=== PATIENT | female | born 1950 | race Caucasian/White ===

== ENCOUNTER 2021-12-28 13:40 | Emergency (ER) | payer MEDICARE, OTHER ==
[2021-12-28 13:52] VITALS: BP 190/78
[2021-12-28 14:13] LABS: BASOPHILS % (AUTO) 0.5 %; EOSINOPHILS # (AUTO) 0.2 10^3/uL (0.0-0.7); EOSINOPHILS % (AUTO) 1.9 %; HCT - HEMATOCRIT 46.8 % (37.0-47.0); HGB - HEMOGLOBIN 14.5 g/dL (12.0-16.0); LYMPHOCYTES # (AUTO) 1.3 10^3/uL (1.5-3.5); LYMPHOCYTES % (AUTO) 17.1 %; MEAN CORPUSCULAR HEMOGLOBIN 26.8 pg (27.0-31.0); MEAN CORPUSCULAR VOLUME 86.3 fL (81.0-99.0); MEAN PLATELET VOLUME 10.9 fL (7.9-10.8); MONOCYTES # (AUTO) 0.7 10^3/uL (0.0-1.0); MONOCYTES % (AUTO) 8.3 %; NEUTROPHILS # (AUTO) 5.7 10^3/uL (1.5-6.6); NEUTROPHILS % (AUTO) 71.9 %; PLT - PLATELET COUNT 153 10^3/uL (130-450); RED BLOOD COUNT 5.42 10^6/uL (4.20-5.40); RED CELL DISTRIBUTION WIDTH 13.9 % (12.0-15.0); WHITE BLOOD COUNT 7.9 x10^3/uL (4.8-10.8)
[2021-12-28 14:28] LABS: ALBUMIN 3.7 g/dL (3.2-5.5); ALKALINE PHOSPHATASE 63 IU/L (42-121); ALT ALANINE AMINOTRANSFERASE < 10 IU/L (10-60); AST ASPARTATE AMINOTRANSFERASE 13 IU/L (10-42); BILIRUBIN,TOTAL 0.3 mg/dL (0.2-1.0); BUN - BLOOD UREA NITROGEN 29 mg/dL (6-20); CALCIUM 9.6 mg/dL (8.5-10.3); CARBON DIOXIDE - CO2 28 mmol/L (21-32); CHLORIDE 102 mmol/L (101-111); CREATININE 1.3 mg/dL (0.4-1.0); GFR - MDRD 40 (>89); GLUCOSE 98 mg/dL (70-100); LIPASE 112 U/L (22-51); POTASSIUM 4.4 mmol/L (3.5-5.0); SODIUM 140 mmol/L (135-145); TOTAL PROTEIN 7.3 g/dL (6.7-8.2)
--- NOTE | 2021-12-28 14:45 | XRAY Report ---
PROCEDURE: Chest 1 View X-Ray INDICATIONS: Chest Pain TECHNIQUE: One view of the chest was acquired. COMPARISON: None. FINDINGS: Surgical changes and devices: Partially visualized IVC filter is noted. Lungs and pleura: There is blunting of the right costophrenic angle. Mild coarsening is present with in the right base. Mediastinum: Mediastinal contours appear normal. Heart size is mildly enlarged. Bones and chest wall: No suspicious bony lesions. Overlying soft tissues appear unremarkable. IMPRESSION: Trace blunting of the right costophrenic angle with basilar coarsening. This could represent trace ef fusion with atelectasis versus developing pneumonia. Reviewed by: Jazzy Tee MD on 12/28/2021 2:43 PM PST Approved by: Jazzy Tee MD on 12/28/2021 2:43 PM [facility] Station ID: [id number]
--- NOTE | 2021-12-28 15:44 | Ultrasound Report ---
PROCEDURE: Duplex Ext Veins Bilateral INDICATIONS: Joni Milligan MD TECHNIQUE: Real-time imaging, as well as color and pulse Doppler interrogation, were performed of the deep veins of both legs from the inguinal ligament to the popliteal fossa. COMPARISON: None FINDINGS: Right: Intraluminal filling defect within proximal right popliteal vein is seen. Right popliteal vein is partially compressible. Flow is seen proximal and distal to the filling defect. Left: The deep veins are normally compressible, and free of intraluminal thrombus. Color and pulse Doppler demonstrate normal phasic intravascular flow. There is normal augmentation response to distal compr ession maneuver. IMPRESSION: 1. Suggestion of chronic nonocclusive venous thrombosis involving proximal right popliteus vein. 2. No evidence of deep venous thrombosis is seen in visualized left lower extremity veins. Reviewed by: Jeff Duarte MD on 12/28/2021 3:43 PM PST Approved by: Jeff Duarte MD on 12/28/2021 3:43 PM PST Station ID: [id number]
[2021-12-28] MEDS ORDERED: FUROSEMIDE 20 MG TABLET PO STA (15:49)
[2021-12-28] MEDS ORDERED: HYDROcod/ACETAM 5/325 MG TABLET PO STA (15:49)
--- NOTE | 2021-12-28 15:57 | ED Physician Documentation ---
History of Present Illness - Stated complaint Stated Complaint: BLOOD CLOT ON BOTH LEGS - Chief complaint Chief Complaint: Cardiac - History obtained from History obtained from: Patient, Friend - History of Present Illness Timing: Other (several weeks) Pain level max: 6 Pain level now: 6 - Additonal information Additional information: Patient is a 71-year-old female who presents to the emergency department with swelling in her bilateral lower extremities for the past several weeks, increasingly swollen and painful over the past few days. Has not taken anything for pain. She went to the walk-in clinic today, they were concerned about a recurrent DVT so sent her here for ultrasound. The patient has also had mild shortness of breath with exertion. Does have a history of heart failure. Has not taken any diuretics. She is on Xarelto for prior DVTs and factor V Leiden deficiency. No fevers. No chills. No cough. No congestion. No nausea or vomiting. She does not wear socks or compression stockings. Worse with standing, better with elevating the legs. Review of Systems Constitutional: denies: Fever, Chills Nose: denies: Rhinorrhea / runny nose, Congestion Respiratory: denies: Cough GI: denies: Abdominal Pain, Nausea, Vomiting, Diarrhea Skin: denies: Rash Musculoskeletal: denies: Neck pain, Back pain Neurologic: denies: Headache PD PAST MEDICAL HISTORY - Past Medical History Past Medical History: Yes Cardiovascular: Congestive heart failure, Deep vein thrombosis, Other (Factor V Leiden) - Present Medications Home Medications: Ambulatory Orders Medication Instructions Recorded Confirmed Furosemide [Lasix] 20 mg PO DAILY #7 tablet 12/28/21 HYDROcod/ACETAM 5/325 [Holland 5/325] 1 - 2 ea PO Q6H PRN #10 tablet 12/28/21 - Allergies Allergies/Adverse Reactions: Allergies Allergy/AdvReac Type Severity Reaction Status Date / Time cortisone Allergy Hives Verified 12/28/21 13:52 lisinopril Allergy Unknown Verified 12/28/21 13:52 - Living Situation Living Arrangement: reports: At home - Family History Family history: reports: Non contributory PD ED PE NORMAL - Vitals Vital signs reviewed: Yes - General General: Alert and oriented X 3, No acute distress, Well developed/nourished - HEENT HEENT: PERRL, Moist mucous membranes - Neck Neck: Supple, no meningeal sign - Cardiac Cardiac: RRR, Strong equal pulses - Respiratory Respiratory: No respiratory distress, Clear bilaterally - Abdomen Abdomen: Soft, Non tender, Non distended - Derm Derm: Warm and dry, No rash - Extremities Extremities: Other (2+ bilateral pitting edema. Up to the knees. NVI. Brisk cap refill) - Neuro Neuro: Alert and oriented X 3 - Psych Psych: Normal mood, Normal affect Results - Vitals Vitals: Vital Signs - 24 hr 12/28/21 12/28/21 13:47 15:52 Temperature 36.9 C Heart Rate 57 L 55 L Respiratory 16 17 Rate Blood Pressure 190/78 H O2 Saturation 98 98 Oxygen O2 Source Room air - Labs Labs: Laboratory Tests 12/28/21 12/28/21 12/28/21 14:09 14:09 14:09 WBC 7.9 RBC 5.42 H Hgb 14.5 Hct 46.8 MCV 86.3 MCH 26.8 L MCHC 31.0 L RDW 13.9 Plt Count 153 MPV 10.9 H Neut # (Auto) 5.7 Lymph # (Auto) 1.3 L Dillon # (Auto) 0.7 Eos # (Auto) 0.2 Baso # (Auto) 0.0 Absolute Nucleated RBC 0.00 Nucleated RBC % 0.0 Sodium 140 Potassium 4.4 Chloride 102 Carbon Dioxide 28 Anion Gap 10.0 BUN 29 H Creatinine 1.3 H Estimated GFR (MDRD) 40 L Glucose 98 Calcium 9.6 Total Bilirubin 0.3 AST 13 ALT < 10 L Alkaline Phosphatase 63 B-Natriuretic Peptide 208 H Total Protein 7.3 Albumin 3.7 Globulin 3.6 Albumin/Globulin Ratio 1.0 Lipase 112 H - Rads (name of study) Duplex ultrasound bilateral lower extremity Radiology: Final report received, EMP read contemporaneously, See rad report (Chronic right lower extremity DVT) Chest x-ray Radiology: Final report received, EMP read contemporaneously, See rad report PD MEDICAL DECISION MAKING - ED course Complexity details: reviewed results, re-evaluated patient, considered differential, d/w patient, d/w family ED course: 71-year-old female with bilateral peripheral edema and what appears to be mild pulmonary vascular congestion on chest x-ray, mildly elevated BNP. We will place her on Lasix for a few days for the edema. No evidence of acute DVT or PE. Patient is ambulating without difficulty. Pain well controlled. Patient will follow up with her doctor for an echocardiogram and further work-up. Patient counseled regarding signs and symptoms for which I believe and urgent re-evaluation would be necessary. Patient with good understanding of and agreement to plan and is comfortable going home at this time This document was made in part using voice recognition software. While efforts are made to proofread this document, sound alike and grammatical errors may occur. Departure - Departure Disposition: 01 Home, Self Care Clinical Impression: Peripheral edema Congestive heart failure Qualifiers: Heart failure type: unspecified Heart failure chronicity: acute on chronic Qualified Code(s): I50.9 - Heart failure, unspecified Condition: Good Instructions: ED CHF General, ED Edema Legs Bilateral Follow-Up: STEFF BEASLEY DO [Primary Care Provider] - Within 1 week Prescriptions: Furosemide [Lasix] 20 mg PO DAILY #7 tablet HYDROcod/ACETAM 5/325 [Holland 5/325] 1 - 2 ea PO Q6H PRN #10 tablet PRN Reason: Pain Comments: Please follow-up with your doctor for further care. You appear to have a small exacerbation of your heart failure. You should have a repeat echocardiogram with your doctor. Please use the medications as prescribed. Return if you worsen. Your prescriptions were sent to [facility] in [place]. I am prescribing a short course of narcotic pain medication for you. These are potentially dangerous and addictive medications that should be used carefully. These medications may constipate you. Take an [id number] stool softener (docusate) twice daily with plenty of water while taking these medications. If you go 24 hours without a bowel movement, take [id number] miralax, per package instructions. Do not drink or drive while taking these medications. If you received narcotic or sedating medications while in the emergency department, do not drive for 24 hours. Store this medication in a safe, secure place and out of reach of children. It is a violation of federal law to give or sell this medication to another person or to use in a manner other than prescribed. The ED will not refill narcotic prescriptions, including prescriptions lost or stolen. To dispose of unwanted medications: 1. [facility] at [address] in [place] has a medication drop box. They accept prescription medications (in pill form) Friday through Friday 9:00 a.m. to 5:00 p.m. 2. The [facility] [employer] accepts prescription medications (in pill form only) for disposal year round. Call for more information. 3. Contact the [facility] for the next [facility] sponsored prescription drug collection event. , [phone], or [phone];
== END 2021-12-28 16:05 | disposition home or self-care (01) ==
LOC: ED 13:40
DX: I50.9 Heart failure, unspecified (principal); R60.0 Localized edema
CPT/HCPCS: 36415; 71045; 80053; 83690; 83880; 85025; 93005; 93970; 99284; A9270

== ENCOUNTER 2022-01-04 10:55 | Emergency (ER) | payer MEDICARE, OTHER ==
--- OUTSIDE RECORDS SUMMARY | 2022-01-04 12:22 | EXTERNAL MEDICAL SUMMARY RPT | Continuity of Care Document ---
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 (unknown) in her home. the (units (unknown) date) patient states that unknown) her fingers go numb. (unknown) (no (unknown) (unknown) internal bleeding (units (unknown) date) unknown) (unknown) (no (unknown) (unknown) is accompanied by her (un its (unknown) date) friend who is also her unknown ) caregiver. the patient states that (unknown) (no (unknown) (unknown) lisinopril Adverse (units (unknown) date) Reaction (Severe, unknown) Verified 01/02/22 07:24) (unknown) (no (unknown) (unknown) may occur. Occasional (un its (unknown) date) wrong-word or unknown) 'sound-alike' substitutions may have (unknown) (no (unknown) (unknown) minoxidil 2.5 mg (units (unknown) date) tablet See Rx unknown) Instructions .Route .COMPLEX #60 tabs 10/29/21 (unknown) (no (unknown) (unknown) mold [MOLD] Allergy (unit s (unknown) date) (Intermediate, unknown) Verified 01/02/22 07:24) (unknown) (no (unknown) (unknown) occurred due to the (unit s (unknown) date) inherent limitations unknown) of voice recognition software. Please (unknown) (no (unknown) (unknown) read the note (units ( unknown) date) carefully and unknown) recognize, using context, where these substitutions (unknown) (no (unknown) (unknown) rivaroxaban 20 mg (units (unknown) date) tablet (Xarelto) 20 mg unknown ) PO QPM #90 tabs 11/28/21 [Rx Confirmed (unknown) (no (unknown) (unknown) she went to the (units (unknown) date) [facility] on unknown) friday and they prescribed her a water pill. (unknown) (no (unknown) (unknown) software. Although (units (unknown) date) every effort is made unknown) to edit content, machine sewer errors (unknown) (no (unknown) (unknown) that the patient is (unit s (unknown) date) starting to forget unknown) daily tasks and where things are located (unknown) (no (unknown) (unknown) the patient states (units (unknown) date) the edema has not unknown) improved. the patients caregiver states Social History date description facility [id number]+0000 Current some day smoker [facility] +0000 Current some day smoker [facility] Vital Signs date measurement value units [id number]+0000 BMI BMI 31.4 kg/m2 [id number]+0000 BP_diastolic BP_diastolic 64 mmHg [id number]+0000 BP_systolic BP_systolic 110 mmHg [id number]+0000 heart_rate heart_rate 64 /min [id number]+0000 height_metric height_metric 170.18 cm [id number]+0000 height_standard height_standard 67 in [id number]+0000 temperature_metric temperature_metric 36.56 C [id number]+0000 temperature_standard temperature_standard 9 7.8 F [id number]+0000 weight_metric weight_metric 90.83 kg [id number]+0000 weight_standard weight_standard 200.25 lb [id number]+0000 BP_diastolic BP_diastolic 80 mmHg [id number]+0000 BP_systolic BP_systolic 150 mmHg [id number]+0000 heart_rate heart_rate 57 /min [id number]+0000 o2_saturation o2_saturation 99 % +0000 temperature_metric temperature_metric 36.61 C +0000 temperature_standard temperature_standard 9 7.9 F +0000 weight_metric weight_metric 97.52 kg [id number]+0000 weight_standard weight_standard 214.99 lb
--- NOTE | 2022-01-04 13:26 | XRAY Report ---
PROCEDURE: Chest 1 View X-Ray INDICATIONS: Chest pain TECHNIQUE: One view of the chest was acquired. COMPARISON: 12/28/2021. FINDINGS: Surgical changes and devices: None. Lungs and pleura: Trace right pleural effusion. Mild interstitial pulmonary edema. Mediastinum: Mediastinal contours appear normal. Mild cardiomegaly. Bones and chest wall: No suspicious bony lesions. 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 Overlying soft tissues appear unremarkable. IMPRESSION: Mild congestive heart failure exacerbation. Reviewed by: Be Winter MD on 01/04/2022 1:25 PM PST Approved by: Be Winter MD on 01/04/2022 1:25 PM PST Station ID: [id number]
[2022-01-04 13:38] LABS: BASOPHILS % (AUTO) 0.6 %; EOSINOPHILS # (AUTO) 0.2 10^3/uL (0.0-0.7); EOSINOPHILS % (AUTO) 2.3 %; HCT - HEMATOCRIT 49.4 % (37.0-47.0); HGB - HEMOGLOBIN 15.3 g/dL (12.0-16.0); LYMPHOCYTES # (AUTO) 1.1 10^3/uL (1.5-3.5); LYMPHOCYTES % (AUTO) 16.2 %; MEAN CORPUSCULAR HEMOGLOBIN 26.6 pg (27.0-31.0); MEAN CORPUSCULAR VOLUME 85.9 fL (81.0-99.0); MEAN PLATELET VOLUME 10.5 fL (7.9-10.8); MONOCYTES # (AUTO) 0.3 10^3/uL (0.0-1.0); MONOCYTES % (AUTO) 4.6 %; PLT - PLATELET COUNT 213 10^3/uL (130-450); RED BLOOD COUNT 5.75 10^6/uL (4.20-5.40); RED CELL DISTRIBUTION WIDTH 13.7 % (12.0-15.0); WHITE BLOOD COUNT 6.6 x10^3/uL (4.8-10.8)
[2022-01-04 13:56] LABS: ALBUMIN 4.2 g/dL (3.2-5.5); BILIRUBIN,TOTAL 0.6 mg/dL (0.2-1.0); CALCIUM 9.4 mg/dL (8.5-10.3); CREATININE 1.5 mg/dL (0.4-1.0); TOTAL PROTEIN 8.5 g/dL (6.7-8.2)
--- NOTE | 2022-01-04 14:40 | ED Physician Documentation ---
PD HPI DYSPNEA - Stated complaint Stated Complaint: SWELLING BOTH LEGS - Chief complaint Chief Complaint: Cardiac - History obtained from History obtained from: Patient - Additional information Additional information: 71-year-old woman with history of CHF presents with a friend for apparent CHF exacerbation. She also has a history of DVT on DOAC. She was seen in this emergency department on the th of this month and treated with diuretics and was doing well but had more pedal edema and was seen at [facility] and prescribed lisinopril and increased dose of diuretics. Unfortunately she is allergic to lisinopril and they sent to the wrong pharmacy so she presents here for evaluation and treatment. She has no dyspnea on rest, she does have dyspnea with ambulation and complains of pain and swelling both legs. Review of Systems Ten Systems: 10 systems reviewed and negative Constitutional: reports: Reviewed and negative Ears: reports: Reviewed and negative Throat: reports: Reviewed and negative PD PAST MEDICAL HISTORY - Past Medical History Cardiovascular: Congestive heart failure, Deep vein thrombosis, Other (Factor V Leiden) - Present Medications Home Medications: Ambulatory Orders Medication Instructions Recorded Confirmed Furosemide [Lasix] 20 mg PO DAILY #7 tablet 12/28/21 HYDROcod/ACETAM 5/325 [[place] 5/325] 1 - 2 ea PO Q6H PRN #10 tablet 12/28/21 Furosemide [Lasix] 40 mg PO DAILY #20 tablet 01/04/22 Isosorbide Mononitrate [Isosorbide 60 mg PO DAILY #20 tab 01/04/22 Mononitrate ER] Potassium Chloride 10 meq PO DAILY #20 tab 01/04/22 - Allergies Allergies/Adverse Reactions: Allergies Allergy/AdvReac Type Severity Reaction Status Date / Time cortisone Allergy Hives Verified 01/04/22 12:56 lisinopril Allergy Unknown Verified 01/04/22 12:56 PD ED PE NORMAL - Vitals Vital signs reviewed: Yes - General General: Alert and oriented X 3, No acute distress - Cardiac Cardiac: RRR, No murmur - Respiratory Respiratory: Other (Diminished at the bases without rales) - Back Back: No CVA TTP, No spinal TTP - Derm Derm: Normal color, Warm and dry - Extremities Extremities: Other (2+ pitting pedal edema to the mid calf, nontender, no cellulitis) Results - Vitals Vitals: Vital Signs - 24 hr 01/04/22 12:51 Temperature 37.5 C Heart Rate 53 L Respiratory 20 Rate Blood Pressure 189/81 H O2 Saturation 96 Oxygen O2 Source Room air - EKG (time done) 1302 Rate: Rate (enter#) (62) Rhythm: NSR [place]: Normal Intervals: Normal UT QRS: Normal Ischemia: No: ST elevation c/w ischemia, ST elevation c/w repol Computer interpretation: Agree with computer - Labs Labs: Laboratory Tests 01/04/22 01/04/22 01/04/22 13:32 13:32 13:32 WBC 6.6 RBC 5.75 H Hgb 15.3 Hct 49.4 H MCV 85.9 MCH 26.6 L MCHC 31.0 L RDW 13.7 Plt Count 213 MPV 10.5 Neut # (Auto) 5.0 Lymph # (Auto) 1.1 L Rankin # (Auto) 0.3 Eos # (Auto) 0.2 Baso # (Auto) 0.0 Absolute Nucleated RBC 0.00 Nucleated RBC % 0.0 Sodium 141 Potassium Chloride 105 Carbon Dioxide 26 Anion Gap 10.0 BUN 27 H Creatinine 1.5 H Estimated GFR (MDRD) 34 L Glucose 90 Calcium 9.4 Total Bilirubin 0.6 AST 23 ALT 13 Alkaline Phosphatase 76 Troponin I High Sens 15.9 H* B-Natriuretic Peptide Total Protein 8.5 H Albumin 4.2 Globulin 4.3 H Albumin/Globulin Ratio 1.0 Lipase 46 01/04/22 13:32 WBC RBC Hgb Hct MCV MCH MCHC RDW Plt Count MPV Neut # (Auto) Lymph # (Auto) Rankin # (Auto) Eos # (Auto) Baso # (Auto) Absolute Nucleated RBC Nucleated RBC % Sodium Potassium Chloride Carbon Dioxide Anion Gap BUN Creatinine Estimated GFR (MDRD) Glucose Calcium Total Bilirubin AST ALT Alkaline Phosphatase Troponin I High Sens B-Natriuretic Peptide 308 H Total Protein Albumin Globulin Albumin/Globulin Ratio Lipase PD MEDICAL DECISION MAKING - ED course ED course: This is a david 71-year-old woman who presents with a mild exacerbation of heart failure, Single view chest x-ray interpreted contemporaneously by me demonstrates mild CHF, Lab work demonstrates mildly elevated BNP, up about 100 points from the previous value, troponin elevated at 15.9 but still minimally elevated that it probably does not merit further immediate work-up. She is started on a higher dose of Lasix. Lisinopril was held given allergy, she thinks her allergy was angioedema so I am not prescribing SILVERIO inhibitor either and we are starting some Imdur. Departure - Departure Disposition: Home, Self Care Clinical Impression: Peripheral edema Congestive heart failure Qualifiers: Heart failure type: unspecified Heart failure chronicity: unspecified Qualified Code(s): I50.9 - Heart failure, unspecified Condition: Good Record reviewed to determine appropriate education?: Yes Instructions: ED CHF General Prescriptions: Isosorbide Mononitrate [Isosorbide Mononitrate ER] 60 mg PO DAILY #20 tab Furosemide [Lasix] 40 mg PO DAILY #20 tablet Potassium Chloride 10 meq PO DAILY #20 tab Comments: I sent your prescriptions electronically to [facility] in [place]. Follow-up with your doctor on Friday as scheduled. Return for new or worsening symptoms. Elevate the legs and wrap as you have planned. Low-salt diet.
[2022-01-04 15:07] VITALS: BP 183/84
== END 2022-01-04 14:52 | disposition home or self-care (01) ==
LOC: ED 10:55
DX: I50.9 Heart failure, unspecified (principal); D68.51 Activated protein C resistance; Z86.718 Personal history of other venous thrombosis and embolism; Z79.01 Long term (current) use of anticoagulants; Z88.8 Allergy status to other drugs, medicaments and biological substances
CPT/HCPCS: 36415; 80053; 83690; 83880; 84484; 85025; 93005; 99284

== ENCOUNTER 2022-02-18 11:18 | Emergency (ER) | payer MEDICARE, OTHER ==
[2022-02-18 12:16] LABS: BASOPHILS # (AUTO) 0.1 10^3/uL (0.0-0.1); BASOPHILS % (AUTO) 0.7 %; EOSINOPHILS # (AUTO) 0.2 10^3/uL (0.0-0.7); EOSINOPHILS % (AUTO) 3.2 %; HCT - HEMATOCRIT 49.6 % (37.0-47.0); HGB - HEMOGLOBIN 15.7 g/dL (12.0-16.0); LYMPHOCYTES # (AUTO) 1.5 10^3/uL (1.5-3.5); LYMPHOCYTES % (AUTO) 21.1 %; MEAN CORPUSCULAR HEMOGLOBIN 27.5 pg (27.0-31.0); MEAN CORPUSCULAR HGB CONC 31.7 g/dL (32.0-36.0); MEAN PLATELET VOLUME 10.6 fL (7.9-10.8); MONOCYTES # (AUTO) 0.4 10^3/uL (0.0-1.0); NEUTROPHILS # (AUTO) 4.9 10^3/uL (1.5-6.6); NEUTROPHILS % (AUTO) 68.6 %; PLT - PLATELET COUNT 210 10^3/uL (130-450); RED CELL DISTRIBUTION WIDTH 13.8 % (12.0-15.0); WHITE BLOOD COUNT 7.2 x10^3/uL (4.8-10.8)
--- OUTSIDE RECORDS SUMMARY | 2022-02-18 12:25 | EXTERNAL MEDICAL SUMMARY RPT | Continuity of Care Document ---
:1950 Author Organization [facility] Address [address] [place] [address] Phone Care Team Providers Name Role Phone Carlitos Forrest Unavailable Unavailable Allergies and Intolerances date description facility type (no date) Mild [facility] (unknown) (no date) aspirin [facility] (unknown) (no date) cortisone [facility] (unknown) (no date) lisinopril [facility] (unknown) (no date) mold [facility] (unknown) Encounters No information. Functional Status No information. Immunizations No information. Medications date description facility 2021-11-28 00:00 Rivaroxaban [facility] 2022-01-02 00:00 Potassium Chloride [facility] 2022-01-25 00:00 Potassium Chloride [facility] 2022-01-25 00:00 Amlodipine [facility] 2022-01-02 00:00 Amlodipine [facility] 2022-01-02 00:00 Furosemide [facility] 2022-01-25 00:00 Furosemide [facility] 2022-01-24 00:00 Isosorbide Mononitrate [facility] Problems date description facility 2021-11-28 00:00 Sebaceous cyst [facility] 2021-12-03 15:28 Activated protein C resistance [facility] 2021-12-03 15:28 Presence of other vascular implants and grafts [facility] 2021-12-04 09:16 Activated protein C resistance [facility] 2021-12-04 09:16 Presence of other vascular implants and grafts [facility] 2021-12-04 11:34 Activated protein C resistance [facility] 2021-12-04 11:34 Presence of other vascular implants and grafts [facility] 2021-12-28 00:00 Patient left before treatment completed [facility] 2022-01-02 00:00 Benign essential hypertension [facility] 2022-01-02 10:06 Nicotine dependence, unspecified, uncom plicated [facility] 2022-01-02 10:06 Localized edema [facility] 2022-01-24 00:00 Acute congestive heart failure [facility] 2022-01-25 00:00 Tobacco dependence syndrome [facility] 2022-01-25 00:00 Chronic obstructive pulmonary disease [facility] Procedures date description facility 2022-01-24 00:00 X-ray of chest, single view [facility] Results/Labs test date author facility value unit interpret ation Result panel 1 (unknown[facility] (no [facility]) Result panel 2 (unknown) (no date) ([facility] Result panel 3 (unknown) (no date) (unknown[facility] Result panel 4 (unknown) (no date) (unknown[facility] Result panel 5 (unknown) (no date) (unknown[facility] Result panel 6 (unknown) (no date) (unknown[facility] Result panel 7 (unknown) (no date) (unknown[facility] Result panel 8 (unknown) (no date) (unknown[facility] Result panel 9 (unknown) (no date) (unknown[facility] Result panel 10 (unknown) (no date) (unknown[facility] Result panel 11 (unknown) (no date) (unknown[facility] Result panel 12 (unknown) (no date) (unknown[facility] Result panel 13 (unknown) (no date) (unknown[facility] Result panel 14 (unknown) (no date) (unknown[facility] Result panel 15 (unknown) (no date) (unknown[facility] Result panel 16 (unknown) (no date) (unknown[facility] Result panel 17 (unknown) (no date) (unknown[facility] Result panel 18 (unknown) (no date) (unknown[facility] Result panel 19 (unknown) (no date) (unknown[facility] Result panel 20 (unknown) (no date) (unknown[facility] Result panel 21 (unknown) (no date) (unknown[facility] Result panel 22 (unknown) (no date) (unknown[facility] Result panel 23 (unknown) (no date) (unknown[facility] Result panel 24 (unknown) (no date) (unknown[facility] Result panel 25 (unknown) (no date) (unknown[facility] Result panel 26 (unknown) (no date) (unknown[facility] Result panel 27 (unknown) (no date) (unknown[facility] Result panel 28 (unknown) (no date) (unknown[facility] Result panel 29 (unknown) (no date) (unknown[facility] Result panel 30 (unknown) (no date) (unknown[facility] Result panel 31 (unknown) (no date) (unknown[facility] Result panel 32 (unknown) (no date) (unknown[facility] Result panel 33 (unknown) (no date) (unknown[facility] Result panel 34 (unknown) (no date) (unknown[facility] Result panel 35 (unknown) (no date) (unknown[facility] Result panel 36 (unknown) (no date) (unknown[facility] Result panel 37 (unknown) (no date) (unknown[facility] Result panel 38 (unknown) (no date) (unknown[facility] Result panel 39 (unknown) (no date) (unknown[facility]) Result panel 40 (unknown) (no date) (unknown[facility] Result panel 41 (unknown) (no date) (unknown[facility] Result panel 42 (unknown) (no date) (unknown[facility] Result panel 43 (unknown) (no date) (unknown[facility] Result panel 44 (unknown) (no date) (unknown[facility] Result panel 45 (unknown) (no date) (unknown[facility] Result panel 46 (unknown) (no date) (unknown[facility] Result panel 47 (unknown) (no date) (unknown[facility] Result panel 48 (unknown) (no date) (unknown[facility] Result panel 49 (unknown) (no date) (unknown[facility] Result panel 50 (unknown) (no date) (unknown[facility] Result panel 51 (unknown) (no date) (unknown[facility] Result panel 52 (unknown) (no date) (unknown[facility]) Result panel 53 (unknown) (no date) (unknown[facility] Result panel 54 (unknown) (no date) (unknown[facility]) Result panel 55 (unknown) (no date) (unknown[facility] Result panel 56 (unknown) (no date) (unknown[facility]) Result panel 57 (unknown) (no date) (unknown[facility] Result panel 58 (unknown) (no date) (unknown[facility]) Result panel 59 (unknown) (no date) (unknown[facility] Result panel 60 (unknown) (no date) (unknown[facility]) Result panel 61 (unknown) (no date) (unknown[facility] Result panel 62 (unknown) (no date) (unknown[facility] Result panel 63 (unknown) (no date) (unknown[facility] Result panel 64 (unknown) (no date) (unknown[facility]) Result panel 65 (unknown) (no date) (unknown[facility] Result panel 66 (unknown) (no date) (unknown[facility]) Result panel 67 (unknown) (no date) (unknown[facility] Result panel 68 (unknown) (no date) (unknown[facility] Result panel 69 (unknown) (no date) (unknown[facility]) Result panel 70 (unknown) (no date) (unknown[facility] Result panel 71 (unknown) (no date) (unknown[facility]) Result panel 72 (unknown) (no date) (unknown[facility] Result panel 73 (unknown) (no date) (unknown[facility] Result panel 74 (unknown) (no date) (unknown[facility] Result panel 75 (unknown) (no date) (unknown[facility]) Result panel 76 (unknown) (no date) (unknown[facility] Result panel 77 (unknown) (no date) (unknown[facility]) Result panel 78 (unknown) (no date) (unknown[facility] Result panel 79 (unknown) (no date) (unknown[facility]) Result panel 80 (unknown) (no date) (unknown[facility] Result panel 81 (unknown) (no date) (unknown[facility] Result panel 82 (unknown) (no date) (unknown[facility] Result panel 83 (unknown) (no date) (unknown[facility] Result panel 84 (unknown) (no date) (unknown[facility] Result panel 85 (unknown) (no date) (unknown[facility] Result panel 86 (unknown) (no date) (unknown[facility] Result panel 87 (unknown) (no date) (unknown[facility] Result panel 88 (unknown) (no date) (unknown[facility] Result panel 89 (unknown) (no date) (unknown[facility] Result panel 90 (unknown) (no date) (unknown[facility] Result panel 91 (unknown) (no date) (unknown[facility] Result panel 92 (unknown) (no date) (unknown[facility] Result panel 93 (unknown) (no date) (unknown[facility] Result panel 94 (unknown) (no date) (unknown[facility] Result panel 95 (unknown) (no date) (unknown[facility] Result panel 96 (unknown) (no date) (unknown[facility] Result panel 97 (unknown) (no date) (unknown[facility] Result panel 98 (unknown) (no date) (unknown[facility]) Result panel 99 (unknown) (no date) (unknown[facility] Result panel 100 (unknown) (no date) (unknown[facility] Result panel 101 (unknown) (no date) (unknown[facility]) Result panel 102 (unknown) (no date) (unknown[facility] Result panel 103 (unknown) (no date) (unknown[facility] Result panel 104 (unknown) (no date) (unknown[facility]) Result panel 105 (unknown) (no date) (unknown[facility] Result panel 106 (unknown) (no date) (unknown[facility]) Result panel 107 (unknown) (no date) (unknown[facility] Result panel 108 (unknown) (no date) (unknown[facility] Result panel 109 (unknown) (no date) (unknown[facility]) Result panel 110 (unknown) (no date) (unknown[facility]) Result panel 111 (unknown) (no date) (unknown[facility] Result panel 112 (unknown) (no date) (unknown[facility]) Result panel 113 (unknown) (no date) (unknown[facility] Result panel 114 (unknown) (no date) (unknown[facility] Result panel 115 (unknown) (no date) (unknown[facility]) Result panel 116 (unknown) (no date) (unknown[facility] Result panel 117 (unknown) (no date) (unknown[facility]) Result panel 118 (unknown) (no date) (unknown[facility] Result panel 119 (unknown) (no date) (unknown[facility] Result panel 120 (unknown) (no date) (unknown[facility]) Result panel 121 (unknown) (no date) (unknown[facility] Result panel 122 (unknown) (no date) (unknown[facility]) Result panel 123 (unknown) (no date) (unknown[facility] Result panel 124 (unknown) (no date) (unknown[facility]) Result panel 125 (unknown) (no date) (unknown[facility] Result panel 126 (unknown) (no date) (unknown[facility]) Result panel 127 (unknown) (no date) (unknown[facility] Result panel 128 (unknown) (no date) (unknown[facility] Result panel 129 (unknown) (no date) (unknown[facility]) Result panel 130 (unknown) (no date) (unknown[facility]) Result panel 131 (unknown) (no date) (unknown[facility] Result panel 132 (unknown) (no date) (unknown[facility]) Result panel 133 (unknown) (no date) (unknown[facility] Result panel 134 (unknown) (no date) (unknown[facility]) Result panel 135 (unknown) (no date) (unknown[facility] Result panel 136 (unknown) (no date) (unknown[facility]) Result panel 137 (unknown) (no date) (unknown[facility]) Result panel 138 (unknown) (no date) (unknown[facility] Result panel 139 (unknown) (no date) (unknown[facility]) Result panel 140 (unknown) (no date) (unknown[facility] Result panel 141 (unknown) (no date) (unknown[facility]) Result panel 142 (unknown) (no date) (unknown[facility] Result panel 143 (unknown) (no date) (unknown[facility]) Result panel 144 (unknown) (no date) (unknown[facility] Result panel 145 (unknown) (no date) (unknown[facility]) Result panel 146 (unknown) (no date) (unknown[facility] Result panel 147 (unknown) (no date) (unknown[facility] Result panel 148 (unknown) (no date) (unknown[facility] Result panel 149 (unknown) (no date) (unknown[facility]) Result panel 150 (unknown) (no date) (unknown[facility]) Result panel 151 (unknown) (no date) (unknown) [facility] Result panel 152 (unknown) (no date) (unknown[facility]) Result panel 153 (unknown) (no date) (unknown[facility] Result panel 154 (unknown) (no date) (unknown[facility] Result panel 155 (unknown) (no date) (unknown[facility]) Result panel 156 (unknown) (no date) (unknown) [facility] Result panel 157 (unknown) (no date) (unknown) [facility]) Result panel 158 (unknown) (no date) (unknown) [facility]) Result panel 159 (unknown) (no date) (unknown) [facility] Result panel 160 (unknown) (no date) (unknown) [facility]) Result panel 161 (unknown) (no date) (unknown) [facility] Result panel 162 (unknown) (no date) (unknown) [facility]) Result panel 163 (unknown) (no date) (unknown) [facility] Result panel 164 (unknown) (no date) (unknown[facility]) Result panel 165 (unknown) (no date) (unknown[facility] Result panel 166 (unknown) (no date) (unknown[facility]) Result panel 167 (unknown) (no date) (unknown[facility] Result panel 168 (unknown) (no date) (unknown[facility] Result panel 169 (unknown) (no date) (unknown[facility] Result panel 170 (unknown) (no date) (unknown[facility] Result panel 171 (unknown) (no date) (unknown[facility] Result panel 172 (unknown) (no date) (unknown[facility] Result panel 173 (unknown) (no date) (unknown[facility] Result panel 174 (unknown) (no date) (unknown[facility] Result panel 175 (unknown) (no date) (unknown) [facility] Result panel 176 (unknown) (no date) (unknown) [facility] Result panel 177 (unknown) (no date) (unknown[facility]) Result panel 178 (unknown) (no date) (unknown) [facility] Result panel 179 (unknown) (no date) (unknown) [facility] Result panel 180 (unknown) (no date) (unknown[facility] Result panel 181 (unknown) (no date) (unknown[facility] Result panel 182 (unknown) (no date) (unknown[facility] Result panel 183 (unknown) (no date) (unknown[facility] Result panel 184 (unknown) (no date) (unknown[facility] Result panel 185 (unknown) (no date) (unknown[facility] Result panel 186 (unknown) (no date) (unknown[facility] Result panel 187 (unknown) (no date) (unknown[facility] Result panel 188 (unknown) (no date) (unknown[facility] Result panel 189 (unknown) (no date) (unknown[facility] Result panel 190 (unknown) (no date) (unknown[facility] Result panel 191 (unknown) (no date) (unknown[facility] Result panel 192 (unknown) (no date) (unknown[facility] Result panel 193 (unknown) (no date) (unknown[facility] Result panel 194 (unknown) (no date) (unknown[facility] Result panel 195 (unknown) (no date) (unknown[facility] Result panel 196 (unknown) (no date) (unknown[facility] Result panel 197 (unknown) (no date) (unknown[facility] Result panel 198 (unknown) (no date) (unknown[facility]) Result panel 199 (unknown) (no date) (unknown[facility] Result panel 200 (unknown) (no date) (unknown) [facility]) Result panel 201 (unknown) (no date) (unknown) [facility] Result panel 202 (unknown) (no date) (unknown[facility] Result panel 203 (unknown) (no date) (unknown[facility] Result panel 204 (unknown) (no date) (unknown[facility] Result panel 205 (unknown) (no date) (unknown[facility] Result panel 206 (unknown) (no date) (unknown[facility] Result panel 207 (unknown) (no date) (unknown[facility] Result panel 208 (unknown) (no date) (unknown[facility] Result panel 209 (unknown) (no date) (unknown[facility] Result panel 210 (unknown) (no date) (unknown[facility] Result panel 211 (unknown) (no date) (unknown[facility] Result panel 212 (unknown) (no date) (unknown[facility] Result panel 213 (unknown) (no date) (unknown[facility] Result panel 214 (unknown) (no date) (unknown[facility] Result panel 215 (unknown) (no date) (unknown) [facility] value) [facility] unknown) Result panel 216 (unknown) (no date) (unknown) [facility]) Result panel 217 (unknown) (no date) (unknown) [facility] Result panel 218 (unknown) (no date) (unknown) [facility]) Result panel 219 (unknown) (no date) (unknown) [facility]) Result panel 220 (unknown) (no date) (unknown) [facility]) Result panel 221 (unknown) (no date) (unknown) [facility]) Result panel 222 (unknown) (no date) (unknown) [facility]) Result panel 223 (unknown) (no date) (unknown) [facility]) Result panel 224 (unknown) (no date) (unknown) [facility]) Result panel 225 (unknown) (no date) (unknown) [facility]) Result panel 226 (unknown) (no date) (unknown) [facility]) Result panel 227 (unknown) (no date) (unknown) [facility]) Result panel 228 (unknown) (no date) (unknown) [facility]) Result panel 229 (unknown) (no date) (unknown) [facility]) Result panel 230 (unknown) (no date) (unknown) [facility]) Result panel 231 (unknown) (no date) (unknown) [facility]) Result panel 232 (unknown) (no date) (unknown) [facility]) Result panel 233 (unknown) (no date) (unknown) [facility]) Result panel 234 (unknown) (no date) (unknown) [facility]) Result panel 235 (unknown) (no date) (unknown) [facility]) Result panel 236 (unknown) (no date) (unknown) [facility]) Result panel 237 (unknown) (no date) (unknown) [facility]) Result panel 238 (unknown) (no date) (unknown) [facility]) Result panel 239 (unknown) (no date) (unknown) [facility]) Result panel 240 (unknown) (no date) (unknown) [facility]) Result panel 241 (unknown) (no date) (unknown) [facility]) Result panel 242 (unknown) (no date) (unknown) [facility]) Result panel 243 (unknown) (no date) (unknown) [facility]) Result panel 244 (unknown) (no date) (unknown) [facility]) Result panel 245 (unknown) (no date) (unknown) [facility]) Result panel 246 (unknown) (no date) (unknown) [facility]) Result panel 247 (unknown) (no date) (unknown) [facility]) Result panel 248 (unknown) (no date) (unknown) [facility]) Result panel 249 (unknown) (no date) (unknown) [facility]) Result panel 250 (unknown) (no date) (unknown) [facility]) Result panel 251 (unknown) (no date) (unknown) [facility]) Result panel 252 (unknown) (no date) (unknown) [facility]) Result panel 253 (unknown) (no date) (unknown) [facility]) Result panel 254 (unknown) (no date) (unknown) [facility]) Result panel 255 (unknown) (no date) (unknown) [facility]) Result panel 256 (unknown) (no date) (unknown) [facility]) Result panel 257 (unknown) (no date) (unknown) [facility]) Result panel 258 (unknown) (no date) (unknown) [facility]) Result panel 259 (unknown) (no date) (unknown) [facility]) Result panel 260 (unknown) (no date) (unknown) [facility]) Result panel 261 (unknown) (no date) (unknown) [facility]) Result panel 262 (unknown) (no date) (unknown) [facility]) Result panel 263 (unknown) (no date) (unknown) [facility]) Result panel 264 (unknown) (no date) (unknown) [facility]) Result panel 265 (unknown) (no date) (unknown) [facility]) Result panel 266 (unknown) (no date) (unknown) [facility]) Result panel 267 (unknown) (no date) (unknown) [facility]) Result panel 268 (unknown) (no date) (unknown) [facility] Result panel 269 (unknown) (no (unknown) (unknown) (no value) (units (unk nown) date) unknown) (unknown) (no (unknown) (unknown) [phone] (units (unkn own) date) unknown) (unknown) (no (unknown) (unknown) 10/18/21 (units (unkno wn) date) unknown) (unknown) (no (unknown) (unknown) 71-year-old woman (units (unknown) date) with history of unknown) hypertension, hyperlipidemia, CHF, (unknown) (no (unknown) (unknown) Age/Sex: 71 / F Date (uni ts (unknown) date) of Service: unknown) (unknown) (no (unknown) (unknown) Allergies (units (unkn own) date) unknown) (unknown) (no (unknown) (unknown) [place] [address] (unit s (unknown) date) unknown) (unknown) (no (unknown) (unknown) Asymptomatic (units (u nknown) date) hypertensive urgency unknown) (unknown) (no (unknown) (unknown) Attending Dr: Carlitos Jackson (uni ts (unknown) date) Lon BaughOPaco unknown) (unknown) (no (unknown) (unknown) [place] [...] (unknown) (unknown) : 1950 (units (unknown) date) Acct:[id number] unknown) (unknown) (no (unknown) (unknown) Dept at (units (unkno wn) date) . unknown) (unknown) (no (unknown) (unknown) Details: (units (unkno wn) date) unknown) (unknown) (no (unknown) (unknown) Documented By: (units (unknown) date) Carlitos Forrest DPacoOPaco unknown) 11/28/21 9930 (unknown) (no (unknown) (unknown) Draft (units (unkno [...] effort is made unknown) to edit content, paste worker errors Result panel 270 (unknown) (no (unknown) (unknown) (no value) (units (unk nown) date) unknown) (unknown) (no (unknown) (unknown) [phone] (units (unkn own) date) unknown) (unknown) (no (unknown) (unknown) 11/28/21 (units (unkno wn) date) unknown) (unknown) (no (unknown) (unknown) 71-year-old woman (units (unknown) date) with history of unknown) hypertension, hyperlipidemia, CHF, (unknown) (no (unknown) (unknown) Age/Sex: 71 / F Date (uni ts (unknown) date) of Service: unknown) (unknown) (no (unknown) (unknown) Allergies (units (unkn own) date) unknown) (unknown) (no (unknown) (unknown) [place] [address] (unit s (unknown) date) unknown) (unknown) (no [...] (unknown) (unknown) : 1950 (units (unknown) date) Acct:[id number] unknown) (unknown) (no (unknown) (unknown) Dept at [...] effort is made unknown) to edit content, paste worker errors (unknown) (no (unknown) (unknown) with family seem to (unit s (unknown) date) have settled down unknown) considerably. Result panel 271 (unknown) (no (unknown) (unknown) (no value) (units (unk nown) date) unknown) (unknown) (no (unknown) (unknown) [phone] (units (unkn own) date) unknown) (unknown) (no [...] own) date) unknown) (unknown) (no (unknown) (unknown) [place] [address] (unit s (unknown) date) unknown) (unknown) (no [...] (unknown) (unknown) : 1950 (units (unknown) date) Acct:[id number] unknown) (unknown) (no (unknown) (unknown) Dept at [...] effort is made unknown) to edit content, paste worker errors (unknown) (no (unknown) (unknown) with family seem to (unit s (unknown) date) have settled down unknown) considerably. Result panel 272 (unknown) (no (unknown) (unknown) (no value) (units (unk nown) date) unknown) (unknown) (no (unknown) (unknown) [phone] (units (unkn own) date) unknown) (unknown) (no [...] own) date) unknown) (unknown) (no (unknown) (unknown) [place] [address] (unit s (unknown) date) unknown) (unknown) (no [...] (unknown) (unknown) : 1950 (units (unknown) date) Acct:[id number] unknown) (unknown) (no (unknown) (unknown) Dept at [...] effort is made unknown) to edit content, paste worker errors Result panel 273 (unknown) (no (unknown) (unknown) (no value) (units (unk nown) date) unknown) (unknown) (no (unknown) (unknown) [phone] (units (unkn own) date) unknown) (unknown) (no [...] own) date) unknown) (unknown) (no (unknown) (unknown) [place] [address] (unit s (unknown) date) unknown) (unknown) (no [...] (unknown) (unknown) : 1950 (units (unknown) date) Acct:[id number] unknown) (unknown) (no (unknown) (unknown) Dept at [...] effort is made unknown) to edit content, paste worker errors Result panel 274 (unknown) (no (unknown) (unknown) (no value) (units (unk nown) date) unknown) (unknown) (no (unknown) (unknown) [phone] (units (unkn own) date) unknown) (unknown) (no [...] own) date) unknown) (unknown) (no (unknown) (unknown) [place] [address] (unit s (unknown) date) unknown) (unknown) (no (unknown) (unknown) Assessment + Plan (units (unknown) date) unknown) (unknown) (no (unknown) (unknown) Asymptomatic (units (u nknown) date) hypertensive urgency unknown) (unknown) (no (unknown) (unknown) Attending Dr: Carlitos Jackson (uni ts (unknown) date) Lon DLucinda unknown) (unknown) (no (unknown) (unknown) BMI 31.4 [...] (unknown) (unknown) : 1950 (units (unknown) date) Acct:[id number] unknown) (unknown) (no (unknown) (unknown) Dept at [...] effort is made unknown) to edit content, paste worker errors (unknown) (no (unknown) (unknown) they started trying (unit s (unknown) date) to charge her 400 unknown) dollars a month for it. She reports her (unknown) (no (unknown) (unknown) with pronounced (units (unknown) date) anterior carriage of unknown) head and increased cervical lordosis, Result panel 275 (unknown) (no (unknown) (unknown) (no value) (units [...] unknown) pulmonary embolus: (unknown) (no (unknown) (unknown) [phone] (units (unkn own) date) unknown) (unknown) (no [...] own) date) unknown) (unknown) (no (unknown) (unknown) [place] [address] (unit s (unknown) date) unknown) (unknown) (no [...] (unknown) date) OMT 1-2 Body Regions- unknown) [id number] (Cranial, cervical, ribcage) (unknown) (no (unknown) (unknown) [...] (unknown) (unknown) : 1950 (units (unknown) date) Acct:[id number] unknown) (unknown) (no (unknown) (unknown) Dept at (units (unkno wn) date) . unknown) (unknown) (no (unknown) (unknown) Details: (units (unkno wn) date) unknown) (unknown) (no (unknown) (unknown) Disabled Parking (units (unknown) date) Permit ##1 11/28/21 unknown) [Rx Confirmed 11/28/21] (unknown) (no (unknown) (unknown) Documented By: (units (unknown) date) Carlitos oFrrest D.O. unknown) 11/28/21 0730 (unknown) (no (unknown) [...] effort is made unknown) to edit content, paste worker errors (unknown) (no (unknown) (unknown) surfaces. (units [...] date) consciousness, sequela unknown ) Result panel 276 (unknown) (no (unknown) (unknown) (no value) (units [...] unknown) pulmonary embolus: (unknown) (no (unknown) (unknown) [phone] (units (unkn own) date) unknown) (unknown) (no [...] own) date) unknown) (unknown) (no (unknown) (unknown) [place] [address] (unit s (unknown) date) unknown) (unknown) (no [...] (unknown) date) OMT 1-2 Body Regions- unknown) 02641 (Cranial, cervical, ribcage) (unknown) (no (unknown) (unknown) [...] (unknown) (unknown) : 1950 (units (unknown) date) Acct:[id number] unknown) (unknown) (no (unknown) (unknown) Dept at (units (unkno wn) date) . unknown) (unknown) (no (unknown) (unknown) Details: (units (unkno wn) date) unknown) (unknown) (no (unknown) (unknown) Disabled Parking (units (unknown) date) Permit ##1 11/28/21 unknown) [Rx Confirmed 10/19/22] (unknown) (no (unknown) (unknown) Documented By: (units [...] her today. The (unknown) (no (unknown) (unknown) [id number]. (units (unknown) date) Because of her brain [...] effort is made unknown) to edit content, paste worker errors (unknown) (no (unknown) (unknown) surfaces. (units [...] date) consciousness, sequela unknown ) Result panel 277 (unknown) (no (unknown) (unknown) (no value) (units (unk nown) date) unknown) (unknown) (no (unknown) (unknown) [phone] (units (unkn own) date) unknown) (unknown) (no [...] own) date) unknown) (unknown) (no (unknown) (unknown) [place] [address] (unit s (unknown) date) unknown) (unknown) (no [...] (unknown) (unknown) : 1950 (units (unknown) date) Acct:[id number] unknown) (unknown) (no (unknown) (unknown) Dept at [...] (unknown) (unknown) Patient: (units (unkno wn) date) CocoJesica Zuleyka MR#: unknown ) M (unknown) (no [...] effort is made unknown) to edit content, paste worker errors Result panel 278 (unknown) (no (unknown) (unknown) (no value) (units (unk nown) date) unknown) (unknown) (no (unknown) (unknown) [phone] (units (unkn own) date) unknown) (unknown) (no [...] own) date) unknown) (unknown) (no (unknown) (unknown) [place] [address] (unit s (unknown) date) unknown) (unknown) (no (unknown) (unknown) Attending Dr: Nora (units (unknown) date) Lorenza Gardiner.OPaco unknown) (unknown) (no (unknown) (unknown) BP 150/80 [...] (unknown) (unknown) : 1950 (units (unknown) date) Acct:[id number] unknown) (unknown) (no (unknown) (unknown) Dept at [...] (Reviewed 05/25/21 @ unknown) 11:14 by Mandy Arvealo MD) (unknown) (no (unknown) (unknown) Temp 97.9 [...] she went to the (units (unknown) date) [facility] on unknown) friday and they prescribed her a water pill. (unknown) (no (unknown) (unknown) software. Although (units (unknown) date) every effort is made unknown) to edit content, paste worker errors (unknown) (no (unknown) (unknown) that the patient is (unit s (unknown) date) starting to forget unknown) daily tasks and where things are located (unknown) (no (unknown) (unknown) the patient states (units (unknown) date) the edema has not unknown) improved. the patients caregiver states Result panel 279 (unknown) (no (unknown) (unknown) (no value) (units (unk nown) date) unknown) (unknown) (no (unknown) (unknown) [phone] (units (unkn own) date) unknown) (unknown) (no [...] own) date) unknown) (unknown) (no (unknown) (unknown) [place] [address] (unit s (unknown) date) unknown) (unknown) (no (unknown) (unknown) Attending Dr: Nora (units (unknown) date) Lorenza D.O. unknown) (unknown) (no (unknown) (unknown) BP 150/80 [...] (unknown) (unknown) : 1950 (units (unknown) date) Acct:[id number] unknown) (unknown) (no (unknown) (unknown) Dept at [...] she went to the (units (unknown) date) [facility] on unknown) friday and they prescribed her a water pill. (unknown) (no (unknown) (unknown) software. Although (units (unknown) date) every effort is made unknown) to edit content, paste worker errors (unknown) (no (unknown) (unknown) that the patient is (unit s (unknown) date) starting to forget unknown) daily tasks and where things are located (unknown) (no (unknown) (unknown) the patient states (units (unknown) date) the edema has not unknown) improved. the patients caregiver states Result panel 280 (unknown) (no (unknown) (unknown) (no value) (units (unk nown) date) unknown) (unknown) (no (unknown) (unknown) (1) Chronic kidney (units (unknown) date) disease (CKD) stage unknown) G3b/A1, moderately decreased glomerular (unknown) (no (unknown) (unknown) (2) Benign essential (uni ts (unknown) date) HTN: unknown) (unknown) (no (unknown) (unknown) (3) Lower extremity (unit s (unknown) date) edema: unknown) (unknown) (no (unknown) (unknown) (4) Tobacco (units (un known) date) dependence: unknown) (unknown) (no (unknown) (unknown) -daily weights. Let (unit s (unknown) date) us know if she is unknown) gaining weight. (unknown) (no (unknown) (unknown) -echocardiogram (units (unknown) date) pending. unknown) (unknown) (no (unknown) (unknown) -elevate legs when (units (unknown) date) possible. unknown) (unknown) (no (unknown) (unknown) -follow up with her (unit s (unknown) date) PCP in 1 month, as unknown) needed any concerns (unknown) (no (unknown) (unknown) -likely has a CHF (units (unknown) date) component with a unknown) history of high blood pressure, tobacco use. (unknown) (no (unknown) (unknown) -low-sodium diet (units (unknown) date) unknown) (unknown) (no (unknown) (unknown) -must stop smoking. (unit s (unknown) date) unknown) (unknown) (no (unknown) (unknown) -she continues to (units (unknown) date) have increased unknown) swelling since her ER visit on Friday. She is (unknown) (no (unknown) (unknown) -trial of amlodipine (uni ts (unknown) date) for blood pressure. unknown) See instructions (unknown) (no (unknown) (unknown) -will get ER records. (un its (unknown) date) unknown) (unknown) (no (unknown) (unknown) [phone] (units (unkn own) date) unknown) (unknown) (no (unknown) (unknown) 03/30/21 [Rx (units (u nknown) date) Confirmed 01/02/22] unknown) (unknown) (no (unknown) (unknown) 09:47 (units (unkno wn) date) unknown) (unknown) (no (unknown) (unknown) 01/02/22 1009 (units ( unknown) date) unknown) (unknown) (no (unknown) (unknown) 01/02/22 [Rx (units (u nknown) date) Confirmed 01/02/22] unknown) (unknown) (no (unknown) (unknown) 01/02/22 (units [...] own) date) unknown) (unknown) (no (unknown) (unknown) Allergies: Reviewed (unit s (unknown) date) unknown) (unknown) (no (unknown) (unknown) [place] [address] (unit s (unknown) date) unknown) (unknown) (no (unknown) (unknown) Assessment + Plan (units (unknown) date) unknown) (unknown) (no (unknown) (unknown) Attending Dr: Nora (units (unknown) date) Lorenza BaughOPaco unknown) (unknown) (no (unknown) (unknown) BP 150/80 H (units (un known) date) unknown) (unknown) (no (unknown) (unknown) PADRON TREES Allergy (unit s (unknown) date) (Intermediate, Uncoded unknown ) 01/02/22 07:24) (unknown) (no (unknown) (unknown) Benign essential HTN (uni ts (unknown) date) unknown) (unknown) (no (unknown) (unknown) Blood Pressure (units (unknown) date) Location Lt brachial unknown) (unknown) (no (unknown) (unknown) CARDIAC: Regular rate (uni ts (unknown) date) and rhythm. 2+ edema unknown) bilaterally with some stasis changes. (unknown) (no (unknown) (unknown) CHEST: Normal (units ( unknown) date) respiratory effort unknown) (unknown) (no (unknown) (unknown) CVA (cerebral (units ( unknown) date) vascular accident) unknown) (2006) (unknown) (no (unknown) (unknown) Cardiovascular: (units (unknown) date) Negative.? unknown) (unknown) (no (unknown) (unknown) Chief Complaint: leg (uni ts (unknown) date) swelling unknown) (unknown) (no (unknown) (unknown) Chronic kidney (units (unknown) date) disease (CKD) stage unknown) G3b/A1, moderately decreased glomerular (unknown) (no (unknown) (unknown) Confirmed 01/02/22] (unit s (unknown) date) unknown) (unknown) (no (unknown) (unknown) Constitutional: (units (unknown) date) Negative.? unknown) (unknown) (no (unknown) (unknown) : 1950 (units (unknown) date) Acct:[id number] unknown) (unknown) (no (unknown) (unknown) Dept at (units (unkno wn) date) . unknown) (unknown) (no (unknown) (unknown) Disabled Parking (units (unknown) date) Permit ##1 11/28/21 unknown) [Rx Confirmed 01/02/22] (unknown) (no (unknown) (unknown) Documented By: (units (unknown) date) Nora Britt 01/02/22 unknown) 0724 (unknown) (no (unknown) (unknown) EC echo doppler (units (unknown) date) complete Today F17.200 unknown ) - Nicotine dependence, unspecified, (unknown) (no (unknown) (unknown) EYES: PERRL, EOMI and (un its (unknown) date) nonicteric unknown) (unknown) (no (unknown) (unknown) Elevated fasting (units (unknown) date) blood sugar unknown) (unknown) (no (unknown) (unknown) Endocrine: Negative.? (un its (unknown) date) unknown) (unknown) (no (unknown) (unknown) Essential (units (unkn own) date) hypertension unknown) (12/30/14) (unknown) (no (unknown) (unknown) Family Practice (units (unknown) date) Office Visit unknown) (unknown) (no (unknown) (unknown) [facility]) (unknown) (no (unknown) (unknown) GENERAL: Well (units ( unknown) date) developed, well unknown) nourished.? Cooperative with exam.? Patient is in (unknown) (no (unknown) (unknown) Gastrointestinal: (units (unknown) date) Negative.? unknown) (unknown) (no (unknown) (unknown) Genitourinary: (units (unknown) date) Negative.? unknown) (unknown) (no (unknown) (unknown) HEAD: Atraumatic, (units (unknown) date) Normocephalic unknown) (unknown) (no (unknown) (unknown) Health Management [...] date) (2006) unknown) (unknown) (no (unknown) (unknown) I reviewed the (units (unknown) date) patient's Past Medical unknown ) History, Problem List, Medications and (unknown) (no (unknown) (unknown) IVH (intraventricular (un [...] hemorrhage (-2007) unknown) (unknown) (no (unknown) (unknown) LUNGS: Clear all lung (un its (unknown) date) cooney, Bilaterally unknown) (unknown) (no (unknown) (unknown) Last Menstural Cycle (uni ts (unknown) date) + Details unknown) (unknown) (no (unknown) (unknown) Left wrist fracture (unit s (unknown) date) unknown) (unknown) (no (unknown) (unknown) Loc: [facility] (units (unkno wn) date) unknown) (unknown) (no (unknown) (unknown) MUSKULOSKELETAL: (units (unknown) date) Normal gait. unknown) (unknown) (no (unknown) (unknown) Medical History (units (unknown) date) (Updated 01/02/22 @ unknown) 10:04 by Nora Britt DO) (unknown) (no (unknown) (unknown) Medications (units (un known) date) unknown) (unknown) (no (unknown) (unknown) Medications: (units (u nknown) date) Reconciled unknown) (unknown) (no (unknown) (unknown) Medications: (units (u nknown) date) unknown) (unknown) (no (unknown) (unknown) NASAL CONGESTION (units (unknown) date) unknown) (unknown) (no (unknown) (unknown) NECK: Full range of (unit s (unknown) date) motion, unknown) lymphadenopathy absent, supple (unknown) (no (unknown) (unknown) NEURO EXAM: Alert and (un its (unknown) date) oriented x 3.? unknown) (unknown) (no (unknown) (unknown) Neurological: (units ( unknown) date) Negative.? unknown) (unknown) (no (unknown) (unknown) New (units (unkno wn) date) unknown) (unknown) (no (unknown) (unknown) Note (units (unkno wn) date) unknown) (unknown) (no (unknown) (unknown) Note: (units (unkno wn) date) unknown) (unknown) (no (unknown) (unknown) Notes (units (unkno wn) date) unknown) (unknown) (no (unknown) (unknown) OAK TREES Allergy (units (unknown) date) (Intermediate, Uncoded unknown ) 01/02/22 07:24) (unknown) (no (unknown) (unknown) Obesity (units (unkno wn) date) unknown) (unknown) (no (unknown) (unknown) Objective: (units (unk nown) date) unknown) (unknown) (no (unknown) (unknown) Obstructive sleep (units (unknown) date) apnea syndrome unknown) (12/30/14) (unknown) (no (unknown) (unknown) Orders (units (unkno wn) date) unknown) (unknown) (no (unknown) (unknown) Orders: (units (unkno wn) date) unknown) (unknown) (no (unknown) (unknown) Osteoporosis, [...] wn) date) unknown) (unknown) (no (unknown) (unknown) PSYCH: judgement (units (unknown) date) normal, orientation unknown) normal, affect/mood normal and memory (unknown) (no (unknown) (unknown) Patient states that (unit s (unknown) date) she began to have unknown) increased leg swelling last . She (unknown) (no (unknown) (unknown) Patient: (units (unkno wn) date) CocoJesica D MR#: unknown ) M (unknown) (no [...] (unknown) date) unknown) (unknown) (no (unknown) (unknown) Respiratory: (units (u nknown) date) Negative.? unknown) (unknown) (no (unknown) (unknown) Review of Systems: (units (unknown) date) unknown) (unknown) (no (unknown) (unknown) Ribs, multiple (units (unknown) date) fractures unknown) (unknown) (no (unknown) (unknown) SKIN:? No rashes on (unit s (unknown) date) face or arms. unknown) (unknown) (no (unknown) (unknown) Sebaceous cyst (units (unknown) date) unknown) (unknown) (no (unknown) (unknown) Signed By: (units (unk nown) date) <Electronically signed unknown ) by Nora Britt> (unknown) (no (unknown) (unknown) Signed (units (unkno wn) date) unknown) (unknown) (no (unknown) (unknown) Smoking Status: (units (unknown) date) Current some day unknown) smoker (unknown) (no (unknown) (unknown) Social History (units (unknown) date) (including tobacco use unknown ) status). (unknown) (no (unknown) (unknown) Social History (units [...] unknown) date) unknown) (unknown) (no (unknown) (unknown) Subjective: (units (un known) date) unknown) (unknown) (no (unknown) (unknown) Superficial (units [...] heart unknown) failure (unknown) (no (unknown) (unknown) Vital Signs: Reviewed (un its (unknown) date) unknown) (unknown) (no (unknown) (unknown) Vitals (units (unkno wn) date) unknown) (unknown) (no (unknown) (unknown) Voice recognition (units (unknown) date) software was used in unknown) the creation of this note. There may be (unknown) (no (unknown) (unknown) Weight 215 lb (units ( unknown) date) unknown) (unknown) (no (unknown) (unknown) [Rx Confirmed (units ( unknown) date) 01/02/22] unknown) (unknown) (no (unknown) (unknown) a history of high (units (unknown) date) blood pressure and was unknown ) previously on metoprolol. She states (unknown) (no (unknown) (unknown) alcohol intake: never (un its (unknown) date) unknown) (unknown) (no (unknown) (unknown) amitriptyline 25 mg (units (unknown) date) tablet See Rx unknown) Instructions .Route .COMPLEX #90 tabs 06/04/21 (unknown) (no (unknown) (unknown) amlodipine (Norvasc) (uni ts (unknown) date) 2.5 mg PO DAILY 90 unknown) tabs 3RF blood pressure (unknown) (no (unknown) (unknown) amlodipine 2.5 mg (units (unknown) date) tablet (Norvasc) 2.5 unknown) mg PO DAILY blood pressure #90 tabs (unknown) (no (unknown) (unknown) angioedema (units (unk nown) date) unknown) (unknown) (no (unknown) (unknown) aspirin Allergy (units (unknown) date) (Severe, Verified unknown) 01/02/22 07:24) (unknown) (no (unknown) (unknown) atinine ratio less (units (unknown) date) than 30 mg/g: unknown) (unknown) (no (unknown) (unknown) b.i.d.. Add potassium (un its (unknown) date) daily while on Lasix. unknown) (unknown) (no (unknown) (unknown) cortisone [CORTISONE] (un its (unknown) date) Allergy (Mild, unknown) Verified 01/02/22 07:24) (unknown) (no (unknown) (unknown) creatinine ratio less (un its (unknown) date) than 30 mg/g unknown) (unknown) (no (unknown) (unknown) extremities, chest (units (unknown) date) x-ray. They started on unknown ) 20 mg of Lasix b.i.d. and discharged (unknown) (no (unknown) (unknown) filtration rate (GFR) (uni ts (unknown) date) between 30-44 unknown) mL/min/1.73 square meter and albuminuria cre (unknown) (no (unknown) (unknown) filtration rate (GFR) (un its (unknown) date) between 30-44 unknown) mL/min/1.73 square meter and albuminuria (unknown) (no (unknown) (unknown) furosemide (Lasix) 40 (un its (unknown) date) mg PO BID 60 tabs 1RF unknown) edema (unknown) (no (unknown) (unknown) furosemide 40 mg (units (unknown) date) tablet (Lasix) 40 mg unknown) PO BID edema #60 tabs 01/02/22 [Rx (unknown) (no (unknown) (unknown) has not noticed (units (unknown) date) significant unknown) improvement in the swelling with the Lasix. She has (unknown) (no (unknown) (unknown) have occurred. If (units (unknown) date) there are any unknown) questions, please contact the Medical Records (unknown) (no (unknown) (unknown) her. She states that (uni ts (unknown) date) since being home the unknown) leg swelling has gotten worse. She (unknown) (no (unknown) (unknown) hives (units (unkno [...] Verified 01/02/22 07:24) (unknown) (no (unknown) (unknown) no apparent distress. (un its (unknown) date) unknown) (unknown) (no (unknown) (unknown) normal (units (unkno wn) date) unknown) (unknown) (no (unknown) (unknown) occurred due to the (unit s (unknown) date) inherent limitations unknown) of voice recognition software. Please (unknown) (no (unknown) (unknown) potassium chloride 20 (un its (unknown) date) mEq tablet,extended unknown) release(part/cryst) 20 meq PO DAILY (unknown) (no (unknown) (unknown) potassium chloride ER (un its (unknown) date) 20 mEq PO DAILY 30 unknown) tabs 1RF while on lasix (unknown) (no (unknown) (unknown) read the note (units ( unknown) date) carefully and unknown) recognize, using context, where these substitutions (unknown) (no (unknown) (unknown) rivaroxaban 20 mg (units (unknown) date) tablet (Xarelto) 20 mg unknown ) PO QPM #90 tabs 11/28/21 [Rx Confirmed (unknown) (no (unknown) (unknown) she went to the (units (unknown) date) [facility] on unknown) friday and they prescribed her a water pill. (unknown) (no (unknown) (unknown) software. Although (units (unknown) date) every effort is made unknown) to edit content, paste worker errors (unknown) (no (unknown) (unknown) some increased (units (unknown) date) dyspnea on exertion unknown) but no acute shortness of breath. (unknown) (no (unknown) (unknown) that she continues to (un its (unknown) date) smoke daily. She unknown) denies any chest pains. She is having (unknown) (no (unknown) (unknown) that the patient is (unit s (unknown) date) starting to forget unknown) daily tasks and where things are located (unknown) (no (unknown) (unknown) the patient states (units (unknown) date) the edema has not unknown) improved. the patients caregiver states (unknown) (no (unknown) (unknown) typographical errors (uni ts (unknown) date) as a result. unknown) (unknown) (no (unknown) (unknown) uncomplicated, I10 - (uni ts (unknown) date) Essential (primary) unknown) hypertension, R60.0 - Localized edema (unknown) (no (unknown) (unknown) up around 15 lb from (uni ts (unknown) date) her last visit to our unknown) clinic. Increase Lasix to 40 mg (unknown) (no (unknown) (unknown) went to the ER on (units (unknown) date) Friday. They did blood unknown ) work, Doppler of her lower (unknown) (no (unknown) (unknown) while on lasix #30 (units (unknown) date) tabs 01/02/22 [Rx unknown) Confirmed 01/02/22] Result panel 281 (unknown) (no date) (unknown) (unknown) (no value) (units (un known) unknown) (unknown) (no date) (unknown) (unknown) 01/24/22 (units (unkn own) unknown) (unknown) (no date) (unknown) (unknown) [address] (units (unk nown) Street unknown) (unknown) (no date) (unknown) (unknown) Accession (units (unk nown) Number: unknown) [id number] (unknown) (no date) (unknown) (unknown) Age/Sex: 71 / (units (unknown) F Date of unknown) Service: (unknown) (no date) (unknown) (unknown) HANNY Nixon (units (unknown) [address] unknown) (unknown) (no date) (unknown) (unknown) Approved by: (units ( unknown) stacey Cardoza M.D. on 01/24/2022 at 10:38 (unknown) (no date) (unknown) (unknown) Bones and (units (unk nown) chest wall: No unknown) suspicious bony lesions. Overlying soft tissues (unknown) (no date) (unknown) (unknown) [facility], [facility]R CHEST 1V, 05/06/2019, 13:12. (unknown) (no date) (unknown) (unknown) : (units (unkn own) 1950 unknown) Acct:[id number] (unknown) (no date) (unknown) (unknown) Dictated by: (units ( unknown) Cris Schneider, unknown) Erick on 01/24/2022 at 10:37 (unknown) (no date) (unknown) (unknown) FINDINGS: (units (unk nown) unknown) (unknown) (no date) (unknown) (unknown) IMPRESSION: (units (u nknown) Pulmonary unknown) vascular engorgement and cardiomegaly. No acute (unknown) (no date) (unknown) (unknown) INDICATIONS: (units ( unknown) chest pain unknown) (unknown) (no date) (unknown) (unknown) [facility] (unknown) (no date) (unknown) (unknown) Loc: ED (units (unkn own) unknown) (unknown) (no date) (unknown) (unknown) Lungs and (units (unk nown) pleura: Lungs unknown) are clear. No pleural effusions or pneumothorax. (unknown) (no date) (unknown) (unknown) [id number] (units (un known) unknown) (unknown) (no date) (unknown) (unknown) Mediastinum: (units ( unknown) The heart is unknown) enlarged and there is pulmonary vascular (unknown) (no date) (unknown) (unknown) Ordering (units (unkn own) Provider: unknown) Chapo Dhaliwal D.O. (unknown) (no date) (unknown) (unknown) PROCEDURE: XR (units (unknown) CHEST 1V unknown) (unknown) (no date) (unknown) (unknown) Patient: (units (unkn own) Jesica Speulveda unknown) D MR#: (unknown) (no date) (unknown) (unknown) Procedure: XR (units (unknown) chest 1V unknown) (unknown) (no date) (unknown) (unknown) Signed (units (unkn own) unknown) (unknown) (no date) (unknown) (unknown) Surgical (units (unkn own) changes and unknown) devices: None. (unknown) (no date) (unknown) (unknown) TECHNIQUE: One (units (unknown) view of the unknown) chest was acquired. (unknown) (no date) (unknown) (unknown) XRay Report (units (u nknown) unknown) (unknown) (no date) (unknown) (unknown) appear (units (unkn own) unknown) (unknown) (no date) (unknown) (unknown) engorgement. (units ( unknown) unknown) (unknown) (no date) (unknown) (unknown) findings. (units (unk nown) unknown) (unknown) (no date) (unknown) (unknown) pulmonary (units (unk nown) unknown) (unknown) (no date) (unknown) (unknown) unremarkable. (units (unknown) unknown) Result panel 282 (unknown) (no (unknown) (unknown) (no value) (units (unk nown) date) unknown) (unknown) (no (unknown) (unknown) (DME) Disabled (units (unknown) date) Parking Permit unknown) (unknown) (no (unknown) (unknown) .COMPLEX #30 tabs (units (unknown) date) unknown) (unknown) (no (unknown) (unknown) .COMPLEX #60 tabs (units (unknown) date) unknown) (unknown) (no (unknown) (unknown) .COMPLEX #90 tabs (units (unknown) date) unknown) (unknown) (no (unknown) (unknown) [id number] (units (unkn own) date) unknown) (unknown) (no (unknown) (unknown) 12 point review of (units (unknown) date) systems is negative unknown) except for those stated above (unknown) (no (unknown) (unknown) 01/24/22 09:59 (units (unknown) date) unknown) (unknown) (no (unknown) (unknown) 2.5 mg PO DAILY Qty: (uni ts (unknown) date) 90 3RF unknown) (unknown) (no (unknown) (unknown) 20 meq PO DAILY Qty: (uni ts (unknown) date) 30 1RF unknown) (unknown) (no (unknown) (unknown) 20 mg PO QPM Qty: 90 (uni ts (unknown) date) 3RF unknown) (unknown) (no (unknown) (unknown) 40 mg PO BID Qty: 60 (uni ts (unknown) date) 1RF unknown) (unknown) (no (unknown) (unknown) 71-year-old female (units (unknown) date) smoker with history of unknown ) hypertension, chronic kidney disease, (unknown) (no (unknown) (unknown) Age/Sex: 71 / F (units (unknown) date) unknown) (unknown) (no (unknown) (unknown) Allergies (units (unkn own) date) unknown) (unknown) (no (unknown) (unknown) Allergy/AdvReac Type (uni ts (unknown) date) Severity Reaction unknown) Status Date / Time (unknown) (no (unknown) (unknown) BACK: Nontender (units (unknown) date) without deformity or unknown) crepitance. No flank tenderness. (unknown) (no (unknown) (unknown) PADRON TREES Allergy (unit s (unknown) date) Intermediate Uncoded unknown) 01/02/22 07:24 (unknown) (no (unknown) (unknown) Benign essential HTN (uni ts (unknown) date) unknown) (unknown) (no (unknown) (unknown) CARDIOVASCULAR: (units (unknown) date) Regular rate and unknown) rhythm without murmurs, gallops, or rubs. (unknown) (no (unknown) (unknown) CARDIOVASCULAR: See (unit s (unknown) date) HPI unknown) (unknown) (no (unknown) (unknown) CONGESTION (units (unk nown) date) unknown) (unknown) (no (unknown) (unknown) CVA (cerebral (units ( unknown) date) vascular accident) unknown) (2006) (unknown) (no (unknown) (unknown) Chronic kidney (units (unknown) date) disease (CKD) stage unknown) G3b/A1, moderately decreased glomerular (unknown) (no (unknown) (unknown) Complete Blood Count (uni ts (unknown) date) AUTO DIFF Stat unknown) (unknown) (no (unknown) (unknown) Comprehensive (units ( unknown) date) Metabolic Panel Stat unknown) (unknown) (no (unknown) (unknown) Course (units (unkno wn) date) unknown) (unknown) (no (unknown) (unknown) : 1950 (units (unknown) date) Acct:[id number] unknown) (unknown) (no (unknown) (unknown) Date of Service: (units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 (units (unknown) date) unknown) (unknown) (no (unknown) (unknown) Visit Report Forms: (unit s (unknown) date) Patient Portal/API unknown) (unknown) (no (unknown) (unknown) Vital Signs (units (un known) date) unknown) (unknown) (no (unknown) (unknown) WBC (4.5-11.0) (units (unknown) date) X103/uL unknown) (unknown) (no (unknown) (unknown) WBC 7.6 (4.5-11.0) (units (unknown) date) X103/uL unknown) (unknown) (no (unknown) (unknown) XRay Report (units (un known) date) unknown) (unknown) (no (unknown) (unknown) Xarelto 20 mg tablet (uni ts (unknown) date) unknown) (unknown) (no (unknown) (unknown) [ ] New medication (units (unknown) date) prescriptions sent to unknown) your pharmacy: [ ] (unknown) (no (unknown) (unknown) [ ] New medication (units (unknown) date) written as a paper unknown) prescription (unknown) (no (unknown) (unknown) [ ] No new (units (unk nown) date) medications given unknown) (unknown) (no (unknown) (unknown) [71-year-old female (units (unknown) date) smoker with history of unknown ) hypertension, chronic kidney disease, (unknown) (no (unknown) (unknown) [Embedded Image Not (unit s (unknown) date) Available] unknown) (unknown) (no (unknown) (unknown) alcohol intake: never (un its (unknown) date) unknown) (unknown) (no (unknown) (unknown) amitriptyline 25 mg (unit s (unknown) date) tablet See Rx unknown) Instructions .Route 06/04/21 (unknown) (no (unknown) (unknown) amitriptyline 25 mg (unit s (unknown) date) tablet unknown) (unknown) (no (unknown) (unknown) amlodipine 2.5 mg (units (unknown) date) tablet (Norvasc) 2.5 unknown) mg PO DAILY blood pressure #90 01/02/22 (unknown) (no (unknown) (unknown) amlodipine [Norvasc] (uni ts (unknown) date) 2.5 mg tablet unknown) (unknown) (no (unknown) (unknown) and then resume (units (unknown) date) normal dosing, unknown) otherwise Please continue to take your regular (unknown) (no (unknown) (unknown) appear (units (unkno wn) date) unknown) (unknown) (no (unknown) (unknown) appointment. Let them (uni ts (unknown) date) know you were seen in unknown) the Emergency Department and that we (unknown) (no (unknown) (unknown) ask that you be seen (uni ts (unknown) date) in follow up. We will unknown) electronically transmit a record of (unknown) (no (unknown) (unknown) aspirin Allergy (units (unknown) date) Severe internal unknown) Verified 01/24/22 10:23 (unknown) (no (unknown) (unknown) bleeding (units (unkno wn) date) unknown) (unknown) (no (unknown) (unknown) change in her (units ( unknown) date) medications or missed unknown) doses. She denies any dietary (unknown) (no (unknown) (unknown) complaints (units (unk nown) date) unknown) (unknown) (no (unknown) (unknown) concerning symptoms, (uni ts (unknown) date) such as [fever greater unknown ) than 101 F, shaking chills, (unknown) (no (unknown) (unknown) constipation, melena. (un its (unknown) date) unknown) (unknown) (no (unknown) (unknown) cortisone [CORTISONE] (un its (unknown) date) Allergy Mild hives unknown) Verified 01/24/22 10:23 (unknown) (no (unknown) (unknown) creatinine ratio less (un its (unknown) date) than 30 mg/g unknown) (unknown) (no (unknown) (unknown) diagnosis and plan (units (unknown) date) unknown) (unknown) (no (unknown) (unknown) difficult time lying (uni ts (unknown) date) flat. She is not dizzy unknown ) or lightheaded. She denies any (unknown) (no (unknown) (unknown) disease, infection, (unit s (unknown) date) DVT versus other] unknown) (unknown) (no (unknown) (unknown) dizziness. (units (unk nown) date) unknown) (unknown) (no (unknown) (unknown) extremities. She (units (unknown) date) states that she is unknown) been getting increased pain in her feet (unknown) (no (unknown) (unknown) extremities.] (units ( unknown) date) unknown) (unknown) (no (unknown) (unknown) filtration rate (GFR) (un its (unknown) date) between 30-44 unknown) mL/min/1.73 square meter and albuminuria (unknown) (no (unknown) (unknown) findings. (units (unkn own) date) unknown) (unknown) (no (unknown) (unknown) furosemide 40 mg (units (unknown) date) tablet (Lasix) 40 mg unknown) PO BID edema #60 tabs 01/02/22 (unknown) (no (unknown) (unknown) furosemide [Lasix] 40 (un its (unknown) date) mg tablet unknown) (unknown) (no (unknown) (unknown) headache or blurred (unit s (unknown) date) vision. She has no unknown) reported weight gain and denies any (unknown) (no (unknown) (unknown) household members: (units (unknown) date) children unknown) (unknown) (no (unknown) (unknown) hydroxyzine HCl 10 mg (un its (unknown) date) tablet See Rx unknown) Instructions .Route 03/30/21 (unknown) (no (unknown) (unknown) hydroxyzine HCl 10 mg (un its (unknown) date) tablet unknown) (unknown) (no (unknown) (unknown) icterus. No injection (un its (unknown) date) or drainage. unknown) (unknown) (no (unknown) (unknown) indiscretions. She is (un its (unknown) date) had no abdominal pain, unknown ) constipation, diarrhea or urinary (unknown) (no (unknown) (unknown) isosorbide (units (unk nown) date) mononitrate 60 mg 60 unknown) mg PO DAILY 01/24/22 01/24/22 (unknown) (no (unknown) (unknown) isosorbide (units (unk nown) date) mononitrate 60 mg unknown) tablet extended release 24 hr (unknown) (no (unknown) (unknown) lisinopril AdvReac (units (unknown) date) Severe angioedema unknown) Verified 01/24/22 10:23 (unknown) (no (unknown) (unknown) medications as (units (unknown) date) directed. unknown) (unknown) (no (unknown) (unknown) mild distress. (units (unknown) date) unknown) (unknown) (no (unknown) (unknown) minoxidil 2.5 mg (units (unknown) date) tablet See Rx unknown) Instructions .Route 10/29/21 (unknown) (no (unknown) (unknown) minoxidil 2.5 mg (units (unknown) date) tablet unknown) (unknown) (no (unknown) (unknown) mold [MOLD] Allergy (unit s (unknown) date) Intermediate Verified unknown) 01/24/22 10:23 (unknown) (no (unknown) (unknown) must administer with (uni ts (unknown) date) a meal/food unknown) (unknown) (no (unknown) (unknown) over the past few (units (unknown) date) days. She denies any unknown) fever or chills. She denies any (unknown) (no (unknown) (unknown) peripheral edema (units (unknown) date) presents with multiple unknown ) months of swelling in her lower (unknown) (no (unknown) (unknown) phase, perhaps faint (uni ts (unknown) date) crackles in bilateral unknown) bases though mild at worst (unknown) (no (unknown) (unknown) potassium chloride 20 (un its (unknown) date) mEq 20 meq PO DAILY unknown) while on lasix #30 01/02/22 (unknown) (no (unknown) (unknown) potassium chloride 20 (un its (unknown) date) mEq tablet,ER unknown) particles/crystals (unknown) (no (unknown) (unknown) pulmonary (units (unkn own) date) unknown) (unknown) (no (unknown) (unknown) respiratory distress, (un its (unknown) date) ambulatory through unknown) department, no hypoxemia (unknown) (no (unknown) (unknown) rivaroxaban 20 mg (units (unknown) date) tablet (Xarelto) 20 mg unknown ) PO QPM #90 tabs 11/28/21 (unknown) (no (unknown) (unknown) seizures, (units (unkn own) date) incoordination. unknown) (unknown) (no (unknown) (unknown) significant shortness (un its (unknown) date) of breath but does unknown) state that she chronically has a (unknown) (no (unknown) (unknown) tablet,extended (units (unknown) date) release 24 hr unknown) (unknown) (no (unknown) (unknown) tablet,extended (units (unknown) date) release(part/cryst) unknown) tabs (unknown) (no (unknown) (unknown) tabs (units (unkno wn) date) unknown) (unknown) (no (unknown) (unknown) take 1 tablet by (units (unknown) date) mouth at bedtime unknown) (unknown) (no (unknown) (unknown) take 1 tablet by (units (unknown) date) mouth daily unknown) (unknown) (no (unknown) (unknown) take 1 tablet by (units (unknown) date) mouth three times a unknown) day if needed for itching (unknown) (no (unknown) (unknown) take 1 tablet by (units (unknown) date) mouth twice a day unknown) (unknown) (no (unknown) (unknown) tobacco type: (units ( unknown) date) cigarettes unknown) (unknown) (no (unknown) (unknown) today's note if your (uni ts (unknown) date) PCP is in our system unknown) (unknown) (no (unknown) (unknown) tonsillar hypertrophy (un its (unknown) date) or exudate. Airway unknown) patent. (unknown) (no (unknown) (unknown) unremarkable.? (units (unknown) date) unknown) (unknown) (no (unknown) (unknown) verbalization of (units (unknown) date) understanding unknown) (unknown) (no (unknown) (unknown) worsening pain, (units (unknown) date) persistent vomiting or unknown ) other bothersome symptoms] Result panel 288 (unknown) (no (unknown) (unknown) (no value) (units (unk nown) date) unknown) (unknown) (no (unknown) (unknown) [id number] (units (unkn own) date) unknown) (unknown) (no (unknown) (unknown) 01/25/22 (units (unkno wn) date) unknown) (unknown) (no (unknown) (unknown) 71 year old female (units (unknown) date) presents to clinic for unknown ) ER follow up. (unknown) (no (unknown) (unknown) Age/Sex: 71 / F Date (uni ts (unknown) date) of Service: unknown) (unknown) (no (unknown) (unknown) Allergies (units (unkn own) date) unknown) (unknown) (no (unknown) (unknown) [place] [address] (unit s (unknown) date) unknown) (unknown) (no (unknown) (unknown) Attending Dr: Nora (units (unknown) date) Lorenza D.OPaco unknown) (unknown) (no (unknown) (unknown) P[place] TREES Allergy (unit s (unknown) date) (Intermediate, Uncoded unknown ) 01/25/22 08:04) (unknown) (no (unknown) (unknown) Benign essential HTN (uni ts (unknown) date) unknown) (unknown) (no (unknown) (unknown) CVA (cerebral (units ( unknown) date) vascular accident) unknown) (2007) (unknown) (no (unknown) (unknown) Chronic kidney (units (unknown) date) disease (CKD) stage unknown) G3b/A1, moderately decreased glomerular (unknown) (no (unknown) (unknown) : 1950 (units (unknown) date) Acct:[id number] unknown) (unknown) (no (unknown) (unknown) Dept at (units (unkno wn) date) . unknown) (unknown) (no (unknown) (unknown) Documented By: (units (unknown) date) Nora Britt 01/25/22 unknown) 0803 (unknown) (no (unknown) (unknown) Draft (units (unkno [...] (unknown) Medical History (units (unknown) date) (Reviewed 01/24/22 @ unknown) 10:06 by Chapo Dhaliwal DO) (unknown) (no (unknown) (unknown) NASAL CONGESTION (units (unknown) date) unknown) (unknown) (no (unknown) (unknown) OAK TREES Allergy (units (unknown) date) (Intermediate, Uncoded unknown ) 01/25/22 08:04) (unknown) (no (unknown) (unknown) Obesity (units (unkno [...] (unknown) Surgical History (units (unknown) date) (Reviewed 01/24/22 @ unknown) 10:06 by Chapo Dhaliwal DO) (unknown) (no (unknown) (unknown) This note may [...] unknown) (unknown) (no (unknown) (unknown) Visit Reasons: ER f/u (un its (unknown) date) *lon unknown) (unknown) (no (unknown) (unknown) alcohol intake: never (un its (unknown) date) unknown) (unknown) (no (unknown) (unknown) angioedema (units (unk nown) date) unknown) (unknown) (no (unknown) (unknown) aspirin Allergy (units (unknown) date) (Severe, Verified unknown) 01/25/22 08:04) (unknown) (no (unknown) (unknown) cortisone [CORTISONE] (un its (unknown) date) Allergy (Mild, unknown) Verified 01/25/22 08:04) (unknown) (no (unknown) (unknown) creatinine ratio less [...] (units (unknown) date) Reaction (Severe, unknown) Verified 01/25/22 08:04) (unknown) (no (unknown) (unknown) may occur. Occasional (un its (unknown) date) wrong-word or unknown) 'sound-alike' substitutions may have (unknown) (no (unknown) (unknown) mold [MOLD] Allergy (unit s (unknown) date) (Intermediate, unknown) Verified 01/25/22 08:04) (unknown) (no (unknown) (unknown) occurred due to the (unit s (unknown) date) inherent limitations unknown) of voice recognition software. Please (unknown) (no (unknown) (unknown) read the note (units ( unknown) date) carefully and unknown) recognize, using context, where these substitutions (unknown) (no (unknown) (unknown) software. Although (units (unknown) date) every effort is made unknown) to edit content, paste worker errors Result panel 289 (unknown) (no (unknown) (unknown) (no value) (units (unk nown) date) unknown) (unknown) (no (unknown) (unknown) [id number] (units (unkn own) date) unknown) (unknown) (no (unknown) (unknown) 08:14 (units (unkno wn) date) unknown) (unknown) (no (unknown) (unknown) 01/25/22 (units (unkno wn) date) unknown) (unknown) (no (unknown) (unknown) 71 year old female (units (unknown) date) presents to clinic for unknown ) ER follow up. (unknown) (no (unknown) (unknown) Age/Sex: 71 / F Date (uni ts (unknown) date) of Service: unknown) (unknown) (no (unknown) (unknown) Allergies (units (unkn own) date) unknown) (unknown) (no (unknown) (unknown) [place] [address] (unit s (unknown) date) unknown) (unknown) (no (unknown) (unknown) Attending Dr: Nora (units (unknown) date) Lorenza D.OPaco unknown) (unknown) (no (unknown) (unknown) BP 152/98 H (units (un known) date) unknown) (unknown) (no (unknown) (unknown) PADRON TREES Allergy (unit s (unknown) date) (Intermediate, Uncoded unknown ) 01/25/22 08:04) (unknown) (no (unknown) (unknown) Benign essential HTN (uni ts (unknown) date) unknown) (unknown) (no (unknown) (unknown) Blood Pressure (units (unknown) date) Location Lt brachial unknown) (unknown) (no (unknown) (unknown) CVA (cerebral (units ( unknown) date) vascular accident) unknown) (2006) (unknown) (no (unknown) (unknown) Chronic kidney (units (unknown) date) disease (CKD) stage unknown) G3b/A1, moderately decreased glomerular (unknown) (no (unknown) (unknown) : 1950 (units (unknown) date) Acct:[id number] unknown) (unknown) (no (unknown) (unknown) Dept at (units (unkno wn) date) . unknown) (unknown) (no (unknown) (unknown) Documented By: (units (unknown) date) Nora Britt 01/25/22 unknown) 0803 (unknown) (no (unknown) (unknown) Draft (units (unkno [...] (unknown) Medical History (units (unknown) date) (Reviewed 01/24/22 @ unknown) 10:06 by Chapo Dhaliwal DO) (unknown) (no (unknown) (unknown) NASAL CONGESTION (units (unknown) date) unknown) (unknown) (no (unknown) (unknown) OAK TREES Allergy (units (unknown) date) (Intermediate, Uncoded unknown ) 01/25/22 08:04) (unknown) (no (unknown) (unknown) Obesity (units (unkno [...] date) unknown) (unknown) (no (unknown) (unknown) Pulse 66 (units (unkno wn) date) unknown) (unknown) (no (unknown) (unknown) Pulse Oximetry (%) 98 (un its (unknown) date) unknown) (unknown) (no [...] (unknown) Surgical History (units (unknown) date) (Reviewed 01/24/22 @ unknown) 10:06 by Chapo Dhaliwal DO) (unknown) (no (unknown) (unknown) Temp 97.5 F L (units ( unknown) date) unknown) (unknown) (no (unknown) (unknown) Temp [...] unknown) (unknown) (no (unknown) (unknown) Visit Reasons: ER f/u (un its (unknown) date) *lon unknown) (unknown) (no (unknown) (unknown) Vitals (units (unkno wn) date) unknown) (unknown) (no (unknown) (unknown) Weight 208 lb (units ( unknown) date) unknown) (unknown) (no (unknown) (unknown) alcohol intake: never (un its (unknown) date) unknown) (unknown) (no (unknown) (unknown) angioedema (units (unk nown) date) unknown) (unknown) (no (unknown) (unknown) aspirin Allergy (units (unknown) date) (Severe, Verified unknown) 01/25/22 08:04) (unknown) (no (unknown) (unknown) cortisone [CORTISONE] (un its (unknown) date) Allergy (Mild, unknown) Verified 01/25/22 08:04) (unknown) (no (unknown) (unknown) creatinine ratio less [...] (units (unknown) date) Reaction (Severe, unknown) Verified 01/25/22 08:04) (unknown) (no (unknown) (unknown) may occur. Occasional (un its (unknown) date) wrong-word or unknown) 'sound-alike' substitutions may have (unknown) (no (unknown) (unknown) mold [MOLD] Allergy (unit s (unknown) date) (Intermediate, unknown) Verified 01/25/22 08:04) (unknown) (no (unknown) (unknown) occurred due to the (unit s (unknown) date) inherent limitations unknown) of voice recognition software. Please (unknown) (no (unknown) (unknown) read the note (units ( unknown) date) carefully and unknown) recognize, using context, where these substitutions (unknown) (no (unknown) (unknown) software. Although (units (unknown) date) every effort is made unknown) to edit content, paste worker errors Result panel 290 (unknown) (no (unknown) (unknown) (no value) (units (unk nown) date) unknown) (unknown) (no (unknown) (unknown) [id number] (units (unkn own) date) unknown) (unknown) (no (unknown) (unknown) 03/30/21 [Rx (units (u nknown) date) Confirmed 01/25/22] unknown) (unknown) (no (unknown) (unknown) 08:14 (units (unkno wn) date) unknown) (unknown) (no (unknown) (unknown) 1. Little interest or (un its (unknown) date) pleasure in doing unknown) things: nearly every day (unknown) (no (unknown) (unknown) 01/24/22 [History (units (unknown) date) Confirmed 01/25/22] unknown) (unknown) (no (unknown) (unknown) 01/25/22 (units (unkno wn) date) unknown) (unknown) (no (unknown) (unknown) 01/25/22] (units (unkn own) date) unknown) (unknown) (no (unknown) (unknown) 2. Feeling down, (units (unknown) date) depressed, or unknown) hopeless: more than half the days (unknown) (no (unknown) (unknown) 3. Trouble falling or (un its (unknown) date) staying asleep, or unknown) sleeping too much: more than half the (unknown) (no (unknown) (unknown) 4. Feeling tired or (unit s (unknown) date) having little energy: unknown) nearly every day (unknown) (no (unknown) (unknown) 5. Poor appetite or (unit s (unknown) date) overeating: several unknown) days (unknown) (no (unknown) (unknown) 6. Feeling bad about (uni ts (unknown) date) yourself - or that you unknown ) are a failure or have let yourself (unknown) (no (unknown) (unknown) 7. Trouble (units (unk nown) date) concentrating on unknown) things, such as reading the newspaper or watching (unknown) (no (unknown) (unknown) 71 year old female (units (unknown) date) presents to clinic for unknown ) ER follow up. (unknown) (no (unknown) (unknown) 8. Moving or speaking (un its (unknown) date) so slowly that other unknown) people could have noticed? - Or the (unknown) (no (unknown) (unknown) 9. Thoughts that you (uni ts (unknown) date) would be better off unknown) or of hurting yourself in some (unknown) (no (unknown) (unknown) Age/Sex: 71 / F Date (uni ts (unknown) date) of Service: unknown) (unknown) (no (unknown) (unknown) Allergies (units (unkn own) date) unknown) (unknown) (no (unknown) (unknown) [place], [place] [address] (unit s (unknown) date) unknown) (unknown) (no (unknown) (unknown) Attending Dr: Nora (units (unknown) date) Lorenza Hoffman unknown) (unknown) (no (unknown) (unknown) BP 152/98 H (units (un known) date) unknown) (unknown) (no (unknown) (unknown) PADRON TREES Allergy (unit s (unknown) date) (Intermediate, Uncoded unknown ) 01/25/22 08:04) (unknown) (no (unknown) (unknown) Benign essential HTN (uni ts (unknown) date) unknown) (unknown) (no (unknown) (unknown) Blood Pressure (units (unknown) date) Location Lt brachial unknown) (unknown) (no (unknown) (unknown) CVA (cerebral (units ( unknown) date) vascular accident) unknown) (2006) (unknown) (no (unknown) (unknown) Chronic kidney (units (unknown) date) disease (CKD) stage unknown) G3b/A1, moderately decreased glomerular (unknown) (no (unknown) (unknown) Confirmed 01/25/22] (unit s (unknown) date) unknown) (unknown) (no (unknown) (unknown) : 1950 (units (unknown) date) Acct:[id number] unknown) (unknown) (no (unknown) (unknown) Depression/Bipolar (units (unknown) date) (159/160/161/169/177) unknown) (unknown) (no (unknown) (unknown) Dept at (units (unkno wn) date) . unknown) (unknown) (no (unknown) (unknown) Disabled Parking (units (unknown) date) Permit ##1 11/28/21 unknown) [Rx Confirmed 01/25/22] (unknown) (no (unknown) (unknown) Documented By: (units (unknown) date) Nora Britt 01/25/22 unknown) 0803 (unknown) (no (unknown) (unknown) Draft (units (unkno [...] hemorrhage) (2006) unknown) (unknown) (no (unknown) (unknown) If score is 2 or (units (unknown) date) greater, continue unknown) (unknown) (no (unknown) (unknown) If you checked off (units (unknown) date) any problems, how unknown) difficult have these problems made it for (unknown) (no (unknown) (unknown) Intake Note: (units [...] (unknown) Medical History (units (unknown) date) (Reviewed 01/24/22 @ unknown) 10:06 by Chapo Dhaliwal DO) (unknown) (no (unknown) (unknown) Medications (units (un known) date) unknown) (unknown) (no (unknown) (unknown) NASAL CONGESTION (units (unknown) date) unknown) (unknown) (no (unknown) (unknown) OAK TREES Allergy (units (unknown) date) (Intermediate, Uncoded unknown ) 01/25/22 08:04) (unknown) (no (unknown) (unknown) Obesity (units (unkno [...] date) hyperlipidemia unknown) (unknown) (no (unknown) (unknown) Over the last 2 (units (unknown) date) weeks, how often have unknown) you been bothered by any of the following (unknown) (no (unknown) (unknown) Oxygen Delivery (units (unknown) date) Method room air unknown) (unknown) (no (unknown) (unknown) PFSH (units (unkno wn) date) unknown) (unknown) (no (unknown) (unknown) PHQ-2 (units (unkno wn) date) unknown) (unknown) (no (unknown) (unknown) PHQ-2/PHQ-9 (units (un known) date) unknown) (unknown) (no (unknown) (unknown) Patient: (units (unkno wn) date) SepulvedaJesica Zuleyka MR#: unknown ) M (unknown) (no [...] date) unknown) (unknown) (no (unknown) (unknown) Pulse 66 (units (unkno wn) date) unknown) (unknown) (no (unknown) (unknown) Pulse Oximetry (%) 98 (un its (unknown) date) unknown) (unknown) (no (unknown) (unknown) Pulse Source Monitor (uni ts (unknown) date) unknown) (unknown) (no (unknown) (unknown) Quality Reporting (units (unknown) date) unknown) (unknown) (no (unknown) (unknown) Questionnaires (units (unknown) date) unknown) (unknown) (no (unknown) [...] (unknown) date) unknown) (unknown) (no (unknown) (unknown) Source: Developed by (uni ts (unknown) date) Drs. Lencho Andrade unknown) Kasandra Fuentes, Darrin Elliott (unknown) (no (unknown) (unknown) Status post (units [...] (unknown) Surgical History (units (unknown) date) (Reviewed 01/24/22 @ unknown) 10:06 by Chapo Dhaliwal DO) (unknown) (no (unknown) (unknown) Temp 97.5 F L (units ( unknown) date) unknown) (unknown) (no (unknown) (unknown) Temp Source Temporal (uni ts (unknown) date) Artery Scan unknown) (unknown) (no (unknown) (unknown) This note may have (units (unknown) date) been all or partially unknown) generated using voice recognition (unknown) (no (unknown) (unknown) Tobacco + Substance (unit s (unknown) date) Use unknown) (unknown) (no (unknown) (unknown) Tobacco Status (units (unknown) date) unknown) (unknown) (no (unknown) (unknown) Total score: 18 (units (unknown) date) unknown) (unknown) (no (unknown) (unknown) Total score: 5 (units (unknown) date) unknown) (unknown) (no (unknown) (unknown) Traumatic brain (units (unknown) date) injury (2011) unknown) (unknown) (no (unknown) (unknown) UTI (urinary tract (units (unknown) date) infection) unknown) (unknown) (no (unknown) (unknown) Visit Reasons: ER f/u (un its (unknown) date) *lon unknown) (unknown) (no (unknown) (unknown) Vitals (units (unkno wn) date) unknown) (unknown) (no (unknown) (unknown) Weight 208 lb (units ( unknown) date) unknown) (unknown) (no (unknown) (unknown) [Rx Confirmed (units ( unknown) date) 01/25/22] unknown) (unknown) (no (unknown) (unknown) alcohol intake: never (un its (unknown) date) unknown) (unknown) (no (unknown) (unknown) amitriptyline 25 mg (units (unknown) date) tablet See Rx unknown) Instructions .Route .COMPLEX #90 tabs 06/04/21 (unknown) (no (unknown) (unknown) and colleagues, with (uni ts (unknown) date) an educational nan unknown) from [employer]. (unknown) (no (unknown) (unknown) and your family down: (un its (unknown) date) nearly every day unknown) (unknown) (no (unknown) (unknown) angioedema (units (unk nown) date) unknown) (unknown) (no (unknown) (unknown) aspirin Allergy (units (unknown) date) (Severe, Verified unknown) 01/25/22 08:04) (unknown) (no (unknown) (unknown) cortisone [CORTISONE] (un its (unknown) date) Allergy (Mild, unknown) Verified 01/25/22 08:04) (unknown) (no (unknown) (unknown) days (units (unkno wn) date) unknown) (unknown) (no (unknown) (unknown) eatinine ratio less (unit s (unknown) date) than 30 mg/g unknown) (unknown) (no (unknown) (unknown) filtration rate (GFR) (un its (unknown) date) between 30-44 unknown) mL/min/1.73 square meter and albuminuria cr (unknown) (no (unknown) (unknown) furosemide 40 mg (units (unknown) date) tablet (Lasix) 40 mg unknown) PO BID edema #60 tabs 01/02/22 [Rx (unknown) (no (unknown) (unknown) have occurred. If [...] (unknown) date) unknown) (unknown) (no (unknown) (unknown) isosorbide (units (unk nown) date) mononitrate 60 mg unknown) tablet,extended release 24 hr 60 mg PO DAILY (unknown) (no (unknown) (unknown) lisinopril Adverse (units (unknown) date) Reaction (Severe, unknown) Verified 01/25/22 08:04) (unknown) (no (unknown) (unknown) may occur. Occasional (un its (unknown) date) wrong-word or unknown) 'sound-alike' substitutions may have (unknown) (no (unknown) (unknown) minoxidil 2.5 mg (units (unknown) date) tablet See Rx unknown) Instructions .Route .COMPLEX #60 tabs 10/29/21 (unknown) (no (unknown) (unknown) mold [MOLD] Allergy (unit s (unknown) date) (Intermediate, unknown) Verified 01/25/22 08:04) (unknown) (no (unknown) (unknown) more than usual: (units (unknown) date) several days unknown) (unknown) (no (unknown) (unknown) occurred due to the (unit s (unknown) date) inherent limitations unknown) of voice recognition software. Please (unknown) (no (unknown) (unknown) opposite - being so (unit s (unknown) date) fidgety or restless unknown) that you have been moving around a lot (unknown) (no (unknown) (unknown) people?: somewhat (units (unknown) date) difficult unknown) (unknown) (no (unknown) (unknown) potassium chloride 20 (un its (unknown) date) mEq tablet,extended unknown) release(part/cryst) 20 meq PO DAILY (unknown) (no (unknown) (unknown) problems? (units (unkn own) date) unknown) (unknown) (no (unknown) (unknown) read the note (units ( unknown) date) carefully and unknown) recognize, using context, where these substitutions (unknown) (no (unknown) (unknown) rivaroxaban 20 mg (units (unknown) date) tablet (Xarelto) 20 mg unknown ) PO QPM #90 tabs 11/28/21 [Rx Confirmed (unknown) (no (unknown) (unknown) software. Although (units (unknown) date) every effort is made unknown) to edit content, paste worker errors (unknown) (no (unknown) (unknown) television: more than (un its (unknown) date) half the days unknown) (unknown) (no (unknown) (unknown) way: several days (units (unknown) date) unknown) (unknown) (no (unknown) (unknown) while on lasix #30 (units (unknown) date) tabs 01/02/22 [Rx unknown) Confirmed 01/25/22] (unknown) (no (unknown) (unknown) you to do your work, (uni ts (unknown) date) take care of things at unknown ) home, or get along with other Result panel 291 (unknown) (no (unknown) (unknown) (no value) (units (unk nown) date) unknown) (unknown) (no (unknown) (unknown) [id number] (units (unkn own) date) unknown) (unknown) (no (unknown) (unknown) 03/30/21 [Rx (units (u nknown) date) Confirmed 01/25/22] unknown) (unknown) (no (unknown) (unknown) 08:14 (units (unkno wn) date) unknown) (unknown) (no (unknown) (unknown) 1. Little interest or (un its (unknown) date) pleasure in doing unknown) things: nearly every day (unknown) (no (unknown) (unknown) 01/24/22 [History (units (unknown) date) Confirmed 01/25/22] unknown) (unknown) (no (unknown) (unknown) 01/25/22 (units (unkno wn) date) unknown) (unknown) (no (unknown) (unknown) 01/25/22] (units (unkn own) date) unknown) (unknown) (no (unknown) (unknown) 2. Feeling down, (units (unknown) date) depressed, or unknown) hopeless: more than half the days (unknown) (no (unknown) (unknown) 3. Trouble falling or (un its (unknown) date) staying asleep, or unknown) sleeping too much: more than half the (unknown) (no (unknown) (unknown) 4. Feeling tired or (unit s (unknown) date) having little energy: unknown) nearly every day (unknown) (no (unknown) (unknown) 5. Poor appetite or (unit s (unknown) date) overeating: several unknown) days (unknown) (no (unknown) (unknown) 6. Feeling bad about (uni ts (unknown) date) yourself - or that you unknown ) are a failure or have let yourself (unknown) (no (unknown) (unknown) 7. Trouble (units (unk nown) date) concentrating on unknown) things, such as reading the newspaper or watching (unknown) (no (unknown) (unknown) 71 year old female (units (unknown) date) presents to clinic for unknown ) ER follow up. (unknown) (no (unknown) (unknown) 8. Moving or speaking (un its (unknown) date) so slowly that other unknown) people could have noticed? - Or the (unknown) (no (unknown) (unknown) 9. Thoughts that you (uni ts (unknown) date) would be better off unknown) or of hurting yourself in some (unknown) (no (unknown) (unknown) Age/Sex: 71 / F Date (uni ts (unknown) date) of Service: unknown) (unknown) (no (unknown) (unknown) Allergies (units (unkn own) date) unknown) (unknown) (no (unknown) (unknown) [place] [address] (unit s (unknown) date) unknown) (unknown) (no (unknown) (unknown) Attending Dr: Nora (units (unknown) date) Lorenza D.OPaco unknown) (unknown) (no (unknown) (unknown) BP 152/98 H (units (un known) date) unknown) (unknown) (no (unknown) (unknown) PADRON TREES Allergy (unit s (unknown) date) (Intermediate, Uncoded unknown ) 01/25/22 08:04) (unknown) (no (unknown) (unknown) Benign essential HTN (uni ts (unknown) date) unknown) (unknown) (no (unknown) (unknown) Blood Pressure (units (unknown) date) Location Lt brachial unknown) (unknown) (no (unknown) (unknown) CVA (cerebral (units ( unknown) date) vascular accident) unknown) (2006) (unknown) (no (unknown) (unknown) Chronic kidney (units (unknown) date) disease (CKD) stage unknown) G3b/A1, moderately decreased glomerular (unknown) (no (unknown) (unknown) Confirmed 01/25/22] (unit s (unknown) date) unknown) (unknown) (no (unknown) (unknown) : 1950 (units (unknown) date) Acct:[id number] unknown) (unknown) (no (unknown) (unknown) Depression/Bipolar (units (unknown) date) (159/160/161/169/177) unknown) (unknown) (no (unknown) (unknown) Dept at (units (unkno wn) date) . unknown) (unknown) (no (unknown) (unknown) Disabled Parking (units (unknown) date) Permit ##1 11/28/21 unknown) [Rx Confirmed 01/25/22] (unknown) (no (unknown) (unknown) Documented By: (units (unknown) date) Nora Britt 01/25/22 unknown) 0803 (unknown) (no (unknown) (unknown) Draft (units (unkno [...] hemorrhage) (2007) unknown) (unknown) (no (unknown) (unknown) If score is 2 or (units (unknown) date) greater, continue unknown) (unknown) (no (unknown) (unknown) If you checked off (units (unknown) date) any problems, how unknown) difficult have these problems made it for (unknown) (no (unknown) (unknown) Intake Note: (units [...] (unknown) Medical History (units (unknown) date) (Reviewed 01/24/22 @ unknown) 10:06 by Chapo Dhaliwal DO) (unknown) (no (unknown) (unknown) Medications (units (un known) date) unknown) (unknown) (no (unknown) (unknown) NASAL CONGESTION (units (unknown) date) unknown) (unknown) (no (unknown) (unknown) OAK TREES Allergy (units (unknown) date) (Intermediate, Uncoded unknown ) 01/25/22 08:04) (unknown) (no (unknown) (unknown) Obesity (units (unkno [...] date) hyperlipidemia unknown) (unknown) (no (unknown) (unknown) Over the last 2 (units (unknown) date) weeks, how often have unknown) you been bothered by any of the following (unknown) (no (unknown) (unknown) Oxygen Delivery (units (unknown) date) Method room air unknown) (unknown) (no (unknown) (unknown) PFSH (units (unkno wn) date) unknown) (unknown) (no (unknown) (unknown) PHQ-2 (units (unkno wn) date) unknown) (unknown) (no (unknown) (unknown) PHQ-2/PHQ-9 (units (un known) date) unknown) (unknown) (no (unknown) (unknown) Patient: [...] date) unknown) (unknown) (no (unknown) (unknown) Pulse 66 (units (unkno wn) date) unknown) (unknown) (no (unknown) (unknown) Pulse Oximetry (%) 98 (un its (unknown) date) unknown) (unknown) (no (unknown) (unknown) Pulse Source Monitor (uni ts (unknown) date) unknown) (unknown) (no (unknown) (unknown) Quality Reporting (units (unknown) date) unknown) (unknown) (no (unknown) (unknown) Questionnaires (units (unknown) date) unknown) (unknown) (no (unknown) [...] (unknown) date) unknown) (unknown) (no (unknown) (unknown) Source: Developed by (uni ts (unknown) date) Drs. Lencho Andrade unknownKasandra Can, Darrin Elliott (unknown) (no (unknown) (unknown) Status post (units [...] (unknown) Surgical History (units (unknown) date) (Reviewed 01/24/22 @ unknown) 10:06 by Chapo Dhaliwal DO) (unknown) (no (unknown) (unknown) Temp 97.5 F L (units ( unknown) date) unknown) (unknown) (no (unknown) (unknown) Temp Source Temporal (uni ts (unknown) date) Artery Scan unknown) (unknown) (no (unknown) (unknown) This note may have (units (unknown) date) been all or partially unknown) generated using voice recognition (unknown) (no (unknown) (unknown) Tobacco + Substance (unit s (unknown) date) Use unknown) (unknown) (no (unknown) (unknown) Tobacco Status (units (unknown) date) unknown) (unknown) (no (unknown) (unknown) Total score: 18 (units (unknown) date) unknown) (unknown) (no (unknown) (unknown) Total score: 5 (units (unknown) date) unknown) (unknown) (no (unknown) (unknown) Traumatic brain (units (unknown) date) injury (2011) unknown) (unknown) (no (unknown) (unknown) UTI (urinary tract (units (unknown) date) infection) unknown) (unknown) (no (unknown) (unknown) Visit Reasons: ER f/u (un its (unknown) date) *lon unknown) (unknown) (no (unknown) (unknown) Vitals (units (unkno wn) date) unknown) (unknown) (no (unknown) (unknown) Weight 208 lb (units ( unknown) date) unknown) (unknown) (no (unknown) (unknown) [Rx Confirmed (units ( unknown) date) 01/25/22] unknown) (unknown) (no (unknown) (unknown) alcohol intake: never (un its (unknown) date) unknown) (unknown) (no (unknown) (unknown) amitriptyline 25 mg (units (unknown) date) tablet See Rx unknown) Instructions .Route .COMPLEX #90 tabs 06/04/21 (unknown) (no (unknown) (unknown) and colleagues, with (uni ts (unknown) date) an educational nan unknown) from [employer]. (unknown) (no (unknown) (unknown) and your family down: (un its (unknown) date) nearly every day unknown) (unknown) (no (unknown) (unknown) angioedema (units (unk nown) date) unknown) (unknown) (no (unknown) (unknown) aspirin Allergy (units (unknown) date) (Severe, Verified unknown) 01/25/22 08:04) (unknown) (no (unknown) (unknown) cortisone [CORTISONE] (un its (unknown) date) Allergy (Mild, unknown) Verified 01/25/22 08:04) (unknown) (no (unknown) (unknown) days (units (unkno wn) date) unknown) (unknown) (no (unknown) (unknown) eatinine ratio less (unit s (unknown) date) than 30 mg/g unknown) (unknown) (no (unknown) (unknown) filtration rate (GFR) (un its (unknown) date) between 30-44 unknown) mL/min/1.73 square meter and albuminuria cr (unknown) (no (unknown) (unknown) furosemide 40 mg (units (unknown) date) tablet (Lasix) 40 mg unknown) PO BID edema #60 tabs 01/02/22 [Rx (unknown) (no (unknown) (unknown) have occurred. If [...] (unknown) date) unknown) (unknown) (no (unknown) (unknown) isosorbide (units (unk nown) date) mononitrate 60 mg unknown) tablet,extended release 24 hr 60 mg PO DAILY (unknown) (no (unknown) (unknown) lisinopril Adverse (units (unknown) date) Reaction (Severe, unknown) Verified 01/25/22 08:04) (unknown) (no (unknown) (unknown) may occur. Occasional (un its (unknown) date) wrong-word or unknown) 'sound-alike' substitutions may have (unknown) (no (unknown) (unknown) minoxidil 2.5 mg (units (unknown) date) tablet See Rx unknown) Instructions .Route .COMPLEX #60 tabs 10/29/21 (unknown) (no (unknown) (unknown) mold [MOLD] Allergy (unit s (unknown) date) (Intermediate, unknown) Verified 01/25/22 08:04) (unknown) (no (unknown) (unknown) more than usual: (units (unknown) date) several days unknown) (unknown) (no (unknown) (unknown) occurred due to the (unit s (unknown) date) inherent limitations unknown) of voice recognition software. Please (unknown) (no (unknown) (unknown) opposite - being so (unit s (unknown) date) fidgety or restless unknown) that you have been moving around a lot (unknown) (no (unknown) (unknown) people?: somewhat (units (unknown) date) difficult unknown) (unknown) (no (unknown) (unknown) potassium chloride 20 (un its (unknown) date) mEq tablet,extended unknown) release(part/cryst) 20 meq PO DAILY (unknown) (no (unknown) (unknown) problems? (units (unkn own) date) unknown) (unknown) (no (unknown) (unknown) read the note (units ( unknown) date) carefully and unknown) recognize, using context, where these substitutions (unknown) (no (unknown) (unknown) rivaroxaban 20 mg (units (unknown) date) tablet (Xarelto) 20 mg unknown ) PO QPM #90 tabs 11/28/21 [Rx Confirmed (unknown) (no (unknown) (unknown) software. Although (units (unknown) date) every effort is made unknown) to edit content, paste worker errors (unknown) (no (unknown) (unknown) television: more than (un its (unknown) date) half the days unknown) (unknown) (no (unknown) (unknown) way: several days (units (unknown) date) unknown) (unknown) (no (unknown) (unknown) while on lasix #30 (units (unknown) date) tabs 01/02/22 [Rx unknown) Confirmed 01/25/22] (unknown) (no (unknown) (unknown) you to do your work, (uni ts (unknown) date) take care of things at unknown ) home, or get along with other Result panel 292 (unknown) (no (unknown) (unknown) (no value) (units (unk nown) date) unknown) (unknown) (no (unknown) (unknown) (1) Benign essential (uni ts (unknown) date) HTN: unknown) (unknown) (no (unknown) (unknown) [id number] (units (unkn own) date) unknown) (unknown) (no (unknown) (unknown) 03/30/21 [Rx (units (u nknown) date) Confirmed 01/25/22] unknown) (unknown) (no (unknown) (unknown) 08:14 (units (unkno wn) date) unknown) (unknown) (no (unknown) (unknown) 1. Little interest or (un its (unknown) date) pleasure in doing unknown) things: nearly every day (unknown) (no (unknown) (unknown) 01/24/22 [History (units (unknown) date) Confirmed 01/25/22] unknown) (unknown) (no (unknown) (unknown) 01/25/22 (units (unkno wn) date) unknown) (unknown) (no (unknown) (unknown) 01/25/22] (units (unkn own) date) unknown) (unknown) (no (unknown) (unknown) 2. Feeling down, (units (unknown) date) depressed, or unknown) hopeless: more than half the days (unknown) (no (unknown) (unknown) 3. Trouble falling or (un its (unknown) date) staying asleep, or unknown) sleeping too much: more than half the (unknown) (no (unknown) (unknown) 4. Feeling tired or (unit s (unknown) date) having little energy: unknown) nearly every day (unknown) (no (unknown) (unknown) 5. Poor appetite or (unit s (unknown) date) overeating: several unknown) days (unknown) (no (unknown) (unknown) 6. Feeling bad about (uni ts (unknown) date) yourself - or that you unknown ) are a failure or have let yourself (unknown) (no (unknown) (unknown) 7. Trouble (units (unk nown) date) concentrating on unknown) things, such as reading the newspaper or watching (unknown) (no (unknown) (unknown) 71 year old female (units (unknown) date) presents to clinic for unknown ) ER follow up. (unknown) (no (unknown) (unknown) 8. Moving or speaking (un its (unknown) date) so slowly that other unknown) people could have noticed? - Or the (unknown) (no (unknown) (unknown) 9. Thoughts that you (uni ts (unknown) date) would be better off unknown) or of hurting yourself in some (unknown) (no (unknown) (unknown) Age/Sex: 71 / F Date (uni ts (unknown) date) of Service: unknown) (unknown) (no (unknown) (unknown) Allergies (units (unkn own) date) unknown) (unknown) (no (unknown) (unknown) HANNY Nixon [id number] (unit s (unknown) date) unknown) (unknown) (no (unknown) (unknown) Assessment + Plan (units (unknown) date) unknown) (unknown) (no (unknown) (unknown) Attending Dr: Nora (units (unknown) date) Lorenza D.O. unknown) (unknown) (no (unknown) (unknown) BP 152/98 H (units (un known) date) unknown) (unknown) (no (unknown) (unknown) PADRON TREES Allergy (unit s (unknown) date) (Intermediate, Uncoded unknown ) 01/25/22 08:04) (unknown) (no (unknown) (unknown) Benign essential HTN (uni ts (unknown) date) unknown) (unknown) (no (unknown) (unknown) Blood Pressure (units (unknown) date) Location Lt brachial unknown) (unknown) (no (unknown) (unknown) CVA (cerebral (units ( unknown) date) vascular accident) unknown) (2006) (unknown) (no (unknown) (unknown) Chronic kidney (units (unknown) date) disease (CKD) stage unknown) G3b/A1, moderately decreased glomerular (unknown) (no (unknown) (unknown) Confirmed 01/25/22] (unit s (unknown) date) unknown) (unknown) (no (unknown) (unknown) : 1950 (units (unknown) date) Acct:[id number] unknown) (unknown) (no (unknown) (unknown) Depression/Bipolar (units (unknown) date) (159/160/161/169/177) unknown) (unknown) (no (unknown) (unknown) Dept at (units (unkno wn) date) . unknown) (unknown) (no (unknown) (unknown) Disabled Parking (units (unknown) date) Permit ##1 11/28/21 unknown) [Rx Confirmed 01/25/22] (unknown) (no (unknown) (unknown) Documented By: (units (unknown) date) Nora Britt 01/25/22 unknown) [id number] (unknown) (no (unknown) (unknown) Draft (units (unkno [...] hemorrhage) (2007) unknown) (unknown) (no (unknown) (unknown) If score is 2 or (units (unknown) date) greater, continue unknown) (unknown) (no (unknown) (unknown) If you checked off (units (unknown) date) any problems, how unknown) difficult have these problems made it for (unknown) (no (unknown) (unknown) Intake Note: (units [...] (unknown) Medical History (units (unknown) date) (Reviewed 01/24/22 @ unknown) 10:06 by Chapo Dhaliwal DO) (unknown) (no (unknown) (unknown) Medications (units (un known) date) unknown) (unknown) (no (unknown) (unknown) NASAL CONGESTION (units (unknown) date) unknown) (unknown) (no (unknown) (unknown) OAK TREES Allergy (units (unknown) date) (Intermediate, Uncoded unknown ) 01/25/22 08:04) (unknown) (no (unknown) (unknown) Obesity (units (unkno [...] date) hyperlipidemia unknown) (unknown) (no (unknown) (unknown) Over the last 2 (units (unknown) date) weeks, how often have unknown) you been bothered by any of the following (unknown) (no (unknown) (unknown) Oxygen Delivery (units (unknown) date) Method room air unknown) (unknown) (no (unknown) (unknown) PFSH (units (unkno wn) date) unknown) (unknown) (no (unknown) (unknown) PHQ-2 (units (unkno wn) date) unknown) (unknown) (no (unknown) (unknown) PHQ-2/PHQ-9 (units (un known) date) unknown) (unknown) (no (unknown) (unknown) Patient: [...] date) unknown) (unknown) (no (unknown) (unknown) Pulse 66 (units (unkno wn) date) unknown) (unknown) (no (unknown) (unknown) Pulse Oximetry (%) 98 (un its (unknown) date) unknown) (unknown) (no (unknown) (unknown) Pulse Source Monitor (uni ts (unknown) date) unknown) (unknown) (no (unknown) (unknown) Quality Reporting (units (unknown) date) unknown) (unknown) (no (unknown) (unknown) Questionnaires (units (unknown) date) unknown) (unknown) (no (unknown) [...] (unknown) date) unknown) (unknown) (no (unknown) (unknown) Source: Developed by (uni ts (unknown) date) Drs. Lencho Andrade unknownChepe Fuentes, Kasandra Hoover, Darrin Elliott (unknown) (no (unknown) (unknown) Status post (units [...] unknown) date) unknown) (unknown) (no (unknown) (unknown) Superficial (units (un known) date) thrombophlebitis of unknown) right leg (unknown) (no (unknown) (unknown) Surgical History (units (unknown) date) (Reviewed 01/24/22 @ unknown) 10:06 by Chapo Dhaliwal DO) (unknown) (no (unknown) (unknown) Temp 97.5 F L (units ( unknown) date) unknown) (unknown) (no (unknown) (unknown) Temp Source Temporal (uni ts (unknown) date) Artery Scan unknown) (unknown) (no (unknown) (unknown) This note may have (units (unknown) date) been all or partially unknown) generated using voice recognition (unknown) (no (unknown) (unknown) Tobacco + Substance (unit s (unknown) date) Use unknown) (unknown) (no (unknown) (unknown) Tobacco Status (units (unknown) date) unknown) (unknown) (no (unknown) (unknown) Total score: 18 (units (unknown) date) unknown) (unknown) (no (unknown) (unknown) Total score: 5 (units (unknown) date) unknown) (unknown) (no (unknown) (unknown) Traumatic brain (units (unknown) date) injury (2010) unknown) (unknown) (no (unknown) (unknown) UTI (urinary tract (units (unknown) date) infection) unknown) (unknown) (no (unknown) (unknown) Visit Reasons: ER f/u (un its (unknown) date) *lon unknown) (unknown) (no (unknown) (unknown) Vitals (units (unkno wn) date) unknown) (unknown) (no (unknown) (unknown) Weight 208 lb (units ( unknown) date) unknown) (unknown) (no (unknown) (unknown) [Rx Confirmed (units ( unknown) date) 01/25/22] unknown) (unknown) (no (unknown) (unknown) alcohol intake: never (un its (unknown) date) unknown) (unknown) (no (unknown) (unknown) amitriptyline 25 mg (units (unknown) date) tablet See Rx unknown) Instructions .Route .COMPLEX #90 tabs 06/04/21 (unknown) (no (unknown) (unknown) and colleagues, with (uni ts (unknown) date) an educational nan unknown) from [employer]. (unknown) (no (unknown) (unknown) and your family down: (un its (unknown) date) nearly every day unknown) (unknown) (no (unknown) (unknown) angioedema (units (unk nown) date) unknown) (unknown) (no (unknown) (unknown) aspirin Allergy (units (unknown) date) (Severe, Verified unknown) 01/25/22 08:04) (unknown) (no (unknown) (unknown) cortisone [CORTISONE] (un its (unknown) date) Allergy (Mild, unknown) Verified 01/25/22 08:04) (unknown) (no (unknown) (unknown) days (units (unkno wn) date) unknown) (unknown) (no (unknown) (unknown) eatinine ratio less (unit s (unknown) date) than 30 mg/g unknown) (unknown) (no (unknown) (unknown) filtration rate (GFR) (un its (unknown) date) between 30-44 unknown) mL/min/1.73 square meter and albuminuria cr (unknown) (no (unknown) (unknown) furosemide 40 mg (units (unknown) date) tablet (Lasix) 40 mg unknown) PO BID edema #60 tabs 01/02/22 [Rx (unknown) (no (unknown) (unknown) have occurred. If [...] (unknown) date) unknown) (unknown) (no (unknown) (unknown) isosorbide (units (unk nown) date) mononitrate 60 mg unknown) tablet,extended release 24 hr 60 mg PO DAILY (unknown) (no (unknown) (unknown) lisinopril Adverse (units (unknown) date) Reaction (Severe, unknown) Verified 01/25/22 08:04) (unknown) (no (unknown) (unknown) may occur. Occasional (un its (unknown) date) wrong-word or unknown) 'sound-alike' substitutions may have (unknown) (no (unknown) (unknown) minoxidil 2.5 mg (units (unknown) date) tablet See Rx unknown) Instructions .Route .COMPLEX #60 tabs 10/29/21 (unknown) (no (unknown) (unknown) mold [MOLD] Allergy (unit s (unknown) date) (Intermediate, unknown) Verified 01/25/22 08:04) (unknown) (no (unknown) (unknown) more than usual: (units (unknown) date) several days unknown) (unknown) (no (unknown) (unknown) occurred due to the (unit s (unknown) date) inherent limitations unknown) of voice recognition software. Please (unknown) (no (unknown) (unknown) opposite - being so (unit s (unknown) date) fidgety or restless unknown) that you have been moving around a lot (unknown) (no (unknown) (unknown) people?: somewhat (units (unknown) date) difficult unknown) (unknown) (no (unknown) (unknown) potassium chloride 20 (un its (unknown) date) mEq tablet,extended unknown) release(part/cryst) 20 meq PO DAILY (unknown) (no (unknown) (unknown) problems? (units (unkn own) date) unknown) (unknown) (no (unknown) (unknown) read the note (units ( unknown) date) carefully and unknown) recognize, using context, where these substitutions (unknown) (no (unknown) (unknown) rivaroxaban 20 mg (units (unknown) date) tablet (Xarelto) 20 mg unknown ) PO QPM #90 tabs 11/28/21 [Rx Confirmed (unknown) (no (unknown) (unknown) software. Although (units (unknown) date) every effort is made unknown) to edit content, paste worker errors (unknown) (no (unknown) (unknown) television: more than (un its (unknown) date) half the days unknown) (unknown) (no (unknown) (unknown) way: several days (units (unknown) date) unknown) (unknown) (no (unknown) (unknown) while on lasix #30 (units (unknown) date) tabs 01/02/22 [Rx unknown) Confirmed 01/25/22] (unknown) (no (unknown) (unknown) you to do your work, (uni ts (unknown) date) take care of things at unknown ) home, or get along with other Result panel 293 (unknown) (no (unknown) (unknown) (no value) (units (unk nown) date) unknown) (unknown) (no (unknown) (unknown) (1) Benign essential (uni ts (unknown) date) HTN: unknown) (unknown) (no (unknown) (unknown) [id number] (units (unkn own) date) unknown) (unknown) (no (unknown) (unknown) 03/30/21 [Rx (units (u nknown) date) Confirmed 01/25/22] unknown) (unknown) (no (unknown) (unknown) 08:14 (units (unkno wn) date) unknown) (unknown) (no (unknown) (unknown) 1. Little interest or (un its (unknown) date) pleasure in doing unknown) things: nearly every day (unknown) (no (unknown) (unknown) 01/24/22 [History (units (unknown) date) Confirmed 01/25/22] unknown) (unknown) (no (unknown) (unknown) 01/25/22 (units (unkno wn) date) unknown) (unknown) (no (unknown) (unknown) 01/25/22] (units (unkn own) date) unknown) (unknown) (no (unknown) (unknown) 2. Feeling down, (units (unknown) date) depressed, or unknown) hopeless: more than half the days (unknown) (no (unknown) (unknown) 3. Trouble falling or (un its (unknown) date) staying asleep, or unknown) sleeping too much: more than half the (unknown) (no (unknown) (unknown) 4. Feeling tired or (unit s (unknown) date) having little energy: unknown) nearly every day (unknown) (no (unknown) (unknown) 5. Poor appetite or (unit s (unknown) date) overeating: several unknown) days (unknown) (no (unknown) (unknown) 6. Feeling bad about (uni ts (unknown) date) yourself - or that you unknown ) are a failure or have let yourself (unknown) (no (unknown) (unknown) 7. Trouble (units (unk nown) date) concentrating on unknown) things, such as reading the newspaper or watching (unknown) (no (unknown) (unknown) 71 year old female (units (unknown) date) presents to clinic for unknown ) ER follow up. (unknown) (no (unknown) (unknown) 8. Moving or speaking (un its (unknown) date) so slowly that other unknown) people could have noticed? - Or the (unknown) (no (unknown) (unknown) 9. Thoughts that you (uni ts (unknown) date) would be better off unknown) or of hurting yourself in some (unknown) (no (unknown) (unknown) Age/Sex: 71 / F Date (uni ts (unknown) date) of Service: unknown) (unknown) (no (unknown) (unknown) Allergies (units (unkn own) date) unknown) (unknown) (no (unknown) (unknown) HANNY Nixon [phone] (unit s (unknown) date) unknown) (unknown) (no (unknown) (unknown) Assessment + Plan (units (unknown) date) unknown) (unknown) (no (unknown) (unknown) Attending Dr: Nora (units (unknown) date) Lorenza Hoffman unknown) (unknown) (no (unknown) (unknown) BP 152/98 H (units (un known) date) unknown) (unknown) (no (unknown) (unknown) PADRON TREES Allergy (unit s (unknown) date) (Intermediate, Uncoded unknown ) 01/25/22 08:04) (unknown) (no (unknown) (unknown) Benign essential HTN (uni ts (unknown) date) unknown) (unknown) (no (unknown) (unknown) Blood Pressure (units (unknown) date) Location Lt brachial unknown) (unknown) (no (unknown) (unknown) CVA (cerebral (units ( unknown) date) vascular accident) unknown) (2006) (unknown) (no (unknown) (unknown) Chronic kidney (units (unknown) date) disease (CKD) stage unknown) G3b/A1, moderately decreased glomerular (unknown) (no (unknown) (unknown) Confirmed 01/25/22] (unit s (unknown) date) unknown) (unknown) (no (unknown) (unknown) : 1950 (units (unknown) date) Acct:[id number] unknown) (unknown) (no (unknown) (unknown) Depression/Bipolar (units (unknown) date) (159/160/161/169/177) unknown) (unknown) (no (unknown) (unknown) Dept at (units (unkno wn) date) . unknown) (unknown) (no (unknown) (unknown) Disabled Parking (units (unknown) date) Permit ##1 11/28/21 unknown) [Rx Confirmed 01/25/22] (unknown) (no (unknown) (unknown) Documented By: (units (unknown) date) Nora Britt 01/25/22 unknown) 0803 (unknown) (no (unknown) (unknown) Draft (units (unkno [...] hemorrhage) (2007) unknown) (unknown) (no (unknown) (unknown) If score is 2 or (units (unknown) date) greater, continue unknown) (unknown) (no (unknown) (unknown) If you checked off (units (unknown) date) any problems, how unknown) difficult have these problems made it for (unknown) (no (unknown) (unknown) Intake Note: (units [...] (unknown) Medical History (units (unknown) date) (Reviewed 01/24/22 @ unknown) 10:06 by Chapo Dhaliwal DO) (unknown) (no (unknown) (unknown) Medications (units (un known) date) unknown) (unknown) (no (unknown) (unknown) NASAL CONGESTION (units (unknown) date) unknown) (unknown) (no (unknown) (unknown) OAK TREES Allergy (units (unknown) date) (Intermediate, Uncoded unknown ) 01/25/22 08:04) (unknown) (no (unknown) (unknown) Obesity (units (unkno [...] date) hyperlipidemia unknown) (unknown) (no (unknown) (unknown) Over the last 2 (units (unknown) date) weeks, how often have unknown) you been bothered by any of the following (unknown) (no (unknown) (unknown) Oxygen Delivery (units (unknown) date) Method room air unknown) (unknown) (no (unknown) (unknown) PFSH (units (unkno wn) date) unknown) (unknown) (no (unknown) (unknown) PHQ-2 (units (unkno wn) date) unknown) (unknown) (no (unknown) (unknown) PHQ-2/PHQ-9 (units (un known) date) unknown) (unknown) (no (unknown) (unknown) Patient: [...] date) unknown) (unknown) (no (unknown) (unknown) Pulse 66 (units (unkno wn) date) unknown) (unknown) (no (unknown) (unknown) Pulse Oximetry (%) 98 (un its (unknown) date) unknown) (unknown) (no (unknown) (unknown) Pulse Source Monitor (uni ts (unknown) date) unknown) (unknown) (no (unknown) (unknown) Quality Reporting (units (unknown) date) unknown) (unknown) (no (unknown) (unknown) Questionnaires (units (unknown) date) unknown) (unknown) (no (unknown) [...] (unknown) date) unknown) (unknown) (no (unknown) (unknown) Source: Developed by (uni ts (unknown) date) Drs. Lencho Andrade unknownKasandra Can, Darrin Elliott (unknown) (no (unknown) (unknown) Status post (units [...] unknown) date) unknown) (unknown) (no (unknown) (unknown) Superficial (units (un known) date) thrombophlebitis of unknown) right leg (unknown) (no (unknown) (unknown) Surgical History (units (unknown) date) (Reviewed 01/24/22 @ unknown) 10:06 by Chapo Dhaliwal DO) (unknown) (no (unknown) (unknown) Temp 97.5 F L (units ( unknown) date) unknown) (unknown) (no (unknown) (unknown) Temp Source Temporal (uni ts (unknown) date) Artery Scan unknown) (unknown) (no (unknown) (unknown) This note may have (units (unknown) date) been all or partially unknown) generated using voice recognition (unknown) (no (unknown) (unknown) Tobacco + Substance (unit s (unknown) date) Use unknown) (unknown) (no (unknown) (unknown) Tobacco Status (units (unknown) date) unknown) (unknown) (no (unknown) (unknown) Total score: 18 (units (unknown) date) unknown) (unknown) (no (unknown) (unknown) Total score: 5 (units (unknown) date) unknown) (unknown) (no (unknown) (unknown) Traumatic brain (units (unknown) date) injury (2010) unknown) (unknown) (no (unknown) (unknown) UTI (urinary tract (units (unknown) date) infection) unknown) (unknown) (no (unknown) (unknown) Visit Reasons: ER f/u (un its (unknown) date) *lon unknown) (unknown) (no (unknown) (unknown) Vitals (units (unkno wn) date) unknown) (unknown) (no (unknown) (unknown) Weight 208 lb (units ( unknown) date) unknown) (unknown) (no (unknown) (unknown) [Rx Confirmed (units ( unknown) date) 01/25/22] unknown) (unknown) (no (unknown) (unknown) alcohol intake: never (un its (unknown) date) unknown) (unknown) (no (unknown) (unknown) amitriptyline 25 mg (units (unknown) date) tablet See Rx unknown) Instructions .Route .COMPLEX #90 tabs 06/04/21 (unknown) (no (unknown) (unknown) and colleagues, with (uni ts (unknown) date) an educational nan unknown) from [employer]. (unknown) (no (unknown) (unknown) and your family down: (un its (unknown) date) nearly every day unknown) (unknown) (no (unknown) (unknown) angioedema (units (unk nown) date) unknown) (unknown) (no (unknown) (unknown) aspirin Allergy (units (unknown) date) (Severe, Verified unknown) 01/25/22 08:04) (unknown) (no (unknown) (unknown) cortisone [CORTISONE] (un its (unknown) date) Allergy (Mild, unknown) Verified 01/25/22 08:04) (unknown) (no (unknown) (unknown) days (units (unkno wn) date) unknown) (unknown) (no (unknown) (unknown) eatinine ratio less (unit s (unknown) date) than 30 mg/g unknown) (unknown) (no (unknown) (unknown) filtration rate (GFR) (un its (unknown) date) between 30-44 unknown) mL/min/1.73 square meter and albuminuria cr (unknown) (no (unknown) (unknown) furosemide 40 mg (units (unknown) date) tablet (Lasix) 40 mg unknown) PO BID edema #60 tabs 01/02/22 [Rx (unknown) (no (unknown) (unknown) have occurred. If [...] (unknown) date) unknown) (unknown) (no (unknown) (unknown) isosorbide (units (unk nown) date) mononitrate 60 mg unknown) tablet,extended release 24 hr 60 mg PO DAILY (unknown) (no (unknown) (unknown) lisinopril Adverse (units (unknown) date) Reaction (Severe, unknown) Verified 01/25/22 08:04) (unknown) (no (unknown) (unknown) may occur. Occasional (un its (unknown) date) wrong-word or unknown) 'sound-alike' substitutions may have (unknown) (no (unknown) (unknown) minoxidil 2.5 mg (units (unknown) date) tablet See Rx unknown) Instructions .Route .COMPLEX #60 tabs 10/29/21 (unknown) (no (unknown) (unknown) mold [MOLD] Allergy (unit s (unknown) date) (Intermediate, unknown) Verified 01/25/22 08:04) (unknown) (no (unknown) (unknown) more than usual: (units (unknown) date) several days unknown) (unknown) (no (unknown) (unknown) occurred due to the (unit s (unknown) date) inherent limitations unknown) of voice recognition software. Please (unknown) (no (unknown) (unknown) opposite - being so (unit s (unknown) date) fidgety or restless unknown) that you have been moving around a lot (unknown) (no (unknown) (unknown) people?: somewhat (units (unknown) date) difficult unknown) (unknown) (no (unknown) (unknown) potassium chloride 20 (un its (unknown) date) mEq tablet,extended unknown) release(part/cryst) 20 meq PO DAILY (unknown) (no (unknown) (unknown) problems? (units (unkn own) date) unknown) (unknown) (no (unknown) (unknown) read the note (units ( unknown) date) carefully and unknown) recognize, using context, where these substitutions (unknown) (no (unknown) (unknown) rivaroxaban 20 mg (units (unknown) date) tablet (Xarelto) 20 mg unknown ) PO QPM #90 tabs 11/28/21 [Rx Confirmed (unknown) (no (unknown) (unknown) software. Although (units (unknown) date) every effort is made unknown) to edit content, paste worker errors (unknown) (no (unknown) (unknown) television: more than (un its (unknown) date) half the days unknown) (unknown) (no (unknown) (unknown) way: several days (units (unknown) date) unknown) (unknown) (no (unknown) (unknown) while on lasix #30 (units (unknown) date) tabs 01/02/22 [Rx unknown) Confirmed 01/25/22] (unknown) (no (unknown) (unknown) you to do your work, (uni ts (unknown) date) take care of things at unknown ) home, or get along with other Result panel 294 (unknown) (no (unknown) (unknown) (no value) (units (unk nown) date) unknown) (unknown) (no (unknown) (unknown) (1) Benign essential (uni ts (unknown) date) HTN: unknown) (unknown) (no (unknown) (unknown) [id number] (units (unkn own) date) unknown) (unknown) (no (unknown) (unknown) 03/30/21 [Rx (units (u nknown) date) Confirmed 01/25/22] unknown) (unknown) (no (unknown) (unknown) 08:14 (units (unkno wn) date) unknown) (unknown) (no (unknown) (unknown) 1. Little interest or (un its (unknown) date) pleasure in doing unknown) things: nearly every day (unknown) (no (unknown) (unknown) 01/24/22 [History (units (unknown) date) Confirmed 01/25/22] unknown) (unknown) (no (unknown) (unknown) 01/25/22 (units (unkno wn) date) unknown) (unknown) (no (unknown) (unknown) 01/25/22] (units (unkn own) date) unknown) (unknown) (no (unknown) (unknown) 2. Feeling down, (units (unknown) date) depressed, or unknown) hopeless: more than half the days (unknown) (no (unknown) (unknown) 3. Trouble falling or (un its (unknown) date) staying asleep, or unknown) sleeping too much: more than half the (unknown) (no (unknown) (unknown) 4. Feeling tired or (unit s (unknown) date) having little energy: unknown) nearly every day (unknown) (no (unknown) (unknown) 5. Poor appetite or (unit s (unknown) date) overeating: several unknown) days (unknown) (no (unknown) (unknown) 6. Feeling bad about (uni ts (unknown) date) yourself - or that you unknown ) are a failure or have let yourself (unknown) (no (unknown) (unknown) 7. Trouble (units (unk nown) date) concentrating on unknown) things, such as reading the newspaper or watching (unknown) (no (unknown) (unknown) 71 year old female (units (unknown) date) presents to clinic for unknown ) ER follow up. (unknown) (no (unknown) (unknown) 8. Moving or speaking (un its (unknown) date) so slowly that other unknown) people could have noticed? - Or the (unknown) (no (unknown) (unknown) 9. Thoughts that you (uni ts (unknown) date) would be better off unknown) or of hurting yourself in some (unknown) (no (unknown) (unknown) Age/Sex: 71 / F Date (uni ts (unknown) date) of Service: unknown) (unknown) (no (unknown) (unknown) Allergies (units (unkn own) date) unknown) (unknown) (no (unknown) (unknown) [place] [address] (unit s (unknown) date) unknown) (unknown) (no (unknown) (unknown) Assessment + Plan (units (unknown) date) unknown) (unknown) (no (unknown) (unknown) Attending Dr: Nora (units (unknown) date) Lorenza Hoffman unknown) (unknown) (no (unknown) (unknown) BP 152/98 H (units (un known) date) unknown) (unknown) (no (unknown) (unknown) PADRON TREES Allergy (unit s (unknown) date) (Intermediate, Uncoded unknown ) 01/25/22 08:04) (unknown) (no (unknown) (unknown) Benign essential HTN (uni ts (unknown) date) unknown) (unknown) (no (unknown) (unknown) Blood Pressure (units (unknown) date) Location Lt brachial unknown) (unknown) (no (unknown) (unknown) CVA (cerebral (units ( unknown) date) vascular accident) unknown) (2006) (unknown) (no (unknown) (unknown) Chronic kidney (units (unknown) date) disease (CKD) stage unknown) G3b/A1, moderately decreased glomerular (unknown) (no (unknown) (unknown) Confirmed 01/25/22] (unit s (unknown) date) unknown) (unknown) (no (unknown) (unknown) : 1950 (units (unknown) date) Acct:[id number] unknown) (unknown) (no (unknown) (unknown) Depression/Bipolar (units (unknown) date) (159/160/161/169/177) unknown) (unknown) (no (unknown) (unknown) Dept at (units (unkno wn) date) . unknown) (unknown) (no (unknown) (unknown) Disabled Parking (units (unknown) date) Permit ##1 11/28/21 unknown) [Rx Confirmed 01/25/22] (unknown) (no (unknown) (unknown) Documented By: (units (unknown) date) Lorenza Nora 01/25/22 unknown) 0803 (unknown) (no (unknown) (unknown) Draft (units (unkno [...] hemorrhage) (2007) unknown) (unknown) (no (unknown) (unknown) If score is 2 or (units (unknown) date) greater, continue unknown) (unknown) (no (unknown) (unknown) If you checked off (units (unknown) date) any problems, how unknown) difficult have these problems made it for (unknown) (no (unknown) (unknown) Intake Note: (units [...] (unknown) Medical History (units (unknown) date) (Reviewed 01/24/22 @ unknown) 10:06 by Chapo Dhaliwal DO) (unknown) (no (unknown) (unknown) Medications (units (un known) date) unknown) (unknown) (no (unknown) (unknown) Medications: (units (u nknown) date) unknown) (unknown) (no (unknown) (unknown) NASAL CONGESTION (units (unknown) date) unknown) (unknown) (no (unknown) (unknown) New (units (unkno wn) date) unknown) (unknown) (no (unknown) (unknown) OAK TREES Allergy (units (unknown) date) (Intermediate, Uncoded unknown ) 01/25/22 08:04) (unknown) (no (unknown) (unknown) Obesity (units (unkno wn) date) unknown) (unknown) (no (unknown) (unknown) Obstructive sleep (units (unknown) date) apnea syndrome unknown) (12/30/14) (unknown) (no (unknown) (unknown) Orders: (units (unkno wn) date) unknown) (unknown) (no (unknown) (unknown) Osteoporosis, (units ( unknown) date) unspecified (12/18/10) unknown ) (unknown) (no (unknown) (unknown) Other Menstrual (units (unknown) date) Period: Surgical unknown) Menopause (unknown) (no (unknown) (unknown) Other and unspecified (un its (unknown) date) hyperlipidemia unknown) (unknown) (no (unknown) (unknown) Over the last 2 (units (unknown) date) weeks, how often have unknown) you been bothered by any of the following (unknown) (no (unknown) (unknown) Oxygen Delivery (units (unknown) date) Method room air unknown) (unknown) (no (unknown) (unknown) PFSH (units (unkno wn) date) unknown) (unknown) (no (unknown) (unknown) PHQ-2 (units (unkno wn) date) unknown) (unknown) (no (unknown) (unknown) PHQ-2/PHQ-9 (units (un known) date) unknown) (unknown) (no (unknown) (unknown) Patient: [...] date) unknown) (unknown) (no (unknown) (unknown) Pulse 66 (units (unkno wn) date) unknown) (unknown) (no (unknown) (unknown) Pulse Oximetry (%) 98 (un its (unknown) date) unknown) (unknown) (no (unknown) (unknown) Pulse Source Monitor (uni ts (unknown) date) unknown) (unknown) (no (unknown) (unknown) Quality Reporting (units (unknown) date) unknown) (unknown) (no (unknown) (unknown) Questionnaires (units (unknown) date) unknown) (unknown) (no (unknown) (unknown) Reason For Visit (units (unknown) date) unknown) (unknown) (no (unknown) (unknown) Referral (units (unkno wn) date) Cardio/Pulmonary Rehab unknown ) J44.9 - Chronic obstructive pulmonary disease, (unknown) (no (unknown) (unknown) Referrals (units (unkn own) date) unknown) (unknown) (no (unknown) (unknown) Refilled (units (unkno wn) date) unknown) (unknown) (no (unknown) (unknown) Ribs, multiple (units (unknown) date) fractures unknown) (unknown) (no (unknown) (unknown) Sebaceous cyst (units (unknown) date) unknown) (unknown) (no (unknown) (unknown) Signed By: (units (unk nown) date) unknown) (unknown) (no (unknown) (unknown) Smoking Status: (units (unknown) date) Current some day unknown) smoker (unknown) (no (unknown) (unknown) Social History (units (unknown) date) unknown) (unknown) (no (unknown) (unknown) Source: Developed by (uni ts (unknown) date) Drs. Lencho Andrade unknownKasandra Can, Darrin Elliott (unknown) (no (unknown) (unknown) Status post (units [...] unknown) date) unknown) (unknown) (no (unknown) (unknown) Superficial (units (un known) date) thrombophlebitis of unknown) right leg (unknown) (no (unknown) (unknown) Surgical History (units (unknown) date) (Reviewed 01/24/22 @ unknown) 10:06 by Chapo Dhaliwal DO) (unknown) (no (unknown) (unknown) Temp 97.5 F L (units ( unknown) date) unknown) (unknown) (no (unknown) (unknown) Temp Source Temporal (uni ts (unknown) date) Artery Scan unknown) (unknown) (no (unknown) (unknown) This note may have (units (unknown) date) been all or partially unknown) generated using voice recognition (unknown) (no (unknown) (unknown) Tobacco + Substance (unit s (unknown) date) Use unknown) (unknown) (no (unknown) (unknown) Tobacco Status (units (unknown) date) unknown) (unknown) (no (unknown) (unknown) Total score: 18 (units (unknown) date) unknown) (unknown) (no (unknown) (unknown) Total score: 5 (units (unknown) date) unknown) (unknown) (no (unknown) (unknown) Traumatic brain (units (unknown) date) injury (2011) unknown) (unknown) (no (unknown) (unknown) UTI (urinary tract (units (unknown) date) infection) unknown) (unknown) (no (unknown) (unknown) Visit Reasons: ER f/u (un its (unknown) date) *lon unknown) (unknown) (no (unknown) (unknown) Vitals (units (unkno wn) date) unknown) (unknown) (no (unknown) (unknown) Weight 208 lb (units ( unknown) date) unknown) (unknown) (no (unknown) (unknown) [Rx Confirmed (units ( unknown) date) 01/25/22] unknown) (unknown) (no (unknown) (unknown) alcohol intake: never (un its (unknown) date) unknown) (unknown) (no (unknown) (unknown) amitriptyline 25 mg (units (unknown) date) tablet See Rx unknown) Instructions .Route .COMPLEX #90 tabs 06/04/21 (unknown) (no (unknown) (unknown) amlodipine (Norvasc) (uni ts (unknown) date) 5 mg PO DAILY 90 tabs unknown) 3RF I10 - Essential (primary) (unknown) (no (unknown) (unknown) amlodipine 5 mg (units (unknown) date) tablet (Norvasc) 5 mg unknown) PO DAILY #90 tabs 01/25/22 [Rx Confirmed (unknown) (no (unknown) (unknown) and colleagues, with (uni ts (unknown) date) an educational nan unknown) from [employer] (unknown) (no (unknown) (unknown) and your family down: (un its (unknown) date) nearly every day unknown) (unknown) (no (unknown) (unknown) angioedema (units (unk nown) date) unknown) (unknown) (no (unknown) (unknown) aspirin Allergy (units (unknown) date) (Severe, Verified unknown) 01/25/22 08:04) (unknown) (no (unknown) (unknown) cortisone [CORTISONE] (un its (unknown) date) Allergy (Mild, unknown) Verified 01/25/22 08:04) (unknown) (no (unknown) (unknown) creatinine ratio less (un its (unknown) date) than 30 mg/g unknown) (unknown) (no (unknown) (unknown) days (units (unkno wn) date) unknown) (unknown) (no (unknown) (unknown) filtration rate (GFR) (un its (unknown) date) between 30-44 unknown) mL/min/1.73 square meter and albuminuria (unknown) (no (unknown) (unknown) furosemide (Lasix) 40 (un its (unknown) date) mg PO BID 60 tabs 11RF unknown ) edema (unknown) (no (unknown) (unknown) furosemide 40 mg (units (unknown) date) tablet (Lasix) 40 mg unknown) PO BID edema #60 tabs 01/25/22 [Rx (unknown) (no (unknown) (unknown) have occurred. If [...] .COMPLEX #30 tabs (unknown) (no (unknown) (unknown) hypertension (units (u nknown) date) unknown) (unknown) (no (unknown) (unknown) internal bleeding (units (unknown) date) unknown) (unknown) (no (unknown) (unknown) isosorbide (units (unk nown) date) mononitrate 60 mg unknown) tablet,extended release 24 hr 60 mg PO DAILY (unknown) (no (unknown) (unknown) lisinopril Adverse (units (unknown) date) Reaction (Severe, unknown) Verified 01/25/22 08:04) (unknown) (no (unknown) (unknown) may occur. Occasional (un its (unknown) date) wrong-word or unknown) 'sound-alike' substitutions may have (unknown) (no (unknown) (unknown) minoxidil 2.5 mg (units (unknown) date) tablet See Rx unknown) Instructions .Route .COMPLEX #60 tabs 10/29/21 (unknown) (no (unknown) (unknown) mold [MOLD] Allergy (unit s (unknown) date) (Intermediate, unknown) Verified 01/25/22 08:04) (unknown) (no (unknown) (unknown) more than usual: (units (unknown) date) several days unknown) (unknown) (no (unknown) (unknown) occurred due to the (unit s (unknown) date) inherent limitations unknown) of voice recognition software. Please (unknown) (no (unknown) (unknown) opposite - being so (unit s (unknown) date) fidgety or restless unknown) that you have been moving around a lot (unknown) (no (unknown) (unknown) people?: somewhat (units (unknown) date) difficult unknown) (unknown) (no (unknown) (unknown) potassium chloride 20 (un its (unknown) date) mEq tablet,extended unknown) release(part/cryst) 20 meq PO DAILY (unknown) (no (unknown) (unknown) potassium chloride ER (un its (unknown) date) 20 mEq PO DAILY 30 unknown) tabs 11RF while on lasix (unknown) (no (unknown) (unknown) problems? (units (unkn own) date) unknown) (unknown) (no (unknown) (unknown) read the note (units ( unknown) date) carefully and unknown) recognize, using context, where these substitutions (unknown) (no (unknown) (unknown) rivaroxaban 20 mg (units (unknown) date) tablet (Xarelto) 20 mg unknown ) PO QPM #90 tabs 11/28/21 [Rx Confirmed (unknown) (no (unknown) (unknown) software. Although (units (unknown) date) every effort is made unknown) to edit content, paste worker errors (unknown) (no (unknown) (unknown) television: more than (un its (unknown) date) half the days unknown) (unknown) (no (unknown) (unknown) unspecified (units (un known) date) unknown) (unknown) (no (unknown) (unknown) way: several days (units (unknown) date) unknown) (unknown) (no (unknown) (unknown) while on lasix #30 (units (unknown) date) tabs 01/25/22 [Rx unknown) Confirmed 01/25/22] (unknown) (no (unknown) (unknown) you to do your work, (uni ts (unknown) date) take care of things at unknown ) home, or get along with other Result panel 295 (unknown) (no (unknown) (unknown) (no value) (units (unk nown) date) unknown) (unknown) (no (unknown) (unknown) (1) Benign essential (uni ts (unknown) date) HTN: unknown) (unknown) (no (unknown) (unknown) (2) COPD (chronic (units (unknown) date) obstructive pulmonary unknown) disease): (unknown) (no (unknown) (unknown) (3) Acute CHF: (units (unknown) date) unknown) (unknown) (no (unknown) (unknown) (4) 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 See unknown) instructions (unknown) (no (unknown) (unknown) -continue regular (units (unknown) date) weights, blood unknown) pressure checks. (unknown) (no (unknown) (unknown) -elevate legs, wear (unit s (unknown) date) compression socks more unknown ) regularly. (unknown) (no (unknown) (unknown) -follow-up 1 month (units (unknown) date) unknown) (unknown) (no (unknown) (unknown) -no soda (units (unkno wn) date) unknown) (unknown) (no (unknown) (unknown) -she has had previous (un its (unknown) date) carpal tunnel release unknown) on that side. If her symptoms (unknown) (no (unknown) (unknown) -start Spiriva. (units (unknown) date) unknown) (unknown) (no (unknown) (unknown) -we will get a (units (unknown) date) pulmonary function unknown) test to evaluate her lung functions. (unknown) (no (unknown) (unknown) [id number] (units (unkn own) date) unknown) (unknown) (no (unknown) (unknown) 03/30/21 [Rx (units (u nknown) date) Confirmed 01/25/22] unknown) (unknown) (no (unknown) (unknown) 08:14 (units (unkno wn) date) unknown) (unknown) (no (unknown) (unknown) 1. Little interest or (un its (unknown) date) pleasure in doing unknown) things: nearly every day (unknown) (no (unknown) (unknown) 02/11/4. Think she (units (unknown) date) likely has several unknown) things going on. She may have an acute (unknown) (no (unknown) (unknown) 01/24/22 [History (units (unknown) date) Confirmed 01/25/22] unknown) (unknown) (no (unknown) (unknown) 01/25/22 (units (unkno wn) date) unknown) (unknown) (no (unknown) (unknown) 01/25/22] (units (unkn own) date) unknown) (unknown) (no (unknown) (unknown) 2. Feeling down, (units (unknown) date) depressed, or unknown) hopeless: more than half the days (unknown) (no (unknown) (unknown) 3. Trouble falling or (un its (unknown) date) staying asleep, or unknown) sleeping too much: more than half the (unknown) (no (unknown) (unknown) 4. Feeling tired or (unit s (unknown) date) having little energy: unknown) nearly every day (unknown) (no (unknown) (unknown) 5. Poor appetite or (unit s (unknown) date) overeating: several unknown) days (unknown) (no (unknown) (unknown) 5. wear splint. (units (unknown) date) unknown) (unknown) (no (unknown) (unknown) 6. Feeling bad about (uni ts (unknown) date) yourself - or that you unknown ) are a failure or have let yourself (unknown) (no (unknown) (unknown) 7. Trouble (units (unk nown) date) concentrating on unknown) things, such as reading the newspaper or watching (unknown) (no (unknown) (unknown) 71 year old female (units (unknown) date) presents to clinic for unknown ) ER follow up. (unknown) (no (unknown) (unknown) 8. Moving or speaking (un its (unknown) date) so slowly that other unknown) people could have noticed? - Or the (unknown) (no (unknown) (unknown) 9. Thoughts that you (uni ts (unknown) date) would be better off unknown) or of hurting yourself in some (unknown) (no (unknown) (unknown) Age/Sex: 71 / F Date (uni ts (unknown) date) of Service: unknown) (unknown) (no (unknown) (unknown) Allergies (units (unkn own) date) unknown) (unknown) (no (unknown) (unknown) Allergies: Reviewed (unit s (unknown) date) unknown) (unknown) (no (unknown) (unknown) [place] [address] (unit s (unknown) date) unknown) (unknown) (no (unknown) (unknown) Assessment + Plan (units (unknown) date) unknown) (unknown) (no (unknown) (unknown) Attending Dr: Nora (units (unknown) date) Lorenza Baugh[place]aco unknown) (unknown) (no (unknown) (unknown) BP 152/98 H (units (un known) date) unknown) (unknown) (no (unknown) (unknown) PADRON TREES Allergy (unit s (unknown) date) (Intermediate, Uncoded unknown ) 01/25/22 08:04) (unknown) (no (unknown) (unknown) Benign essential HTN (uni ts (unknown) date) unknown) (unknown) (no (unknown) (unknown) Blood Pressure (units (unknown) date) Location Lt brachial unknown) (unknown) (no (unknown) (unknown) CARDIAC: Regular rate (un its (unknown) date) and rhythm. S1, S2 unknown) normal, no murmur.? Tr edema. (unknown) (no (unknown) (unknown) CHEST: Normal (units ( unknown) date) respiratory effort unknown) (unknown) (no (unknown) (unknown) COPD (chronic (units ( unknown) date) obstructive pulmonary unknown) disease) (unknown) (no (unknown) (unknown) CVA (cerebral (units ( unknown) date) vascular accident) unknown) (2006) (unknown) (no (unknown) (unknown) Chief Complaint: sob (uni ts (unknown) date) unknown) (unknown) (no (unknown) (unknown) Chronic kidney (units (unknown) date) disease (CKD) stage unknown) G3b/A1, moderately decreased glomerular (unknown) (no (unknown) (unknown) Confirmed 01/25/22] (unit s (unknown) date) unknown) (unknown) (no (unknown) (unknown) Constitutional: (units (unknown) date) Negative.? ? unknown) (unknown) (no (unknown) (unknown) : 1950 (units (unknown) date) Acct:[id number] unknown) (unknown) (no (unknown) (unknown) Depression/Bipolar (units (unknown) date) (159/160/161/169/177) unknown) (unknown) (no (unknown) (unknown) Dept at (units (unkno wn) date) . unknown) (unknown) (no (unknown) (unknown) Disabled Parking (units (unknown) date) Permit ##1 11/28/21 unknown) [Rx Confirmed 01/25/22] (unknown) (no (unknown) (unknown) Documented By: (units (unknown) date) Nora Britt 01/25/22 unknown) 0803 (unknown) (no (unknown) (unknown) Draft (units (unkno wn) date) unknown) (unknown) (no (unknown) (unknown) EYES: PERRL, EOMI and (un its (unknown) date) nonicteric unknown) (unknown) (no (unknown) (unknown) Elevated fasting (units (unknown) date) blood sugar unknown) (unknown) (no (unknown) (unknown) Endocrine: Negative.? (un its (unknown) date) unknown) (unknown) (no (unknown) (unknown) Essential (units (unkn own) date) hypertension unknown) (12/30/14) (unknown) (no (unknown) (unknown) Family Practice (units (unknown) date) Office Visit unknown) (unknown) (no (unknown) (unknown) [facility] (unknown) (no (unknown) (unknown) GENERAL: Well (units ( unknown) date) developed, well unknown) nourished.? Cooperative with exam.? Patient is in (unknown) (no (unknown) (unknown) Gastrointestinal: (units (unknown) date) Negative.? unknown) (unknown) (no (unknown) (unknown) Genitourinary: (units (unknown) date) Negative.? unknown) (unknown) (no (unknown) (unknown) HEAD: Atraumatic, (units (unknown) date) Normocephalic unknown) (unknown) (no (unknown) (unknown) Health Management [...] date) (2006) unknown) (unknown) (no (unknown) (unknown) I reviewed the (units (unknown) date) patient's Past Medical unknown ) History, Problem List, Medications and (unknown) (no (unknown) (unknown) IVH (intraventricular (un its (unknown) date) hemorrhage) (2006) unknown) (unknown) (no (unknown) (unknown) If score is 2 or (units (unknown) date) greater, continue unknown) (unknown) (no (unknown) (unknown) If you checked off (units (unknown) date) any problems, how unknown) difficult have these problems made it for (unknown) (no (unknown) (unknown) Inspection: (units (un known) date) non-tender. No atrophy unknown ) or thickening of the palmar fascia. (unknown) (no (unknown) (unknown) Intake Note: (units (u nknown) date) unknown) (unknown) (no (unknown) (unknown) Intake performed by: (uni ts (unknown) date) Milagros Zapata unknown) (unknown) (no (unknown) (unknown) Intake (units (unkno wn) date) unknown) (unknown) (no (unknown) (unknown) Intake- Clincial (units (unknown) date) Staff unknown) (unknown) (no (unknown) (unknown) Intraventricular (units (unknown) date) hemorrhage (-2006) unknown) (unknown) (no (unknown) (unknown) LUNGS: Clear all lung (un its (unknown) date) cooney, Bilaterally unknown) (unknown) (no (unknown) (unknown) Last Menstural Cycle (uni ts (unknown) date) + Details unknown) (unknown) (no (unknown) (unknown) Laterality: left (units (unknown) date) Qualified Code(s): unknown) G56.02 - Carpal tunnel syndrome, (unknown) (no (unknown) (unknown) Left wrist fracture (unit s (unknown) date) unknown) (unknown) (no (unknown) (unknown) Loc: [facility] (units (unkno wn) date) unknown) (unknown) (no (unknown) (unknown) Lt Hand: (units (unkno wn) date) unknown) (unknown) (no (unknown) (unknown) MUSKULOSKELETAL: (units (unknown) date) Normal gait. unknown) (unknown) (no (unknown) (unknown) Medical History (units (unknown) date) (Updated 01/25/22 @ unknown) 08:55 by Nora Britt DO) (unknown) (no (unknown) (unknown) Medications (units (un known) date) unknown) (unknown) (no (unknown) (unknown) Medications: (units (u nknown) date) Reconciled unknown) (unknown) (no (unknown) (unknown) Medications: (units (u nknown) date) unknown) (unknown) (no (unknown) (unknown) NASAL CONGESTION (units (unknown) date) unknown) (unknown) (no (unknown) (unknown) NECK: Full range of (unit s (unknown) date) motion, unknown) lymphadenopathy absent, supple (unknown) (no (unknown) (unknown) NEURO EXAM: Alert (units (unknown) date) unknown) (unknown) (no (unknown) (unknown) New (units (unkno wn) date) unknown) (unknown) (no (unknown) (unknown) Normal resisted wrist (un its (unknown) date) extension (radial unknown) nerve or C6 - C8 nerve roots). (unknown) (no (unknown) (unknown) Normal resisted wrist (un its (unknown) date) flexion (ulnar nerve unknown) C8 + T1 or median nerve C6 + C7). (unknown) (no (unknown) (unknown) Note (units (unkno wn) date) unknown) (unknown) (no (unknown) (unknown) Note: (units (unkno wn) date) unknown) (unknown) (no (unknown) (unknown) Notes (units (unkno wn) date) unknown) (unknown) (no (unknown) (unknown) OAK TREES Allergy (units (unknown) date) (Intermediate, Uncoded unknown ) 01/25/22 08:04) (unknown) (no (unknown) (unknown) Obesity (units (unkno wn) date) unknown) (unknown) (no (unknown) (unknown) Objective: (units (unk nown) date) unknown) (unknown) (no (unknown) (unknown) Obstructive sleep (units (unknown) date) apnea syndrome unknown) (12/30/14) (unknown) (no (unknown) (unknown) Orders: (units (unkno wn) date) unknown) (unknown) (no (unknown) (unknown) Osteoporosis, (units ( unknown) date) unspecified (12/18/10) unknown ) (unknown) (no (unknown) (unknown) Other Menstrual (units (unknown) date) Period: Surgical unknown) Menopause (unknown) (no (unknown) (unknown) Other and unspecified (un its (unknown) date) hyperlipidemia unknown) (unknown) (no (unknown) (unknown) Over the last 2 (units (unknown) date) weeks, how often have unknown) you been bothered by any of the following (unknown) (no (unknown) (unknown) Oxygen Delivery (units (unknown) date) Method room air unknown) (unknown) (no (unknown) (unknown) PFSH (units (unkno wn) date) unknown) (unknown) (no (unknown) (unknown) PHQ-2 (units (unkno wn) date) unknown) (unknown) (no (unknown) (unknown) PHQ-2/PHQ-9 (units (un known) date) unknown) (unknown) (no (unknown) (unknown) Patient went back to (uni ts (unknown) date) the ER for worsening unknown) shortness of breath, swelling. She (unknown) (no (unknown) (unknown) Patient: (units (unkno [...] date) unknown) (unknown) (no (unknown) (unknown) Pulse 66 (units (unkno wn) date) unknown) (unknown) (no (unknown) (unknown) Pulse Oximetry (%) 98 (un its (unknown) date) unknown) (unknown) (no (unknown) (unknown) Pulse Source Monitor (uni ts (unknown) date) unknown) (unknown) (no (unknown) (unknown) Qualifiers: (units (un known) date) unknown) (unknown) (no (unknown) (unknown) Quality Reporting (units (unknown) date) unknown) (unknown) (no (unknown) (unknown) Questionnaires (units (unknown) date) unknown) (unknown) (no (unknown) (unknown) Range of Motion: (units (unknown) date) Normal thumb unknown) opposition/flexion/ext ention. Normal finger (unknown) (no (unknown) (unknown) Reason For Visit (units (unknown) date) unknown) (unknown) (no (unknown) (unknown) Referral (units (unkno wn) date) Cardio/Pulmonary Rehab unknown ) J44.9 - Chronic obstructive pulmonary disease, (unknown) (no (unknown) (unknown) Referrals (units (unkn own) date) unknown) (unknown) (no (unknown) (unknown) Refilled (units (unkno wn) date) unknown) (unknown) (no (unknown) (unknown) Review of Systems: (units (unknown) date) unknown) (unknown) (no (unknown) (unknown) Ribs, multiple (units (unknown) date) fractures unknown) (unknown) (no (unknown) (unknown) SKIN:? No rashes on (unit s (unknown) date) face or arms. unknown) (unknown) (no (unknown) (unknown) Sebaceous cyst (units (unknown) date) unknown) (unknown) (no (unknown) (unknown) Sensory Testing: POS (uni ts (unknown) date) Tinel's. POS Phalen's. unknown ) (unknown) (no (unknown) (unknown) She is also getting (unit s (unknown) date) persistent numbness, unknown) tingling in all 5 fingers on the left (unknown) (no (unknown) (unknown) She may have some (units (unknown) date) underlying venous unknown) insufficiency issues as well. Discussed the (unknown) (no (unknown) (unknown) Signed By: (units (unk nown) date) unknown) (unknown) (no (unknown) (unknown) Smoking Status: (units (unknown) date) Current some day unknown) smoker (unknown) (no (unknown) (unknown) Social History (units (unknown) date) (including tobacco use unknown ) status). (unknown) (no (unknown) (unknown) Social History (units (unknown) date) unknown) (unknown) (no (unknown) (unknown) Source: Developed by (uni ts (unknown) date) Drs. Lencho Andrade unknown) Kasandra Fuentes, Darrin Elliott (unknown) (no (unknown) (unknown) Status post (units [...] unknown) date) unknown) (unknown) (no (unknown) (unknown) Subjective: (units (un known) date) unknown) (unknown) (no (unknown) (unknown) Superficial (units (un known) date) thrombophlebitis of unknown) right leg (unknown) (no (unknown) (unknown) Surgical History (units (unknown) date) (Reviewed 01/24/22 @ unknown) 10:06 by Chapo Dhaliwal DO) (unknown) (no (unknown) (unknown) Temp 97.5 F L (units ( unknown) date) unknown) (unknown) (no (unknown) (unknown) Temp Source Temporal (uni ts (unknown) date) Artery Scan unknown) (unknown) (no (unknown) (unknown) This note may have (units (unknown) date) been all or partially unknown) generated using voice recognition (unknown) (no (unknown) (unknown) Tobacco + Substance (unit s (unknown) date) Use unknown) (unknown) (no (unknown) (unknown) Tobacco Status (units (unknown) date) unknown) (unknown) (no (unknown) (unknown) Tobacco dependence (units (unknown) date) syndrome unknown) (unknown) (no (unknown) (unknown) Total score: 18 (units (unknown) date) unknown) (unknown) (no (unknown) (unknown) Total score: 5 (units (unknown) date) unknown) (unknown) (no (unknown) (unknown) Traumatic brain (units (unknown) date) injury (2010) unknown) (unknown) (no (unknown) (unknown) UTI (urinary tract (units (unknown) date) infection) unknown) (unknown) (no (unknown) (unknown) Visit Reasons: ER f/u (un its (unknown) date) *lon unknown) (unknown) (no (unknown) (unknown) Vital Signs: Reviewed (un its (unknown) date) unknown) (unknown) (no (unknown) (unknown) Vitals (units (unkno wn) date) unknown) (unknown) (no (unknown) (unknown) Voice recognition (units (unknown) date) software was used in unknown) the creation of this note. There may be (unknown) (no (unknown) (unknown) Weight 208 lb (units ( unknown) date) unknown) (unknown) (no (unknown) (unknown) [Rx Confirmed (units ( unknown) date) 01/25/22] unknown) (unknown) (no (unknown) (unknown) abduction/adduction. (uni ts (unknown) date) Normal wrist unknown) flexion/extension. Normal radio program checker strength. (unknown) (no (unknown) (unknown) alcohol intake: never (un its (unknown) date) unknown) (unknown) (no (unknown) (unknown) amitriptyline 25 mg (units (unknown) date) tablet See Rx unknown) Instructions .Route .COMPLEX #90 tabs 06/04/21 (unknown) (no (unknown) (unknown) amlodipine (Norvasc) (uni ts (unknown) date) 5 mg PO DAILY 90 tabs unknown) 3RF I10 - Essential (primary) (unknown) (no (unknown) (unknown) amlodipine 5 mg (units (unknown) date) tablet (Norvasc) 5 mg unknown) PO DAILY #90 tabs 01/25/22 [Rx Confirmed (unknown) (no (unknown) (unknown) and colleagues, with (uni ts (unknown) date) an educational nan unknown) from [employer]. (unknown) (no (unknown) (unknown) and your family down: (un its (unknown) date) nearly every day unknown) (unknown) (no (unknown) (unknown) angioedema (units (unk nown) date) unknown) (unknown) (no (unknown) (unknown) aspirin Allergy (units (unknown) date) (Severe, Verified unknown) 01/25/22 08:04) (unknown) (no (unknown) (unknown) breath more easily (units (unknown) date) with minimal activity. unknown ) No significant weight changes. (unknown) (no (unknown) (unknown) breath will continue (uni ts (unknown) date) to get worse and worse unknown ) and she may end up on oxygen. (unknown) (no (unknown) (unknown) cortisone [CORTISONE] (un its (unknown) date) Allergy (Mild, unknown) Verified 01/25/22 08:04) (unknown) (no (unknown) (unknown) creatinine ratio less (un its (unknown) date) than 30 mg/g unknown) (unknown) (no (unknown) (unknown) days (units (unkno wn) date) unknown) (unknown) (no (unknown) (unknown) filtration rate (GFR) (un its (unknown) date) between 30-44 unknown) mL/min/1.73 square meter and albuminuria (unknown) (no (unknown) (unknown) furosemide (Lasix) 40 (un its (unknown) date) mg PO BID 60 tabs 11RF unknown ) edema (unknown) (no (unknown) (unknown) furosemide 40 mg (units (unknown) date) tablet (Lasix) 40 mg unknown) PO BID edema #60 tabs 01/25/22 [Rx (unknown) (no (unknown) (unknown) hand. She is had (units (unknown) date) previous carpal unknown) tunnel. She has had previous carpal tunnel (unknown) (no (unknown) (unknown) have occurred. If [...] .COMPLEX #30 tabs (unknown) (no (unknown) (unknown) hypertension (units (u nknown) date) unknown) (unknown) (no (unknown) (unknown) importance of (units ( unknown) date) controlling all of her unknown ) underlying issues proactively to minimize (unknown) (no (unknown) (unknown) internal bleeding (units (unknown) date) unknown) (unknown) (no (unknown) (unknown) isosorbide (units (unk nown) date) mononitrate 60 mg unknown) tablet,extended release 24 hr 60 mg PO DAILY (unknown) (no (unknown) (unknown) left upper limb (units (unknown) date) unknown) (unknown) (no (unknown) (unknown) lisinopril Adverse (units (unknown) date) Reaction (Severe, unknown) Verified 01/25/22 08:04) (unknown) (no (unknown) (unknown) may occur. Occasional (un its (unknown) date) wrong-word or unknown) 'sound-alike' substitutions may have (unknown) (no (unknown) (unknown) minoxidil 2.5 mg (units (unknown) date) tablet See Rx unknown) Instructions .Route .COMPLEX #60 tabs 10/29/21 (unknown) (no (unknown) (unknown) mold [MOLD] Allergy (unit s (unknown) date) (Intermediate, unknown) Verified 01/25/22 08:04) (unknown) (no (unknown) (unknown) more than usual: (units (unknown) date) several days unknown) (unknown) (no (unknown) (unknown) no apparent distress. (un its (unknown) date) unknown) (unknown) (no (unknown) (unknown) occurred due to the (unit s (unknown) date) inherent limitations unknown) of voice recognition software. Please (unknown) (no (unknown) (unknown) on chronic heart (units (unknown) date) failure issue. I think unknown ) she also has an underlying COPD issue. (unknown) (no (unknown) (unknown) opposite - being so (unit s (unknown) date) fidgety or restless unknown) that you have been moving around a lot (unknown) (no (unknown) (unknown) people?: somewhat (units (unknown) date) difficult unknown) (unknown) (no (unknown) (unknown) persist while follow (uni ts (unknown) date) up with Orthopedics to unknown ) evaluate further (unknown) (no (unknown) (unknown) potassium chloride 20 (un its (unknown) date) mEq tablet,extended unknown) release(part/cryst) 20 meq PO DAILY (unknown) (no (unknown) (unknown) potassium chloride ER (un its (unknown) date) 20 mEq PO DAILY 30 unknown) tabs 11RF while on lasix (unknown) (no (unknown) (unknown) problems? (units (unkn own) date) unknown) (unknown) (no (unknown) (unknown) progression. Advised (uni ts (unknown) date) that she does not stop unknown ) smoking smoking her shortness of (unknown) (no (unknown) (unknown) read the note (units ( unknown) date) carefully and unknown) recognize, using context, where these substitutions (unknown) (no (unknown) (unknown) release. (units (unkno wn) date) unknown) (unknown) (no (unknown) (unknown) rivaroxaban 20 mg (units (unknown) date) tablet (Xarelto) 20 mg unknown ) PO QPM #90 tabs 11/28/21 [Rx Confirmed (unknown) (no (unknown) (unknown) she drinks at least a (un its (unknown) date) gal of soda a day. She unknown ) states that her legs are less (unknown) (no (unknown) (unknown) smoke. She denies any (un its (unknown) date) chest pains. She does unknown) feel like she is getting short of (unknown) (no (unknown) (unknown) software. Although (units (unknown) date) every effort is made unknown) to edit content, paste worker errors (unknown) (no (unknown) (unknown) swollen in the (units (unknown) date) morning and then get unknown) worse throughout the day. She continues to (unknown) (no (unknown) (unknown) television: more than (un its (unknown) date) half the days unknown) (unknown) (no (unknown) (unknown) typographical errors (uni ts (unknown) date) as a result. unknown) (unknown) (no (unknown) (unknown) unspecified (units (un known) date) unknown) (unknown) (no (unknown) (unknown) was diuresed and (units (unknown) date) eventually released. unknown) She continues to smoke. She states that (unknown) (no (unknown) (unknown) way: several days (units (unknown) date) unknown) (unknown) (no (unknown) (unknown) while on lasix #30 (units (unknown) date) tabs 01/25/22 [Rx unknown) Confirmed 01/25/22] (unknown) (no (unknown) (unknown) you to do your work, (uni ts (unknown) date) take care of things at unknown ) home, or get along with other Result panel 296 (unknown) (no (unknown) (unknown) (no value) (units (unk nown) date) unknown) (unknown) (no (unknown) (unknown) (1) Benign essential (uni ts (unknown) date) HTN: unknown) (unknown) (no (unknown) (unknown) (2) COPD (chronic (units (unknown) date) obstructive pulmonary unknown) disease): (unknown) (no (unknown) (unknown) (3) Acute CHF: (units (unknown) date) unknown) (unknown) (no (unknown) (unknown) (4) 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 See unknown) instructions (unknown) (no (unknown) (unknown) -continue regular (units (unknown) date) weights, blood unknown) pressure checks. (unknown) (no (unknown) (unknown) -elevate legs, wear (unit s (unknown) date) compression socks more unknown ) regularly. (unknown) (no (unknown) (unknown) -follow-up 1 month (units (unknown) date) unknown) (unknown) (no (unknown) (unknown) -no soda (units (unkno wn) date) unknown) (unknown) (no (unknown) (unknown) -she has had previous (un its (unknown) date) carpal tunnel release unknown) on that side. If her symptoms (unknown) (no (unknown) (unknown) -start Spiriva. (units (unknown) date) unknown) (unknown) (no (unknown) (unknown) -we will get a (units (unknown) date) pulmonary function unknown) test to evaluate her lung functions. (unknown) (no (unknown) (unknown) [id number] (units (unkn own) date) unknown) (unknown) (no (unknown) (unknown) 03/30/21 [Rx (units (u nknown) date) Confirmed 01/25/22] unknown) (unknown) (no (unknown) (unknown) 08:14 (units (unkno wn) date) unknown) (unknown) (no (unknown) (unknown) 1. Little interest or (un its (unknown) date) pleasure in doing unknown) things: nearly every day (unknown) (no (unknown) (unknown) 02/11//4. Think she (units (unknown) date) likely has several unknown) things going on. She may have an acute (unknown) (no (unknown) (unknown) 01/24/22 [History (units (unknown) date) Confirmed 01/25/22] unknown) (unknown) (no (unknown) (unknown) 01/25/22 1548 (units ( unknown) date) unknown) (unknown) (no (unknown) (unknown) 01/25/22 (units (unkno wn) date) unknown) (unknown) (no (unknown) (unknown) 01/25/22] (units (unkn own) date) unknown) (unknown) (no (unknown) (unknown) 2. Feeling down, (units (unknown) date) depressed, or unknown) hopeless: more than half the days (unknown) (no (unknown) (unknown) 3. Trouble falling or (un its (unknown) date) staying asleep, or unknown) sleeping too much: more than half the (unknown) (no (unknown) (unknown) 4. Feeling tired or (unit s (unknown) date) having little energy: unknown) nearly every day (unknown) (no (unknown) (unknown) 5. Poor appetite or (unit s (unknown) date) overeating: several unknown) days (unknown) (no (unknown) (unknown) 5. wear splint. (units (unknown) date) unknown) (unknown) (no (unknown) (unknown) 6. Feeling bad about (uni ts (unknown) date) yourself - or that you unknown ) are a failure or have let yourself (unknown) (no (unknown) (unknown) 7. Trouble (units (unk nown) date) concentrating on unknown) things, such as reading the newspaper or watching (unknown) (no (unknown) (unknown) 71 year old female (units (unknown) date) presents to clinic for unknown ) ER follow up. (unknown) (no (unknown) (unknown) 8. Moving or speaking (un its (unknown) date) so slowly that other unknown) people could have noticed? - Or the (unknown) (no (unknown) (unknown) 9. Thoughts that you (uni ts (unknown) date) would be better off unknown) or of hurting yourself in some (unknown) (no (unknown) (unknown) Age/Sex: 71 / F Date (uni ts (unknown) date) of Service: unknown) (unknown) (no (unknown) (unknown) Allergies (units (unkn own) date) unknown) (unknown) (no (unknown) (unknown) Allergies: Reviewed (unit s (unknown) date) unknown) (unknown) (no (unknown) (unknown) [place] [address] (unit s (unknown) date) unknown) (unknown) (no (unknown) (unknown) Assessment + Plan (units (unknown) date) unknown) (unknown) (no (unknown) (unknown) Attending Dr: Nora (units (unknown) date) Lorenza D.[place] unknown) (unknown) (no (unknown) (unknown) BP 152/98 H (units (un known) date) unknown) (unknown) (no (unknown) (unknown) PAD[place] TREES Allergy (unit s (unknown) date) (Intermediate, Uncoded unknown ) 01/25/22 08:04) (unknown) (no (unknown) (unknown) Benign essential HTN (uni ts (unknown) date) unknown) (unknown) (no (unknown) (unknown) Blood Pressure (units (unknown) date) Location Lt brachial unknown) (unknown) (no (unknown) (unknown) CARDIAC: Regular rate (un its (unknown) date) and rhythm. S1, S2 unknown) normal, no murmur.? Tr edema. (unknown) (no (unknown) (unknown) CHEST: Normal (units ( unknown) date) respiratory effort unknown) (unknown) (no (unknown) (unknown) COPD (chronic (units ( unknown) date) obstructive pulmonary unknown) disease) (unknown) (no (unknown) (unknown) COPD type: (units (unk nown) date) unspecified COPD unknown) Qualified Code(s): J44.9 - Chronic (unknown) (no (unknown) (unknown) CVA (cerebral (units ( unknown) date) vascular accident) unknown) (2006) (unknown) (no (unknown) (unknown) Chief Complaint: sob (uni ts (unknown) date) unknown) (unknown) (no (unknown) (unknown) Chronic kidney (units (unknown) date) disease (CKD) stage unknown) G3b/A1, moderately decreased glomerular (unknown) (no (unknown) (unknown) Confirmed 01/25/22] (unit s (unknown) date) unknown) (unknown) (no (unknown) (unknown) Constitutional: (units (unknown) date) Negative.? ? unknown) (unknown) (no (unknown) (unknown) : 1950 (units (unknown) date) Acct:[id number] unknown) (unknown) (no (unknown) (unknown) Depression/Bipolar (units (unknown) date) (159/160/161/169/177) unknown) (unknown) (no (unknown) (unknown) Dept at (units (unkno wn) date) . unknown) (unknown) (no (unknown) (unknown) Disabled Parking (units (unknown) date) Permit ##1 11/28/21 unknown) [Rx Confirmed 01/25/22] (unknown) (no (unknown) (unknown) Documented By: (units (unknown) date) Nora Britt 01/25/22 unknown) 0803 (unknown) (no (unknown) (unknown) EYES: PERRL, EOMI and (un its (unknown) date) nonicteric unknown) (unknown) (no (unknown) (unknown) Elevated fasting (units (unknown) date) blood sugar unknown) (unknown) (no (unknown) (unknown) Endocrine: Negative.? (un its (unknown) date) unknown) (unknown) (no (unknown) (unknown) Essential (units (unkn own) date) hypertension unknown) (12/30/14) (unknown) (no (unknown) (unknown) Family Practice (units (unknown) date) Office Visit unknown) (unknown) (no (unknown) (unknown) [facility]) (unknown) (no (unknown) (unknown) GENERAL: Well (units ( unknown) date) developed, well unknown) nourished.? Cooperative with exam.? Patient is in (unknown) (no (unknown) (unknown) Gastrointestinal: (units (unknown) date) Negative.? unknown) (unknown) (no (unknown) (unknown) Genitourinary: (units (unknown) date) Negative.? unknown) (unknown) (no (unknown) (unknown) HEAD: Atraumatic, (units (unknown) date) Normocephalic unknown) (unknown) (no (unknown) (unknown) Health Management (units (unknown) date) reviewed with patient: unknown ) Yes (unknown) (no (unknown) (unknown) Health Management (units (unknown) date) unknown) (unknown) (no (unknown) (unknown) Heart failure type: (unit s (unknown) date) systolic Qualified unknown) Code(s): I50.21 - Acute systolic (unknown) (no (unknown) (unknown) History of deep [...] date) (2006) unknown) (unknown) (no (unknown) (unknown) I reviewed the (units (unknown) date) patient's Past Medical unknown ) History, Problem List, Medications and (unknown) (no (unknown) (unknown) IVH (intraventricular (un its (unknown) date) hemorrhage) (2006) unknown) (unknown) (no (unknown) (unknown) If score is 2 or (units (unknown) date) greater, continue unknown) (unknown) (no (unknown) (unknown) If you checked off (units (unknown) date) any problems, how unknown) difficult have these problems made it for (unknown) (no (unknown) (unknown) Inspection: (units (un known) date) non-tender. No atrophy unknown ) or thickening of the palmar fascia. (unknown) (no (unknown) (unknown) Intake Note: (units (u nknown) date) unknown) (unknown) (no (unknown) (unknown) Intake performed by: (uni ts (unknown) date) Milagros Zapata unknown) (unknown) (no (unknown) (unknown) Intake (units (unkno wn) date) unknown) (unknown) (no (unknown) (unknown) Intake- Clincial (units (unknown) date) Staff unknown) (unknown) (no (unknown) (unknown) Intraventricular (units (unknown) date) hemorrhage (-2006) unknown) (unknown) (no (unknown) (unknown) LUNGS: Clear all lung (un its (unknown) date) cooney, Bilaterally unknown) (unknown) (no (unknown) (unknown) Last Menstural Cycle (uni ts (unknown) date) + Details unknown) (unknown) (no (unknown) (unknown) Laterality: left (units (unknown) date) Qualified Code(s): unknown) G56.02 - Carpal tunnel syndrome, (unknown) (no (unknown) (unknown) Left wrist fracture (unit s (unknown) date) unknown) (unknown) (no (unknown) (unknown) Loc: [facility] (units (unkno wn) date) unknown) (unknown) (no (unknown) (unknown) Lt Hand: (units (unkno wn) date) unknown) (unknown) (no (unknown) (unknown) MUSKULOSKELETAL: (units (unknown) date) Normal gait. unknown) (unknown) (no (unknown) (unknown) Medical History (units (unknown) date) (Updated 01/25/22 @ unknown) 15:47 by Nora Britt DO) (unknown) (no (unknown) (unknown) Medications (units (un known) date) unknown) (unknown) (no (unknown) (unknown) Medications: (units (u nknown) date) Reconciled unknown) (unknown) (no (unknown) (unknown) Medications: (units (u nknown) date) unknown) (unknown) (no (unknown) (unknown) NASAL CONGESTION (units (unknown) date) unknown) (unknown) (no (unknown) (unknown) NECK: Full range of (unit s (unknown) date) motion, unknown) lymphadenopathy absent, supple (unknown) (no (unknown) (unknown) NEURO EXAM: Alert (units (unknown) date) unknown) (unknown) (no (unknown) (unknown) New (units (unkno wn) date) unknown) (unknown) (no (unknown) (unknown) Normal resisted wrist (un its (unknown) date) extension (radial unknown) nerve or C6 - C8 nerve roots). (unknown) (no (unknown) (unknown) Normal resisted wrist (un its (unknown) date) flexion (ulnar nerve unknown) C8 + T1 or median nerve C6 + C7). (unknown) (no (unknown) (unknown) Note (units (unkno wn) date) unknown) (unknown) (no (unknown) (unknown) Note: (units (unkno wn) date) unknown) (unknown) (no (unknown) (unknown) Notes (units (unkno wn) date) unknown) (unknown) (no (unknown) (unknown) O[place] TREES Allergy (units (unknown) date) (Intermediate, Uncoded unknown ) 01/25/22 08:04) (unknown) (no (unknown) (unknown) Obesity (units (unkno wn) date) unknown) (unknown) (no (unknown) (unknown) Objective: (units (unk nown) date) unknown) (unknown) (no (unknown) (unknown) Obstructive sleep (units (unknown) date) apnea syndrome unknown) (12/30/14) (unknown) (no (unknown) (unknown) Orders: (units (unkno wn) date) unknown) (unknown) (no (unknown) (unknown) Osteoporosis, (units ( unknown) date) unspecified (12/18/10) unknown ) (unknown) (no (unknown) (unknown) Other Menstrual (units (unknown) date) Period: Surgical unknown) Menopause (unknown) (no (unknown) (unknown) Other and unspecified (un its (unknown) date) hyperlipidemia unknown) (unknown) (no (unknown) (unknown) Over the last 2 (units (unknown) date) weeks, how often have unknown) you been bothered by any of the following (unknown) (no (unknown) (unknown) Oxygen Delivery (units (unknown) date) Method room air unknown) (unknown) (no (unknown) (unknown) PFSH (units (unkno wn) date) unknown) (unknown) (no (unknown) (unknown) PHQ-2 (units (unkno wn) date) unknown) (unknown) (no (unknown) (unknown) PHQ-2/PHQ-9 (units (un known) date) unknown) (unknown) (no (unknown) (unknown) Patient went back to (uni ts (unknown) date) the ER for worsening unknown) shortness of breath, swelling. She (unknown) (no (unknown) (unknown) Patient: (units (unkno [...] date) unknown) (unknown) (no (unknown) (unknown) Pulse 66 (units (unkno wn) date) unknown) (unknown) (no (unknown) (unknown) Pulse Oximetry (%) 98 (un its (unknown) date) unknown) (unknown) (no (unknown) (unknown) Pulse Source Monitor (uni ts (unknown) date) unknown) (unknown) (no (unknown) (unknown) Qualifiers: (units (un known) date) unknown) (unknown) (no (unknown) (unknown) Quality Reporting (units (unknown) date) unknown) (unknown) (no (unknown) (unknown) Questionnaires (units (unknown) date) unknown) (unknown) (no (unknown) (unknown) Range of Motion: (units (unknown) date) Normal thumb unknown) opposition/flexion/ext ention. Normal finger (unknown) (no (unknown) (unknown) Reason For Visit (units (unknown) date) unknown) (unknown) (no (unknown) (unknown) Referral (units (unkno wn) date) Cardio/Pulmonary Rehab unknown ) J44.9 - Chronic obstructive pulmonary disease, (unknown) (no (unknown) (unknown) Referrals (units (unkn own) date) unknown) (unknown) (no (unknown) (unknown) Refilled (units (unkno wn) date) unknown) (unknown) (no (unknown) (unknown) Review of Systems: (units (unknown) date) unknown) (unknown) (no (unknown) (unknown) Ribs, multiple (units (unknown) date) fractures unknown) (unknown) (no (unknown) (unknown) SKIN:? No rashes on (unit s (unknown) date) face or arms. unknown) (unknown) (no (unknown) (unknown) Sebaceous cyst (units (unknown) date) unknown) (unknown) (no (unknown) (unknown) Sensory Testing: POS (uni ts (unknown) date) [employer]. unknown ) (unknown) (no (unknown) (unknown) She is also getting (unit s (unknown) date) persistent numbness, unknown) tingling in all 5 fingers on the left (unknown) (no (unknown) (unknown) She may have some (units (unknown) date) underlying venous unknown) insufficiency issues as well. Discussed the (unknown) (no (unknown) (unknown) Signed By: (units (unk nown) date) <Electronically signed unknown ) by Nora Britt> (unknown) (no (unknown) (unknown) Signed (units (unkno wn) date) unknown) (unknown) (no (unknown) (unknown) Smoking Status: (units (unknown) date) Current some day unknown) smoker (unknown) (no (unknown) (unknown) Social History (units (unknown) date) (including tobacco use unknown ) status). (unknown) (no (unknown) (unknown) Social History (units (unknown) date) unknown) (unknown) (no (unknown) (unknown) Source: Developed by (uni ts (unknown) date) Drs. Lencho Andrade unknown) Kasandra Fuentes, Darrin Elliott (unknown) (no (unknown) (unknown) Status post (units [...] unknown) date) unknown) (unknown) (no (unknown) (unknown) Subjective: (units (un known) date) unknown) (unknown) (no (unknown) (unknown) Superficial (units (un known) date) thrombophlebitis of unknown) right leg (unknown) (no (unknown) (unknown) Surgical History (units (unknown) date) (Reviewed 01/24/22 @ unknown) 10:06 by Chapo Dhaliwal DO) (unknown) (no (unknown) (unknown) Temp 97.5 F L (units ( unknown) date) unknown) (unknown) (no (unknown) (unknown) Temp Source Temporal (uni ts (unknown) date) Artery Scan unknown) (unknown) (no (unknown) (unknown) This note may have (units (unknown) date) been all or partially unknown) generated using voice recognition (unknown) (no (unknown) (unknown) Tobacco + Substance (unit s (unknown) date) Use unknown) (unknown) (no (unknown) (unknown) Tobacco Status (units (unknown) date) unknown) (unknown) (no (unknown) (unknown) Tobacco dependence (units (unknown) date) syndrome unknown) (unknown) (no (unknown) (unknown) Total score: 18 (units (unknown) date) unknown) (unknown) (no (unknown) (unknown) Total score: 5 (units (unknown) date) unknown) (unknown) (no (unknown) (unknown) Traumatic brain (units (unknown) date) injury (2010) unknown) (unknown) (no (unknown) (unknown) UTI (urinary tract (units (unknown) date) infection) unknown) (unknown) (no (unknown) (unknown) Visit Reasons: ER f/u (un its (unknown) date) *lon unknown) (unknown) (no (unknown) (unknown) Vital Signs: Reviewed (un its (unknown) date) unknown) (unknown) (no (unknown) (unknown) Vitals (units (unkno wn) date) unknown) (unknown) (no (unknown) (unknown) Voice recognition (units (unknown) date) software was used in unknown) the creation of this note. There may be (unknown) (no (unknown) (unknown) Weight 208 lb (units ( unknown) date) unknown) (unknown) (no (unknown) (unknown) [Rx Confirmed (units ( unknown) date) 01/25/22] unknown) (unknown) (no (unknown) (unknown) abduction/adduction. (uni ts (unknown) date) Normal wrist unknown) flexion/extension. Normal radio program checker strength. (unknown) (no (unknown) (unknown) alcohol intake: never (un its (unknown) date) unknown) (unknown) (no (unknown) (unknown) amitriptyline 25 mg (units (unknown) date) tablet See Rx unknown) Instructions .Route .COMPLEX #90 tabs 06/04/21 (unknown) (no (unknown) (unknown) amlodipine (Norvasc) (uni ts (unknown) date) 5 mg PO DAILY 90 tabs unknown) 3RF I10 - Essential (primary) (unknown) (no (unknown) (unknown) amlodipine 5 mg (units (unknown) date) tablet (Norvasc) 5 mg unknown) PO DAILY #90 tabs 01/25/22 [Rx Confirmed (unknown) (no (unknown) (unknown) and colleagues, with (uni ts (unknown) date) an educational nan unknown) from [employer]. (unknown) (no (unknown) (unknown) and your family down: (un its (unknown) date) nearly every day unknown) (unknown) (no (unknown) (unknown) angioedema (units (unk nown) date) unknown) (unknown) (no (unknown) (unknown) aspirin Allergy (units (unknown) date) (Severe, Verified unknown) 01/25/22 08:04) (unknown) (no (unknown) (unknown) breath more easily (units (unknown) date) with minimal activity. unknown ) No significant weight changes. (unknown) (no (unknown) (unknown) breath will continue (uni ts (unknown) date) to get worse and worse unknown ) and she may end up on oxygen. (unknown) (no (unknown) (unknown) cortisone [CORTISONE] (un its (unknown) date) Allergy (Mild, unknown) Verified 01/25/22 08:04) (unknown) (no (unknown) (unknown) creatinine ratio less (un its (unknown) date) than 30 mg/g unknown) (unknown) (no (unknown) (unknown) days (units (unkno wn) date) unknown) (unknown) (no (unknown) (unknown) filtration rate (GFR) (un its (unknown) date) between 30-44 unknown) mL/min/1.73 square meter and albuminuria (unknown) (no (unknown) (unknown) furosemide (Lasix) 40 (un its (unknown) date) mg PO BID 60 tabs 11RF unknown ) edema (unknown) (no (unknown) (unknown) furosemide 40 mg (units (unknown) date) tablet (Lasix) 40 mg unknown) PO BID edema #60 tabs 01/25/22 [Rx (unknown) (no (unknown) (unknown) hand. She is had (units (unknown) date) previous carpal unknown) tunnel. She has had previous carpal tunnel (unknown) (no (unknown) (unknown) have occurred. If [...] .COMPLEX #30 tabs (unknown) (no (unknown) (unknown) hypertension (units (u nknown) date) unknown) (unknown) (no (unknown) (unknown) importance of (units ( unknown) date) controlling all of her unknown ) underlying issues proactively to minimize (unknown) (no (unknown) (unknown) internal bleeding (units (unknown) date) unknown) (unknown) (no (unknown) (unknown) isosorbide (units (unk nown) date) mononitrate 60 mg unknown) tablet,extended release 24 hr 60 mg PO DAILY (unknown) (no (unknown) (unknown) left upper limb (units (unknown) date) unknown) (unknown) (no (unknown) (unknown) lisinopril Adverse (units (unknown) date) Reaction (Severe, unknown) Verified 01/25/22 08:04) (unknown) (no (unknown) (unknown) may occur. Occasional (un its (unknown) date) wrong-word or unknown) 'sound-alike' substitutions may have (unknown) (no (unknown) (unknown) minoxidil 2.5 mg (units (unknown) date) tablet See Rx unknown) Instructions .Route .COMPLEX #60 tabs 10/29/21 (unknown) (no (unknown) (unknown) mold [MOLD] Allergy (unit s (unknown) date) (Intermediate, unknown) Verified 01/25/22 08:04) (unknown) (no (unknown) (unknown) more than usual: (units (unknown) date) several days unknown) (unknown) (no (unknown) (unknown) no apparent distress. (un its (unknown) date) unknown) (unknown) (no (unknown) (unknown) obstructive pulmonary (un its (unknown) date) disease, unspecified unknown) (unknown) (no (unknown) (unknown) occurred due to the (unit s (unknown) date) inherent limitations unknown) of voice recognition software. Please (unknown) (no (unknown) (unknown) on chronic heart (units (unknown) date) failure issue. I think unknown ) she also has an underlying COPD issue. (unknown) (no (unknown) (unknown) opposite - being so (unit s (unknown) date) fidgety or restless unknown) that you have been moving around a lot (unknown) (no (unknown) (unknown) people?: somewhat (units (unknown) date) difficult unknown) (unknown) (no (unknown) (unknown) persist while follow (uni ts (unknown) date) up with Orthopedics to unknown ) evaluate further (unknown) (no (unknown) (unknown) potassium chloride 20 (un its (unknown) date) mEq tablet,extended unknown) release(part/cryst) 20 meq PO DAILY (unknown) (no (unknown) (unknown) potassium chloride ER (un its (unknown) date) 20 mEq PO DAILY 30 unknown) tabs 11RF while on lasix (unknown) (no (unknown) (unknown) problems? (units (unkn own) date) unknown) (unknown) (no (unknown) (unknown) progression. Advised (uni ts (unknown) date) that she does not stop unknown ) smoking smoking her shortness of (unknown) (no (unknown) (unknown) read the note (units ( unknown) date) carefully and unknown) recognize, using context, where these substitutions (unknown) (no (unknown) (unknown) release. (units (unkno wn) date) unknown) (unknown) (no (unknown) (unknown) rivaroxaban 20 mg (units (unknown) date) tablet (Xarelto) 20 mg unknown ) PO QPM #90 tabs 11/28/21 [Rx Confirmed (unknown) (no (unknown) (unknown) she drinks at least a (un its (unknown) date) gal of soda a day. She unknown ) states that her legs are less (unknown) (no (unknown) (unknown) smoke. She denies any (un its (unknown) date) chest pains. She does unknown) feel like she is getting short of (unknown) (no (unknown) (unknown) software. Although (units (unknown) date) every effort is made unknown) to edit content, paste worker errors (unknown) (no (unknown) (unknown) swollen in the (units (unknown) date) morning and then get unknown) worse throughout the day. She continues to (unknown) (no (unknown) (unknown) television: more than (un its (unknown) date) half the days unknown) (unknown) (no (unknown) (unknown) typographical errors (uni ts (unknown) date) as a result. unknown) (unknown) (no (unknown) (unknown) unspecified (units (un known) date) unknown) (unknown) (no (unknown) (unknown) was diuresed and (units (unknown) date) eventually released. unknown) She continues to smoke. She states that (unknown) (no (unknown) (unknown) way: several days (units (unknown) date) unknown) (unknown) (no (unknown) (unknown) while on lasix #30 (units (unknown) date) tabs 01/25/22 [Rx unknown) Confirmed 01/25/22] (unknown) (no (unknown) (unknown) you to do your work, (uni ts (unknown) date) take care of things at unknown ) home, or get along with other Social History date description facility 2021-11-28 00:00 Current some day smoker [facility] 2022-01-[facility]:00 [facility] sm[facility] 2022-01-24 00:00 [facility] Vital Signs date measurement value units 2021-11-28 00:00 BMI 31.4 kg/m2 2021-11-28 00:00 BP_diastolic 64 mmHg 2021-11-28 00:00 BP_systolic 110 mmHg 2021-11-28 00:00 heart_rate 64 /min 2021-11-28 00:00 height_metric 170.18 cm 2021-11-28 00:00 height_standard 67 in 2021-11-28 00:00 temperature_metric 36.56 C 2021-11-28 00:00 temperature_standard 97.8 F 2021-11-28 00:00 weight_metric 90.83 kg 2021-11-28 00:00 weight_standard 200.25 lb 2022-01-02 00:00 BP_diastolic 80 mmHg 2022-01-02 00:00 BP_systolic 150 mmHg 2022-01-02 00:00 heart_rate 57 /min 2022-01-02 00:00 o2_saturation 99 % 2022-01-02 00:00 temperature_metric 36.61 C 2022-01-02 00:00 temperature_standard 97.9 F 2022-01-02 00:00 weight_metric 97.52 kg 2022-01-02 00:00 weight_standard 214.99 lb 2022-01-24 00:00 BMI 33.6 kg/m2 2022-01-24 00:00 BP_diastolic 81 mmHg 2022-01-24 00:00 BP_systolic 220 mmHg 2022-01-24 00:00 heart_rate 55 /min 2022-01-24 00:00 height_metric 170.18 cm 2022-01-24 00:00 height_standard 67 in 2022-01-24 00:00 o2_saturation 98 % 2022-01-24 00:00 respiration_rate 18 /min 2022-01-24 00:00 temperature_metric 37.06 C 2022-01-24 00:00 temperature_standard 98.7 F 2022-01-24 00:00 weight_metric 97.52 kg 2022-01-24 00:00 weight_standard 214.99 lb 2022-01-25 00:00 BP_diastolic 98 mmHg 2022-01-25 00:00 BP_systolic 152 mmHg 2022-01-25 00:00 heart_rate 66 /min 2022-01-25 00:00 o2_saturation 98 % 2022-01-25 00:00 temperature_metric 36.39 C 2022-01-25 00:00 temperature_standard 97.5 F 2022-01-25 00:00 weight_metric 94.34 kg 2022-01-25 00:00 weight_standard 207.98 lb
[2022-02-18 12:27] LABS: INR 1.1 (0.8-1.2); PT - PROTHROMBIN TIME 12.6 secs (9.9-12.6)
[2022-02-18 12:32] LABS: ALBUMIN 4.1 g/dL (3.2-5.5); ALBUMIN/GLOBULIN RATIO 0.9 (1.0-2.2); BILIRUBIN,TOTAL 0.8 mg/dL (0.2-1.0); CALCIUM 9.7 mg/dL (8.5-10.3); CREATININE 1.6 mg/dL (0.4-1.0); MAGNESIUM 2.3 mg/dL (1.7-2.8); POTASSIUM 3.9 mmol/L (3.5-5.0); TOTAL PROTEIN 8.5 g/dL (6.7-8.2)
--- NOTE | 2022-02-18 12:34 | XRAY Report ---
PROCEDURE: Chest 1 View X-Ray INDICATIONS: dyspnea/falls TECHNIQUE: One view of the chest was acquired. COMPARISON: 01/04/2022 and 12/28/2021. FINDINGS: Surgical changes and devices: None. Lungs and pleura: No pleural effusions or pneumothorax. Lungs are clear. Mediastinum: Tortuous thoracic aorta with aortic arch calcification is seen. Heart size is enlarged. Bones and chest wall: No suspicious bony lesions. Overlying soft tissues appear unremarkable. IMPRESSION: No acute cardiopulmonary pathology. Reviewed by: Jeff Duarte MD on 02/18/2022 12:32 PM PST Approved by: Jeff Duarte MD on 02/18/2022 12:32 PM PST Station ID: [id number]
--- NOTE | 2022-02-18 13:27 | CT Report ---
PROCEDURE: HEAD WO INDICATIONS: falls with confusion TECHNIQUE: Noncontrast 4.5 mm thick angled axial sections acquired from the foramen magnum to the vertex. For r adiation dose reduction, the following was used: automated exposure control, adjustment of mA and/or kV according to patient size. COMPARISON: None. FINDINGS: Image quality: Excellent. The ventricular system and cortical sulci demonstrate atrophy, consistent for patient's stated age. There are areas of hypodensity in the periventricular and subcortical white matter. There is no acut e intra or extra-axial fluid collection. No acute hemorrhage, mass lesion or midline shift. Brainst em is unremarkable. Globes are symmetrical. Sinuses are aerated. Osseous structures are intact. IMPRESSION: 1. No acute intracranial process. 2. Moderate to severe atrophy and chronic microvascular ischemic changes. Reviewed by: Jazzy Tee MD on 02/18/2022 1:25 PM PST Approved by: Jazzy Tee MD on 02/18/2022 1:25 PM [facility] Station ID: [id number]
--- NOTE | 2022-02-18 14:09 | ED Physician Documentation ---
PD HPI SYNCOPE - Stated complaint Stated Complaint: LIGHT HEAD,DIZZY,CONFUSION - Chief complaint Chief Complaint: Neuro - History obtained from History obtained from: Patient, Caregiver - History of Present Illness Witnessed: Witnessed (her caregiver/friend described the patient seeming off balance walking today and yesterday in particular. Walks with a cane typically.), Unwitnessed Timing - onset: How many weeks ago (1) Duration: Other (the patient has had some vertigo, lightheadedness, and some sense of balance issues the past week. gradual onset with undulating degree of symptoms. No URI symptoms. No headache. No focal weakness nor loss of vision. She describes some blurring around visual field with clear in center.) Preceding symptoms: Vision changes (silhouette pattern blurring, clear central.), Light headed, Other (some vertigo as well.). No: Headache, Chest pain, Abdominal pain, Nausea / vomiting, Generalized weakness Associated symptoms: No: Headache, Chest pain, Palpitations Contributing factors: Recent med change (she was started on amlodipine 2 weeks ago for BP.). No: Decreased PO intake, Noxious stimulae Review of Systems Constitutional: denies: Fever Nose: denies: Rhinorrhea / runny nose, Congestion Throat: denies: Sore throat Respiratory: denies: Cough GI: denies: Vomiting, Diarrhea Neurologic: denies: Focal weakness, Numbness, Difficulty speaking, Headache, Head injury PD PAST MEDICAL HISTORY - Past Medical History Cardiovascular: Congestive heart failure, Deep vein thrombosis, Other (Factor V Leiden) - Present Medications Home Medications: Ambulatory Orders Medication Instructions Recorded Confirmed Furosemide [Lasix] 20 mg PO DAILY #7 tablet 12/28/21 HYDROcod/ACETAM 5/325 [[place] 5/325] 1 - 2 ea PO Q6H PRN #10 tablet 12/28/21 Furosemide [Lasix] 40 mg PO DAILY #20 tablet 01/04/22 Isosorbide Mononitrate [Isosorbide 60 mg PO DAILY #20 tab 01/04/22 Mononitrate ER] Potassium Chloride 10 meq PO DAILY #20 tab 01/04/22 - Allergies Allergies/Adverse Reactions: Allergies Allergy/AdvReac Type Severity Reaction Status Date / Time aspirin Allergy Unknown Verified 02/18/22 11:38 cortisone Allergy Hives Verified 01/04/22 12:56 lisinopril Allergy Unknown Verified 01/04/22 12:56 PD ED PE NORMAL - Vitals Vital signs reviewed: Yes - General General: Alert and oriented X 3, No acute distress, Well developed/nourished - HEENT HEENT: PERRL, EOMI (no nystagmus seen) - Neck Neck: Supple, no meningeal sign, No adenopathy, No bruit - Cardiac Cardiac: RRR, No murmur - Respiratory Respiratory: Clear bilaterally - Derm Derm: Normal color, Warm and dry - Neuro Neuro: Alert and oriented X 3, monitoring engineer 2-12 intact, No motor deficit, No sensory deficit, Normal speech, Other (watching her walk with her usual cane to the bathroom without ataxia nor balance problem noted by me. ) Eye Opening: Spontaneous Motor: Obeys Commands Verbal: Oriented GCS Score: 15 Results - Vitals Vitals: Vital Signs - 24 hr 02/18/22 02/18/22 02/18/22 11:30 11:38 13:38 Temperature 36.8 C 36.8 C Heart Rate 99 99 72 Heart Rate [ Sitting] Heart Rate [ Standing] Heart Rate [ Supine] Respiratory 14 14 16 Rate Blood Pressure 176/84 H 176/84 H 138/71 H Blood Pressure [Sitting] Blood Pressure [Standing] Blood Pressure [Supine] O2 Saturation 100 100 98 02/18/22 02/18/22 15:00 15:50 Temperature Heart Rate 74 Heart Rate [ 80 Sitting] Heart Rate [ 87 Standing] Heart Rate [ 76 Supine] Respiratory 14 Rate Blood Pressure 145/71 H Blood Pressure 137/101 H [Sitting] Blood Pressure 105/85 H [Standing] Blood Pressure 124/79 [Supine] O2 Saturation 94 Oxygen O2 Source Room air - EKG (time done) 11:43 Rate: Rate (enter#) (70) Rhythm: NSR [place]: Normal Intervals: Normal VA QRS: Normal Ischemia: Normal ST segments. No: ST elevation c/w ischemia, ST depression - Labs Labs: Laboratory Tests 02/18/22 02/18/22 02/18/22 12:11 12:11 12:11 WBC 7.2 RBC 5.70 H Hgb 15.7 Hct 49.6 H MCV 87.0 MCH 27.5 MCHC 31.7 L RDW 13.8 Plt Count 210 MPV 10.6 Neut # (Auto) 4.9 Lymph # (Auto) 1.5 [place] # (Auto) 0.4 Eos # (Auto) 0.2 Baso # (Auto) 0.1 Absolute Nucleated RBC 0.00 Nucleated RBC % 0.0 PT 12.6 INR 1.1 Sodium 138 Potassium 3.9 Chloride 101 Carbon Dioxide 28 Anion Gap 9.0 BUN 30 H Creatinine 1.6 H Estimated GFR (MDRD) 32 L Glucose 92 Calcium 9.7 Magnesium 2.3 Total Bilirubin 0.8 AST 18 ALT 15 Alkaline Phosphatase 74 B-Natriuretic Peptide Total Protein 8.5 H Albumin 4.1 Globulin 4.4 H Albumin/Globulin Ratio 0.9 L Lipase 81 H 02/18/22 12:11 WBC RBC Hgb Hct MCV MCH MCHC RDW Plt Count MPV Neut # (Auto) Lymph # (Auto) [place] # (Auto) Eos # (Auto) Baso # (Auto) Absolute Nucleated RBC Nucleated RBC % PT INR Sodium Potassium Chloride Carbon Dioxide Anion Gap BUN Creatinine Estimated GFR (MDRD) Glucose Calcium Magnesium Total Bilirubin AST ALT Alkaline Phosphatase B-Natriuretic Peptide 41 Total Protein Albumin Globulin Albumin/Globulin Ratio Lipase - Rads (name of study) head cT Radiology: Prelim report reviewed (no acute process), See rad report chest xray Radiology: Prelim report reviewed, EMP read indepedently (no acute process), See rad report PD Medical Decision Making - ED course Complexity details: reviewed results (ECG showing normal rhythm and no ischemia by my interpretation. Head CT appears normal and Radiology report says no acute. Labs ordered and reviewed with normal blood count and chemistry panel, so no cause of symptoms there such as anemia, hyponatremia, renal failure, etc. ), considered differential (caregiver/friend reports patient with some balance problems and complaints of dizziness and lightheadedness the past week. Gradual onset and undulating degree of it. ), d/w patient Reviewed Lab Results: Though head CT is not definitive for small infarct, I did not feel MRI was needed as I wanted to more exclude subdural hematoma, bleed, mass effect as causees of her symptoms. The timing of onset of the symptpoms is shortly after new medication of amlodipine, which per referencing [facility] program, does have the patient symptoms as common side effects. I feel it appropriate to stop the med an dsee if symptoms improve over the next few days/week. Social Determinants of Health: patient lives alone, but her friend/caregiver lives next house and sets up patients meds to be taken and check her often. The patient is given a walker to assist with balance and encouraged to use this rather than cane the next week in particular until feeling better. ED course: patient feeling okay here and her dizzy feeling did improve with Meclizine. Departure - Departure Disposition: 01 Home, Self Care Clinical Impression: Dizziness Medication side effects present Qualifiers: Encounter type: initial encounter Qualified Code(s): T50.905A - Adverse effect of unspecified drugs, medicaments and biological substances, initial encounter Condition: Stable Record reviewed to determine appropriate education?: Yes Instructions: ED Dizziness [facility] Follow-Up: STEFF BEASLEY DO [Primary Care Provider] - Comments: We did fairly extensive testing with blood test, EKG, chest x-ray and CT of the head. No obvious acute abnormalities are found with these. Given the timing of her new medication of amlodipine and then the onset of the dizzy and off-balance symptoms, I would believe the symptoms are a side effect of that medicine. I would have you stop the amlodipine and see if you improve over the next few days. Meanwhile would be worried about your balance and not wanting to fall. I would urge you to use a walker for the next week rather than a cane. Follow-up with your primary care regarding any substitutions needed for blood pressure and instead of the amlodipine. However I would not start any new medicines until your symptoms have improved so more likely next week. Recheck if not improving well over the next several days return sooner if worsening or new symptoms develop. Discharge Date/Time: 02/18/22 16:00
[2022-02-18] MEDS ORDERED: MECLIZINE 12.5 MG TABLET PO STA (14:31)
[2022-02-18 16:02] VITALS: BP 124/79
== END 2022-02-18 16:00 | disposition home or self-care (01) ==
LOC: ED 11:18
DX: R42 Dizziness and giddiness (principal); T46.1X5A Adverse effect of calcium-channel blockers, initial encounter; I10 Essential (primary) hypertension
CPT/HCPCS: 36415; 70450; 71045; 80053; 83690; 83735; 83880; 85025; 85610; 93005; 99284; A9270

== ENCOUNTER 2022-03-14 10:24 | Outpatient (CLI) | payer MEDICARE, OTHER | END 2022-03-14 10:25 | disposition critical access hospital (66) | LOC: EMS 10:24 | DX: R46.4 Slowness and poor responsiveness (principal) | CPT/HCPCS: A0425; A0427 ==

== ENCOUNTER 2022-03-14 10:45 | Inpatient (IN) | payer MEDICARE, OTHER ==
--- OUTSIDE RECORDS SUMMARY | 2022-03-14 11:07 | EXTERNAL MEDICAL SUMMARY RPT | Continuity of Care Document ---
:1950 Author Organization [facility] Address [address] [place] [address] Phone Care Team Providers Name Role Phone Carlitos Forrest Unavailable Unavailable Allergies and Intolerances date description facility type (no date) Mild [facility] (unknown) (no date) aspirin [facility] (unknown) (no date) cortisone [facility] (unknown) (no date) lisinopril [facility] (unknown) (no date) mold [facility] (unknown) Encounters No information. Functional Status No information. Immunizations No information. Medications date description facility 2022-02-26 00:00 Tiotropium Adrian [facility] 2022-01-02 00:00 Potassium Chloride [facility] 2022-01-25 00:00 Potassium Chloride [facility] 2022-01-25 00:00 Amlodipine [facility] 2022-02-22 00:00 Albuterol Sulfate [facility] 2022-01-02 00:00 Amlodipine [facility] 2022-02-12 00:00 Furosemide [facility] 2022-02-20 00:00 Furosemide [facility] 2022-02-22 00:00 Furosemide [facility] 2022-01-02 00:00 Furosemide [facility] 2022-01-25 00:00 Furosemide [facility] 2022-01-24 00:00 Isosorbide Mononitrate [facility] 2022-02-08 00:00 Isosorbide Mononitrate [facility] 2022-03-07 00:00 Isosorbide Mononitrate [facility] 2022-02-22 00:00 Tiotropium Adrian [facility] 2022-02-22 00:00 Meclizine [facility] 2022-03-11 00:00 Donepel [facility] Problems date description facility 2021-12-28 00:00 Patient left before treatment completed [facility] 2022-01-02 00:00 Benign essential hypertension [facility] 2022-01-02 10:06 Nicotine dependence, unspecified, uncom plicated [facility] 2022-01-02 10:06 Localized edema [facility] 2022-01-24 00:00 Acute congestive heart failure [facility] 2022-01-25 00:00 Tobacco dependence syndrome [facility] 2022-01-25 00:00 Chronic obstructive pulmonary disease [facility] Procedures date description facility 2022-01-24 00:00 X-ray of chest, single view [facility] Results/Labs test date author [...] Hospital unknown) Result panel 269 (unknown) (no date) (unknown[facility]) Result panel 270 (unknown) (no date) (unknown[facility]) Result panel 271 (unknown) (no date) (unknown[facility]) Result panel 272 (unknown) (no date) (unknown[facility]) Result panel 273 (unknown) (no date) (unknown[facility]) Result panel 274 (unknown) (no date) (unknown) [facility]) Result panel 275 (unknown) (no date) (unknown) [facility]) Result panel 276 (unknown) (no date) (unknown) [facility]) Result panel 277 (unknown) (no date) (unknown) [facility]) Result panel 278 (unknown) (no date) (unknown) [facility]) Result panel 279 (unknown) (no date) (unknown) [facility]) Result panel 280 (unknown) (no date) (unknown) [facility]) Result panel 281 (unknown) (no date) (unknown) [facility]) Result panel 282 (unknown) (no date) (unknown) [facility]) Result panel 283 (unknown) (no date) (unknown) [facility]) Result panel 284 (unknown) (no date) (unknown) [facility]) Result panel 285 (unknown) (no date) (unknown) [facility]) Result panel 286 (unknown) (no date) (unknown) [facility]) Result panel 287 (unknown) (no date) (unknown) [facility]) Result panel 288 (unknown) (no date) (unknown) [facility]) Result panel 289 (unknown) (no date) (unknown) [facility]) Result panel 290 (unknown) (no date) (unknown[facility]) Result panel 291 (unknown) (no date) (unknown) [facility]) Result panel 292 (unknown) (no date) (unknown) [facility]) Result panel 293 (unknown) (no date) (unknown) [facility]) Result panel 294 (unknown) (no date) (unknown) [facility]) Result panel 295 (unknown) (no date) (unknown) [facility]) Result panel 296 (unknown) (no date) (unknown) [facility]) Result panel 297 (unknown) (no date) (unknown) [facility]) Result panel 298 (unknown) (no date) (unknown) [facility]) Result panel 299 (unknown) (no date) (unknown[facility]) Result panel 300 (unknown) (no date) (unknown) [facility]) Result panel 301 (unknown) (no date) (unknown) [facility]) Result panel 302 (unknown) (no date) (unknown) [facility]) Result panel 303 (unknown) (no date) (unknown) [facility]) Result panel 304 (unknown) (no date) (unknown) [facility]) Result panel 305 (unknown) (no date) (unknown) [facility]) Result panel 306 (unknown) (no date) (unknown) [facility]) Result panel 307 (unknown) (no date) (unknown) [facility]) Result panel 308 (unknown) (no date) (unknown) [facility]) Result panel 309 (unknown) (no date) (unknown) [facility]) Result panel 310 (unknown) (no date) (unknown) [facility]) Result panel 311 (unknown) (no date) (unknown) [facility]) Result panel 312 (unknown) (no date) (unknown) [facility]) Result panel 313 (unknown) (no date) (unknown) [facility]) Result panel 314 (unknown) (no date) (unknown) [facility]) Result panel 315 (unknown) (no date) (unknown) [facility]) Result panel 316 (unknown) (no date) (unknown) [facility]) Result panel 317 (unknown) (no date) (unknown) [facility]) Result panel 318 (unknown) (no date) (unknown) [facility]) Result panel 319 (unknown) (no date) (unknown) [facility]) Result panel 320 (unknown) (no date) (unknown) [facility]) Result panel 321 (unknown) (no date) (unknown) [facility]) Result panel 322 (unknown) (no date) (unknown) [facility]) Result panel 323 (unknown) (no date) (unknown) [facility]) Result panel 324 (unknown) (no date) (unknown) [facility]) Result panel 325 (unknown) (no date) (unknown) [facility]) Result panel 326 (unknown) (no date) (unknown) [facility]) Result panel 327 (unknown) (no date) (unknown) [facility]) Result panel 328 (unknown) (no date) (unknown) [facility]) Result panel 329 (unknown) (no date) (unknown) [facility]) Result panel 330 (unknown) (no date) (unknown) [facility]) Result panel 331 (unknown) (no date) (unknown) [facility]) Result panel 332 (unknown) (no date) (unknown) [facility]) Result panel 333 (unknown) (no date) (unknown) [facility]) Result panel 334 (unknown) (no date) (unknown) [facility]) Result panel 335 (unknown) (no date) (unknown) [facility]) Result panel 336 (unknown) (no date) (unknown) [facility]) Result panel 337 (unknown) (no date) (unknown) [facility]) Result panel 338 (unknown) (no date) (unknown) [facility]) Result panel 339 (unknown) (no date) (unknown) [facility]) Result panel 340 (unknown) (no date) (unknown) [facility] Result panel 341 (unknown) (no (unknown) (unknown) (no value) (units (unk nown) date) unknown) (unknown) (no (unknown) (unknown) [id number] (units (unkn own) date) unknown) (unknown) (no [...] unknown) (unknown) (no (unknown) (unknown) [place] [address] (unit s (unknown) date) unknown) (unknown) (no [...] (unknown) (unknown) : 1950 (units (unknown) date) Acct:[id number] unknown) (unknown) (no (unknown) (unknown) Dept at [...] effort is made unknown) to edit content, customer success specialist errors Result panel 342 (unknown) (no (unknown) (unknown) (no value) (units (unk nown) date) unknown) (unknown) (no (unknown) (unknown) [id number] (units (unkn own) date) unknown) (unknown) (no [...] unknown) (unknown) (no (unknown) (unknown) [place] [address] (unit s (unknown) date) unknown) (unknown) (no (unknown) (unknown) Attending Dr: Nora (units (unknown) date) Lorenza D.OPaco unknown) (unknown) (no (unknown) (unknown) BP 150/80 [...] (unknown) (unknown) : 1950 (units (unknown) date) Acct:[id number] unknown) (unknown) (no (unknown) (unknown) Dept at [...] she went to the (units (unknown) date) [facility] on unknown) friday and they prescribed her a water pill. (unknown) (no (unknown) (unknown) software. Although (units (unknown) date) every effort is made unknown) to edit content, customer success specialist errors (unknown) (no (unknown) (unknown) that the patient is (unit s (unknown) date) starting to forget unknown) daily tasks and where things are located (unknown) (no (unknown) (unknown) the patient states (units (unknown) date) the edema has not unknown) improved. the patients caregiver states Result panel 343 (unknown) (no (unknown) (unknown) (no value) (units (unk nown) date) unknown) (unknown) (no (unknown) (unknown) [id number] (units (unkn own) date) unknown) (unknown) (no [...] own) date) unknown) (unknown) (no (unknown) (unknown) [place], [place] [address] (unit s (unknown) date) unknown) (unknown) (no (unknown) (unknown) Attending Dr: Nora (units (unknown) date) Lorenza Hoffman unknown) (unknown) (no (unknown) (unknown) BP 150/80 [...] (unknown) (unknown) : 1950 (units (unknown) date) Acct:[id number] unknown) (unknown) (no (unknown) (unknown) Dept at [...] she went to the (units (unknown) date) [facility] on unknown) friday and they prescribed her a water pill. (unknown) (no (unknown) (unknown) software. Although (units (unknown) date) every effort is made unknown) to edit content, customer success specialist errors (unknown) (no (unknown) (unknown) that the patient is (unit s (unknown) date) starting to forget unknown) daily tasks and where things are located (unknown) (no (unknown) (unknown) the patient states (units (unknown) date) the edema has not unknown) improved. the patients caregiver states Result panel 344 (unknown) (no (unknown) (unknown) (no value) (units [...] (unknown) date) unknown) (unknown) (no (unknown) (unknown) [id number] (units (unkn own) date) unknown) (unknown) (no [...] (unknown) date) unknown) (unknown) (no (unknown) (unknown) [place], [place] [address] (unit s (unknown) date) unknown) (unknown) (no (unknown) (unknown) Assessment + Plan (units (unknown) date) unknown) (unknown) (no (unknown) (unknown) Attending Dr: Nora (units (unknown) date) Lorenza D.OPaoc unknown) (unknown) (no (unknown) (unknown) BP 150/80 [...] accident) unknown) (2007) (unknown) (no (unknown) (unknown) Cardiovascular: (units (unknown) [...] (unknown) (unknown) : 1950 (units (unknown) date) Acct:[id number] unknown) (unknown) (no (unknown) (unknown) Dept at [...] she went to the (units (unknown) date) [facility] on unknown) friday and they prescribed her a water pill. (unknown) (no (unknown) (unknown) software. Although (units (unknown) date) every effort is made unknown) to edit content, customer success specialist errors (unknown) (no (unknown) (unknown) some increased [...] 01/02/22 [Rx unknown) Confirmed 01/02/22] Result panel 345 (unknown) (no date) (unknown) (unknown) (no value) (units (un known) unknown) (unknown) (no date) (unknown) (unknown) 01/24/22 (units (unkn own) unknown) (unknown) (no date) (unknown) (unknown) [id number] (units (unk nown) [address] unknown) (unknown) (no date) (unknown) (unknown) Accession (units (unk nown) Number: unknown) [id number] (unknown) (no date) (unknown) (unknown) Age/Sex: 71 / (units (unknown) F Date of unknown) Service: (unknown) (no date) (unknown) (unknown) [place] (units (unknown) [address] unknown) (unknown) (no date) (unknown) (unknown) Approved by: (units ( unknown) celeste Cardoza) Erick on 01/24/2022 at 10:38 (unknown) (no date) (unknown) (unknown) Bones and (units (unk nown) chest wall: No unknown) suspicious bony lesions. Overlying soft tissues (unknown) (no date) (unknown) (unknown) COMPARISON: [facility], CR, XR CHEST 1V, 05/06/2019, 13:12. (unknown) (no date) (unknown) (unknown) : (units (unkn own) 1950 unknown) Acct:[id number] (unknown) (no date) (unknown) (unknown) Dictated by: (units ( unknown) celeste Cardoza) Erick on 01/24/2022 at 10:37 (unknown) (no [...] or pneumothorax. (unknown) (no date) (unknown) (unknown) [id number] (units (un known) unknown) (unknown) (no date) (unknown) (unknown) Mediastinum: (units ( unknown) The heart is unknown) enlarged and there is pulmonary vascular (unknown) (no date) (unknown) (unknown) Ordering (units (unkn own) Provider: unknown) Chapo Dhaliwal D.O. (unknown) (no date) (unknown) (unknown) PROCEDURE: XR (units (unknown) CHEST 1V unknown) (unknown) (no date) (unknown) (unknown) Patient: (units (unkn own) Jesica Sepulveda unknown) D MR#: (unknown) (no date) (unknown) [...] (unknown) unremarkable. (units (unknown) unknown) Result panel 346 (unknown) (no (unknown) (unknown) (no value) (units (unk nown) date) unknown) (unknown) (no (unknown) (unknown) (DME) Disabled (units (unknown) date) Parking Permit unknown) (unknown) (no (unknown) (unknown) .COMPLEX #30 tabs (units (unknown) date) unknown) (unknown) (no (unknown) (unknown) .COMPLEX #60 tabs (units (unknown) date) unknown) (unknown) (no (unknown) (unknown) .COMPLEX #90 tabs (units (unknown) date) unknown) (unknown) (no (unknown) (unknown) [id number] (units (unkn own) date) unknown) (unknown) (no [...] (unknown) (unknown) : 1950 (units (unknown) date) Acct:[id number] unknown) (unknown) (no (unknown) (unknown) Date of [...] hemorrhage (-2006) unknown) (unknown) (no (unknown) (unknown) [facility] [address] (uni ts (unknown) date) [address] [place] [address], unknown ) [place] [address] (unknown) (no (unknown) (unknown) Left wrist fracture [...] filter (2007) unknown) (unknown) (no (unknown) (unknown) Previous Rx's [...] or exudate. Airway unknown) patent. Result panel 347 (unknown) (no date) (unknown) (unknown) 0.9 % [...] (unknown) 82.5 fl (unkn own) Result panel 348 (unknown) (no date) (unknown) (unknown) 1.0 (units unknown) (unknown) (unknown) (no date) (unknown) (unknown) 11.3 seconds (unkn own) (unknown) (no date) (unknown) (unknown) 24 seconds (unkn own) (unknown) (no date) (unknown) (unknown) 24 seconds (unkn own) Result panel 349 (unknown) (no date) (unknown) (unknown) 0.6 mg/dl [...] not ng/ml (unkn own) performed Result panel 350 (unknown) (no date) (unknown) (unknown) 0.031 ng/ml [...] not ng/ml (unkn own) performed Result panel 351 (unknown) (no (unknown) (unknown) (no value) (units [...] (unknown) date) unknown) (unknown) (no (unknown) (unknown) [id number] (units (unkn own) date) unknown) (unknown) (no [...] date) unknown) (unknown) (no (unknown) (unknown) [address] [place] [address] (units (unknown) date) unknown) (unknown) (no (unknown) [...] (unknown) (unknown) Accession Number: (units (unknown) date) [id number] ?? unknown) (unknown) (no (unknown) (unknown) Acct:[id number] (units (unknown) date) unknown) (unknown) (no (unknown) [...] Time (unknown) (no (unknown) (unknown) [place] [address] (unit s (unknown) date) unknown) (unknown) (no (unknown) (unknown) Approved by: Cris (units (unknown) date) Erick Schneider on unknown) 01/24/2022 at 10:38 ? (unknown) [...] accident) unknown) (2007) (unknown) (no (unknown) (unknown) Calcium (8.4-10.2) (units [...] (unknown) (unknown) : 1950 (units (unknown) date) Acct:[id number] unknown) (unknown) (no (unknown) (unknown) : 1950 [...] hemorrhage (-2006) unknown) (unknown) (no (unknown) (unknown) [facility] [address] (uni ts (unknown) date) [address] [place] [address] [place], unknown ) [place] [address] (unknown) (no (unknown) (unknown) [facility] (units (unknown) date) unknown) (unknown) [...] (unknown) Lymph # (Auto) (units (unknown) date) (7768-8800) /uL unknown) (unknown) (no (unknown) (unknown) Lymph # (Auto) 1400 (unit s (unknown) date) (4908-9296) /uL unknown) (unknown) (no (unknown) (unknown) Lymph [...] date) unknown) (unknown) (no (unknown) (unknown) MR#: [id number] (units (unknown) date) unknown) (unknown) (no (unknown) [...] Instructions Recorded unknown) (unknown) (no (unknown) (unknown) [place] # (Auto) (0-900) (un its (unknown) date) /uL unknown) (unknown) (no (unknown) (unknown) [place] # (Auto) 500 (units (unknown) date) (0-900) /uL unknown) (unknown) (no (unknown) (unknown) [place] % (Auto) (3-14) (uni ts (unknown) date) % unknown) (unknown) (no (unknown) (unknown) [place] % (Auto) 6.9 (units (unknown) date) (3-14) [...] Neut # (Auto) (units ( unknown) date) (3494-5160) /uL unknown) (unknown) (no (unknown) (unknown) Neut # (Auto) 5500 (units (unknown) date) (4621-6488) /uL unknown) (unknown) (no (unknown) (unknown) Neut [...] unknown ) other bothersome symptoms] Result panel 352 (unknown) (no (unknown) (unknown) (no value) (units (unk nown) date) unknown) (unknown) (no (unknown) (unknown) [id number] (units (unkn own) date) unknown) (unknown) (no [...] unknown) (unknown) (no (unknown) (unknown) [place] [address] (unit s (unknown) date) unknown) (unknown) (no (unknown) (unknown) Attending Dr: Nora (units (unknown) date) Lorenza BaughOPaco unknown) (unknown) (no (unknown) (unknown) PADRON [...] (unknown) (unknown) : 1950 (units (unknown) date) Acct:[id number] unknown) (unknown) (no (unknown) (unknown) Dept at [...] effort is made unknown) to edit content, customer success specialist errors Result panel 353 (unknown) (no (unknown) (unknown) (no value) (units (unk nown) date) unknown) (unknown) (no (unknown) (unknown) [id number] (units (unkn own) date) unknown) (unknown) (no [...] own) date) unknown) (unknown) (no (unknown) (unknown) [place] [address] (unit s (unknown) date) unknown) (unknown) (no [...] (unknown) (unknown) : 1950 (units (unknown) date) Acct:[id number] unknown) (unknown) (no (unknown) (unknown) Dept at [...] (unknown) Patient: (units (unkno wn) date) SepulvedaJesica D MR#: unknown ) M (unknown) (no [...] effort is made unknown) to edit content, customer success specialist errors Result panel 354 (unknown) (no (unknown) (unknown) (no value) (units (unk nown) date) unknown) (unknown) (no (unknown) (unknown) [id number] (units (unkn own) date) unknown) (unknown) (no [...] own) date) unknown) (unknown) (no (unknown) (unknown) [place] [address] (unit s (unknown) date) unknown) (unknown) (no [...] (unknown) (unknown) : 1950 (units (unknown) date) Acct:[id number] unknown) (unknown) (no (unknown) (unknown) Depression/Bipolar (units [...] (unknown) date) an educational nan unknown) from [employer]. (unknown) (no (unknown) (unknown) and your family [...] effort is made unknown) to edit content, customer success specialist errors (unknown) (no (unknown) (unknown) television: more [...] or get along with other Result panel 355 (unknown) (no (unknown) (unknown) (no value) (units (unk nown) date) unknown) (unknown) (no (unknown) (unknown) [id number] (units (unkn own) date) unknown) (unknown) (no [...] unknown) (unknown) (no (unknown) (unknown) [place] [address] (unit s (unknown) date) unknown) (unknown) (no [...] (unknown) (unknown) : 1950 (units (unknown) date) Acct:[id number] unknown) (unknown) (no (unknown) (unknown) Depression/Bipolar (units [...] ts (unknown) date) Drs. Lencho Andrade unknownKasandra Can Kurt [employer]enke (unknown) (no (unknown) (unknown) Status post (units [...] (unknown) date) an educational nan unknown) from [employer]. (unknown) (no (unknown) (unknown) and your family [...] effort is made unknown) to edit content, customer success specialist errors (unknown) (no (unknown) (unknown) television: more [...] or get along with other Result panel 356 (unknown) (no (unknown) (unknown) (no value) (units (unk nown) date) unknown) (unknown) (no (unknown) (unknown) (1) Benign essential (uni ts (unknown) date) HTN: unknown) (unknown) (no (unknown) (unknown) [id number] (units (unkn own) date) unknown) (unknown) (no [...] own) date) unknown) (unknown) (no (unknown) (unknown) [place] [address] (unit s (unknown) date) unknown) (unknown) (no [...] (unknown) (unknown) : 1950 (units (unknown) date) Acct:[id number] unknown) (unknown) (no (unknown) (unknown) Depression/Bipolar (units [...] (unknown) date) an educational nan unknown) from [employer] (unknown) (no (unknown) (unknown) and your [...] effort is made unknown) to edit content, customer success specialist errors (unknown) (no (unknown) (unknown) television: more [...] or get along with other Result panel 357 (unknown) (no (unknown) (unknown) (no value) (units (unk nown) date) unknown) (unknown) (no (unknown) (unknown) (1) Benign essential (uni ts (unknown) date) HTN: unknown) (unknown) (no (unknown) (unknown) [phone] (units (unkn own) date) unknown) (unknown) (no [...] own) date) unknown) (unknown) (no (unknown) (unknown) [place] [address] (unit s (unknown) date) unknown) (unknown) (no [...] (unknown) (unknown) : 1950 (units (unknown) date) Acct:[id number] unknown) (unknown) (no (unknown) (unknown) Depression/Bipolar (units [...] (unknown) date) an educational nan unknown) from [employer]. (unknown) (no (unknown) (unknown) and your family [...] effort is made unknown) to edit content, customer success specialist errors (unknown) (no (unknown) (unknown) television: more [...] or get along with other Result panel 358 (unknown) (no (unknown) (unknown) (no value) (units (unk nown) date) unknown) (unknown) (no (unknown) (unknown) (1) Benign essential (uni ts (unknown) date) HTN: unknown) (unknown) (no (unknown) (unknown) [id number] (units (unkn own) date) unknown) (unknown) (no [...] unknown) (unknown) (no (unknown) (unknown) HANNY Nixon [id number] (unit s (unknown) date) unknown) (unknown) (no (unknown) (unknown) Assessment + Plan (units (unknown) date) unknown) (unknown) (no (unknown) (unknown) Attending Dr: Nora (units (unknown) date) Lorenza DPacoOPaco unknown) (unknown) (no (unknown) (unknown) BP 152/98 [...] (unknown) (unknown) : 1950 (units (unknown) date) Acct:[id number] unknown) (unknown) (no (unknown) (unknown) Depression/Bipolar (units [...] (unknown) date) an educational nan unknown) from [facility]. (unknown) (no (unknown) (unknown) and your family [...] effort is made unknown) to edit content, customer success specialist errors (unknown) (no (unknown) (unknown) television: more [...] or get along with other Result panel 359 (unknown) (no (unknown) (unknown) (no value) (units [...] her lung functions. (unknown) (no (unknown) (unknown) [id number] (units (unkn own) date) unknown) (unknown) (no (unknown) (unknown) 03/30/21 [Rx (units (u nknown) date) Confirmed 01/25/22] unknown) (unknown) (no (unknown) (unknown) 08:14 (units (unkno wn) date) unknown) (unknown) (no (unknown) (unknown) 1. Little interest or (un its (unknown) date) pleasure in doing unknown) things: nearly every day (unknown) (no (unknown) (unknown) 02/11/3/4. Think she (units (unknown) date) likely has [...] (unknown) date) unknown) (unknown) (no (unknown) (unknown) [place] [address] (unit s (unknown) date) unknown) (unknown) (no [...] (unknown) (unknown) : 1950 (units (unknown) date) Acct:[id number] unknown) (unknown) (no (unknown) (unknown) Depression/Bipolar (units [...] (unknown) date) Normal wrist unknown) flexion/extension. Normal rn ed strength. (unknown) (no (unknown) (unknown) alcohol intake: [...] (unknown) date) an educational nan unknown) from [facility]. (unknown) (no (unknown) (unknown) and your family [...] effort is made unknown) to edit content, customer success specialist errors (unknown) (no (unknown) (unknown) swollen in [...] or get along with other Result panel 360 (unknown) (no (unknown) (unknown) (no value) (units [...] her lung functions. (unknown) (no (unknown) (unknown) [id number] (units (unkn own) date) unknown) (unknown) (no (unknown) (unknown) 03/30/21 [Rx (units (u nknown) date) Confirmed 01/25/22] unknown) (unknown) (no (unknown) (unknown) 08:14 (units (unkno wn) date) unknown) (unknown) (no (unknown) (unknown) 1. Little interest or (un its (unknown) date) pleasure in doing unknown) things: nearly every day (unknown) (no (unknown) (unknown) 02/11/3/4. Think she (units (unknown) date) likely has [...] (unknown) date) unknown) (unknown) (no (unknown) (unknown) [place] [address] (unit s (unknown) date) unknown) (unknown) (no (unknown) (unknown) Assessment + Plan (units (unknown) date) unknown) (unknown) (no (unknown) (unknown) Attending Dr: Nora (units (unknown) date) Lorenza Gardiner.OPaco unknown) (unknown) (no (unknown) (unknown) BP 152/98 [...] (unknown) (unknown) : 1950 (units (unknown) date) Acct:[id number] unknown) (unknown) (no (unknown) (unknown) Depression/Bipolar (units [...] (unknown) date) Normal wrist unknown) flexion/extension. Normal rn ed strength. (unknown) (no (unknown) (unknown) alcohol intake: [...] (unknown) date) an educational nan unknown) from [facility]. (unknown) (no (unknown) (unknown) and your family [...] effort is made unknown) to edit content, customer success specialist errors (unknown) (no (unknown) (unknown) swollen in [...] or get along with other Result panel 361 (unknown) (no (unknown) (unknown) (no value) (units (unk nown) date) unknown) (unknown) (no (unknown) (unknown) [id number] (units (unkn own) date) unknown) (unknown) (no (unknown) (unknown) 02/22/22 (units (unkno wn) date) unknown) (unknown) (no (unknown) (unknown) 71 year old female (units (unknown) date) presents to clinic to unknown) recheck BP and COPD. (unknown) (no (unknown) (unknown) Age/Sex: 71 / F Date (uni ts (unknown) date) of Service: unknown) (unknown) (no (unknown) (unknown) Allergies (units (unkn own) date) unknown) (unknown) (no (unknown) (unknown) HANNY Nixon [id number] (unit s (unknown) date) unknown) (unknown) (no (unknown) (unknown) Attending Dr: Nora (units (unknown) date) Lorenza D.OPaco unknown) (unknown) (no (unknown) (unknown) [place] Allergy (unit s (unknown) date) (Intermediate, Uncoded unknown ) 01/25/22 08:04) (unknown) (no (unknown) (unknown) Benign essential HTN (uni ts (unknown) date) unknown) (unknown) (no (unknown) (unknown) COPD (chronic (units ( unknown) date) obstructive pulmonary unknown) disease) (unknown) (no (unknown) (unknown) CVA (cerebral (units ( unknown) date) vascular accident) unknown) (2006) (unknown) (no (unknown) (unknown) Chronic kidney (units (unknown) date) disease (CKD) stage unknown) G3b/A1, moderately decreased glomerular (unknown) (no (unknown) (unknown) : 1950 (units (unknown) date) Acct:[id number] unknown) (unknown) (no (unknown) (unknown) Dept at (units (unkno wn) date) . 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 unknown) (unknown) (no (unknown) (unknown) Traumatic brain (units (unknown) date) injury (2010) unknown) (unknown) (no (unknown) (unknown) UTI (urinary tract (units (unknown) date) infection) unknown) (unknown) (no (unknown) (unknown) Visit Reasons: 1 (units (unknown) date) month recheck COPD AND unknown ) BP (unknown) (no (unknown) (unknown) alcohol intake: never [...] effort is made unknown) to edit content, customer success specialist errors Result panel 362 (unknown) (no (unknown) (unknown) (no value) (units (unk nown) date) unknown) (unknown) (no (unknown) (unknown) [id number] (units (unkn own) date) unknown) (unknown) (no (unknown) (unknown) 02/22/22 (units (unkno wn) date) unknown) (unknown) (no (unknown) (unknown) 09:06 (units (unkno wn) date) unknown) (unknown) (no (unknown) (unknown) 71 year old female (units (unknown) date) presents to clinic to unknown) recheck BP and COPD. the patient states (unknown) (no (unknown) (unknown) Age/Sex: 71 / F Date (uni ts (unknown) date) of Service: unknown) (unknown) (no (unknown) (unknown) Allergies (units (unkn own) date) unknown) (unknown) (no (unknown) (unknown) HANNY Nixon [id number] (unit s (unknown) date) unknown) (unknown) (no (unknown) (unknown) Attending Dr: Nora (units (unknown) date) Lorenza D.OPaco unknown) (unknown) (no (unknown) (unknown) BMI 33.8 (units (unkno wn) date) unknown) (unknown) (no (unknown) (unknown) BP 132/80 (units (unkn own) date) unknown) (unknown) (no (unknown) (unknown) [place] Allergy (unit s (unknown) date) (Intermediate, Uncoded unknown ) 01/25/22 08:04) (unknown) (no (unknown) (unknown) Benign essential HTN (uni ts (unknown) date) unknown) (unknown) (no (unknown) (unknown) Blood Pressure (units (unknown) date) Location Rt radial unknown) (unknown) (no (unknown) (unknown) COPD (chronic (units ( unknown) date) obstructive pulmonary unknown) disease) (unknown) (no (unknown) (unknown) CVA (cerebral (units ( unknown) date) vascular accident) unknown) (2006) (unknown) (no (unknown) (unknown) Chronic kidney (units (unknown) date) disease (CKD) stage unknown) G3b/A1, moderately decreased glomerular (unknown) (no (unknown) (unknown) : 1950 (units (unknown) date) Acct:[id number] unknown) (unknown) (no (unknown) (unknown) Dept at (units (unkno wn) date) . unknown) (unknown) (no (unknown) (unknown) Documented By: (units (unknown) date) Nora Britt 02/22/22 unknown) 0852 (unknown) (no (unknown) (unknown) Draft (units (unkno [...] (unknown) date) unknown) (unknown) (no (unknown) (unknown) Height 5 [...] (unknown) Medical History (units (unknown) date) (Updated 02/08/22 @ unknown) 00:00 by ) (unknown) (no (unknown) (unknown) NASAL CONGESTION (units [...] date) unknown) (unknown) (no (unknown) (unknown) Pulse 84 (units (unkno wn) date) unknown) (unknown) (no [...] Dhaliwal DO) (unknown) (no (unknown) (unknown) Temp 97.9 F [...] date) syndrome unknown) (unknown) (no (unknown) (unknown) Traumatic brain (units (unknown) date) injury (2010) unknown) (unknown) (no (unknown) (unknown) UTI (urinary tract (units (unknown) date) infection) unknown) (unknown) (no (unknown) (unknown) Visit Reasons: 1 (units (unknown) date) month recheck COPD AND unknown ) BP (unknown) (no (unknown) (unknown) Vitals (units (unkno wn) date) unknown) (unknown) (no (unknown) (unknown) Weight 216 lb (units ( unknown) date) unknown) (unknown) [...] meter and albuminuria (unknown) (no (unknown) (unknown) getting dizzy. (units (unknown) date) unknown) (unknown) (no (unknown) (unknown) have occurred. If [...] effort is made unknown) to edit content, customer success specialist errors (unknown) (no (unknown) (unknown) spiriva but the (units (unknown) date) pharmacy did not get unknown) the order. she states that she is still (unknown) (no (unknown) (unknown) that the ER gave her (uni ts (unknown) date) a walker for unknown) stability. they were supposd to prescribe her Result panel 363 (unknown) (no (unknown) (unknown) (no value) (units (unk nown) date) unknown) (unknown) (no (unknown) (unknown) - Essential (primary) (un its (unknown) date) hypertension unknown) (unknown) (no (unknown) (unknown) .Route .COMPLEX #30 (unit s (unknown) date) tabs 02/08/22 [Rx unknown) Confirmed 02/22/22] (unknown) (no (unknown) (unknown) [id number] (units (unkn own) date) unknown) (unknown) (no (unknown) (unknown) 02/22/22 (units (unkno wn) date) unknown) (unknown) (no (unknown) (unknown) 02/22/22] (units (unkn own) date) unknown) (unknown) (no (unknown) (unknown) 03/30/21 [Rx (units (u nknown) date) Confirmed 02/22/22] unknown) (unknown) (no (unknown) (unknown) 09:06 (units (unkno wn) date) unknown) (unknown) (no (unknown) (unknown) 71 year old female (units (unknown) date) presents to clinic to unknown) recheck BP and COPD. the patient states (unknown) (no (unknown) (unknown) Age/Sex: 71 / F Date (uni ts (unknown) date) of Service: unknown) (unknown) (no (unknown) (unknown) Allergies (units (unkn own) date) unknown) (unknown) (no (unknown) (unknown) [place] [address] (unit s (unknown) date) unknown) (unknown) (no (unknown) (unknown) Assessment + Plan (units (unknown) date) unknown) (unknown) (no (unknown) (unknown) Attending Dr: Nora (units (unknown) date) Lorenza DPacoOPaco unknown) (unknown) (no (unknown) (unknown) BMI 33.8 (units (unkno wn) date) unknown) (unknown) (no (unknown) (unknown) BP 132/80 (units (unkn own) date) unknown) (unknown) (no (unknown) (unknown) [place] Allergy (unit s (unknown) date) (Intermediate, Uncoded unknown ) 02/22/22 09:08) (unknown) (no (unknown) (unknown) Benign essential HTN (uni ts (unknown) date) unknown) (unknown) (no (unknown) (unknown) Blood Pressure (units (unknown) date) Location Rt radial unknown) (unknown) (no (unknown) (unknown) COPD (chronic (units ( unknown) date) obstructive pulmonary unknown) disease) (unknown) (no (unknown) (unknown) CVA (cerebral (units ( unknown) date) vascular accident) unknown) (2007) (unknown) (no (unknown) (unknown) Chronic kidney (units (unknown) date) disease (CKD) stage unknown) G3b/A1, moderately decreased glomerular (unknown) (no (unknown) (unknown) Confirmed 02/22/22] (unit s (unknown) date) unknown) (unknown) (no (unknown) (unknown) : 1950 (units (unknown) date) Acct:[id number] unknown) (unknown) (no (unknown) (unknown) Dept at (units (unkno wn) date) . unknown) (unknown) (no (unknown) (unknown) Disabled Parking (units (unknown) date) Permit ##1 11/28/21 unknown) [Rx Confirmed 02/22/22] (unknown) (no (unknown) (unknown) Discontinued Reason: (uni ts (unknown) date) Patient no longer unknown) taking 5 mg PO DAILY 90 tabs 3RF I10 (unknown) (no (unknown) (unknown) Discontinued (units (u nknown) date) unknown) (unknown) (no (unknown) (unknown) Documented By: (units (unknown) date) Nora Britt 02/22/22 unknown) 0852 (unknown) (no (unknown) (unknown) Draft (units (unkno [...] (unknown) date) unknown) (unknown) (no (unknown) (unknown) Height 5 [...] (unknown) Medical History (units (unknown) date) (Updated 02/08/22 @ unknown) 00:00 by ) (unknown) (no (unknown) (unknown) Medications (units (un known) date) unknown) (unknown) (no (unknown) (unknown) Medications: (units (u nknown) date) unknown) (unknown) (no (unknown) (unknown) NASAL CONGESTION (units (unknown) date) unknown) (unknown) (no (unknown) (unknown) [place] Allergy (units (unknown) date) (Intermediate, Uncoded unknown ) 02/22/22 09:08) (unknown) (no (unknown) (unknown) Obesity (units (unkno [...] (unknown) Patient: (units (unkno wn) date) Jesica Sepulevda MR#: unknown ) M (unknown) (no (unknown) [...] date) unknown) (unknown) (no (unknown) (unknown) Pulse 84 (units (unkno wn) date) unknown) (unknown) (no [...] Dhaliwal DO) (unknown) (no (unknown) (unknown) Temp 97.9 F [...] date) syndrome unknown) (unknown) (no (unknown) (unknown) Traumatic brain (units (unknown) date) injury (2010) unknown) (unknown) (no (unknown) (unknown) UTI (urinary tract (units (unknown) date) infection) unknown) (unknown) (no (unknown) (unknown) Visit Reasons: 1 (units (unknown) date) month recheck COPD AND unknown ) BP (unknown) (no (unknown) (unknown) Vitals (units (unkno wn) date) unknown) (unknown) (no (unknown) (unknown) Weight 216 lb (units ( unknown) date) unknown) (unknown) (no (unknown) (unknown) [Rx Confirmed (units ( unknown) date) 02/22/22] unknown) (unknown) (no (unknown) (unknown) alcohol intake: never (un its (unknown) date) unknown) (unknown) (no (unknown) (unknown) amitriptyline 25 mg (units (unknown) date) tablet See Rx unknown) Instructions .Route .COMPLEX #90 tabs 06/04/21 (unknown) (no (unknown) (unknown) amlodipine (Norvasc) (uni ts (unknown) date) unknown) (unknown) (no (unknown) (unknown) angioedema (units (unk nown) date) unknown) (unknown) (no (unknown) (unknown) aspirin Allergy (units (unknown) date) (Severe, Verified unknown) 02/22/22 09:08) (unknown) (no (unknown) (unknown) cortisone [CORTISONE] (un its (unknown) date) Allergy (Mild, unknown) Verified 02/22/22 09:08) (unknown) (no (unknown) (unknown) creatinine ratio less (un its (unknown) date) than 30 mg/g unknown) (unknown) (no (unknown) (unknown) filtration rate (GFR) (un its (unknown) date) between 30-44 unknown) mL/min/1.73 square meter and albuminuria (unknown) (no (unknown) (unknown) furosemide 20 mg (units (unknown) date) tablet See Rx unknown) Instructions .Route .COMPLEX #7 tabs 02/20/22 [Rx (unknown) (no (unknown) (unknown) getting dizzy. (units (unknown) date) unknown) (unknown) (no (unknown) (unknown) have occurred. If [...] 60 mg unknown) tablet,extended release 24 hr See Rx Instructions (unknown) (no (unknown) (unknown) lisinopril Adverse (units (unknown) date) Reaction (Severe, unknown) Verified 02/22/22 09:08) (unknown) (no (unknown) (unknown) may occur. Occasional (un its (unknown) date) wrong-word or unknown) 'sound-alike' substitutions may have (unknown) (no (unknown) (unknown) minoxidil 2.5 mg (units (unknown) date) tablet See Rx unknown) Instructions .Route .COMPLEX #60 tabs 10/29/21 (unknown) (no (unknown) (unknown) mold [MOLD] Allergy (unit s (unknown) date) (Intermediate, unknown) Verified 02/22/22 09:08) (unknown) (no (unknown) (unknown) occurred due to the (unit s (unknown) date) inherent limitations unknown) of voice recognition software. Please (unknown) (no (unknown) (unknown) potassium chloride 20 (un its (unknown) date) mEq tablet,extended unknown) release(part/cryst) 20 meq PO DAILY (unknown) (no (unknown) (unknown) read the note (units ( unknown) date) carefully and unknown) recognize, using context, where these substitutions (unknown) (no (unknown) (unknown) rivaroxaban 20 mg (units (unknown) date) tablet (Xarelto) 20 mg unknown ) PO QPM #90 tabs 11/28/21 [Rx Confirmed (unknown) (no (unknown) (unknown) software. Although (units (unknown) date) every effort is made unknown) to edit content, customer success specialist errors (unknown) (no (unknown) (unknown) spiriva but the (units (unknown) date) pharmacy did not get unknown) the order. she states that she is still (unknown) (no (unknown) (unknown) that the ER gave her (uni ts (unknown) date) a walker for unknown) stability. they were supposd to prescribe her (unknown) (no (unknown) (unknown) while on lasix #30 (units (unknown) date) tabs 01/25/22 [Rx unknown) Confirmed 02/22/22] Result panel 364 (unknown) (no (unknown) (unknown) (no value) (units (unk nown) date) unknown) (unknown) (no (unknown) (unknown) (1) Risk for falls: (unit s (unknown) date) unknown) (unknown) (no (unknown) (unknown) (2) COPD (chronic (units (unknown) date) obstructive pulmonary unknown) disease): (unknown) (no (unknown) (unknown) (3) Benign essential (uni ts (unknown) date) HTN: unknown) (unknown) (no (unknown) (unknown) (4) Vertigo: (units (u nknown) date) unknown) (unknown) (no (unknown) (unknown) (5) Dizziness: (units (unknown) date) unknown) (unknown) (no (unknown) (unknown) -Spiriva to control (unit s (unknown) date) COPD unknown) (unknown) (no (unknown) (unknown) -albuterol for (units (unknown) date) rescue. Discussed the unknown) goal is to find control medications where (unknown) (no (unknown) (unknown) -follow-up 1 month, (unit s (unknown) date) as needed any Concerns unknown ) (unknown) (no (unknown) (unknown) -increase fluid (units (unknown) date) intake unknown) (unknown) (no (unknown) (unknown) -she can use (units (u nknown) date) meclizine as needed unknown) for the vertigo only. Discussed side effect (unknown) (no (unknown) (unknown) -start physical (units (unknown) date) therapy for vestibular unknown ) rehab. Strength and balance training. (unknown) (no (unknown) (unknown) -use walker at all (units (unknown) date) times unknown) (unknown) (no (unknown) (unknown) .Route .COMPLEX #30 (unit s (unknown) date) tabs 02/08/22 [Rx unknown) Confirmed 02/22/22] (unknown) (no (unknown) (unknown) [id number] (units (unkn own) date) unknown) (unknown) (no (unknown) (unknown) 02/22/22 (units (unkno wn) date) unknown) (unknown) (no (unknown) (unknown) 02/22/22] (units (unkn own) date) unknown) (unknown) (no (unknown) (unknown) 03/30/21 [Rx (units (u nknown) date) Confirmed 02/22/22] unknown) (unknown) (no (unknown) (unknown) 09:06 (units (unkno wn) date) unknown) (unknown) (no (unknown) (unknown) . I think she (units (unknown) date) has a vertigo and unknown) dizziness component. (unknown) (no (unknown) (unknown) 2. Try to get her PFT (un its (unknown) date) again. unknown) (unknown) (no (unknown) (unknown) 3. Has been (units (un known) date) well-controlled at unknown) home. Her amlodipine was stopped. We will (unknown) (no (unknown) (unknown) 71 year old female (units (unknown) date) presents to clinic to unknown) recheck BP and COPD. the patient states (unknown) (no (unknown) (unknown) 90 inhalations 3RF (units (unknown) date) unknown) (unknown) (no (unknown) (unknown) Age/Sex: 71 / F Date (uni ts (unknown) date) of Service: unknown) (unknown) (no (unknown) (unknown) Allergies (units (unkn own) date) unknown) (unknown) (no (unknown) (unknown) Allergies: Reviewed (unit s (unknown) date) unknown) (unknown) (no (unknown) (unknown) [place] [address] (unit s (unknown) date) unknown) (unknown) (no (unknown) (unknown) Assessment + Plan (units (unknown) date) unknown) (unknown) (no (unknown) (unknown) Attending Dr: Nora (units (unknown) date) Lorenza Hoffman unknown) (unknown) (no (unknown) (unknown) BMI 33.8 (units (unkno wn) date) unknown) (unknown) (no (unknown) (unknown) BP 132/80 (units (unkn own) date) unknown) (unknown) (no (unknown) (unknown) [place] Allergy (unit s (unknown) date) (Intermediate, Uncoded unknown ) 02/22/22 09:08) (unknown) (no (unknown) (unknown) Benign essential HTN (uni ts (unknown) date) unknown) (unknown) (no (unknown) (unknown) Blood Pressure (units (unknown) date) Location Rt radial unknown) (unknown) (no (unknown) (unknown) CHEST: Normal (units [...] (unknown) (unknown) Chief Complaint: (units (unknown) date) Dizziness unknown) (unknown) (no (unknown) (unknown) Chronic kidney (units (unknown) date) disease (CKD) stage unknown) G3b/A1, moderately decreased glomerular (unknown) (no (unknown) (unknown) Confirmed 02/22/22] (unit s (unknown) date) unknown) (unknown) (no (unknown) (unknown) Constitutional: (units (unknown) date) Negative.? unknown) (unknown) (no (unknown) (unknown) : 1950 (units (unknown) date) Acct:[id number] unknown) (unknown) (no (unknown) (unknown) Dept at (units (unkno wn) date) . unknown) (unknown) (no (unknown) (unknown) Disabled Parking (units (unknown) date) Permit ##1 11/28/21 unknown) [Rx Confirmed 02/22/22] (unknown) (no (unknown) (unknown) Documented By: (units (unknown) date) Nora Britt 02/22/22 unknown) 0852 (unknown) (no (unknown) (unknown) Draft (units (unkno [...] date) Normocephalic unknown) (unknown) (no (unknown) (unknown) HandiHaler) 1 cap (units (unknown) date) inhalation DAILY #90 unknown) inhalations 02/22/22 [Rx Confirmed (unknown) (no (unknown) (unknown) Health Management (units (unknown) date) reviewed with patient: unknown ) Yes (unknown) (no (unknown) (unknown) Health Management (units (unknown) date) unknown) (unknown) (no (unknown) (unknown) Height 5 [...] date) (2007) unknown) (unknown) (no (unknown) (unknown) I reviewed [...] (unknown) Medical History (units (unknown) date) (Updated 02/08/22 @ unknown) 00:00 by ) (unknown) (no (unknown) (unknown) Medications (units (un [...] x 3.? unknown) (unknown) (no (unknown) (unknown) New (units (unkno wn) date) unknown) (unknown) (no (unknown) (unknown) Note (units (unkno wn) date) unknown) (unknown) (no (unknown) (unknown) Note: (units (unkno wn) date) unknown) (unknown) (no (unknown) (unknown) Notes (units (unkno wn) date) unknown) (unknown) (no (unknown) (unknown) [place] Allergy (units (unknown) date) (Intermediate, Uncoded unknown ) 02/22/22 09:08) (unknown) (no (unknown) (unknown) Obesity (units (unkno [...] wn) date) unknown) (unknown) (no (unknown) (unknown) PRN shortness of (units (unknown) date) breath or wheezing unknown) #8.5 grams 02/22/22 [Rx Confirmed 02/22/22] (unknown) (no (unknown) (unknown) PSYCH: judgement (units (unknown) date) normal, orientation unknown) normal, affect/mood normal and memory (unknown) (no (unknown) (unknown) Patient states that (unit s (unknown) date) she is had some unknown) episodes where she feels unsteady when she (unknown) (no (unknown) (unknown) Patient: (units (unkno [...] date) unknown) (unknown) (no (unknown) (unknown) Pulse 84 (units (unkno wn) date) unknown) (unknown) (no (unknown) (unknown) Pulse Oximetry (%) 98 (un its (unknown) date) unknown) (unknown) (no (unknown) (unknown) Pulse Source Monitor (uni ts (unknown) date) unknown) (unknown) (no (unknown) (unknown) Qualifiers: (units (un known) date) unknown) (unknown) (no (unknown) (unknown) Reason For Visit (units (unknown) date) unknown) (unknown) (no (unknown) (unknown) Referral Physical (units (unknown) date) Therapy R42 - unknown) Dizziness and giddiness, Z91.81 - History of (unknown) (no (unknown) (unknown) Referrals (units (unkn own) date) unknown) (unknown) (no (unknown) (unknown) Review [...] (unknown) date) unknown) (unknown) (no (unknown) (unknown) Spiriva or the (units (unknown) date) pulmonary function unknown) test we discussed last visit. (unknown) (no (unknown) (unknown) Status post (units [...] Dhaliwal DO) (unknown) (no (unknown) (unknown) Temp 97.9 F [...] date) syndrome unknown) (unknown) (no (unknown) (unknown) Traumatic brain (units (unknown) date) injury (2010) unknown) (unknown) (no (unknown) (unknown) UTI (urinary tract (units (unknown) date) infection) unknown) (unknown) (no (unknown) (unknown) Visit Reasons: 1 (units (unknown) date) month recheck COPD AND unknown ) BP (unknown) (no (unknown) (unknown) Vital Signs: Reviewed (un its (unknown) date) unknown) (unknown) (no (unknown) (unknown) Vitals (units (unkno wn) date) unknown) (unknown) (no (unknown) (unknown) Voice recognition (units (unknown) date) software was used in unknown) the creation of this note. There may be (unknown) (no (unknown) (unknown) Weight 216 lb (units ( unknown) date) unknown) (unknown) (no (unknown) (unknown) [Rx Confirmed (units ( unknown) date) 02/22/22] unknown) (unknown) (no (unknown) (unknown) albuterol sulfate 90 (uni ts (unknown) date) mcg/actuation 1 - 2 unknown) inhalations inhalation Q4-6H PRN 8.5 (unknown) (no (unknown) (unknown) albuterol sulfate 90 (uni ts (unknown) date) mcg/actuation aerosol unknown) inhaler 1 - 2 inh inhalation Q4-6H (unknown) (no (unknown) (unknown) alcohol intake: never (un its (unknown) date) unknown) (unknown) (no (unknown) (unknown) amitriptyline 25 mg (units (unknown) date) tablet See Rx unknown) Instructions .Route .COMPLEX #90 tabs 06/04/21 (unknown) (no (unknown) (unknown) angioedema (units (unk nown) date) unknown) (unknown) (no (unknown) (unknown) aspirin Allergy (units (unknown) date) (Severe, Verified unknown) 02/22/22 09:08) (unknown) (no (unknown) (unknown) consistently now. She (un its (unknown) date) continues to smoke. unknown) Her diet has not been ideal. She (unknown) (no (unknown) (unknown) continue to monitor. (uni ts (unknown) date) unknown) (unknown) (no (unknown) (unknown) cortisone [CORTISONE] (un its (unknown) date) Allergy (Mild, unknown) Verified 02/22/22 09:08) (unknown) (no (unknown) (unknown) creatinine ratio less (un its (unknown) date) than 30 mg/g unknown) (unknown) (no (unknown) (unknown) falling (units (unkno wn) date) unknown) (unknown) (no (unknown) (unknown) filtration rate (GFR) (un its (unknown) date) between 30-44 unknown) mL/min/1.73 square meter and albuminuria (unknown) (no (unknown) (unknown) furosemide 20 mg (units (unknown) date) tablet See Rx unknown) Instructions .Route .COMPLEX #7 tabs 02/20/22 [Rx (unknown) (no (unknown) (unknown) getting dizzy. (units (unknown) date) unknown) (unknown) (no (unknown) (unknown) grams 11RF shortness (uni ts (unknown) date) of breath or wheezing unknown) (unknown) (no (unknown) (unknown) has gained some (units (unknown) date) weight since our last unknown) visit. No significant leg swelling, chest (unknown) (no (unknown) (unknown) have occurred. If (units (unknown) date) there are any unknown) questions, please contact the Medical Records (unknown) (no (unknown) (unknown) have these episodes. (uni ts (unknown) date) She is afraid of unknown) falling and is using a walker more (unknown) (no (unknown) (unknown) hives (units (unkno [...] 60 mg unknown) tablet,extended release 24 hr See Rx Instructions (unknown) (no (unknown) (unknown) lisinopril Adverse (units (unknown) date) Reaction (Severe, unknown) Verified 02/22/22 09:08) (unknown) (no (unknown) (unknown) may occur. Occasional (un its (unknown) date) wrong-word or unknown) 'sound-alike' substitutions may have (unknown) (no (unknown) (unknown) meclizine 25 mg PO (units (unknown) date) DAILY PRN 30 tabs 1RF unknown) vertigo (unknown) (no (unknown) (unknown) meclizine 25 mg (units (unknown) date) tablet 25 mg PO DAILY unknown) PRN vertigo #30 tabs 02/22/22 [Rx (unknown) (no (unknown) (unknown) minoxidil 2.5 mg (units (unknown) date) tablet See Rx unknown) Instructions .Route .COMPLEX #60 tabs 10/29/21 (unknown) (no (unknown) (unknown) mold [MOLD] Allergy (unit s (unknown) date) (Intermediate, unknown) Verified 02/22/22 09:08) (unknown) (no (unknown) (unknown) no apparent distress. (un its (unknown) date) unknown) (unknown) (no (unknown) (unknown) normal (units (unkno wn) date) unknown) (unknown) (no (unknown) (unknown) obstructive pulmonary (un its (unknown) date) disease, unspecified unknown) (unknown) (no (unknown) (unknown) occurred due to the (unit s (unknown) date) inherent limitations unknown) of voice recognition software. Please (unknown) (no (unknown) (unknown) pains. She continues (uni ts (unknown) date) to be short of breath unknown) and wheezing. She did not get the (unknown) (no (unknown) (unknown) positions. She was (units (unknown) date) seen in the emergency unknown) department and her amlodipine was (unknown) (no (unknown) (unknown) potassium chloride 20 (un its (unknown) date) mEq tablet,extended unknown) release(part/cryst) 20 meq PO DAILY (unknown) (no (unknown) (unknown) profile. (units (unkno wn) date) unknown) (unknown) (no (unknown) (unknown) puncture 1 cap using (uni ts (unknown) date) device; one dose = 2 unknown) inhalations 1 cap inhalation DAILY (unknown) (no (unknown) (unknown) read the note (units ( unknown) date) carefully and unknown) recognize, using context, where these substitutions (unknown) (no (unknown) (unknown) rivaroxaban 20 mg (units (unknown) date) tablet (Xarelto) 20 mg unknown ) PO QPM #90 tabs 11/28/21 [Rx Confirmed (unknown) (no (unknown) (unknown) she has to use her (units (unknown) date) albuterol very unknown) infrequently. (unknown) (no (unknown) (unknown) software. Although (units (unknown) date) every effort is made unknown) to edit content, customer success specialist errors (unknown) (no (unknown) (unknown) spiriva but the (units (unknown) date) pharmacy did not get unknown) the order. she states that she is still (unknown) (no (unknown) (unknown) stands up quickly she (un its (unknown) date) also has episodes unknown) where the room spins when she changes (unknown) (no (unknown) (unknown) stopped. Her blood (units (unknown) date) pressure has been unknown) well-controlled at home. She continues to (unknown) (no (unknown) (unknown) that the ER gave her (uni ts (unknown) date) a walker for unknown) stability. they were supposd to prescribe her (unknown) (no (unknown) (unknown) tiotropium bromide (units (unknown) date) (Spiriva with unknown) HandiHaler) (unknown) (no (unknown) (unknown) tiotropium bromide 18 (un its (unknown) date) mcg capsule with unknown) inhalation device (Spiriva with (unknown) (no (unknown) (unknown) typographical errors (uni ts (unknown) date) as a result. unknown) (unknown) (no (unknown) (unknown) while on lasix #30 (units (unknown) date) tabs 01/25/22 [Rx unknown) Confirmed 02/22/22] Result panel 365 (unknown) (no (unknown) (unknown) (no value) (units (unk nown) date) unknown) (unknown) (no (unknown) (unknown) (1) Risk for falls: (unit s (unknown) date) unknown) (unknown) (no (unknown) (unknown) (2) COPD (chronic (units (unknown) date) obstructive pulmonary unknown) disease): (unknown) (no (unknown) (unknown) (3) Benign essential (uni ts (unknown) date) HTN: unknown) (unknown) (no (unknown) (unknown) (4) Vertigo: (units (u nknown) date) unknown) (unknown) (no (unknown) (unknown) (5) Dizziness: (units (unknown) date) unknown) (unknown) (no (unknown) (unknown) -Spiriva to control (unit s (unknown) date) COPD unknown) (unknown) (no (unknown) (unknown) -albuterol for (units (unknown) date) rescue. Discussed the unknown) goal is to find control medications where (unknown) (no (unknown) (unknown) -follow-up 1 month, (unit s (unknown) date) as needed any Concerns unknown ) (unknown) (no (unknown) (unknown) -increase fluid (units (unknown) date) intake unknown) (unknown) (no (unknown) (unknown) -she can use (units (u nknown) date) meclizine as needed unknown) for the vertigo only. Discussed side effect (unknown) (no (unknown) (unknown) -start physical (units (unknown) date) therapy for vestibular unknown ) rehab. Strength and balance training. (unknown) (no (unknown) (unknown) -use walker at all (units (unknown) date) times unknown) (unknown) (no (unknown) (unknown) .Route .COMPLEX #30 (unit s (unknown) date) tabs 02/08/22 [Rx unknown) Confirmed 02/22/22] (unknown) (no (unknown) (unknown) [id number] (units (unkn own) date) unknown) (unknown) (no (unknown) (unknown) 02/22/22 1558 (units ( unknown) date) unknown) (unknown) (no (unknown) (unknown) 02/22/22 [Rx] (units ( unknown) date) unknown) (unknown) (no (unknown) (unknown) 02/22/22 (units (unkno wn) date) unknown) (unknown) (no (unknown) (unknown) 02/22/22] (units (unkn own) date) unknown) (unknown) (no (unknown) (unknown) 03/30/21 [Rx (units (u nknown) date) Confirmed 02/22/22] unknown) (unknown) (no (unknown) (unknown) 09:06 (units (unkno wn) date) unknown) (unknown) (no (unknown) (unknown) . I think she (units (unknown) date) has a vertigo and unknown) dizziness component. (unknown) (no (unknown) (unknown) 2. Try to get her PFT (un its (unknown) date) again. unknown) (unknown) (no (unknown) (unknown) 3. Has been (units (un known) date) well-controlled at unknown) home. Her amlodipine was stopped. We will (unknown) (no (unknown) (unknown) 71 year old female (units (unknown) date) presents to clinic to unknown) recheck BP and COPD. the patient states (unknown) (no (unknown) (unknown) 90 inhalations 3RF (units (unknown) date) unknown) (unknown) (no (unknown) (unknown) Age/Sex: 71 / F Date (uni ts (unknown) date) of Service: unknown) (unknown) (no (unknown) (unknown) Allergies (units (unkn own) date) unknown) (unknown) (no (unknown) (unknown) Allergies: Reviewed (unit s (unknown) date) unknown) (unknown) (no (unknown) (unknown) [place] [id number] (unit s (unknown) date) unknown) (unknown) (no (unknown) (unknown) Assessment + Plan (units (unknown) date) unknown) (unknown) (no (unknown) (unknown) Attending Dr: Nora (units (unknown) date) Lorenza D.OPaco unknown) (unknown) (no (unknown) (unknown) BMI 33.8 (units (unkno wn) date) unknown) (unknown) (no (unknown) (unknown) BP 132/80 (units (unkn own) date) unknown) (unknown) (no (unknown) (unknown) PADRON TREES Allergy (unit s (unknown) date) (Intermediate, Uncoded unknown ) 02/22/22 09:08) (unknown) (no (unknown) (unknown) Benign essential HTN (uni ts (unknown) date) unknown) (unknown) (no (unknown) (unknown) Blood Pressure (units (unknown) date) Location Rt radial unknown) (unknown) (no (unknown) (unknown) CHEST: Normal (units [...] (unknown) (unknown) Chief Complaint: (units (unknown) date) Dizziness unknown) (unknown) (no (unknown) (unknown) Chronic kidney (units (unknown) date) disease (CKD) stage unknown) G3b/A1, moderately decreased glomerular (unknown) (no (unknown) (unknown) Confirmed 02/22/22] (unit s (unknown) date) unknown) (unknown) (no (unknown) (unknown) Constitutional: (units (unknown) date) Negative.? unknown) (unknown) (no (unknown) (unknown) : 1950 (units (unknown) date) Acct:[id number] unknown) (unknown) (no (unknown) (unknown) Dept at (units (unkno wn) date) . unknown) (unknown) (no (unknown) (unknown) Disabled Parking (units (unknown) date) Permit ##1 11/28/21 unknown) [Rx Confirmed 02/22/22] (unknown) (no (unknown) (unknown) Documented By: (units (unknown) date) Nora Britt 02/22/22 unknown) [id number] (unknown) (no (unknown) (unknown) EYES: PERRL, EOMI [...] date) Normocephalic unknown) (unknown) (no (unknown) (unknown) HandiHaler) 1 cap (units (unknown) date) inhalation DAILY #90 unknown) inhalations 02/22/22 [Rx Confirmed (unknown) (no (unknown) (unknown) Health Management (units (unknown) date) reviewed with patient: unknown ) Yes (unknown) (no (unknown) (unknown) Health Management (units (unknown) date) unknown) (unknown) (no (unknown) (unknown) Height 5 [...] (unknown) Medical History (units (unknown) date) (Updated 02/08/22 @ unknown) 00:00 by ) (unknown) (no (unknown) (unknown) Medications (units (un [...] x 3.? unknown) (unknown) (no (unknown) (unknown) New (units (unkno wn) date) unknown) (unknown) (no (unknown) (unknown) Note (units (unkno wn) date) unknown) (unknown) (no (unknown) (unknown) Note: (units (unkno wn) date) unknown) (unknown) (no (unknown) (unknown) Notes (units (unkno wn) date) unknown) (unknown) (no (unknown) (unknown) OAK TREES Allergy (units (unknown) date) (Intermediate, Uncoded unknown ) 02/22/22 09:08) (unknown) (no (unknown) (unknown) Obesity (units (unkno [...] wn) date) unknown) (unknown) (no (unknown) (unknown) PRN shortness of (units (unknown) date) breath or wheezing unknown) #8.5 grams 02/22/22 [Rx Confirmed 02/22/22] (unknown) (no (unknown) (unknown) PSYCH: judgement (units (unknown) date) normal, orientation unknown) normal, affect/mood normal and memory (unknown) (no (unknown) (unknown) Patient states that (unit s (unknown) date) she is had some unknown) episodes where she feels unsteady when she (unknown) (no (unknown) (unknown) Patient: (units (unkno [...] date) unknown) (unknown) (no (unknown) (unknown) Pulse 84 (units (unkno wn) date) unknown) (unknown) (no (unknown) (unknown) Pulse Oximetry (%) 98 (un its (unknown) date) unknown) (unknown) (no (unknown) (unknown) Pulse Source Monitor (uni ts (unknown) date) unknown) (unknown) (no (unknown) (unknown) Qualifiers: (units (un known) date) unknown) (unknown) (no (unknown) (unknown) Reason For Visit (units (unknown) date) unknown) (unknown) (no (unknown) (unknown) Referral Physical (units (unknown) date) Therapy R42 - unknown) Dizziness and giddiness, Z91.81 - History of (unknown) (no (unknown) (unknown) Referrals (units (unkn own) date) unknown) (unknown) (no (unknown) (unknown) Review [...] (unknown) date) unknown) (unknown) (no (unknown) (unknown) Spiriva or the (units (unknown) date) pulmonary function unknown) test we discussed last visit. (unknown) (no (unknown) (unknown) Status post (units [...] Dhaliwal DO) (unknown) (no (unknown) (unknown) Temp 97.9 F [...] date) syndrome unknown) (unknown) (no (unknown) (unknown) Traumatic brain (units (unknown) date) injury (2010) unknown) (unknown) (no (unknown) (unknown) UTI (urinary tract (units (unknown) date) infection) unknown) (unknown) (no (unknown) (unknown) Visit Reasons: 1 (units (unknown) date) month recheck COPD AND unknown ) BP (unknown) (no (unknown) (unknown) Vital Signs: Reviewed (un its (unknown) date) unknown) (unknown) (no (unknown) (unknown) Vitals (units (unkno wn) date) unknown) (unknown) (no (unknown) (unknown) Voice recognition (units (unknown) date) software was used in unknown) the creation of this note. There may be (unknown) (no (unknown) (unknown) Weight 216 lb (units ( unknown) date) unknown) (unknown) (no (unknown) (unknown) [Rx Confirmed (units ( unknown) date) 02/22/22] unknown) (unknown) (no (unknown) (unknown) albuterol sulfate 90 (uni ts (unknown) date) mcg/actuation 1 - 2 unknown) inhalations inhalation Q4-6H PRN 8.5 (unknown) (no (unknown) (unknown) albuterol sulfate 90 (uni ts (unknown) date) mcg/actuation aerosol unknown) inhaler 1 - 2 inh inhalation Q4-6H (unknown) (no (unknown) (unknown) alcohol intake: never (un its (unknown) date) unknown) (unknown) (no (unknown) (unknown) amitriptyline 25 mg (units (unknown) date) tablet See Rx unknown) Instructions .Route .COMPLEX #90 tabs 06/04/21 (unknown) (no (unknown) (unknown) angioedema (units (unk nown) date) unknown) (unknown) (no (unknown) (unknown) aspirin Allergy (units (unknown) date) (Severe, Verified unknown) 02/22/22 09:08) (unknown) (no (unknown) (unknown) atinine ratio less (units (unknown) date) than 30 mg/g unknown) (unknown) (no (unknown) (unknown) consistently now. She (un its (unknown) date) continues to smoke. unknown) Her diet has not been ideal. She (unknown) (no (unknown) (unknown) continue to monitor. (uni ts (unknown) date) unknown) (unknown) (no (unknown) (unknown) cortisone [CORTISONE] (un its (unknown) date) Allergy (Mild, unknown) Verified 02/22/22 09:08) (unknown) (no (unknown) (unknown) falling (units (unkno wn) date) unknown) (unknown) (no (unknown) (unknown) filtration rate (GFR) (uni ts (unknown) date) between 30-44 unknown) mL/min/1.73 square meter and albuminuria cre (unknown) (no (unknown) (unknown) furosemide 20 mg (units (unknown) date) tablet See Rx unknown) Instructions .Route .COMPLEX PRN edema #30 tabs (unknown) (no (unknown) (unknown) getting dizzy. (units (unknown) date) unknown) (unknown) (no (unknown) (unknown) grams 11RF shortness (uni ts (unknown) date) of breath or wheezing unknown) (unknown) (no (unknown) (unknown) has gained some (units (unknown) date) weight since our last unknown) visit. No significant leg swelling, chest (unknown) (no (unknown) (unknown) have occurred. If (units (unknown) date) there are any unknown) questions, please contact the Medical Records (unknown) (no (unknown) (unknown) have these episodes. (uni ts (unknown) date) She is afraid of unknown) falling and is using a walker more (unknown) (no (unknown) (unknown) hives (units (unkno [...] 60 mg unknown) tablet,extended release 24 hr See Rx Instructions (unknown) (no (unknown) (unknown) lisinopril Adverse (units (unknown) date) Reaction (Severe, unknown) Verified 02/22/22 09:08) (unknown) (no (unknown) (unknown) may occur. Occasional (un its (unknown) date) wrong-word or unknown) 'sound-alike' substitutions may have (unknown) (no (unknown) (unknown) meclizine 25 mg PO (units (unknown) date) DAILY PRN 30 tabs 1RF unknown) vertigo (unknown) (no (unknown) (unknown) meclizine 25 mg (units (unknown) date) tablet 25 mg PO DAILY unknown) PRN vertigo #30 tabs 02/22/22 [Rx (unknown) (no (unknown) (unknown) minoxidil 2.5 mg (units (unknown) date) tablet See Rx unknown) Instructions .Route .COMPLEX #60 tabs 10/29/21 (unknown) (no (unknown) (unknown) mold [MOLD] Allergy (unit s (unknown) date) (Intermediate, unknown) Verified 02/22/22 09:08) (unknown) (no (unknown) (unknown) no apparent distress. (un its (unknown) date) unknown) (unknown) (no (unknown) (unknown) normal (units (unkno wn) date) unknown) (unknown) (no (unknown) (unknown) obstructive pulmonary (un its (unknown) date) disease, unspecified unknown) (unknown) (no (unknown) (unknown) occurred due to the (unit s (unknown) date) inherent limitations unknown) of voice recognition software. Please (unknown) (no (unknown) (unknown) pains. She continues (uni ts (unknown) date) to be short of breath unknown) and wheezing. She did not get the (unknown) (no (unknown) (unknown) positions. She was (units (unknown) date) seen in the emergency unknown) department and her amlodipine was (unknown) (no (unknown) (unknown) potassium chloride 20 (un its (unknown) date) mEq tablet,extended unknown) release(part/cryst) 20 meq PO DAILY (unknown) (no (unknown) (unknown) profile. (units (unkno wn) date) unknown) (unknown) (no (unknown) (unknown) puncture 1 cap using (uni ts (unknown) date) device; one dose = 2 unknown) inhalations 1 cap inhalation DAILY (unknown) (no (unknown) (unknown) read the note (units ( unknown) date) carefully and unknown) recognize, using context, where these substitutions (unknown) (no (unknown) (unknown) rivaroxaban 20 mg (units (unknown) date) tablet (Xarelto) 20 mg unknown ) PO QPM #90 tabs 11/28/21 [Rx Confirmed (unknown) (no (unknown) (unknown) she has to use her (units (unknown) date) albuterol very unknown) infrequently. (unknown) (no (unknown) (unknown) software. Although (units (unknown) date) every effort is made unknown) to edit content, customer success specialist errors (unknown) (no (unknown) (unknown) spiriva but the (units (unknown) date) pharmacy did not get unknown) the order. she states that she is still (unknown) (no (unknown) (unknown) stands up quickly she (un its (unknown) date) also has episodes unknown) where the room spins when she changes (unknown) (no (unknown) (unknown) stopped. Her blood (units (unknown) date) pressure has been unknown) well-controlled at home. She continues to (unknown) (no (unknown) (unknown) that the ER gave her (uni ts (unknown) date) a walker for unknown) stability. they were supposd to prescribe her (unknown) (no (unknown) (unknown) tiotropium bromide (units (unknown) date) (Spiriva with unknown) HandiHaler) (unknown) (no (unknown) (unknown) tiotropium bromide 18 (un its (unknown) date) mcg capsule with unknown) inhalation device (Spiriva with (unknown) (no (unknown) (unknown) typographical errors (uni ts (unknown) date) as a result. unknown) (unknown) (no (unknown) (unknown) while on lasix #30 (units (unknown) date) tabs 01/25/22 [Rx unknown) Confirmed 02/22/22] Result panel 366 (unknown) (no (unknown) (unknown) (no value) (units (unk nown) date) unknown) (unknown) (no (unknown) (unknown) [id number] (units (unkn own) date) unknown) (unknown) (no (unknown) (unknown) 03/05/22 (units (unkno wn) date) unknown) (unknown) (no (unknown) (unknown) 71-year-old woman (units (unknown) date) with history of unknown) hypertension, hyperlipidemia, CHF, (unknown) (no (unknown) (unknown) Age/Sex: 71 / F Date (uni ts (unknown) date) of Service: unknown) (unknown) (no (unknown) (unknown) Allergies (units (unkn own) date) unknown) (unknown) (no (unknown) (unknown) HANNY Nixon [id number] (unit s (unknown) date) unknown) (unknown) (no (unknown) (unknown) Attending Dr: Carlitos Jackson (uni ts (unknown) date) Lon Hoffman unknown) (unknown) (no (unknown) (unknown) PADRON TREES Allergy (unit s (unknown) date) (Intermediate, Uncoded unknown ) 02/22/22 09:08) (unknown) (no (unknown) (unknown) Benign essential HTN (uni ts (unknown) date) unknown) (unknown) (no (unknown) (unknown) COPD (chronic (units ( unknown) date) obstructive pulmonary unknown) disease) (unknown) (no (unknown) (unknown) CVA (cerebral (units ( unknown) date) vascular accident) unknown) (2006) (unknown) (no (unknown) (unknown) Chief Complaint (units (unknown) date) unknown) (unknown) (no (unknown) (unknown) Chief Complaint: (units (unknown) date) Multiple concerns unknown) (unknown) (no (unknown) (unknown) Chronic kidney (units (unknown) date) disease (CKD) stage unknown) G3b/A1, moderately decreased glomerular (unknown) (no (unknown) (unknown) : 1950 (units (unknown) date) Acct:[id number] unknown) (unknown) (no (unknown) (unknown) Dept at (units (unkno wn) date) . unknown) (unknown) (no (unknown) (unknown) Details: (units (unkno wn) date) unknown) (unknown) (no (unknown) (unknown) Documented By: (units (unknown) date) Carlitos Forrest D.O. unknown) 03/11/22 0949 (unknown) (no (unknown) (unknown) Draft (units (unkno wn) date) unknown) (unknown) (no (unknown) (unknown) Elevated fasting (units (unknown) date) blood sugar unknown) (unknown) (no (unknown) (unknown) Essential (units (unkn own) date) hypertension unknown) (12/30/14) (unknown) (no (unknown) (unknown) [facility] (units (unknown) date) Office Visit unknown) (unknown) (no (unknown) (unknown) [facility]) (unknown) (no (unknown) (unknown) HPI (units (unkno wn) date) unknown) (unknown) (no (unknown) (unknown) History [...] (unknown) Medical History (units (unknown) date) (Updated 02/08/22 @ unknown) 00:00 by ) (unknown) (no (unknown) (unknown) NASAL CONGESTION (units (unknown) date) unknown) (unknown) (no (unknown) (unknown) OAK TREES Allergy (units (unknown) date) (Intermediate, Uncoded unknown ) 02/22/22 09:08) (unknown) (no (unknown) (unknown) Obesity (units (unkno [...] date) syndrome unknown) (unknown) (no (unknown) (unknown) Traumatic brain (units (unknown) date) injury (2010) unknown) (unknown) (no (unknown) (unknown) UTI (urinary tract (units (unknown) date) infection) unknown) (unknown) (no (unknown) (unknown) Visit Reasons: VIDEO (uni ts (unknown) date) Discuss changes in unknown) behavior/wandering off (unknown) (no (unknown) (unknown) alcohol intake: never (un its (unknown) date) unknown) (unknown) (no (unknown) (unknown) angioedema (units (unk nown) date) unknown) (unknown) (no (unknown) (unknown) aspirin Allergy (units (unknown) date) (Severe, Verified unknown) 02/22/22 09:08) (unknown) (no (unknown) (unknown) cortisone [CORTISONE] (un its (unknown) date) Allergy (Mild, unknown) Verified 02/22/22 09:08) (unknown) (no (unknown) (unknown) creatinine ratio less [...] (units (unknown) date) Reaction (Severe, unknown) Verified 02/22/22 09:08) (unknown) (no (unknown) (unknown) may occur. Occasional (un its (unknown) date) wrong-word or unknown) 'sound-alike' substitutions may have (unknown) (no (unknown) (unknown) mold [MOLD] Allergy (unit s (unknown) date) (Intermediate, unknown) Verified 02/22/22 09:08) (unknown) (no (unknown) (unknown) occurred due to the (unit s (unknown) date) inherent limitations unknown) of voice recognition software. Please (unknown) (no (unknown) (unknown) presents with who has (un its (unknown) date) concerns about her unknown) (unknown) (no (unknown) (unknown) read the note (units ( unknown) date) carefully and unknown) recognize, using context, where these substitutions (unknown) (no (unknown) (unknown) software. Although (units (unknown) date) every effort is made unknown) to edit content, customer success specialist errors Result panel 367 (unknown) (no (unknown) (unknown) (no value) (units (unk nown) date) unknown) (unknown) (no (unknown) (unknown) [id number] (units (unkn own) date) unknown) (unknown) (no (unknown) (unknown) 03/11/22 (units (unkno wn) date) unknown) (unknown) (no (unknown) (unknown) 71-year-old woman (units (unknown) date) with history of unknown) hypertension, hyperlipidemia, CHF, (unknown) (no (unknown) (unknown) Age/Sex: 71 / F Date (uni ts (unknown) date) of Service: unknown) (unknown) (no (unknown) (unknown) Allergies (units (unkn own) date) unknown) (unknown) (no (unknown) (unknown) [place] [address] (unit s (unknown) date) unknown) (unknown) (no (unknown) (unknown) Attending Dr: Carlitos Jackson (uni ts (unknown) date) Lon Hoffman unknown) (unknown) (no (unknown) (unknown) [place] Allergy (unit s (unknown) date) (Intermediate, Uncoded unknown ) 02/22/22 09:08) (unknown) (no (unknown) (unknown) Benign essential HTN (uni ts (unknown) date) unknown) (unknown) (no (unknown) (unknown) COPD (chronic (units ( unknown) date) obstructive pulmonary unknown) disease) (unknown) (no (unknown) (unknown) CVA (cerebral (units ( unknown) date) vascular accident) unknown) (2007) (unknown) (no (unknown) (unknown) Chief Complaint (units (unknown) date) unknown) (unknown) (no (unknown) (unknown) Chief Complaint: (units (unknown) date) Multiple concerns unknown) (unknown) (no (unknown) (unknown) Chronic kidney (units (unknown) date) disease (CKD) stage unknown) G3b/A1, moderately decreased glomerular (unknown) (no (unknown) (unknown) : 1950 (units (unknown) date) Acct:[id number] unknown) (unknown) (no (unknown) (unknown) Dept at (units (unkno wn) date) . unknown) (unknown) (no (unknown) (unknown) Details: (units (unkno wn) date) unknown) (unknown) (no (unknown) (unknown) Documented By: (units (unknown) date) Carlitos Forrest D.O. unknown) 03/11/22 0949 (unknown) (no (unknown) (unknown) Draft (units (unkno wn) date) unknown) (unknown) (no (unknown) (unknown) Elevated fasting (units (unknown) date) blood sugar unknown) (unknown) (no (unknown) (unknown) Essential (units (unkn own) date) hypertension unknown) (12/30/14) (unknown) (no (unknown) (unknown) [facility] (units (unknown) date) Office Visit unknown) (unknown) (no (unknown) (unknown) [facility]) (unknown) (no (unknown) (unknown) HPI (units (unkno wn) date) unknown) (unknown) (no (unknown) (unknown) History [...] (2006) unknown) (unknown) (no (unknown) (unknown) Intake (units [...] (unknown) Medical History (units (unknown) date) (Updated 02/08/22 @ unknown) 00:00 by ) (unknown) (no (unknown) (unknown) NASAL CONGESTION (units (unknown) date) unknown) (unknown) (no (unknown) (unknown) [place] Allergy (units (unknown) date) (Intermediate, Uncoded unknown ) 02/22/22 09:08) (unknown) (no (unknown) (unknown) Obesity (units (unkno [...] date) syndrome unknown) (unknown) (no (unknown) (unknown) Traumatic brain (units (unknown) date) injury (2010) unknown) (unknown) (no (unknown) (unknown) UTI (urinary tract (units (unknown) date) infection) unknown) (unknown) (no (unknown) (unknown) Visit Reasons: VIDEO (uni ts (unknown) date) Discuss changes in unknown) behavior/wandering off (unknown) (no (unknown) (unknown) about her taking a (units (unknown) date) walk and going missing unknown ) for ten hours walking about 12 miles (unknown) (no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
[2022-03-14 11:48] LABS: BASOPHILS # (AUTO) 0.1 10^3/uL (0.0-0.1); BASOPHILS % (AUTO) 0.4 %; EOSINOPHILS % (AUTO) 0.1 %; HCT - HEMATOCRIT 52.2 % (37.0-47.0); HGB - HEMOGLOBIN 15.2 g/dL (12.0-16.0); LYMPHOCYTES # (AUTO) 0.5 10^3/uL (1.5-3.5); LYMPHOCYTES % (AUTO) 3.5 %; MEAN CORPUSCULAR HEMOGLOBIN 26.7 pg (27.0-31.0); MEAN CORPUSCULAR HGB CONC 29.1 g/dL (32.0-36.0); MEAN CORPUSCULAR VOLUME 91.6 fL (81.0-99.0); MEAN PLATELET VOLUME 10.6 fL (7.9-10.8); MONOCYTES # (AUTO) 0.5 10^3/uL (0.0-1.0); MONOCYTES % (AUTO) 3.5 %; NEUTROPHILS % (AUTO) 91.9 %; PLT - PLATELET COUNT 182 10^3/uL (130-450); RED CELL DISTRIBUTION WIDTH 13.8 % (12.0-15.0); WHITE BLOOD COUNT 14.1 x10^3/uL (4.8-10.8)
--- NOTE | 2022-03-14 12:04 | CT Report ---
PROCEDURE: HEAD WO INDICATIONS: L sided deficits on xarelto/last normal > 12 hrs TECHNIQUE: Noncontrast 4.5 mm thick angled axial sections acquired from the foramen magnum to the vertex. For r adiation dose reduction, the following was used: automated exposure control, adjustment of mA and/or kV according to patient size. COMPARISON: 02/18/2022 FINDINGS: Image quality: Excellent. CSF spaces: Basal cisterns are patent. No extra-axial fluid collections. The ventricles are symmet buffy in size and shape. Brain: No intracranial bleeds or masses. There is cerebral volume loss for age, with resultant vent ricular and sulcal prominence. There are periventricular and deep white matter chronic small vessel ischemic changes. There is intracranial internal carotid artery atherosclerosis. Skull and face: Calvarium and visualized facial bones appear intact, without suspicious lesions. Sinuses: Visualized sinuses and mastoids are clear. IMPRESSION: 1. No CT evidence of acute intracranial abnormalities. 2. No significant changes from 02/18/2022 study. Reviewed by: Jeff Duarte MD on 03/14/2022 12:03 PM PST Approved by: Jeff Duarte MD on 03/14/2022 12:03 PM PST Station ID: [id number]
--- NOTE | 2022-03-14 12:05 | XRAY Report ---
PROCEDURE: Chest 1 View X-Ray INDICATIONS: weak TECHNIQUE: One view of the chest was acquired. COMPARISON: 02/18/2022. FINDINGS: Surgical changes and devices: None. Lungs and pleura: No pleural effusions or pneumothorax. Lungs are clear. Mediastinum: Mildly tortuous thoracic aorta is seen. Heart size is enlarged. Bones and chest wall: No suspicious bony lesions. Overlying soft tissues appear unremarkable. IMPRESSION: No acute cardiopulmonary pathology. No significant changes from previous study. Reviewed by: Jeff Duarte MD on 03/14/2022 12:04 PM PST Approved by: Jeff Duarte MD on 03/14/2022 12:04 PM PST Station ID: [id number]
[2022-03-14] MEDS ORDERED: SODIUM CHLORIDE 0.9% 1,000 ML IV STA ×2 (12:13→19:07)
[2022-03-14 13:12] LABS: BILIRUBIN,URINE NEGATIVE (NEGATIVE); GLUCOSE, URINE (UA) NEGATIVE (NEGATIVE); KETONES,URINE (UA) NEGATIVE (NEGATIVE); LEUKOCYTE ESTERASE, URINE TRACE (NEGATIVE); NITRITE,URINE NEGATIVE (NEGATIVE); OCCULT BLOOD,URINE TRACE-INTA (NEGATIVE); PROTEIN,URINE TRACE mg/dL (NEGATIVE); UROBILINOGEN,URINE 0.2 (NORMAL) E.U./dL (NORMAL)
[2022-03-14 13:15] LABS: CLARITY,URINE CLEAR (CLEAR)
--- NOTE | 2022-03-14 13:16 | ED Physician Documentation ---
PD HPI FOCAL NEURO - Stated complaint Stated Complaint: GLF - Chief complaint Chief Complaint: Neuro - History obtained from History obtained from: Patient, Family (Patient's friend who is also her caregiver) - Additional information Additional information: Patient is a 71-year-old female who is on Eliquis presenting for evaluation of weakness, fall at home and left-sided deficits. She was last seen at her baseline around 5:00 last night. This morning she was found by her caregiver's daughter laying on the ground. Patient states that she felt weak this morning and had fallen. The caregiver daughter had noted that she was not able to move her left side or uses to help try and get her up. EMS was then called. They noted her initial blood glucose was 50. On recheck it was 20 and they gave her a dose of glucagon.Per caregiver she has had recent episodes where she complains of feeling dizzy. Review of Systems Constitutional: denies: Fever Cardiac: denies: Chest pain / pressure Respiratory: denies: Dyspnea GI: denies: Abdominal Pain Neurologic: reports: Focal weakness. denies: Headache PD PAST MEDICAL HISTORY - Past Medical History Cardiovascular: Congestive heart failure, Deep vein thrombosis, Other (Factor V Leiden) - Present Medications Home Medications: Ambulatory Orders Medication Instructions Recorded Confirmed Albuterol Sulf [Ventolin Hfa 1 - 2 puffs INH Q4HR PRN 03/14/22 03/14/22 Inhaler] Amitriptyline [Elavil] 25 mg PO QPM 03/14/22 03/14/22 Donepezil HCl [Aricept] 10 mg PO DAILY 03/14/22 03/14/22 Furosemide [Lasix] 20 mg PO BID 03/14/22 03/14/22 Isosorbide Mononitrate [Isosorbide 60 mg PO DAILY 03/14/22 03/14/22 Mononitrate ER] Potassium Chloride 20 meq PO DAILY 03/14/22 03/14/22 Rivaroxaban [Xarelto] 20 mg PO DAILY 03/14/22 03/14/22 Tiotropium [place] [Spiriva See Rx Instructions .ROUTE .COMPLEX 03/14/22 03/14/22 Respimat] minoxidiL [Minoxidil] 2.5 mg PO BID 03/14/22 03/14/22 - Allergies Allergies/Adverse Reactions: Allergies Allergy/AdvReac Type Severity Reaction Status Date / Time aspirin Allergy Unknown Verified 02/18/22 11:38 cortisone Allergy Hives Verified 01/04/22 12:56 lisinopril Allergy Unknown Verified 01/04/22 12:56 PD ED PE NORMAL - General General: Alert and oriented X 3, No acute distress, Well developed/nourished - HEENT HEENT: Atraumatic - Neck Neck: Supple, no meningeal sign - Cardiac Cardiac: RRR - Respiratory Respiratory: No respiratory distress, Clear bilaterally - Abdomen Abdomen: Soft, Non tender - Derm Derm: Warm and dry - Neuro Neuro: Alert and oriented X 3, manager gallery 2-12 intact, Normal speech. No: No motor deficit (Left-sided arm and leg weakness) NIHSS - Level of Consciousness Level of consciousness: (0) Alert, Keenly responsive LOC Questions: (0) Answers both Q's correct LOC Commands: (0) Performs both correctly - Gaze Best Gaze: (0) Normal - Visual Visual: (0) No loss - Facial Palsy Facial Palsy: (0) Normal, symmetrical movement - Motor Arms (both separate) Motor Arm (right): (0) No drift Motor Arm (left): (3) No effort against gravity - Motor Legs (both separate) Motor Leg (right): (0) No drift Motor Leg (left): (3) No effort against gravity - Limb Ataxia Limb Ataxia: (1) Present in 1 limb - Sensory Sensory: (1) [id number]-[id number] loss - Best Language Best Language: (0) No aphasia - Dysarthria Dysarthria: (0) Normal - Extinction and Inattention (formally neg Extinction and inattention: (0) No abnormality - Total Score/Results Total Score/Result: 8 Results - Vitals Vitals: Vital Signs - 24 hr 03/14/22 03/14/22 03/14/22 10:55 14:05 16:04 Temperature 36.7 C Heart Rate 88 102 H 96 Respiratory 22 23 17 Rate Blood Pressure 176/82 H 162/66 H 172/90 H O2 Saturation 100 99 99 03/14/22 16:43 Temperature Heart Rate 94 Respiratory 14 Rate Blood Pressure 178/85 H O2 Saturation 99 Oxygen O2 Source Room air - EKG (time done) 1215 Rate: Rate (enter#) (57) Rhythm: NSR Intervals: No: Prolonged QT Ischemia: No: ST elevation c/w ischemia - Labs Labs: Laboratory Tests 03/14/22 03/14/22 03/14/22 11:44 13:05 13:10 WBC 14.1 H RBC 5.70 H Hgb 15.2 Hct 52.2 H MCV 91.6 MCH 26.7 L MCHC 29.1 L RDW 13.8 Plt Count 182 MPV 10.6 Neut # (Auto) 13.0 H Lymph # (Auto) 0.5 L [place] # (Auto) 0.5 Eos # (Auto) 0.0 Baso # (Auto) 0.1 Absolute Nucleated RBC 0.00 Nucleated RBC % 0.0 PT 14.1 H INR 1.3 H Sodium Potassium Chloride Carbon Dioxide Anion Gap BUN Creatinine Estimated GFR (MDRD) Glucose Calcium Total Bilirubin AST ALT Alkaline Phosphatase Troponin I High Sens Total Protein Albumin Globulin Albumin/Globulin Ratio Urine Color YELLOW Urine Clarity CLEAR Urine pH 6.0 Ur Specific [place] 1.015 Urine Protein TRACE Urine Glucose (UA) NEGATIVE Urine Ketones NEGATIVE Urine Occult Blood TRACE-INTA Urine Nitrite NEGATIVE Urine Bilirubin NEGATIVE Urine Urobilinogen 0.2 (NORMAL) Ur Leukocyte Esterase TRACE H Urine RBC 0-5 Urine WBC 0-3 Ur Squamous Epith Cells MOD Squamous H Urine Bacteria Few Ur Microscopic Review INDICATED Urine Culture Comments NOT INDICATED Nasal Adenovirus (PCR) Nasal B. parapertussis DNA (PCR) Nasal Coronavir 229E PCR Nasal Coronavir HKU1 PCR Nasal Coronavir NL63 PCR Nasal Coronavir OC43 PCR Nasal Enterovir/Rhinovir PCR Nasal Influenza B PCR Nasal Influenza A PCR Nasal Parainfluen 1 PCR Nasal Parainfluen 2 PCR Nasal Parainfluen 3 PCR Nasal Parainfluen 4 PCR Nasal RSV (PCR) Nasal B.pertussis DNA PCR Nasal C.pneumoniae (PCR) Fish Human Metapneumo PCR Nasal M.pneumoniae (PCR) Nasal SARS-CoV-2 (PCR) 03/14/22 03/14/22 03/14/22 13:10 13:10 13:38 WBC RBC Hgb Hct MCV MCH MCHC RDW Plt Count MPV Neut # (Auto) Lymph # (Auto) [place] # (Auto) Eos # (Auto) Baso # (Auto) Absolute Nucleated RBC Nucleated RBC % PT INR Sodium 138 Potassium 3.9 Chloride 101 Carbon Dioxide 23 Anion Gap 14.0 H BUN 40 H Creatinine 1.9 H Estimated GFR (MDRD) 26 L Glucose 153 H Calcium 8.6 Total Bilirubin 0.7 AST 23 ALT 15 Alkaline Phosphatase 57 Troponin I High Sens 12.4 Total Protein 7.8 Albumin 4.0 Globulin 3.8 Albumin/Globulin Ratio 1.1 Urine Color Urine Clarity Urine pH Ur Specific [place] Urine Protein Urine Glucose (UA) Urine Ketones Urine Occult Blood Urine Nitrite Urine Bilirubin Urine Urobilinogen Ur Leukocyte Esterase Urine RBC Urine WBC Ur Squamous Epith Cells Urine Bacteria Ur Microscopic Review Urine Culture Comments Nasal Adenovirus (PCR) NOT DETECTED Nasal B. parapertussis DNA (PCR) NOT DETECTED Nasal Coronavir 229E PCR NOT DETECTED Nasal Coronavir HKU1 PCR NOT DETECTED Nasal Coronavir NL63 PCR NOT DETECTED Nasal Coronavir OC43 PCR NOT DETECTED Nasal Enterovir/Rhinovir PCR NOT DETECTED Nasal Influenza B PCR NOT DETECTED Nasal Influenza A PCR NOT DETECTED Nasal Parainfluen 1 PCR NOT DETECTED Nasal Parainfluen 2 PCR NOT DETECTED Nasal Parainfluen 3 PCR NOT DETECTED Nasal Parainfluen 4 PCR NOT DETECTED Nasal RSV (PCR) NOT DETECTED Nasal B.pertussis DNA PCR NOT DETECTED Nasal C.pneumoniae (PCR) NOT DETECTED Fish Human Metapneumo PCR NOT DETECTED Nasal M.pneumoniae (PCR) NOT DETECTED Nasal SARS-CoV-2 (PCR) NOT DETECTED Procedures - Central Line - Major Central Line Preparation: Consent Obtained, Ultrasound used, Sterile prep and drape Central line location: Right IJ Central line type: Triple lumen Central line aftercare: Chlorhexidine disc placed, Secured, Placement confirmed, No pneumothorax, No complications, Pt tolerated well, Other (Right femoral was attempted but Catheter was getting kinked over the wire and would not easily advance so attempt was aborted. A pressure was applied to the site and dressing was placed. On reinspection, no hematoma.) PD Medical Decision Making - ED course Complexity details: reviewed results, re-evaluated patient, d/w patient, d/w family ED course: Patient is a 71-year-old female presenting for evaluation of weakness and left- sided deficits. Her last known normal was greater than 12 hours ago at 5 PM last night so she is outside of window for tPA. She is additionally on Xarelto also making her not a candidate for tPA. CT scan of her brain does not show a hemorrhage and I did also review these images. Her labs reviewed and she has mild worsening of her baseline renal function with a creatinine of 1.9 and GFR of 26. She was given IV fluids. She was very difficult for IV access and there was a delay in obtaining access. Ultimately a central line was placed. Patient is not able to get CT angios because of her impaired renal function. She did have some slight improvement in strength of her left upper extremity and was able to raise it against gravity. However she did not have much change with left leg weakness. There are no hospital beds available so patient will remain boarding in the emergency department. She has aspirin listed as an allergy and was started on Plavix. Her Xarelto will be held for at least 48 hours given the risk of hemorrhagic conversion from possible CVA. MRI and MRA has been ordered and operating theatre technician is planning on coming in tomorrow To complete them although he is just data collection technician. We will plan to recheck labs and hopefully her renal fun ction will have improved with hydration so she can also receive the contrast for the MRI. Patient will be boarding overnight in the emergency department and will be signed out at shift change to oncoming provider. Departure - Departure Disposition: [facility] DC/Vinicius Clinical Impression: Cerebrovascular accident (CVA) Condition: Serious
[2022-03-14 13:30] LABS: INR 1.3 (0.8-1.2); PT - PROTHROMBIN TIME 14.1 secs (9.9-12.6)
[2022-03-14] MEDS ORDERED: LIDOCAINE-MPF 2% 5 ML VIAL ONE (13:33)
--- NOTE | 2022-03-14 13:35 | CONSULTATION NOTE ---
Consultation Report: Called for difficult IV start. Ultrasound guided IV start 20G in right basilic on third attempt. Labs drawn, flushes easily. Lidocain 2% skin wheal for each attempt, patient tolerated well.
[2022-03-14 13:37] LABS: RBC,URINE 0-5 /HPF (0-5); SQUAMOUS EPITHELIAL CELL,UR MOD Squamous (<= Few); WBC,URINE 0-3 /HPF (0-5)
[2022-03-14 13:38] LABS: BACTERIA,URINE Few /HPF (None Seen)
[2022-03-14 13:38] LABS: ALBUMIN/GLOBULIN RATIO 1.1 (1.0-2.2); BILIRUBIN,TOTAL 0.7 mg/dL (0.2-1.0); CALCIUM 8.6 mg/dL (8.5-10.3); CREATININE 1.9 mg/dL (0.4-1.0); POTASSIUM 3.9 mmol/L (3.5-5.0); TOTAL PROTEIN 7.8 g/dL (6.7-8.2)
[2022-03-14 14:35] LABS: B. PARAPERTUSSIS- RESP PCR PAN NOT DETECTED; B. PERTUSSIS- RESP PCR PANEL NOT DETECTED; C. PNEUMONIAE- RESP PCR PANEL NOT DETECTED; CORONAVIRUS 229E-RESP PCR NOT DETECTED; CORONAVIRUS HKU1-RESP PCR NOT DETECTED; CORONAVIRUS NL63-RESP PCR NOT DETECTED; CORONAVIRUS OC43-RESP PCR NOT DETECTED; HUMAN METAPNEUMOVIRUS NOT DETECTED; INFLUENZA A- RESP PCR PANEL NOT DETECTED; INFLUENZA B - RESP PCR PANEL NOT DETECTED; M. PNEUMONIAE- RESP PCR PANEL NOT DETECTED; PARAINFLUENZA VIRUS 1 NOT DETECTED; PARAINFLUENZA VIRUS 2 NOT DETECTED; PARAINFLUENZA VIRUS 3 NOT DETECTED; PARAINFLUENZA VIRUS 4 NOT DETECTED; RHINOVIRUS/ENTEROVIRUS NOT DETECTED; RSV- RESP PCR PANEL NOT DETECTED; SARS-CoV-2 -RESP PCR PANEL NOT DETECTED
--- NOTE | 2022-03-14 15:28 | XRAY Report ---
PROCEDURE: Chest for Line Placement INDICATIONS: central line TECHNIQUE: One view of the chest was acquired. COMPARISON: Plain films dated 02/18/2022 FINDINGS: Surgical changes and devices: Right internal jugular vein central venous catheter is present, tip of which is in the right atrium. Lungs and pleura: No pleural effusions or pneumothorax. Mild diffuse reticulonodular pulmonary opaci ty. Mediastinum: Mediastinal contours appear normal. Heart size is normal. Bones and chest wall: No suspicious bony lesions. Overlying soft tissues appear unremarkable. IMPRESSION: Mild atypical pneumonia. Reviewed by: Demian De La Garza MD on 03/14/2022 3:27 PM PST Approved by: Demian De La Garza MD on 03/14/2022 3:27 PM PST Station ID: [id number]
[2022-03-14] MEDS ORDERED: CLOPIDOGREL 75 MG TABLET PO STA (15:33)
[2022-03-14] MEDS ORDERED: ONDANSETRON 4 MG/2 ML VIAL IVP PRN (17:33)
[2022-03-14] MEDS ORDERED: ACETAMINOPHEN 500 MG TABLET PO PRN (17:33)
[2022-03-14] MEDS ORDERED: QUEtiapine 25 MG TABLET PO STA (18:44)
--- NOTE | 2022-03-14 20:06 | ED Physician Documentation ---
ED Addendum - Addendum Addendum: 03/14/22 20:03 d/w Dr. Castro who stated that a bed will become available overnight and we can admit to telehealth. Plan for MRI / MRA tomorrow. Disposition: admit [facility] Impression: 1. Left sided weakness Condition serious
[2022-03-14] MEDS ORDERED: ACETAMINOPHEN 325 MG TABLET PO PRN (20:24)
[2022-03-14] MEDS ORDERED: SODIUM CHLORIDE FLUSH 0.9% 10 ML SYRINGE IVP PRN (20:24)
--- NOTE | 2022-03-14 20:44 | HISTORY & PHYSICAL EXAMINATION ---
Chief Complaint - Chief Complaint Chief Complaint: Worsening left sided weakness History of Present Illness - Admitted From Admitted From:: ED - History Obtained From Records Reviewed: Yes History obtained from: Patient and transitional care nurse Exam Limitations: Telemedicine - History of Present Illness HPI Comment/Other: 71YOF c tobacco abuse, hx of stroke due to hypercoagulable state c prior stroke and craniotomy c subsequent mild left sided deficit s/p IVC filter and on Xarelto who presented earlier today around 9AM after transitional care nurse found patient on the ground and slump to the left side and confused and notable left sided de ficit worsening than baseline. Patient last seen normal was the night before. Patient normally able to do ADLs without need for support. Patient for the past week has been having increase weakness and imbalance with falls. She denies loss of consciousness. She reports headaches. No vision change. No URIs. No fever. No chest pain. Palpitation. No SOB. No n/v/d. No dysuria. She has had swelling in her lower extremities and take furosemide. Patient gets her medication via a timed dispensary machine and transitional care nurse reports no missed doses. Patient arrived earlier today this morning. She was seen by ED staff. ED staff report patient to day time hospitalist. 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 No neurology consulted per ED staff. CT head negative. Pending CTA and MRI. Patient received Plavix and atorvastatin. She has allergy to ASA. Request was made to admit patient for stroke workup. History - Past Medical History Cardiovascular: reports: Congestive heart failure, Deep vein thrombosis, Other (Factor V Leiden) Meds/Allgy - Home Medications Home Medications: Ambulatory Orders Medication Instructions Recorded Confirmed Albuterol Sulf [Ventolin Hfa 1 - 2 puffs INH Q4HR PRN 03/14/22 03/14/22 Inhaler] Amitriptyline [Elavil] 25 mg PO QPM 03/14/22 03/14/22 Donepezil HCl [Aricept] 10 mg PO DAILY 03/14/22 03/14/22 Furosemide [Lasix] 20 mg PO BID 03/14/22 03/14/22 Isosorbide Mononitrate [Isosorbide 60 mg PO DAILY 03/14/22 03/14/22 Mononitrate ER] Potassium Chloride 20 meq PO DAILY 03/14/22 03/14/22 Rivaroxaban [Xarelto] 20 mg PO DAILY 03/14/22 03/14/22 Tiotropium [place] [Spiriva See Rx Instructions .ROUTE .COMPLEX 03/14/22 03/14/22 Respimat] minoxidiL [Minoxidil] 2.5 mg PO BID 03/14/22 03/14/22 - Allergies Allergies/Adverse Reactions: Allergies Allergy/AdvReac Type Severity Reaction Status Date / Time aspirin Allergy Unknown Verified 02/18/22 11:38 cortisone Allergy Hives Verified 01/04/22 12:56 lisinopril Allergy Unknown Verified 01/04/22 12:56 Review of Systems - Constitutional Constitutional: reports: Other (positive SMART). denies: Fever (10 points review of system negative unless mentioned differently in the HPI) - Eyes Eyes: denies: Vision loss - Cardiovascular Cariovascular: denies: Chest pain - Respiratory Respiratory: denies: SOB at rest, SOB with exertion - Gastrointestinal Gastrointestinal: denies: Abdominal pain, Diarrhea, Nausea, Vomiting - Genitourinary Genitourinary: denies: Dysuria - Integumentary Integumentary: denies: Rash - Neurological Neurological: reports: Headache, Other (left sided weakness) Exam - Vital Signs Reviewed Vital Signs: Yes Vital Signs: Vital Signs x48h Pulse Resp BP Pulse Ox 03/14/22 20:00 97 21 194/95 H 03/14/22 19:30 96 22 189/100 H 03/14/22 19:03 104 H 18 191/105 H 100 03/14/22 16:43 94 14 178/85 H 99 03/14/22 16:04 96 17 172/90 H 99 03/14/22 14:05 102 H 23 162/66 H 99 - Physical Exam General Appearance: positive: No acute distress Eyes Bilateral: positive: Normal inspection Neck: positive: Nml inspection Respiratory: positive: Other (clear to ausculatation) Cardiovascular: positive: Regular rate & rhythm Abdomen: positive: No distention. negative: Tenderness, Guarding, Rebound Skin: positive: Color nml Neurologic/Psychiatric: positive: Other (LUE 4/5. LLE 3/5) Conclusion/Plan - Problem List (1) Cerebrovascular accident (CVA) Conclusion/Plan: worsening left side weakness and hx concerning for recurrent stroke despite on Xarelto and having an IVC filter. time of admission 19:53 despite presenting to the ED in am. consider d/w neurology especially if positive for stroke despite on Xarelto. stroke protocol. neuro checks. fall precaution. PT/OT. permissive hypertension. continue Xarelto and Plavix. allergy to ASA. proceed with MRI brain, carotid stds, and echo. followup Lipid panel and Hgab1c for risk assessment. stop smoking counseling given. Qualifiers: CVA mechanism: thrombosis Laterality of affected vessel: right (2) Dementia Conclusion/Plan: stable. patient just got started on Donepezil and has not start. hold for now and start on discharge Qualifiers: Dementia severity: mild (3) Congestive heart failure Conclusion/Plan: stable. no acute decompensation. continue on Furosemide. monitor electrolytes. followup echo. monitor I&O an daily weigh. Qualifiers: Heart failure type: unspecified Heart failure chronicity: unspecified Qualified Code(s): I50.9 - Heart failure, unspecified (4) Hypertension Conclusion/Plan: controlled on presentation. permissive hypertension in setting of acute CVA. stroke protocol. intervene BP >220/120 monitor BP with vital checks. - Lab Results Lab results reviewed: Yes Fish Bones: 03/14/22 11:44 03/14/22 13:10 - Diagnostic Imaging Results Diagnostic Imaging Results: positive: Final report reviewed
[2022-03-14] MEDS ORDERED: NON FORMULARY MED (Tiotropium Bromide [Spiriva Respimat] 4 GM Mist.Inhal) INH SCH (21:00)
[2022-03-14] MEDS: FUROSEMIDE 20 MG TABLET PO SCH (21:41)
[2022-03-14] MEDS: ATORVASTATIN 40 MG TABLET PO SCH (21:41)
[2022-03-14] MEDS: AMITRIPTYLINE 25 MG TABLET PO SCH (21:41)
[2022-03-15] MEDS: SODIUM CHLORIDE FLUSH 0.9% 10 ML SYRINGE IVP SCH ×3 (00:41→17:26)
[2022-03-15 05:22] LABS: BASOPHILS % (AUTO) 0.6 %; EOSINOPHILS # (AUTO) 0.2 10^3/uL (0.0-0.7); EOSINOPHILS % (AUTO) 2.4 %; HCT - HEMATOCRIT 41.6 % (37.0-47.0); HGB - HEMOGLOBIN 13.1 g/dL (12.0-16.0); LYMPHOCYTES # (AUTO) 1.4 10^3/uL (1.5-3.5); LYMPHOCYTES % (AUTO) 19.3 %; MEAN CORPUSCULAR HEMOGLOBIN 26.8 pg (27.0-31.0); MEAN CORPUSCULAR HGB CONC 31.5 g/dL (32.0-36.0); MEAN CORPUSCULAR VOLUME 85.2 fL (81.0-99.0); MEAN PLATELET VOLUME 10.4 fL (7.9-10.8); MONOCYTES # (AUTO) 0.4 10^3/uL (0.0-1.0); MONOCYTES % (AUTO) 6.1 %; NEUTROPHILS # (AUTO) 5.1 10^3/uL (1.5-6.6); NEUTROPHILS % (AUTO) 71.3 %; PLT - PLATELET COUNT 205 10^3/uL (130-450); RED BLOOD COUNT 4.88 10^6/uL (4.20-5.40); RED CELL DISTRIBUTION WIDTH 13.7 % (12.0-15.0); WHITE BLOOD COUNT 7.2 x10^3/uL (4.8-10.8)
[2022-03-15 05:28] LABS: CALCIUM 8.6 mg/dL (8.5-10.3); CREATININE 1.6 mg/dL (0.4-1.0); POTASSIUM 3.8 mmol/L (3.5-5.0)
[2022-03-15 05:36] LABS: CHOL/HDL RATIO 3.5 (<4.4); CHOLESTEROL 182 mg/dL; HDL CHOLESTEROL 52 mg/dL; LDL CHOLESTEROL,CALCULATED 116 mg/dL; LDL/HDL RATIO 2.2 (<4.4); TRIGLYCERIDES 68 mg/dL; VLDL CHOLESTEROL 14 mg/dL
[2022-03-15] MEDS: PANTOPRAZOLE 40 MG TABLET PO SCH (06:50)
[2022-03-15] MEDS ORDERED: NON FORMULARY MED (Rivaroxaban [Xarelto] 20 MG Tablet) PO SCH (09:00)
[2022-03-15] MEDS: APIXABAN 5 MG TABLET PO SCH ×2 (09:14→21:13)
[2022-03-15] MEDS: FUROSEMIDE 20 MG TABLET PO SCH ×2 (09:14→21:14)
[2022-03-15] MEDS: CLOPIDOGREL 75 MG TABLET PO SCH (09:14)
[2022-03-15] MEDS ORDERED: GADOBUTROL 15 MMOL/15 ML VIAL ONE (09:25)
[2022-03-15] MEDS ORDERED: iohexoL-300 100 ML VIAL ONE (09:39)
--- NOTE | 2022-03-15 11:09 | PHARMACY PROGRESS NOTE ---
- Best Possible Medication History Admit Date and Time: 03/14/222022 Processed by: Nursing Medication History completed: Yes As the person ultimately responsible for medication therapy, providers are able to order a medication from an existing home medication list in [facility] via the "Reconcile Routine" prior to Confirmation of that medication by print support specialist. Such practice is discouraged except when the physician, in their clinical judgment, deems that a medical need exists for a medication without regard to previous use.
--- NOTE | 2022-03-15 11:11 | MRI Report ---
PROCEDURE: BRAIN WO INDICATIONS: stroke TECHNIQUE: Noncontrast axial T1 spin echo, axial T2 fast spin echo, sagittal and axial FLAIR, coronal T2 fast sp in echo, axial gradient echo, axial diffusion and ADC through the brain. COMPARISON: Correlation is made with recent prior head CT, 03/14/2022. FINDINGS: Image quality: Motion artifact is noted. CSF Spaces: Basal cisterns are patent. No extra-axial fluid collections. Ventricles are normal in size and shape. Brain: No intracranial masses or hemorrhage. Green/white matter interface is normal. Brainstem appe ars normal. Diffusion-weighted images demonstrate no acute ischemic insult. Remote infarcts can be s een involving the inferior occipital lobes on both sides, as seen on series 8 image 8. Normal intrava scular flow voids are present. Age-appropriate brain parenchymal volume loss and chronic small vesse l ischemic change can be seen. Skull and face: Calvarium has normal marrow signal. Orbits appear normal. Sinuses: Sinuses and mastoids are clear. IMPRESSION: No findings of acute or subacute infarction are seen. Remote inferior bilateral occipital lobe infarctions can be seen. Age-appropriate brain parenchymal volume loss and chronic small vessel ischemic change can be seen. Reviewed by: Frederick Manuel MD on 03/15/2022 10:10 AM [facility] Approved by: Frederick Manuel MD on 03/15/2022 10:10 AM [facility] Station ID: [id number]
[2022-03-15] MEDS ORDERED: iohexoL-300 100 ML VIAL IVP ONE (11:31)
--- NOTE | 2022-03-15 11:58 | CT Report ---
PROCEDURE: ANGIO HEAD W/WO INDICATIONS: stroke CONTRAST: 80ml omni 300 TECHNIQUE: Precontrast 4.5 mm thick angled axial sections acquired from the foramen magnum to the vertex. Afte r the administration of intravenous contrast, 1 mm thick sections acquired through the [place] is. Postcontrast 4.5 mm thick sections then re-acquired from the foramen magnum to the vertex. 3-di mensional sjqgevt-ztquceaup-vsogpxojjm (MIP) and/or volume rendering reformats were acquired of the c entral intracranial vasculature. For radiation dose reduction, the following was used: automated ex posure control, adjustment of mA and/or kV according to patient size. COMPARISON: Correlation is made with the accompanying CT neck angiogram as well as the accompanying brain MRI, 03/15/2022. Correlation is also made with head CT examinations, 03/14/2022 and 02/18/2022. FINDINGS: Image quality: There is streak artifact seen through the skull base. Anterior circulation: Intracranial internal carotid arteries are normal in size and flow. Within th e right A2 segment there is focal proximal a 80% stenosis, as on series 6 image 98. The flow within t he paired anterior cerebral arteries is otherwise normal and symmetric. The flow within the middle c erebral arteries is normal and symmetric. The anterior communicating artery is seen. No aneurysms a re seen. Posterior circulation: Visualized portions of the vertebral arteries demonstrate normal caliber, and join to form a normal appearing basilar artery. Flow within the posterior cerebral arteries is norm al and symmetric. No aneurysms are seen. CSF spaces: Ventricles are normal in size and shape. Basal cisterns are patent. No extra-axial flu id collections. Brain: Numerous infarctions are again seen involving the inferior occipital lobes. No midline shift. No intracranial bleeds or masses. Green-white matter interface appears intact. Skull and face: Calvarium and facial bones appear intact, without suspicious lesions. Sinuses: There is moderate right maxillary sinus mucosal thickening, with mild to moderate left maxil miguel sinus mucosal thickening. Postoperative change is seen, with bilateral antrectomy. No significan t abnormal fluid can be seen within the mastoid air cells. IMPRESSION: Focal area of approximately 80% stenosis involving the right A2 segment. No additional significant intracranial stenosis is identified. Remote bilateral occipital lobe infarctions inferiorly. Additional findings: Focal right-sided paranasal sinus disease Prior bilateral antrectomy Reviewed by: Frederick Manuel MD on 03/15/2022 10:56 AM BABAK Approved by: Frederick Manuel MD on 03/15/2022 10:56 AM BABAK Station ID: [id number]
--- NOTE | 2022-03-15 12:03 | CT Report ---
PROCEDURE: ANGIO NECK W INDICATIONS: stroke CONTRAST: 80ml omni 300 TECHNIQUE: After the administration of intravenous contrast, 1.5 mm axial sections acquired from the aortic arch to the [place]. Coronal 3-D maximum intensity projection (MIP) and/or volume rendering ref ormats were then performed. For radiation dose reduction, the following was used: automated exposur e control, adjustment of mA and/or kV according to patient size. COMPARISON: Correlation is made with the accompanying head CT angiogram and brain MRI examinations, 03/15/2022 FINDINGS: Image quality: Excellent. Carotid system: The great vessels demonstrate a conventional anatomy as they arise from the aortic a rch. The origins of the common carotid arteries appear patent. The common carotid arteries demonstr ate normal calibers and courses. The bifurcation regions demonstrate atherosclerotic irregularity an d calcification. No hemodynamically significant stenosis can be seen. Posterior circulation: The origins of the vertebral arteries appear patent. The more superior porti ons of the vertebral arteries demonstrate normal course and caliber. They join to form a normal appe aring basilar artery. Soft tissues: Visualized neck soft tissues demonstrate no suspicious abnormalities. The thyroid is normal in size and there are no incidental findings. A right-sided central line is partially seen. Bones: No suspicious bony lesions. Visualized cervical spine appears normally aligned. Paranasal s inus disease is noted. Prior bilateral antrectomy change is seen. There is moderate to severe disc sp stephen narrowing seen at C5-C6, with endplate irregularity and sclerosis and posteriorly directed endpla te osteophytes. Moderate disc space narrowing is seen at C4-C5. IMPRESSION: No hemodynamically significant stenosis can be seen within the neck. Additional findings: Paranasal sinus disease Prior bilateral antrectomy Focal C5-C6 degenerative change Right-sided central line The estimate of stenosis included in the report of the imaging study was calculated using the NASCET method Reviewed by: Frederick Manuel MD on 03/15/2022 11:01 AM AKST Approved by: Frederick Manuel MD on 03/15/2022 11:01 AM AK Station ID: [id number]
[2022-03-15 12:05] LABS: ESTIMATED AVERAGE GLUCOSE 117 mg/dL (70-100); HEMOGLOBIN A1c% 5.7 % (4.27-6.07)
--- NOTE | 2022-03-15 16:55 | PROVIDER PROGRESS NOTE ---
Subjective - Prog Note Date Prog Note Date: 03/15/22 Prog Note Time: 16:53 - Subjective Pt reports feeling: Improved Subjective: Overnight she has had complete resolution of her left-sided deficits. She does have residual from previous strokes. She has a protein C protein S and factor V Leiden deficiency. So she is on Xarelto. Xarelto was held in the ER thinking that she was having a stroke and they did not want to converted to hemorrhagic stroke. Today she is a delightful person. She says she cannot believe all of this happened because she feels like she is fine. Brain MRI was done and she has old bibasilar strokes. Numerous infarctions. No midline shift. But there are no findings of acute or subacute infarction seen. She has age-appropriate parenchymal loss. CT angiograms of the head and neck showed her to have a right A2 segment 80% stenosis. Otherwise the flow within the paired anterior cerebral arteries was symmetric and normal. Flow in the middle cerebral arteries was normal and symmetric. The anterior communicating artery was seen and there were no aneurysms. The posterior circulation was also normal. The neck arteries did not have stenosis either. Physical therapy did evaluate her today. He found her with some cognitive deficits and she could not remember why she was here. She is bon vivant and she loves to converse. Long rambling conversations about her marriage, her previous job working in a [employer]. She usually uses a four-wheel walker at home. Right now she is ambulating 90 feet with contact-guard assist and transfers with a contact-guard assist to min assist. They are recommending intermediate facility placement. But she and her power of health care attorney are not ready to make that decision yet. Apparently there will be an assessment next Friday, and the patient may be a candidate for in-home caregiving that they would like to avail themselves of. Current Medications - Current Medications Current Medications: Active Medications Acetaminophen (Acetaminophen 325 Mg Tablet) 650 mg PO Q4HR PRN PRN Reason: Pain 1 to 4, or Fever Amitriptyline HCl (Amitriptyline 25 Mg Tablet) 25 mg PO QPM [facility] Last Admin: 03/14/22 21:41 Dose: 25 mg Apixaban (Apixaban 5 Mg Tablet) 5 mg PO BID [facility] Last Admin: 03/15/22 09:14 Dose: 5 mg Atorvastatin Calcium (Atorvastatin 40 Mg Tablet) 80 mg PO QPM [facility] Last Admin: 03/14/22 21:41 Dose: 80 mg Clopidogrel Bisulfate (Clopidogrel 75 Mg Tablet) 75 mg PO DAILY [facility] Last Admin: 03/15/22 09:14 Dose: 75 mg Furosemide (Furosemide 20 Mg Tablet) 20 mg PO BID [facility] Last Admin: 03/15/22 09:14 Dose: 20 mg Ipratropium [place] (Ipratropium 0.2 Mg/Ml Neb) 0.5 mg INH RTQ6H [facility] Ondansetron HCl (Ondansetron 4 Mg/2 Ml Vial) 4 mg IVP Q6HR PRN PRN Reason: Nausea / Vomiting Pantoprazole Sodium (Pantoprazole 40 Mg Tablet) 40 mg PO QDAC [facility] Last Admin: 03/15/22 06:50 Dose: 40 mg Sodium Chloride (Sodium Chloride Flush 0.9% 10 Ml Syringe) 10 ml IVP PRN PRN PRN Reason: NEEDED PER PROVIDER ORDERS Sodium Chloride (Sodium Chloride Flush 0.9% 10 Ml Syringe) 10 ml IVP 0100,0900,1700 [facility] Last Admin: 03/15/22 09:14 Dose: 10 ml Albuterol Sulf [Ventolin Hfa Inhaler] 1 - 2 puffs INH Q4HR PRN 03/14/22 Amitriptyline [Elavil] 25 mg PO QPM 03/14/22 Donepezil HCl [Aricept] 10 mg PO DAILY 03/14/22 Furosemide [Lasix] 20 mg PO BID 03/14/22 Isosorbide Mononitrate [Isosorbide Mononitrate ER] 60 mg PO DAILY 03/14/22 Potassium Chloride 20 meq PO DAILY 03/14/22 Rivaroxaban [Xarelto] 20 mg PO DAILY 03/14/22 Tiotropium [place] [Spiriva Respimat] See Rx Instructions .ROUTE .COMPLEX 03/14/22 minoxidiL [Minoxidil] 2.5 mg PO BID 03/14/22 Objective - Vital Signs/Intake & Output Reviewed Vital Signs: Yes Vital Signs: Vital Signs x48h Temp Pulse Resp BP Pulse Ox 03/15/22 15:42 36.8 C 72 18 146/65 H 97 03/15/22 13:17 36.9 C 65 20 149/61 H 100 Intake & Output: Intake & Output 0103/13/22 03/14/22 03/15/22 23:59 23:59 23:59 23:59 Intake Total 1200.00 1240 Output Total 225 650 Balance 975.00 590 - Objective General Appearance: positive: Alert, Other (Moderately obese elderly female with long flowing [place] hair, sitting upright in bed, trying to figure out how to use the remote.) Eyes Bilateral: positive: PERRL, EOMI ENT: positive: No signs of dehydration Neck: positive: No JVD. negative: Stiff neck Respiratory: positive: No respiratory distress. negative: Wheezes, Rales, Rhonchi Cardiovascular: positive: Regular rate & rhythm Abdomen: positive: Non-tender, No organomegaly, Nml bowel sounds, No distention Skin: positive: Warm, Dry Extremities: positive: Full ROM, Pedal edema Neurologic/Psychiatric: positive: CN's nml (2-12), Disoriented to time. negative: Motor nml (While she does not have the dense left sided findings that she had yesterday, she has a generalized weakness. She cannot sit up on her own and needs someone to help her sit up from bed, and a lap belt to then transition over to the toilet or to her chair. Balance is impaired. She is ataxic.), Facial droop, Slurred/abnml speech, Depressed mood/affect - Lab Results Fish Bones: 03/15/22 05:10 03/15/22 05:10 Other Labs: Lab Results x24hrs 03/15/22 03/15/22 03/15/22 Range/Units 05:10 05:10 05:10 WBC (4.8-10.8) x10^3/uL RBC (4.20-5.40) 10^6/uL Hgb (12.0-16.0) g/dL Hct (37.0-47.0) % MCV (81.0-99.0) fL MCH (27.0-31.0) pg MCHC (32.0-36.0) g/dL RDW (12.0-15.0) % Plt Count (130-450) 10^3/uL MPV (7.9-10.8) fL Neut # (Auto) (1.5-6.6) 10^3/uL Lymph # (Auto) (1.5-3.5) 10^3/uL [place] # (Auto) (0.0-1.0) 10^3/uL Eos # (Auto) (0.0-0.7) 10^3/uL Baso # (Auto) (0.0-0.1) 10^3/uL Absolute Nucleated RBC x10^3/uL Nucleated RBC % /100WBC Sodium 143 (135-145) mmol/L Potassium 3.8 (3.5-5.0) mmol/L Chloride 109 (101-111) mmol/L Carbon Dioxide 23 (21-32) mmol/L Anion Gap 11.0 (6-13) BUN 32 H (6-20) mg/dL Creatinine 1.6 H (0.4-1.0) mg/dL Estimated GFR (MDRD) 32 L (>89) Glucose 91 (70-100) mg/dL Estimat Average Glucose 117 H (70-100) mg/dL Hemoglobin A1c % 5.7 (4.27-6.07) % Calcium 8.6 (8.5-10.3) mg/dL Triglycerides 68 ( - 149) mg/dL Cholesterol 182 ( - 199) mg/dL LDL Cholesterol, Calc 116 ( - 129) mg/dL VLDL Cholesterol 14 mg/dL HDL Cholesterol 52 L (60 - ) mg/dL LDL/HDL Ratio 2.2 (<4.4) Cholesterol/HDL Ratio 3.5 (<4.4) 03/15/22 Range/Units 05:10 WBC 7.2 (4.8-10.8) x10^3/uL RBC 4.88 (4.20-5.40) 10^6/uL Hgb 13.1 (12.0-16.0) g/dL Hct 41.6 (37.0-47.0) % MCV 85.2 (81.0-99.0) fL MCH 26.8 L (27.0-31.0) pg MCHC 31.5 L (32.0-36.0) g/dL RDW 13.7 (12.0-15.0) % Plt Count 205 (130-450) 10^3/uL MPV 10.4 (7.9-10.8) fL Neut # (Auto) 5.1 (1.5-6.6) 10^3/uL Lymph # (Auto) 1.4 L (1.5-3.5) 10^3/uL [place] # (Auto) 0.4 (0.0-1.0) 10^3/uL Eos # (Auto) 0.2 (0.0-0.7) 10^3/uL Baso # (Auto) 0.0 (0.0-0.1) 10^3/uL Absolute Nucleated RBC 0.00 x10^3/uL Nucleated RBC % 0.0 /100WBC Sodium (135-145) mmol/L Potassium (3.5-5.0) mmol/L Chloride (101-111) mmol/L Carbon Dioxide (21-32) mmol/L Anion Gap (6-13) BUN (6-20) mg/dL Creatinine (0.4-1.0) mg/dL Estimated GFR (MDRD) (>89) Glucose (70-100) mg/dL Estimat Average Glucose (70-100) mg/dL Hemoglobin A1c % (4.27-6.07) % Calcium (8.5-10.3) mg/dL Triglycerides ( - 149) mg/dL Cholesterol ( - 199) mg/dL LDL Cholesterol, Calc ( - 129) mg/dL VLDL Cholesterol mg/dL HDL Cholesterol (60 - ) mg/dL LDL/HDL Ratio (<4.4) Cholesterol/HDL Ratio (<4.4) Assessment/Plan - Problem List (1) TIA (transient ischemic attack) Impression: She is remarkably recovered this morning. There is no hemiplegia. There is no dysarthria. No facial droop. MRI confirms right A2 segment 80% stenosis that may have been the cause of her transient hemiplegia. Her caregiver wants to know what is the most they can do. This patient is already on Xarelto for factor V Leiden. I would recommend lowering her blood pressure to at least 120/70. LDL is 116 and I would recommend getting that to 70. Her home medication list is minoxidil 2.5 twice daily, isosorbide mononitrate, and the Xarelto. She had the Lasix resumed but she has not had her Xarelto or minoxidil resumed today. She does not smoke. She is not a diabetic. A1c is 5.7%.A statin was started last night. Plan: Physical therapy is already work with her today. We do not have PT on the weekends so she will not get PT on Friday and Friday. She and her caregiver will not be taking to a intermediate facility and they plan on getting her home. I will Resume her minoxidil And continue the statin. (2) Hypertension Impression: As above. Increase Minoxidil Qualifiers: Hypertension type: primary hypertension Qualified Code(s): I10 - Essential (primary) hypertension (3) Chronic congestive heart failure Impression: No new shortness of breath. Lung exam negative. No JVD. Appears to be euvolemic. I will resume the Lasix. 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 Has lots of great stories. Her power of health care attorney is her caregiver. They moved her out of a 3500 square foot home that was falling apart and moved her to a small home right next to theirs. They see her every day. They are worried about taking her home tonight. They think they can make due between Friday and Friday before they can get caregivers arranged. As such I will keep her 1 more night. I will also resumed her Aricept. Qualifiers: Dementia type: associated with other underlying disease Dementia severity: mild Dementia behavioral or psychological symptom: without behavioral, psychotic, or mood disturbance or anxiety Qualified Code(s): F02.A0 - Dementia in other diseases classified elsewhere, mild, without behavioral disturbance, psychotic disturbance, mood disturbance, and anxiety
[2022-03-15] MEDS: AMITRIPTYLINE 25 MG TABLET PO SCH (21:13)
[2022-03-15] MEDS: ATORVASTATIN 40 MG TABLET PO SCH (21:14)
[2022-03-15] MEDS: Minoxidil 2.5 MG Tablet PO SCH (21:14)
[2022-03-16] MEDS: SODIUM CHLORIDE FLUSH 0.9% 10 ML SYRINGE IVP SCH ×2 (00:39→09:26)
[2022-03-16 05:05] LABS: BASOPHILS # (AUTO) 0.1 10^3/uL (0.0-0.1); BASOPHILS % (AUTO) 0.9 %; EOSINOPHILS # (AUTO) 0.2 10^3/uL (0.0-0.7); HCT - HEMATOCRIT 39.8 % (37.0-47.0); HGB - HEMOGLOBIN 12.7 g/dL (12.0-16.0); LYMPHOCYTES # (AUTO) 1.8 10^3/uL (1.5-3.5); LYMPHOCYTES % (AUTO) 26.7 %; MEAN CORPUSCULAR HEMOGLOBIN 27.3 pg (27.0-31.0); MEAN CORPUSCULAR HGB CONC 31.9 g/dL (32.0-36.0); MEAN CORPUSCULAR VOLUME 85.6 fL (81.0-99.0); MONOCYTES # (AUTO) 0.5 10^3/uL (0.0-1.0); MONOCYTES % (AUTO) 7.7 %; NEUTROPHILS # (AUTO) 4.2 10^3/uL (1.5-6.6); NEUTROPHILS % (AUTO) 61.6 %; PLT - PLATELET COUNT 186 10^3/uL (130-450); RED BLOOD COUNT 4.65 10^6/uL (4.20-5.40); RED CELL DISTRIBUTION WIDTH 13.8 % (12.0-15.0); WHITE BLOOD COUNT 6.9 x10^3/uL (4.8-10.8)
[2022-03-16] MEDS: PANTOPRAZOLE 40 MG TABLET PO SCH (05:08)
[2022-03-16 05:15] LABS: CALCIUM 8.5 mg/dL (8.5-10.3); CREATININE 1.5 mg/dL (0.4-1.0); POTASSIUM 3.5 mmol/L (3.5-5.0)
[2022-03-16] MEDS: IPRATROPIUM 0.2 MG/ML NEB INH SCH ×2 (05:33→05:34)
[2022-03-16] MEDS ORDERED: ISOSORBIDE MONONITRATE ER 30 MG TABLET PO SCH (09:00)
--- NOTE | 2022-03-16 09:11 | Discharge Plan ---
Discharge Plan Problem Reviewed?: Yes Disposition: Home Health Service Condition: Serious Prescriptions: Aspirin EC [Ecotrin] 81 mg PO DAILY #180 tablet Atorvastatin [Lipitor] 80 mg PO QPM #30 tab Diet: Cardiac Activity Restrictions: Activity as Tolerated Shower Restrictions: No Driving Restrictions: Yes (no driving) Assistance Devices: Wheelchair, Walker Health Concerns: You are an overweight lady who has a history of high blood pressure, and previous strokes due to blood clotting disorder that came in with a very severe left-sided weakness, facial droop, and inability to speak. The episode did not last very long and you resolved on your own without any intervention on our part. The CAT scan of your head and the MRI of your brain did not show a new stroke. You have old strokes in the back of your brain. However when we did a study of the arteries of your brain with an angiogram, the angiogram shows that you have an 80% blockage of 1 small artery on the right side of your brain called the right A2 segment. We think this is the reason you had temporary loss of brain function on the left side. After physical therapy evaluated you, they do feel that you are deconditioned, weak. Not so much from this current episode of transient stroke but more from just being out of shape and being your age. And you are very overweight. Overall they recommend long-term placement in a [facility]. Plan of Treatment: 1. Your power of mergers and acquisitions attorney, neighbor, and good friend has been helping take care of you. She is already started the process of getting you evaluated for in- home support care and you have an appointment with that agency on March 19. Please make sure you keep that appointment because if you plan on remaining in your home, you will need a lot of help. 2. I have ordered home health physical therapy, Occupational Therapy, and RN, a social services director and a bath aide to come help you stay at home until your in-home support through the [facility] comes through. 3. In order to reduce your risk of stroke you need to take an aspirin. It says you are allergic to aspirin. Nevertheless I have asked you to take it. If you truly are allergic you will need to take something called Plavix which is much much stronger. I worry about you taking Plavix and Xarelto because you can have an increased risk of bleeding from those 2 medicines. 4. Other other way to reduce your risk of stroke is to make sure that your blood pressure and your cholesterol is perfect. We have started you on a cholesterol drug. The goal is to have your bad cholesterol, called LDL cholesterol, be less than 70. Work with your doctor to see if this cholesterol drug is the right drug for you. I have called in a prescription to the pharmacy. Make sure your blood pressure stays at 120/70. While you were here your blood pressure was high as 146, 168 on the top (systolic) number. You already take minoxidil, isosorbide, and Lasix. These all help lower your blood pressure. I am increasing your minoxidil from 2.5 mg twice a day to 5 mg twice a day. 5. Please make sure you see your primary care provider, Dr. Carlitos Beasley in the next 1 to 2 weeks. Care Goals: At this time the stated care goal is for you to remain in your home for as long as possible with the help of your friend and neighbor and in-home support care. However, the time may come where you really cannot stay at home anymore and you need 24/7 care. If you could possibly start getting your finances together to see if you could go live in assisted living facility or halfway down the road. Assessment: Patient is alert, oriented to place, not time. During conversation she is a delightful storyteller but there are gaps in memory and easily distracted with inability to problem solve Follow-Up Care: Home Health - RN, Home Health - PT, Home Health - OT, Home Health - ST No Smoking: If you smoke, Please STOP! Call for help. Follow-up with: CARLITOS BEASLEY, [Primary Care Provider] -
[2022-03-16] MEDS: CLOPIDOGREL 75 MG TABLET PO SCH (09:25)
[2022-03-16] MEDS: APIXABAN 5 MG TABLET PO SCH (09:25)
[2022-03-16] MEDS: FUROSEMIDE 20 MG TABLET PO SCH (09:25)
[2022-03-16] MEDS: Minoxidil 2.5 MG Tablet PO SCH (09:27)
--- NOTE | 2022-03-16 09:28 | DISCHARGE SUMMARY ---
"Discharge Summary Admit Date: 03/14/22 Discharge Date: 03/16/22 Discharging Provider: Marta Castro MD Primary Care Provider: Carlitos Forrest MD [facility] Code Status: Do Not Attempt Resuscitation Condition at Discharge: Fair Discharge Disposition: Home Health Service - DIAGNOSES Discharge Diagnoses with Status of Each Condition: 1. TIA, left-sided 2. Right A2 segment 80% stenosis, intracranial artery 3. Factor V Leiden deficiency 4. History of strokes associated with blood clotting tendency 5. gait ataxia 6. hypertension 7. chronic systolic heart failure 8. residual Cognitive deficit as late effect of stroke - HPI History of Present Illness: 71YOF c tobacco abuse, hx of stroke due to hypercoagulable state c prior stroke and craniotomy c subsequent mild left sided deficit s/p IVC filter and on Xarelto who presented earlier today around 9AM after foster care case manager found patient on the ground and slump to the left side and confused and notable left sided deficit worsening than baseline. Patient last seen normal was the night before. Patient normally able to do ADLs without need for support. Patient for the past week has been having increase weakness and imbalance with falls. She denies loss of consciousness. She reports headaches. No vision change. No URIs. No fever. No chest pain. Palpitation. No SOB. No n/v/d. No dysuria. She has had swelling in her lower extremities and take furosemide. Patient gets her medication via a timed dispensary machine and foster care case manager reports no missed doses. Patient arrived earlier today this morning. She was seen by ED staff. ED staff report patient to day time hospitalist. Request for admission was sent to the night [facility] medicine log raft worker 19:53. No neurology consulted per ED staff. CT head negative. Pending CTA and MRI. Patient received Plavix and atorvastatin. She has allergy to ASA. Request was made to admit patient for stroke workup. History - Past Medical History Cardiovascular: reports: Congestive heart failure, Deep vein thrombosis, Other (Factor V Leiden) - CONSULTS | PROCEDURES Procedures: 1. Head CT head no CT evidence of acute intracranial abnormality. No changes from February 18, 2022 where there is periventricular and deep white matter chronic vessel ischemic changes. 2. 2 chest x-rays. Suggestive of mild atypical pneumonia. 3. Brain MRI had no findings of acute or subacute infarction. She has remote inferior bilateral occipital lobe infarctions that were seen. Head and neck CT angiogram. She had a right A2 segment with focal proximal 80% stenosis. Otherwise the rest of her intracerebral and extracerebral circulation appeared without significant stenosis. - HOSPITAL COURSE Hospital Course: She was admitted by the telemed service with a left-sided deficit that was acute worse and superimposed on her chronic left-sided deficit. I had briefly seen her in the emergency room as I was walking through the night before and noted the ambulance bringing her in. As the ambulance crew presented her to the ER provider, I saw that a dense hemiplegia and dysarthria were present. I then we saw the patient the morning after admission, and all of her acute deficit had resolved and she was left with a minimal left residual that has been present before according to caregiver/neighbor. She was an alert, oriented, prolific conversationalist. Loved to tell stories. She gesticulates, laughs spontaneously, and has no deficit other than the slight left facial deficit from previous stroke. Her CT angiogram showed her to have a focal 80% stenosis in the right a 1 segment which may have caused her temporary left-sided deficit. MRI of the brain, CT of the brain confirmed the previous bibasilar strokes. Physical therapy evaluated her and found her to have cognitive deficits, ataxia, weakness. High risk for falls. Because she lives alone they felt that she was probably a candidate for long-term placement. She lives in her own home and is advocated for by her power of transactional attorney and friend who lives next-door. She is in the process of getting evaluated for in-home support services and that meeting is next Friday (today is Friday). As such she is going to be discharged to home. She will be getting in-home support care. I will be ordering home health with PT/OT/social media marketer/bath aide/RN. New medication is atorvastatin to bring her LDL down below 70. She is already on Xarelto and is supposedly allergic to aspirin. Theoretically she could be on Plavix but I am worried about combining Plavix and Xarelto and lady who is at high risk for falls. Her current caregiver/POA is experiencing caregiver burnout. Social work spoke to her and explained that she could probably stay at home with all of the support she is currently getting. But that as her needs increased, and caregiving needed to increase, start the process for placing her in a longterm, assisted living facility or [place] [facility]. At discharge temperature was 36.8. Heart rate 100. But she was 56 5 hours previously. Blood pressure 165/85. Respirations 18. 99% on room air. Of very talkative elderly female, and who did not have any respiratory distress with speaking so much. Spontaneous gesticulations. Spontaneous laughing. She did have a very slight left facial droop. But tongue was midline. No dysphagia or dysarthria. Lungs were clear. Regular rate and rhythm. Abdomen soft and nontender. Physical therapy evaluated her since she sat 2 steps to enter into her home without handrails. The patient uses a cane and a rollator. She was able to ambulate 90 feet with contact-guard assist, and transfers with contact- guard assist, min assist. Greater than 30 minutes was spent coordinating discharge. Home health was ordered. - ALLERGIES Allergies/Adverse Reactions: Allergies Allergy/AdvReac Type Severity Reaction Status Date / Time aspirin Allergy Unknown Verified 02/18/22 11:38 cortisone Allergy Hives Verified 01/04/22 12:56 lisinopril Allergy Unknown Verified 01/04/22 12:56 - MEDICATIONS Home Medications: Ambulatory Orders Medication Instructions Recorded Confirmed Albuterol Sulf [Ventolin Hfa 1 - 2 puffs INH Q4HR PRN 03/14/22 03/14/22 Inhaler] Amitriptyline [Elavil] 25 mg PO QPM 03/14/22 03/14/22 Donepezil HCl [Aricept] 10 mg PO DAILY 03/14/22 03/14/22 Furosemide [Lasix] 20 mg PO BID 03/14/22 03/14/22 Isosorbide Mononitrate [Isosorbide 60 mg PO DAILY 03/14/22 03/14/22 Mononitrate ER] Potassium Chloride 20 meq PO DAILY 03/14/22 03/14/22 Rivaroxaban [Xarelto] 20 mg PO DAILY 03/14/22 03/14/22 Tiotropium [place] [Spiriva See Rx Instructions .ROUTE .COMPLEX 03/14/22 03/14/22 Respimat] minoxidiL [Minoxidil] 2.5 mg PO BID 03/14/22 03/14/22 Aspirin EC [Ecotrin] 81 mg PO DAILY #180 tablet 03/16/22 Atorvastatin [Lipitor] 80 mg PO QPM #30 tab 03/16/22 - LABS Result Diagrams: 03/16/22 04:56 03/16/22 04:56"
[2022-03-16 14:27] VITALS: BP 165/85
== END 2022-03-16 13:30 | disposition home health service (06) | DRG 68 ==
LOC: EDUNIT# → ED 10:45 → MS2 20:23
PROVIDERS: ADMIT Internal Medicine; ATTEND Specialist
DX: I63.9 Cerebral infarction, unspecified (principal); G81.94 Hemiplegia, unspecified affecting left nondominant side; I66.8 Occlusion and stenosis of other cerebral arteries; I50.9 Heart failure, unspecified; R29.708 NIHSS score 8; I50.22 Chronic systolic (congestive) heart failure; I69.354 Hemiplegia and hemiparesis following cerebral infarction affecting left non-dominant side; D68.51 Activated protein C resistance; Z20.822 Contact with and (suspected) exposure to COVID-19; I11.0 Hypertensive heart disease with heart failure; R53.1 Weakness; E66.9 Obesity, unspecified; F02.A0 Dementia in other diseases classified elsewhere, mild, without behavioral disturbance, psychotic disturbance, mood disturbance, and anxiety; Z68.31 Body mass index [BMI] 31.0-31.9, adult; Z79.01 Long term (current) use of anticoagulants; I69.319 Unspecified symptoms and signs involving cognitive functions following cerebral infarction; I69.393 Ataxia following cerebral infarction; Z86.718 Personal history of other venous thrombosis and embolism; Z91.81 History of falling; Z88.8 Allergy status to other drugs, medicaments and biological substances; Z78.1 Physical restraint status
CPT/HCPCS: 36415; 36556; 70450; 70496; 70498; 70551; 71045; 80048; 80053; 80061; 81001; 83036; 84484; 85025; 85610; 87633; 93005; 97162; 97166; 99284; 99285; A9270; A9585; Q9967; 81003; 83721; 87086

== ENCOUNTER 2022-05-21 10:16 | Outpatient (CLI) | payer MEDICARE, OTHER | END 2022-05-21 10:17 | disposition critical access hospital (66) | LOC: EMS 10:16 | DX: R07.81 Pleurodynia (principal); W18.39XA Other fall on same level, initial encounter; W22.8XXA Striking against or struck by other objects, initial encounter; Y92.002 Bathroom of unspecified non-institutional (private) residence as the place of occurrence of the external cause; R53.1 Weakness; R26.81 Unsteadiness on feet; Z79.01 Long term (current) use of anticoagulants | CPT/HCPCS: A0425; A0429 ==

== ENCOUNTER 2022-05-21 10:47 | Inpatient (IN) | payer MEDICARE, OTHER ==
--- NOTE | 2022-05-21 10:57 | ED Physician Documentation ---
PD HPI Fall - Stated complaint Stated Complaint: GLF - Chief complaint Chief Complaint: General - History obtained from History obtained from: Patient, EMS (Medics report altered mentation on their arrival. Blood sugar was found to be 30. She is given IV dextrose with improvement in mentation. Sugar had increased to 52.) - History of Present Illness Mechanism of injury: Unknown (The patient states she remembers falling during the night and the last few days. She denies loss of consciousness. She describes general weakness over the last 4 to 5 days and less appetite. Denies fever cough throwing up or diarrhea. She had altered mentation this morning and EMS was called.) Fall distance: Standing position (She fell in the bathroom and struck her left chest wall on the sink or tub. She denies striking her head. No headache. She does have pain in the left anterolateral lower chest upper abdomen.) Where injury occurred: Home Timing - onset: Last night Injury(ies) location: Neck (Some soreness with range of motion.), Chest. No: Head Associated symptoms: No: LOC, AMS Worsens with: Movement, Palpation Contributing factors: Anticoagulated. No: Intoxicated Similar symptoms before: No diagnosis (She states she has had 3-4 episodes of general weakness and falling in the last several days without obvious cause. She states she has had less appetite and less oral intake because of it.) Recently seen: Admitted (She was admitted in March for weakness and hemiparesis with diagnosis of TIA.) Review of Systems Constitutional: denies: Fever, Myalgias Nose: denies: Rhinorrhea / runny nose, Congestion Throat: denies: Sore throat Respiratory: denies: Cough PD PAST MEDICAL HISTORY - Past Medical History Cardiovascular: Congestive heart failure, Deep vein thrombosis, Other Neuro: Dementia, CVA - Present Medications Home Medications: Ambulatory Orders Medication Instructions Recorded Confirmed Albuterol Sulf [Ventolin Hfa 1 - 2 puffs INH Q4HR PRN 03/14/22 03/14/22 Inhaler] Amitriptyline [Elavil] 25 mg PO QPM 03/14/22 03/14/22 Donepezil HCl [Aricept] 10 mg PO DAILY 03/14/22 03/14/22 Furosemide [Lasix] 20 mg PO BID 03/14/22 03/14/22 Isosorbide Mononitrate [Isosorbide 60 mg PO DAILY 03/14/22 03/14/22 Mononitrate ER] Potassium Chloride 20 meq PO DAILY 03/14/22 03/14/22 Rivaroxaban [Xarelto] 20 mg PO DAILY 03/14/22 03/14/22 Tiotropium [place] [Spiriva See Rx Instructions .ROUTE .COMPLEX 03/14/22 03/14/22 Respimat] minoxidiL [Minoxidil] 2.5 mg PO BID 03/14/22 03/14/22 Aspirin EC [Ecotrin] 81 mg PO DAILY #180 tablet 03/16/22 Atorvastatin [Lipitor] 80 mg PO QPM #30 tab 03/16/22 - Allergies Allergies/Adverse Reactions: Allergies Allergy/AdvReac Type Severity Reaction Status Date / Time aspirin Allergy Unknown Verified 05/21/22 10:52 cortisone Allergy Hives Verified 05/21/22 10:52 lisinopril Allergy Unknown Verified 05/21/22 10:52 - Social History Smoking Status: Never smoker PD ED PE NORMAL - Vitals Vital signs reviewed: Yes - General General: No acute distress, Well developed/nourished. No: Alert and oriented X 3 (not sure of date) - HEENT HEENT: Atraumatic, Pharynx benign - Neck Neck: Supple, no meningeal sign, No adenopathy, Other (tender left lower cervical muscles. No deformity. ) - Cardiac Cardiac: RRR, No murmur - Respiratory Respiratory: No respiratory distress, Clear bilaterally, Other (The left anterolateral lower chest wall at the lower ribs has some tenderness. The tenderness extends to the left upper quadrant abdomen. There is some guarding with palpation of the ribs. No guarding or percussion tenderness in the abdomen.) - Abdomen Abdomen: Normal bowel sounds, Non distended - Derm Derm: Normal color, Warm and dry - Neuro Neuro: Normal speech. No: Alert and oriented X 3 (not sure of date) Results - Vitals Vitals: Vital Signs - 24 hr 05/21/22 05/21/22 05/21/22 10:53 11:00 12:37 Temperature 36.9 C Heart Rate 94 81 103 H Respiratory 18 15 18 Rate Blood Pressure 187/92 H O2 Saturation 100 97 05/21/22 05/21/22 05/21/22 13:11 13:30 15:10 Temperature 36.5 C Heart Rate 94 103 H Respiratory 16 17 16 Rate Blood Pressure 172/82 H O2 Saturation 100 Oxygen O2 Source Room air - Labs Labs: Laboratory Tests 05/21/22 05/21/22 05/21/22 11:17 11:17 11:17 WBC 10.1 RBC 5.71 H Hgb 15.4 Hct 47.4 H MCV 83.0 MCH 27.0 MCHC 32.5 RDW 13.5 Plt Count 259 MPV 10.0 Neut # (Auto) 8.3 H Lymph # (Auto) 1.0 L [place] # (Auto) 0.5 Eos # (Auto) 0.2 Baso # (Auto) 0.1 Absolute Nucleated RBC 0.00 Nucleated RBC % 0.0 PT 11.6 INR 1.0 APTT 23.7 L Sodium 138 Potassium 3.8 Chloride 102 Carbon Dioxide 23 Anion Gap 13.0 BUN 30 H Creatinine 1.7 H Estimated GFR (MDRD) 30 L Glucose 112 H Calcium 9.1 Magnesium 2.3 Total Bilirubin 1.2 H AST 132 H ALT 61 H Alkaline Phosphatase 65 Total Creatine Kinase 3034 H* Total Protein 8.1 Albumin 4.3 Globulin 3.8 Albumin/Globulin Ratio 1.1 Lipase 54 H Nasal Adenovirus (PCR) Nasal B. parapertussis DNA (PCR) Nasal Coronavir 229E PCR Nasal Coronavir HKU1 PCR Nasal Coronavir NL63 PCR Nasal Coronavir OC43 PCR Nasal Enterovir/Rhinovir PCR Nasal Influenza B PCR Nasal Influenza A PCR Nasal Parainfluen 1 PCR Nasal Parainfluen 2 PCR Nasal Parainfluen 3 PCR Nasal Parainfluen 4 PCR Nasal RSV (PCR) Nasal B.pertussis DNA PCR Nasal C.pneumoniae (PCR) Fish Human Metapneumo PCR Nasal M.pneumoniae (PCR) Nasal SARS-CoV-2 (PCR) 05/21/22 14:00 WBC RBC Hgb Hct MCV MCH MCHC RDW Plt Count MPV Neut # (Auto) Lymph # (Auto) [place] # (Auto) Eos # (Auto) Baso # (Auto) Absolute Nucleated RBC Nucleated RBC % PT INR APTT Sodium Potassium Chloride Carbon Dioxide Anion Gap BUN Creatinine Estimated GFR (MDRD) Glucose Calcium Magnesium Total Bilirubin AST ALT Alkaline Phosphatase Total Creatine Kinase Total Protein Albumin Globulin Albumin/Globulin Ratio Lipase Nasal Adenovirus (PCR) NOT DETECTED Nasal B. parapertussis DNA (PCR) NOT DETECTED Nasal Coronavir 229E PCR NOT DETECTED Nasal Coronavir HKU1 PCR NOT DETECTED Nasal Coronavir NL63 PCR NOT DETECTED Nasal Coronavir OC43 PCR NOT DETECTED Nasal Enterovir/Rhinovir PCR NOT DETECTED Nasal Influenza B PCR NOT DETECTED Nasal Influenza A PCR NOT DETECTED Nasal Parainfluen 1 PCR NOT DETECTED Nasal Parainfluen 2 PCR NOT DETECTED Nasal Parainfluen 3 PCR NOT DETECTED Nasal Parainfluen 4 PCR NOT DETECTED Nasal RSV (PCR) NOT DETECTED Nasal B.pertussis DNA PCR NOT DETECTED Nasal C.pneumoniae (PCR) NOT DETECTED Fish Human Metapneumo PCR NOT DETECTED Nasal M.pneumoniae (PCR) NOT DETECTED Nasal SARS-CoV-2 (PCR) NOT DETECTED - Rads (name of study) head CT Relevant Findings:: Prelim report reviewed (no ICH nor acute findings.), See rad report cervical CT Relevant Findings:: Prelim report reviewed (no acute fractures), See rad report chest/abd CT Relevant Findings:: Prelim report reviewed (No acute traumatic abnormality identified. Colonic diverticular disease with wall thickening throughout the sigmoid colon), See rad report PD Medical Decision Making - ED course Complexity details: considered differential, d/w patient Reviewed Lab Results: CK is elevated, presume related to recent falls. Renal function is about at baseline. She is not diabetic and does not take diabetes meds. Her daughter has med dispenser at home ("Mark") which keeps close track of meds. Unclear the cause of low sugar other than less oral intake recently. However eating here did not maintain it well. Interesting. ED course: The patient is awake and alert on arrival here. She does have apparent some memory deficit. She can recall the fall last evening and states she did not faint. Pain in the chest area but no other areas. She was given some snacks to eat on arrival here given the low blood sugar prehospital. Interestingly the patient is not diabetic and does not take any diabetes medicines. The patient's blood sugar was good at 112 here. She kept having some snacks and then underwent the lab tests and CT scanning to evaluate for injury. On return from CT, a recheck of her blood sugar was down in the 50s again. She was given another snack and repeat was improved. She was not having altered mentation. Departure - Departure Disposition: ED Place in Observation Clinical Impression: Generalized weakness, History of recent fall, Rhabdomyolysis, Chest wall contusion, Hypoglycemia, Anticoagulant long-term use, Colitis Condition: Stable Record reviewed to determine appropriate education?: Yes Instructions: ED Contusion Chest Wall
[2022-05-21] MEDS ORDERED: MORPHINE 2 MG/ML CARPUJECT IVP STA (11:00)
[2022-05-21 11:25] LABS: BASOPHILS # (AUTO) 0.1 10^3/uL (0.0-0.1); BASOPHILS % (AUTO) 0.9 %; EOSINOPHILS # (AUTO) 0.2 10^3/uL (0.0-0.7); EOSINOPHILS % (AUTO) 1.6 %; HCT - HEMATOCRIT 47.4 % (37.0-47.0); HGB - HEMOGLOBIN 15.4 g/dL (12.0-16.0); LYMPHOCYTES % (AUTO) 9.8 %; MEAN CORPUSCULAR HGB CONC 32.5 g/dL (32.0-36.0); MONOCYTES # (AUTO) 0.5 10^3/uL (0.0-1.0); MONOCYTES % (AUTO) 5.3 %; NEUTROPHILS # (AUTO) 8.3 10^3/uL (1.5-6.6); NEUTROPHILS % (AUTO) 82.2 %; PLT - PLATELET COUNT 259 10^3/uL (130-450); RED BLOOD COUNT 5.71 10^6/uL (4.20-5.40); RED CELL DISTRIBUTION WIDTH 13.5 % (12.0-15.0); WHITE BLOOD COUNT 10.1 x10^3/uL (4.8-10.8)
[2022-05-21 11:35] LABS: PT - PROTHROMBIN TIME 11.6 secs (9.9-12.6)
[2022-05-21 11:42] LABS: PARTIAL THROMBOPLASTIN TIME 23.7 secs (24.9-33.3)
--- OUTSIDE RECORDS SUMMARY | 2022-05-21 11:43 | EXTERNAL MEDICAL SUMMARY RPT | Continuity of Care Document ---
:1950 Author Organization [facility] Address [address] [place] [address] Phone Care Team Providers Name Role Phone Carlitos Forrest Unavailable Unavailable Allergies and Intolerances date description facility type (no date) [facility] (unknown) Encounters No information. Functional Status No information. Immunizations No information. Medications date description facility 2022-02-26 00:00 Tiotropium [place] [facility] 2022-02-22 00:00 Albuterol Sulfate [facility] 2022-02-20 00:00 Furosemide [facility] 2022-02-22 00:00 Furosemide [facility] 2022-03-07 00:00 Isosorbide Mononitrate [facility] 2022-02-22 00:00 Tiotropium [place] [facility] 2022-02-22 00:00 Meclizine [facility] 2022-03-11 00:00 Donepel [facility] Problems No information. Procedures No information. Results/Labs test date author facility value unit interpret ation Result panel 1 (unknown) (no (unknown) (unknown) (no value) (units (unk nown) date) unknown) (unknown) (no (unknown) (unknown) [id number] (units (unkn own) date) unknown) (unknown) (no [...] own) date) unknown) (unknown) (no (unknown) (unknown) [place] [address] (unit s (unknown) date) unknown) (unknown) (no (unknown) (unknown) Attending Dr: Nora (units (unknown) date) Lorenza Gardiner.OPaco unknown) (unknown) (no (unknown) (unknown) [place] [facility] [...] (unknown) (unknown) : 1950 (units (unknown) date) Acct:[id number] unknown) (unknown) (no (unknown) (unknown) Dept at [...] (unknown) (unknown) Patient: (units (unkno wn) date) Alejandro Sepulveda MR#: unknown ) M (unknown) (no [...] effort is made unknown) to edit content, supervisor fusing room errors Result panel 2 (unknown) (no (unknown) (unknown) (no value) (units (unk nown) date) unknown) (unknown) (no (unknown) (unknown) [id number] (units (unkn own) date) unknown) (unknown) (no [...] unknown) (unknown) (no (unknown) (unknown) [place], [place] [address] (unit s (unknown) date) unknown) (unknown) (no (unknown) (unknown) Attending DrJohanne Melendez (units (unknown) date) Lorenza BaughOPaco unknown) (unknown) (no (unknown) (unknown) BMI 33.8 [...] (unknown) (unknown) : 1950 (units (unknown) date) Acct:[id number] unknown) (unknown) (no (unknown) (unknown) Dept at [...] (unknown) (unknown) Patient: (units (unkno wn) date) Alejandro Sepulveda MR#: unknown ) M (unknown) (no [...] effort is made unknown) to edit content, supervisor fusing room errors (unknown) (no (unknown) (unknown) spiriva but the (units (unknown) date) pharmacy did not get unknown) the order. she states that she is still (unknown) (no (unknown) (unknown) that the ER gave her (uni ts (unknown) date) a walker for unknown) stability. they were supposd to prescribe her Result panel 3 (unknown) (no (unknown) (unknown) (no value) (units (unk nown) date) unknown) (unknown) (no (unknown) (unknown) - Essential (primary) (un its (unknown) date) hypertension unknown) (unknown) (no (unknown) (unknown) .Route .COMPLEX #30 (unit s (unknown) date) tabs 02/08/22 [Rx unknown) Confirmed 02/22/22] (unknown) (no (unknown) (unknown) [id number] (units (unkn own) date) unknown) (unknown) (no [...] unknown) (unknown) (no (unknown) (unknown) [place] [phone] (unit s (unknown) date) unknown) (unknown) (no [...] (unknown) (unknown) : 1950 (units (unknown) date) Acct:[id number] unknown) (unknown) (no (unknown) (unknown) Dept at [...] Documented By: (units (unknown) date) Lorenza Nora 02/22/22 unknown) 0852 (unknown) (no (unknown) (unknown) [...] (unknown) (unknown) Patient: (units (unkno wn) date) Alejandro Sepulveda MR#: unknown ) M (unknown) (no [...] effort is made unknown) to edit content, supervisor fusing room errors (unknown) (no (unknown) (unknown) spiriva but [...] 01/25/22 [Rx unknown) Confirmed 02/22/22] Result panel 4 (unknown) (no (unknown) (unknown) [...] unknown) Confirmed 02/22/22] (unknown) (no (unknown) (unknown) [id number] (units (unkn own) date) unknown) (unknown) (no [...] (unknown) date) unknown) (unknown) (no (unknown) (unknown) [place] [address] (unit s (unknown) date) unknown) (unknown) (no [...] (unknown) (unknown) : 1950 (units (unknown) date) Acct:[id number] unknown) (unknown) (no (unknown) (unknown) Dept at (units (unkno wn) date) . unknown) (unknown) (no (unknown) (unknown) Disabled Parking (units (unknown) date) Permit ##1 11/28/21 unknown) [Rx Confirmed 02/22/22] (unknown) (no (unknown) (unknown) Documented By: (units (unknown) date) Noar Britt 02/22/22 unknown) 0852 (unknown) (no (unknown) [...] (unknown) (unknown) Patient: (units (unkno wn) date) Alejandro Sepulveda MR#: unknown ) M (unknown) (no [...] PO DAILY unknown) PRN vertigo #30 tabs 01/13/23 [Rx (unknown) (no (unknown) (unknown) minoxidil 2.5 [...] effort is made unknown) to edit content, supervisor fusing room errors (unknown) (no (unknown) (unknown) spiriva but [...] 01/25/22 [Rx unknown) Confirmed 02/22/22] Result panel 5 (unknown) (no (unknown) (unknown) [...] unknown) Confirmed 02/22/22] (unknown) (no (unknown) (unknown) [id number] (units (unkn own) date) unknown) (unknown) (no [...] (unknown) date) unknown) (unknown) (no (unknown) (unknown) [place] [address] (unit s (unknown) date) unknown) (unknown) (no [...] (unknown) (unknown) : 1950 (units (unknown) date) Acct:[id number] unknown) (unknown) (no (unknown) (unknown) Dept at [...] (unknown) (unknown) Patient: (units (unkno wn) date) Alejandro Sepulveda MR#: unknown ) M (unknown) (no [...] effort is made unknown) to edit content, supervisor fusing room errors (unknown) (no (unknown) (unknown) spiriva but [...] 01/25/22 [Rx unknown) Confirmed 02/22/22] Result panel 6 (unknown) (no (unknown) (unknown) (no value) (units (unk nown) date) unknown) (unknown) (no (unknown) (unknown) [id number] (units (unkn own) date) unknown) (unknown) (no (unknown) (unknown) 03/05/22 (units (unkno wn) date) unknown) (unknown) (no (unknown) (unknown) 71-year-old woman (units (unknown) date) with history of unknown) hypertension, hyperlipidemia, CHF, (unknown) (no (unknown) (unknown) Age/Sex: 71 / F Date (uni ts (unknown) date) of Service: unknown) (unknown) (no (unknown) (unknown) Allergies (units (unkn own) date) unknown) (unknown) (no (unknown) (unknown) [place] [phone] (unit s (unknown) date) unknown) (unknown) (no [...] (unknown) (unknown) : 1950 (units (unknown) date) Acct:[id number] unknown) (unknown) (no (unknown) (unknown) Dept at [...] (unknown) (unknown) Patient: (units (unkno wn) date) Alejandro Sepulveda MR#: unknown ) M (unknown) (no [...] effort is made unknown) to edit content, supervisor fusing room errors Result panel 7 (unknown) (no (unknown) (unknown) (no value) (units (unk nown) date) unknown) (unknown) (no (unknown) (unknown) [id number] (units (unkn own) date) unknown) (unknown) (no (unknown) (unknown) 03/11/22 (units (unkno wn) date) unknown) (unknown) (no (unknown) (unknown) 71-year-old woman (units (unknown) date) with history of unknown) hypertension, hyperlipidemia, CHF, (unknown) (no (unknown) (unknown) Age/Sex: 71 / F Date (uni ts (unknown) date) of Service: unknown) (unknown) (no (unknown) (unknown) Allergies (units (unkn own) date) unknown) (unknown) (no (unknown) (unknown) [place] [phone] (unit s (unknown) date) unknown) (unknown) (no [...] (unknown) (unknown) : 1950 (units (unknown) date) Acct:[id number] unknown) (unknown) (no (unknown) (unknown) Dept at (units (unkno wn) date) . unknown) (unknown) (no (unknown) (unknown) Details: (units (unkno wn) date) unknown) (unknown) (no (unknown) (unknown) Documented By: (units (unknown) date) Carlitos ForrestOPaco unknown) 03/11/22 0949 (unknown) (no (unknown) (unknown) [...] (unknown) (unknown) Patient: (units (unkno wn) date) Alejandro Sepulveda MR#: unknown ) M (unknown) (no [...] effort is made unknown) to edit content, supervisor fusing room errors (unknown) (no (unknown) (unknown) watch' that (units (un known) date) automatically tell unknown) Brigid where Alejandro is and sets off an alarm if (unknown) (no (unknown) (unknown) without ID, money, or (un its (unknown) date) a phone. 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: (unknown) (no (unknown) (unknown) [id number] (units (unkn own) date) unknown) (unknown) (no (unknown) (unknown) 03/11/22 (units (unkno wn) date) unknown) (unknown) (no (unknown) (unknown) 71-year-old woman (units (unknown) date) with history of unknown) hypertension, hyperlipidemia, CHF, (unknown) (no (unknown) (unknown) Age/Sex: 71 / F Date (uni ts (unknown) date) of Service: unknown) (unknown) (no (unknown) (unknown) Allergies (units (unkn own) date) unknown) (unknown) (no (unknown) (unknown) [place] [address] (unit s (unknown) date) unknown) (unknown) (no [...] (unknown) (unknown) : 1950 (units (unknown) date) Acct:[id number] unknown) (unknown) (no (unknown) (unknown) Dept at [...] (unknown) (unknown) Patient: (units (unkno wn) date) Alejandro Sepulveda MR#: unknown ) M (unknown) (no [...] date) Stephen, who has unknown) become her range conservationist. This neighbor moved the (unknown) (no (unknown) (unknown) occurred due to the (unit s (unknown) date) inherent limitations unknown) of voice recognition software. Please (unknown) (no (unknown) (unknown) patient into a small (uni ts (unknown) date) house near her own unknown) house to look after her. Brigid has set (unknown) (no (unknown) (unknown) presents with her (units (unknown) date) neighbor Brigid Maanson unknown ) who is her caregiver who has concerns (unknown) (no (unknown) (unknown) read the note (units ( unknown) date) carefully and unknown) recognize, using context, where these substitutions (unknown) (no (unknown) (unknown) she goes more than (units (unknown) date) 700 feet from her unknown) house. (unknown) (no (unknown) (unknown) software. Although (units (unknown) date) every effort is made unknown) to edit content, supervisor fusing room errors (unknown) (no (unknown) (unknown) speech normal [...] known) date) automatically tell unknown) Brigid where Alejandro is and sets off an alarm if (unknown) (no (unknown) (unknown) without ID, money, or (un its (unknown) date) a phone. 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 unknown) (unknown) (no (unknown) (unknown) Details: (units (unkno wn) date) unknown) (unknown) (no (unknown) (unknown) Documented By: (units (unknown) date) Carlitos ForrestOPaco unknown) 03/11/22 0949 (unknown) (no (unknown) (unknown) [...] (unknown) (unknown) Patient: (units (unkno wn) date) Alejandro Sepulveda MR#: unknown ) M (unknown) (no [...] date) Stephen, who has unknown) become her range conservationist. This neighbor moved the (unknown) (no (unknown) [...] effort is made unknown) to edit content, supervisor fusing room errors (unknown) (no (unknown) (unknown) speech normal [...] known) date) automatically tell unknown) Brigid where Alejandro is and sets off an alarm if (unknown) (no (unknown) (unknown) without ID, money, or (un its (unknown) date) a phone. Brigid has set unknown ) up a system with a 'smart care Result panel 10 (unknown) (no (unknown) (unknown) (no value) (units (unk nown) date) unknown) (unknown) (no (unknown) (unknown) [phone] (units (unkn own) date) unknown) (unknown) (no (unknown) (unknown) 03/12/22 (units (unkno wn) date) unknown) (unknown) (no (unknown) (unknown) 71-year-old woman (units (unknown) date) with history of unknown) hypertension, hyperlipidemia, CHF, (unknown) (no (unknown) (unknown) Age/Sex: 71 / F Date (uni ts (unknown) date) of Service: unknown) (unknown) (no (unknown) (unknown) Allergies (units (unkn own) date) unknown) (unknown) (no (unknown) (unknown) [place] [address] (unit s (unknown) date) unknown) (unknown) (no [...] (unknown) (unknown) : 1950 (units (unknown) date) Acct:[id number] unknown) (unknown) (no (unknown) (unknown) Dept at (units (unkno wn) date) . unknown) (unknown) (no (unknown) (unknown) Details: (units (unkno wn) date) unknown) (unknown) (no (unknown) (unknown) Documented By: (units (unknown) date) Carlitos oFrrest D.O. unknown) 03/25/22 0948 (unknown) (no (unknown) (unknown) Draft (units (unkno [...] (unknown) (unknown) Patient: (units (unkno wn) date) Alejandro Sepulveda MR#: unknown ) M (unknown) (no [...] unknown) (unknown) (no (unknown) (unknown) Visit Reasons: VID (units (unknown) date) Medication review unknown) (unknown) (no (unknown) (unknown) about her taking [...] effort is made unknown) to edit content, supervisor fusing room errors (unknown) (no (unknown) (unknown) watch' that (units (un known) date) automatically tell unknown) Brigid where Alejandro is and sets off an alarm if (unknown) (no (unknown) (unknown) without ID, money, or (un its (unknown) date) a phone. Brigid has set unknown ) up a system with a 'smart care Result panel 11 (unknown) (no (unknown) (unknown) (no value) (units (unk nown) date) unknown) (unknown) (no (unknown) (unknown) [id number] (units (unkn own) date) unknown) (unknown) (no (unknown) (unknown) 03/12/22 (units (unkno wn) date) unknown) (unknown) (no (unknown) (unknown) 71-year-old woman (units (unknown) date) with history of unknown) hypertension, hyperlipidemia, CHF, (unknown) (no (unknown) (unknown) Add'l Complaint: (units (unknown) date) unknown) (unknown) (no (unknown) (unknown) Age/Sex: 71 / F Date (uni ts (unknown) date) of Service: unknown) (unknown) (no (unknown) (unknown) Allergies (units (unkn own) date) unknown) (unknown) (no (unknown) (unknown) [place] [address] (unit s (unknown) date) unknown) (unknown) (no [...] (unknown) (unknown) Chief Complaint: (units (unknown) date) Medication review unknown) (unknown) (no (unknown) (unknown) Chronic kidney (units (unknown) date) disease (CKD) stage unknown) G3b/A1, moderately decreased glomerular (unknown) (no (unknown) (unknown) : 1950 (units (unknown) date) Acct:[id number] unknown) (unknown) (no (unknown) (unknown) Dept at (units (unkno wn) date) . unknown) (unknown) (no (unknown) (unknown) Details: (units (unkno wn) date) unknown) (unknown) (no (unknown) (unknown) Documented By: (units (unknown) date) Carlitos Forrest D.O. unknown) 03/25/22 0948 (unknown) (no (unknown) (unknown) Draft (units (unkno [...] mutation unknown) (12/30/14) (unknown) (no (unknown) (unknown) Hospital follow-up (units (unknown) date) unknown) (unknown) (no (unknown) (unknown) Hyperhomocysteinemia (uni ts [...] (unknown) (unknown) Patient: (units (unkno wn) date) Alejandro Sepulveda MR#: unknown ) M (unknown) (no [...] unknown) (unknown) (no (unknown) (unknown) Visit Reasons: VID (units (unknown) date) Medication review unknown) (unknown) (no (unknown) (unknown) alcohol [...] 30 mg/g unknown) (unknown) (no (unknown) (unknown) deficit resolved but (unit s (unknown) date) she is very unknown) deconditioned and the hospital ordered physical (unknown) (no (unknown) (unknown) due to cognitive [...] software. Please (unknown) (no (unknown) (unknown) [facility] A left-sided (unknown) (no (unknown) (unknown) presents with her (units (unknown) date) neighbor Brigid Shaw unknown ) for a telehealth visit may do follow-up (unknown) (no (unknown) (unknown) read the note (units ( unknown) date) carefully and unknown) recognize, using context, where these substitutions (unknown) (no (unknown) (unknown) software. Although (units (unknown) date) every effort is made unknown) to edit content, supervisor fusing room errors (unknown) (no (unknown) (unknown) therapy, occupational (un its (unknown) date) therapy, and other unknown) help at home. Result panel 12 (unknown) (no (unknown) (unknown) (no value) (units (unk nown) date) unknown) (unknown) (no (unknown) (unknown) [phone] (units (unkn own) date) unknown) (unknown) (no (unknown) (unknown) 03/12/22 (units (unkno wn) date) unknown) (unknown) (no (unknown) (unknown) 71-year-old woman (units (unknown) date) with history of unknown) hypertension, hyperlipidemia, CHF, (unknown) (no (unknown) (unknown) Add'l Complaint: (units (unknown) date) unknown) (unknown) (no (unknown) (unknown) Age/Sex: 71 / F Date (uni ts (unknown) date) of Service: unknown) (unknown) (no (unknown) (unknown) Allergies (units (unkn own) date) unknown) (unknown) (no (unknown) (unknown) [place] [id number] (unit s (unknown) date) unknown) (unknown) (no [...] accident) unknown) (2006) (unknown) (no (unknown) (unknown) Cancelled (units (unkn own) date) unknown) (unknown) (no (unknown) (unknown) Chief Complaint (units (unknown) date) unknown) (unknown) (no (unknown) (unknown) Chief Complaint: (units (unknown) date) Medication review unknown) (unknown) (no (unknown) (unknown) Chronic kidney (units (unknown) date) disease (CKD) stage unknown) G3b/A1, moderately decreased glomerular (unknown) (no (unknown) (unknown) : 1950 (units (unknown) date) Acct:[id number] unknown) (unknown) (no (unknown) (unknown) Dept at (units (unkno wn) date) . unknown) (unknown) (no (unknown) (unknown) Details: (units (unkno wn) date) unknown) (unknown) (no (unknown) (unknown) Documented By: (units (unknown) date) Carlitos ForrestOPaco unknown) 03/25/22 0948 (unknown) (no (unknown) (unknown) Elevated fasting (units [...] mutation unknown) (12/30/14) (unknown) (no (unknown) (unknown) Hospital follow-up (units (unknown) date) unknown) (unknown) (no (unknown) (unknown) Hyperhomocysteinemia (uni ts [...] (unknown) (unknown) Patient: (units (unkno wn) date) Alejandro Sepulveda MR#: unknown ) M (unknown) (no [...] unknown) (unknown) (no (unknown) (unknown) Visit Reasons: VID (units (unknown) date) Medication review unknown) (unknown) (no (unknown) (unknown) alcohol [...] 30 mg/g unknown) (unknown) (no (unknown) (unknown) deficit resolved but (unit s (unknown) date) she is very unknown) deconditioned and the hospital ordered physical (unknown) (no (unknown) (unknown) due to cognitive [...] software. Please (unknown) (no (unknown) (unknown) on a [facility] ([facility]) [facility] A left-sided (unknown) (no (unknown) (unknown) presents with her (units (unknown) date) neighbor Brigid Shaw unknown ) for a telehealth visit may do follow-up (unknown) (no (unknown) (unknown) read the note (units ( unknown) date) carefully and unknown) recognize, using context, where these substitutions (unknown) (no (unknown) (unknown) software. Although (units (unknown) date) every effort is made unknown) to edit content, supervisor fusing room errors (unknown) (no (unknown) (unknown) therapy, occupational (un its (unknown) date) therapy, and other unknown) help at home. Social History date description facility 2022-02-22 00:00 Current some day smoker [facility] 2022-03-11 00:00 Current some day smoker [facility] Vital Signs date measurement value units 2022-02-22 00:00 BMI 33.8 kg/m2 2022-02-22 00:00 BP_diastolic 80 mmHg 2022-02-22 00:00 BP_systolic 132 mmHg 2022-02-22 00:00 heart_rate 84 /min 2022-02-22 00:00 height_metric 170.18 cm 2022-02-22 00:00 height_standard 67 in 2022-02-22 00:00 o2_saturation 98 % 2022-02-22 00:00 temperature_metric 36.61 C 2022-02-22 00:00 temperature_standard 97.9 F 2022-02-22 00:00 weight_metric 97.97 kg 2022-02-22 00:00 weight_standard 215.99 lb
[2022-05-21 11:47] LABS: ALBUMIN 4.3 g/dL (3.2-5.5); ALBUMIN/GLOBULIN RATIO 1.1 (1.0-2.2); BILIRUBIN,TOTAL 1.2 mg/dL (0.2-1.0); CALCIUM 9.1 mg/dL (8.5-10.3); CREATININE 1.7 mg/dL (0.4-1.0); MAGNESIUM 2.3 mg/dL (1.7-2.8); POTASSIUM 3.8 mmol/L (3.5-5.0); TOTAL PROTEIN 8.1 g/dL (6.7-8.2)
[2022-05-21] MEDS ORDERED: SODIUM CHLORIDE 0.9% 1,000 ML IV STA (12:09)
--- NOTE | 2022-05-21 13:02 | CT Report ---
PROCEDURE: HEAD WO INDICATIONS: fall, on DOAC TECHNIQUE: Noncontrast 4.5 mm thick angled axial sections acquired from the foramen magnum to the vertex. For r adiation dose reduction, the following was used: automated exposure control, adjustment of mA and/or kV according to patient size. COMPARISON: 03/15/2022 FINDINGS: Image quality: Good CSF spaces: Basal cisterns are patent. Lateral ventricles are symmetric. Volume: Vascular calcifications. Periventricular white matter disease is commonly seen with chronic m icroangiopathy. Volume loss is present. These findings are moderate. Brain: No acute hemorrhage. Slightly asymmetric areas of hypoattenuation, along the frontal horns and occipital lobes, overall similar to prior, likely prior infarct or other injury. Craniofacial structures: No displaced fracture. Sinuses are clear. Orbits are intact. IMPRESSION: No acute changes compared to prior imaging. No acute intracranial bleed. Reviewed by: Ron Cruz MD on 05/21/2022 1:00 PM PDT Approved by: Ron Cruz MD on 05/21/2022 1:00 PM PDT Station ID: [id number]
--- NOTE | 2022-05-21 13:03 | CT Report ---
PROCEDURE: CERVICAL SPINE WO INDICATIONS: fall, head/neck pain TECHNIQUE: Noncontrast 3 mm thick sections acquired from the skull base to the T4 level. Sagittal and coronal r eformats were then constructed. For radiation dose reduction, the following was used: automated exp osure control, adjustment of mA and/or kV according to patient size. COMPARISON: None. FINDINGS: Image quality: Good Bones: Moderate degenerative changes with more focal disc space height loss at C5-C6. Soft tissues: No apical pneumothorax. No pathologic prevertebral soft tissue swelling. IMPRESSION: Moderate degenerative changes. No acute fracture/subluxation of the cervical spine. If there is high concern for further derangement, consider MRI evaluation. Reviewed by: Ron Cruz MD on 05/21/2022 1:02 PM PDT Approved by: Ron Cruz MD on 05/21/2022 1:02 PM PDT Station ID: [id number]
[2022-05-21] MEDS ORDERED: iohexoL-300 100 ML VIAL ONE (13:05)
--- NOTE | 2022-05-21 13:19 | CT Report ---
PROCEDURE: CHEST W INDICATIONS: fall with anterior chest/abd pain CONTRAST: 100ml Omnipaque 300 TECHNIQUE: After the administration of intravenous contrast, 1 mm axial images were acquired from the pulmonary apices through the posterior costophrenic angles. Axial 5 mm soft tissue kernel reconstructions were performed as well as 8 mm axial MIP and coronal and sagittal 5 mm reformations. For radiation dose reduction, the following was used: automated exposure control, adjustment of mA and/or kV according to patient size. COMPARISON: None. FINDINGS: Image quality: Good Lungs and pleura:Basal scarring/atelectasis. Calcified pleural plaques and thickening, particularly a t the right lung base. No hemothorax or pneumothorax. No definite pulmonary laceration. Micronodules are present, for example (8/108) on the right. Mediastinum, heart, and esophagus: Mild to moderate hiatal hernia. Coronary calcifications. Heart siz e is at the upper limit of normal. No thoracic aortic aneurysm. No mediastinal hematoma. No pathologi c adenopathy by size criteria. Chest wall and thyroid: No chest wall hematoma. 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 No acute displaced fracture. Sternal deformity w ithout definite acute fracture line. IMPRESSION: Sternal deformity is present without definite acute fracture line, correlate with point tenderness. N o definite acute, displaced injury identified. No pneumothorax, hemothorax, or mediastinal hematoma. The above described lung findings could be followed with chest CT in one year or sooner to ensure sta bility. Reviewed by: Ron Cruz MD on 05/21/2022 1:18 PM PDT Approved by: Ron Cruz MD on 05/21/2022 1:18 PM PDT Station ID: [id number]
--- NOTE | 2022-05-21 13:25 | CT Report ---
PROCEDURE: ABDOMEN/PELVIS W INDICATIONS: fall, DOAC, pain left chest/abd CONTRAST: 100ml Omnipaque 300 TECHNIQUE: After the administration of IV contrast, 5 mm thick sections acquired from the diaphragms to the symp hysis. 5 mm thick coronal and sagittal reformats were acquired. For radiation dose reduction, the f ollowing was used: automated exposure control, adjustment of mA and/or kV according to patient size. COMPARISON: None FINDINGS: Image quality: Good Lower chest: Separately dictated Solid organs: Focal fat adjacent to falciform ligament. No liver laceration. Cholelithiasis. No patho logic dilation of the biliary tree or pancreatic duct. No splenomegaly. No splenic laceration. A 2.2 cm left adrenal nodule is present. No hydronephrosis. Bilateral cortical thinning of the kidneys. Delmy pected vascular calcifications around the left renal hilum. No hydronephrosis. Right lower pole nonob structing punctate renal calculus. Vessels and lymph nodes: Atherosclerotic calcifications without abdominal aortic aneurysm. An IVC coty ter is in place. No pathologic adenopathy by size criteria. Bowel and peritoneum: No hemoperitoneum. No pneumoperitoneum. Moderate hiatal hernia. No small bowel obstruction. No pathologic ascites. Colonic diverticular disease, with wall thickening throughout the sigmoid colon. A metallic clip is seen in the left paracolic gutter. Body wall: Unremarkable Pelvis: Bladder is unremarkable. Uterus is absent. Bones: No acute pelvic ring disruption. There are degenerative changes. Leftward spinal curvature. IMPRESSION: No acute traumatic abnormality identified. Of note, please consider correlation with age-appropriate colonoscopy results regarding the sigmoid c olon wall thickening and suspected chronic diverticular disease. Left adrenal nodule is most commonly an adenoma, incidentally noted, consider confirmation with adren al protocol CT or MRI. Other findings as above. Reviewed by: Ron Cruz MD on 05/21/2022 1:24 PM PDT Approved by: Ron Cruz MD on 05/21/2022 1:24 PM PDT Station ID: [id number]
[2022-05-21] MEDS ORDERED: iohexoL-300 100 ML VIAL IVP ONE (13:52)
[2022-05-21] MEDS ORDERED: ONDANSETRON 4 MG/2 ML VIAL IVP PRN (14:56)
[2022-05-21] MEDS ORDERED: MORPHINE 2 MG/ML CARPUJECT IVP PRN (14:56)
[2022-05-21] MEDS ORDERED: ONDANSETRON ODT 4 MG TABLET TL PRN (14:56)
[2022-05-21] MEDS ORDERED: SODIUM CHLORIDE FLUSH 0.9% 10 ML SYRINGE IVP PRN (14:56)
[2022-05-21] MEDS: DEXTROSE 5%-0.9% NACL 1,000 ML IV SCH (15:02)
[2022-05-21 15:09] LABS: B. PARAPERTUSSIS- RESP PCR PAN NOT DETECTED; B. PERTUSSIS- RESP PCR PANEL NOT DETECTED; C. PNEUMONIAE- RESP PCR PANEL NOT DETECTED; CORONAVIRUS 229E-RESP PCR NOT DETECTED; CORONAVIRUS HKU1-RESP PCR NOT DETECTED; CORONAVIRUS NL63-RESP PCR NOT DETECTED; CORONAVIRUS OC43-RESP PCR NOT DETECTED; HUMAN METAPNEUMOVIRUS NOT DETECTED; INFLUENZA A- RESP PCR PANEL NOT DETECTED; INFLUENZA B - RESP PCR PANEL NOT DETECTED; M. PNEUMONIAE- RESP PCR PANEL NOT DETECTED; PARAINFLUENZA VIRUS 1 NOT DETECTED; PARAINFLUENZA VIRUS 2 NOT DETECTED; PARAINFLUENZA VIRUS 3 NOT DETECTED; PARAINFLUENZA VIRUS 4 NOT DETECTED; RHINOVIRUS/ENTEROVIRUS NOT DETECTED; RSV- RESP PCR PANEL NOT DETECTED; SARS-CoV-2 -RESP PCR PANEL NOT DETECTED
[2022-05-21] MEDS: DEXTROSE 5%-0.9% NACL 1,000 ML IV STA (15:42)
[2022-05-21] MEDS: SODIUM CHLORIDE FLUSH 0.9% 10 ML SYRINGE IVP SCH (17:26)
--- NOTE | 2022-05-21 18:14 | HISTORY & PHYSICAL EXAMINATION ---
Chief Complaint - Chief Complaint Chief Complaint: falls w hypoglycemia History of Present Illness - Admitted From Admitted From:: home via EMS - History Obtained From Records Reviewed: [facility] History obtained from: Dr. Kuhn Exam Limitations: her vagueness and hx - History of Present Illness HPI Comment/Other: This is a 71-year-old female who has a history of stroke due to hypercoagulable state, a craniotomy, and IVC filter and a subsequent mild left-sided deficit that presents for a second admission. Her first admission was in March where she had worsening left-sided weakness. She has a caregiver, and she does take her medications on a regular basis. She has a timed dispenser machine and there are no missed doses of diuretic or Xarelto. In the emergency room she had a dense hemiplegia and dysarthria present. By the next day all of this deficit had resolved. She was gesticulating, laughing spontaneously. Her CT angiogram showed her to have a focal 80% stenosis in the right M1 segment which may have caused her to have temporary left-sided deficit. MRI of the brain and CT of the brain confirmed previous bibasilar strokes. Physical therapy and Occupational Therapy evaluated her and found her to have cognitive deficits, ataxia, weakness and at high risk for falls. Because she lives alone I felt she was probably a candidate for long-term placement. She lives in her own home and her power of insurance attorney and friend live next-door. Her current caregiver/POA is experiencing caregiver burnout. They are thinking of starting the process for placing her in a longterm, assisted living facility or half-way. She now returns with increasing falls over the last 4 to 5 days. Less appetite. EMS was called because she was found down. They report her blood sugar is 30 and she was given IV dextrose with improvement in mentation. Sugar went to 52. The patient does not take any glucose lowering drugs. In the emergency room lab draw showed a glucose of 112. Unfortunately she had an elevated CK from all of her falls at 3034. Creatinine was minimally elevated at 1.7 whereas at discha rge she was 1.5 in March. CBC was stable. Urinalysis had squamous cells in it. She was COVID-negative. Head CT had no acute changes and compared to prior imaging. Cervical spine CT had moderate degenerative changes. No acute fracture or subluxation. Chest CT was done because the patient reported, as she fell, hitting her chest on the sink in the bathroom. She has calcified pleural plaques and thickening at the right lung base. But no hemothorax or pneumothorax. Moderate hiatal hernia. Chest wall is without hematoma. She has a sternal deformity present without definitive acute fracture line. No definitive acute, displaced fracture identified. Abdomen pelvis CT has no acute traumatic abnormality. When the patient returned from the CT scanner, recheck at [id number] glucose was in the 50s again. She was given a snack, and repeat glucose improved. As such I am being asked to evaluate the patient for hypoglycemia. History - Past Medical History Cardiovascular: reports: Congestive heart failure, Deep vein thrombosis, Pulmonary embolism, Other Respiratory: reports: None Neuro: reports: Dementia, CVA Endocrine/Autoimmune: reports: Type 2 diabetes GI: reports: None SURVEILLANCE MANAGER: reports: None : reports: None HEENT: reports: None Psych: reports: None Musculoskeletal: reports: None Derm: reports: None - Past Surgical History General: reports: Other Ortho: reports: Arthroscopic surgery /SURVEILLANCE MANAGER: reports: Hysterectomy Neuro: reports: Craniotomy - POLST Patient has POLST: No Meds/Allgy - Home Medications Home Medications: Ambulatory Orders Medication Instructions Recorded Confirmed Albuterol Sulf [Ventolin Hfa 1 - 2 puffs INH Q4HR PRN 03/14/22 03/14/22 Inhaler] Amitriptyline [Elavil] 25 mg PO QPM 03/14/22 03/14/22 Donepezil HCl [Aricept] 10 mg PO DAILY 03/14/22 03/14/22 Furosemide [Lasix] 20 mg PO BID 03/14/22 03/14/22 Isosorbide Mononitrate [Isosorbide 60 mg PO DAILY 03/14/22 03/14/22 Mononitrate ER] Potassium Chloride 20 meq PO DAILY 03/14/22 03/14/22 Rivaroxaban [Xarelto] 20 mg PO DAILY 03/14/22 03/14/22 Tiotropium [place] [Spiriva See Rx Instructions .ROUTE .COMPLEX 03/14/22 03/14/22 Respimat] minoxidiL [Minoxidil] 2.5 mg PO BID 03/14/22 03/14/22 Aspirin EC [Ecotrin] 81 mg PO DAILY #180 tablet 03/16/22 Atorvastatin [Lipitor] 80 mg PO QPM #30 tab 03/16/22 - Allergies Allergies/Adverse Reactions: Allergies Allergy/AdvReac Type Severity Reaction Status Date / Time aspirin Allergy Unknown Verified 05/21/22 10:52 cortisone Allergy Hives Verified 05/21/22 10:52 lisinopril Allergy Unknown Verified 05/21/22 10:52 Review of Systems - Constitutional Constitutional: reports: Weakness, Poor appetite. denies: Fatigue, Fever, Chills, Malaise - Eyes Eyes: denies: Pain, Irritation, Amaurosis - Ears, Nose & Throat Ears, Nose & Throat: reports: Hearing loss, Vertigo. denies: Ear pain, Hearing aids, Sore throat - Cardiovascular Cariovascular: denies: Irregular heart rate, Palpitations, Chest pain, Edema, Exertional dyspnea, Decr. exercise tolerance - Respiratory Respiratory: denies: Cough, Sputum production, Wheezing, Snoring - Gastrointestinal Gastrointestinal: denies: Abdominal pain, Abdominal distention, Diarrhea, Black stools, Bloody stools - Genitourinary Genitourinary: denies: Dysuria, Frequency, Urgency - Musculoskeletal Musculoskeletal: reports: Muscle aches, Stiffness. denies: Muscle pain - Integumentary Integumentary: denies: Rash, Pruritis - Neurological Neurological: reports: Focal weakness, Memory problems, Pre-existing deficit. denies: General weakness - Psychiatric Psychiatric: denies: Depression, Anxiety, Suicidal - Endocrine Endocrine: denies: Polyuria, Polydypsia - Hematologic/Lymphatic Hematologic/Lymphatic: denies: Anemia, Bruising, Petechiae Prior Level of Functionality: While she is independent with regards to feeding herself and dressing herself, she needs quite a bit of help. Her friend, power of insurance attorney, and caregiver lives next door. Medicines are dispensed by a [facility]. Transporting the patient to and from doctor's appointments, making sure she is eating are all done by her caregiver. She is supposed to be using a walker at home. Exam - Vital Signs Reviewed Vital Signs: Yes Vital Signs: Vital Signs x48h Temp Pulse Pulse Resp BP BP Pulse Ox 05/21/22 16:38 36.7 C 114 H 22 145/100 H 100 05/21/22 15:10 36.5 C 103 H 16 100 05/21/22 13:30 17 05/21/22 13:11 94 16 172/82 H 05/21/22 12:37 103 H 18 97 05/21/22 11:00 81 15 100 05/21/22 10:53 36.9 C 94 18 187/92 H - Physical Exam General Appearance: positive: No acute distress, Alert, Other (Magi elderly female, sitting up in bed, and is gesticulating, alert, vivacious in speech pattern. Telling stories and joking) Eyes Bilateral: positive: PERRL, EOMI ENT: positive: No signs of dehydration, Other (Edentulous) Neck: positive: No JVD. negative: Stiff neck Respiratory: positive: No respiratory distress. negative: Wheezes, Rales, Rhonchi Cardiovascular: positive: Regular rate & rhythm, Systolic murmur Peripheral Pulses: positive: 1+ Abdomen: positive: Non-tender, No organomegaly, Nml bowel sounds, No distention Skin: positive: Warm, Dry, Pallor, Other (Skin is well taken care of. There is no venous stasis changes, no hemosiderin deposits) Extremities: positive: Other (Large legs and arms from a large boned woman) Neurologic/Psychiatric: positive: Oriented x3. negative: CN's nml (2-12) (Very slight left facial droop), Motor nml (She slumps over to the left for poor truncal stability, can lift up her left arm, but she cannot lift up her left leg. She can move her left leg she just cannot lift) Conclusion/Plan - Problem List (1) Hypoglycemia Conclusion/Plan: There is no reason for this patient to have such a low glucose. She is not malnourished, not starving. She does not take any medications that would do this to her. I will do work-up for possible insulinoma but this is highly unlikely. Here, with food, her glucose will bump up to normal. I will speak to her caregiver if her food intake is being witnessed. check glucose q4h for 24 hours. (2) Chest wall contusion Qualifiers: Encounter type: initial encounter (3) History of recent fall Conclusion/Plan: Patient has history of multiple falls. She has done this in the past and continues to do so in spite of being on anticoagulation. She does have elevation of her CK because of this but I do not feel she has rhabdomyolysis. Plan: Low rate of IV fluids for hydration, recheck CK daily (4) History of stroke with residual deficit Conclusion/Plan: Slight left body weakness, cognitive deficits. Also appears to have poor insight into health, with frequent falls due to her ataxia. Plan: Work with PT and OT again See if social work can ferret out where the plans are with regards to permanent placement for this patient (5) Hypercoagulable state Conclusion/Plan: She carries a previous diagnosis of a possible protein C abnormality? She has an IVC and a filter. But legs and the rest of her body did not indicate a physical exam of someone who has chronic DVTs. With her falls, she is at risk of really injuring herself while on Xarelto. I will see if I can find the primary care records that go all the way back to the beginning of this diagnosis. - Lab Results Lab results reviewed: Yes Fish Bones: 05/21/22 11:17 05/21/22 11:17 - Diagnostic Imaging Results Diagnostic Imaging Results: positive: Final report reviewed Core Measures - Anticipated LOS I expect patient to be DC'd or transferred within 96 hours.: Yes - DVT/VTE - Prophylaxis VTE/DVT Prophylaxis med ordered at admit?: Yes
[2022-05-21] MEDS: ISOSORBIDE MONONITRATE ER 30 MG TABLET PO SCH (18:42)
[2022-05-21] MEDS: METOPROLOL TARTRATE 25 MG TABLET PO SCH (20:13)
[2022-05-22] MEDS: DEXTROSE 5%-0.9% NACL 1,000 ML IV STA (00:37)
[2022-05-22] MEDS: DEXTROSE 5%-0.9% NACL 1,000 ML IV SCH ×3 (01:10→20:30)
[2022-05-22] MEDS: SODIUM CHLORIDE FLUSH 0.9% 10 ML SYRINGE IVP SCH ×3 (02:55→16:53)
[2022-05-22] MEDS: ZINC OXIDE 20% OINT 30 GM TUBE TOP PRN (04:25)
[2022-05-22] MEDS: ACETAMINOPHEN 325 MG TABLET PO PRN ×2 (04:30→20:44)
[2022-05-22 08:16] LABS: BASOPHILS # (AUTO) 0.1 10^3/uL (0.0-0.1); BASOPHILS % (AUTO) 0.8 %; EOSINOPHILS # (AUTO) 0.3 10^3/uL (0.0-0.7); EOSINOPHILS % (AUTO) 4.4 %; HCT - HEMATOCRIT 40.2 % (37.0-47.0); HGB - HEMOGLOBIN 12.9 g/dL (12.0-16.0); LYMPHOCYTES # (AUTO) 1.2 10^3/uL (1.5-3.5); LYMPHOCYTES % (AUTO) 17.8 %; MEAN CORPUSCULAR HGB CONC 32.1 g/dL (32.0-36.0); MEAN CORPUSCULAR VOLUME 84.3 fL (81.0-99.0); MEAN PLATELET VOLUME 10.2 fL (7.9-10.8); MONOCYTES # (AUTO) 0.4 10^3/uL (0.0-1.0); MONOCYTES % (AUTO) 5.3 %; NEUTROPHILS # (AUTO) 4.7 10^3/uL (1.5-6.6); NEUTROPHILS % (AUTO) 71.4 %; PLT - PLATELET COUNT 225 10^3/uL (130-450); RED BLOOD COUNT 4.77 10^6/uL (4.20-5.40); RED CELL DISTRIBUTION WIDTH 13.8 % (12.0-15.0); WHITE BLOOD COUNT 6.6 x10^3/uL (4.8-10.8)
[2022-05-22 08:26] LABS: CALCIUM 8.1 mg/dL (8.5-10.3); CREATININE 1.5 mg/dL (0.4-1.0); POTASSIUM 3.4 mmol/L (3.5-5.0)
[2022-05-22] MEDS: METOPROLOL TARTRATE 25 MG TABLET PO SCH ×2 (08:50→21:00)
[2022-05-22] MEDS: ISOSORBIDE MONONITRATE ER 30 MG TABLET PO SCH (08:50)
[2022-05-22] MEDS: ENOXAPARIN 40 MG/0.4 ML SYRINGE SUBQ SCH (08:51)
--- NOTE | 2022-05-22 11:12 | PHARMACY PROGRESS NOTE ---
- Best Possible Medication History Admit Date and Time: 05/21/22 1456 Processed by: Pharmacy Medication History completed: Yes Patient Interview: Completed Secondary Source(s): Caregiver, Pharmacy records As the person ultimately responsible for medication therapy, providers are able to order a medication from an existing home medication list in [facility] via the "Reconcile Routine" prior to Confirmation of that medication by residential support worker. Such practice is discouraged except when the physician, in their clinical judgment, deems that a medical need exists for a medication without regard to previous use.
[2022-05-22] MEDS: POTASSIUM CHLORIDE 20 MEQ/15 ML UDC PO SCH (14:48)
[2022-05-22] MEDS: polyethylene glycoL 3350 17 GM PACKET PO SCH (16:54)
--- NOTE | 2022-05-22 20:19 | PROVIDER PROGRESS NOTE ---
Subjective - Prog Note Date Prog Note Date: 05/22/22 Prog Note Time: 20:17 - Subjective Subjective: Sleepy today. Not nearly the chatterbox she was yesterday. But she is appropriate. Complains of sternal pain. You can feel the edge where her sternum changes from what I think is the sternal contusion. But CT confirms that there is no sternal fracture Current Medications - Current Medications Current Medications: Active Medications Acetaminophen (Acetaminophen 325 Mg Tablet) 650 mg PO Q4HR PRN PRN Reason: Pain 1 to 4, or Fever Last Admin: 05/22/22 04:30 Dose: 650 mg Enoxaparin Sodium (Enoxaparin 40 Mg/0.4 Ml Syringe) 40 mg SUBQ DAILY [facility] Last Admin: 05/22/22 08:51 Dose: 40 mg Dextrose/Sodium Chloride (D5ns) 1,000 mls @ 100 mls/hr IV .Q10H [facility] Last Admin: 05/22/22 10:24 Dose: 100 mls/hr Isosorbide Mononitrate (Isosorbide Mononitrate Er 30 Mg Tablet) 30 mg PO DAILY [facility] Last Admin: 05/22/22 08:50 Dose: 30 mg Metoprolol Tartrate (Metoprolol Tartrate 25 Mg Tablet) 25 mg PO BID [facility] Last Admin: 05/22/22 08:50 Dose: 25 mg Morphine Sulfate (Morphine 2 Mg/Ml Carpuject) 2 mg IVP Q2HR PRN PRN Reason: Pain 8 to 10 Multi-Ingredient Ointment (Zinc Oxide 20% Oint 30 Gm Tube) 1 applic TOP PRN PRN PRN Reason: Skin Care Last Admin: 05/22/22 04:25 Dose: 1 applic Ondansetron HCl (Ondansetron Odt 4 Mg Tablet) 4 mg TL Q6HR PRN PRN Reason: Nausea / Vomiting Ondansetron HCl (Ondansetron 4 Mg/2 Ml Vial) 4 mg IVP Q6HR PRN PRN Reason: Nausea / Vomiting Polyethylene Glycol (Polyethylene Glycol 3350 17 Gm Packet) 17 gm PO DAILY [facility] Last Admin: 05/22/22 16:54 Dose: 17 gm Potassium Chloride (Potassium Chloride 20 Meq/15 Ml Udc) 20 meq PO DAILYWM [facility] Last Admin: 05/22/22 14:48 Dose: 20 meq Sodium Chloride (Sodium Chloride Flush 0.9% 10 Ml Syringe) 10 ml IVP PRN PRN PRN Reason: NEEDED PER PROVIDER ORDERS Sodium Chloride (Sodium Chloride Flush 0.9% 10 Ml Syringe) 10 ml IVP 0100,0900,1700 [facility] Last Admin: 05/22/22 16:53 Dose: 10 ml Albuterol Sulf [Ventolin Hfa Inhaler] 1 - 2 puffs INH Q4HR PRN 03/14/22 Amitriptyline [Elavil] 25 mg PO QPM 03/14/22 Donepezil HCl [Aricept] 10 mg PO DAILY 03/14/22 Isosorbide Mononitrate [Isosorbide Mononitrate ER] 60 mg PO DAILY 03/14/22 Potassium Chloride 20 meq PO DAILY 03/14/22 Rivaroxaban [Xarelto] 20 mg PO DAILY 03/14/22 Tiotropium [place] [Spiriva Respimat] See Rx Instructions .ROUTE .COMPLEX 03/14/22 minoxidiL [Minoxidil] 2.5 mg PO BID 03/14/22 Atorvastatin [Lipitor] 40 mg PO QPM 05/22/22 Furosemide [Lasix] 1 tab PO BID 05/22/22 Meclizine HCl [Dramamine] 1 tab PO DAILY 05/22/22 Objective - Vital Signs/Intake & Output Reviewed Vital Signs: Yes Vital Signs: Vital Signs x48h Temp Pulse Pulse Resp BP BP Pulse Ox 05/22/22 15:34 36.5 C 76 16 157/74 H 100 05/22/22 13:50 78 143/61 H Intake & Output: Intake & Output 05/19/22 05/20/22 05/21/22 05/22/22 23:59 23:59 23:59 23:59 Intake Total 1979 2443.333 Output Total 240 400 Balance 1740 2043.333 - Objective General Appearance: positive: Alert, Mild distress (It hurts her sternum to sit up and move. She did work with PT today.), Other (Elderly woman who looks older than stated age.) Eyes Bilateral: positive: PERRL, EOMI ENT: positive: No signs of dehydration Neck: positive: No JVD. negative: Stiff neck Respiratory: positive: No respiratory distress, Other (Sternal pain). negative: Wheezes, Rales, Rhonchi Cardiovascular: positive: Regular rate & rhythm, Systolic murmur Abdomen: positive: Non-tender, No organomegaly, Nml bowel sounds, No distention Skin: positive: Warm, Dry Extremities: positive: Full ROM, Pedal edema Neurologic/Psychiatric: positive: CN's nml (2-12), Disoriented to time. negative: Motor nml (Pt is a pleasant 71 yr old F presenting w/ weakness, deficits in balance, transfers, bed mobility and gait. Pt exhibiting dense L sided weakness along her UE and LE; unable to actively move extremities to assist w/ transfers. Pt requiring maxA w/ to/from sup-sit transfers; able to assist w/ sup-sit) - Lab Results Fish Bones: 05/22/22 08:10 05/22/22 08:10 Other Labs: Lab Results x24hrs 05/22/22 05/22/22 Range/Units 08:10 08:10 WBC 6.6 (4.8-10.8) x10^3/uL RBC 4.77 (4.20-5.40) 10^6/uL Hgb 12.9 (12.0-16.0) g/dL Hct 40.2 (37.0-47.0) % MCV 84.3 (81.0-99.0) fL MCH 27.0 (27.0-31.0) pg MCHC 32.1 (32.0-36.0) g/dL RDW 13.8 (12.0-15.0) % Plt Count 225 (130-450) 10^3/uL MPV 10.2 (7.9-10.8) fL Neut # (Auto) 4.7 (1.5-6.6) 10^3/uL Lymph # (Auto) 1.2 L (1.5-3.5) 10^3/uL [place] # (Auto) 0.4 (0.0-1.0) 10^3/uL Eos # (Auto) 0.3 (0.0-0.7) 10^3/uL Baso # (Auto) 0.1 (0.0-0.1) 10^3/uL Absolute Nucleated RBC 0.00 x10^3/uL Nucleated RBC % 0.0 /100WBC Sodium 136 (135-145) mmol/L Potassium 3.4 L (3.5-5.0) mmol/L Chloride 108 (101-111) mmol/L Carbon Dioxide 24 (21-32) mmol/L Anion Gap 4.0 L (6-13) BUN 22 H (6-20) mg/dL Creatinine 1.5 H (0.4-1.0) mg/dL Estimated GFR (MDRD) 34 L (>89) Glucose 136 H (70-100) mg/dL Calcium 8.1 L (8.5-10.3) mg/dL Total Creatine Kinase 659 H (22-269) IU/L Assessment/Plan - Problem List (1) Hypoglycemia Impression: There is no reason for this patient to have such a low glucose. She is not malnourished, not starving. She does not take any medications that would do this to her. I will do work-up for possible insulinoma but this is highly unlikely.I have ordered proinsulin levels and C-peptide levels. But those are pending. Those are send out labs that may take a few days to get here. Here, with food, her glucose Has bumped up to normal. Every 4 hours checks have been stable since yesterday afternoon. Plan: Stop every 4 checks, continue to feed her, follow-up on labs when they come back (2) Chest wall contusion Qualifiers: Encounter type: initial encounter This is due to one of her many falls at home. No true fracture but her chest wall does hurt. Not enough for me to increase her pain medicines. (3) History of recent fall Conclusion/Plan: Patient has history of multiple falls. She has done this in the past and continues to do so in spite of being on anticoagulation. She does have elevation of her CK because of this but I do not feel she has rhabdomyolysis. In looking at the PT notes, it appears that her fall problem at this time may be due to #4.CPK on admission was 3034. Today it is 659. I do not really think she had true rhabdomyolysis but just muscle damage from her falls. Plan: Continue to run a low rate of IV fluids for hydration until CPK normal. Encourage p.o. intake. (4) History of stroke with residual deficit Conclusion/Plan: Slight left body weakness, cognitive deficits. Also appears to have poor insight into health, with frequent falls due to her ataxia. PT describes an exam where her left body weakness is much more significant than I thought. Again, this body weakness, with the patient who gets up impulsively and tries to walk may be the reason she is falling so much at home. NOtes from PT today: Pt is a pleasant 71 yr old F presenting w/ weakness, deficits in balance, transfers, bed mobility and gait. Pt exhibiting dense L sided weakness along her UE and LE; unable to actively move extremities to assist w/ transfers. Pt requiring maxA w/ to/from sup-sit transfers; able to assist w/ sup-sit transfer; using R LE and cane to guide L LE toward EOB; pt requiring heavy lifting assist along trunk to come to EOB. Pt sitting EOB w/ poor sitting balance; requiring maxA along trunk to maintain upright. Pt sitting along EOB for ~1-2 minutes before transferring back to supine d/t poor sitting balance and level of assist needed. Pt transferring back to supine w/ maxA; readjusted up in bed w/ maxAx2. Recommend d/c to SNF -vs- LTC when medically cleared to d/c as pt is not safe to return home alone at this time. Plan: At care conference, recommendation will be made for SNF placement with physical and occupational therapy. (5) Hypercoagulable state Conclusion/Plan: She carries a previous diagnosis of a possible protein C abnormality? She has an IVC and a filter. But legs and the rest of her body did not indicate a physical exam of someone who has chronic DVTs. With her falls, she is at risk of really injuring herself while on Xarelto. I will see if I can find the primary care records that go all the way back to the beginning of this diagnosis. Her primary care provider that is listed as a Dr. Carlitos Forrest in [employer]. Message left for him to call.
[2022-05-23] MEDS: SODIUM CHLORIDE FLUSH 0.9% 10 ML SYRINGE IVP SCH ×4 (00:02→17:19)
[2022-05-23] MEDS: ACETAMINOPHEN 325 MG TABLET PO PRN (01:23)
[2022-05-23 05:10] LABS: BASOPHILS # (AUTO) 0.1 10^3/uL (0.0-0.1); BASOPHILS % (AUTO) 0.9 %; EOSINOPHILS # (AUTO) 0.3 10^3/uL (0.0-0.7); EOSINOPHILS % (AUTO) 5.7 %; HCT - HEMATOCRIT 41.1 % (37.0-47.0); HGB - HEMOGLOBIN 12.9 g/dL (12.0-16.0); LYMPHOCYTES # (AUTO) 1.4 10^3/uL (1.5-3.5); MEAN CORPUSCULAR HEMOGLOBIN 26.8 pg (27.0-31.0); MEAN CORPUSCULAR HGB CONC 31.4 g/dL (32.0-36.0); MEAN CORPUSCULAR VOLUME 85.3 fL (81.0-99.0); MEAN PLATELET VOLUME 9.8 fL (7.9-10.8); MONOCYTES # (AUTO) 0.4 10^3/uL (0.0-1.0); NEUTROPHILS # (AUTO) 3.6 10^3/uL (1.5-6.6); NEUTROPHILS % (AUTO) 62.2 %; PLT - PLATELET COUNT 204 10^3/uL (130-450); RED BLOOD COUNT 4.82 10^6/uL (4.20-5.40); RED CELL DISTRIBUTION WIDTH 13.8 % (12.0-15.0); WHITE BLOOD COUNT 5.7 x10^3/uL (4.8-10.8)
[2022-05-23 05:31] LABS: CALCIUM 8.2 mg/dL (8.5-10.3); CREATININE 1.3 mg/dL (0.4-1.0); POTASSIUM 3.4 mmol/L (3.5-5.0)
[2022-05-23] MEDS: DEXTROSE 5%-0.9% NACL 1,000 ML IV SCH ×2 (06:21→15:42)
[2022-05-23] MEDS: METOPROLOL TARTRATE 25 MG TABLET PO SCH ×2 (08:06→21:46)
[2022-05-23] MEDS: ISOSORBIDE MONONITRATE ER 30 MG TABLET PO SCH (08:07)
[2022-05-23] MEDS: ENOXAPARIN 40 MG/0.4 ML SYRINGE SUBQ SCH (08:07)
[2022-05-23] MEDS: polyethylene glycoL 3350 17 GM PACKET PO SCH (08:07)
[2022-05-23] MEDS: POTASSIUM CHLORIDE 20 MEQ/15 ML UDC PO SCH (08:07)
[2022-05-23] MEDS: ZINC OXIDE 20% OINT 30 GM TUBE TOP PRN (09:40)
--- NOTE | 2022-05-23 17:13 | PROVIDER PROGRESS NOTE ---
Assessment/Plan - Problem List (1) HAILEE (acute kidney injury) Assessment/Plan: Mild HAILEE Improving Cont to encourage PO hydration, repeat labs in am, avoid nephrotoxic agents (2) Chest wall contusion Assessment/Plan: Improved (3) Hypoglycemia Assessment/Plan: Cause unclear C peptide and proinsulin levels pending Still feels weak, but BS is stabilizing F/u labs, blood sugar (4) Rhabdomyolysis Assessment/Plan: Improved, see HAILEE above (5) History of stroke with residual deficit Assessment/Plan: Pt w/ L sided weakness, unable to fully manage ADL's PT reccs SNF with PT and OT Work towards placement - Current Meds Current Meds: Current Medications Generic Name Dose Route Start Last Admin Trade Name Freq PRN Reason Stop Dose Admin Acetaminophen 650 mg 05/21/22 14:56 05/23/22 01:23 Acetaminophen 325 Mg Tablet PO 650 mg Q4HR PRN Administration Pain 1 to 4, or Fever Enoxaparin Sodium 40 mg 05/22/22 09:00 05/23/22 08:07 Enoxaparin 40 Mg/0.4 Ml Syringe SUBQ 40 mg DAILY VENTURA Administration Dextrose/Sodium Chloride 1,000 mls @ 100 mls/hr 05/21/22 15:00 05/23/22 15:42 D5ns IV 100 mls/hr .Q10H VENTURA Administration Isosorbide Mononitrate 30 mg 05/21/22 18:33 05/23/22 08:07 Isosorbide Mononitrate Er 30 Mg Tablet PO 30 mg DAILY VENTURA Administration Metoprolol Tartrate 25 mg 05/21/22 21:00 05/23/22 08:06 Metoprolol Tartrate 25 Mg Tablet PO 25 mg BID VENTURA Administration Multi-Ingredient Ointment 1 applic 05/22/22 00:41 05/23/22 09:40 Zinc Oxide 20% Oint 30 Gm Tube TOP 1 applic PRN PRN Administration Skin Care Polyethylene Glycol 17 gm 05/22/22 17:00 05/23/22 08:07 Polyethylene Glycol 3350 17 Gm Packet PO 17 gm DAILY VENTURA Administration Potassium Chloride 20 meq 05/22/22 15:00 05/23/22 08:07 Potassium Chloride 20 Meq/15 Ml Udc PO 20 meq DAILYWM VENTURA Administration Sodium Chloride 10 ml 05/21/22 17:00 05/23/22 08:07 Sodium Chloride Flush 0.9% 10 Ml Syringe IVP Not Given 0100,0900,1700 VENTURA - Lab Result Fish Bone Diagrams: 05/23/22 04:50 05/23/22 04:50 Subjective - Subjective Patient Reports: Feeling Better, Other (still feels weak, L arm completely flaccid) Objective Vital Signs: Vital Signs - 24 hr 05/22/22 05/23/22 05/23/22 23:49 08:00 08:06 Temperature 36.8 C 36.3 C L Heart Rate [ 79 75 Brachial] Respiratory 18 18 Rate Blood Pressure 180/90 H Blood Pressure 201/94 H [Left Brachial artery] Blood Pressure 155/69 H [Right Brachial artery] Blood Pressure [Sitting] O2 Saturation 93 94 05/23/22 05/23/22 05/23/22 09:15 13:00 13:07 Temperature Heart Rate [ Brachial] Respiratory Rate Blood Pressure Blood Pressure [Left Brachial artery] Blood Pressure 170/80 H 172/80 H [Right Brachial artery] Blood Pressure 176/89 H [Sitting] O2 Saturation 05/23/22 05/23/22 14:00 15:55 Temperature 36.5 C 37.0 C Heart Rate [ 61 78 Brachial] Respiratory 20 16 Rate Blood Pressure Blood Pressure [Left Brachial artery] Blood Pressure 183/91 H 182/101 H [Right Brachial artery] Blood Pressure [Sitting] O2 Saturation 94 94 Oxygen O2 Source Room air I&O (Last 24 Hrs): Intake and Output Totals x24h 05/21/22 05/22/22 05/23/22 23:59 23:59 23:59 Intake Total 1980 3503.333 2580 Output Total 635 788 4145 Balance 1740 2703.333 280 General: Alert, Oriented x3 HEENT: Atraumatic Neck: Supple Neuro: Alert, Focal Deficits (L arm 1/5 strength, sensation to light touch intact throughout) Cardiovascular: Regular rate, Normal S1, Normal S2 Respiratory: Chest non-tender, No respiratory distress Abdomen: Normal bowel sounds Extremities: No clubbing, No cyanosis, No edema - Results Results: Laboratory Results WBC 5.7 x10^3/uL (4.8-10.8) 05/23/22 04:50 RBC 4.82 10^6/uL (4.20-5.40) 05/23/22 04:50 Hgb 12.9 g/dL (12.0-16.0) 05/23/22 04:50 Hct 41.1 % (37.0-47.0) 05/23/22 04:50 MCV 85.3 fL (81.0-99.0) 05/23/22 04:50 MCH 26.8 pg (27.0-31.0) L 05/23/22 04:50 MCHC 31.4 g/dL (32.0-36.0) L 05/23/22 04:50 RDW 13.8 % (12.0-15.0) 05/23/22 04:50 Plt Count 204 10^3/uL (130-450) 05/23/22 04:50 MPV 9.8 fL (7.9-10.8) 05/23/22 04:50 Neut # (Auto) 3.6 10^3/uL (1.5-6.6) 05/23/22 04:50 Lymph # (Auto) 1.4 10^3/uL (1.5-3.5) L 05/23/22 04:50 Richardson # (Auto) 0.4 10^3/uL (0.0-1.0) 05/23/22 04:50 Eos # (Auto) 0.3 10^3/uL (0.0-0.7) 05/23/22 04:50 Baso # (Auto) 0.1 10^3/uL (0.0-0.1) 05/23/22 04:50 Absolute Nucleated RBC 0.00 x10^3/uL 05/23/22 04:50 Nucleated RBC % 0.0 /100WBC 05/23/22 04:50 PT 11.6 secs (9.9-12.6) 05/21/22 11:17 INR 1.0 (0.8-1.2) 05/21/22 11:17 APTT 23.7 secs (24.9-33.3) L 05/21/22 11:17 Sodium 142 mmol/L (135-145) 05/23/22 04:50 Potassium 3.4 mmol/L (3.5-5.0) L 05/23/22 04:50 Chloride 114 mmol/L (101-111) H 05/23/22 04:50 Carbon Dioxide 26 mmol/L (21-32) 05/23/22 04:50 Anion Gap 2.0 (6-13) L 05/23/22 04:50 BUN 16 mg/dL (6-20) 05/23/22 04:50 Creatinine 1.3 mg/dL (0.4-1.0) H 05/23/22 04:50 Estimated GFR (MDRD) 40 (>89) L 05/23/22 04:50 Glucose 115 mg/dL (70-100) H 05/23/22 04:50 Calcium 8.2 mg/dL (8.5-10.3) L 05/23/22 04:50 Magnesium 2.3 mg/dL (1.7-2.8) 05/21/22 11:17 Total Bilirubin 1.2 mg/dL (0.2-1.0) H 05/21/22 11:17 AST 132 IU/L (10-42) H 05/21/22 11:17 ALT 61 IU/L (10-60) H 05/21/22 11:17 Alkaline Phosphatase 65 IU/L (42-121) 05/21/22 11:17 Total Creatine Kinase 452 IU/L (22-269) H 05/23/22 04:50 Total Protein 8.1 g/dL (6.7-8.2) 05/21/22 11:17 Albumin 4.3 g/dL (3.2-5.5) 05/21/22 11:17 Globulin 3.8 g/dL (2.1-4.2) 05/21/22 11:17 Albumin/Globulin Ratio 1.1 (1.0-2.2) 05/21/22 11:17 Lipase 54 U/L (22-51) H 05/21/22 11:17 Nasal Adenovirus (PCR) NOT DETECTED 05/21/22 14:00 Nasal B. parapertussis DNA (PCR) NOT DETECTED 05/21/22 14:00 Nasal Coronavir 229E PCR NOT DETECTED 05/21/22 14:00 Nasal Coronavir HKU1 PCR NOT DETECTED 05/21/22 14:00 Nasal Coronavir NL63 PCR NOT DETECTED 05/21/22 14:00 Nasal Coronavir OC43 PCR NOT DETECTED 05/21/22 14:00 Nasal Enterovir/Rhinovir PCR NOT DETECTED 05/21/22 14:00 Nasal Influenza B PCR NOT DETECTED 05/21/22 14:00 Nasal Influenza A PCR NOT DETECTED 05/21/22 14:00 Nasal Parainfluen 1 PCR NOT DETECTED 05/21/22 14:00 Nasal Parainfluen 2 PCR NOT DETECTED 05/21/22 14:00 Nasal Parainfluen 3 PCR NOT DETECTED 05/21/22 14:00 Nasal Parainfluen 4 PCR NOT DETECTED 05/21/22 14:00 Nasal RSV (PCR) NOT DETECTED 05/21/22 14:00 Nasal B.pertussis DNA PCR NOT DETECTED 05/21/22 14:00 Nasal C.pneumoniae (PCR) NOT DETECTED 05/21/22 14:00 Fish Human Metapneumo PCR NOT DETECTED 05/21/22 14:00 Nasal M.pneumoniae (PCR) NOT DETECTED 05/21/22 14:00 Nasal SARS-CoV-2 (PCR) NOT DETECTED 05/21/22 14:00 ABX Reporting Has patient been on IV antibiotics over the past 48 hours?: No Current Medications - Current Medications Current Medications: Active Medications Generic Name Dose Route Start Last Admin Trade Name Freq PRN Reason Stop Dose Admin Acetaminophen 650 mg 05/21/22 14:56 05/23/22 01:23 Acetaminophen 325 Mg Tablet PO 650 mg Q4HR PRN Administration Pain 1 to 4, or Fever Enoxaparin Sodium 40 mg 05/22/22 09:00 05/23/22 08:07 Enoxaparin 40 Mg/0.4 Ml Syringe SUBQ 40 mg DAILY VENTURA Administration Dextrose/Sodium Chloride 1,000 mls @ 100 mls/hr 05/21/22 15:00 05/23/22 15:42 D5ns IV 100 mls/hr .Q10H VENTURA Administration Sodium Chloride 1,000 mls @ 83.333 mls/hr 05/23/22 18:00 Normal Saline 0.9% IV .Q12H VENTURA Isosorbide Mononitrate 30 mg 05/21/22 18:33 05/23/22 08:07 Isosorbide Mononitrate Er 30 Mg Tablet PO 30 mg DAILY VENTURA Administration Metoprolol Tartrate 25 mg 05/21/22 21:00 05/23/22 08:06 Metoprolol Tartrate 25 Mg Tablet PO 25 mg BID VENTURA Administration Morphine Sulfate 2 mg 05/21/22 14:56 Morphine 2 Mg/Ml Carpuject IVP Q2HR PRN Pain 8 to 10 Multi-Ingredient Ointment 1 applic 05/22/22 00:41 05/23/22 09:40 Zinc Oxide 20% Oint 30 Gm Tube TOP 1 applic PRN PRN Administration Skin Care Ondansetron HCl 4 mg 05/21/22 14:56 Ondansetron Odt 4 Mg Tablet TL Q6HR PRN Nausea / Vomiting Ondansetron HCl 4 mg 05/21/22 14:56 Ondansetron 4 Mg/2 Ml Vial IVP Q6HR PRN Nausea / Vomiting Polyethylene Glycol 17 gm 05/22/22 17:00 05/23/22 08:07 Polyethylene Glycol 3350 17 Gm Packet PO 17 gm DAILY VENTURA Administration Potassium Chloride 20 meq 05/22/22 15:00 05/23/22 08:07 Potassium Chloride 20 Meq/15 Ml Udc PO 20 meq DAILYWM VENTURA Administration Sodium Chloride 10 ml 05/21/22 14:56 Sodium Chloride Flush 0.9% 10 Ml Syringe IVP PRN PRN NEEDED PER PROVIDER ORDERS Sodium Chloride 10 ml 05/21/22 17:00 05/23/22 08:07 Sodium Chloride Flush 0.9% 10 Ml Syringe IVP Not Given 0100,0900,1700 VENTURA Albuterol Sulf [Ventolin Hfa Inhaler] 1 - 2 puffs INH Q4HR PRN 03/14/22 Amitriptyline [Elavil] 25 mg PO QPM 03/14/22 Donepezil HCl [Aricept] 10 mg PO QPM 03/14/22 Isosorbide Mononitrate [Isosorbide Mononitrate ER] 60 mg PO DAILY 03/14/22 Potassium Chloride 20 meq PO DAILY 03/14/22 Rivaroxaban [Xarelto] 20 mg PO QDDINNER 03/14/22 Tiotropium Warden [Spiriva Respimat] See Rx Instructions .ROUTE .COMPLEX 03/14/22 minoxidiL [Minoxidil] 2.5 mg PO BID 03/14/22 Atorvastatin [Lipitor] 40 mg PO QPM 05/22/22 Furosemide [Lasix] 1 tab PO BID 05/22/22 Meclizine HCl [Dramamine] 1 tab PO DAILY 05/22/22
[2022-05-23] MEDS: SODIUM CHLORIDE 0.9% 1,000 ML IV SCH (17:23)
[2022-05-24] MEDS: SODIUM CHLORIDE 0.9% 1,000 ML IV SCH ×2 (05:39→20:53)
[2022-05-24 06:07] LABS: CREATININE 1.1 mg/dL (0.4-1.0); POTASSIUM 3.7 mmol/L (3.5-5.0)
[2022-05-24 07:10] LABS: C-PEPTIDE SERUM 11.3 ng/mL (1.1-4.4)
[2022-05-24] MEDS: ISOSORBIDE MONONITRATE ER 30 MG TABLET PO SCH (07:56)
[2022-05-24] MEDS: METOPROLOL TARTRATE 25 MG TABLET PO SCH ×2 (07:56→20:53)
[2022-05-24] MEDS: ENOXAPARIN 40 MG/0.4 ML SYRINGE SUBQ SCH (07:57)
[2022-05-24] MEDS: SODIUM CHLORIDE FLUSH 0.9% 10 ML SYRINGE IVP SCH ×2 (07:57→15:33)
[2022-05-24] MEDS: POTASSIUM CHLORIDE 20 MEQ/15 ML UDC PO SCH (07:57)
[2022-05-24] MEDS: polyethylene glycoL 3350 17 GM PACKET PO SCH (07:57)
--- NOTE | 2022-05-24 14:23 | Discharge Plan ---
Discharge Plan for SNF / [facility] - Discharge Plan And Transition Orders Problem Reviewed?: Yes Condition: Stable Allergies and Adverse Reactions: Allergies Allergy/AdvReac Type Severity Reaction Status Date / Time aspirin Allergy Unknown Verified 05/21/22 10:52 cortisone Allergy Hives Verified 05/21/22 10:52 lisinopril Allergy Unknown Verified 05/21/22 10:52 Health Concerns: Patient was brought in after being found down. She was found to have a low blood sugar in the 30s. She was given dextrose and responded. She has since returned to what is likely her baseline mental status. She continues to have left-sided weakness secondary to a previous stroke. She has recovered from acute kidney injury and rhabdomyolysis. - SNF / CARE HOME Transition Orders Admit to (Facility): [facility] Discharge Diagnosis: Hypoglycemia - Resolved Acute kidney injuryresolved Rhabdomyolysisresolved Dementiaresolved CVA with residual left-sided deficitstable Medicare Certification Statement: I certify that Post Hospital correction care is medically necessary on a continuing basis for any of the conditions for which she/he is receiving care during hospitalization. Notify PCP of admission and forward orders to primary provider for signature. Weight on admission and: Weekly Other Notification Orders: Call PCP immediately if patient develops dyspnea, chest pain/tightness or edema. House Bowel Program: Yes Additional Bowel Program Orders: If no BM after 2 days, nurse may give M.O.M. 30ml PO PRN and/or ducolax Supp 1 NH and/or ANAHI 250mg P.O., and/or senna 1-2 tabs PO. On day 3 nurse may give repeat above order until residents constipation is resolved. Annual Influenza Vaccine (between Oct 11 and May 10): Yes Two-step PPD per [facility] [phone] or approved exception documents: Yes Medication Orders: PLEASE REFER TO THE DISCHARGE MEDICATION LIST. Insulin Orders?: No
--- NOTE | 2022-05-24 15:57 | PROVIDER PROGRESS NOTE ---
Assessment/Plan - Problem List (1) HAILEE (acute kidney injury) Assessment/Plan: Nearly resolved. Cont IVF, recheck BMP in am (2) Chest wall contusion Assessment/Plan: Improved. (3) Hypoglycemia Assessment/Plan: Cause unclear C peptide and proinsulin elevated, but without full work, can not r/u insulinoma or identify etiology. Would benefit from endocrine referral at d/c. F/u labs, blood sugar (4) Rhabdomyolysis Assessment/Plan: Improved. Cont IVF (5) History of stroke with residual deficit Assessment/Plan: Pt w/ L sided weakness, unable to fully manage ADL's PT reccs SNF with PT and OT Work towards placement Probably d/c on Friday (05/26) - Current Meds Current Meds: Current Medications Generic Name Dose Route Start Last Admin Trade Name Freq PRN Reason Stop Dose Admin Acetaminophen 650 mg 05/21/22 14:56 05/23/22 01:23 Acetaminophen 325 Mg Tablet PO 650 mg Q4HR PRN Administration Pain 1 to 4, or Fever Enoxaparin Sodium 40 mg 05/22/22 09:00 05/24/22 07:57 Enoxaparin 40 Mg/0.4 Ml Syringe SUBQ 40 mg DAILY VENTURA Administration Sodium Chloride 1,000 mls @ 83.333 mls/hr 05/23/22 18:00 05/24/22 05:39 Normal Saline 0.9% IV 83.333 mls/hr .Q12H VENTURA Administration Metoprolol Tartrate 25 mg 05/21/22 21:00 05/24/22 07:56 Metoprolol Tartrate 25 Mg Tablet PO 25 mg BID VENTURA Administration Multi-Ingredient Ointment 1 applic 05/22/22 00:41 05/23/22 09:40 Zinc Oxide 20% Oint 30 Gm Tube TOP 1 applic PRN PRN Administration Skin Care Polyethylene Glycol 17 gm 05/22/22 17:00 05/24/22 07:57 Polyethylene Glycol 3350 17 Gm Packet PO Not Given DAILY VENTURA Potassium Chloride 20 meq 05/22/22 15:00 05/24/22 07:57 Potassium Chloride 20 Meq/15 Ml Udc PO 20 meq DAILYWM VENTURA Administration Sodium Chloride 10 ml 05/21/22 17:00 05/24/22 15:33 Sodium Chloride Flush 0.9% 10 Ml Syringe IVP Not Given 0100,0900,1700 VENTURA - Lab Result Fish Bone Diagrams: 05/23/22 04:50 05/24/22 05:53 - Additional Planning My Orders: My Active Orders 05/23/22 18:00 Sodium Chloride 0.9% [Normal Saline 0.9%] 1,000 ml IV 83.333 mls/hr 05/24/22 17:00 Rivaroxaban [Xarelto] 20 mg PO QDDINNER 05/24/22 21:00 Atorvastatin [Lipitor] 40 mg PO QPM Donepezil [Aricept] 10 mg PO QPM Furosemide [Lasix] 40 mg PO BID minoxidiL [Minoxidil] 2.5 mg PO BID 05/25/22 05:00 BMP - BASIC METABOLIC PANEL [CHEM] DAILYLAB 05/25/22 09:00 Isosorbide Mononitrate ER [Imdur] 60 mg PO DAILY 05/26/22 05:00 BMP - BASIC METABOLIC PANEL [CHEM] DAILYLAB Subjective - Subjective Patient Reports: Feeling Better Objective Vital Signs: Vital Signs - 24 hr 05/23/22 05/23/22 05/24/22 15:55 21:46 00:12 Temperature 37.0 C 36.3 C L Heart Rate [ 78 66 Brachial] Respiratory 16 20 Rate Blood Pressure 199/87 H Blood Pressure 182/101 H 176/84 H [Right Brachial artery] O2 Saturation 94 96 05/24/22 05/24/22 05/24/22 07:40 07:56 15:09 Temperature 36.5 C 36.6 C Heart Rate [ 66 71 Brachial] Respiratory 18 18 Rate Blood Pressure 191/104 H Blood Pressure 158/78 H [Right Brachial artery] O2 Saturation 96 95 Oxygen O2 Source Room air I&O (Last 24 Hrs): Intake and Output Totals x24h 05/22/22 05/23/22 05/24/22 23:59 23:59 23:59 Intake Total 3503.333 2980 3840 Output Total 800 2950 1400 Balance 2703.445 35 0126 General: Alert HEENT: Atraumatic Neuro: Alert, Focal Deficits (Left sided UE weakness), Other (AAO x 2, oriented to person and place (hospital)) Cardiovascular: Regular rate, Normal S1, Normal S2 Abdomen: Normal bowel sounds - Results Results: Laboratory Results WBC 5.7 x10^3/uL (4.8-10.8) 05/23/22 04:50 RBC 4.82 10^6/uL (4.20-5.40) 05/23/22 04:50 Hgb 12.9 g/dL (12.0-16.0) 05/23/22 04:50 Hct 41.1 % (37.0-47.0) 05/23/22 04:50 MCV 85.3 fL (81.0-99.0) 05/23/22 04:50 MCH 26.8 pg (27.0-31.0) L 05/23/22 04:50 MCHC 31.4 g/dL (32.0-36.0) L 05/23/22 04:50 RDW 13.8 % (12.0-15.0) 05/23/22 04:50 Plt Count 204 10^3/uL (130-450) 05/23/22 04:50 MPV 9.8 fL (7.9-10.8) 05/23/22 04:50 Neut # (Auto) 3.6 10^3/uL (1.5-6.6) 05/23/22 04:50 Lymph # (Auto) 1.4 10^3/uL (1.5-3.5) L 05/23/22 04:50 [place]cock # (Auto) 0.4 10^3/uL (0.0-1.0) 05/23/22 04:50 Eos # (Auto) 0.3 10^3/uL (0.0-0.7) 05/23/22 04:50 Baso # (Auto) 0.1 10^3/uL (0.0-0.1) 05/23/22 04:50 Absolute Nucleated RBC 0.00 x10^3/uL 05/23/22 04:50 Nucleated RBC % 0.0 /100WBC 05/23/22 04:50 PT 11.6 secs (9.9-12.6) 05/21/22 11:17 INR 1.0 (0.8-1.2) 05/21/22 11:17 APTT 23.7 secs (24.9-33.3) L 05/21/22 11:17 Sodium 141 mmol/L (135-145) 05/24/22 05:53 Potassium 3.7 mmol/L (3.5-5.0) 05/24/22 05:53 Chloride 107 mmol/L (101-111) 05/24/22 05:53 Carbon Dioxide 24 mmol/L (21-32) 05/24/22 05:53 Anion Gap 10.0 (6-13) 05/24/22 05:53 BUN 13 mg/dL (6-20) 05/24/22 05:53 Creatinine 1.1 mg/dL (0.4-1.0) H 05/24/22 05:53 Estimated GFR (MDRD) 49 (>89) L 05/24/22 05:53 Glucose 106 mg/dL (70-100) H 05/24/22 05:53 Insulin Level 73.0 uIU/mL (2.6-24.9) H 05/23/22 09:04 C-Peptide 11.3 ng/mL (1.1-4.4) H 05/23/22 09:04 Calcium 9.0 mg/dL (8.5-10.3) 05/24/22 05:53 Magnesium 2.3 mg/dL (1.7-2.8) 05/21/22 11:17 Total Bilirubin 1.2 mg/dL (0.2-1.0) H 05/21/22 11:17 AST 132 IU/L (10-42) H 05/21/22 11:17 ALT 61 IU/L (10-60) H 05/21/22 11:17 Alkaline Phosphatase 65 IU/L (42-121) 05/21/22 11:17 Total Creatine Kinase 452 IU/L (22-269) H 05/23/22 04:50 Total Protein 8.1 g/dL (6.7-8.2) 05/21/22 11:17 Albumin 4.3 g/dL (3.2-5.5) 05/21/22 11:17 Globulin 3.8 g/dL (2.1-4.2) 05/21/22 11:17 Albumin/Globulin Ratio 1.1 (1.0-2.2) 05/21/22 11:17 Lipase 54 U/L (22-51) H 05/21/22 11:17 Nasal Adenovirus (PCR) NOT DETECTED 05/21/22 14:00 Nasal B. parapertussis DNA (PCR) NOT DETECTED 05/21/22 14:00 Nasal Coronavir 229E PCR NOT DETECTED 05/21/22 14:00 Nasal Coronavir HKU1 PCR NOT DETECTED 05/21/22 14:00 Nasal Coronavir NL63 PCR NOT DETECTED 05/21/22 14:00 Nasal Coronavir OC43 PCR NOT DETECTED 05/21/22 14:00 Nasal Enterovir/Rhinovir PCR NOT DETECTED 05/21/22 14:00 Nasal Influenza B PCR NOT DETECTED 05/21/22 14:00 Nasal Influenza A PCR NOT DETECTED 05/21/22 14:00 Nasal Parainfluen 1 PCR NOT DETECTED 05/21/22 14:00 Nasal Parainfluen 2 PCR NOT DETECTED 05/21/22 14:00 Nasal Parainfluen 3 PCR NOT DETECTED 05/21/22 14:00 Nasal Parainfluen 4 PCR NOT DETECTED 05/21/22 14:00 Nasal RSV (PCR) NOT DETECTED 05/21/22 14:00 Nasal B.pertussis DNA PCR NOT DETECTED 05/21/22 14:00 Nasal C.pneumoniae (PCR) NOT DETECTED 05/21/22 14:00 Fish Human Metapneumo PCR NOT DETECTED 05/21/22 14:00 Nasal M.pneumoniae (PCR) NOT DETECTED 05/21/22 14:00 Nasal SARS-CoV-2 (PCR) NOT DETECTED 05/21/22 14:00 ABX Reporting Has patient been on IV antibiotics over the past 48 hours?: No
[2022-05-24] MEDS: ATORVASTATIN 40 MG TABLET PO SCH (20:53)
[2022-05-24] MEDS: APIXABAN 5 MG TABLET PO SCH (20:53)
[2022-05-24] MEDS: FUROSEMIDE 40 MG TABLET PO SCH (20:54)
[2022-05-24] MEDS: DONEPEZIL 5 MG TABLET PO SCH (20:54)
[2022-05-24] MEDS: MINOXIDIL 2.5 MG PO SCH (20:55)
[2022-05-25] MEDS: SODIUM CHLORIDE FLUSH 0.9% 10 ML SYRINGE IVP SCH ×4 (00:47→23:46)
[2022-05-25 06:38] LABS: CREATININE 1.3 mg/dL (0.4-1.0); POTASSIUM 3.8 mmol/L (3.5-5.0)
[2022-05-25] MEDS: ISOSORBIDE MONONITRATE ER 30 MG TABLET PO SCH (08:38)
[2022-05-25] MEDS: APIXABAN 5 MG TABLET PO SCH ×2 (08:38→20:27)
[2022-05-25] MEDS: POTASSIUM CHLORIDE 20 MEQ/15 ML UDC PO SCH (08:38)
[2022-05-25] MEDS: METOPROLOL TARTRATE 25 MG TABLET PO SCH ×2 (08:39→20:27)
[2022-05-25] MEDS: FUROSEMIDE 40 MG TABLET PO SCH ×2 (08:39→20:27)
[2022-05-25] MEDS: polyethylene glycoL 3350 17 GM PACKET PO SCH ×2 (08:40→09:57)
[2022-05-25] MEDS: ENOXAPARIN 40 MG/0.4 ML SYRINGE SUBQ SCH (08:40)
[2022-05-25] MEDS: SODIUM CHLORIDE 0.9% 1,000 ML IV SCH ×2 (08:43→20:33)
[2022-05-25] MEDS ORDERED: POTASSIUM CHLORIDE 10 MEQ PO SCH (09:00)
[2022-05-25] MEDS: MINOXIDIL 2.5 MG PO SCH ×2 (09:59→19:58)
--- NOTE | 2022-05-25 13:20 | PROVIDER PROGRESS NOTE ---
Assessment/Plan - Problem List (1) HAILEE (acute kidney injury) Assessment/Plan: Nearly resolved. Cont IVF, recheck BMP in am (2) Chest wall contusion Assessment/Plan: Improved (3) Hypoglycemia Assessment/Plan: Cause unclear C peptide and proinsulin elevated, but without full work, can not r/u insulinoma or identify etiology. Would benefit from endocrine referral at d/c. F/u labs, blood sugar (4) Rhabdomyolysis Assessment/Plan: Resolved (5) History of stroke with residual deficit Assessment/Plan: Pt w/ L sided weakness, unable to fully manage ADL's PT reccs SNF with PT and OT Work towards placement Probably d/c on Friday (05/26) - Current Meds Current Meds: Current Medications Generic Name Dose Route Start Last Admin Trade Name Freq PRN Reason Stop Dose Admin Acetaminophen 650 mg 05/21/22 14:56 05/23/22 01:23 Acetaminophen 325 Mg Tablet PO 650 mg Q4HR PRN Administration Pain 1 to 4, or Fever Apixaban 5 mg 05/24/22 21:00 05/25/22 08:38 Apixaban 5 Mg Tablet PO 5 mg BID VENTURA Administration Atorvastatin Calcium 40 mg 05/24/22 21:00 05/24/22 20:53 Atorvastatin 40 Mg Tablet PO 40 mg QPM VENTURA Administration Donepezil HCl 10 mg 05/24/22 21:00 05/24/22 20:54 Donepezil 5 Mg Tablet PO 10 mg QPM VENTURA Administration Enoxaparin Sodium 40 mg 05/22/22 09:00 05/25/22 08:40 Enoxaparin 40 Mg/0.4 Ml Syringe SUBQ 40 mg DAILY VENTURA Administration Furosemide 40 mg 05/24/22 21:00 05/25/22 08:39 Furosemide 40 Mg Tablet PO 40 mg BID VENTURA Administration Sodium Chloride 1,000 mls @ 83.333 mls/hr 05/23/22 18:00 05/25/22 08:43 Normal Saline 0.9% IV 83.333 mls/hr .Q12H VENTURA Administration Isosorbide Mononitrate 60 mg 05/25/22 09:00 05/25/22 08:38 Isosorbide Mononitrate Er 30 Mg Tablet PO 60 mg DAILY VENTURA Administration Metoprolol Tartrate 25 mg 05/21/22 21:00 05/25/22 08:39 Metoprolol Tartrate 25 Mg Tablet PO 25 mg BID VENTURA Administration Multi-Ingredient Ointment 1 applic 05/22/22 00:41 05/23/22 09:40 Zinc Oxide 20% Oint 30 Gm Tube TOP 1 applic PRN PRN Administration Skin Care Non-Formulary Medication 2.5 mg 05/24/22 21:00 05/25/22 09:59 Minoxidil [Minoxidil] PO Not Given BID VENTURA Polyethylene Glycol 17 gm 05/22/22 17:00 05/25/22 09:57 Polyethylene Glycol 3350 17 Gm Packet PO Not Given DAILY VENTURA Potassium Chloride 20 meq 05/22/22 15:00 05/25/22 08:38 Potassium Chloride 20 Meq/15 Ml Udc PO 20 meq DAILYWM VENTURA Administration Sodium Chloride 10 ml 05/21/22 17:00 05/25/22 08:41 Sodium Chloride Flush 0.9% 10 Ml Syringe IVP 10 ml 0100,0900,1700 VENTURA Administration - Lab Result Lab results reviewed: Yes Fish Bone Diagrams: 05/23/22 04:50 05/25/22 06:23 - Additional Planning Condition/Complexity: Stable My Orders: My Active Orders 05/24/22 21:00 Apixaban [Eliquis] 5 mg PO BID Atorvastatin [Lipitor] 40 mg PO QPM Donepezil [Aricept] 10 mg PO QPM Furosemide [Lasix] 40 mg PO BID minoxidiL [Minoxidil] 2.5 mg PO BID 05/25/22 09:00 Isosorbide Mononitrate ER [Imdur] 60 mg PO DAILY 05/26/22 05:00 BMP - BASIC METABOLIC PANEL [CHEM] DAILYLAB Subjective - Subjective Patient Reports: Feeling Better Nursing Reports: No Complaints Objective Vital Signs: Vital Signs - 24 hr 05/24/22 05/24/22 05/25/22 15:09 20:53 00:12 Temperature 36.6 C 36.5 C Heart Rate [ 71 64 Brachial] Respiratory 18 16 Rate Blood Pressure 176/92 H Blood Pressure 158/78 H 172/88 H [Right Brachial artery] O2 Saturation 95 93 05/25/22 05/25/22 07:33 08:39 Temperature 36.4 C L Heart Rate [ 70 Brachial] Respiratory 18 Rate Blood Pressure 187/88 H Blood Pressure 187/88 H [Right Brachial artery] O2 Saturation 92 Oxygen O2 Source Room air I&O (Last 24 Hrs): Intake and Output Totals x24h 05/23/22 05/24/22 05/25/22 23:59 23:59 23:59 Intake Total 2980 5200 1956.107 Output Total 2950 1800 Balance 30 3400 1956.107 General: Alert HEENT: Atraumatic, EOMI Neuro: Alert, Disoriented, Focal Deficits (L arm weakness) Cardiovascular: Regular rate, Normal S1, Normal S2 Respiratory: Chest non-tender, No respiratory distress Abdomen: Normal bowel sounds, No tenderness, No hepatospenomegaly Extremities: No clubbing, No cyanosis, No edema Skin: No rashes - Results Results: Laboratory Results WBC 5.7 x10^3/uL (4.8-10.8) 05/23/22 04:50 RBC 4.82 10^6/uL (4.20-5.40) 05/23/22 04:50 Hgb 12.9 g/dL (12.0-16.0) 05/23/22 04:50 Hct 41.1 % (37.0-47.0) 05/23/22 04:50 MCV 85.3 fL (81.0-99.0) 05/23/22 04:50 MCH 26.8 pg (27.0-31.0) L 05/23/22 04:50 MCHC 31.4 g/dL (32.0-36.0) L 05/23/22 04:50 RDW 13.8 % (12.0-15.0) 05/23/22 04:50 Plt Count 204 10^3/uL (130-450) 05/23/22 04:50 MPV 9.8 fL (7.9-10.8) 05/23/22 04:50 Neut # (Auto) 3.6 10^3/uL (1.5-6.6) 05/23/22 04:50 Lymph # (Auto) 1.4 10^3/uL (1.5-3.5) L 05/23/22 04:50 [place] # (Auto) 0.4 10^3/uL (0.0-1.0) 05/23/22 04:50 Eos # (Auto) 0.3 10^3/uL (0.0-0.7) 05/23/22 04:50 Baso # (Auto) 0.1 10^3/uL (0.0-0.1) 05/23/22 04:50 Absolute Nucleated RBC 0.00 x10^3/uL 05/23/22 04:50 Nucleated RBC % 0.0 /100WBC 05/23/22 04:50 PT 11.6 secs (9.9-12.6) 05/21/22 11:17 INR 1.0 (0.8-1.2) 05/21/22 11:17 APTT 23.7 secs (24.9-33.3) L 05/21/22 11:17 Sodium 137 mmol/L (135-145) 05/25/22 06:23 Potassium 3.8 mmol/L (3.5-5.0) 05/25/22 06:23 Chloride 105 mmol/L (101-111) 05/25/22 06:23 Carbon Dioxide 24 mmol/L (21-32) 05/25/22 06:23 Anion Gap 8.0 (6-13) 05/25/22 06:23 BUN 21 mg/dL (6-20) H 05/25/22 06:23 Creatinine 1.3 mg/dL (0.4-1.0) H 05/25/22 06:23 Estimated GFR (MDRD) 40 (>89) L 05/25/22 06:23 Glucose 111 mg/dL (70-100) H 05/25/22 06:23 Insulin Level 73.0 uIU/mL (2.6-24.9) H 05/23/22 09:04 C-Peptide 11.3 ng/mL (1.1-4.4) H 05/23/22 09:04 Calcium 9.0 mg/dL (8.5-10.3) 05/25/22 06:23 Magnesium 2.3 mg/dL (1.7-2.8) 05/21/22 11:17 Total Bilirubin 1.2 mg/dL (0.2-1.0) H 05/21/22 11:17 AST 132 IU/L (10-42) H 05/21/22 11:17 ALT 61 IU/L (10-60) H 05/21/22 11:17 Alkaline Phosphatase 65 IU/L (42-121) 05/21/22 11:17 Total Creatine Kinase 452 IU/L (22-269) H 05/23/22 04:50 Total Protein 8.1 g/dL (6.7-8.2) 05/21/22 11:17 Albumin 4.3 g/dL (3.2-5.5) 05/21/22 11:17 Globulin 3.8 g/dL (2.1-4.2) 05/21/22 11:17 Albumin/Globulin Ratio 1.1 (1.0-2.2) 05/21/22 11:17 Lipase 54 U/L (22-51) H 05/21/22 11:17 Nasal Adenovirus (PCR) NOT DETECTED 05/21/22 14:00 Nasal B. parapertussis DNA (PCR) NOT DETECTED 05/21/22 14:00 Nasal Coronavir 229E PCR NOT DETECTED 05/21/22 14:00 Nasal Coronavir HKU1 PCR NOT DETECTED 05/21/22 14:00 Nasal Coronavir NL63 PCR NOT DETECTED 05/21/22 14:00 Nasal Coronavir OC43 PCR NOT DETECTED 05/21/22 14:00 Nasal Enterovir/Rhinovir PCR NOT DETECTED 05/21/22 14:00 Nasal Influenza B PCR NOT DETECTED 05/21/22 14:00 Nasal Influenza A PCR NOT DETECTED 05/21/22 14:00 Nasal Parainfluen 1 PCR NOT DETECTED 05/21/22 14:00 Nasal Parainfluen 2 PCR NOT DETECTED 05/21/22 14:00 Nasal Parainfluen 3 PCR NOT DETECTED 05/21/22 14:00 Nasal Parainfluen 4 PCR NOT DETECTED 05/21/22 14:00 Nasal RSV (PCR) NOT DETECTED 05/21/22 14:00 Nasal B.pertussis DNA PCR NOT DETECTED 05/21/22 14:00 Nasal C.pneumoniae (PCR) NOT DETECTED 05/21/22 14:00 Fish Human Metapneumo PCR NOT DETECTED 05/21/22 14:00 Nasal M.pneumoniae (PCR) NOT DETECTED 05/21/22 14:00 Nasal SARS-CoV-2 (PCR) NOT DETECTED 05/21/22 14:00 ABX Reporting Has patient been on IV antibiotics over the past 48 hours?: No Current Medications - Current Medications Current Medications: Active Medications Generic Name Dose Route Start Last Admin Trade Name Freq PRN Reason Stop Dose Admin Acetaminophen 650 mg 05/21/22 14:56 05/23/22 01:23 Acetaminophen 325 Mg Tablet PO 650 mg Q4HR PRN Administration Pain 1 to 4, or Fever Apixaban 5 mg 05/24/22 21:00 05/25/22 08:38 Apixaban 5 Mg Tablet PO 5 mg BID VENTURA Administration Atorvastatin Calcium 40 mg 05/24/22 21:00 05/24/22 20:53 Atorvastatin 40 Mg Tablet PO 40 mg QPM VENTURA Administration Donepezil HCl 10 mg 05/24/22 21:00 05/24/22 20:54 Donepezil 5 Mg Tablet PO 10 mg QPM VENTURA Administration Enoxaparin Sodium 40 mg 05/22/22 09:00 05/25/22 08:40 Enoxaparin 40 Mg/0.4 Ml Syringe SUBQ 40 mg DAILY VENTURA Administration Furosemide 40 mg 05/24/22 21:00 05/25/22 08:39 Furosemide 40 Mg Tablet PO 40 mg BID VENTURA Administration Sodium Chloride 1,000 mls @ 83.333 mls/hr 05/23/22 18:00 05/25/22 08:43 Normal Saline 0.9% IV 83.333 mls/hr .Q12H VENTURA Administration Isosorbide Mononitrate 60 mg 05/25/22 09:00 05/25/22 08:38 Isosorbide Mononitrate Er 30 Mg Tablet PO 60 mg DAILY [facility] Administration Metoprolol Tartrate 25 mg 05/21/22 21:00 05/25/22 08:39 Metoprolol Tartrate 25 Mg Tablet PO 25 mg BID [facility] Administration Morphine Sulfate 2 mg 05/21/22 14:56 Morphine 2 Mg/Ml Carpuject IVP Q2HR PRN Pain 8 to 10 Multi-Ingredient Ointment 1 applic 05/22/22 00:41 05/23/22 09:40 Zinc Oxide 20% Oint 30 Gm Tube TOP 1 applic PRN PRN Administration Skin Care Non-Formulary Medication 2.5 mg 05/24/22 21:00 05/25/22 09:59 Minoxidil [Minoxidil] PO Not Given BID [facility] Ondansetron HCl 4 mg 05/21/22 14:56 Ondansetron Odt 4 Mg Tablet TL Q6HR PRN Nausea / Vomiting Ondansetron HCl 4 mg 05/21/22 14:56 Ondansetron 4 Mg/2 Ml Vial IVP Q6HR PRN Nausea / Vomiting Polyethylene Glycol 17 gm 05/22/22 17:00 05/25/22 09:57 Polyethylene Glycol 3350 17 Gm Packet PO Not Given DAILY VENTURA Potassium Chloride 20 meq 05/22/22 15:00 05/25/22 08:38 Potassium Chloride 20 Meq/15 Ml Udc PO 20 meq DAILYWM VENTURA Administration Sodium Chloride 10 ml 05/21/22 14:56 Sodium Chloride Flush 0.9% 10 Ml Syringe IVP PRN PRN NEEDED PER PROVIDER ORDERS Sodium Chloride 10 ml 05/21/22 17:00 05/25/22 08:41 Sodium Chloride Flush 0.9% 10 Ml Syringe IVP 10 ml 0100,0900,1700 VENTURA Administration Albuterol Sulf [Ventolin Hfa Inhaler] 1 - 2 puffs INH Q4HR PRN 03/14/22 Donepezil HCl [Aricept] 10 mg PO QPM 03/14/22 Isosorbide Mononitrate [Isosorbide Mononitrate ER] 60 mg PO DAILY 03/14/22 Potassium Chloride 20 meq PO DAILY 03/14/22 Rivaroxaban [Xarelto] 20 mg PO QDDINNER 03/14/22 Tiotropium [place] [Spiriva Respimat] See Rx Instructions .ROUTE .COMPLEX 03/14/22 minoxidiL [Minoxidil] 2.5 mg PO BID 03/14/22 Atorvastatin [Lipitor] 40 mg PO QPM 05/22/22 Furosemide [Lasix] 1 tab PO BID 05/22/22
[2022-05-25] MEDS: ACETAMINOPHEN 325 MG TABLET PO PRN ×2 (15:39→20:24)
[2022-05-25] MEDS: DONEPEZIL 5 MG TABLET PO SCH (20:27)
[2022-05-25] MEDS: ATORVASTATIN 40 MG TABLET PO SCH (20:27)
[2022-05-26 05:52] LABS: CALCIUM 8.9 mg/dL (8.5-10.3); CREATININE 1.2 mg/dL (0.4-1.0); POTASSIUM 3.6 mmol/L (3.5-5.0)
[2022-05-26] MEDS: SODIUM CHLORIDE 0.9% 1,000 ML IV SCH (08:25)
[2022-05-26] MEDS: POTASSIUM CHLORIDE 20 MEQ/15 ML UDC PO SCH (08:27)
[2022-05-26] MEDS: APIXABAN 5 MG TABLET PO SCH (08:27)
[2022-05-26] MEDS: METOPROLOL TARTRATE 25 MG TABLET PO SCH (08:27)
[2022-05-26] MEDS: ISOSORBIDE MONONITRATE ER 30 MG TABLET PO SCH (08:28)
[2022-05-26] MEDS: SODIUM CHLORIDE FLUSH 0.9% 10 ML SYRINGE IVP SCH (08:28)
[2022-05-26] MEDS: polyethylene glycoL 3350 17 GM PACKET PO SCH (08:28)
[2022-05-26] MEDS: FUROSEMIDE 40 MG TABLET PO SCH (08:28)
[2022-05-26] MEDS: ENOXAPARIN 40 MG/0.4 ML SYRINGE SUBQ SCH (08:28)
[2022-05-26] MEDS: ACETAMINOPHEN 325 MG TABLET PO PRN (08:29)
[2022-05-26] MEDS: MINOXIDIL 2.5 MG PO SCH (08:32)
[2022-05-26 14:51] VITALS: BP 174/95
--- NOTE | 2022-05-26 15:16 | DISCHARGE SUMMARY ---
Discharge Summary Admit Date: 05/21/22 Discharge Date: 05/26/22 Discharging Provider: Dr fJ Amanda Code Status: Do Not Attempt Resuscitation Condition at Discharge: Stable Discharge Disposition: 03 SNF DC/Xfer - DIAGNOSES Admission Diagnoses: Hypoglycemiaresolved Chest wall contusionimproved History of recent fall History of stroke with residual left-sided deficit Hypercoagulable state - HPI History of Present Illness: This is a 71-year-old female who has a history of stroke due to hypercoagulable state, a craniotomy, and IVC filter and a subsequent mild left-sided deficit that presents for a second admission. Her first admission was in March where she had worsening left-sided weakness. She has a caregiver, and she does take her medications on a regular basis. She has a timed dispenser machine and there are no missed doses of diuretic or Xarelto. In the emergency room she had a dense hemiplegia and dysarthria present. By the next day all of this deficit had resolved. She was gesticulating, laughing spontaneously. Her CT angiogram showed her to have a focal 80% stenosis in the right M1 segment which may have caused her to have temporary left-sided deficit. MRI of the brain and CT of the brain confirmed previous bibasilar strokes. Physical therapy and Occupational Therapy evaluated her and found her to have cognitive deficits, ataxia, weakness and at high risk for falls. Because she lives alone I felt she was probably a candidate for long-term placement. She lives in her own home and her power of corporate attorney and friend live next-door. Her current caregiver/POA is experiencing caregiver burnout. They are thinking of starting the process for placing her in a care home, assisted living facility or fdc. She now returns with increasing falls over the last 4 to 5 days. Less appetite. EMS was called because she was found down. They report her blood sugar is 30 and she was given IV dextrose with improvement in mentation. Sugar went to 52. The patient does not take any glucose lowering drugs. In the emergency room lab draw showed a glucose of 112. Unfortunately she had an elevated CK from all of her falls at 3034. Creatinine was minimally elevated at 1.7 whereas at discharge she was 1.5 in March. CBC was stable. Urinalysis had squamous cells in it. She was COVID-negative. Head CT had no acute changes and compared to prior imaging. Cervical spine CT had moderate degenerative changes. No acute fracture or subluxation. Chest CT was done because the patient reported, as she fell, hitting her chest on the sink in the bathroom. She has calcified pleural plaques and thickening at the right lung base. But no hemothorax or pneumothorax. Moderate hiatal hernia. Chest wall is without hematoma. She has a sternal deformity present without definitive acute fracture line. No definitive acute, displaced fracture identified. Abdomen pelvis CT has no acute traumatic abnormality. When the patient returned from the CT scanner, recheck at [id number] glucose was in the 50s again. She was given a snack, and repeat glucose improved. As such I am being asked to evaluate the patient for hypoglycemia. - HOSPITAL COURSE Hospital Course: Patient had a relatively uneventful hospital course. Her lab work improved after admission. Her chest wall pain improved. She continues to have left- sided weakness which was consistent with her previous stroke. With regards to the hypoglycemia, a proinsulin and C-peptide level were ordered and both elevated. However her blood sugar was checked daily throughout the hospital stay and was normal without any intervention. Unfortunately, there is no endocrinology consult available at this facility. An attempt was made to obtain a remote consult via [facility] but this was also not available. Patient would benefit from an outpatient endocrinology referral however it does not appear that the patient likely has an insulinoma especially given that her imaging did not show any evidence of tumor. Thus it was felt safe enough for the patient to discharge back to her facility and pursue an outpatient work-up. - ALLERGIES Allergies/Adverse Reactions: Allergies Allergy/AdvReac Type Severity Reaction Status Date / Time aspirin Allergy Unknown Verified 05/21/22 10:52 cortisone Allergy Hives Verified 05/21/22 10:52 lisinopril Allergy Unknown Verified 05/21/22 10:52 - MEDICATIONS Home Medications: Ambulatory Orders Medication Instructions Recorded Confirmed Albuterol Sulf [Ventolin Hfa 1 - 2 puffs INH Q4HR PRN 03/14/22 05/22/22 Inhaler] Donepezil HCl [Aricept] 10 mg PO QPM 03/14/22 05/23/22 Isosorbide Mononitrate [Isosorbide 60 mg PO DAILY 03/14/22 05/22/22 Mononitrate ER] Potassium Chloride 20 meq PO DAILY 03/14/22 05/22/22 Rivaroxaban [Xarelto] 20 mg PO QDDINNER 03/14/22 05/23/22 Tiotropium [place] [Spiriva See Rx Instructions .ROUTE .COMPLEX 03/14/22 05/22/22 Respimat] minoxidiL [Minoxidil] 2.5 mg PO BID 03/14/22 05/22/22 Aspirin EC [Ecotrin] 81 mg PO DAILY #180 tablet 03/16/22 05/22/22 Atorvastatin [Lipitor] 40 mg PO QPM 05/22/22 05/22/22 Furosemide [Lasix] 1 tab PO BID 05/22/22 05/22/22 Acetaminophen [Tylenol] 650 mg PO Q4HR PRN tab 05/24/22 - PHYSICAL EXAM AT DISCHARGE General Appearance: positive: No acute distress Eyes Bilateral: positive: Normal inspection Neck: positive: Nml inspection, Thyroid nml Respiratory: positive: Chest non-tender, No respiratory distress, Breath sounds nml Cardiovascular: positive: Regular rate & rhythm, No murmur, No gallop Abdomen: positive: Non-tender, No organomegaly, Nml bowel sounds, No distention Skin: positive: Color nml Neurologic/Psychiatric: positive: Disoriented to time, Other (Left-sided upper extremity weakness). negative: Disoriented to person, Disoriented to place - LABS Result Diagrams: 05/23/22 04:50 05/26/22 05:05 - DIAGNOSTIC IMAGING Diagnostic Imaging Results: Final report reviewed - TIME SPENT Time Spent in Discharge (Minutes): 33
== END 2022-05-26 13:34 | DRG 641 ==
LOC: EDUNIT# → ED 10:47 → MS2 14:56 → OBSVTOIN 05-22 14:30
PROVIDERS: ADMIT Specialist; ATTEND Family Medicine Sports Medicine
DX: E16.2 Hypoglycemia, unspecified (principal); N17.9 Acute kidney failure, unspecified; I69.354 Hemiplegia and hemiparesis following cerebral infarction affecting left non-dominant side; Z20.822 Contact with and (suspected) exposure to COVID-19; M62.82 Rhabdomyolysis; D68.59 Other primary thrombophilia; S20.219A Contusion of unspecified front wall of thorax, initial encounter; W18.12XA Fall from or off toilet with subsequent striking against object, initial encounter; J92.9 Pleural plaque without asbestos; R63.0 Anorexia; I50.9 Heart failure, unspecified; R27.0 Ataxia, unspecified; Z91.81 History of falling; Z68.31 Body mass index [BMI] 31.0-31.9, adult; K52.9 Noninfective gastroenteritis and colitis, unspecified; Z79.01 Long term (current) use of anticoagulants; Z86.711 Personal history of pulmonary embolism; Z86.718 Personal history of other venous thrombosis and embolism; Y92.002 Bathroom of unspecified non-institutional (private) residence as the place of occurrence of the external cause; I69.319 Unspecified symptoms and signs involving cognitive functions following cerebral infarction; I69.392 Facial weakness following cerebral infarction
CPT/HCPCS: 36415; 70450; 71260; 72125; 74177; 80048; 80053; 82550; 83525; 83690; 83735; 84681; 85025; 85610; 85730; 87633; 93005; 96361; 96372; 96374; 97112; 97163; 97166; 97530; 97535; 99284; 99285; A9270; G0378; J1650; Q9967

== ENCOUNTER 2022-05-26 13:37 | Outpatient (CLI) | payer MEDICARE, OTHER | END 2022-05-26 13:38 | LOC: EMS 13:37 | PROVIDERS: ATTEND Family Medicine Sports Medicine | DX: I69.354 Hemiplegia and hemiparesis following cerebral infarction affecting left non-dominant side (principal); Z74.01 Bed confinement status | CPT/HCPCS: A0425; A0428 ==

== ENCOUNTER 2022-05-30 13:26 | Outpatient (CLI) | payer MEDICARE, OTHER ==
--- NOTE | 2022-05-30 14:23 | XRAY Report ---
PROCEDURE: Chest 2 View X-Ray INDICATIONS: R/O TB TECHNIQUE: 2 views of the chest were acquired. COMPARISON: CT chest 1123, x-ray chest 03/14/2022 FINDINGS: Surgical changes and devices: None. Lungs and pleura: There is an overall appearance of chronic interstitial changes. There is new blunt ing of the costophrenic angles bilaterally. Mediastinum: Mediastinal contours appear normal. Heart size is mildly prominent. Bones and chest wall: No suspicious bony lesions. Overlying soft tissues appear unremarkable. The re is inferior subluxation of the right humeral head from shoulder joint. IMPRESSION: Costophrenic angle blunting suggestive trace effusions. Reviewed by: Jazzy Tee MD on 05/30/2022 2:21 PM PDT Approved by: Jazzy Tee MD on 05/30/2022 2:21 PM PDT Station ID: [id number]
== END 2022-05-30 13:27 | disposition home or self-care (01) ==
LOC: DI 13:26
PROVIDERS: ATTEND Registered Nurse
DX: Z11.1 Encounter for screening for respiratory tuberculosis (principal)

== ENCOUNTER 2022-05-30 17:39 | Emergency (ER) | payer MEDICARE, OTHER ==
--- NOTE | 2022-05-30 17:51 | ED Physician Documentation ---
History of Present Illness - Stated complaint Stated Complaint: BROKEN SHOULDER - History obtained from History obtained from: Patient - Additonal information Additional information: 71-year-old woman on rivaroxaban fell a few days ago. She injured her shoulder. She points to the left shoulder as the site of the injury, she comes from a half-way. They are under the feeling that it is the right shoulder this injured. She persistently points at the left as the site of the injury. They note that she had an x-ray earlier today, this was reviewed. The indication was to rule out TB. The reading is read as inferior subluxation of the right humeral head. Patient is persistent that she did not hit her head and has no headache from the injury. PD PAST MEDICAL HISTORY - Past Medical History Cardiovascular: Congestive heart failure, Deep vein thrombosis, Other Respiratory: None Neuro: Dementia Endocrine/Autoimmune: Type 2 diabetes GI: None RECEIVER: None : None HEENT: None Psych: None Musculoskeletal: Hemiplegia Derm: None - Past Surgical History Past Surgical History: Yes General: Other Ortho: Arthroscopic surgery /RECEIVER: Hysterectomy Neuro: Craniotomy - Present Medications Home Medications: Ambulatory Orders Medication Instructions Recorded Confirmed Albuterol Sulf [Ventolin Hfa 1 - 2 puffs INH Q4HR PRN 03/14/22 05/22/22 Inhaler] Donepezil HCl [Aricept] 10 mg PO QPM 03/14/22 05/23/22 Isosorbide Mononitrate [Isosorbide 60 mg PO DAILY 03/14/22 05/22/22 Mononitrate ER] Potassium Chloride 20 meq PO DAILY 03/14/22 05/22/22 Rivaroxaban [Xarelto] 20 mg PO QDDINNER 03/14/22 05/23/22 Tiotropium [place] [Spiriva See Rx Instructions .ROUTE .COMPLEX 03/14/22 05/22/22 Respimat] minoxidiL [Minoxidil] 2.5 mg PO BID 03/14/22 05/22/22 Aspirin EC [Ecotrin] 81 mg PO DAILY #180 tablet 03/16/22 05/22/22 Atorvastatin [Lipitor] 40 mg PO QPM 05/22/22 05/22/22 Furosemide [Lasix] 1 tab PO BID 05/22/22 05/22/22 Acetaminophen [Tylenol] 650 mg PO Q4HR PRN tab 05/24/22 - Allergies Allergies/Adverse Reactions: Allergies Allergy/AdvReac Type Severity Reaction Status Date / Time aspirin Allergy Unknown Verified 05/21/22 10:52 cortisone Allergy Hives Verified 05/21/22 10:52 lisinopril Allergy Unknown Verified 05/21/22 10:52 - Social History Does the pt smoke?: No Smoking Status: Never smoker Does the pt drink ETOH?: No Does the pt have substance abuse?: No - Immunizations Immunizations are current?: No - POLST Patient has POLST: No PD ED PE NORMAL - Vitals Vital signs reviewed: Yes - General General: Alert and oriented X 3, No acute distress - Extremities Extremities: Other (She has difficulty with range of motion of the left shoulder but she says that is chronic from a prior brain injury. Neither shoulder is tender. Passive range of motion of both shoulders is painless.) - Neuro Neuro: Alert and oriented X 3, Normal speech Results - Vitals Vitals: Vital Signs - 24 hr 05/30/22 17:56 Temperature 37 C Heart Rate 79 Respiratory 18 Rate Blood Pressure 143/79 H O2 Saturation 95 Oxygen O2 Source Room air - Rads (name of study) Bilateral shoulder radiography Relevant Findings:: Final report received (Osteoarthritis, Enchondroma, no fractures.), EMP independent interpretation of test PD Medical Decision Making - ED course ED course: 71-year-old woman presents from a half-way for evaluation of her shoulders for potential injury after a fall noting of the chest x-ray done earlier today shows subluxation of the right humeral head. Out of an abundance of caution both shoulders were x-rayed without acute findings. Departure - Departure Disposition: 01 Home, Self Care Clinical Impression: Shoulder pain, bilateral Condition: Good Record reviewed to determine appropriate education?: Yes Comments: There is no fracture of the shoulder. The chest x-ray done earlier today showed inferior subluxation of the right humeral head which is a chronic phenomenon, not a fracture. Out of an abundance of caution we did x-ray both shoulders. No fracture.
--- OUTSIDE RECORDS SUMMARY | 2022-05-30 18:06 | EXTERNAL MEDICAL SUMMARY RPT | Continuity of Care Document ---
:1950 Author Organization [facility] Address [address] [place] [address] Phone Care Team Providers Name Role Phone Carlitos Forrest Unavailable Unavailable Allergies No information. Encounters No information. Functional Status No information. Immunizations No information. Medications date description facility 2022-03-07 00:00 Isosorbide Mononitrate [facility] 2022-03-11 00:00 [facility] Problems No information. Procedures No information. Results/Labs test date author facility value unit interpret ation Result panel 1 (unknown) (no (unknown) (unknown) (no value) (units (unk nown) date) unknown) (unknown) (no (unknown) (unknown) [id number] (units (unkn own) date) unknown) (unknown) (no (unknown) (unknown) 03/05/22 (units (unkno wn) date) unknown) (unknown) (no (unknown) (unknown) 71-year-old woman (units (unknown) date) with history of unknown) hypertension, hyperlipidemia, CHF, (unknown) (no (unknown) (unknown) Age/Sex: 71 / F Date (uni ts (unknown) date) of Service: unknown) (unknown) (no (unknown) (unknown) Allergies (units (unkn own) date) unknown) (unknown) (no (unknown) (unknown) [place] [address] (unit s (unknown) date) unknown) (unknown) (no [...] (unknown) (unknown) : 1950 (units (unknown) date) Acct:[id number] unknown) (unknown) (no (unknown) (unknown) Dept at [...] effort is made unknown) to edit content, retail helper errors Result panel 2 (unknown) (no (unknown) (unknown) (no value) (units (unk nown) date) unknown) (unknown) (no (unknown) (unknown) [id number] (units (unkn own) date) unknown) (unknown) (no (unknown) (unknown) 03/11/22 (units (unkno wn) date) unknown) (unknown) (no (unknown) (unknown) 71-year-old woman (units (unknown) date) with history of unknown) hypertension, hyperlipidemia, CHF, (unknown) (no (unknown) (unknown) Age/Sex: 71 / F Date (uni ts (unknown) date) of Service: unknown) (unknown) (no (unknown) (unknown) Allergies (units (unkn own) date) unknown) (unknown) (no (unknown) (unknown) [place], [place] [address] (unit s (unknown) date) unknown) (unknown) (no (unknown) (unknown) Attending Dr: Carlitos Jackson (uni ts (unknown) date) Lon D.O. unknown) (unknown) (no (unknown) (unknown) PADRON TREES [...] (unknown) (unknown) : 1950 (units (unknown) date) Acct:[id number] unknown) (unknown) (no (unknown) (unknown) Dept at [...] effort is made unknown) to edit content, retail helper errors (unknown) (no (unknown) (unknown) watch' that (units (un known) date) automatically tell unknown) Brigid where Alejandro is and sets off an alarm if (unknown) (no (unknown) (unknown) without ID, money, or (un its (unknown) date) a phone. 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: (unknown) (no (unknown) (unknown) [id number] (units (unkn own) date) unknown) (unknown) (no (unknown) (unknown) 03/11/22 (units (unkno wn) date) unknown) (unknown) (no (unknown) (unknown) 71-year-old woman (units (unknown) date) with history of unknown) hypertension, hyperlipidemia, CHF, (unknown) (no (unknown) (unknown) Age/Sex: 71 / F Date (uni ts (unknown) date) of Service: unknown) (unknown) (no (unknown) (unknown) Allergies (units (unkn own) date) unknown) (unknown) (no (unknown) (unknown) [place] [address] (unit s (unknown) date) unknown) (unknown) (no [...] (unknown) (unknown) : 1950 (units (unknown) date) Acct:[id number] unknown) (unknown) (no (unknown) (unknown) Dept at [...] date) Stephen, who has unknown) become her disability insurance claim examiner. 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 This neighbor moved the (unknown) (no (unknown) [...] effort is made unknown) to edit content, retail helper errors (unknown) (no (unknown) (unknown) speech normal [...] system with a 'smart care Result panel 5 (unknown) (no (unknown) (unknown) (no value) (units (unk nown) date) unknown) (unknown) (no (unknown) (unknown) [id number] (units (unkn own) date) unknown) (unknown) (no (unknown) (unknown) 03/12/22 (units (unkno wn) date) unknown) (unknown) (no (unknown) (unknown) 71-year-old woman (units (unknown) date) with history of unknown) hypertension, hyperlipidemia, CHF, (unknown) (no (unknown) (unknown) Age/Sex: 71 / F Date (uni ts (unknown) date) of Service: unknown) (unknown) (no (unknown) (unknown) Allergies (units (unkn own) date) unknown) (unknown) (no (unknown) (unknown) [place] [address] (unit s (unknown) date) unknown) (unknown) (no [...] (unknown) (unknown) : 1950 (units (unknown) date) Acct:[id number] unknown) (unknown) (no (unknown) (unknown) Dept at [...] effort is made unknown) to edit content, retail helper errors (unknown) (no (unknown) (unknown) watch' that (units (un known) date) automatically tell unknown) Brigid where Alejandro is and sets off an alarm if (unknown) (no (unknown) (unknown) without ID, money, or (un its (unknown) date) a phone. Brigid has set unknown ) up a system with a 'smart care Result panel 6 (unknown) (no (unknown) (unknown) (no value) (units (unk nown) date) unknown) (unknown) (no (unknown) (unknown) [id number] (units (unkn own) date) unknown) (unknown) (no [...] own) date) unknown) (unknown) (no (unknown) (unknown) [place] [address] (unit s (unknown) date) unknown) (unknown) (no [...] (unknown) (unknown) : 1950 (units (unknown) date) Acct:[id number] unknown) (unknown) (no (unknown) (unknown) Dept at [...] (uni ts (unknown) date) [facility]. A left-sided (unknown) (no (unknown) (unknown) presents with her (units (unknown) date) neighbor Brigid Shaw unknown ) for a telehealth visit may do follow-up (unknown) (no (unknown) (unknown) read the note (units ( unknown) date) carefully and unknown) recognize, using context, where these substitutions (unknown) (no (unknown) (unknown) software. Although (units (unknown) date) every effort is made unknown) to edit content, retail helper errors (unknown) (no (unknown) (unknown) therapy, occupational (un its (unknown) date) therapy, and other unknown) help at home. Result panel 7 (unknown) (no (unknown) (unknown) (no value) (units (unk nown) date) unknown) (unknown) (no (unknown) (unknown) [id number] (units (unkn own) date) unknown) (unknown) (no [...] unknown) (unknown) (no (unknown) (unknown) [place] [address] (unit s (unknown) date) unknown) (unknown) (no [...] (unknown) (unknown) : 1950 (units (unknown) date) Acct:[id number] unknown) (unknown) (no (unknown) (unknown) Dept at [...] the Medical Records (unknown) (no (unknown) (unknown) odilones (units (unkno wn) date) unknown) (unknown) (no [...] (uni ts (unknown) date) [facility]. A left-sided (unknown) (no (unknown) (unknown) presents with her (units (unknown) date) neighbor Brigid Shaw unknown ) for a telehealth visit may do follow-up (unknown) (no (unknown) (unknown) read the note (units ( unknown) date) carefully and unknown) recognize, using context, where these substitutions (unknown) (no (unknown) (unknown) software. Although (units (unknown) date) every effort is made unknown) to edit content, retail helper errors (unknown) (no (unknown) (unknown) therapy, occupational (un its (unknown) date) therapy, and other unknown) help at home. Social History date description facility 2022-03-11 00:00 Current some day [facility] Vital Signs No information.
--- NOTE | 2022-05-30 18:45 | XRAY Report ---
PROCEDURE: Shoulder 3 View BILAT INDICATIONS: shoulder inj TECHNIQUE: 6 views of the shoulder were acquired. COMPARISON: None. FINDINGS: Bones: No fractures or dislocations. Mild to moderate bilateral acromioclavicular joint and glenohum eral joint osteophytic changes are seen. Mixed lytic and sclerotic area within measuring space of rig ht proximal humeral shaft is seen most consistent with benign process such as enchondroma. Visualize d ribs appear intact. Soft tissues: No suspicious soft tissue calcifications. 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 No fracture or dislocation. Benign appearin g mixed lytic and sclerotic process in right proximal humeral shaft most likely represent enchondroma . Reviewed by: Jeff Duarte MD on 05/30/2022 6:44 PM PDT Approved by: Jeff Duarte MD on 05/30/2022 6:44 PM PDT Station ID: [id number]
[2022-05-30 19:27] VITALS: BP 153/75
== END 2022-05-30 19:59 | disposition home or self-care (01) ==
LOC: ED 17:39
DX: M25.512 Pain in left shoulder (principal); M25.511 Pain in right shoulder; F03.90 Unspecified dementia, unspecified severity, without behavioral disturbance, psychotic disturbance, mood disturbance, and anxiety; Z11.1 Encounter for screening for respiratory tuberculosis
CPT/HCPCS: 99283

== ENCOUNTER 2022-06-15 08:00 | Outpatient (CLI) | payer MEDICARE, OTHER ==
[2022-06-15 21:04] LABS: ESTIMATED AVERAGE GLUCOSE 117 mg/dL (70-100); HEMOGLOBIN A1c% 5.7 % (4.27-6.07)
== END 2022-06-15 23:59 | disposition home or self-care (01) ==
LOC: LAB.R 08:00
DX: E11.9 Type 2 diabetes mellitus without complications (principal)
CPT/HCPCS: 83036

== ENCOUNTER 2022-06-29 11:20 | Outpatient (CLI) | payer MEDICARE, OTHER | END 2022-06-29 11:21 | disposition critical access hospital (66) | LOC: EMS 11:20 | DX: H57.11 Ocular pain, right eye (principal); H53.8 Other visual disturbances; R60.0 Localized edema | CPT/HCPCS: A0425; A0429 ==

== ENCOUNTER 2022-06-29 11:29 | Emergency (ER) | payer MEDICARE, OTHER ==
[2022-06-29] MEDS ORDERED: PROPARACAINE 0.5% OPHTH DROPS 15 ML EACHEYE STA (11:50)
--- NOTE | 2022-06-29 12:00 | ED Physician Documentation ---
PD HPI OPHTHO - Stated complaint Stated Complaint: R EYE SWELLING - Chief complaint Chief Complaint: Heent - History obtained from History obtained from: Patient, EMS - History of Present Illness Timing - onset: How many days ago (2) Timing - duration: Days (2) Timing - details: Gradual onset Pain level max: 3 Pain level now: 3 Location: Right Quality / character: Burning Contributing factors: No: FB, Chemical exposure, acid, Chemical exposure, base, Blunt trauma, Penetrating trauma, Wears contacts - Additional information Additional information: Patient is a 71-year-old female who presents to the emergency department with a right eye swelling, redness and tearing for the past 2 days. She states feels similar to prior episodes of conjunctivitis. Does not wear contacts. Has not been placing anything in her eye. No fevers. No chills. No URI symptoms. Nothing makes it better or worse. No vision changes other than there is pain when she opens her eyes Review of Systems Constitutional: denies: Fever, Chills Nose: denies: Rhinorrhea / runny nose, Congestion Throat: denies: Sore throat Respiratory: denies: Cough Skin: denies: Rash Musculoskeletal: denies: Neck pain, Back pain Neurologic: denies: Headache PD PAST MEDICAL HISTORY - Past Medical History Cardiovascular: Congestive heart failure, Deep vein thrombosis, Other Respiratory: None Neuro: Dementia Endocrine/Autoimmune: Type 2 diabetes GI: None LAY OUT FORMER: None : None HEENT: None Psych: None Musculoskeletal: Hemiplegia Derm: None - Past Surgical History Past Surgical History: Yes General: Other Ortho: Arthroscopic surgery /LAY OUT FORMER: Hysterectomy Neuro: Craniotomy - Present Medications Home Medications: Ambulatory Orders Medication Instructions Recorded Confirmed Albuterol Sulf [Ventolin Hfa 1 - 2 puffs INH Q4HR PRN 03/14/22 05/22/22 Inhaler] Donepezil HCl [Aricept] 10 mg PO QPM 03/14/22 05/23/22 Isosorbide Mononitrate [Isosorbide 60 mg PO DAILY 03/14/22 05/22/22 Mononitrate ER] Potassium Chloride 20 meq PO DAILY 03/14/22 05/22/22 Rivaroxaban [Xarelto] 20 mg PO QDDINNER 03/14/22 05/23/22 Tiotropium [place] [Spiriva See Rx Instructions .ROUTE .COMPLEX 03/14/22 05/22/22 Respimat] minoxidiL [Minoxidil] 2.5 mg PO BID 03/14/22 05/22/22 Aspirin EC [Ecotrin] 81 mg PO DAILY #180 tablet 03/16/22 05/22/22 Atorvastatin [Lipitor] 40 mg PO QPM 05/22/22 05/22/22 Furosemide [Lasix] 1 tab PO BID 05/22/22 05/22/22 Acetaminophen [Tylenol] 650 mg PO Q4HR PRN tab 05/24/22 Polymyxin B/Trimeth Ophth Drop 1 drops RIGHTEYE Q3H 7 Days #1 each 06/29/22 [Polytrim Ophth Drops] - Allergies Allergies/Adverse Reactions: Allergies Allergy/AdvReac Type Severity Reaction Status Date / Time aspirin Allergy Unknown Verified 06/29/22 11:40 cortisone Allergy Hives Verified 06/29/22 11:40 lisinopril Allergy Unknown Verified 06/29/22 11:40 - Social History Does the pt smoke?: No Smoking Status: Never smoker Does the pt drink ETOH?: No Does the pt have substance abuse?: No - Immunizations Immunizations are current?: No - POLST Patient has POLST: No PD ED PE NORMAL - Vitals Vital signs reviewed: Yes - General General: Alert and oriented X 3, No acute distress, Well developed/nourished - HEENT HEENT: PERRL, EOMI, Moist mucous membranes, Pharynx benign, Other (Left eye is normal. Right eye shows injected conjunctiva with mild yellow drainage. No fluorescein uptake. Eyelids everted, no foreign bodies. No corneal ulcer.) - Neck Neck: Supple, no meningeal sign - Cardiac Cardiac: RRR - Respiratory Respiratory: No respiratory distress, Clear bilaterally - Derm Derm: Warm and dry - Neuro Neuro: Alert and oriented X 3 Results - Vitals Vitals: Vital Signs - 24 hr 06/29/22 11:34 Temperature 37.4 C Heart Rate 74 Respiratory 20 Rate Blood Pressure 132/81 H O2 Saturation 100 Oxygen O2 Source Room air PD Medical Decision Making - ED course Complexity details: considered differential, d/w patient ED course: 71-year-old female with right eye conjunctivitis. No evidence of corneal abrasion, corneal ulcer, foreign body. No evidence of trauma. Will place on Polytrim ophthalmic. Does not wear contacts. No significant pain with extraocular movements. No evidence of orbital or periorbital cellulitis. Patient counseled regarding signs and symptoms for which I believe and urgent re-evaluation would be necessary. Patient with good understanding of and agreement to plan and is comfortable going home at this time This document was made in part using voice recognition software. While efforts are made to proofread this document, sound alike and grammatical errors may occur. Departure - Departure Disposition: 01 Home, Self Care Clinical Impression: Bacterial conjunctivitis of right eye Condition: Good Instructions: ED Conjunctivitis Bacterial Follow-Up: your,doctor in 3 days for recheck [Other] Prescriptions: Polymyxin B/Trimeth Ophth Drop [Polytrim Ophth Drops] 1 drops RIGHTEYE Q3H 7 Days #1 each Comments: Your prescription was sent to [facility]. Please use the drops as prescribed. Please follow-up with your doctor in approximately 3 days for a recheck. Please return if you worsen.
[2022-06-29 14:30] VITALS: BP 112/73
== END 2022-06-29 14:28 | disposition home or self-care (01) ==
LOC: EDUNIT# → ED 11:29
DX: H10.89 Other conjunctivitis (principal)
CPT/HCPCS: 99283; J3490

== ENCOUNTER 2022-06-29 14:29 | Outpatient (CLI) | payer MEDICARE, OTHER | END 2022-06-29 14:30 | disposition home or self-care (01) | LOC: EMS 14:29 | PROVIDERS: ATTEND Emergency Medicine | DX: H10.9 Unspecified conjunctivitis (principal); R41.0 Disorientation, unspecified; F03.90 Unspecified dementia, unspecified severity, without behavioral disturbance, psychotic disturbance, mood disturbance, and anxiety | CPT/HCPCS: A0425; A0428 ==

== ENCOUNTER 2022-07-19 08:00 | Outpatient (CLI) | payer MEDICARE, OTHER ==
[2022-07-19 19:04] LABS: BILIRUBIN,URINE NEGATIVE (NEGATIVE); GLUCOSE, URINE (UA) NEGATIVE (NEGATIVE); KETONES,URINE (UA) NEGATIVE (NEGATIVE); LEUKOCYTE ESTERASE, URINE SMALL (NEGATIVE); NITRITE,URINE NEGATIVE (NEGATIVE); OCCULT BLOOD,URINE NEGATIVE (NEGATIVE); PH,URINE 5.5 PH (5.0-7.5); PROTEIN,URINE NEGATIVE (NEGATIVE); UROBILINOGEN,URINE 0.2 (NORMAL) E.U./dL (NORMAL)
[2022-07-19 19:28] LABS: AMORPHOUS SEDIMENT,UR Few /LPF; BACTERIA,URINE Few /HPF (None Seen); CLARITY,URINE HAZY (CLEAR); RBC,URINE 0-5 /HPF (0-5); SQUAMOUS EPITHELIAL CELL,UR MOD Squamous (<= Few)
== END 2022-07-19 23:59 | disposition home or self-care (01) ==
LOC: LAB.R 08:00
DX: N39.0 Urinary tract infection, site not specified (principal)
CPT/HCPCS: 81001; 87086

== ENCOUNTER 2022-08-24 08:00 | Outpatient (CLI) | payer OTHER ==
[2022-08-24 20:30] LABS: CREATININE 1.3 mg/dL (0.4-1.0); POTASSIUM 4.1 mmol/L (3.5-5.0)
== END 2022-08-24 23:59 | disposition home or self-care (01) ==
LOC: LAB.R 08:00
PROVIDERS: ATTEND Registered Nurse
DX: I50.9 Heart failure, unspecified (principal)
CPT/HCPCS: 80048

== ENCOUNTER 2022-09-26 06:46 | Outpatient (CLI) | payer MEDICARE, OTHER | END 2022-09-26 23:59 | disposition critical access hospital (66) | LOC: EMS 06:46 | DX: M79.18 Myalgia, other site (principal); M79.605 Pain in left leg; R20.0 Anesthesia of skin; W19.XXXA Unspecified fall, initial encounter; Y92.129 Unspecified place in nursing home as the place of occurrence of the external cause | CPT/HCPCS: A0425; A0429 ==

== ENCOUNTER 2022-09-26 06:55 | Emergency (ER) | payer MEDICARE, OTHER ==
[2022-09-26] MEDS ORDERED: LIDOCAINE PATCH 5% TOP STA (07:26)
--- NOTE | 2022-09-26 07:36 | ED Physician Documentation ---
History of Present Illness - Stated complaint Stated Complaint: GLF - Chief complaint Chief Complaint: Trauma Ch/Bk - History obtained from History obtained from: Patient - Additonal information Additional information: Patient is a 71-year-old female presenting for evaluation of left buttock pain radiating into her left leg since a fall yesterday afternoon. Patient lives at [facility] and states that she was sitting up on the edge of her bed when she fell down. She states that she cannot recall hitting her head but she does report having a slight headache right now. She is on Xarelto. She has a history of strokes. She states that she usually gets around with a walker or wheelchair. She reports that the fall happened sometime between lunch and dinner and that staff at [facility] wheeled her down to dinner in a wheelchair. Patient has not taken anything for pain. Patient denies saddle anesthesia, bowel or bladder incontinence. Review of Systems Constitutional: denies: Fever Cardiac: denies: Chest pain / pressure Respiratory: denies: Dyspnea GI: denies: Abdominal Pain Musculoskeletal: reports: Back pain Neurologic: reports: Headache PD PAST MEDICAL HISTORY - Past Medical History Past Medical History: Yes Cardiovascular: Congestive heart failure, Deep vein thrombosis, Other Respiratory: None Neuro: Dementia, CVA Endocrine/Autoimmune: Type 2 diabetes GI: None STATION EXAMINER: None : None HEENT: None Psych: None Musculoskeletal: Hemiplegia Derm: None - Past Surgical History Past Surgical History: Yes General: Other Ortho: Arthroscopic surgery /STATION EXAMINER: Hysterectomy Neuro: Craniotomy - Present Medications Home Medications: Ambulatory Orders Medication Instructions Recorded Confirmed Albuterol Sulf [Ventolin Hfa 1 - 2 puffs INH Q4HR PRN 03/14/22 09/26/22 Inhaler] Donepezil HCl [Aricept] 10 mg PO QPM 03/14/22 09/26/22 Isosorbide Mononitrate [Isosorbide 60 mg PO DAILY 03/14/22 09/26/22 Mononitrate ER] Potassium Chloride 20 meq PO DAILY 03/14/22 09/26/22 Rivaroxaban [Xarelto] 20 mg PO QDDINNER 03/14/22 09/26/22 Tiotropium [place] [Spiriva See Rx Instructions .ROUTE .COMPLEX 03/14/22 09/26/22 Respimat] minoxidiL [Minoxidil] 2.5 mg PO BID 03/14/22 09/26/22 Aspirin EC [Ecotrin] 81 mg PO DAILY #180 tablet 03/16/22 09/26/22 Atorvastatin [Lipitor] 40 mg PO QPM 05/22/22 09/26/22 Furosemide [Lasix] 1 tab PO BID 05/22/22 09/26/22 Acetaminophen [Tylenol] 650 mg PO Q4HR PRN tab 05/24/22 09/26/22 Losartan Potassium 25 mg PO DAILY 06/29/22 09/26/22 Senna [Senokot] 17.2 mg PO DAILY PRN 06/29/22 09/26/22 Lidocaine Patch 5% [Lidoderm Patch] 1 patch TOP DAILY PRN #10 patch 09/26/22 - Allergies Allergies/Adverse Reactions: Allergies Allergy/AdvReac Type Severity Reaction Status Date / Time aspirin Allergy Unknown Verified 09/26/22 07:04 cortisone Allergy Hives Verified 09/26/22 07:04 lisinopril Allergy Unknown Verified 09/26/22 07:04 - Social History Does the pt smoke?: No Smoking Status: Never smoker Does the pt drink ETOH?: No Does the pt have substance abuse?: No - Immunizations Immunizations are current?: No - POLST Patient has POLST: No PD ED PE NORMAL - General General: Alert and oriented X 3, No acute distress, Well developed/nourished - HEENT HEENT: Atraumatic, Moist mucous membranes, Pharynx benign - Neck Neck: Supple, no meningeal sign, Other (Mild low cervical tenderness to palpation, left paracervical tenderness to palpation). No: C-Spine cleared by NEXUS criteria - Cardiac Cardiac: RRR, No murmur - Respiratory Respiratory: No respiratory distress, Clear bilaterally - Abdomen Abdomen: Soft, Non tender, Non distended - Back Back: No spinal TTP, Other (Low lumbar tenderness to palpation with no step- offs, no deformities,) - Derm Derm: Warm and dry - Extremities Extremities: No deformity, Other ( reports mild discomfort on range of motion of left hip but allows for full range of motion;No leg shortening. Normal strength in bilateral hip flexion, knee extension and flexion, ankle dorsiflexion and plantarflexion. Symmetric patellar and ankle jerk reflexes) - Neuro Neuro: Alert and oriented X 3, No motor deficit, No sensory deficit, Normal speech Eye Opening: Spontaneous Motor: Obeys Commands Verbal: Oriented GCS Score: 15 Results - Vitals Vitals: Vital Signs - 24 hr 09/26/22 09/26/22 09/26/22 06:54 07:15 09:14 Temperature 36.8 C Heart Rate 87 73 72 Respiratory 16 20 15 Rate Blood Pressure 169/89 H 158/78 H 205/105 H O2 Saturation 100 99 96 09/26/22 10:18 Temperature Heart Rate 73 Respiratory 13 Rate Blood Pressure 156/89 H O2 Saturation 96 Oxygen O2 Source Room air - Labs Labs: Laboratory Tests 09/26/22 09/26/22 09/26/22 08:32 08:32 08:32 WBC 7.3 RBC 4.61 Hgb 12.9 Hct 40.4 MCV 87.6 MCH 28.0 MCHC 31.9 L RDW 13.1 Plt Count 236 MPV 9.8 Neut # (Auto) 5.1 Lymph # (Auto) 1.3 L [place] # (Auto) 0.5 Eos # (Auto) 0.3 Baso # (Auto) 0.0 Absolute Nucleated RBC 0.00 Nucleated RBC % 0.0 PT 12.4 INR 1.1 Sodium 141 Potassium 4.1 Chloride 107 Carbon Dioxide 26 Anion Gap 8.0 BUN 28 H Creatinine 1.1 H Estimated GFR (MDRD) 49 L Glucose 96 Calcium 9.0 PD Medical Decision Making - ED course Complexity details: reviewed results, re-evaluated patient, d/w patient ED course: Patient is a 71-year-old female with a history of dementia and prior strokes on Xarelto presenting for evaluation of low back pain radiating to the left buttock since yesterday after a fall. Patient reports she fell getting out of her bed. She does not recall head injury but does report a slight headache today. No focal deficits or signs of head injury noted on exam. She is ambulatory here multiple times to the bathroom. Labs obtained including CBC, chemistries and INR without significant findings. Patient's creatinine is 1.1 when she is similar to prior labs.X-ray pelvis and left hip, CT head, cervical spine and lumbar spine were obtained and reviewed and without signs of fracture. No signs of intracranial hemorrhage. Again her story does not suggest a CVA. She appears to be at her baseline here and does not appear septic. No signs of cauda equina . Patient counseled on continued supportive care as well as need for follow-up with PCP. Departure - Departure Disposition: 01 Home, Self Care Clinical Impression: Low back sprain, Fall from bed, initial encounter Condition: Stable Instructions: ED Sprain Strain Lumbar Prescriptions: Lidocaine Patch 5% [Lidoderm Patch] 1 patch TOP DAILY PRN #10 patch PRN Reason: pain Comments: Your CT scans do not show any broken bones from your fall. You do have diverticulosis in your colon and the radiologist recommends getting a colonoscopy when you are due for one. Continue with lidocaine patches and anti- inflammatories such as acetaminophen. I would recommend close follow-up with your primary care provider. If you develop any worsening symptoms such as weakness in your legs, increased pain or have any new concerns please return to the emergency department. Forms: PCP List Discharge Date/Time: 09/26/22 10:26
--- NOTE | 2022-09-26 08:26 | XRAY Report ---
PROCEDURE: Hip w/Pelvis 2-3V LT INDICATIONS: fall/pain TECHNIQUE: AP pelvis with lateral view(s) of the left hip(s). COMPARISON: None. FINDINGS: Bones: No fractures or dislocations. No suspicious bony lesions. Degenerative changes of the hips w ith severe joint space narrowing medially. Superior joint space appears preserved. Overlapping soft t issues limits evaluation of the osseous structures on the crosstable lateral. Soft tissues: No suspicious soft tissue calcifications or masses. Surgical clips project over the left upper abdomen. Atherosclerotic vascular calcifications. IMPRESSION: No acute fracture or dislocation. Reviewed by: Mj Vickers MD on 09/26/2022 8:24 AM PDT Approved by: Mj Vickers MD on 09/26/2022 8:24 AM PDT Station ID: [id number]
[2022-09-26 08:38] LABS: BASOPHILS % (AUTO) 0.6 %; EOSINOPHILS # (AUTO) 0.3 10^3/uL (0.0-0.7); EOSINOPHILS % (AUTO) 3.4 %; HCT - HEMATOCRIT 40.4 % (37.0-47.0); HGB - HEMOGLOBIN 12.9 g/dL (12.0-16.0); LYMPHOCYTES # (AUTO) 1.3 10^3/uL (1.5-3.5); LYMPHOCYTES % (AUTO) 18.4 %; MEAN CORPUSCULAR HGB CONC 31.9 g/dL (32.0-36.0); MEAN CORPUSCULAR VOLUME 87.6 fL (81.0-99.0); MEAN PLATELET VOLUME 9.8 fL (7.9-10.8); MONOCYTES # (AUTO) 0.5 10^3/uL (0.0-1.0); MONOCYTES % (AUTO) 7.3 %; NEUTROPHILS # (AUTO) 5.1 10^3/uL (1.5-6.6); NEUTROPHILS % (AUTO) 70.2 %; PLT - PLATELET COUNT 236 10^3/uL (130-450); RED BLOOD COUNT 4.61 10^6/uL (4.20-5.40); RED CELL DISTRIBUTION WIDTH 13.1 % (12.0-15.0); WHITE BLOOD COUNT 7.3 x10^3/uL (4.8-10.8)
[2022-09-26 08:44] LABS: INR 1.1 (0.8-1.2); PT - PROTHROMBIN TIME 12.4 secs (9.9-12.6)
[2022-09-26 08:49] LABS: CREATININE 1.1 mg/dL (0.4-1.0); POTASSIUM 4.1 mmol/L (3.5-5.0)
[2022-09-26 09:26] VITALS: O2SAT 96
[2022-09-26] MEDS ORDERED: ACETAMINOPHEN 500 MG TABLET PO STA (09:47)
--- NOTE | 2022-09-26 09:48 | CT Report ---
PROCEDURE: LUMBAR SPINE WO INDICATIONS: fall on xarelto; pain into L leg TECHNIQUE: Noncontrast 3 mm thick sections acquired from the T12 level to the sacrum. Sagittal and coronal refo rmats were constructed. For radiation dose reduction, the following was used: automated exposure co ntrol, adjustment of mA and/or kV according to patient size. COMPARISON: CT abdomen pelvis 05/21/2022 FINDINGS: Image quality: Excellent. Bones: Decreased osseous mineralization. Levocurvature of the lumbar spine. Minimal anterolisthesis of L3 on L4 and L4 on L5. Multilevel degenerative changes with facet arthropathy, anterior osteophyto sis and disc height loss. Likely moderate central canal stenosis at L3-L4 secondary to disc bulge and thickening of ligamentum flavum. No acute vertebral body compression fracture. No suspicious lytic o r blastic bony lesions. No pars defects. Soft tissues: No retroperitoneal masses or hematomas. Visualized aorta is normal in caliber. Right basilar atelectasis versus consolidation. Trace pericardial effusion. Atherosclerotic vascular calci fications. IVC filter in place. Gallstones are present. Diverticulosis. Wall thickening and surroundi ng inflammatory changes adjacent to sigmoid colon IMPRESSION: 1.No acute fractures or traumatic listhesis of the lumbar spine. 2.Multilevel degenerative changes as described above. 3.Sigmoid colon extensive diverticulosis with wall thickening and surrounding inflammatory changes, m ay represent chronic diverticular disease as this is similar compared to 05/21/2022. Recommend correla tion with symptoms for acute diverticulitis. Consider correlation with age-appropriate colonoscopy. 4.Right basilar atelectasis versus consolidation. Reviewed by: Mj Vickers MD on 09/26/2022 9:47 AM PDT Approved by: Mj Vickers MD on 09/26/2022 9:47 AM PDT Station ID: [id number]
--- NOTE | 2022-09-26 09:51 | CT Report ---
PROCEDURE: CERVICAL SPINE WO INDICATIONS: fall/pain TECHNIQUE: Noncontrast 3 mm thick sections acquired from the skull base to the T4 level. Sagittal and coronal r eformats were then constructed. For radiation dose reduction, the following was used: automated exp osure control, adjustment of mA and/or kV according to patient size. COMPARISON: CT cervical spine 05/21/2022 FINDINGS: Image quality: Excellent. Bones: No fractures or dislocations. Visualized superior ribs are intact. Degenerative changes of the cervical spine, most pronounced at C5-C6, similar to prior. Soft tissues: Prevertebral soft tissues are normal in thickness. No paravertebral hematomas. No ap ical pneumothoraces. Atherosclerotic vascular calcifications. IMPRESSION: No acute fracture or traumatic listhesis of the cervical spine. Reviewed by: Mj Vickers MD on 09/26/2022 9:49 AM PDT Approved by: Mj Vickers MD on 09/26/2022 9:49 AM PDT Station ID: [id number]
--- NOTE | 2022-09-26 09:56 | CT Report ---
PROCEDURE: HEAD WO INDICATIONS: fall on xarelto TECHNIQUE: Noncontrast 4.5 mm thick angled axial sections acquired from the foramen magnum to the vertex. For r adiation dose reduction, the following was used: automated exposure control, adjustment of mA and/or kV according to patient size. COMPARISON: CT head 05/21/2022 FINDINGS: Image quality: Excellent. CSF spaces: Basal cisterns are patent. No extra-axial fluid collections. Mild ex vacuo dilatation o f the right lateral ventricle.. Brain: No midline shift. No intracranial masses or hemorrhage. New hypoattenuation within the midli ne right frontal lobe. Hypoattenuation asymmetrically along the frontal lobes and adjacent to the occ ipital horns is similar compared to prior likely secondary to prior infarct or other insult. Skull and face: Calvarium and visualized facial bones are intact, without suspicious lesions. Sinuses: Ethmoid air cell and left frontal sinus mucosal disease. The mastoids are clear. IMPRESSION: 1.There is new hypoattenuation within the midline right frontal lobe when compared to 05/21/2022, wood speedy there is mild ex vacuo dilatation of the adjacent right lateral ventricle, suggesting against an acute etiology. Acute infarct is not definitively excluded and MRI can be obtained for further evalua tion if clinically indicated. 2.No acute intracranial hemorrhage. Reviewed by: Mj Vickers MD on 09/26/2022 9:55 AM PDT Approved by: Mj Vickers MD on 09/26/2022 9:55 AM PDT Station ID: [id number]
[2022-09-26 10:20] VITALS: BP 156/89
== END 2022-09-26 10:26 | disposition home or self-care (01) ==
LOC: ED 06:55
DX: S33.5XXA Sprain of ligaments of lumbar spine, initial encounter (principal); W06.XXXA Fall from bed, initial encounter; Y93.89 Activity, other specified; Y92.193 Bedroom in other specified residential institution as the place of occurrence of the external cause; K57.30 Diverticulosis of large intestine without perforation or abscess without bleeding
CPT/HCPCS: 36415; 70450; 72125; 72131; 73502; 80048; 85025; 85610; 99284; A9270

== ENCOUNTER 2022-10-01 08:00 | Outpatient (CLI) | payer MEDICARE, OTHER ==
[2022-10-01 21:49] LABS: ESTIMATED AVERAGE GLUCOSE 105 mg/dL (70-100); HEMOGLOBIN A1c% 5.3 % (4.27-6.07)
== END 2022-10-01 23:59 | disposition home or self-care (01) ==
LOC: LAB.R 08:00
PROVIDERS: ATTEND Registered Nurse
DX: E11.9 Type 2 diabetes mellitus without complications (principal)
CPT/HCPCS: 83036

== ENCOUNTER 2022-11-12 09:23 | Emergency (ER) | payer MEDICARE, OTHER ==
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
[2022-11-12 10:25] LABS: BASOPHILS % (AUTO) 0.6 %; EOSINOPHILS # (AUTO) 0.2 10^3/uL (0.0-0.7); EOSINOPHILS % (AUTO) 2.8 %; HCT - HEMATOCRIT 47.2 % (37.0-47.0); HGB - HEMOGLOBIN 14.4 g/dL (12.0-16.0); LYMPHOCYTES # (AUTO) 1.5 10^3/uL (1.5-3.5); LYMPHOCYTES % (AUTO) 20.2 %; MEAN CORPUSCULAR HEMOGLOBIN 27.4 pg (27.0-31.0); MEAN CORPUSCULAR HGB CONC 30.5 g/dL (32.0-36.0); MEAN CORPUSCULAR VOLUME 89.9 fL (81.0-99.0); MEAN PLATELET VOLUME 10.9 fL (7.9-10.8); MONOCYTES # (AUTO) 0.5 10^3/uL (0.0-1.0); MONOCYTES % (AUTO) 6.6 %; NEUTROPHILS % (AUTO) 69.5 %; PLT - PLATELET COUNT 163 10^3/uL (130-450); RED BLOOD COUNT 5.25 10^6/uL (4.20-5.40); RED CELL DISTRIBUTION WIDTH 13.5 % (12.0-15.0); WHITE BLOOD COUNT 7.2 x10^3/uL (4.8-10.8)
[2022-11-12] MEDS: PROPARACAINE 0.5% OPHTH DROPS 15 ML EACHEYE STA (10:40)
[2022-11-12 11:53] LABS: ALBUMIN/GLOBULIN RATIO 1.2 (1.0-2.2); BILIRUBIN,TOTAL 0.5 mg/dL (0.2-1.0); CALCIUM 9.9 mg/dL (8.5-10.3); CREATININE 1.2 mg/dL (0.6-1.3); POTASSIUM 4.3 mmol/L (3.5-4.5); TOTAL PROTEIN 7.4 g/dL (6.4-8.9)
[2022-11-12] MEDS: NEOMYCIN/POLYMYX/DEXAMETH OPHTH DROPS 5 ML RIGHTEYE STA (14:28)
--- NOTE | 2022-11-12 14:50 | CT Report ---
PROCEDURE: ORBITS W INDICATIONS: right eye pain and drainage CONTRAST: 80 mL of Omnipaque 300 TECHNIQUE: After the administration of intravenous contrast, 2.0 mm axial images acquired through the orbits, wi th coronal reformatting. For radiation dose reduction, the following was used: automated exposure c ontrol, adjustment of mA and/or kV according to patient size. COMPARISON: CT head dated 09/26/2022 FINDINGS: Image quality: Excellent. Orbits: Globes are symmetrical. The optic nerves are normal in size and enhancement. No retrobulba r masses or fat abnormalities. The extra-ocular muscles are normal and symmetrical in appearance. L acrimal glands are normal. Optic chiasm is normal. Periorbital soft tissues are normal. Intracranial: The pituitary gland is unremarkable, without sellar or suprasellar masses. Visualized cerebral hemispheres, brainstem, and spinal cord appear normal. Bones and sinuses: Visualized calvarium and facial bones appear intact. Moderate scattered ethmoid s inus mucosal thickening. Scattered mucosal thickening of the bilateral frontal sinuses more prominent on the left. Small focal mucosal thickening versus polyp of the left maxillary sinus. Bilateral mast oid air cells are clear. IMPRESSION: Frontal, ethmoid, and left maxillary sinus disease. Otherwise, unremarkable CT evaluation of the orbi ts. Normal appearance of the orbits and globes. No evidence suggest post septal cellulitis. Reviewed by: Martell Multani MD on 11/12/2022 2:49 PM PDT Approved by: Martell Multani MD on 11/12/2022 2:49 PM PDT Station ID: [id number]
[2022-11-12] MEDS: AMOXICILLIN 250 MG CAPSULE PO STA (15:37)
[2022-11-12 16:29] VITALS: BP 159/79; O2SAT 96
[2022-11-12] MEDS: iohexoL-300 100 ML VIAL IVP ONE (18:27)
== END 2022-11-12 16:25 | disposition home or self-care (01) ==
LOC: ED 09:23
DX: H10.9 Unspecified conjunctivitis (principal); H20.00 Unspecified acute and subacute iridocyclitis; J32.9 Chronic sinusitis, unspecified; I50.9 Heart failure, unspecified; F03.90 Unspecified dementia, unspecified severity, without behavioral disturbance, psychotic disturbance, mood disturbance, and anxiety; E11.9 Type 2 diabetes mellitus without complications; I69.359 Hemiplegia and hemiparesis following cerebral infarction affecting unspecified side; Z79.899 Other long term (current) drug therapy; Z79.82 Long term (current) use of aspirin; Z79.01 Long term (current) use of anticoagulants
CPT/HCPCS: 36415; 80053; 83690; 85025; 87070; 99284

== ENCOUNTER 2022-11-12 16:27 | Outpatient (CLI) | payer MEDICARE, OTHER | END 2022-11-12 16:28 | disposition home or self-care (01) | LOC: EMS 16:27 | PROVIDERS: ATTEND Emergency Medicine | DX: R41.0 Disorientation, unspecified (principal); H57.10 Ocular pain, unspecified eye | CPT/HCPCS: A0425; A0428 ==

== ENCOUNTER 2022-12-14 10:21 | Outpatient (CLI) | payer MEDICARE, OTHER | END 2022-12-14 10:22 | disposition critical access hospital (66) | LOC: EMS 10:21 | DX: R53.1 Weakness (principal) | CPT/HCPCS: A0425; A0429 ==

== ENCOUNTER 2022-12-14 10:26 | Emergency (ER) | payer MEDICARE, OTHER ==
[2022-12-14] MEDS ORDERED: LORazepam 2 MG/ML VIAL IVP STA (10:53)
[2022-12-14] MEDS ORDERED: SODIUM CHLORIDE 0.9% 1,000 ML IV STA (10:53)
--- NOTE | 2022-12-14 10:54 | ED Physician Documentation ---
PD HPI ALTERED MENTAL STATUS - Stated complaint Stated Complaint: L SIDE WEAKNESS - Chief complaint Chief Complaint: General - History obtained from History obtained from: Patient, EMS, Caregiver - History of Present Illness Timing - onset: How many days ago (1 to 2 days of increased restlessness and agitation. She has been wanting to walk the hallways more. She perceives some slight increased weakness of the left arm and leg compared to baseline. She states that she started a new medicine 3 days ago. Her MAR is November medication, not Nov.) Timing - duration: Days Timing - details: Gradual onset, Still present Quality / character: Confused, Agitated (walking hallways more and not wanting to sleep.) Contributing factors: Recent med change (the pt states started new med for leg pains 3 days ago. Review of recent scripts shows Gabapentin 300 mg, starting once daily and to increase to 2 daily I presume (Rx was for 35 tabs for 21 days). Pt change in mentation onset with starting the med.) Basline status: Ambulatory, Disoriented, residential facility Recently seen: Clinic (seen by PCP and had Gabapentin started for leg pain at 300 mg nightly initially. 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: None : None HEENT: None Psych: None Musculoskeletal: Hemiplegia Derm: None - Past Surgical History Past Surgical History: Yes General: Other Ortho: Arthroscopic surgery /INDUSTRIAL SAFETY ENGINEER: Hysterectomy Neuro: Craniotomy - Present Medications Home Medications: Ambulatory Orders Medication Instructions Recorded Confirmed Albuterol Sulf [Ventolin Hfa 1 - 2 puffs INH Q4HR PRN 03/14/22 11/12/22 Inhaler] Donepezil HCl [Aricept] 10 mg PO QPM 03/14/22 11/12/22 Isosorbide Mononitrate [Isosorbide 60 mg PO DAILY 03/14/22 11/12/22 Mononitrate ER] Potassium Chloride 20 meq PO DAILY 03/14/22 11/12/22 Rivaroxaban [Xarelto] 20 mg PO QDDINNER 03/14/22 11/12/22 Tiotropium [place] [Spiriva See Rx Instructions .ROUTE .COMPLEX 03/14/22 09/26/22 Respimat] minoxidiL [Minoxidil] 2.5 mg PO BID 03/14/22 11/12/22 Aspirin EC [Ecotrin] 81 mg PO DAILY #180 tablet 03/16/22 11/12/22 Atorvastatin [Lipitor] 40 mg PO QPM 05/22/22 11/12/22 Furosemide [Lasix] 20 mg PO BID 05/22/22 11/12/22 Acetaminophen [Tylenol] 650 mg PO Q4HR PRN tab 05/24/22 11/12/22 Losartan Potassium 25 mg PO DAILY 06/29/22 11/12/22 Senna [Senokot] 17.2 mg PO DAILY PRN 06/29/22 11/12/22 Lidocaine Patch 5% [Lidoderm Patch] 1 patch TOP DAILY PRN #10 patch 09/26/22 11/12/22 Amoxicillin 500 mg PO TID #15 cap 11/12/22 Bisacodyl Supp [Dulcolax Supp] 10 mg [place] DAILY PRN 11/12/22 11/12/22 Melatonin 3 mg PO HS 11/12/22 11/12/22 Mineral Oil [Mineral Oil Enema] 1 ea RC PRN PRN 11/12/22 11/12/22 Neomycin/Poly/Dex Ophth Drops 3 drops EACHEYE QID 7 Days #5 ml 11/12/22 [Maxitrol Ophth Drops] Polymyxin B/Trimeth Ophth Drop 2 drops EACHEYE QID 11/12/22 11/12/22 [Polytrim Ophth Drops] Sertraline [Zoloft] 25 mg PO DAILY 11/12/22 11/12/22 polyethylene glycoL 3350 [Miralax] 17 gm PO DAILY PRN 11/12/22 11/12/22 - Allergies Allergies/Adverse Reactions: Allergies Allergy/AdvReac Type Severity Reaction Status Date / Time aspirin Allergy Unknown Verified 12/14/22 10:40 cortisone Allergy Hives Verified 12/14/22 10:40 lisinopril Allergy Unknown Verified 12/14/22 10:40 - Social History Does the pt smoke?: No Smoking Status: Never smoker Does the pt drink ETOH?: No Does the pt have substance abuse?: No - Immunizations Immunizations are current?: No - POLST Patient has POLST: No PD ED PE NORMAL - Vitals Vital signs reviewed: Yes - General General: Alert and oriented X 3, No acute distress, Well developed/nourished - HEENT HEENT: Atraumatic - Neck Neck: Supple, no meningeal sign, No adenopathy - Cardiac Cardiac: RRR, No murmur - Respiratory Respiratory: Clear bilaterally - Abdomen Abdomen: Soft, Non tender - Derm Derm: Normal color, Warm and dry - Extremities Extremities: No edema, No calf tenderness / cord - Neuro Neuro: Alert and oriented X 3, No motor deficit, Normal speech Results - Vitals Vitals: Vital Signs - 24 hr 12/14/22 12/14/22 12/14/22 10:37 12:39 13:45 Temperature 36.1 C L 36.6 C Heart Rate 62 55 L 60 Respiratory 15 15 15 Rate Blood Pressure 134/71 H 122/79 122/79 O2 Saturation 99 97 98 Oxygen O2 Source Room air - Labs Labs: Laboratory Tests 12/14/22 12/14/22 11:05 11:05 WBC 6.1 RBC 4.36 Hgb 12.1 Hct 37.7 MCV 86.5 MCH 27.8 MCHC 32.1 RDW 13.9 Plt Count 170 MPV 10.9 H Neut # (Auto) 4.4 Lymph # (Auto) 1.0 L [place] # (Auto) 0.5 Eos # (Auto) 0.2 Baso # (Auto) 0.0 Absolute Nucleated RBC 0.00 Nucleated RBC % 0.0 Sodium 140 Potassium 4.4 Chloride 107 Carbon Dioxide 28 Anion Gap 5.0 L BUN 26 H Creatinine 1.3 Estimated GFR (MDRD) 40 L Glucose 86 Calcium 9.1 Magnesium 1.9 Total Bilirubin 0.5 AST 19 ALT 11 Alkaline Phosphatase 54 Total Protein 6.9 Albumin 3.8 Globulin 3.1 Albumin/Globulin Ratio 1.2 Lipase 67 TSH 2.73 - Rads (name of study) chest xray Relevant Findings:: Prelim report reviewed (no acute changes. ), EMP independent interpretation of test head CT Relevant Findings:: Prelim report reviewed (old changes noted. no acute process. ), EMP independent interpretation of test PD Medical Decision Making - ED course Complexity details: reviewed old records (Pt's MAR from [facility] for Nov was sent with her and not the current Nov meds. We called to them to send current meds and they said it was not available (had to be signed by PCP). I found pt Rx in pharmacy review section.), reviewed results (head CT without acute changes. CXR without infiltrates. Labs showing normal lytes particularly Na. No notable abnormalities. ), considered differential (having some increased confusion and restless behavior per caregivers. Pt states she feels okay. Can check labs and med list. No focal changes and no headache, head injury. has had prior brain surgery. Can get CT. Look for infections too - CXR, labs. ), d/w patient ED course: Labs and imiagin are okay. Timing of mentation changes coincides with new gabapentin med, so presume is that. Suggest holding it 2 days and then likely her PCP might resume at lower dose, such as 100 mg, since the patient does state her leg pains are improved since started med. Departure - Departure Disposition: 01 Home, Self Care Clinical Impression: Confusion, Medication side effect Condition: Stable Record reviewed to determine appropriate education?: Yes Comments: We checked blood tests as well as a CT scan of the head to look for signs of other acute abnormalities. No acute changes in your head CT. Your blood test did not show any notable abnormalities. Your symptoms seem new with the medication started 3 days ago that could cause these types of side effects. At this point I would attribute your symptoms of some increased confusion etc. to the new gabapentin. Hold the gabapentin over the next couple of days. Discussed with your primary care on Friday either fully discontinuing it or more likely starting at a lower dose such as 100 mg at night initially. Stay well-hydrated. Continue your other usual medicines. Return as needed. Forms: PCP List Discharge Date/Time: 12/14/22 14:05
[2022-12-14 11:11] LABS: BASOPHILS % (AUTO) 0.7 %; EOSINOPHILS # (AUTO) 0.2 10^3/uL (0.0-0.7); EOSINOPHILS % (AUTO) 3.1 %; HCT - HEMATOCRIT 37.7 % (37.0-47.0); HGB - HEMOGLOBIN 12.1 g/dL (12.0-16.0); LYMPHOCYTES % (AUTO) 16.4 %; MEAN CORPUSCULAR HEMOGLOBIN 27.8 pg (27.0-31.0); MEAN CORPUSCULAR HGB CONC 32.1 g/dL (32.0-36.0); MEAN CORPUSCULAR VOLUME 86.5 fL (81.0-99.0); MEAN PLATELET VOLUME 10.9 fL (7.9-10.8); MONOCYTES # (AUTO) 0.5 10^3/uL (0.0-1.0); MONOCYTES % (AUTO) 7.5 %; NEUTROPHILS # (AUTO) 4.4 10^3/uL (1.5-6.6); PLT - PLATELET COUNT 170 10^3/uL (130-450); RED BLOOD COUNT 4.36 10^6/uL (4.20-5.40); RED CELL DISTRIBUTION WIDTH 13.9 % (12.0-15.0); WHITE BLOOD COUNT 6.1 x10^3/uL (4.8-10.8)
[2022-12-14 11:25] LABS: ALBUMIN 3.8 g/dL (3.2-5.5); MAGNESIUM 1.9 mg/dL (1.7-2.3)
[2022-12-14 11:26] LABS: POTASSIUM 4.4 mmol/L (3.5-4.5)
--- NOTE | 2022-12-14 11:30 | XRAY Report ---
PROCEDURE: Chest 1 View X-Ray INDICATIONS: cough TECHNIQUE: One view of the chest was acquired. COMPARISON: None. FINDINGS: Surgical changes and devices: None. Lungs and pleura: No pleural effusions or pneumothorax. Lungs are clear. Mediastinum: Mediastinal contours appear normal. Heart size is normal. Bones and chest wall: No suspicious bony lesions. Overlying soft tissues appear unremarkable. IMPRESSION: No acute process. Reviewed by: Demian Morales MD on 12/14/2022 11:29 AM PDT Approved by: Demian Morales MD on 12/14/2022 11:29 AM PDT Station ID: [id number]
[2022-12-14 11:33] LABS: ALBUMIN/GLOBULIN RATIO 1.2 (1.0-2.2); BILIRUBIN,TOTAL 0.5 mg/dL (0.2-1.0); CALCIUM 9.1 mg/dL (8.5-10.3); CREATININE 1.3 mg/dL (0.6-1.3); TOTAL PROTEIN 6.9 g/dL (6.4-8.9)
[2022-12-14 11:39] LABS: THYROID STIMULATING HORMONE 2.73 uIU/mL (0.34-5.60)
--- NOTE | 2022-12-14 13:00 | CT Report ---
PROCEDURE: HEAD WO INDICATIONS: increased weakness TECHNIQUE: Noncontrast 4.5 mm thick angled axial sections acquired from the foramen magnum to the vertex. For r adiation dose reduction, the following was used: automated exposure control, adjustment of mA and/or kV according to patient size. COMPARISON: None. FINDINGS: Image quality: Excellent. CSF spaces: Basal cisterns are patent. No extra-axial fluid collections. Ventricles are normal in size and shape. Brain: No midline shift. No intracranial masses or hemorrhage. Mild diffuse cerebral volume loss. Moderate degree of patchy low density within the periventricular and subcortical white matter. No maeve nge in chronic bilateral cerebral infarcts. Green-white matter interface is normal. Skull and face: Calvarium and visualized facial bones are intact, without suspicious lesions. Sinuses: Moderate because of thickening in the bilateral ethmoid air cells as well as the left fronta l sinus. Mastoids are clear.. IMPRESSION: 1. Volume loss and small vessel ischemic disease. 2. Chronic bilateral cerebral infarcts. 3. No acute intracranial abnormality. Reviewed by: Demian Morales MD on 12/14/2022 12:59 PM PDT Approved by: Demian Morales MD on 12/14/2022 12:59 PM PDT Station ID: [id number]
[2022-12-14 13:38] VITALS: BP 122/79
[2022-12-14 14:39] VITALS: O2SAT 98
== END 2022-12-14 14:05 | disposition home or self-care (01) ==
LOC: EDUNIT# → ED 10:26
DX: R41.0 Disorientation, unspecified (principal); T42.6X5A Adverse effect of other antiepileptic and sedative-hypnotic drugs, initial encounter; I50.9 Heart failure, unspecified; F03.90 Unspecified dementia, unspecified severity, without behavioral disturbance, psychotic disturbance, mood disturbance, and anxiety; E11.9 Type 2 diabetes mellitus without complications; I69.359 Hemiplegia and hemiparesis following cerebral infarction affecting unspecified side; Z79.899 Other long term (current) drug therapy; Z79.01 Long term (current) use of anticoagulants; Z79.82 Long term (current) use of aspirin; Z79.51 Long term (current) use of inhaled steroids
CPT/HCPCS: 36415; 70450; 71045; 80053; 83690; 83735; 84443; 85025; 96374; 99284; J2060

== ENCOUNTER 2022-12-14 14:02 | Outpatient (CLI) | payer MEDICARE, OTHER | END 2022-12-14 14:03 | disposition home or self-care (01) | LOC: EMS 14:02 | PROVIDERS: ATTEND Emergency Medicine | DX: R41.0 Disorientation, unspecified (principal); R20.0 Anesthesia of skin; F03.90 Unspecified dementia, unspecified severity, without behavioral disturbance, psychotic disturbance, mood disturbance, and anxiety | CPT/HCPCS: A0425; A0428 ==

== ENCOUNTER 2022-12-15 19:01 | Outpatient (CLI) | payer MEDICARE, OTHER | END 2022-12-15 19:02 | disposition critical access hospital (66) | LOC: EMS 19:01 | DX: R19.7 Diarrhea, unspecified (principal); R10.84 Generalized abdominal pain | CPT/HCPCS: A0425; A0429 ==

== ENCOUNTER 2022-12-15 19:08 | Emergency (ER) | payer MEDICARE, OTHER ==
--- NOTE | 2022-12-15 19:17 | ED Physician Documentation ---
History of Present Illness - Stated complaint Stated Complaint: GI/DIARRHEA - History obtained from History obtained from: Patient - Additonal information Additional information: The patient is brought to the emergency department by EMS for chief complaint of an episode of diarrhea and blood on the toilet paper when she wipes. The patient states that she started having a crampy abdominal pain this evening about 2 hours ago and then felt as though she was going to have an explosive bowel movement. She went to the bathroom and had quite a bit of diarrhea and when she wiped, she noticed a bright red streak on the toilet paper. She did not look in the toilet bowl, but the medics looked and stated they saw a lot of diarrhea but no bright red blood. The patient denies any blood with her stools or wiping over the past few days. No nausea or vomiting. No fevers or chills. No dysuria. No recent antibiotics. Patient denies any other complaints at this time. She has a history of diverticulitis and factor V Leiden and states that whenever she bleeds, she is worried because she has had blood clots before. 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 : None HEENT: None Psych: None Musculoskeletal: Hemiplegia Derm: None - Past Surgical History Past Surgical History: Yes General: Other Ortho: Arthroscopic surgery /SET UP MECHANIC COIL WINDING MACHINES: Hysterectomy Neuro: Craniotomy - Present Medications Home Medications: Ambulatory Orders Medication Instructions Recorded Confirmed Albuterol Sulf [Ventolin Hfa 1 - 2 puffs INH Q4HR PRN 03/14/22 11/12/22 Inhaler] Donepezil HCl [Aricept] 10 mg PO QPM 03/14/22 11/12/22 Isosorbide Mononitrate [Isosorbide 60 mg PO DAILY 03/14/22 11/12/22 Mononitrate ER] Potassium Chloride 20 meq PO DAILY 03/14/22 11/12/22 Rivaroxaban [Xarelto] 20 mg PO QDDINNER 03/14/22 11/12/22 Tiotropium [place] [Spiriva See Rx Instructions .ROUTE .COMPLEX 03/14/22 09/26/22 Respimat] minoxidiL [Minoxidil] 2.5 mg PO BID 03/14/22 11/12/22 Aspirin EC [Ecotrin] 81 mg PO DAILY #180 tablet 03/16/22 11/12/22 Atorvastatin [Lipitor] 40 mg PO QPM 05/22/22 11/12/22 Furosemide [Lasix] 20 mg PO BID 05/22/22 11/12/22 Acetaminophen [Tylenol] 650 mg PO Q4HR PRN tab 05/24/22 11/12/22 Losartan Potassium 25 mg PO DAILY 06/29/22 11/12/22 Senna [Senokot] 17.2 mg PO DAILY PRN 06/29/22 11/12/22 Lidocaine Patch 5% [Lidoderm Patch] 1 patch TOP DAILY PRN #10 patch 09/26/22 11/12/22 Amoxicillin 500 mg PO TID #15 cap 11/12/22 Bisacodyl Supp [Dulcolax Supp] 10 mg MS DAILY PRN 11/12/22 11/12/22 Melatonin 3 mg PO HS 11/12/22 11/12/22 Mineral Oil [Mineral Oil Enema] 1 ea RC PRN PRN 11/12/22 11/12/22 Neomycin/Poly/Dex Ophth Drops 3 drops EACHEYE QID 7 Days #5 ml 11/12/22 [Maxitrol Ophth Drops] Polymyxin B/Trimeth Ophth Drop 2 drops EACHEYE QID 11/12/22 11/12/22 [Polytrim Ophth Drops] Sertraline [Zoloft] 25 mg PO DAILY 11/12/22 11/12/22 polyethylene glycoL 3350 [Miralax] 17 gm PO DAILY PRN 11/12/22 11/12/22 - Allergies Allergies/Adverse Reactions: Allergies Allergy/AdvReac Type Severity Reaction Status Date / Time aspirin Allergy Unknown Verified 12/15/22 19:17 cortisone Allergy Hives Verified 12/15/22 19:17 lisinopril Allergy Unknown Verified 12/15/22 19:17 - Social History Does the pt smoke?: No Smoking Status: Never smoker Does the pt drink ETOH?: No Does the pt have substance abuse?: No - Immunizations Immunizations are current?: No - POLST Patient has POLST: No PD ED PE NORMAL - Vitals Vital signs reviewed: Yes - General General: No acute distress, Well developed/nourished, Other (Alert and appropriate.) - HEENT HEENT: Atraumatic, PERRL, EOMI, Moist mucous membranes - Neck Neck: Supple, no meningeal sign - Cardiac Cardiac: RRR, No murmur - Respiratory Respiratory: No respiratory distress, Clear bilaterally - Abdomen Abdomen: Soft, Non distended, Other (Mild diffuse tenderness, no focality, no rebound or guarding.) - Derm Derm: Normal color, Warm and dry, No rash - Extremities Extremities: No deformity, No edema - Neuro Neuro: Other (Alert, answers questions appropriately. No gross deficits.) - Psych Psych: Normal mood, Normal affect Results - Vitals Vitals: Oxygen O2 Source Room air - Labs Labs: Laboratory Tests 12/15/22 12/15/22 19:31 19:31 WBC 7.1 RBC 4.66 Hgb 12.9 Hct 41.4 MCV 88.8 MCH 27.7 MCHC 31.2 L RDW 13.9 Plt Count 189 MPV 10.8 Neut # (Auto) 4.9 Lymph # (Auto) 1.4 L Jackson # (Auto) 0.5 Eos # (Auto) 0.3 Baso # (Auto) 0.1 Absolute Nucleated RBC 0.00 Nucleated RBC % 0.0 Sodium 139 Potassium 3.5 Chloride 106 Carbon Dioxide 25 Anion Gap 8.0 BUN 17 Creatinine 1.0 Estimated GFR (MDRD) 54 L Glucose 80 Calcium 9.3 Total Bilirubin 0.4 AST 18 ALT 12 Alkaline Phosphatase 61 Total Protein 7.6 Albumin 4.2 Globulin 3.4 Albumin/Globulin Ratio 1.2 Lipase 79 PD Medical Decision Making - ED course Complexity details: reviewed results, re-evaluated patient, considered differential, d/w patient ED course: The patient was very well-appearing with a benign abdominal exam and according to reports, had only had a single episode of diarrhea and a single episode of blood on the toilet paper, with no blood in the actual stool or toilet bowl itself. Her rectal exam did not demonstrate ongoing bleeding. I felt it was highly unlikely that the patient was having significant lower GI bleed, and her abdominal exam was not consistent with diverticulitis. The pt's labs were reassuring, and I felt the pt was stable for d/c home. We have discussed the need for follow-up to set up another colonoscopy, and we have discussed the usual indications for return. Departure - Departure Disposition: 01 Home, Self Care Clinical Impression: Lower GI bleed Diarrhea Qualifiers: Diarrhea type: unspecified type Qualified Code(s): R19.7 - Diarrhea, unspecified Condition: Stable Instructions: ED Diarrhea Viral, ED Hematochezia Stable Comments: Your laboratory studies look great. There is no evidence of any significant amount of blood having been lost. Furthermore, it sounds like you had a very mild amount of bleeding that was only noticed on the toilet paper, but the medics did not see any blood in the toilet bowl or amongst your stool. Your rectal exam does not show any ongoing bleeding at all. Furthermore, your abdominal exam is benign. At this point in time, its not clear what caused her diarrhea. You could have one of the many viruses that are going around and causing diarrhea, or it could just be that something you ate did not agree with you. What ever the case, you may have occasional bleeding from your anal area, especially with bowel movements, while you have diarrhea. This is not unusual in his lungs it is only on the toilet paper and you are not having large amounts in the toilet bowl, it is generally nothing to be concerned about and will pass on its own. Please follow-up your primary doctor as needed for further concerns or issues. Forms: PCP List Discharge Date/Time: 12/15/22 20:17
[2022-12-15 19:37] LABS: BASOPHILS # (AUTO) 0.1 10^3/uL (0.0-0.1); BASOPHILS % (AUTO) 0.7 %; EOSINOPHILS # (AUTO) 0.3 10^3/uL (0.0-0.7); EOSINOPHILS % (AUTO) 4.6 %; HCT - HEMATOCRIT 41.4 % (37.0-47.0); HGB - HEMOGLOBIN 12.9 g/dL (12.0-16.0); LYMPHOCYTES # (AUTO) 1.4 10^3/uL (1.5-3.5); MEAN CORPUSCULAR HEMOGLOBIN 27.7 pg (27.0-31.0); MEAN CORPUSCULAR HGB CONC 31.2 g/dL (32.0-36.0); MEAN CORPUSCULAR VOLUME 88.8 fL (81.0-99.0); MEAN PLATELET VOLUME 10.8 fL (7.9-10.8); MONOCYTES # (AUTO) 0.5 10^3/uL (0.0-1.0); MONOCYTES % (AUTO) 7.2 %; NEUTROPHILS # (AUTO) 4.9 10^3/uL (1.5-6.6); NEUTROPHILS % (AUTO) 68.4 %; PLT - PLATELET COUNT 189 10^3/uL (130-450); RED BLOOD COUNT 4.66 10^6/uL (4.20-5.40); RED CELL DISTRIBUTION WIDTH 13.9 % (12.0-15.0); WHITE BLOOD COUNT 7.1 x10^3/uL (4.8-10.8)
[2022-12-15 19:55] LABS: ALBUMIN 4.2 g/dL (3.2-5.5); ALBUMIN/GLOBULIN RATIO 1.2 (1.0-2.2); BILIRUBIN,TOTAL 0.4 mg/dL (0.2-1.0); CALCIUM 9.3 mg/dL (8.5-10.3); POTASSIUM 3.5 mmol/L (3.5-4.5); TOTAL PROTEIN 7.6 g/dL (6.4-8.9)
[2022-12-15 20:18] VITALS: BP 114/60; O2SAT 98
== END 2022-12-15 20:17 | disposition home or self-care (01) ==
LOC: EDUNIT# → ED 19:08
DX: K92.2 Gastrointestinal hemorrhage, unspecified (principal); R19.7 Diarrhea, unspecified; I50.9 Heart failure, unspecified; E11.9 Type 2 diabetes mellitus without complications; F03.90 Unspecified dementia, unspecified severity, without behavioral disturbance, psychotic disturbance, mood disturbance, and anxiety; I69.359 Hemiplegia and hemiparesis following cerebral infarction affecting unspecified side; D68.51 Activated protein C resistance; Z79.899 Other long term (current) drug therapy; Z79.82 Long term (current) use of aspirin
CPT/HCPCS: 36415; 80053; 83690; 85025; 99283

== ENCOUNTER 2022-12-15 20:15 | Outpatient (CLI) | payer MEDICARE, OTHER | END 2022-12-15 23:59 | disposition home or self-care (01) | LOC: EMS 20:15 | PROVIDERS: ATTEND Emergency Medicine | DX: R19.7 Diarrhea, unspecified (principal); F03.90 Unspecified dementia, unspecified severity, without behavioral disturbance, psychotic disturbance, mood disturbance, and anxiety; R41.0 Disorientation, unspecified | CPT/HCPCS: A0425; A0428 ==

== ENCOUNTER 2023-01-03 11:05 | Outpatient (CLI) | payer MEDICARE, OTHER | END 2023-01-03 11:06 | disposition critical access hospital (66) | LOC: EMS 11:05 | DX: H57.11 Ocular pain, right eye (principal); H57.89 Other specified disorders of eye and adnexa | CPT/HCPCS: A0425; A0429 ==

== ENCOUNTER 2023-01-03 11:13 | Emergency (ER) | payer MEDICARE, OTHER ==
[2023-01-03 11:20] VITALS: BP 149/80; O2SAT 96
[2023-01-03] MEDS ORDERED: PROPARACAINE 0.5% OPHTH DROPS 15 ML EACHEYE STA (11:53)
--- NOTE | 2023-01-03 11:53 | ED Physician Documentation ---
PD HPI OPHTHO - Stated complaint Stated Complaint: R EYE PX - Chief complaint Chief Complaint: Heent - History obtained from History obtained from: Patient - History of Present Illness Timing - onset: How many weeks ago (she states her right eye has been hurting for 1-2 weeks though she is not sure of times often due to dementia/memory issues. No noted injury.) Timing - details: Gradual onset, Waxing and waning Location: Right Quality / character: Itching, Burning Associated symptoms: Redness, Tearing. No: Discharge, Matting, FB sensation Contributing factors: No: Exposed to conjunctivitis, Recent URI, FB, Wears contacts Similar symptoms before: No diagnosis (has order for lubricating eye drops 4 times daily [facility] on her APR.) Review of Systems Constitutional: denies: Fever Eyes: reports: Decreased vision (has cataract in that eye with significant dulling of vision for awhile.), Irritation. 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 HEENT: None Psych: None Musculoskeletal: Hemiplegia Derm: None - Past Surgical History Past Surgical History: Yes General: Other Ortho: Arthroscopic surgery /HANDLE MAKER: Hysterectomy Neuro: Craniotomy - Present Medications Home Medications: Ambulatory Orders Medication Instructions Recorded Confirmed Albuterol Sulf [Ventolin Hfa 1 - 2 puffs INH Q4HR PRN 03/14/22 11/12/22 Inhaler] Donepezil HCl [Aricept] 10 mg PO QPM 03/14/22 11/12/22 Isosorbide Mononitrate [Isosorbide 60 mg PO DAILY 03/14/22 11/12/22 Mononitrate ER] Potassium Chloride 20 meq PO DAILY 03/14/22 11/12/22 Rivaroxaban [Xarelto] 20 mg PO QDDINNER 03/14/22 11/12/22 Tiotropium [place] [Spiriva See Rx Instructions .ROUTE .COMPLEX 03/14/22 09/26/22 Respimat] minoxidiL [Minoxidil] 2.5 mg PO BID 03/14/22 11/12/22 Aspirin EC [Ecotrin] 81 mg PO DAILY #180 tablet 03/16/22 11/12/22 Atorvastatin [Lipitor] 40 mg PO QPM 05/22/22 11/12/22 Furosemide [Lasix] 20 mg PO BID 05/22/22 11/12/22 Acetaminophen [Tylenol] 650 mg PO Q4HR PRN tab 05/24/22 11/12/22 Losartan Potassium 25 mg PO DAILY 06/29/22 11/12/22 Senna [Senokot] 17.2 mg PO DAILY PRN 06/29/22 11/12/22 Lidocaine Patch 5% [Lidoderm Patch] 1 patch TOP DAILY PRN #10 patch 09/26/22 11/12/22 Amoxicillin 500 mg PO TID #15 cap 11/12/22 Bisacodyl Supp [Dulcolax Supp] 10 mg [place] DAILY PRN 11/12/22 11/12/22 Melatonin 3 mg PO HS 11/12/22 11/12/22 Mineral Oil [Mineral Oil Enema] 1 ea RC PRN PRN 11/12/22 11/12/22 Neomycin/Poly/Dex Ophth Drops 3 drops EACHEYE QID 7 Days #5 ml 11/12/22 [Maxitrol Ophth Drops] Polymyxin B/Trimeth Ophth Drop 2 drops EACHEYE QID 11/12/22 11/12/22 [Polytrim Ophth Drops] Sertraline [Zoloft] 25 mg PO DAILY 11/12/22 11/12/22 polyethylene glycoL 3350 [Miralax] 17 gm PO DAILY PRN 11/12/22 11/12/22 Ketorolac Tromethamine 2 drops RIGHTEYE BID 20 Days #10 ml 01/03/23 Ketotifen Fumarate [Eye Itch 2 drops RIGHTEYE BID #5 ml 01/03/23 Relief] - Allergies Allergies/Adverse Reactions: Allergies Allergy/AdvReac Type Severity Reaction Status Date / Time aspirin Allergy Unknown Verified 12/15/22 19:17 cortisone Allergy Hives Verified 12/15/22 19:17 lisinopril Allergy Unknown Verified 12/15/22 19:17 - Social History Does the pt smoke?: No Smoking Status: Never smoker Does the pt drink ETOH?: No Does the pt have substance abuse?: No - Immunizations Immunizations are current?: No - POLST Patient has POLST: No PD ED PE NORMAL - Vitals Vital signs reviewed: Yes - General General: Well developed/nourished. No: Alert and oriented X 3 (person and place. ) - HEENT HEENT: EOMI, Other (left eye with reactive pupil. Right has dilated pupil with minimal reactivity and coudiness of lens c/w cataract. No flares in anterior chaber. Posteriorly showing poorly seen fundus. ) PD ED PE EXPANDED - Eyes Eyes: Injected conj/sclera, Anterior chambers clear, Other (IOP 14). No: Exudate, Corneal FB, Corneal ulcer, Fluorescein uptake Results - Vitals Vitals: Vital Signs - 24 hr 01/03/23 11:17 Temperature 36.1 C L Heart Rate 61 Respiratory 20 Rate Blood Pressure 149/80 H O2 Saturation 96 Oxygen O2 Source Room air PD Medical Decision Making - ED course Complexity details: considered differential (irritation with redness and mild swelling of conjunctiva on right. No exudate. Presume allergic or irritated conjunctivitis. Can add antihistamine and NSAID drops. ), d/w patient Departure - Departure Disposition: 01 Home, Self Care Clinical Impression: Irritation of right eye, Allergic conjunctivitis Condition: Stable Record reviewed to determine appropriate education?: Yes Instructions: ED Conjunctivitis Nonspecific Follow-Up: [facility] [Provider Group] Prescriptions: Ketotifen Fumarate [Eye Itch Relief] 2 drops RIGHTEYE BID #5 ml Ketorolac Tromethamine 2 drops RIGHTEYE BID 20 Days #10 ml Comments: Your right eye does appear to have redness and inflammation of the conjunctive. It does not look like a bacterial infection. At this point I would try combination of antihistamine and anti-inflammatory eyedrops twice daily. Continue with the moisturizing eyedrops. Follow-up with your seeing eye dog trainer if not really improved over the next 3 to 5 days. I sent your prescription to your preferred pharmacy. Medication directions: 1. Continue usual current medication administration list. 2. Ketotifen 2 drops in the right eye twice daily 3. Ketorolac anti-inflammatory drops 2 drops twice daily in the right eye. Forms: PCP List Discharge Date/Time: 01/03/23 13:35
== END 2023-01-03 13:35 | disposition home or self-care (01) ==
LOC: EDUNIT# → ED 11:13
DX: H10.11 Acute atopic conjunctivitis, right eye (principal)
CPT/HCPCS: 99283; J3490

== ENCOUNTER 2023-01-03 13:35 | Outpatient (CLI) | payer MEDICARE, OTHER | END 2023-01-03 23:59 | disposition home or self-care (01) | LOC: EMS 13:35 | PROVIDERS: ATTEND Emergency Medicine | DX: F03.90 Unspecified dementia, unspecified severity, without behavioral disturbance, psychotic disturbance, mood disturbance, and anxiety (principal); R41.0 Disorientation, unspecified | CPT/HCPCS: A0425; A0428 ==

== ENCOUNTER 2023-01-26 20:03 | Outpatient (CLI) | payer MEDICARE, OTHER | END 2023-01-26 20:04 | disposition critical access hospital (66) | LOC: EMS 20:03 | DX: H57.11 Ocular pain, right eye (principal); H54.61 Unqualified visual loss, right eye, normal vision left eye | CPT/HCPCS: A0425; A0429 ==

== ENCOUNTER 2023-01-26 20:08 | Emergency (ER) | payer MEDICARE, OTHER ==
--- NOTE | 2023-01-26 20:12 | ED Physician Documentation ---
PD HPI OPHTHO - Stated complaint Stated Complaint: R EYE PX - History obtained from History obtained from: Patient, EMS - Additional information Additional information: BIBA. Patient complains of right eye pain x several months. She says it has steadily been worsening although unclear over what time frame. She has been evaluated for similar c/o in this ED before (06/29/22, 11/12/22, 01/03/23). Previous tx included topical and oral antibiotics, topical (ophtho) NSAID, topical (ophtho) anithistamine. work up on previous ED visits includes OMFS CT (unremarkable/nondiagnostic result). Patient denies recent injury, denies acute visual change. No exacerbating nor ameliorating factors. 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 : None HEENT: None Psych: None Musculoskeletal: Hemiplegia Derm: None - Past Surgical History Past Surgical History: Yes General: Other Ortho: Arthroscopic surgery /TOLL REPAIRER CENTRAL OFFICE: Hysterectomy Neuro: Craniotomy - Present Medications Home Medications: Ambulatory Orders Medication Instructions Recorded Confirmed Albuterol Sulf [Ventolin Hfa 1 - 2 puffs INH Q4HR PRN 03/14/22 01/26/23 Inhaler] Donepezil HCl [Aricept] 10 mg PO QPM 03/14/22 01/26/23 Isosorbide Mononitrate [Isosorbide 60 mg PO DAILY 03/14/22 01/26/23 Mononitrate ER] Potassium Chloride 20 meq PO DAILY 03/14/22 01/26/23 Rivaroxaban [Xarelto] 20 mg PO QDDINNER 03/14/22 01/26/23 Tiotropium [place] [Spiriva See Rx Instructions .ROUTE .COMPLEX 03/14/22 01/26/23 Respimat] minoxidiL [Minoxidil] 2.5 mg PO BID 03/14/22 01/26/23 Aspirin EC [Ecotrin] 81 mg PO DAILY #180 tablet 03/16/22 01/26/23 Atorvastatin [Lipitor] 40 mg PO QPM 05/22/22 01/26/23 Furosemide [Lasix] 20 mg PO BID 05/22/22 01/26/23 Acetaminophen [Tylenol] 650 mg PO Q4HR PRN tab 05/24/22 01/26/23 Losartan Potassium 25 mg PO DAILY 06/29/22 01/26/23 Senna [Senokot] 17.2 mg PO DAILY PRN 06/29/22 01/26/23 Lidocaine Patch 5% [Lidoderm Patch] 1 patch TOP DAILY PRN #10 patch 09/26/22 01/26/23 Amoxicillin 500 mg PO TID #15 cap 11/12/22 01/26/23 Bisacodyl Supp [Dulcolax Supp] 10 mg IN DAILY PRN 11/12/22 01/26/23 Melatonin 3 mg PO HS 11/12/22 01/26/23 Mineral Oil [Mineral Oil Enema] 1 ea RC PRN PRN 11/12/22 01/26/23 Neomycin/Poly/Dex Ophth Drops 3 drops EACHEYE QID 7 Days #5 ml 11/12/22 01/26/23 [Maxitrol Ophth Drops] Polymyxin B/Trimeth Ophth Drop 2 drops EACHEYE QID 11/12/22 01/26/23 [Polytrim Ophth Drops] Sertraline [Zoloft] 25 mg PO DAILY 11/12/22 01/26/23 polyethylene glycoL 3350 [Miralax] 17 gm PO DAILY PRN 11/12/22 01/26/23 Ketorolac Tromethamine 2 drops RIGHTEYE BID 20 Days #10 ml 01/03/23 01/26/23 Ketotifen Fumarate [Eye Itch 2 drops RIGHTEYE BID #5 ml 01/03/23 01/26/23 Relief] Ketorolac 0.45% Ophth Drops 1 drops RIGHTEYE BID PRN #0.4 ml 01/26/23 [Acuvail] - Allergies Allergies/Adverse Reactions: Allergies Allergy/AdvReac Type Severity Reaction Status Date / Time aspirin Allergy Unknown Verified 01/26/23 20:17 cortisone Allergy Hives Verified 01/26/23 20:17 lisinopril Allergy Unknown Verified 01/26/23 20:17 - Social History Does the pt smoke?: No Smoking Status: Never smoker Does the pt drink ETOH?: No Does the pt have substance abuse?: No - Immunizations Immunizations are current?: No - POLST Patient has POLST: No PD ED PE NORMAL - Vitals Vital signs reviewed: Yes - General General: No acute distress, Well developed/nourished - HEENT HEENT: Atraumatic, PERRL, EOMI, Other PD ED PE EXPANDED - Eyes Eyes: Normal eyelids, Injected conj/sclera (mild right eye conjunctival injection), Anterior chambers clear, Temp arteries nontender. No: Exudate, Fluorescein uptake Results - Vitals Vitals: Oxygen O2 Source Room air PD Medical Decision Making - ED course Complexity details: considered differential, d/w patient Departure - Departure Disposition: Home, Self Care Clinical Impression: Pain, eye, right Condition: Good Instructions: ED Conjunctivitis Nonspecific Prescriptions: Ketorolac 0.45% Ophth Drops [Acuvail] 1 drops RIGHTEYE BID PRN #0.4 ml PRN Reason: As Needed Per Provider Orders Comments: There was no evidence of corneal abrasion on tonight's exam. You are being provided with antibiotic drops to cover the possibility of a infectious cause such as conjunctivitis. The antibiotic drops are to be used as follows: 1 drop in right eye 3 times per day for 1 week. I am also providing you with a prescription for an anti-inflammatory eyedrop to be used as needed up to twice per day for eye pain. Contact your impregnator [employer] products in the morning to arrange for next available appointment for reevaluation/follow-up. Forms: PCP List Discharge Date/Time: 01/26/23 20:50
[2023-01-26 20:21] VITALS: BP 151/67; O2SAT 99
[2023-01-26] MEDS ORDERED: PROPARACAINE 0.5% OPHTH DROPS 15 ML RIGHTEYE STA (20:21)
[2023-01-26] MEDS ORDERED: POLYMYXIN B/TRIMETH OPHTH DROPS RIGHTEYE STA (20:33)
[2023-01-26] MEDS ORDERED: KETOROLAC 0.45% OPHTH DROPS RIGHTEYE STA (20:34)
== END 2023-01-26 20:50 | disposition home or self-care (01) ==
LOC: EDUNIT# → ED 20:08
DX: H57.11 Ocular pain, right eye (principal); I50.9 Heart failure, unspecified; E11.9 Type 2 diabetes mellitus without complications; F03.90 Unspecified dementia, unspecified severity, without behavioral disturbance, psychotic disturbance, mood disturbance, and anxiety; I69.359 Hemiplegia and hemiparesis following cerebral infarction affecting unspecified side; Z79.899 Other long term (current) drug therapy; Z79.01 Long term (current) use of anticoagulants
CPT/HCPCS: 99283; A9270; J3490

== ENCOUNTER 2023-01-26 20:53 | Outpatient (CLI) | payer MEDICARE, OTHER | END 2023-01-26 20:54 | LOC: EMS 20:53 | PROVIDERS: ATTEND Emergency Medicine | DX: R41.0 Disorientation, unspecified (principal); H57.11 Ocular pain, right eye; F03.90 Unspecified dementia, unspecified severity, without behavioral disturbance, psychotic disturbance, mood disturbance, and anxiety | CPT/HCPCS: A0425; A0428 ==

== ENCOUNTER 2023-02-15 08:00 | Outpatient (CLI) | payer MEDICARE, OTHER, MEDICAID ==
[2023-02-15 15:34] LABS: ALBUMIN 3.9 g/dL (3.2-5.5); ALBUMIN/GLOBULIN RATIO 1.2 (1.0-2.2); BILIRUBIN,TOTAL 0.5 mg/dL (0.2-1.0); CALCIUM 9.2 mg/dL (8.5-10.3); CREATININE 1.4 mg/dL (0.6-1.3); POTASSIUM 3.8 mmol/L (3.5-4.5); TOTAL PROTEIN 7.2 g/dL (6.4-8.9)
== END 2023-02-15 23:59 | disposition home or self-care (01) ==
LOC: LAB.R 08:00
PROVIDERS: ATTEND Registered Nurse
DX: E11.9 Type 2 diabetes mellitus without complications (principal)
CPT/HCPCS: 80053

== ENCOUNTER 2023-02-16 08:00 | Outpatient (CLI) | payer MEDICARE, OTHER, MEDICAID ==
[2023-02-16 14:19] LABS: ALBUMIN 3.8 g/dL (3.2-5.5); ALBUMIN/GLOBULIN RATIO 1.2 (1.0-2.2); BILIRUBIN,TOTAL 0.5 mg/dL (0.2-1.0); CALCIUM 9.3 mg/dL (8.5-10.3); CREATININE 1.3 mg/dL (0.6-1.3); POTASSIUM 4.1 mmol/L (3.5-4.5)
== END 2023-02-16 23:59 | disposition home or self-care (01) ==
LOC: LAB.R 08:00
PROVIDERS: ATTEND Registered Nurse
DX: I10 Essential (primary) hypertension (principal)
CPT/HCPCS: 80053

== ENCOUNTER 2023-03-19 08:00 | Outpatient (CLI) | payer MEDICARE, OTHER, MEDICAID ==
[2023-03-19 17:22] LABS: ALBUMIN 3.8 g/dL (3.2-5.5); ALBUMIN/GLOBULIN RATIO 1.1 (1.0-2.2); BILIRUBIN,TOTAL 0.5 mg/dL (0.2-1.0); CALCIUM 9.4 mg/dL (8.5-10.3); CREATININE 1.5 mg/dL (0.6-1.3); POTASSIUM 4.2 mmol/L (3.5-4.5); TOTAL PROTEIN 7.3 g/dL (6.4-8.9)
== END 2023-03-19 23:29 | disposition home or self-care (01) ==
LOC: LAB.R 08:00
DX: I10 Essential (primary) hypertension (principal)
CPT/HCPCS: 80053

== ENCOUNTER 2023-03-21 10:18 | Outpatient (CLI) | payer MEDICARE, OTHER, MEDICAID | END 2023-03-21 23:59 | disposition critical access hospital (66) | LOC: EMS 10:18 | DX: R41.0 Disorientation, unspecified (principal); L50.9 Urticaria, unspecified | CPT/HCPCS: A0425; A0427 ==

== ENCOUNTER 2023-03-21 10:24 | Emergency (ER) | payer MEDICARE, OTHER, MEDICAID ==
[2023-03-21 10:41] VITALS: O2SAT 99
--- NOTE | 2023-03-21 11:36 | ED Physician Documentation ---
PD HPI SKIN - Stated complaint Stated Complaint: HIVES - Chief complaint Chief Complaint: Allergic Rx - History obtained from History obtained from: Patient - Additional information Additional information: Patient is a 72-year-old female who resides at [facility] presenting for evaluation of a skin rash that started yesterday and is itchy in nature. Patient was recently started on Neurontin for some nerve pain. She has been given a dose of Benadryl this morning as well as IM Benadryl from EMS. She denies chest pain, shortness of air, fevers. 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 Ataxia. Heart failure. Trhombophilia. DVT - Past Surgical History Past Surgical History: Yes General: Other Ortho: Arthroscopic surgery /THERMOSTATIC CONTROLS SUPERVISOR: Hysterectomy Neuro: Craniotomy - Present Medications Home Medications: Ambulatory Orders Medication Instructions Recorded Confirmed Albuterol Sulf [Ventolin Hfa 1 - 2 puffs INH Q4HR PRN 03/14/22 01/26/23 Inhaler] Donepezil HCl [Aricept] 10 mg PO QPM 03/14/22 01/26/23 Isosorbide Mononitrate [Isosorbide 60 mg PO DAILY 03/14/22 01/26/23 Mononitrate ER] Potassium Chloride 20 meq PO DAILY 03/14/22 01/26/23 Rivaroxaban [Xarelto] 20 mg PO QDDINNER 03/14/22 01/26/23 Tiotropium [place] [Spiriva See Rx Instructions .ROUTE .COMPLEX 03/14/22 01/26/23 Respimat] minoxidiL [Minoxidil] 2.5 mg PO BID 03/14/22 01/26/23 Aspirin EC [Ecotrin] 81 mg PO DAILY #180 tablet 03/16/22 01/26/23 Atorvastatin [Lipitor] 40 mg PO QPM 05/22/22 01/26/23 Furosemide [Lasix] 20 mg PO BID 05/22/22 01/26/23 Acetaminophen [Tylenol] 650 mg PO Q4HR PRN tab 05/24/22 01/26/23 Losartan Potassium 25 mg PO DAILY 06/29/22 01/26/23 Senna [Senokot] 17.2 mg PO DAILY PRN 06/29/22 01/26/23 Lidocaine Patch 5% [Lidoderm Patch] 1 patch TOP DAILY PRN #10 patch 09/26/22 01/26/23 Amoxicillin 500 mg PO TID #15 cap 11/12/22 01/26/23 Bisacodyl Supp [Dulcolax Supp] 10 mg [place] DAILY PRN 11/12/22 01/26/23 Melatonin 3 mg PO HS 11/12/22 01/26/23 Mineral Oil [Mineral Oil Enema] 1 ea RC PRN PRN 11/12/22 01/26/23 Neomycin/Poly/Dex Ophth Drops 3 drops EACHEYE QID 7 Days #5 ml 11/12/22 01/26/23 [Maxitrol Ophth Drops] Polymyxin B/Trimeth Ophth Drop 2 drops EACHEYE QID 11/12/22 01/26/23 [Polytrim Ophth Drops] Sertraline [Zoloft] 25 mg PO DAILY 11/12/22 01/26/23 polyethylene glycoL 3350 [Miralax] 17 gm PO DAILY PRN 11/12/22 01/26/23 Ketorolac Tromethamine 2 drops RIGHTEYE BID 20 Days #10 ml 01/03/23 01/26/23 Ketotifen Fumarate [Eye Itch 2 drops RIGHTEYE BID #5 ml 01/03/23 01/26/23 Relief] Ketorolac 0.45% Ophth Drops 1 drops RIGHTEYE BID PRN #0.4 ml 01/26/23 [Acuvail] diphenhydrAMINE [Benadryl] 25 - 50 mg PO Q6H PRN #30 cap 03/21/23 predniSONE [Deltasone] 20 mg PO [id number] #21 tab 03/21/23 - Allergies Allergies/Adverse Reactions: Allergies Allergy/AdvReac Type Severity Reaction Status Date / Time aspirin Allergy Unknown Verified 03/21/23 10:54 cortisone Allergy Hives Verified 03/21/23 10:54 lisinopril Allergy Unknown Verified 03/21/23 10:54 - Social History Does the pt smoke?: No Smoking Status: Never smoker Does the pt drink ETOH?: No Does the pt have substance abuse?: No - Immunizations Immunizations are current?: Yes - POLST Patient has POLST: No PD ED PE NORMAL - General General: No acute distress, Well developed/nourished, Other (Alert to person and place) - HEENT HEENT: Atraumatic, Moist mucous membranes, Pharynx benign - Neck Neck: Supple, no meningeal sign - Cardiac Cardiac: RRR, Strong equal pulses - Respiratory Respiratory: No respiratory distress, Clear bilaterally - Abdomen Abdomen: Soft, Non tender, Non distended - Derm Derm: Other (Blanching maculopapular rash to chest, abdomen and back, no oral lesions, negative Nikolsky) - Neuro Neuro: Normal speech Results - Vitals Vitals: Vital Signs - 24 hr 03/21/23 03/21/23 10:33 12:11 Temperature 36.8 C Heart Rate 105 H 67 Respiratory 16 16 Rate Blood Pressure 102/56 L 133/69 H O2 Saturation 99 99 Oxygen O2 Source Room air PD Medical Decision Making - ED course ED course: Patient presenting for a rash to her trunk. Vital signs are stable. Has been receiving Benadryl to help with the itching. Was recently started on Neurontin. Suspect that the rash is allergic in nature. No signs of infection. Patient is nontoxic. I will start on a course of prednisone given known widespread distribution and have patient stop Neurontin.Patient counseled on need for follow-up with primary care as well as concerning symptoms to return for. Departure - Departure Disposition: 01 Home, Self Care Clinical Impression: Rash and nonspecific skin eruption Condition: Stable Instructions: ED Allergic Reaction General Other, ED Dermatitis Non Specific Rash Prescriptions: diphenhydrAMINE [Benadryl] 25 - 50 mg PO Q6H PRN #30 cap PRN Reason: Itching predniSONE [Deltasone] 20 mg PO [id number] #21 tab Comments: I am concerned that your symptoms are related to an allergic reaction causing your rash. Stop taking the neurontin. I have started you on a course of prednisone and have sent this prescription to your pharmacy - [facility]. In addition you should use Benadryl as needed to avoid itching as you do not want a superimposed bacterial infection. I would recommend close follow-up with your primary care provider. If your rash is not improving then you may need follow- up with a specialist. Return to the ER with any worsening such as shortness of breath, Concerns for infection. Forms: PCP List Discharge Date/Time: 03/21/23 12:11
[2023-03-21] MEDS: predniSONE 20 MG TABLET PO STA (11:44)
[2023-03-21 12:19] VITALS: BP 133/69
== END 2023-03-21 12:11 | disposition home or self-care (01) ==
LOC: EDUNIT# → EDBD → ED 10:24
DX: R21 Rash and other nonspecific skin eruption (principal); E11.9 Type 2 diabetes mellitus without complications
CPT/HCPCS: 99283; J7512

== ENCOUNTER 2023-03-22 22:21 | Outpatient (CLI) | payer MEDICARE, OTHER, MEDICAID | END 2023-03-22 22:22 | disposition critical access hospital (66) | LOC: EMS 22:21 | DX: R21 Rash and other nonspecific skin eruption (principal); L50.9 Urticaria, unspecified | CPT/HCPCS: A0425; A0429 ==

== ENCOUNTER 2023-03-22 22:29 | Emergency (ER) | payer MEDICARE, OTHER, MEDICAID ==
--- NOTE | 2023-03-22 22:32 | ED Physician Documentation ---
History of Present Illness - Stated complaint Stated Complaint: ALLERGIC REACTION - History obtained from History obtained from: Patient - Additonal information Additional information: T+R from this ED yesterday for same c/o. Patient c/o generalized pruritic rash x 2 days. Recently started on neurontin and thus some speculation the rash might be due to this medication; discharge instructions provided yesterday from this ED include instruction to stop taking neurontin. Patient is mildly confused and thus not reliable in regards to ROS and medications. Her chief and only c/o is the intense pruritis associated with this rash. She denies dyspnea, cough, wheezing. Review of Systems Cardiac: denies: Chest pain / pressure Respiratory: denies: Dyspnea, Cough, Wheezing Skin: reports: Rash PD PAST MEDICAL HISTORY - Past Medical History Cardiovascular: Congestive heart failure, Deep vein thrombosis, Other Respiratory: None Neuro: Alzhiemer's Endocrine/Autoimmune: Type 2 diabetes GI: None COMMUNICATION ENGINEER: None : None HEENT: None Psych: None Musculoskeletal: Hemiplegia Derm: None - Past Surgical History Past Surgical History: Yes General: Other Ortho: Arthroscopic surgery /COMMUNICATION ENGINEER: Hysterectomy Neuro: Craniotomy - Present Medications Home Medications: Ambulatory Orders Medication Instructions Recorded Confirmed Albuterol Sulf [Ventolin Hfa 1 - 2 puffs INH Q4HR PRN 03/14/22 03/24/23 Inhaler] Donepezil HCl [Aricept] 10 mg PO QPM 03/14/22 03/24/23 Isosorbide Mononitrate [Isosorbide 60 mg PO DAILY 03/14/22 03/24/23 Mononitrate ER] Potassium Chloride 20 meq PO DAILY 03/14/22 03/24/23 Rivaroxaban [Xarelto] 20 mg PO QDDINNER 03/14/22 03/24/23 minoxidiL [Minoxidil] 2.5 mg PO BID 03/14/22 03/24/23 Aspirin EC [Ecotrin] 81 mg PO DAILY #180 tablet 03/16/22 03/24/23 Atorvastatin [Lipitor] 40 mg PO QPM 05/22/22 03/24/23 Furosemide [Lasix] 20 mg PO BID 05/22/22 03/24/23 Acetaminophen [Tylenol] 650 mg PO Q4HR PRN tab 05/24/22 03/24/23 Losartan Potassium 25 mg PO DAILY 06/29/22 03/24/23 Senna [Senokot] 17.2 mg PO DAILY PRN 06/29/22 03/24/23 Lidocaine Patch 5% [Lidoderm Patch] 1 patch TOP DAILY PRN #10 patch 09/26/22 03/24/23 Bisacodyl Supp [Dulcolax Supp] 10 mg [place] DAILY PRN 11/12/22 03/24/23 Melatonin 3 mg PO HS 11/12/22 03/24/23 Mineral Oil [Mineral Oil Enema] 1 ea RC PRN PRN 11/12/22 03/24/23 Sertraline [Zoloft] 25 mg PO DAILY 11/12/22 03/24/23 polyethylene glycoL 3350 [Miralax] 17 gm PO DAILY PRN 11/12/22 03/24/23 predniSONE [Deltasone] 20 mg PO [id number] #21 tab 03/21/23 03/24/23 Carboxymethylcellulose 1% Opht 2 drops RIGHTEYE TID 03/22/23 03/24/23 [Refresh 1% Ophth Drops] Ketotifen Fumarate [Eye Itch 2 drops RIGHTEYE TID 03/22/23 03/24/23 Relief] LORazepam [Ativan] 0.5 mg PO DAILY PRN 03/22/23 03/24/23 diphenhydrAMINE [Benadryl] 25 mg PO Q6H PRN 03/22/23 03/24/23 hydrOXYzine PAMOATE [Vistaril] 25 mg PO HS PRN #10 03/22/23 03/24/23 traMADol [Ultram] 25 mg PO DAILY PRN 03/22/23 03/24/23 Sulfamethox/Trimeth 800/160 1 each PO BID #14 tablet 03/24/23 [Bactrim Ds 800/160] - Allergies Allergies/Adverse Reactions: Allergies Allergy/AdvReac Type Severity Reaction Status Date / Time aspirin Allergy Unknown Verified 03/24/23 00:17 cortisone Allergy Hives Verified 03/24/23 00:17 gabapentin [From Neurontin] Allergy Rash Verified 03/24/23 00:17 lisinopril Allergy Unknown Verified 03/24/23 00:17 - Social History Does the pt smoke?: No Smoking Status: Never smoker Does the pt drink ETOH?: No Does the pt have substance abuse?: No - Immunizations Immunizations are current?: Yes - POLST Patient has POLST: No PD ED PE NORMAL - Vitals Vital signs reviewed: Yes - General General: No acute distress, Well developed/nourished, Other (AAO x 2) - HEENT HEENT: PERRL, EOMI - Neck Neck: Supple, no meningeal sign - Cardiac Cardiac: RRR - Respiratory Respiratory: No respiratory distress, Clear bilaterally - Abdomen Abdomen: Soft, Non tender PD ED PE EXPANDED - Derm Derm: Rash (flat macular erythematous exanthem on trunk and all four extremities; there is sparing of palms, face/neck. The rash is most pronounced on neck where there is marked confluence. no abnormal warmth to touch, no fluctuance) Results - Vitals Vitals: Oxygen O2 Source Room air PD Medical Decision Making - ED course Complexity details: considered differential, d/w patient ED course: The appearance of the exanthem is c/w allergic reaction. ED RN contacted [facility] and they confirm that patient received the prescribed dose of prednisone earlier today but has not received benadryl since this morning. She is given 10 mg PO decadron and 25mg PO hydroxyzine and d/c back to [facility]. She is to continue the prednisone taper as prescribed; I asked ED RN to emphasize to [facility] staff that the benadryl can be taken 25-50mg Q6 hours PRN (as per the prescription provided yesterday). I am providing rx for hydroxyzine to be taken 25mg PO QHS PRN for pruritis not adequately controlled by the benadryl. Departure - Departure Disposition: 01 Home, Self Care Clinical Impression: Rash and nonspecific skin eruption Condition: Good Instructions: ED Urticaria Prescriptions: hydrOXYzine PAMOATE [Vistaril] 25 mg PO HS PRN #10 PRN Reason: Itching Comments: Continue the steroid as prescribed yesterday (previous ER visit). Tonight, you are given an extra dose of steroid orally (dexamethasone). You were also given a dose of hydroxyzine; this is an antihistamine that tends to be more effective than Benadryl although it can also cause more drowsiness than the Benadryl. Continue with Benadryl as needed for rash/itching as was prescribed yesterday. I am providing a prescription for the hydroxyzine which can be used at nighttime if you are unable to sleep due to itching caused by the rash. Forms: PCP List Discharge Date/Time: 03/22/23 23:45
[2023-03-22] MEDS: hydrOXYzine PAMOATE 25 MG CAPSULE PO STA (23:09)
[2023-03-22] MEDS: CHERRY SYRUP 10 ML UDC PO ONE (23:26)
[2023-03-22] MEDS: DEXAMETHASONE 10 MG/ML VIAL PO STA (23:26)
[2023-03-22] MEDS: ONDANSETRON ODT 4 MG TABLET TL STA (23:38)
[2023-03-23] VITALS: BP 151/73; O2SAT 99
== END 2023-03-22 23:45 | disposition home or self-care (01) ==
LOC: EDUNIT# → EDBD → ED 22:29
DX: R21 Rash and other nonspecific skin eruption (principal); F03.90 Unspecified dementia, unspecified severity, without behavioral disturbance, psychotic disturbance, mood disturbance, and anxiety
CPT/HCPCS: 99283; A9270

== ENCOUNTER 2023-03-22 23:52 | Outpatient (CLI) | payer MEDICARE, OTHER, MEDICAID | END 2023-03-22 23:53 | disposition home or self-care (01) | LOC: EMS 23:52 | PROVIDERS: ATTEND Emergency Medicine | DX: F03.90 Unspecified dementia, unspecified severity, without behavioral disturbance, psychotic disturbance, mood disturbance, and anxiety (principal); R41.0 Disorientation, unspecified | CPT/HCPCS: A0425; A0428 ==

== ENCOUNTER 2023-03-23 23:53 | Outpatient (CLI) | payer MEDICARE, OTHER, MEDICAID | END 2023-03-23 23:54 | disposition critical access hospital (66) | LOC: EMS 23:53 | DX: R21 Rash and other nonspecific skin eruption (principal) | CPT/HCPCS: A0425; A0429 ==

== ENCOUNTER 2023-03-24 00:02 | Emergency (ER) | payer MEDICARE, OTHER, MEDICAID ==
[2023-03-24 02:01] LABS: BILIRUBIN,URINE NEGATIVE (NEGATIVE); GLUCOSE, URINE (UA) NEGATIVE (NEGATIVE); KETONES,URINE (UA) NEGATIVE (NEGATIVE); LEUKOCYTE ESTERASE, URINE SMALL (NEGATIVE); NITRITE,URINE POSITIVE (NEGATIVE); OCCULT BLOOD,URINE TRACE-INTA (NEGATIVE); PROTEIN,URINE NEGATIVE (NEGATIVE); UROBILINOGEN,URINE 0.2 (NORMAL) E.U./dL (NORMAL)
[2023-03-24 02:06] LABS: CLARITY,URINE CLEAR (CLEAR)
[2023-03-24 02:20] LABS: BACTERIA,URINE Moderate /HPF (None Seen); SQUAMOUS EPITHELIAL CELL,UR NONE SEEN (<= Few)
--- NOTE | 2023-03-24 02:31 | ED Physician Documentation ---
History of Present Illness - Stated complaint Stated Complaint: RASH/ - Chief complaint Chief Complaint: Allergic Rx - History obtained from History obtained from: Patient, EMS - Additonal information Additional information: The pt is sent from her SNF for CC of "my rash is spreading to my privates". The pt has been seen in our ED recently for an urticarial rash, thought to be secondary to medication reaction, which pt has now stopped taking. The pt has been treated with Benadryl and steroids. Her truncal rash is improved, but she states it stings "down there" when she urinates, so she assumed her rash had spread. No fever. No abd pain. 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: None : None HEENT: None Psych: None Musculoskeletal: Hemiplegia Derm: None - Past Surgical History Past Surgical History: Yes General: Other Ortho: Arthroscopic surgery /DECK MECHANIC: Hysterectomy Neuro: Craniotomy - Present Medications Home Medications: Ambulatory Orders Medication Instructions Recorded Confirmed Albuterol Sulf [Ventolin Hfa 1 - 2 puffs INH Q4HR PRN 03/14/22 03/29/23 Inhaler] Donepezil HCl [Aricept] 10 mg PO QPM 03/14/22 03/29/23 Isosorbide Mononitrate [Isosorbide 60 mg PO DAILY 03/14/22 03/29/23 Mononitrate ER] Potassium Chloride 20 meq PO DAILY 03/14/22 03/29/23 Rivaroxaban [Xarelto] 15 mg PO QDDINNER 03/14/22 03/29/23 minoxidiL [Minoxidil] 2.5 mg PO BID 03/14/22 03/29/23 Aspirin EC [Ecotrin] 81 mg PO DAILY #180 tablet 03/16/22 03/29/23 Atorvastatin [Lipitor] 40 mg PO QPM 05/22/22 03/29/23 Furosemide [Lasix] 20 mg PO BID 05/22/22 03/29/23 Acetaminophen [Tylenol] 650 mg PO Q4HR PRN tab 05/24/22 03/29/23 Losartan Potassium 25 mg PO DAILY 06/29/22 03/29/23 Senna [Senokot] 17.2 mg PO DAILY PRN 06/29/22 03/29/23 Lidocaine Patch 5% [Lidoderm Patch] 1 patch TOP DAILY PRN #10 patch 09/26/22 03/29/23 Bisacodyl Supp [Dulcolax Supp] 10 mg [place] DAILY PRN 11/12/22 03/29/23 Melatonin 3 mg PO HS 11/12/22 03/29/23 Mineral Oil [Mineral Oil Enema] 1 ea RC PRN PRN 11/12/22 03/29/23 Sertraline [Zoloft] 25 mg PO DAILY 11/12/22 03/29/23 polyethylene glycoL 3350 [Miralax] 17 gm PO DAILY PRN 11/12/22 03/29/23 predniSONE [Deltasone] 20 mg PO [id number] #21 tab 03/21/23 03/29/23 Carboxymethylcellulose 1% Opht 2 drops RIGHTEYE TID 03/22/23 03/29/23 [Refresh 1% Ophth Drops] Ketotifen Fumarate [Eye Itch 2 drops RIGHTEYE TID 03/22/23 03/29/23 Relief] LORazepam [Ativan] 0.5 mg PO DAILY PRN 03/22/23 03/29/23 diphenhydrAMINE [Benadryl] 25 mg PO Q6H PRN 03/22/23 03/29/23 hydrOXYzine PAMOATE [Vistaril] 25 mg PO HS PRN #10 03/22/23 03/29/23 traMADol [Ultram] 25 mg PO DAILY PRN 03/22/23 03/29/23 Sulfamethox/Trimeth 800/160 1 each PO BID #14 tablet 03/24/23 03/29/23 [Bactrim Ds 800/160] - Allergies Allergies/Adverse Reactions: Allergies Allergy/AdvReac Type Severity Reaction Status Date / Time aspirin Allergy Unknown Verified 03/29/23 10:36 cortisone Allergy Hives Verified 03/29/23 10:36 gabapentin [From Neurontin] Allergy Rash Verified 03/29/23 10:36 lisinopril Allergy Unknown Verified 03/29/23 10:36 - Social History Does the pt smoke?: No Smoking Status: Never smoker Does the pt drink ETOH?: No Does the pt have substance abuse?: No - Immunizations Immunizations are current?: Yes - POLST Patient has POLST: No PD ED PE NORMAL - Vitals Vital signs reviewed: Yes - General General: No acute distress, Well developed/nourished, Other (Alert, answers questions appropriately.) - HEENT HEENT: Atraumatic, PERRL, Moist mucous membranes - Neck Neck: Supple, no meningeal sign - Cardiac Cardiac: RRR, No murmur - Respiratory Respiratory: No respiratory distress, Clear bilaterally - Abdomen Abdomen: Soft, Non tender, Non distended - Female Female : On Air Host present, Other (No rash. No lesions. No trauma.) - Derm Derm: Normal color, Warm and dry, Other (REsolving truncal urticarial rash, starting at mid abdomen and ascending superiorly from there.) - Extremities Extremities: No deformity, No edema - Neuro Neuro: Alert and oriented X 3 - Psych Psych: Normal mood, Normal affect Results - Vitals Vitals: Oxygen O2 Source Room air - Labs Labs: Microbiology 03/24/23 01:15 Urine Culture - Final Urine,Catheterized Escherichia Coli Laboratory Tests 03/24/23 01:15 Urine Color YELLOW Urine Clarity CLEAR Urine pH 6.0 Ur Specific [place] 1.010 Urine Protein NEGATIVE Urine Glucose (UA) NEGATIVE Urine Ketones NEGATIVE Urine Occult Blood TRACE-INTA Urine Nitrite POSITIVE H Urine Bilirubin NEGATIVE Urine Urobilinogen 0.2 (NORMAL) Ur Leukocyte Esterase SMALL H Urine RBC 6-10 H Urine WBC 11-25 H Ur Squamous Epith Cells NONE SEEN Urine Bacteria Moderate H Ur Microscopic Review INDICATED Urine Culture Comments INDICATED PD Medical Decision Making - ED course Complexity details: reviewed old records, reviewed results, re-evaluated patient, considered differential, d/w patient ED course: The pt was not found to have any external abnormalities on exam, and rash overall had improved. I was concerned the pt may have a UTI. UA was obtained, and found to be positive. Pt was started on abx for this. We have discussed the findings and the usual indications for return. Departure - Departure Disposition: 01 Home, Self Care Clinical Impression: Allergic urticaria UTI (urinary tract infection) Qualifiers: Urinary tract infection type: acute cystitis Hematuria presence: without hematuria Qualified Code(s): N30.00 - Acute cystitis without hematuria Condition: Stable Instructions: ED Urticaria, ED UTI Cystitis Female Prescriptions: Sulfamethox/Trimeth 800/160 [Bactrim Ds 800/160] 1 each PO BID #14 tablet Comments: The reason you are having burning with urination is because you have a urinary tract infection. Your rash looks better today and it has not spread into your pelvic area. Your skin looks normal down there. Please continue the medication for your allergic reaction and continue to work with your primary doctor on a medication to take instead of the gabapentin which caused your own. As far as your urinary tract infection, you have been started on an antibiotic tonight. The prescription for the rest of your antibiotics has been electronically transmitted to the [facility] pharmacy in [place]. Please continue taking your antibiotics tomorrow, and complete the course as directed. Forms: PCP List Discharge Date/Time: 03/24/23 02:55
[2023-03-24] MEDS: SULFAMETH/TRIMETH DS 800/160 MG TABLET PO STA (02:49)
[2023-03-24 02:56] VITALS: BP 139/80; O2SAT 97
== END 2023-03-24 02:55 | disposition home or self-care (01) ==
LOC: EDUNIT# → ED 00:02
DX: L50.0 Allergic urticaria (principal); N30.00 Acute cystitis without hematuria; E11.9 Type 2 diabetes mellitus without complications
CPT/HCPCS: 81001; 87086; 87181; 99283; A9270; 81003

== ENCOUNTER 2023-03-24 02:57 | Outpatient (CLI) | payer MEDICARE, OTHER, MEDICAID | END 2023-03-24 02:58 | disposition home or self-care (01) | LOC: EMS 02:57 | PROVIDERS: ATTEND Emergency Medicine | DX: G30.9 Alzheimer's disease, unspecified (principal); F02.80 Dementia in other diseases classified elsewhere, unspecified severity, without behavioral disturbance, psychotic disturbance, mood disturbance, and anxiety; R41.0 Disorientation, unspecified; N39.0 Urinary tract infection, site not specified | CPT/HCPCS: A0425; A0428 ==

== ENCOUNTER 2023-03-27 16:34 | Outpatient (CLI) | payer MEDICARE, OTHER, MEDICAID | END 2023-03-27 16:35 | disposition critical access hospital (66) | LOC: EMS 16:34 | DX: M79.602 Pain in left arm (principal); R20.2 Paresthesia of skin | CPT/HCPCS: A0425; A0429 ==

== ENCOUNTER 2023-03-27 16:43 | Emergency (ER) | payer MEDICARE, OTHER, MEDICAID ==
[2023-03-27 16:50] VITALS: BP 128/80
--- NOTE | 2023-03-27 16:57 | ED Physician Documentation ---
History of Present Illness - Stated complaint Stated Complaint: LT SIDE TINGLING - Chief complaint Chief Complaint: General - History obtained from History obtained from: Patient, EMS - Additonal information Additional information: 72-year-old woman with history of stroke due to hypercoagulable state, craniotomy and IVC filter presents with tingling of the left hand and leg starting around 10 AM this morning. She is worried she might have a blood clot or stroke. She denies headache. She is on a DOAC, Xarelto per the chart. 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 : None HEENT: None Psych: None Musculoskeletal: Hemiplegia Derm: None - Past Surgical History Past Surgical History: Yes General: Other Ortho: Arthroscopic surgery /CONTACT LENS TECHNICIAN: Hysterectomy Neuro: Craniotomy - Present Medications Home Medications: Ambulatory Orders Medication Instructions Recorded Confirmed Albuterol Sulf [Ventolin Hfa 1 - 2 puffs INH Q4HR PRN 03/14/22 03/24/23 Inhaler] Donepezil HCl [Aricept] 10 mg PO QPM 03/14/22 03/24/23 Isosorbide Mononitrate [Isosorbide 60 mg PO DAILY 03/14/22 03/24/23 Mononitrate ER] Potassium Chloride 20 meq PO DAILY 03/14/22 03/24/23 Rivaroxaban [Xarelto] 20 mg PO QDDINNER 03/14/22 03/24/23 minoxidiL [Minoxidil] 2.5 mg PO BID 03/14/22 03/24/23 Aspirin EC [Ecotrin] 81 mg PO DAILY #180 tablet 03/16/22 03/24/23 Atorvastatin [Lipitor] 40 mg PO QPM 05/22/22 03/24/23 Furosemide [Lasix] 20 mg PO BID 05/22/22 03/24/23 Acetaminophen [Tylenol] 650 mg PO Q4HR PRN tab 05/24/22 03/24/23 Losartan Potassium 25 mg PO DAILY 06/29/22 03/24/23 Senna [Senokot] 17.2 mg PO DAILY PRN 06/29/22 03/24/23 Lidocaine Patch 5% [Lidoderm Patch] 1 patch TOP DAILY PRN #10 patch 09/26/22 03/24/23 Bisacodyl Supp [Dulcolax Supp] 10 mg [place] DAILY PRN 11/12/22 03/24/23 Melatonin 3 mg PO HS 11/12/22 03/24/23 Mineral Oil [Mineral Oil Enema] 1 ea RC PRN PRN 11/12/22 03/24/23 Sertraline [Zoloft] 25 mg PO DAILY 11/12/22 03/24/23 polyethylene glycoL 3350 [Miralax] 17 gm PO DAILY PRN 11/12/22 03/24/23 predniSONE [Deltasone] 20 mg PO [id number] #21 tab 03/21/23 03/24/23 Carboxymethylcellulose 1% Opht 2 drops RIGHTEYE TID 03/22/23 03/24/23 [Refresh 1% Ophth Drops] Ketotifen Fumarate [Eye Itch 2 drops RIGHTEYE TID 03/22/23 03/24/23 Relief] LORazepam [Ativan] 0.5 mg PO DAILY PRN 03/22/23 03/24/23 diphenhydrAMINE [Benadryl] 25 mg PO Q6H PRN 03/22/23 03/24/23 hydrOXYzine PAMOATE [Vistaril] 25 mg PO HS PRN #10 03/22/23 03/24/23 traMADol [Ultram] 25 mg PO DAILY PRN 03/22/23 03/24/23 Sulfamethox/Trimeth 800/160 1 each PO BID #14 tablet 03/24/23 [Bactrim Ds 800/160] - Allergies Allergies/Adverse Reactions: Allergies Allergy/AdvReac Type Severity Reaction Status Date / Time aspirin Allergy Unknown Verified 03/27/23 16:47 cortisone Allergy Hives Verified 03/27/23 16:47 gabapentin [From Neurontin] Allergy Rash Verified 03/27/23 16:47 lisinopril Allergy Unknown Verified 03/27/23 16:47 - Social History Does the pt smoke?: No Smoking Status: Never smoker Does the pt drink ETOH?: No Does the pt have substance abuse?: No - Immunizations Immunizations are current?: Yes - POLST Patient has POLST: No PD ED PE NORMAL - Vitals Vital signs reviewed: Yes - General General: Alert and oriented X 3, No acute distress - HEENT HEENT: EOMI, Other (Right pupil is fixed and dilated from prior cataract, chronic per patient.) - Neck Neck: Supple, no meningeal sign, No bony TTP - Cardiac Cardiac: RRR, No murmur - Respiratory Respiratory: No respiratory distress, Clear bilaterally - Abdomen Abdomen: Non tender - Back Back: No CVA TTP, No spinal TTP - Derm Derm: Normal color, Warm and dry - Extremities Extremities: No edema, No calf tenderness / cord - Neuro Neuro: Alert and oriented X 3, employment consultant 2-12 intact, No motor deficit, No sensory deficit, Normal speech, Other (NIH stroke scale done at 4:50 PM was 1 for decreased sensation in RUE (note that her sx are on the left).) Eye Opening: Spontaneous Motor: Obeys Commands Verbal: Oriented GCS Score: 15 - Psych Psych: Normal mood, Normal affect Results - Vitals Vitals: Vital Signs - 24 hr 03/27/23 16:47 Temperature 36.8 C Heart Rate 88 Respiratory 16 Rate Blood Pressure 128/80 O2 Saturation 98 Oxygen O2 Source Room air - Labs Labs: Laboratory Tests 03/27/23 03/27/23 03/27/23 17:14 17:14 17:14 WBC 8.8 RBC 4.67 Hgb 12.8 Hct 41.1 MCV 88.0 MCH 27.4 MCHC 31.1 L RDW 14.2 Plt Count 252 MPV 10.7 Neut # (Auto) 8.2 H Lymph # (Auto) 0.4 L [place] # (Auto) 0.2 Eos # (Auto) 0.0 Baso # (Auto) 0.0 Absolute Nucleated RBC 0.00 Nucleated RBC % 0.0 PT 12.9 H INR 1.2 Sodium 136 Potassium 4.4 Chloride 106 Carbon Dioxide 24 Anion Gap 6.0 BUN 32 H Creatinine 1.7 H Estimated GFR (MDRD) 29 L Glucose 148 H Calcium 9.1 Total Bilirubin 0.4 AST 22 ALT 15 Alkaline Phosphatase 58 Total Protein 6.8 Albumin 3.7 Globulin 3.1 Albumin/Globulin Ratio 1.2 - Rads (name of study) CT Head Relevant Findings:: Final report received, EMP independent interpretation of te PD Medical Decision Making - ED course ED course: She has a history of stroke and is medically medically managed for this, she is on Xarelto. She presents with some tingling on the left side but no neurologic findings to corresponding to this. She says actually she is a little more numb on the right which is probably from her prior stroke. She has a history of stroke with need for craniotomy in the past. Initially ordered CT and CT angiography. Subsequently we noted that she had a normal CBC, INR, and depressed renal function with a creatinine of 1.7. She does have a history of chronic kidney disease and this is not far from her prior values. I considered whether or not to continue with the angio, given the very minor symptoms and no physical examination findings to correspond with her symptoms, I think large vessel occlusion is exceedingly unlikely and the angiography was canceled. CT was negative, and she is stable for discharge home. Departure - Departure Disposition: 01 Home, Self Care Clinical Impression: History of stroke with residual deficit Condition: Good Record reviewed to determine appropriate education?: Yes Instructions: ED Paraesthesias Comments: There is no evidence of new stroke or bleeding on head CT. Call your doctor to arrange a follow-up appointment, make the next available appointment. In the interim, return anytime if worse or if new symptoms develop. Forms: PCP List
[2023-03-27] MEDS ORDERED: iohexoL-300 100 ML VIAL ONE (17:02)
[2023-03-27 17:17] LABS: BASOPHILS % (AUTO) 0.1 %; HCT - HEMATOCRIT 41.1 % (37.0-47.0); HGB - HEMOGLOBIN 12.8 g/dL (12.0-16.0); LYMPHOCYTES # (AUTO) 0.4 10^3/uL (1.5-3.5); LYMPHOCYTES % (AUTO) 4.6 %; MEAN CORPUSCULAR HEMOGLOBIN 27.4 pg (27.0-31.0); MEAN CORPUSCULAR HGB CONC 31.1 g/dL (32.0-36.0); MEAN PLATELET VOLUME 10.7 fL (7.9-10.8); MONOCYTES # (AUTO) 0.2 10^3/uL (0.0-1.0); NEUTROPHILS # (AUTO) 8.2 10^3/uL (1.5-6.6); PLT - PLATELET COUNT 252 10^3/uL (130-450); RED BLOOD COUNT 4.67 10^6/uL (4.20-5.40); RED CELL DISTRIBUTION WIDTH 14.2 % (12.0-15.0); WHITE BLOOD COUNT 8.8 x10^3/uL (4.8-10.8)
[2023-03-27 17:31] LABS: ALBUMIN 3.7 g/dL (3.2-5.5); ALBUMIN/GLOBULIN RATIO 1.2 (1.0-2.2); BILIRUBIN,TOTAL 0.4 mg/dL (0.2-1.0); CALCIUM 9.1 mg/dL (8.5-10.3); CREATININE 1.7 mg/dL (0.6-1.3); POTASSIUM 4.4 mmol/L (3.5-4.5); TOTAL PROTEIN 6.8 g/dL (6.4-8.9)
[2023-03-27 17:33] LABS: INR 1.2 (0.8-1.2); PT - PROTHROMBIN TIME 12.9 secs (9.9-12.6)
--- NOTE | 2023-03-27 18:23 | CT Report ---
PROCEDURE: Head WO INDICATIONS: left side tingling TECHNIQUE: Noncontrast 4.5 mm thick angled axial sections acquired from the foramen magnum to the vertex. For r adiation dose reduction, the following was used: automated exposure control, adjustment of mA and/or kV according to patient size. COMPARISON: 12/14/2022. Correlation is also made with prior brain MRI, 03/15/2022 FINDINGS: Image quality: There is streak artifact seen through the skull base. CSF spaces: Basal cisterns are patent. No extra-axial fluid collections. Ventricles are normal in size and shape. Brain: Bilateral remote occipital lobe infarctions can be seen. There is a remote infarction seen in volving the right frontal lobe. These findings are similar to the prior. No midline shift. No intrac ranial masses or hemorrhage. Green-white matter interface is normal. Skull and face: Calvarium and visualized facial bones are intact, without suspicious lesions. Sinuses: Visualized sinuses and mastoids are clear. IMPRESSION: No imaging explanation is found for the patient's presenting symptoms. If it would be helpful for clinical management decision making, please consider a dedicated brain MRI for further evaluation (assuming that there is no contraindication). Remote, stable bilateral infarctions are seen. Reviewed by: Frederick Manuel MD on 03/27/2023 5:21 PM [facility] Approved by: Frederick Manuel MD on 03/27/2023 5:21 PM [facility] Station ID: [id number]
[2023-03-27 18:47] VITALS: O2SAT 96
== END 2023-03-27 19:29 | disposition home or self-care (01) ==
LOC: EDUNIT# → ED 16:43
DX: I69.354 Hemiplegia and hemiparesis following cerebral infarction affecting left non-dominant side (principal); Z86.718 Personal history of other venous thrombosis and embolism; I48.91 Unspecified atrial fibrillation; Z79.01 Long term (current) use of anticoagulants; E11.9 Type 2 diabetes mellitus without complications
CPT/HCPCS: 36415; 80053; 85025; 85610; 99284

== ENCOUNTER 2023-03-27 19:30 | Outpatient (CLI) | payer MEDICARE, OTHER, MEDICAID | END 2023-03-27 19:31 | LOC: EMS 19:30 | PROVIDERS: ATTEND Emergency Medicine | DX: R41.0 Disorientation, unspecified (principal); F03.90 Unspecified dementia, unspecified severity, without behavioral disturbance, psychotic disturbance, mood disturbance, and anxiety; R20.0 Anesthesia of skin | CPT/HCPCS: A0425; A0428 ==

== ENCOUNTER 2023-03-29 10:10 | Outpatient (CLI) | payer MEDICARE, OTHER | END 2023-03-29 10:11 | disposition critical access hospital (66) | LOC: EMS 10:10 | DX: R41.82 Altered mental status, unspecified (principal); R20.2 Paresthesia of skin; R20.0 Anesthesia of skin; H57.11 Ocular pain, right eye | CPT/HCPCS: A0425; A0429 ==

== ENCOUNTER 2023-03-29 10:14 | Emergency (ER) | payer MEDICARE, OTHER ==
[2023-03-29 10:35] VITALS: BP 113/52; O2SAT 98
[2023-03-29 11:47] LABS: BASOPHILS % (AUTO) 0.2 %; EOSINOPHILS % (AUTO) 0.1 %; HCT - HEMATOCRIT 43.7 % (37.0-47.0); HGB - HEMOGLOBIN 13.3 g/dL (12.0-16.0); LYMPHOCYTES # (AUTO) 0.6 10^3/uL (1.5-3.5); LYMPHOCYTES % (AUTO) 5.2 %; MEAN CORPUSCULAR HEMOGLOBIN 26.9 pg (27.0-31.0); MEAN CORPUSCULAR HGB CONC 30.4 g/dL (32.0-36.0); MEAN CORPUSCULAR VOLUME 88.3 fL (81.0-99.0); MEAN PLATELET VOLUME 10.8 fL (7.9-10.8); MONOCYTES # (AUTO) 0.3 10^3/uL (0.0-1.0); MONOCYTES % (AUTO) 2.7 %; NEUTROPHILS # (AUTO) 11.1 10^3/uL (1.5-6.6); NEUTROPHILS % (AUTO) 91.4 %; PLT - PLATELET COUNT 232 10^3/uL (130-450); RED BLOOD COUNT 4.95 10^6/uL (4.20-5.40); RED CELL DISTRIBUTION WIDTH 14.6 % (12.0-15.0); WHITE BLOOD COUNT 12.1 x10^3/uL (4.8-10.8)
[2023-03-29 11:57] LABS: BILIRUBIN,URINE NEGATIVE (NEGATIVE); GLUCOSE, URINE (UA) NEGATIVE (NEGATIVE); KETONES,URINE (UA) NEGATIVE (NEGATIVE); LEUKOCYTE ESTERASE, URINE NEGATIVE (NEGATIVE); NITRITE,URINE NEGATIVE (NEGATIVE); OCCULT BLOOD,URINE NEGATIVE (NEGATIVE); PH,URINE 5.5 PH (5.0-7.5); PROTEIN,URINE NEGATIVE (NEGATIVE); UROBILINOGEN,URINE 0.2 (NORMAL) E.U./dL (NORMAL)
[2023-03-29 12:00] LABS: CLARITY,URINE CLEAR (CLEAR)
[2023-03-29 12:09] LABS: ALBUMIN 3.9 g/dL (3.2-5.5); ALBUMIN/GLOBULIN RATIO 1.3 (1.0-2.2); BILIRUBIN,TOTAL 0.3 mg/dL (0.2-1.0); CALCIUM 9.1 mg/dL (8.5-10.3); CREATININE 1.6 mg/dL (0.6-1.3); POTASSIUM 4.2 mmol/L (3.5-4.5)
[2023-03-29] MEDS: SODIUM CHLORIDE 0.9% 1,000 ML IV STA (13:45)
--- NOTE | 2023-03-29 14:02 | ED Physician Documentation ---
History of Present Illness - Stated complaint Stated Complaint: L SIDE NUMBNESS - Chief complaint Chief Complaint: General - History obtained from History obtained from: Patient, EMS - History of Present Illness Timing: Today - Additonal information Additional information: Jesica Sepulveda is a 72-year-old female who has had prior CVA requiring craniotomy leaving her with some right-sided deficit. Today she is complaining some left arm and leg numbness that is transient. She has had prior complaints of similar. She is on Xarelto.She presents today indicating that she is unhappy with where she is living and would like to have more control over her own comings and luis.She has indicated to our nurses here that she called 911 today because she does not want to stay at [facility] because she has a loss of self-control. She states her symptoms of numbness in the left side are resolved. Review of Systems Constitutional: denies: Fever Eyes: denies: Decreased vision Ears: denies: Ear pain Nose: denies: Congestion Throat: denies: Sore throat Cardiac: denies: Chest pain / pressure, Palpitations Respiratory: denies: Dyspnea, Cough GI: denies: Abdominal Pain, Nausea, Vomiting, Constipation, Diarrhea : denies: Dysuria, Frequency Skin: denies: Rash Musculoskeletal: denies: Neck pain, Back pain, Extremity pain Neurologic: reports: Numbness. denies: Generalized weakness, Focal weakness, Difficulty speaking, Altered mental status, Headache, Head injury, LOC PD PAST MEDICAL HISTORY - Past Medical History Cardiovascular: Congestive heart failure, Deep vein thrombosis, Other Respiratory: None Neuro: Alzhiemer's Endocrine/Autoimmune: Type 2 diabetes GI: None FIELD RADIO OPERATOR: None : None HEENT: None Psych: None Musculoskeletal: Hemiplegia Derm: None - Past Surgical History Past Surgical History: Yes General: Other Ortho: Arthroscopic surgery /FIELD RADIO OPERATOR: Hysterectomy Neuro: Craniotomy - Present Medications Home Medications: Ambulatory Orders Medication Instructions Recorded Confirmed Albuterol Sulf [Ventolin Hfa 1 - 2 puffs INH Q4HR PRN 03/14/22 03/29/23 Inhaler] Donepezil HCl [Aricept] 10 mg PO QPM 03/14/22 03/29/23 Isosorbide Mononitrate [Isosorbide 60 mg PO DAILY 03/14/22 03/29/23 Mononitrate ER] Potassium Chloride 20 meq PO DAILY 03/14/22 03/29/23 Rivaroxaban [Xarelto] 15 mg PO QDDINNER 03/14/22 03/29/23 minoxidiL [Minoxidil] 2.5 mg PO BID 03/14/22 03/29/23 Aspirin EC [Ecotrin] 81 mg PO DAILY #180 tablet 03/16/22 03/29/23 Atorvastatin [Lipitor] 40 mg PO QPM 05/22/22 03/29/23 Furosemide [Lasix] 20 mg PO BID 05/22/22 03/29/23 Acetaminophen [Tylenol] 650 mg PO Q4HR PRN tab 05/24/22 03/29/23 Losartan Potassium 25 mg PO DAILY 06/29/22 03/29/23 Senna [Senokot] 17.2 mg PO DAILY PRN 06/29/22 03/29/23 Lidocaine Patch 5% [Lidoderm Patch] 1 patch TOP DAILY PRN #10 patch 09/26/22 03/29/23 Bisacodyl Supp [Dulcolax Supp] 10 mg NE DAILY PRN 11/12/22 03/29/23 Melatonin 3 mg PO HS 11/12/22 03/29/23 Mineral Oil [Mineral Oil Enema] 1 ea RC PRN PRN 11/12/22 03/29/23 Sertraline [Zoloft] 25 mg PO DAILY 11/12/22 03/29/23 polyethylene glycoL 3350 [Miralax] 17 gm PO DAILY PRN 11/12/22 03/29/23 predniSONE [Deltasone] 20 mg PO [id number] #21 tab 03/21/23 03/29/23 Carboxymethylcellulose 1% Opht 2 drops RIGHTEYE TID 03/22/23 03/29/23 [Refresh 1% Ophth Drops] Ketotifen Fumarate [Eye Itch 2 drops RIGHTEYE TID 03/22/23 03/29/23 Relief] LORazepam [Ativan] 0.5 mg PO DAILY PRN 03/22/23 03/29/23 diphenhydrAMINE [Benadryl] 25 mg PO Q6H PRN 03/22/23 03/29/23 hydrOXYzine PAMOATE [Vistaril] 25 mg PO HS PRN #10 03/22/23 03/29/23 traMADol [Ultram] 25 mg PO DAILY PRN 03/22/23 03/29/23 Sulfamethox/Trimeth 800/160 1 each PO BID #14 tablet 03/24/23 03/29/23 [Bactrim Ds 800/160] - Allergies Allergies/Adverse Reactions: Allergies Allergy/AdvReac Type Severity Reaction Status Date / Time aspirin Allergy Unknown Verified 03/29/23 10:36 cortisone Allergy Hives Verified 03/29/23 10:36 gabapentin [From Neurontin] Allergy Rash Verified 03/29/23 10:36 lisinopril Allergy Unknown Verified 03/29/23 10:36 - Social History Does the pt smoke?: No Smoking Status: Never smoker Does the pt drink ETOH?: No Does the pt have substance abuse?: No - Immunizations Immunizations are current?: Yes - POLST Patient has POLST: No PD ED PE NORMAL - Vitals Vital signs reviewed: Yes (Wide pulse pressure) - General General: No acute distress, Well developed/nourished - HEENT HEENT: PERRL, EOMI, Other (dry mucous membranes well healed valerie hole to the left frontal ) - Neck Neck: Supple, no meningeal sign - Cardiac Cardiac: RRR, No murmur - Respiratory Respiratory: No respiratory distress, Clear bilaterally - Abdomen Abdomen: Soft, Non tender - Derm Derm: Normal color, Warm and dry, No rash - Extremities Extremities: No deformity, No edema - Neuro Neuro: Alert and oriented X 3, sole rougher 2-12 intact, No motor deficit, No sensory deficit, Normal speech Eye Opening: Spontaneous Motor: Obeys Commands Verbal: Oriented GCS Score: 15 - Psych Psych: Normal mood, Normal affect Results - Vitals Vitals: Vital Signs - 24 hr 03/29/23 10:26 Temperature 36.3 C L Heart Rate 68 Respiratory 16 Rate Blood Pressure 113/52 L O2 Saturation 98 Oxygen O2 Source Room air - Labs Labs: Laboratory Tests 03/29/23 03/29/23 03/29/23 11:35 11:41 11:41 WBC 12.1 H RBC 4.95 Hgb 13.3 Hct 43.7 MCV 88.3 MCH 26.9 L MCHC 30.4 L RDW 14.6 Plt Count 232 MPV 10.8 Neut # (Auto) 11.1 H Lymph # (Auto) 0.6 L [place] # (Auto) 0.3 Eos # (Auto) 0.0 Baso # (Auto) 0.0 Absolute Nucleated RBC 0.00 Nucleated RBC % 0.0 Sodium 137 Potassium 4.2 Chloride 106 Carbon Dioxide 24 Anion Gap 7.0 BUN 25 H Creatinine 1.6 H Estimated GFR (MDRD) 32 L Glucose 113 H Calcium 9.1 Total Bilirubin 0.3 AST 19 ALT 16 Alkaline Phosphatase 59 Total Protein 7.0 Albumin 3.9 Globulin 3.1 Albumin/Globulin Ratio 1.3 Lipase 154 H Urine Color YELLOW Urine Clarity CLEAR Urine pH 5.5 Ur Specific Mcrae 1.025 Urine Protein NEGATIVE Urine Glucose (UA) NEGATIVE Urine Ketones NEGATIVE Urine Occult Blood NEGATIVE Urine Nitrite NEGATIVE Urine Bilirubin NEGATIVE Urine Urobilinogen 0.2 (NORMAL) Ur Leukocyte Esterase NEGATIVE Ur Microscopic Review NOT INDICATED Urine Culture Comments NOT INDICATED Procedures - IVC sono (time) 1323 Bedside IVC sono: IVC measures (cm) (0.92), IVC collapsed c insp (cm) (complete), Dehydration (est 2 liter deficit) PD Medical Decision Making - ED course Complexity details: reviewed old records, reviewed results, re-evaluated patient, considered differential, d/w patient Reviewed Lab Results: We reviewed a complete blood count showing an elevated white blood count of 12.1 normal hemoglobin hematocrit and platelets chemistries showing a BUN of 25 and a creatinine of 1.6 similar to values the patient has had previously and indicating renal insufficiency electrolytes and liver function are normal urinalysis shows a specific gravity of 1.025 and is otherwise negative. I interpreted these laboratory test to indicate a degree of dehydration associated and consistent with findings on physical examination. ED course: Jesica Sepulveda is a 72-year-old female presents to the emergency department today with complaints of left-sided numbness. She had a negative FAST exam, she was found to be dehydrated on interrogation of the IVC with POCUS and this was confirmed with blood work, wide pulse pressure and specific gravity of the urinalysis. Patient was administered intravenous fluid and had resolution of her symptoms. She indicated to our nursing staff when she arrived that the reason she came to the emergency department was that she does not like where she is living at [facility]. She we did consult social work who has worked out plan for the patient to change her. Domicile and help that she is receiving. Departure - Departure Disposition: 01 Home, Self Care Clinical Impression: Dehydration, TIA (transient ischemic attack) Instructions: ED Dehydration, ED Transient Ischemic Attack Follow-Up: FREDDY RUBIO MD [Physician No Access] - Comments: Jesica, today it looks like the transient numbness you had to the left side of your body is related to dehydration. We were able to provide hydration here in the emergency department. You will need to increase your fluid intake and intake at least 2 quarts per day. You are taking Lasix will which will also dehydrate you and my recommendation is to talk to your primary care doctor about your use of Lasix and potential intermittent use versus chronic use. You do have chronic renal insufficiency and you may have require the Lasix. If this is the case she will need to increase your fluids more substantially. Follow up as suggested by the social media sr strategy manager to work on your retirement living situation. Forms: PCP List Discharge Date/Time: 03/29/23 15:47
== END 2023-03-29 15:47 | disposition home or self-care (01) ==
LOC: EDUNIT# → ED 10:14
DX: G45.9 Transient cerebral ischemic attack, unspecified (principal); E86.0 Dehydration; E11.9 Type 2 diabetes mellitus without complications; Z86.718 Personal history of other venous thrombosis and embolism; Z79.01 Long term (current) use of anticoagulants
CPT/HCPCS: 36415; 80053; 81001; 81003; 83690; 85025; 87086; 96360; 99284

== ENCOUNTER 2023-03-29 15:54 | Outpatient (CLI) | payer MEDICARE, OTHER | END 2023-03-29 15:55 | LOC: EMS 15:54 | PROVIDERS: ATTEND Emergency Medicine | DX: E86.0 Dehydration (principal); G45.9 Transient cerebral ischemic attack, unspecified; R41.0 Disorientation, unspecified | CPT/HCPCS: A0425; A0428 ==

== ENCOUNTER 2023-04-02 08:15 | Outpatient (CLI) | payer MEDICARE, OTHER | END 2023-04-02 08:16 | disposition critical access hospital (66) | LOC: EMS 08:15 | DX: K62.5 Hemorrhage of anus and rectum (principal); R11.10 Vomiting, unspecified | CPT/HCPCS: A0425; A0429 ==

== ENCOUNTER 2023-04-02 08:24 | Inpatient (IN) | payer MEDICARE, OTHER ==
--- NOTE | 2023-04-02 08:35 | ED Physician Documentation ---
PD HPI GI BLEED - Stated complaint Stated Complaint: GI BLEED - Chief complaint Chief Complaint: Abd Pain - History obtained from History obtained from: Patient, EMS, Caregiver (reported info from Care facility through EMS.) - History of Present Illness Timing - onset: Today Timing - details: Abrupt onset (onset just today) Associated symptoms: Vomiting (The patient had an episode of vomiting this morning which was noted to have gale colored to coffee-ground material. Concurrent also had a large bowel movement of dark brick colored stool. [place] w eak and lightheaded but no syncope. Denies abdominal pain.), Hematemesis, Maroon stool. No: Diarrhea, Constipation Contributing factors: Anticoagulated. No: Sick contact, Bad food, Recent antibiotics Similar symptoms before: Has not had sx before PD PAST MEDICAL HISTORY - Past Medical History Past Medical History: Yes Cardiovascular: Congestive heart failure, Deep vein thrombosis, Other Respiratory: None Neuro: Alzhiemer's Endocrine/Autoimmune: Type 2 diabetes GI: None YARD COUPLER: None : None HEENT: None Psych: None Musculoskeletal: Hemiplegia Derm: None - Past Surgical History Past Surgical History: Yes General: Other Ortho: Arthroscopic surgery /YARD COUPLER: Hysterectomy Neuro: Craniotomy - Present Medications Home Medications: Ambulatory Orders Medication Instructions Recorded Confirmed Albuterol Sulf [Ventolin Hfa 1 - 2 puffs INH Q4HR PRN 03/14/22 04/02/23 Inhaler] Donepezil HCl [Aricept] 10 mg PO QPM 03/14/22 04/02/23 Isosorbide Mononitrate [Isosorbide 60 mg PO DAILY 03/14/22 04/02/23 Mononitrate ER] Potassium Chloride 20 meq PO DAILY 03/14/22 04/02/23 Rivaroxaban [Xarelto] 15 mg PO QDDINNER 03/14/22 04/02/23 minoxidiL [Minoxidil] 2.5 mg PO BID 03/14/22 04/02/23 Aspirin EC [Ecotrin] 81 mg PO DAILY #180 tablet 03/16/22 04/02/23 Atorvastatin [Lipitor] 40 mg PO QPM 05/22/22 04/02/23 Furosemide [Lasix] 20 mg PO BID 05/22/22 04/02/23 Acetaminophen [Tylenol] 650 mg PO Q4HR PRN tab 05/24/22 04/02/23 Losartan Potassium 25 mg PO DAILY 06/29/22 04/02/23 Senna [Senokot] 17.2 mg PO DAILY PRN 06/29/22 04/02/23 Lidocaine Patch 5% [Lidoderm Patch] 1 patch TOP DAILY PRN #10 patch 09/26/22 04/02/23 Bisacodyl Supp [Dulcolax Supp] 10 mg DC DAILY PRN 11/12/22 04/02/23 Melatonin 3 mg PO HS PRN 11/12/22 04/02/23 Mineral Oil [Mineral Oil Enema] 1 ea RC PRN PRN 11/12/22 04/02/23 Sertraline [Zoloft] 25 mg PO DAILY 11/12/22 04/02/23 polyethylene glycoL 3350 [Miralax] 17 gm PO DAILY PRN 11/12/22 04/02/23 predniSONE [Deltasone] 20 mg PO [id number] #21 tab 03/21/23 04/02/23 Carboxymethylcellulose 1% Opht 2 drops RIGHTEYE TID 03/22/23 04/02/23 [Refresh 1% Ophth Drops] Ketotifen Fumarate [Eye Itch 2 drops RIGHTEYE TID 03/22/23 04/02/23 Relief] LORazepam [Ativan] 0.5 mg PO DAILY PRN 03/22/23 04/02/23 diphenhydrAMINE [Benadryl] 25 mg PO Q6H PRN 03/22/23 04/02/23 hydrOXYzine PAMOATE [Vistaril] 25 mg PO HS PRN #10 03/22/23 04/02/23 traMADol [Ultram] 25 mg PO DAILY PRN 03/22/23 04/02/23 guaiFENesin [Giltuss Ex] 200 mg PO Q4H PRN 04/02/23 04/02/23 - Allergies Allergies/Adverse Reactions: Allergies Allergy/AdvReac Type Severity Reaction Status Date / Time aspirin Allergy Unknown Verified 04/02/23 08:32 cortisone Allergy Hives Verified 04/02/23 08:32 gabapentin [From Neurontin] Allergy Rash Verified 04/02/23 08:32 lisinopril Allergy Unknown Verified 04/02/23 08:32 - Social History Does the pt smoke?: No Smoking Status: Never smoker Does the pt drink ETOH?: No Does the pt have substance abuse?: No - Immunizations Immunizations are current?: Yes - POLST Patient has POLST: No PD ED PE NORMAL - Vitals Vital signs reviewed: Yes - General General: Alert and oriented X 3, No acute distress, Well developed/nourished - Abdomen Abdomen: Normal bowel sounds, Soft, Non tender, Non distended Results - Vitals Vitals: Vital Signs - 24 hr 04/02/23 04/02/23 04/02/23 08:28 09:01 09:30 Temperature 36.7 C Heart Rate 70 65 93 Respiratory 16 18 18 Rate Blood Pressure 110/44 L 113/51 L 127/57 L O2 Saturation 92 95 99 04/02/23 04/02/23 04/02/23 10:00 10:30 11:00 Temperature 36.2 C L Heart Rate 76 80 64 Respiratory 20 19 14 Rate Blood Pressure 121/73 111/84 H 132/60 H O2 Saturation 97 96 97 04/02/23 11:30 Temperature Heart Rate 72 Respiratory 16 Rate Blood Pressure 125/64 O2 Saturation 99 Oxygen O2 Source Room air - Labs Labs: Microbiology 04/02/23 10:57 Occult Blood - Final Stool Laboratory Tests 04/02/23 04/02/23 04/02/23 08:32 08:32 08:32 WBC 12.5 H RBC 4.35 Hgb 11.9 L Hct 38.6 MCV 88.7 MCH 27.4 MCHC 30.8 L RDW 14.9 Plt Count 221 MPV 11.0 H Neut # (Auto) 9.8 H Lymph # (Auto) 1.7 [place] # (Auto) 0.7 Eos # (Auto) 0.1 Baso # (Auto) 0.0 Absolute Nucleated RBC 0.00 Nucleated RBC % 0.0 PT 13.8 H INR 1.3 H APTT 23.1 L Sodium Potassium Chloride Carbon Dioxide Anion Gap BUN Creatinine Estimated GFR (MDRD) Glucose Calcium Magnesium Total Bilirubin AST ALT Alkaline Phosphatase Total Protein Albumin Globulin Albumin/Globulin Ratio Lipase Blood Type A POSITIVE Blood Type Recheck Antibody Screen NEGATIVE Crossmatch IS Only See Detail 04/02/23 04/02/23 04/02/23 08:32 09:08 10:59 WBC RBC Hgb 11.9 L Hct 40.3 MCV MCH MCHC RDW Plt Count MPV Neut # (Auto) Lymph # (Auto) [place] # (Auto) Eos # (Auto) Baso # (Auto) Absolute Nucleated RBC Nucleated RBC % PT INR APTT Sodium 141 Potassium 4.9 H Chloride 109 Carbon Dioxide 25 Anion Gap 7.0 BUN 50 H Creatinine 1.5 H Estimated GFR (MDRD) 34 L Glucose 107 H Calcium 8.8 Magnesium 1.9 Total Bilirubin 0.6 AST 12 ALT 13 Alkaline Phosphatase 50 Total Protein 6.2 L Albumin 3.5 Globulin 2.7 Albumin/Globulin Ratio 1.3 Lipase 125 H Blood Type Blood Type Recheck A POSITIVE Antibody Screen Crossmatch IS Only - Rads (name of study) abd/pelvic angio Relevant Findings:: Prelim report reviewed (No extravasation of contrast. DIverticulitis noted in sigmoid area. ) PD Medical Decision Making - ED course Complexity details: reviewed results (Abdominal and pelvic angio did not show any extravasating blood. There is diverticulitis noted.), re-evaluated patient (vitals remain stable here. No further vomiting in ED. ), considered differential, d/w patient, d/w quantitative consultant (Surgery Dr. Caba and Hospitalist Dr. Negrete) Reviewed Lab Results: Initial blood count is good at hemoglobin of 11. We will repeated at 2 to 3 hours. Her blood pressure remains normotensive at 1 10-1 20s systolic. Heart rate is under 100. She appears well and is conversant. She was given IV fluids. We initially did type and screen and blood bank because of the apparent degree of bleeding. She had vomited blood but also has bloody stool. Presumed upper GI bleed but in the setting of the CT scan showing diverticulitis, could be coming both places separately. I did talk with the hospitalist as well as general surgery Dr. Caba. The patient will be mated to the hospital. CT showing diverticulitis, so may explain the maroon stools per rectum. However the pt has hematemsis with coffee ground to maroon emesis, having some on lips on arrival to ER. Clearly upper GI bleeding as well, Need to eval for blood count trend. I ordered 2 units RBCs on hold in lab due to concern of abrupt bleeding. Departure - Departure Disposition: 66 [facility] DC/Xfer Clinical Impression: Upper GI bleeding, Anticoagulant long-term use, Acute diverticulitis, Hematemesis, Chronic renal insufficiency Condition: Stable Record reviewed to determine appropriate education?: Yes Discharge Date/Time: 04/02/23 13:38
[2023-04-02 08:47] LABS: BASOPHILS % (AUTO) 0.2 %; EOSINOPHILS # (AUTO) 0.1 10^3/uL (0.0-0.7); HCT - HEMATOCRIT 38.6 % (37.0-47.0); HGB - HEMOGLOBIN 11.9 g/dL (12.0-16.0); LYMPHOCYTES # (AUTO) 1.7 10^3/uL (1.5-3.5); LYMPHOCYTES % (AUTO) 13.7 %; MEAN CORPUSCULAR HEMOGLOBIN 27.4 pg (27.0-31.0); MEAN CORPUSCULAR HGB CONC 30.8 g/dL (32.0-36.0); MEAN CORPUSCULAR VOLUME 88.7 fL (81.0-99.0); MONOCYTES # (AUTO) 0.7 10^3/uL (0.0-1.0); MONOCYTES % (AUTO) 5.9 %; NEUTROPHILS # (AUTO) 9.8 10^3/uL (1.5-6.6); NEUTROPHILS % (AUTO) 78.7 %; PLT - PLATELET COUNT 221 10^3/uL (130-450); RED BLOOD COUNT 4.35 10^6/uL (4.20-5.40); RED CELL DISTRIBUTION WIDTH 14.9 % (12.0-15.0); WHITE BLOOD COUNT 12.5 x10^3/uL (4.8-10.8)
[2023-04-02] MEDS ORDERED: iohexoL-300 100 ML VIAL ONE (08:48)
[2023-04-02] MEDS: SODIUM CHLORIDE 0.9% 1,000 ML IV STA ×2 (08:53→10:17)
[2023-04-02] MEDS: PANTOPRAZOLE 40 MG VIAL IVP STA (08:53)
[2023-04-02] MEDS: ONDANSETRON 4 MG/2 ML VIAL IVP STA (08:54)
[2023-04-02] MEDS: FAMOTIDINE 20 MG/2 ML VIAL IVP STA (08:54)
[2023-04-02 08:57] LABS: PARTIAL THROMBOPLASTIN TIME 23.1 secs (24.9-33.3)
[2023-04-02 09:02] LABS: ALBUMIN 3.5 g/dL (3.2-5.5); ALBUMIN/GLOBULIN RATIO 1.3 (1.0-2.2); BILIRUBIN,TOTAL 0.6 mg/dL (0.2-1.0); CALCIUM 8.8 mg/dL (8.5-10.3); CREATININE 1.5 mg/dL (0.6-1.3); MAGNESIUM 1.9 mg/dL (1.7-2.3); POTASSIUM 4.9 mmol/L (3.5-4.5); TOTAL PROTEIN 6.2 g/dL (6.4-8.9)
[2023-04-02 09:06] LABS: INR 1.3 (0.8-1.2); PT - PROTHROMBIN TIME 13.8 secs (9.9-12.6)
[2023-04-02] MEDS: iohexoL-300 100 ML VIAL IVP ONE (10:45)
[2023-04-02 11:02] LABS: HCT - HEMATOCRIT 40.3 % (37.0-47.0); HGB - HEMOGLOBIN 11.9 g/dL (12.0-16.0)
--- NOTE | 2023-04-02 11:12 | CT Report ---
PROCEDURE: Angio Abdomen/Pelvis INDICATIONS: gi bleed, acute CONTRAST: Omni 300 100ml TECHNIQUE: After the administration of intravenous contrast, 2.5 mm thick sections acquired from the diaphragm t o the symphysis. 10 mm maximum-intensity projection (MIP) reformats were then acquired. For radiati on dose reduction, the following was used: automated exposure control, adjustment of mA and/or kV ac cording to patient size. COMPARISON: CT abdomen pelvis 05/21/2022 FINDINGS: Image quality: Excellent. Aorta: No areas of hemodynamically significant stenosis, vascular occlusion, aneurysmal dilation or dissection. Atherosclerotic wall calcifications are present. Mesenteric arteries: Celiac trunk, superior and inferior mesenteric arteries appear patent. Right pelvic arteries: Patent Left pelvic arteries: Patent Extravascular soft tissues: Minimal thickening is present within the left base. Areas of calcificatio n are present within the pleura which can be related to prior asbestosis exposure.. Heart size is no rmal. Liver and spleen are normal in size and enhancement. Gallbladder demonstrates luminal stones without wall thickening.. Biliary system is non dilated. Pancreas enhances normally. No adrenal no dules. Kidneys are normal in size and enhancement, without hydronephrosis. There is significant thic kening and inflammatory change within the sigmoid and descending colon. Innumerable diverticula are p resent. No visualized perforation or abscess. No free fluid or air. No retroperitoneal or mesenteric adenopathy. No ventral hernias. No suspicious bony lesions. No vertebral body compression fractur es. IMPRESSION: Left colonic colitis most consistent secondary to diverticulitis. Recommend interval follow-up to doc ument resolution and exclude presence of underlying mass lesion. Cholelithiasis. Reviewed by: Jazzy Tee MD on 04/02/2023 11:11 AM PST Approved by: Jazzy Tee MD on 04/02/2023 11:11 AM PST Station ID: [id number]
[2023-04-02] MEDS ORDERED: SODIUM CHLORIDE FLUSH 0.9% 10 ML SYRINGE IVP PRN (11:42)
[2023-04-02] MEDS ORDERED: LORazepam 0.5 MG TABLET PO PRN (11:45)
[2023-04-02] MEDS ORDERED: traMADol 50 MG TABLET PO PRN (11:45)
--- NOTE | 2023-04-02 11:49 | HISTORY & PHYSICAL EXAMINATION ---
Chief Complaint - Chief Complaint Chief Complaint: Vomited blood History of Present Illness - Admitted From Admitted From:: ED - History Obtained From History obtained from: ED provider and the patient - History of Present Illness HPI Comment/Other: This is a 72-year-old female with history of 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 MRI of the brain and CT of the brain confirmed previous bibasilar strokes. She had cognitive deficits, ataxia, weakness and went to live in an assisted living facility. She continues to take Xarelto. She was brought in today from the skilled nursing because she vomited blood and coffee-grounds, and also had a maroon bowel movement. In the ER her workup showed hemoglobin of 11.9, stable vital signs without tachycardia, stool guaiac test was positive. A repeat hemoglobin was done several hours later and remained stable at 11.9. Her abdomen CTA showed no areas of contrast extravasation and was read as having diverticulitis. The ED provider spoke to the General Surgeon who said she would do consultation and EGD. The ED provider then spoke to me on the Hospitalist service to have this patient brought in for evaluating and treating a GI bleed. I spoke to the patient about her CODE BLUE wishes and she wants to be a DNR. History - Past Medical History Cardiovascular: reports: Congestive heart failure, Deep vein thrombosis, Other Respiratory: reports: None Neuro: reports: Alzhiemer's, CVA, TIA Endocrine/Autoimmune: reports: Type 2 diabetes GI: reports: None SIGNALS COLLECTION TECHNICIAN: reports: None : reports: None HEENT: reports: None Psych: reports: None Musculoskeletal: reports: Hemiplegia Derm: reports: None MRSA Hx?: Yes - Past Surgical History General: reports: Other Ortho: reports: Arthroscopic surgery /SIGNALS COLLECTION TECHNICIAN: reports: Hysterectomy Neuro: reports: Craniotomy - Family & Social History Living arrangement: Assisted living Social History Notes: She quit smoking cigarettes 10 years ago. She has 1 bud ktail or glass of wine every Friday at the facility during their weekly Happy Hour. - POLST Patient has POLST: No Meds/Allgy - Home Medications Home Medications: Ambulatory Orders Medication Instructions Recorded Confirmed Albuterol Sulf [Ventolin Hfa 1 - 2 puffs INH Q4HR PRN 03/14/22 04/02/23 Inhaler] Donepezil HCl [Aricept] 10 mg PO QPM 03/14/22 04/02/23 Isosorbide Mononitrate [Isosorbide 60 mg PO DAILY 03/14/22 04/02/23 Mononitrate ER] Potassium Chloride 20 meq PO DAILY 03/14/22 04/02/23 Rivaroxaban [Xarelto] 15 mg PO QDDINNER 03/14/22 04/02/23 minoxidiL [Minoxidil] 2.5 mg PO BID 03/14/22 04/02/23 Aspirin EC [Ecotrin] 81 mg PO DAILY #180 tablet 03/16/22 04/02/23 Atorvastatin [Lipitor] 40 mg PO QPM 05/22/22 04/02/23 Furosemide [Lasix] 20 mg PO BID 05/22/22 04/02/23 Acetaminophen [Tylenol] 650 mg PO Q4HR PRN tab 05/24/22 04/02/23 Losartan Potassium 25 mg PO DAILY 06/29/22 04/02/23 Senna [Senokot] 17.2 mg PO DAILY PRN 06/29/22 04/02/23 Lidocaine Patch 5% [Lidoderm Patch] 1 patch TOP DAILY PRN #10 patch 09/26/22 04/02/23 Bisacodyl Supp [Dulcolax Supp] 10 mg [place] DAILY PRN 11/12/22 04/02/23 Melatonin 3 mg PO HS PRN 11/12/22 04/02/23 Mineral Oil [Mineral Oil Enema] 1 ea RC PRN PRN 11/12/22 04/02/23 Sertraline [Zoloft] 25 mg PO DAILY 11/12/22 04/02/23 polyethylene glycoL 3350 [Miralax] 17 gm PO DAILY PRN 11/12/22 04/02/23 predniSONE [Deltasone] 20 mg PO [id number] #21 tab 03/21/23 04/02/23 Carboxymethylcellulose 1% Opht 2 drops RIGHTEYE TID 03/22/23 04/02/23 [Refresh 1% Ophth Drops] Ketotifen Fumarate [Eye Itch 2 drops RIGHTEYE TID 03/22/23 04/02/23 Relief] LORazepam [Ativan] 0.5 mg PO DAILY PRN 03/22/23 04/02/23 diphenhydrAMINE [Benadryl] 25 mg PO Q6H PRN 03/22/23 04/02/23 hydrOXYzine PAMOATE [Vistaril] 25 mg PO HS PRN #10 03/22/23 04/02/23 traMADol [Ultram] 25 mg PO DAILY PRN 03/22/23 04/02/23 guaiFENesin [Giltuss Ex] 200 mg PO Q4H PRN 04/02/23 04/02/23 - Allergies Allergies/Adverse Reactions: Allergies Allergy/AdvReac Type Severity Reaction Status Date / Time aspirin Allergy Unknown Verified 04/02/23 08:32 cortisone Allergy Hives Verified 04/02/23 08:32 gabapentin [From Neurontin] Allergy Rash Verified 04/02/23 08:32 lisinopril Allergy Unknown Verified 04/02/23 08:32 Review of Systems - Constitutional Constitutional: reports: Weakness - Gastrointestinal Gastrointestinal: reports: Diarrhea (She has had about 4 liquidy black BMs since presenting to the ER), Black stools - All Other Systems All Other Systems: reports: Reviewed and negative Exam - Vital Signs Vital Signs: Vital Signs x48h Temp Pulse Resp BP Pulse Ox 04/02/23 10:30 80 19 111/84 H 96 04/02/23 10:00 76 20 121/73 97 04/02/23 09:30 93 18 127/57 L 99 04/02/23 09:01 65 18 113/51 L 95 04/02/23 08:28 36.7 C 70 16 110/44 L 92 - Physical Exam General Appearance: positive: No acute distress, Alert, Other (Long hair. Disheveled.) Eyes Bilateral: positive: EOMI, No lid inflammation ENT: positive: ENT inspection nml, No signs of dehydration Neck: positive: Nml inspection, No JVD Respiratory: positive: No respiratory distress, Breath sounds nml Cardiovascular: positive: Regular rate & rhythm, No murmur Abdomen: positive: Non-tender, Nml bowel sounds, No distention Skin: positive: Warm, Dry, Pallor Extremities: positive: Non-tender, No pedal edema Neurologic/Psychiatric: positive: Oriented x3, CN's nml (2-12), Motor nml Conclusion/Plan - Problem List (1) Upper GI bleeding Conclusion/Plan: Unfortunately she takes Xarelto which probably promoted GI bleeding. BUN is higher than her usual consistent with a GI bleed Plan: Given her stable hemoglobin and VS, I will place this patient in Observation status, monitoring for a drop in hemoglobin, hypotension or worsening GI bleeding, and if this occurs then will admit to Inpt status Start empiric Protonix IV twice daily General surgery consult for EGD Diet will be n.p.o. except sips and chips and meds Begin low-dose IV fluid to hydrate Follow her hemoglobin every 12-24 hours. Transfuse if hemoglobin drops below 7. She has been typed and screened. (2) Anticoagulant long-term use Conclusion/Plan: Patient is on anticoagulation for her history of hypercoagulability and prior DVT and strokes Plan: Unfortunately Xarelto will be discontinued, she will be without stroke prophylaxis Depending on findings on EGD, we will determine when anticoagulation can be resumed (3) Chronic renal insufficiency Conclusion/Plan: Her creatinine runs 1.4-1.6 and it is in that range now The BUN is more elevated than usual which is consistent with an acute GI bleed Plan: Avoid nephrotoxins Give IV fluid hydration while she is n.p.o. (4) Dementia Conclusion/Plan: As per Hx. She is very interactive, alert and oriented x 3 and is a good historian when I met her. Plan: I will resume her meds for dementia, once her medication list is reconciled by pharmacy Qualifiers: (5) Diverticulitis Conclusion/Plan: Patient also had lower GI bleeding which was reported both as being bloody and also has been black. Her CT abdomen showed she has diverticulitis I spoke to Dr. Bucio of general surgery about this finding. The surgeon wants her to be treated with IV antibiotics and bowel rest Plan: Start IV Zosyn Advancing of diet will be as we advance for the UGI bleed. - Lab Results Fish Bones: 04/03/23 11:03 04/03/23 06:00 - Diagnostic Imaging Results Diagnostic Imaging Results: positive: Final report reviewed
[2023-04-02] MEDS: PIPERACILLIN/TAZOBACTAM 3.375 GM in SODIUM CHLORIDE 0.9% MINIBAG 100 ML IV STA (12:02)
[2023-04-02] MEDS ORDERED: LIDOCAINE PATCH 4% TOP PRN (12:05)
[2023-04-02] MEDS: SODIUM CHLORIDE FLUSH 0.9% 10 ML SYRINGE IVP SCH (16:24)
[2023-04-02] MEDS: SODIUM CHLORIDE 0.9% 1,000 ML IV SCH (16:24)
--- NOTE | 2023-04-02 17:37 | CONSULTATION NOTE ---
Referring Provider Name of Referring Provider:: ED (Bam) Consult Date: 04/02/23 Chief Complaint - Chief Complaint Chief Complaint: "I vomited blood and had a blow out." History of Present Illness - Admitted From Admitted From:: ED - History Obtained From Records Reviewed: yes History obtained from: patient, chart Exam Limitations: patient is poor historian and does not know what medications she takes - History of Present Illness HPI Comment/Other: This is a feisty 72-year-old female with a history of stroke due to hypercoagulability, dementia, diabetes, CHF, and DVT, who presents from her assisted living facility with a 1 day history of hematemesis and melanotic stool. The patient denies any abdominal pain and states she rarely has heartburn. She does not think she takes any medication for heartburn, denies any history of peptic ulcer disease, aspirin use, or NSAID use. She does take Xarelto daily due to her history of protein C&S deficiency, prior after 5 Leiden mutation, and stroke. Since her presentation, her hemoglobin has been stable at 11.9. She is also had a CTA of her abdomen and pelvis which showed no contrast extravasation. She is admitted to the medicine service. At the time of my exam, the patient denies any abdominal pain or nausea. She would very much like to have something to drink. History - Past Medical History Cardiovascular: reports: Congestive heart failure, Deep vein thrombosis, Other Respiratory: reports: None Neuro: reports: Alzhiemer's, CVA, TIA Endocrine/Autoimmune: reports: Type 2 diabetes GI: reports: None STUDENT TEACHER: reports: None : reports: None HEENT: reports: None Psych: reports: None Musculoskeletal: reports: Hemiplegia Derm: reports: None MRSA Hx?: Yes - Past Surgical History General: reports: Other Ortho: reports: Arthroscopic surgery /STUDENT TEACHER: reports: section, Hysterectomy Neuro: reports: Craniotomy - Family & Social History Living arrangement: Assisted living - POLST Patient has POLST: No Meds/Allgy - Home Medications Home Medications: Ambulatory Orders Medication Instructions Recorded Confirmed Albuterol Sulf [Ventolin Hfa 1 - 2 puffs INH Q4HR PRN 03/14/22 04/02/23 Inhaler] Donepezil HCl [Aricept] 10 mg PO QPM 03/14/22 04/02/23 Isosorbide Mononitrate [Isosorbide 60 mg PO DAILY 03/14/22 04/02/23 Mononitrate ER] Potassium Chloride 20 meq PO DAILY 03/14/22 04/02/23 Rivaroxaban [Xarelto] 15 mg PO QDDINNER 03/14/22 04/02/23 minoxidiL [Minoxidil] 2.5 mg PO BID 03/14/22 04/02/23 Aspirin EC [Ecotrin] 81 mg PO DAILY #180 tablet 03/16/22 04/02/23 Atorvastatin [Lipitor] 40 mg PO QPM 05/22/22 04/02/23 Furosemide [Lasix] 20 mg PO BID 05/22/22 04/02/23 Acetaminophen [Tylenol] 650 mg PO Q4HR PRN tab 05/24/22 04/02/23 Losartan Potassium 25 mg PO DAILY 06/29/22 04/02/23 Senna [Senokot] 17.2 mg PO DAILY PRN 06/29/22 04/02/23 Lidocaine Patch 5% [Lidoderm Patch] 1 patch TOP DAILY PRN #10 patch 09/26/22 04/02/23 Bisacodyl Supp [Dulcolax Supp] 10 mg [place] DAILY PRN 11/12/22 04/02/23 Melatonin 3 mg PO HS PRN 11/12/22 04/02/23 Mineral Oil [Mineral Oil Enema] 1 ea RC PRN PRN 11/12/22 04/02/23 Sertraline [Zoloft] 25 mg PO DAILY 11/12/22 04/02/23 polyethylene glycoL 3350 [Miralax] 17 gm PO DAILY PRN 11/12/22 04/02/23 predniSONE [Deltasone] 20 mg PO [id number] #21 tab 03/21/23 04/02/23 Carboxymethylcellulose 1% Opht 2 drops RIGHTEYE TID 03/22/23 04/02/23 [Refresh 1% Ophth Drops] Ketotifen Fumarate [Eye Itch 2 drops RIGHTEYE TID 03/22/23 04/02/23 Relief] LORazepam [Ativan] 0.5 mg PO DAILY PRN 03/22/23 04/02/23 diphenhydrAMINE [Benadryl] 25 mg PO Q6H PRN 03/22/23 04/02/23 hydrOXYzine PAMOATE [Vistaril] 25 mg PO HS PRN #10 03/22/23 04/02/23 traMADol [Ultram] 25 mg PO DAILY PRN 03/22/23 04/02/23 guaiFENesin [Giltuss Ex] 200 mg PO Q4H PRN 04/02/23 04/02/23 - Allergies Allergies/Adverse Reactions: Allergies Allergy/AdvReac Type Severity Reaction Status Date / Time aspirin Allergy Unknown Verified 04/02/23 08:32 cortisone Allergy Hives Verified 04/02/23 08:32 gabapentin [From Neurontin] Allergy Rash Verified 04/02/23 08:32 lisinopril Allergy Unknown Verified 04/02/23 08:32 Review of Systems - Constitutional Constitutional: reports: Other (A complete 10 point review of symptoms is otherwise negative except for that noted in HPI and PMH.) Exam - Vital Signs Vital Signs: Vital Signs x48h Temp Pulse Pulse Resp BP BP Pulse Ox 04/02/23 15:55 36.5 C 50 L 16 119/52 L 94 04/02/23 13:00 36.8 C 77 18 121/53 L 96 04/02/23 12:00 58 L 16 117/58 L 96 04/02/23 11:30 72 16 125/64 99 04/02/23 11:00 36.2 C L 64 14 132/60 H 97 04/02/23 10:30 80 19 111/84 H 96 04/02/23 10:00 76 20 121/73 97 - Physical Exam Comments/Other: GEN: No acute distress, appears stated age, alert and oriented HEENT: NCAT, MMM, EOMI NEURO: CN II-XII grossly intact, no obvious focal deficits CV: RRR PULM: Nonlabored, on room air ABD: soft, non tender to superficial palpation especially in the epigastrium with mild diffuse discomfort with deep palpation, no rebound or guarding CIRCULATORY: no clubbing, cyanosis, or edema SKIN: Multiple bruises on bilateral upper extremities LYMPH: no obvious lymphadenopathy MSK: Decreased strength left upper and lower extremities PSYCH: Affect is appropriate Conclusion and Plan - Lab Results Microbiology Results 04/02/23 10:57 Stool Occult Blood - Final Laboratory Results 04/02/23 17:03: Hgb 9.4 L 04/02/23 10:59: Hgb 11.9 L, Hct 40.3 04/02/23 09:08: Blood Type Recheck A POSITIVE 04/02/23 08:32: Sodium 141, Potassium 4.9 H, Chloride 109, Carbon Dioxide 25, Anion Gap 7.0, BUN 50 H, Creatinine 1.5 H, Estimated GFR (MDRD) 34 L, Glucose 107 H, Calcium 8.8, Magnesium 1.9, Total Bilirubin 0.6, AST 12, ALT 13, Alkaline Phosphatase 50, Total Protein 6.2 L, Albumin 3.5, Globulin 2.7, Albumin/Globulin Ratio 1.3, Lipase 125 H 04/02/23 08:32: PT 13.8 H, INR 1.3 H, APTT 23.1 L 04/02/23 08:32: WBC 12.5 H, RBC 4.35, Hgb 11.9 L, Hct 38.6, MCV 88.7, MCH 27.4, MCHC 30.8 L, RDW 14.9, Plt Count 221, MPV 11.0 H, Neut # (Auto) 9.8 H, Lymph # (Auto) 1.7, [place] # (Auto) 0.7, Eos # (Auto) 0.1, Baso # (Auto) 0.0, Absolute Nucleated RBC 0.00, Nucleated RBC % 0.0 04/02/23 08:32: Blood Type A POSITIVE, Antibody Screen NEGATIVE, Crossmatch IS Only See Detail - Diagnostic Imaging Results Diagnostic Imaging Results: positive: Final report reviewed, Read independently Diagnostic Imaging Results Comments: CTA demonstrates no active extravasation of contrast to indicate the source of GI bleeding. The patient does have thickening of the left colon consistent with diverticulitis. I personally reviewed the images and report from the study. - Consultation Note Consultation Note: This is a 72-year-old lady with: 1. Gastrointestinal bleeding Increased BUN, hematemesis indicate likely upper GI source. The patient's hemoglobin has been stable since presentation and she has no further nausea and has had no episodes of vomiting since presentation. I suspect her bleeding may have stopped. To determine the cause of the patient's bleeding, I do think an upper endoscopy is warranted at this time. Possible etiologies include esophagitis, gastritis, peptic ulcer disease, duodenitis, and and cancer. There are no signs of thickening to indicate a malignant process on her CT scan. We discussed the risks, benefits, and alternatives of the procedure including bleeding and perforation. The patient voiced understanding, her questions were answered, and she wished to proceed. A consent was signed by the patient. - Plan for EGD this evening. The patient will remain n.p.o. until after her procedure. Additional diet and medication recommendations pending the results of her endoscopy. I agree with avoiding NSAID medications and blood thinning medications at this time. The patient has a very significant risk for stroke in the future, after working to mitigate any risk factor she has for repeat bleeding, it is likely in this patient's best interest to restart her home Xarelto. I would like her hemoglobin to be stable for at least 24 hours prior to restarting this medication. 2. Abnormal CT scan The patient has signs of diverticulitis on her CT. She also has some vague abdominal plain in the lower abdomen, and an elevated leukocyte count on admission. -I recommend starting an antibiotic for presumed diverticulitis.Initially, Zosyn may be the best choice. Once the patient is tolerating a diet, Augmentin would be adequate. I recommend a 10-day course. 3. History of stroke, hypercoagulable state, CHF, history of DVT, dementia, hypertension As per the primary team Thank you for consulting me in the care of this patient. Surgery team will continue to follow her closely.
--- NOTE | 2023-04-02 17:56 | ANESTHESIA ---
Pre-Anesthesia VS, & Labs - Diagnosis GI bleed - Procedure EGD Vital Signs: Temp Pulse Resp BP Pulse Ox O2 Flow Rate 36.5 C 50 L 16 119/52 L 94 04/02/23 15:55 04/02/23 15:55 04/02/23 15:55 04/02/23 15:55 04/02/23 15:55 Height: 5 ft 7 in Weight (kg): 85 kg Body Mass Index: 29.3 BMI Classification: Overweight - NPO Other (6 hours npo) - Is Patient ?: No - Lab Results Current Lab Results: Laboratory Tests 04/02/23 17:03: Hgb 9.4 L 04/02/23 10:59: Hgb 11.9 L, Hct 40.3 04/02/23 09:08: Blood Type Recheck A POSITIVE 04/02/23 08:32: Sodium 141, Potassium 4.9 H, Chloride 109, Carbon Dioxide 25, Anion Gap 7.0, BUN 50 H, Creatinine 1.5 H, Estimated GFR (MDRD) 34 L, Glucose 107 H, Calcium 8.8, Magnesium 1.9, Total Bilirubin 0.6, AST 12, ALT 13, Alkaline Phosphatase 50, Total Protein 6.2 L, Albumin 3.5, Globulin 2.7, Albumin/Globulin Ratio 1.3, Lipase 125 H 04/02/23 08:32: PT 13.8 H, INR 1.3 H, APTT 23.1 L 04/02/23 08:32: WBC 12.5 H, RBC 4.35, Hgb 11.9 L, Hct 38.6, MCV 88.7, MCH 27.4, MCHC 30.8 L, RDW 14.9, Plt Count 221, MPV 11.0 H, Neut # (Auto) 9.8 H, Lymph # (Auto) 1.7, [place] # (Auto) 0.7, Eos # (Auto) 0.1, Baso # (Auto) 0.0, Absolute Nucleated RBC 0.00, Nucleated RBC % 0.0 04/02/23 08:32: Blood Type A POSITIVE, Antibody Screen NEGATIVE, Crossmatch IS Only See Detail Fish Bones: 04/02/23 17:03 04/02/23 08:32 Home Medications and Allergies Home Medications: Ambulatory Orders guaiFENesin [Giltuss Ex] 200 mg PO Q4H PRN 04/02/23 Active Medications Acetaminophen (Acetaminophen 325 Mg Tablet) 650 mg PO Q4HR PRN PRN Reason: Pain 1 to 4, or Fever Donepezil HCl (Donepezil 5 Mg Tablet) 10 mg PO QPM [facility] Hydroxyzine Pamoate (Hydroxyzine Pamoate 25 Mg Capsule) 25 mg PO HS PRN PRN Reason: ITCHING Sodium Chloride (Normal Saline 0.9%) 1,000 mls @ 60 mls/hr IV .[id number] [facility] Last Admin: 04/02/23 16:24 Dose: 60 mls/hr Isosorbide Mononitrate (Isosorbide Mononitrate Er 30 Mg Tablet) 60 mg PO DAILY [facility] Lidocaine (Lidocaine Patch 4%) 1 patch TOP DAILY PRN PRN Reason: PAIN 5-7 Lorazepam (Lorazepam 0.5 Mg Tablet) 0.5 mg PO DAILY PRN PRN Reason: Anxiety Pantoprazole Sodium (Pantoprazole 40 Mg Vial) 40 mg IVP BID [facility] Sodium Chloride (Sodium Chloride Flush 0.9% 10 Ml Syringe) 10 ml IVP PRN PRN PRN Reason: NEEDED PER PROVIDER ORDERS Sodium Chloride (Sodium Chloride Flush 0.9% 10 Ml Syringe) 10 ml IVP 0100,[id number],1700 [facility] Last Admin: 04/02/23 16:24 Dose: 10 ml Tramadol HCl (Tramadol 50 Mg Tablet) 25 mg PO DAILY PRN PRN Reason: PAIN >8 Albuterol Sulf [Ventolin Hfa Inhaler] 1 - 2 puffs INH Q4HR PRN 03/14/22 Donepezil HCl [Aricept] 10 mg PO QPM 03/14/22 Isosorbide Mononitrate [Isosorbide Mononitrate ER] 60 mg PO DAILY 03/14/22 Potassium Chloride 20 meq PO DAILY 03/14/22 Rivaroxaban [Xarelto] 15 mg PO QDDINNER 03/14/22 minoxidiL [Minoxidil] 2.5 mg PO BID 03/14/22 Atorvastatin [Lipitor] 40 mg PO QPM 05/22/22 Furosemide [Lasix] 20 mg PO BID 05/22/22 Losartan Potassium 25 mg PO DAILY 06/29/22 Senna [Senokot] 17.2 mg PO DAILY PRN 06/29/22 Bisacodyl Supp [Dulcolax Supp] 10 mg [place] DAILY PRN 11/12/22 Melatonin 3 mg PO HS PRN 11/12/22 Mineral Oil [Mineral Oil Enema] 1 ea RC PRN PRN 11/12/22 Sertraline [Zoloft] 25 mg PO DAILY 11/12/22 polyethylene glycoL 3350 [Miralax] 17 gm PO DAILY PRN 11/12/22 Carboxymethylcellulose 1% Opht [Refresh 1% Ophth Drops] 2 drops RIGHTEYE TID 03/22/23 Ketotifen Fumarate [Eye Itch Relief] 2 drops RIGHTEYE TID 03/22/23 LORazepam [Ativan] 0.5 mg PO DAILY PRN 03/22/23 diphenhydrAMINE [Benadryl] 25 mg PO Q6H PRN 03/22/23 traMADol [Ultram] 25 mg PO DAILY PRN 03/22/23 guaiFENesin [Giltuss Ex] 200 mg PO Q4H PRN 04/02/23 Allergies/Adverse Reactions: Allergies Allergy/AdvReac Type Severity Reaction Status Date / Time aspirin Allergy Unknown Verified 04/02/23 08:32 cortisone Allergy Hives Verified 04/02/23 08:32 gabapentin [From Neurontin] Allergy Rash Verified 04/02/23 08:32 lisinopril Allergy Unknown Verified 04/02/23 08:32 Anes History & Medical History - Anesthetic History Anesthesia Complications: reports: No previous complications - Medical History Cardiovascular: reports: Congestive heart failure, Deep vein thrombosis, Other Pulmonary: reports: None Gastrointestinal: reports: None Urinary: reports: None Neuro: reports: Alzhiemer's, CVA, TIA Musculoskeletal: reports: Hemiplegia Endocrine/Autoimmune: reports: Type 2 diabetes Blood Disorders: reports: None Skin: reports: None Smoking Status: Former smoker - Surgical History General: reports: Other Gynecologic: reports: section, Hysterectomy Neurologic: reports: Craniotomy Orthopedic: reports: Arthroscopic surgery Exam General: Alert, Oriented x3, Cooperative Dental: WNL, Other (edentulous) Mouth Opening: Greater than 4 Fingerbreadths Neck Mobility: Normal Mallampati classification: II Thyromental Distance: greater than 6 cm Respiratory: Lungs clear Cardiovascular: Regular rate Plan Anesthesia Type: Total IV Consent for Procedure(s) Verified and Reviewed: Yes Code Status: Attempt Resuscitation ASA classification: 3-Severe systemic disease Is this case an emergency?: Yes
[2023-04-02] MEDS ORDERED: PROPOFOL 200 MG/20 ML VIAL IVP ONE ×2 (18:09→18:43)
[2023-04-02] MEDS ORDERED: ePHEDrine 50 MG/ML VIAL IVP ONE (18:53)
[2023-04-02] MEDS: LACTATED RINGERS 1,000 ML IV ONE (19:00)
[2023-04-02] MEDS ORDERED: ONDANSETRON 4 MG/2 ML VIAL IVP PRN (19:11)
[2023-04-02] MEDS ORDERED: MORPHINE 2 MG/ML CARPUJECT IVP PRN (19:11)
[2023-04-02] MEDS ORDERED: METOCLOPRAMIDE 10 MG/2 ML VIAL IVP PRN (19:11)
[2023-04-02] MEDS ORDERED: fentaNYL 100 MCG/2 ML VIAL IVP PRN (19:11)
[2023-04-02] MEDS ORDERED: ATROPINE ABBOJECT 1 MG/10 ML SYRINGE IVP PRN (19:11)
[2023-04-02] MEDS ORDERED: NALOXONE 0.4 MG/ML VIAL IVP PRN (19:11)
[2023-04-02] MEDS ORDERED: HYDROmorphone 0.5 MG/0.5 ML SYRINGE IVP PRN (19:11)
[2023-04-02] MEDS ORDERED: ePHEDrine 50 MG/ML VIAL IVP PRN (19:11)
--- NOTE | 2023-04-02 19:11 | ANESTHESIA POST OP EVALUATION ---
Anesthesia Post Eval - Post Anesthesia Eval Vitals: Last Vital Signs Temp 36.1 C L 04/02/23 19:05 Pulse 119 H 04/02/23 19:05 Resp 24 04/02/23 19:05 BP 97/44 L 04/02/23 19:05 Pulse Ox 94 04/02/23 19:05 O2 Flow Rate CV Function Including HR & BP: Stable Pain Control: Satisfactory Nausea & Vomiting: Negative Mental Status: Baseline Respiratory Status: Airway Patent Hydration Status: Satisfactory Anesthesia Complications: None
[2023-04-02] MEDS: PIPERACILLIN/TAZOBACTAM 3.375 GM in SODIUM CHLORIDE 0.9% MINIBAG 100 ML IV SCH (19:33)
[2023-04-02] MEDS ORDERED: LACTATED RINGERS 1,000 ML IV SCH (20:00)
[2023-04-02] MEDS: PANTOPRAZOLE 40 MG VIAL IVP SCH (20:44)
[2023-04-02] MEDS: DONEPEZIL 5 MG TABLET PO SCH (20:44)
[2023-04-03] MEDS: ACETAMINOPHEN 325 MG TABLET PO PRN (01:55)
[2023-04-03 06:16] LABS: HCT - HEMATOCRIT 25.6 % (37.0-47.0); HGB - HEMOGLOBIN 8.1 g/dL (12.0-16.0); MEAN CORPUSCULAR HEMOGLOBIN 28.1 pg (27.0-31.0); MEAN CORPUSCULAR HGB CONC 31.6 g/dL (32.0-36.0); MEAN CORPUSCULAR VOLUME 88.9 fL (81.0-99.0); MEAN PLATELET VOLUME 10.8 fL (7.9-10.8); RED BLOOD COUNT 2.88 10^6/uL (4.20-5.40); WHITE BLOOD COUNT 17.2 x10^3/uL (4.8-10.8)
[2023-04-03 06:31] LABS: CALCIUM 8.3 mg/dL (8.5-10.3); CREATININE 1.4 mg/dL (0.6-1.3); POTASSIUM 3.7 mmol/L (3.5-4.5)
[2023-04-03] MEDS: ISOSORBIDE MONONITRATE ER 30 MG TABLET PO SCH (09:48)
--- NOTE | 2023-04-03 10:01 | PHARMACY PROGRESS NOTE ---
- Best Possible Medication History Admit Date and Time: 04/03/23904 Processed by: Pharmacy Medications reviewed in ED?: Yes Medication History completed: Yes Secondary Source(s): Pharmacy records, Insurance records, Previous admit records As the person ultimately responsible for medication therapy, providers are able to order a medication from an existing home medication list in [facility] via the "Reconcile Routine" prior to Confirmation of that medication by operations support professionals. Such practice is discouraged except when the physician, in their clinical judgment, deems that a medical need exists for a medication without regard to previous use.
--- NOTE | 2023-04-03 12:03 | PROVIDER PROGRESS NOTE ---
Subjective - General Admit Date: 04/03/23 Procedure Date: 04/02/23 Post Op Days: 1 Procedure Performed: EGD with biopsy - Review of Systems All Other Systems: positive: Reviewed and negative - Other Other Information/Narrative: Patient has had two bowel movements since her procedure, the last was much darker. No nausea or vomiting. She denies any abdominal pain. She would very much like to have a grilled cheese sandwich. Objective - Patient Data Reviewed Vital Signs: Yes Vital Signs: Vital Signs x48h Temp Pulse Resp BP BP Pulse Ox 04/03/23 09:00 36.6 C 65 18 163/87 H 92 04/03/23 05:15 36.6 C 96 18 104/56 L 96 Weight: Weight 04/01/23 04/02/23 04/03/23 23:59 23:59 23:59 Weight (kg) 85 kg Intake & Output: Intake and Output Totals x24h 04/01/23 04/02/23 04/03/23 23:59 23:59 23:59 Intake Total 2391 580 Balance 2391 580 - Lab Results Lab Results: 04/03/23 11:03 04/03/23 06:00 Other Lab Results: Lab Results x24hrs 04/03/23 04/03/23 04/03/23 Range/Units 11:03 06:00 06:00 WBC (4.8-10.8) x10^3/uL RBC (4.20-5.40) 10^6/uL Hgb 8.4 L (12.0-16.0) g/dL Hct (37.0-47.0) % MCV (81.0-99.0) fL MCH (27.0-31.0) pg MCHC (32.0-36.0) g/dL RDW (12.0-15.0) % Plt Count (130-450) 10^3/uL MPV (7.9-10.8) fL Sodium 146 H (135-145) mmol/L Potassium 3.7 (3.5-4.5) mmol/L Chloride 117 H (101-111) mmol/L Carbon Dioxide 23 (21-32) mmol/L Anion Gap 6.0 (6-13) BUN 48 H (6-20) mg/dL Creatinine 1.4 H (0.6-1.3) mg/dL Estimated GFR (MDRD) 37 L (>89) Glucose 101 (74-104) mg/dL Calcium 8.3 L (8.5-10.3) mg/dL Blood Type A POSITIVE Antibody Screen NEGATIVE Crossmatch IS Only See Detail 04/03/23 04/02/23 04/02/23 Range/Units 06:00 17:03 08:32 WBC 17.2 H (4.8-10.8) x10^3/uL RBC 2.88 L (4.20-5.40) 10^6/uL Hgb 8.1 L 9.4 L (12.0-16.0) g/dL Hct 25.6 L (37.0-47.0) % MCV 88.9 (81.0-99.0) fL MCH 28.1 (27.0-31.0) pg MCHC 31.6 L (32.0-36.0) g/dL RDW 15.0 (12.0-15.0) % Plt Count 166 (130-450) 10^3/uL MPV 10.8 (7.9-10.8) fL Sodium (135-145) mmol/L Potassium (3.5-4.5) mmol/L Chloride (101-111) mmol/L Carbon Dioxide (21-32) mmol/L Anion Gap (6-13) BUN (6-20) mg/dL Creatinine (0.6-1.3) mg/dL Estimated GFR (MDRD) (>89) Glucose (74-104) mg/dL Calcium (8.5-10.3) mg/dL Blood Type Cancelled Antibody Screen Cancelled Crossmatch IS Only See Detail - Current Medications Current Medications: Current Medications Generic Name Dose Route Start Last Admin Trade Name Freq PRN Reason Stop Dose Admin Acetaminophen 650 mg 04/02/23 11:42 04/03/23 01:55 Acetaminophen 325 Mg Tablet PO 650 mg Q4HR PRN Administration Pain 1 to 4, or Fever Donepezil HCl 10 mg 04/02/23 21:00 04/02/23 20:44 Donepezil 5 Mg Tablet PO 10 mg QPM VENTURA Administration Sodium Chloride 1,000 mls @ 60 mls/hr 04/02/23 12:00 04/03/23 01:53 Normal Saline 0.9% IV 60 mls/hr .[id number] VENTURA Administration Piperacillin Sod/Tazobactam 100 mls @ 25 mls/hr 04/02/23 19:00 04/03/23 11:00 Sod 3.375 gm/ Sodium Chloride IV 25 mls/hr Q8H VENTURA Administration Isosorbide Mononitrate 60 mg 04/03/23 09:00 04/03/23 09:48 Isosorbide Mononitrate Er 30 Mg Tablet PO 60 mg DAILY VENTURA Administration Pantoprazole Sodium 40 mg 04/02/23 21:00 04/03/23 09:47 Pantoprazole 40 Mg Vial IVP 40 mg BID VENTURA Administration Sodium Chloride 10 ml 04/02/23 17:00 04/03/23 09:48 Sodium Chloride Flush 0.9% 10 Ml Syringe IVP 10 ml 0100,0900,1700 VENTURA Administration - Physical Exam General Appearance: positive: No acute distress Eyes Bilateral: positive: Normal inspection, EOMI ENT: positive: No signs of dehydration Neck: positive: Trachea midline Respiratory: positive: No respiratory distress Cardiovascular: positive: Regular rate & rhythm Abdomen: positive: No distention. negative: Tenderness, Guarding, Rebound Skin: positive: No rash Extremities: positive: Non-tender Neurologic/Psychiatric: positive: Oriented x3 Impression/Plan - Problem List Problem List: This is a 72-year-old lady with: 1. Gastrointestinal bleeding s/p EGD with biopsy on 04/02, demonstrated duodenal ulcer, duodenitis, mild gastritis, mild esophagitis. Biopsy results pending. Recommend continuing sips/chips until hgb stable for 12 hours, then adat to clears and sliv when tolerating PO well. When hgb stable for 24 hours, ok to adat to soft diet I agree with avoiding NSAID medications and blood thinning medications at this time. The patient has a very significant risk for stroke in the future, after working to mitigate any risk factor she has for repeat bleeding, it is likely in this patient's best interest to restart her home Xarelto. I would like her hemoglobin to be stable for at least 24-48 hours prior to restarting this medication. 2. Abnormal CT scan The patient has signs of diverticulitis on her CT. She also has some vague abdominal plain in the lower abdomen, and an elevated leukocyte count on admission. -I recommend starting an antibiotic for presumed diverticulitis. Now on zosyn. Once the patient is tolerating a diet, Augmentin would be adequate. I recommend a 10-day course. 3. History of stroke, hypercoagulable state, CHF, history of DVT, dementia, hypertension As per the primary team Thank you for consulting me in the care of this patient. Surgery team will continue to follow her closely.
--- NOTE | 2023-04-03 16:22 | PROVIDER PROGRESS NOTE ---
Assessment/Plan - Problem List (1) Duodenal ulcer Assessment/Plan: Unfortunately she takes Xarelto which probably promoted GI bleeding. BUN is higher than her usual consistent with a GI bleed. Her Xarelto has been on hold since admission. She was taken for an EGD yesterday and Dr. Caba found a duodenal ulcer, it was not bleed at the time She continues to have frequent urges for BMs and has watery black diarrhea. Plan: Given her continued lower GI blood loss (melena), I will admit her from Observation status to Inpt, continue monitoring for a drop in hemoglobin, hypotension or worsening GI bleeding Cont Protonix IV twice daily Diet will be n.p.o. except sips and chips and meds until she has 12 hrs of a stable Hgb, as per my discussion/recommendations from Gen Surgeon Dr Caba today Follow her hemoglobin every 8 hours. Transfuse if hemoglobin drops below 7. She has been typed and crossmatched. Will order PT and OT to start working with her. She will need orthostatic vital signs checked. (2) Anticoagulant long-term use Conclusion/Plan: Patient is on anticoagulation for her history of hypercoagulability and prior DVT and strokes Plan: Unfortunately Xarelto will be discontinued, she will be without stroke prophylaxis for a time. She is aware of no stroke prophylaxis w/out anticoagulants currently Going forward, as we restart anticoagulants, I will put her on Eliquis which has been proven to have a lower rate of GI bleeds then Xarelto. I told the patient this plan and she is in agreement. (3) Diverticulitis Conclusion/Plan: Patient also had lower GI bleeding, since her BMs were reported to be both bl oody and black. Her CT abdomen showed she has diverticulitis I spoke to Dr. Caba of general surgery about this finding. The surgeon wants her to be treated with IV antibiotics and bowel rest Plan: Start IV Zosyn Advancing of diet will be as we advance for the UGI bleed. (4) Chronic renal insufficiency Conclusion/Plan: Her creatinine runs 1.4-1.6 and it is in that range now The BUN is more elevated than usual which is consistent with an acute GI bleed Plan: Avoid nephrotoxins Give IV fluid hydration while she is n.p.o. (5) Dementia Conclusion/Plan: As per Hx. She is very interactive, alert and oriented x 3 and is a good historian when I met her. Plan: I will resume her meds for dementia, once her medication list is reconciled by pharmacy - Current Meds Current Meds: Current Medications Generic Name Dose Route Start Last Admin Trade Name Fregeraldine PRN Reason Stop Dose Admin Acetaminophen 650 mg 04/02/23 11:42 04/03/23 01:55 Acetaminophen 325 Mg Tablet PO 650 mg Q4HR PRN Administration Pain 1 to 4, or Fever Donepezil HCl 10 mg 04/02/23 21:00 04/02/23 20:44 Donepezil 5 Mg Tablet PO 10 mg QPM VENTURA Administration Sodium Chloride 1,000 mls @ 60 mls/hr 04/02/23 12:00 04/03/23 01:53 Normal Saline 0.9% IV 60 mls/hr .[id number] VENTURA Administration Piperacillin Sod/Tazobactam 100 mls @ 25 mls/hr 04/02/23 19:00 04/03/23 15:00 Sod 3.375 gm/ Sodium Chloride IV Infused Q8H VENTURA Infusion Isosorbide Mononitrate 60 mg 04/03/23 09:00 04/03/23 09:48 Isosorbide Mononitrate Er 30 Mg Tablet PO 60 mg DAILY VENTURA Administration Pantoprazole Sodium 40 mg 04/02/23 21:00 04/03/23 09:47 Pantoprazole 40 Mg Vial IVP 40 mg BID VENTURA Administration Sodium Chloride 10 ml 04/02/23 17:00 04/03/23 09:48 Sodium Chloride Flush 0.9% 10 Ml Syringe IVP 10 ml 0100,0900,1700 VENTURA Administration - Lab Result Fish Bone Diagrams: 04/04/23 16:08 04/04/23 05:20 - Additional Planning My Orders: My Active Orders 04/02/23 17:00 Sodium Chloride Flush 0.9% [Normal Saline Flush 0.9%] 10 ml IVP 0100,0900,1700 04/02/23 19:00 Piperacillin/Tazobactam [Zosyn] 3.375 gm Sodium Chloride 0.9% Minibag [Normal Saline 0.9% Minibag] 100 ml IV Q8H 04/02/23 21:00 Donepezil [Aricept] 10 mg PO QPM Pantoprazole [Protonix] 40 mg IVP BID 04/03/23 09:00 Isosorbide Mononitrate ER [Imdur] 60 mg PO DAILY 04/03/23 15:12 Orthostatic [Vital Signs - Orthostatic] [RC] QSHIFT 04/04/23 05:00 BMP - BASIC METABOLIC PANEL [CHEM] DAILYLAB CBC W/O DIFF (HEMOGRAM) [HEME] DAILYLAB Subjective - Subjective Patient Reports: Resting Comfortably, No Complaints (Is hungry, ready to eat and drink) Objective Vital Signs: Vital Signs - 24 hr 04/02/23 04/02/23 04/02/23 19:00 19:05 19:10 Temperature 36.0 C L 36.1 C L 36.2 C L Heart Rate 115 H 119 H 103 H Heart Rate [ Brachial] Respiratory 17 24 19 Rate Blood Pressure 97/55 L 97/44 L 100/51 L Blood Pressure [Left Brachial artery] Blood Pressure [Right Brachial artery] O2 Saturation 95 94 96 04/02/23 04/02/23 04/02/23 19:20 19:31 20:02 Temperature 36.7 C 36.5 C Heart Rate 97 Heart Rate [ 65 77 Brachial] Respiratory 19 18 14 Rate Blood Pressure 108/53 L Blood Pressure [Left Brachial artery] Blood Pressure 109/54 L 111/49 L [Right Brachial artery] O2 Saturation 95 95 93 04/03/23 04/03/23 04/03/23 00:52 05:15 09:00 Temperature 36.9 C 36.6 C 36.6 C Heart Rate Heart Rate [ 98 96 65 Brachial] Respiratory 20 18 18 Rate Blood Pressure Blood Pressure 163/87 H [Left Brachial artery] Blood Pressure 104/51 L 104/56 L [Right Brachial artery] O2 Saturation 100 96 92 04/03/23 13:00 Temperature 36.6 C Heart Rate Heart Rate [ 75 Brachial] Respiratory 20 Rate Blood Pressure Blood Pressure 160/74 H [Left Brachial artery] Blood Pressure [Right Brachial artery] O2 Saturation 94 Oxygen O2 Source Room air I&O (Last 24 Hrs): Intake and Output Totals x24h 04/01/23 04/02/23 04/03/23 23:59 23:59 23:59 Intake Total 2391 680 Balance 2391 680 General: Alert, Oriented x3, Other (Pale) HEENT: Mucous membr. moist/pink, Other (Pale) Neck: Supple Neuro: Alert, Non Focal, Other (Poor memory) Cardiovascular: Regular rate Respiratory: No respiratory distress Abdomen: Normal bowel sounds, Soft, No tenderness Extremities: No edema, No tenderness/swelling - Results Results: Laboratory Results WBC 17.2 x10^3/uL (4.8-10.8) H 04/03/23 06:00 RBC 2.88 10^6/uL (4.20-5.40) L 04/03/23 06:00 Hgb 8.4 g/dL (12.0-16.0) L 04/03/23 11:03 Hct 25.6 % (37.0-47.0) L 04/03/23 06:00 MCV 88.9 fL (81.0-99.0) 04/03/23 06:00 MCH 28.1 pg (27.0-31.0) 04/03/23 06:00 MCHC 31.6 g/dL (32.0-36.0) L 04/03/23 06:00 RDW 15.0 % (12.0-15.0) 04/03/23 06:00 Plt Count 166 10^3/uL (130-450) 04/03/23 06:00 MPV 10.8 fL (7.9-10.8) 04/03/23 06:00 Neut # (Auto) 9.8 10^3/uL (1.5-6.6) H 04/02/23 08:32 Lymph # (Auto) 1.7 10^3/uL (1.5-3.5) 04/02/23 08:32 [place] # (Auto) 0.7 10^3/uL (0.0-1.0) 04/02/23 08:32 Eos # (Auto) 0.1 10^3/uL (0.0-0.7) 04/02/23 08:32 Baso # (Auto) 0.0 10^3/uL (0.0-0.1) 04/02/23 08:32 Absolute Nucleated RBC 0.00 x10^3/uL 04/02/23 08:32 Nucleated RBC % 0.0 /100WBC 04/02/23 08:32 PT 13.8 secs (9.9-12.6) H 04/02/23 08:32 INR 1.3 (0.8-1.2) H 04/02/23 08:32 APTT 23.1 secs (24.9-33.3) L 04/02/23 08:32 Sodium 146 mmol/L (135-145) H 04/03/23 06:00 Potassium 3.7 mmol/L (3.5-4.5) 04/03/23 06:00 Chloride 117 mmol/L (101-111) H 04/03/23 06:00 Carbon Dioxide 23 mmol/L (21-32) 04/03/23 06:00 Anion Gap 6.0 (6-13) 04/03/23 06:00 BUN 48 mg/dL (6-20) H 04/03/23 06:00 Creatinine 1.4 mg/dL (0.6-1.3) H 04/03/23 06:00 Estimated GFR (MDRD) 37 (>89) L 04/03/23 06:00 Glucose 101 mg/dL (74-104) 04/03/23 06:00 Calcium 8.3 mg/dL (8.5-10.3) L 04/03/23 06:00 Magnesium 1.9 mg/dL (1.7-2.3) 04/02/23 08:32 Total Bilirubin 0.6 mg/dL (0.2-1.0) 04/02/23 08:32 AST 12 IU/L (10-42) 04/02/23 08:32 ALT 13 IU/L (10-60) 04/02/23 08:32 Alkaline Phosphatase 50 IU/L (42-121) 04/02/23 08:32 Total Protein 6.2 g/dL (6.4-8.9) L 04/02/23 08:32 Albumin 3.5 g/dL (3.2-5.5) 04/02/23 08:32 Globulin 2.7 g/dL (2.1-4.2) 04/02/23 08:32 Albumin/Globulin Ratio 1.3 (1.0-2.2) 04/02/23 08:32 Lipase 125 U/L (11-82) H 04/02/23 08:32 Blood Type A POSITIVE 04/03/23 06:00 Blood Type Recheck A POSITIVE 04/02/23 09:08 Antibody Screen NEGATIVE 04/03/23 06:00 Crossmatch IS Only See Detail 04/03/23 06:00
[2023-04-04] MEDS: ZINC OXIDE 20% OINT 30 GM TUBE TOP PRN (00:14)
[2023-04-04 05:39] LABS: MEAN CORPUSCULAR HEMOGLOBIN 27.5 pg (27.0-31.0); MEAN CORPUSCULAR HGB CONC 29.5 g/dL (32.0-36.0); MEAN CORPUSCULAR VOLUME 93.2 fL (81.0-99.0); RED BLOOD COUNT 2.36 10^6/uL (4.20-5.40); RED CELL DISTRIBUTION WIDTH 15.5 % (12.0-15.0); WHITE BLOOD COUNT 9.2 x10^3/uL (4.8-10.8)
[2023-04-04 05:43] LABS: MEAN PLATELET VOLUME 11.2 fL (7.9-10.8)
[2023-04-04 05:44] LABS: HGB - HEMOGLOBIN 6.5 g/dL (12.0-16.0)
[2023-04-04 05:55] LABS: CALCIUM 8.1 mg/dL (8.5-10.3); CREATININE 1.3 mg/dL (0.6-1.3); POTASSIUM 3.5 mmol/L (3.5-4.5)
--- NOTE | 2023-04-04 14:40 | PROVIDER PROGRESS NOTE ---
Subjective - General Admit Date: 04/03/23 Procedure Date: 04/02/23 Post Op Days: 2 Procedure Performed: EGD with biopsy - Review of Systems Wound/Incisions: positive: Other (None.) General: positive: Weakness (No worse than previously.) Gastrointestinal: positive: No symptoms Skin: positive: Pallor All Other Systems: positive: Reviewed and negative Objective - Patient Data Reviewed Vital Signs: Yes Vital Signs: Vital Signs x48h Temp Pulse Resp BP BP Pulse Ox 04/04/23 13:00 36.8 C 75 16 115/52 L 98 04/04/23 11:16 36.7 C 68 14 137/62 H 93 04/04/23 08:39 36.7 C 81 14 145/80 H 93 04/04/23 08:22 36.5 C 94 18 144/75 H 98 04/04/23 08:19 36.5 C 94 14 144/75 H 98 Weight: Weight 04/02/23 04/03/23 04/04/23 23:59 23:59 23:59 Weight (kg) 85 kg Intake & Output: Intake and Output Totals x24h 04/02/23 04/03/23 04/04/23 23:59 23:59 23:59 Intake Total 2391 3330 2720 Balance 2391 3330 2720 - Lab Results Lab Results: 04/04/23 13:33 04/04/23 05:20 Other Lab Results: Lab Results x24hrs 04/04/23 04/04/23 04/04/23 Range/Units 13:33 05:20 05:20 WBC 9.2 (4.8-10.8) x10^3/uL RBC 2.36 L (4.20-5.40) 10^6/uL Hgb 7.2 L 6.5 L* (12.0-16.0) g/dL Hct 22.0 L (37.0-47.0) % MCV 93.2 (81.0-99.0) fL MCH 27.5 (27.0-31.0) pg MCHC 29.5 L (32.0-36.0) g/dL RDW 15.5 H (12.0-15.0) % Plt Count 122 L (130-450) 10^3/uL MPV 11.2 H (7.9-10.8) fL Sodium 142 (135-145) mmol/L Potassium 3.5 (3.5-4.5) mmol/L Chloride 115 H (101-111) mmol/L Carbon Dioxide 23 (21-32) mmol/L Anion Gap 4.0 L (6-13) BUN 27 H (6-20) mg/dL Creatinine 1.3 (0.6-1.3) mg/dL Estimated GFR (MDRD) 40 L (>89) Glucose 90 (74-104) mg/dL Calcium 8.1 L (8.5-10.3) mg/dL Blood Type Antibody Screen Crossmatch IS Only 04/03/23 04/03/23 04/03/23 Range/Units 22:33 16:12 06:00 WBC (4.8-10.8) x10^3/uL RBC (4.20-5.40) 10^6/uL Hgb 7.4 L 8.0 L (12.0-16.0) g/dL Hct (37.0-47.0) % MCV (81.0-99.0) fL MCH (27.0-31.0) pg MCHC (32.0-36.0) g/dL RDW (12.0-15.0) % Plt Count (130-450) 10^3/uL MPV (7.9-10.8) fL Sodium (135-145) mmol/L Potassium (3.5-4.5) mmol/L Chloride (101-111) mmol/L Carbon Dioxide (21-32) mmol/L Anion Gap (6-13) BUN (6-20) mg/dL Creatinine (0.6-1.3) mg/dL Estimated GFR (MDRD) (>89) Glucose (74-104) mg/dL Calcium (8.5-10.3) mg/dL Blood Type A POSITIVE Antibody Screen NEGATIVE Crossmatch IS Only See Detail - Current Medications Current Medications: Current Medications Generic Name Dose Route Start Last Admin Trade Name Freq PRN Reason Stop Dose Admin Acetaminophen 650 mg 04/02/23 11:42 04/04/23 00:36 Acetaminophen 325 Mg Tablet PO 650 mg Q4HR PRN Administration Pain 1 to 4, or Fever Donepezil HCl 10 mg 04/02/23 21:00 04/03/23 20:04 Donepezil 5 Mg Tablet PO 10 mg QPM V[facility]URA Administration Sodium Chloride 1,000 mls @ 60 mls/hr 04/02/23 12:00 04/04/23 13:13 Normal Saline 0.9% IV Infused .[id number] V[facility]URA Infusion Piperacillin Sod/Tazobactam 100 mls @ 25 mls/hr 04/02/23 19:00 04/04/23 10:53 Sod 3.375 gm/ Sodium Chloride IV 25 mls/hr Q8H VENTURA Administration Isosorbide Mononitrate 60 mg 04/03/23 09:00 04/04/23 08:12 Isosorbide Mononitrate Er 30 Mg Tablet PO 60 mg DAILY VENTURA Administration Multi-Ingredient Ointment 1 applic 04/03/23 22:36 04/04/23 00:14 Zinc Oxide 20% Oint 30 Gm Tube TOP 1 applic PRN PRN Administration Skin Care Pantoprazole Sodium 40 mg 04/02/23 21:00 04/04/23 08:12 Pantoprazole 40 Mg Vial IVP 40 mg BID VENTURA Administration Sodium Chloride 10 ml 04/02/23 17:00 04/04/23 08:13 Sodium Chloride Flush 0.9% 10 Ml Syringe IVP 10 ml 0100,0900,1700 VENTURA Administration - Physical Exam Wound/Incisions: positive: Other (None.) General Appearance: positive: No acute distress Eyes Bilateral: positive: No lid inflammation, Conjunctivae nml, No scleral icterus Neck: positive: Trachea midline Respiratory: positive: Chest non-tender, No respiratory distress, Breath sounds nml Cardiovascular: positive: Regular rate & rhythm Abdomen: positive: Non-tender Neurologic/Psychiatric: positive: Oriented x3, Motor nml, Sensation nml, Mood/affect nml ABX Reporting Has patient been on IV antibiotics over the past 48 hours?: Yes Impression/Plan - Problem List Problem List: This is a 72-year-old lady with: A upper GI bleed due to a duodenal ulcer documented by Dr. Caba during the EGD performed 04/02/2023. There was also evidence of irritation to the remaining areas of the GI tract visualized. This patient is at high risk of re-bleed due to the history of PUD, history (past) of smoking, use of a Factor Xa inhibitor, use of aspirin in conjunction with a Factor Xa inhibitor, and history of CHF but she is at HIGHER risk of stroke/cardiovascular event due to her coagulopathy. Studies have shown that Eliquis has a near 30% lower risk of GI bleed than the other Factor Xa inhibitors and should be prescribed for this patient to minimize her risk of re-bleed. If the aspirin could be stopped this should be considered but this is the "classic rock and a hard place discussion" - prevent a thromboembolic event OR prevent repeat GI bleed. She should be on lifelong PPI and I would add Carafate now as an additional layer to help with healing (consider discontinuation of the Carafate when the ulcer is healed). There is no complication of PPI use that would surpass the risk of thromboembolic event or repeat GI bleed. She has received a unit of blood and should receive another. Her bowel movements and labs indicate that the bleeding may have stopped. She is a very poor surgical candidate. I have read Dr. Shah's note and am in agreement. We will defer to our hospitalist colleagues to treatment of her remaining co-morbidities. We are appreciative of the opportunity to participate in this patient's care and will continue to follow as long as we can help.
[2023-04-04] MEDS: SUCRALFATE 1 GM/10 ML UDC PO SCH (16:54)
--- NOTE | 2023-04-04 17:16 | PROVIDER PROGRESS NOTE ---
Assessment/Plan - Problem List (1) Duodenal ulcer Assessment/Plan: Unfortunately she took Xarelto which probably promoted GI bleeding. BUN at adm was higher than her usual, consistent with a GI bleed. Her Xarelto has been on hold since admission. She was taken for an EGD and Dr. Caba found a duodenal ulcer, it was not bleed at the time She had continues frequent urges for BMs and had watery black diarrhea after the EGD so I admitted her from Obs to INpt status. Plan: Continue monitoring for a drop in hemoglobin, hypotension or recurrent GI bleeding Cont Protonix IV twice daily Diet was advanced from ice chips to clear liquids last night. She is tolerating that. There have been very few black BMs today. I will advance diet to minced and moist by dinnertime today (2) Anemia due to GI blood loss Her hemoglobin dropped to 6.5 today (all labs were reviewed) Plan: Will order 1 unit of blood for transfusion this morning Continue IV Protonix twice daily for treating the ulcer Continue empiric IV Zosyn for diverticulitis Follow her hemoglobin every 8 hours. Transfuse if hemoglobin drops below 7. She has been typed and crossmatched. Will order PT and OT to start working with her. She will need orthostatic vital signs checked. (3) Diverticulitis Conclusion/Plan: Patient also had lower GI bleeding, since her BMs were reported to be both bloody and black. Her CT abdomen showed she has diverticulitis Cont IV antibiotics and easily digestible diet Plan: Cont IV Zosyn Advancing of diet will be as we advanced as for the UGI bleed. (4) Anticoagulant long-term use Conclusion/Plan: Patient is on anticoagulation for her history of hypercoagulability and prior DVT and strokes Plan: Unfortunately Xarelto will be discontinued, she will be without stroke prophylaxis for a time. She is aware of no stroke prophylaxis w/out anticoagulants currently. As per the general surgeon's note, about 2 to 4 days to remain off anticoagulants. Today is Day 3. Going forward, as we restart anticoagulants, I will put her on Eliquis which has been proven to have a lower rate of GI bleeds then Xarelto. I Discussed this with Dr. Louis of General Surgery today and he is in agreement. (5) Chronic renal insufficiency Conclusion/Plan: Her creatinine runs 1.4-1.6 and it is in that range now The BUN is more elevated than usual which is consistent with an acute GI bleed Plan: Avoid nephrotoxins I will start to taper down her IV fluid date, since she is drinking clear liquids well (6) Dementia Conclusion/Plan: As per Hx. She is very interactive, alert and oriented x 3 and is a good historian when I met her. Plan: Continue her usual Aricept - Current Meds Current Meds: Current Medications Generic Name Dose Route Start Last Admin Trade Name Freq PRN Reason Stop Dose Admin Acetaminophen 650 mg 04/02/23 11:42 04/04/23 00:36 Acetaminophen 325 Mg Tablet PO 650 mg Q4HR PRN Administration Pain 1 to 4, or Fever Donepezil HCl 10 mg 04/02/23 21:00 04/03/23 20:04 Donepezil 5 Mg Tablet PO 10 mg QPM VENTURA Administration Sodium Chloride 1,000 mls @ 60 mls/hr 04/02/23 12:00 04/04/23 15:01 Normal Saline 0.9% IV 60 mls/hr .[id number] VENTURA Administration Piperacillin Sod/Tazobactam 100 mls @ 25 mls/hr 04/02/23 19:00 04/04/23 14:58 Sod 3.375 gm/ Sodium Chloride IV Infused Q8H VENTURA Infusion Isosorbide Mononitrate 60 mg 04/03/23 09:00 04/04/23 08:12 Isosorbide Mononitrate Er 30 Mg Tablet PO 60 mg DAILY VENTURA Administration Multi-Ingredient Ointment 1 applic 04/03/23 22:36 04/04/23 00:14 Zinc Oxide 20% Oint 30 Gm Tube TOP 1 applic PRN PRN Administration Skin Care Pantoprazole Sodium 40 mg 04/02/23 21:00 04/04/23 08:12 Pantoprazole 40 Mg Vial IVP 40 mg BID VENTURA Administration Sodium Chloride 10 ml 04/02/23 17:00 04/04/23 16:54 Sodium Chloride Flush 0.9% 10 Ml Syringe IVP Not Given 0100,0900,1700 VENTURA Sucralfate 1 gm 04/04/23 16:00 04/04/23 16:54 Sucralfate 1 Gm/10 Ml Udc PO 1 gm 0700,1100,1600,2200 VENTURA Administration - Lab Result Fish Bone Diagrams: 04/04/23 16:08 04/04/23 05:20 - Additional Planning My Orders: My Active Orders 04/03/23 22:35 Cod Liver Oil/Zinc Oxide [Desitin] 113 gm TOP PRN PRN 04/03/23 22:36 Zinc Oxide 20% Oint [Zinc Oxide] 1 applic TOP PRN PRN 04/04/23 13:34 Miscellaenous Nursing Order [RC] QSHIFT 04/04/23 Dinner DIET [Dysphagia - Minced and Moist] [DIET] 04/04/23 16:47 Transfuse RBCs Leukoreduced [RC] .ONCE Subjective - Subjective Patient Reports: Resting Comfortably, No Complaints Objective Vital Signs: Vital Signs - 24 hr 04/03/23 04/04/23 04/04/23 19:32 00:11 04:57 Temperature 36.8 C 36.7 C Heart Rate [ 62 73 Brachial] Respiratory 16 16 Rate Blood Pressure 132/79 H 122/69 [Left Brachial artery] Blood Pressure 114/42 L [Right Brachial artery] O2 Saturation 100 97 If not protocol : Oxygen Flow, liters/minute 04/04/23 04/04/23 04/04/23 08:19 08:22 08:39 Temperature 36.5 C 36.5 C 36.7 C Heart Rate [ 94 94 81 Brachial] Respiratory 14 18 14 Rate Blood Pressure 144/75 H 144/75 H 145/80 H [Left Brachial artery] Blood Pressure [Right Brachial artery] O2 Saturation 98 98 93 If not protocol : Oxygen Flow, liters/minute 04/04/23 04/04/23 04/04/23 11:16 13:00 16:59 Temperature 36.7 C 36.8 C 36.7 C Heart Rate [ 68 75 55 L Brachial] Respiratory 14 16 16 Rate Blood Pressure 137/62 H [Left Brachial artery] Blood Pressure 115/52 L 134/84 H [Right Brachial artery] O2 Saturation 93 98 18 L If not protocol 96 : Oxygen Flow, liters/minute Oxygen O2 Source Room air I&O (Last 24 Hrs): Intake and Output Totals x24h 04/02/23 04/03/23 04/04/23 23:59 23:59 23:59 Intake Total 2391 3330 3060 Balance 2391 3330 3060 General: Alert, Oriented x3 HEENT: Mucous membr. moist/pink, Other (Pale) Neck: Supple, No JVD Neuro: Alert, Non Focal, Other (Poor memory) Cardiovascular: Regular rate Respiratory: No respiratory distress Abdomen: Normal bowel sounds, Soft, No tenderness Extremities: No edema, No tenderness/swelling - Results Results: Laboratory Results WBC 9.2 x10^3/uL (4.8-10.8) 04/04/23 05:20 RBC 2.36 10^6/uL (4.20-5.40) L 04/04/23 05:20 Hgb 7.7 g/dL (12.0-16.0) L 04/04/23 16:08 Hct 22.0 % (37.0-47.0) L 04/04/23 05:20 MCV 93.2 fL (81.0-99.0) 04/04/23 05:20 MCH 27.5 pg (27.0-31.0) 04/04/23 05:20 MCHC 29.5 g/dL (32.0-36.0) L 04/04/23 05:20 RDW 15.5 % (12.0-15.0) H 04/04/23 05:20 Plt Count 122 10^3/uL (130-450) L 04/04/23 05:20 MPV 11.2 fL (7.9-10.8) H 04/04/23 05:20 Neut # (Auto) 9.8 10^3/uL (1.5-6.6) H 04/02/23 08:32 Lymph # (Auto) 1.7 10^3/uL (1.5-3.5) 04/02/23 08:32 [place] # (Auto) 0.7 10^3/uL (0.0-1.0) 04/02/23 08:32 Eos # (Auto) 0.1 10^3/uL (0.0-0.7) 04/02/23 08:32 Baso # (Auto) 0.0 10^3/uL (0.0-0.1) 04/02/23 08:32 Absolute Nucleated RBC 0.00 x10^3/uL 04/02/23 08:32 Nucleated RBC % 0.0 /100WBC 04/02/23 08:32 PT 13.8 secs (9.9-12.6) H 04/02/23 08:32 INR 1.3 (0.8-1.2) H 04/02/23 08:32 APTT 23.1 secs (24.9-33.3) L 04/02/23 08:32 Sodium 142 mmol/L (135-145) 04/04/23 05:20 Potassium 3.5 mmol/L (3.5-4.5) 04/04/23 05:20 Chloride 115 mmol/L (101-111) H 04/04/23 05:20 Carbon Dioxide 23 mmol/L (21-32) 04/04/23 05:20 Anion Gap 4.0 (6-13) L 04/04/23 05:20 BUN 27 mg/dL (6-20) H 04/04/23 05:20 Creatinine 1.3 mg/dL (0.6-1.3) 04/04/23 05:20 Estimated GFR (MDRD) 40 (>89) L 04/04/23 05:20 Glucose 90 mg/dL (74-104) 04/04/23 05:20 Calcium 8.1 mg/dL (8.5-10.3) L 04/04/23 05:20 Magnesium 1.9 mg/dL (1.7-2.3) 04/02/23 08:32 Total Bilirubin 0.6 mg/dL (0.2-1.0) 04/02/23 08:32 AST 12 IU/L (10-42) 04/02/23 08:32 ALT 13 IU/L (10-60) 04/02/23 08:32 Alkaline Phosphatase 50 IU/L (42-121) 04/02/23 08:32 Total Protein 6.2 g/dL (6.4-8.9) L 04/02/23 08:32 Albumin 3.5 g/dL (3.2-5.5) 04/02/23 08:32 Globulin 2.7 g/dL (2.1-4.2) 04/02/23 08:32 Albumin/Globulin Ratio 1.3 (1.0-2.2) 04/02/23 08:32 Lipase 125 U/L (11-82) H 04/02/23 08:32 Blood Type A POSITIVE 04/03/23 06:00 Blood Type Recheck A POSITIVE 04/02/23 09:08 Antibody Screen NEGATIVE 04/03/23 06:00 Crossmatch IS Only See Detail 04/03/23 06:00
[2023-04-05 05:11] LABS: BASOPHILS % (AUTO) 0.4 %; EOSINOPHILS # (AUTO) 0.2 10^3/uL (0.0-0.7); EOSINOPHILS % (AUTO) 3.2 %; HCT - HEMATOCRIT 24.3 % (37.0-47.0); HGB - HEMOGLOBIN 7.7 g/dL (12.0-16.0); LYMPHOCYTES # (AUTO) 1.4 10^3/uL (1.5-3.5); LYMPHOCYTES % (AUTO) 19.7 %; MEAN CORPUSCULAR HEMOGLOBIN 27.8 pg (27.0-31.0); MEAN CORPUSCULAR HGB CONC 31.7 g/dL (32.0-36.0); MEAN CORPUSCULAR VOLUME 87.7 fL (81.0-99.0); MONOCYTES # (AUTO) 0.4 10^3/uL (0.0-1.0); MONOCYTES % (AUTO) 5.1 %; NEUTROPHILS # (AUTO) 5.2 10^3/uL (1.5-6.6); NEUTROPHILS % (AUTO) 71.2 %; PLT - PLATELET COUNT 112 10^3/uL (130-450); RED BLOOD COUNT 2.77 10^6/uL (4.20-5.40); RED CELL DISTRIBUTION WIDTH 16.7 % (12.0-15.0); WHITE BLOOD COUNT 7.3 x10^3/uL (4.8-10.8)
[2023-04-05] MEDS: PIPERACILLIN/TAZOBACTAM 3.375 GM in SODIUM CHLORIDE 0.9% MINIBAG 100 ML IV SCH (05:18)
[2023-04-05 05:30] LABS: ALBUMIN 2.8 g/dL (3.2-5.5); ALBUMIN/GLOBULIN RATIO 1.5 (1.0-2.2); BILIRUBIN,TOTAL 0.4 mg/dL (0.2-1.0); CALCIUM 8.1 mg/dL (8.5-10.3); CREATININE 1.2 mg/dL (0.6-1.3); POTASSIUM 3.3 mmol/L (3.5-4.5); TOTAL PROTEIN 4.7 g/dL (6.4-8.9)
[2023-04-05] MEDS: POTASSIUM CHLORIDE 10 MEQ CAPSULE PO ONE (08:44)
--- NOTE | 2023-04-05 10:20 | PROVIDER PROGRESS NOTE ---
Assessment/Plan - Problem List (1) Duodenal ulcer Assessment/Plan: She was on Xarelto which probably promoted GI bleeding. Her Xarelto has been on hold since admission. Her EGD showed a duodenal ulcer, it was not bleed at the time She has had signif decreased watery black diarrhea She tolerated her clear liquid diet being advanced to minced and moist, w/out pain or N/V Plan: Continue monitoring for a drop in hemoglobin, hypotension or recurrent GI bleeding Today I will change her Protonix IV BID to oral form Remain on minced and moist diet today and as we advance, I will make the diet low fiber (2) Anemia due to GI blood loss Her hemoglobin dropped to 6.5 yesterday, she got 1U PRBCs and the Hgb only roseto 7.2, so she got another U PRBCs. Then Hgb last night and this a.m. is 7.7 (all labs were reviewed) Plan: Continue treating the sources of her blood loss: her duodenal ulcer and her diverticulitis Follow her hemoglobin every 8-12 hours. Transfuse if hemoglobin drops below 7. Will order PT and OT to start working with her. She will need orthostatic vital signs checked. Today is Friday and we have no PT or OT this weekend, so I have asked nursing to get her OOB to chair for meals. (3) Diverticulitis Conclusion/Plan: Patient also had lower GI bleeding, since her BMs were reported to be both bloody and black, at presentation. Her CT abdomen showed she has diverticulitis We have her on IV Zosyn, as per Gen Surg rec Plan: Today I will change her IV Zosyn to p.o. Cipro and p.o. Flagyl Remain on minced and moist diet today and as we advance, I will make the diet low fiber (4) Anticoagulant long-term use Conclusion/Plan: Patient is on anticoagulation for her history of hypercoagulability and prior DVT and strokes Plan: Xarelto is on hold and she will be without stroke prophylaxis for a time. She is aware of no stroke prophylaxis w/out anticoagulants currently. As per the general surgeon's note, about 2 to 4 days to remain off anticoagulants. Today is Day 4. Going forward, as we restart anticoagulants, I will put her on Eliquis which has been proven to have a lower rate of GI bleeds then Xarelto. I Discussed this with Dr. Louis of General Surgery today and he is in agreement. (5) Chronic renal insufficiency Conclusion/Plan: Her creatinine runs 1.4-1.6 and it is in that range now The BUN is more elevated than usual which is consistent with an acute GI bleed Plan: Avoid nephrotoxins I will tape her IV fluid down to off, since she is drinking well (6) Dementia Conclusion/Plan: As per Hx. She is very interactive, alert and oriented x 3 and is a good historian. Plan: Continue her usual Aricept - Current Meds Current Meds: Current Medications Generic Name Dose Route Start Last Admin Trade Name Freq PRN Reason Stop Dose Admin Acetaminophen 650 mg 04/02/23 11:42 04/05/23 00:12 Acetaminophen 325 Mg Tablet PO 650 mg Q4HR PRN Administration Pain 1 to 4, or Fever Donepezil HCl 10 mg 04/02/23 21:00 04/04/23 21:49 Donepezil 5 Mg Tablet PO 10 mg QPM VENTURA Administration Sodium Chloride 1,000 mls @ 60 mls/hr 04/02/23 12:00 04/04/23 20:31 Normal Saline 0.9% IV 04/06/23 23:00 60 mls/hr .[id number] VENTURA Infusion Isosorbide Mononitrate 60 mg 04/03/23 09:00 04/05/23 08:44 Isosorbide Mononitrate Er 30 Mg Tablet PO 60 mg DAILY VENTURA Administration Multi-Ingredient Ointment 1 applic 04/03/23 22:36 04/05/23 07:09 Zinc Oxide 20% Oint 30 Gm Tube TOP 1 applic PRN PRN Administration Skin Care Sodium Chloride 10 ml 04/02/23 17:00 04/05/23 08:44 Sodium Chloride Flush 0.9% 10 Ml Syringe IVP 10 ml 0100,0900,1700 VENTURA Administration Sucralfate 1 gm 04/04/23 16:00 04/05/23 06:20 Sucralfate 1 Gm/10 Ml Udc PO 1 gm 0700,1100,1600,2200 VENTURA Administration - Lab Result Fish Bone Diagrams: 04/06/23 05:10 04/06/23 05:10 - Additional Planning My Orders: My Active Orders 04/04/23 13:34 Miscellaenous Nursing Order [RC] [facility] 04/04/23 Dinner DIET [Dysphagia - Minced and Moist] [DIET] 04/05/23 10:12 [facility]ellaenous [facility]RC] [facility] 04/05/23 12:00 metroNIDAZOLE [Flagyl] 500 mg PO TIDWM 04/05/23 13:00 HGB - HEMOGLOBIN [HEME] Q8H 04/05/23 19:00 HGB - HEMOGLOBIN [HEME] Timed 04/05/23 21:00 HGB - HEMOGLOBIN [HEME] Q8H Ciprofloxacin [Cipro] 250 mg PO BID Pantoprazole [Protonix] 40 mg PO BID 04/06/23 05:00 BMP - BASIC METABOLIC PANEL [CHEM] DAILYLAB CBC - COMP BLD CT W/AUTO DIFF [HEME] DAILYLAB HGB - HEMOGLOBIN [HEME] Q8H 04/06/23 13:00 HGB - HEMOGLOBIN [HEME] Q8H Subjective - Subjective Patient Reports: Resting Comfortably, No Complaints Objective Vital Signs: Vital Signs - 24 hr 04/04/23 04/04/23 04/04/23 11:16 13:00 16:59 Temperature 36.7 C 36.8 C 36.7 C Heart Rate [ 68 75 55 L Brachial] Respiratory 14 16 16 Rate Blood Pressure 137/62 H [Left Brachial artery] Blood Pressure 115/52 L 134/84 H [Right Brachial artery] O2 Saturation 93 98 18 L If not protocol 96 : Oxygen Flow, liters/minute 04/04/23 04/04/23 04/04/23 17:16 17:45 20:29 Temperature 36.7 C 36.8 C 36.7 C Heart Rate [ 64 66 65 Brachial] Respiratory 18 16 Rate Blood Pressure [Left Brachial artery] Blood Pressure 145/75 H 110/43 L 124/54 L [Right Brachial artery] O2 Saturation 97 If not protocol : Oxygen Flow, liters/minute 04/04/23 04/05/23 04/05/23 21:00 00:10 05:00 Temperature 36.7 C 36.8 C 36.7 C Heart Rate [ 60 61 78 Brachial] Respiratory 20 20 20 Rate Blood Pressure 101/42 L [Left Brachial artery] Blood Pressure 132/61 H 167/81 H [Right Brachial artery] O2 Saturation 99 98 99 If not protocol : Oxygen Flow, liters/minute 04/05/23 08:28 Temperature 36.6 C Heart Rate [ 53 L Brachial] Respiratory 18 Rate Blood Pressure [Left Brachial artery] Blood Pressure 145/63 H [Right Brachial artery] O2 Saturation 96 If not protocol : Oxygen Flow, liters/minute Oxygen O2 Source Room air I&O (Last 24 Hrs): Intake and Output Totals x24h 04/03/23 04/04/23 04/05/23 23:59 23:59 23:59 Intake Total 3330 3999 880 Output Total 2 202 Balance 3330 3997 678 General: Alert, Oriented x3, No acute distress HEENT: EOMI, Mucous membr. moist/pink, Other (Long hair, disheveled) Neck: Supple Neuro: Alert, Non Focal, Other (Poor memory) Cardiovascular: Other (Irregularly irregular) Respiratory: No respiratory distress Abdomen: Normal bowel sounds, Soft, No tenderness Extremities: No edema, No tenderness/swelling - Results Results: Laboratory Results WBC 7.3 x10^3/uL (4.8-10.8) 04/05/23 04:58 RBC 2.77 10^6/uL (4.20-5.40) L 04/05/23 04:58 Hgb 7.7 g/dL (12.0-16.0) L 04/05/23 04:58 Hct 24.3 % (37.0-47.0) L 04/05/23 04:58 MCV 87.7 fL (81.0-99.0) 04/05/23 04:58 MCH 27.8 pg (27.0-31.0) 04/05/23 04:58 MCHC 31.7 g/dL (32.0-36.0) L 04/05/23 04:58 RDW 16.7 % (12.0-15.0) H 04/05/23 04:58 Plt Count 112 10^3/uL (130-450) L 04/05/23 04:58 MPV 11.0 fL (7.9-10.8) H 04/05/23 04:58 Neut # (Auto) 5.2 10^3/uL (1.5-6.6) 04/05/23 04:58 Lymph # (Auto) 1.4 10^3/uL (1.5-3.5) L 04/05/23 04:58 [place] # (Auto) 0.4 10^3/uL (0.0-1.0) 04/05/23 04:58 Eos # (Auto) 0.2 10^3/uL (0.0-0.7) 04/05/23 04:58 Baso # (Auto) 0.0 10^3/uL (0.0-0.1) 04/05/23 04:58 Absolute Nucleated RBC 0.00 x10^3/uL 04/05/23 04:58 Nucleated RBC % 0.0 /100WBC 04/05/23 04:58 PT 13.8 secs (9.9-12.6) H 04/02/23 08:32 INR 1.3 (0.8-1.2) H 04/02/23 08:32 APTT 23.1 secs (24.9-33.3) L 04/02/23 08:32 Sodium 140 mmol/L (135-145) 04/05/23 04:58 Potassium 3.3 mmol/L (3.5-4.5) L 04/05/23 04:58 Chloride 114 mmol/L (101-111) H 04/05/23 04:58 Carbon Dioxide 22 mmol/L (21-32) 04/05/23 04:58 Anion Gap 4.0 (6-13) L 04/05/23 04:58 BUN 15 mg/dL (6-20) 04/05/23 04:58 Creatinine 1.2 mg/dL (0.6-1.3) 04/05/23 04:58 Estimated GFR (MDRD) 44 (>89) L 04/05/23 04:58 Glucose 101 mg/dL (74-104) 04/05/23 04:58 Calcium 8.1 mg/dL (8.5-10.3) L 04/05/23 04:58 Magnesium 1.9 mg/dL (1.7-2.3) 04/02/23 08:32 Total Bilirubin 0.4 mg/dL (0.2-1.0) 04/05/23 04:58 AST 13 IU/L (10-42) 04/05/23 04:58 ALT 8 IU/L (10-60) L 04/05/23 04:58 Alkaline Phosphatase 35 IU/L (42-121) L 04/05/23 04:58 Total Protein 4.7 g/dL (6.4-8.9) L 04/05/23 04:58 Albumin 2.8 g/dL (3.2-5.5) L 04/05/23 04:58 Globulin 1.9 g/dL (2.1-4.2) L 04/05/23 04:58 Albumin/Globulin Ratio 1.5 (1.0-2.2) 04/05/23 04:58 Lipase 125 U/L (11-82) H 04/02/23 08:32 Blood Type A POSITIVE 04/03/23 06:00 Blood Type Recheck A POSITIVE 04/02/23 09:08 Antibody Screen NEGATIVE 04/03/23 06:00 Crossmatch IS Only See Detail 04/03/23 06:00
[2023-04-05] MEDS: metroNIDAZOLE 250 MG TABLET PO SCH (12:40)
[2023-04-05] MEDS: PANTOPRAZOLE 40 MG TABLET PO SCH (21:15)
[2023-04-05] MEDS: CIPROFLOXACIN 250 MG TABLET PO SCH (21:15)
[2023-04-06 05:46] LABS: BASOPHILS % (AUTO) 0.6 %; EOSINOPHILS # (AUTO) 0.2 10^3/uL (0.0-0.7); HCT - HEMATOCRIT 25.7 % (37.0-47.0); LYMPHOCYTES # (AUTO) 1.1 10^3/uL (1.5-3.5); LYMPHOCYTES % (AUTO) 17.1 %; MEAN CORPUSCULAR HEMOGLOBIN 27.6 pg (27.0-31.0); MEAN CORPUSCULAR HGB CONC 31.1 g/dL (32.0-36.0); MEAN CORPUSCULAR VOLUME 88.6 fL (81.0-99.0); MEAN PLATELET VOLUME 10.9 fL (7.9-10.8); MONOCYTES # (AUTO) 0.4 10^3/uL (0.0-1.0); MONOCYTES % (AUTO) 6.2 %; NEUTROPHILS # (AUTO) 4.8 10^3/uL (1.5-6.6); NEUTROPHILS % (AUTO) 72.6 %; PLT - PLATELET COUNT 113 10^3/uL (130-450); RED CELL DISTRIBUTION WIDTH 16.8 % (12.0-15.0); WHITE BLOOD COUNT 6.6 x10^3/uL (4.8-10.8)
[2023-04-06 05:49] LABS: CALCIUM 8.4 mg/dL (8.5-10.3); CREATININE 1.1 mg/dL (0.6-1.3); POTASSIUM 3.4 mmol/L (3.5-4.5)
[2023-04-06] MEDS ORDERED: BISACODYL 10 MG SUPP PR PRN (09:00)
--- NOTE | 2023-04-06 09:11 | PROVIDER PROGRESS NOTE ---
Assessment/Plan - Problem List (1) Duodenal ulcer Assessment/Plan: She was on Xarelto which probably promoted GI bleeding. Her Xarelto has been on hold since admission. Her EGD showed a duodenal ulcer, it was not bleed at the time. There has been no further watery black diarrhea for several days She tolerates her diet being advanced w/out pain or N/V Plan: Continue on low fiber diet now and at discharge. Continue with p.o. Protonix I will start her on Eliquis 5 mg p.o. twice daily this morning and watch closely for recurrence of bleeding or Hgb drop. I updated the pt and she understands (2) Anemia due to GI blood loss Her hemoglobin dropped to 6.5 yesterday, she got 1U PRBCs and the Hgb only roseto 7.2, so she got another U PRBCs. Then Hgb last night and this a.m. is 7.7 (all labs were reviewed) I thought she would need orthostatic vital signs checked, but she is hyp ertensive today, since she has been off several of her BP meds Plan: Continue treating the sources of her blood loss: her duodenal ulcer and her diverticulitis Follow her hemoglobin every 12 hours. Transfuse if hemoglobin drops below 7. (3) Diverticulitis Conclusion/Plan: Patient also had lower GI bleeding, since her BMs were reported to be both bloody and black, at presentation. Her CT abdomen showed she has diverticulitis We have her on IV Zosyn, as per Gen Surg rec Plan: Today I will change her IV Zosyn to p.o. Cipro and p.o. Flagyl Remain on minced and moist diet today and as we advance, I will make the diet low fiber (4) Diarrhea This a.m. she had a watery BM, not smelling like blood, or like C diff. A C diff test was sent toro and is negg. This is probably from her bowels moving from having her diet advanced for 3 days. Plan: Monitor BMs (5) Anticoagulant long-term use Conclusion/Plan: Patient is on anticoagulation for her history of hypercoagulability and prior DVT and strokes. She was on Xarelto Plan: Xarelto has been on hold and she has been without stroke prophylaxis for 4 days. She is aware of no stroke prophylaxis w/out anticoagulants. As per the general surgeon's note, she recommended about 2 to 4 days to remain off anticoagulants. Today I will start her on Eliquis 5 mg p.o. twice daily this morning and watch closely for recurrence of bleeding or Hgb drop. Eliquis is chosen over resuming Xarelto since it has a proven lower risk of GI bleeds. I explained this to the patient and she was in full agreement. She will be on Eliquis after discharge, even if her prescription plan requires special authorization. She is not yet ready for discharge today, because we will be watching for recurrence of bleeding closely (5) HTN I thought she would need orthostatic vital signs checked, but she is hypertensive today, since she has been off several of her BP meds Plan: Orthostatic vital sign checks not needed I will resume her Minoxidil as pt's own med (6) Chronic renal insufficiency Conclusion/Plan: Her creatinine runs 1.4-1.6 and it is in that range now The BUN is more elevated than usual which is consistent with an acute GI bleed Plan: Avoid nephrotoxins I will taper her IV fluid down to off, since she is drinking well and the iv fluids may be causing HTN (7) Dementia Conclusion/Plan: Stable. She is very interactive, alert and oriented x 3 and is a good historian. Plan: Continue her usual Aricept - Current Meds Current Meds: Current Medications Generic Name Dose Route Start Last Admin Trade Name Cristiq PRN Reason Stop Dose Admin Acetaminophen 650 mg 04/02/23 11:42 04/06/23 04:18 Acetaminophen 325 Mg Tablet PO 650 mg Q4HR PRN Administration Pain 1 to 4, or Fever Ciprofloxacin 250 mg 04/05/23 21:00 04/06/23 08:29 Ciprofloxacin 250 Mg Tablet PO 250 mg BID VENTURA Administration Donepezil HCl 10 mg 04/02/23 21:00 04/05/23 21:15 Donepezil 5 Mg Tablet PO 10 mg QPM VENTURA Administration Sodium Chloride 1,000 mls @ 60 mls/hr 04/02/23 12:00 04/06/23 01:43 Normal Saline 0.9% IV 04/06/23 23:00 60 mls/hr .[id number] VENTURA Administration Isosorbide Mononitrate 60 mg 04/03/23 09:00 04/06/23 08:29 Isosorbide Mononitrate Er 30 Mg Tablet PO 60 mg DAILY VENTURA Administration Metronidazole 500 mg 04/05/23 12:00 04/06/23 08:29 Metronidazole 250 Mg Tablet PO 500 mg TIDWM VENTURA Administration Multi-Ingredient Ointment 1 applic 04/03/23 22:36 04/06/23 04:29 Zinc Oxide 20% Oint 30 Gm Tube TOP 1 applic PRN PRN Administration Skin Care Pantoprazole Sodium 40 mg 04/05/23 21:00 04/06/23 08:29 Pantoprazole 40 Mg Tablet PO 40 mg BID VENTURA Administration Sodium Chloride 10 ml 04/02/23 17:00 04/06/23 08:31 Sodium Chloride Flush 0.9% 10 Ml Syringe IVP Not Given 0100,0900,1700 [facility] Sucralfate 1 gm 04/04/23 16:00 04/06/23 06:25 Sucralfate 1 Gm/10 Ml Udc PO 1 gm 0700,1100,1600,2200 [facility] Administration - Lab Result Fish Bone Diagrams: 04/06/23 13:00 04/06/23 05:10 - Additional Planning My Orders: My Active Orders 04/05/23 10:12 Miscellaenous Nursing Order [RC] QSHIFT 04/05/23 12:00 metroNIDAZOLE [Flagyl] 500 mg PO TIDWM 04/05/23 Dinner DIET [Soft (Low Fiber) Diet] [DIET] 04/05/23 21:00 Ciprofloxacin [Cipro] 250 mg PO BID Pantoprazole [Protonix] 40 mg PO BID 04/06/23 09:00 Bisacodyl Supp [Dulcolax Supp] 10 mg AR DAILY PRN Furosemide [Lasix] 20 mg PO BID minoxidiL [Minoxidil] 2.5 mg PO BID 04/06/23 09:01 Apixaban [Eliquis] 5 mg PO BID 04/06/23 14:00 Carboxymethylcellulose 1% Opht [Refresh 1% Ophth Drops] 2 drops RIGHTEYE TID 04/06/23 18:00 HGB - HEMOGLOBIN [HEME] Timed 04/06/23 21:00 Atorvastatin [Lipitor] 40 mg PO QPM 04/07/23 05:00 BMP - BASIC METABOLIC PANEL [CHEM] DAILYLAB CBC W/O DIFF (HEMOGRAM) [HEME] DAILYLAB MAGNESIUM [CHEM] DAILYLAB 04/08/23 05:00 CBC W/O DIFF (HEMOGRAM) [HEME] DAILYLAB Subjective - Subjective Patient Reports: Resting Comfortably, No Complaints Nursing Reports: Other (Watery diarrhea again, without cramping abd pain) Objective Vital Signs: Vital Signs - 24 hr 04/05/23 04/05/23 04/05/23 12:18 16:56 23:42 Temperature 36.7 C 36.7 C 36.7 C Heart Rate [ 65 71 61 Brachial] Respiratory 18 16 18 Rate Blood Pressure 144/62 H 134/74 H 137/58 H [Right Brachial artery] O2 Saturation 95 92 97 04/06/23 07:55 Temperature 36.7 C Heart Rate [ 81 Brachial] Respiratory 20 Rate Blood Pressure 161/93 H [Right Brachial artery] O2 Saturation 95 Oxygen O2 Source Room air I&O (Last 24 Hrs): Intake and Output Totals x24h 04/04/23 04/05/23 04/06/23 23:59 23:59 23:59 Intake Total 3999 2880 1532 Output Total 2 202 200 Balance 3997 2678 1332 General: Alert, Oriented x3 HEENT: EOMI, Mucous membr. moist/pink Neck: Supple, No JVD Neuro: Alert, Non Focal, Other (Poor memory and today has flight of ideas) Cardiovascular: Other (Irreg irreg) Respiratory: No respiratory distress, Breath sounds nml Abdomen: Normal bowel sounds, Soft, No tenderness Extremities: No edema, No tenderness/swelling - Results Results: Laboratory Results WBC 6.6 x10^3/uL (4.8-10.8) 04/06/23 05:10 RBC 2.90 10^6/uL (4.20-5.40) L 04/06/23 05:10 Hgb 8.0 g/dL (12.0-16.0) L 04/06/23 05:10 Hct 25.7 % (37.0-47.0) L 04/06/23 05:10 MCV 88.6 fL (81.0-99.0) 04/06/23 05:10 MCH 27.6 pg (27.0-31.0) 04/06/23 05:10 MCHC 31.1 g/dL (32.0-36.0) L 04/06/23 05:10 RDW 16.8 % (12.0-15.0) H 04/06/23 05:10 Plt Count 113 10^3/uL (130-450) L 04/06/23 05:10 MPV 10.9 fL (7.9-10.8) H 04/06/23 05:10 Neut # (Auto) 4.8 10^3/uL (1.5-6.6) 04/06/23 05:10 Lymph # (Auto) 1.1 10^3/uL (1.5-3.5) L 04/06/23 05:10 [place] # (Auto) 0.4 10^3/uL (0.0-1.0) 04/06/23 05:10 Eos # (Auto) 0.2 10^3/uL (0.0-0.7) 04/06/23 05:10 Baso # (Auto) 0.0 10^3/uL (0.0-0.1) 04/06/23 05:10 Absolute Nucleated RBC 0.00 x10^3/uL 04/06/23 05:10 Nucleated RBC % 0.0 /100WBC 04/06/23 05:10 PT 13.8 secs (9.9-12.6) H 04/02/23 08:32 INR 1.3 (0.8-1.2) H 04/02/23 08:32 APTT 23.1 secs (24.9-33.3) L 04/02/23 08:32 Sodium 142 mmol/L (135-145) 04/06/23 05:10 Potassium 3.4 mmol/L (3.5-4.5) L 04/06/23 05:10 Chloride 114 mmol/L (101-111) H 04/06/23 05:10 Carbon Dioxide 24 mmol/L (21-32) 04/06/23 05:10 Anion Gap 4.0 (6-13) L 04/06/23 05:10 BUN 10 mg/dL (6-20) 04/06/23 05:10 Creatinine 1.1 mg/dL (0.6-1.3) 04/06/23 05:10 Estimated GFR (MDRD) 49 (>89) L 04/06/23 05:10 Glucose 91 mg/dL (74-104) 04/06/23 05:10 Calcium 8.4 mg/dL (8.5-10.3) L 04/06/23 05:10 Magnesium 1.9 mg/dL (1.7-2.3) 04/02/23 08:32 Total Bilirubin 0.4 mg/dL (0.2-1.0) 04/05/23 04:58 AST 13 IU/L (10-42) 04/05/23 04:58 ALT 8 IU/L (10-60) L 04/05/23 04:58 Alkaline Phosphatase 35 IU/L (42-121) L 04/05/23 04:58 Total Protein 4.7 g/dL (6.4-8.9) L 04/05/23 04:58 Albumin 2.8 g/dL (3.2-5.5) L 04/05/23 04:58 Globulin 1.9 g/dL (2.1-4.2) L 04/05/23 04:58 Albumin/Globulin Ratio 1.5 (1.0-2.2) 04/05/23 04:58 Lipase 125 U/L (11-82) H 04/02/23 08:32 Blood Type A POSITIVE 04/03/23 06:00 Blood Type Recheck A POSITIVE 04/02/23 09:08 Antibody Screen NEGATIVE 04/03/23 06:00 Crossmatch IS Only See Detail 04/03/23 06:00
[2023-04-06] MEDS: APIXABAN 5 MG TABLET PO SCH (10:26)
[2023-04-06] MEDS: FUROSEMIDE 40 MG TABLET PO SCH (10:26)
[2023-04-06] MEDS: CARBOXYMETHYLCELLULOSE OPHTH DROPS RIGHTEYE SCH (14:19)
--- NOTE | 2023-04-06 17:59 | PROVIDER PROGRESS NOTE ---
Assessment/Plan - Current Meds Current Meds: Current Medications Generic Name Dose Route Start Last Admin Trade Name [place] PRN Reason Stop Dose Admin Acetaminophen 650 mg 04/02/23 11:42 04/06/23 04:18 Acetaminophen 325 Mg Tablet PO 650 mg Q4HR PRN Administration Pain 1 to 4, or Fever Apixaban 5 mg 04/06/23 09:01 04/06/23 10:26 Apixaban 5 Mg Tablet PO 5 mg BID VENTURA Administration Carboxymethylcellulose 2 drops 04/06/23 14:00 04/06/23 14:19 Carboxymethylcellulose Ophth Drops RIGHTEYE 2 drops TID VENTURA Administration Ciprofloxacin 250 mg 04/05/23 21:00 04/06/23 08:29 Ciprofloxacin 250 Mg Tablet PO 250 mg BID VENTURA Administration Donepezil HCl 10 mg 04/02/23 21:00 04/05/23 21:15 Donepezil 5 Mg Tablet PO 10 mg QPM VENTURA Administration Furosemide 20 mg 04/06/23 09:00 04/06/23 10:26 Furosemide 40 Mg Tablet PO 20 mg BID VENTURA Administration Isosorbide Mononitrate 60 mg 04/03/23 09:00 04/06/23 08:29 Isosorbide Mononitrate Er 30 Mg Tablet PO 60 mg DAILY VENTURA Administration Metronidazole 500 mg 04/05/23 12:00 04/06/23 17:04 Metronidazole 250 Mg Tablet PO 500 mg TIDWM VENTURA Administration Multi-Ingredient Ointment 1 applic 04/03/23 22:36 04/06/23 04:29 Zinc Oxide 20% Oint 30 Gm Tube TOP 1 applic PRN PRN Administration Skin Care Pantoprazole Sodium 40 mg 04/05/23 21:00 04/06/23 08:29 Pantoprazole 40 Mg Tablet PO 40 mg BID VENTURA Administration Sodium Chloride 10 ml 04/02/23 17:00 04/06/23 17:04 Sodium Chloride Flush 0.9% 10 Ml Syringe IVP 10 ml 0100,0900,1700 VENTURA Administration Sucralfate 1 gm 04/04/23 16:00 04/06/23 17:04 Sucralfate 1 Gm/10 Ml Udc PO 1 gm 0700,1100,1600,2200 VENTURA Administration - Lab Result Fish Bone Diagrams: 04/06/23 13:00 04/06/23 05:10 - Additional Planning My Orders: My Active Orders 04/05/23 21:00 Ciprofloxacin [Cipro] 250 mg PO BID Pantoprazole [Protonix] 40 mg PO BID 04/06/23 09:00 Bisacodyl Supp [Dulcolax Supp] 10 mg CA DAILY PRN Furosemide [Lasix] 20 mg PO BID 04/06/23 09:01 Apixaban [Eliquis] 5 mg PO BID 04/06/23 14:00 Carboxymethylcellulose 1% Opht [Refresh 1% Ophth Drops] 2 drops RIGHTEYE TID 04/06/23 18:00 HGB - HEMOGLOBIN [HEME] Timed 04/06/23 21:00 Atorvastatin [Lipitor] 40 mg PO QPM Patient Own Med 1 each PO BID 04/07/23 05:00 BMP - BASIC METABOLIC PANEL [CHEM] DAILYLAB CBC W/O DIFF (HEMOGRAM) [HEME] DAILYLAB MAGNESIUM [CHEM] DAILYLAB 04/08/23 05:00 CBC W/O DIFF (HEMOGRAM) [HEME] DAILYLAB Objective Vital Signs: Vital Signs - 24 hr 04/05/23 04/06/23 04/06/23 23:42 07:55 10:17 Temperature 36.7 C 36.7 C Heart Rate [ 61 81 57 L Brachial] Respiratory 18 20 Rate Blood Pressure 137/58 H 161/93 H 158/76 H [Right Brachial artery] O2 Saturation 97 95 04/06/23 17:16 Temperature 36.7 C Heart Rate [ 53 L Brachial] Respiratory 16 Rate Blood Pressure 147/61 H [Right Brachial artery] O2 Saturation 98 Oxygen O2 Source Room air I&O (Last 24 Hrs): Intake and Output Totals x24h 04/04/23 04/05/23 04/06/23 23:59 23:59 23:59 Intake Total 3999 2880 3154 Output Total 2 202 200 Balance 3997 4268 4764 - Results Results: Laboratory Results WBC 6.6 x10^3/uL (4.8-10.8) 04/06/23 05:10 RBC 2.90 10^6/uL (4.20-5.40) L 04/06/23 05:10 Hgb 8.2 g/dL (12.0-16.0) L 04/06/23 13:00 Hct 25.7 % (37.0-47.0) L 04/06/23 05:10 MCV 88.6 fL (81.0-99.0) 04/06/23 05:10 MCH 27.6 pg (27.0-31.0) 04/06/23 05:10 MCHC 31.1 g/dL (32.0-36.0) L 04/06/23 05:10 RDW 16.8 % (12.0-15.0) H 04/06/23 05:10 Plt Count 113 10^3/uL (130-450) L 04/06/23 05:10 MPV 10.9 fL (7.9-10.8) H 04/06/23 05:10 Neut # (Auto) 4.8 10^3/uL (1.5-6.6) 04/06/23 05:10 Lymph # (Auto) 1.1 10^3/uL (1.5-3.5) L 04/06/23 05:10 [place] # (Auto) 0.4 10^3/uL (0.0-1.0) 04/06/23 05:10 Eos # (Auto) 0.2 10^3/uL (0.0-0.7) 04/06/23 05:10 Baso # (Auto) 0.0 10^3/uL (0.0-0.1) 04/06/23 05:10 Absolute Nucleated RBC 0.00 x10^3/uL 04/06/23 05:10 Nucleated RBC % 0.0 /100WBC 04/06/23 05:10 PT 13.8 secs (9.9-12.6) H 04/02/23 08:32 INR 1.3 (0.8-1.2) H 04/02/23 08:32 APTT 23.1 secs (24.9-33.3) L 04/02/23 08:32 Sodium 142 mmol/L (135-145) 04/06/23 05:10 Potassium 3.4 mmol/L (3.5-4.5) L 04/06/23 05:10 Chloride 114 mmol/L (101-111) H 04/06/23 05:10 Carbon Dioxide 24 mmol/L (21-32) 04/06/23 05:10 Anion Gap 4.0 (6-13) L 04/06/23 05:10 BUN 10 mg/dL (6-20) 04/06/23 05:10 Creatinine 1.1 mg/dL (0.6-1.3) 04/06/23 05:10 Estimated GFR (MDRD) 49 (>89) L 04/06/23 05:10 Glucose 91 mg/dL (74-104) 04/06/23 05:10 Calcium 8.4 mg/dL (8.5-10.3) L 04/06/23 05:10 Magnesium 1.9 mg/dL (1.7-2.3) 04/02/23 08:32 Total Bilirubin 0.4 mg/dL (0.2-1.0) 04/05/23 04:58 AST 13 IU/L (10-42) 04/05/23 04:58 ALT 8 IU/L (10-60) L 04/05/23 04:58 Alkaline Phosphatase 35 IU/L (42-121) L 04/05/23 04:58 Total Protein 4.7 g/dL (6.4-8.9) L 04/05/23 04:58 Albumin 2.8 g/dL (3.2-5.5) L 04/05/23 04:58 Globulin 1.9 g/dL (2.1-4.2) L 04/05/23 04:58 Albumin/Globulin Ratio 1.5 (1.0-2.2) 04/05/23 04:58 Lipase 125 U/L (11-82) H 04/02/23 08:32 Stl C. diff Tox B Gene NEGATIVE (NEGATIVE) 04/06/23 10:15 Blood Type A POSITIVE 04/03/23 06:00 Blood Type Recheck A POSITIVE 04/02/23 09:08 Antibody Screen NEGATIVE 04/03/23 06:00 Crossmatch IS Only See Detail 04/03/23 06:00
[2023-04-06] MEDS: COD LIVER OIL/ZINC OXIDE 113 GM TUBE TOP PRN (18:45)
[2023-04-06] MEDS: ATORVASTATIN 40 MG TABLET PO SCH (21:20)
[2023-04-06] MEDS: MINOXIDIL PO SCH (21:20)
[2023-04-07 06:20] LABS: HCT - HEMATOCRIT 29.4 % (37.0-47.0); HGB - HEMOGLOBIN 9.2 g/dL (12.0-16.0); MEAN CORPUSCULAR HEMOGLOBIN 27.5 pg (27.0-31.0); MEAN CORPUSCULAR HGB CONC 31.3 g/dL (32.0-36.0); MEAN CORPUSCULAR VOLUME 87.8 fL (81.0-99.0); MEAN PLATELET VOLUME 10.5 fL (7.9-10.8); RED BLOOD COUNT 3.35 10^6/uL (4.20-5.40); RED CELL DISTRIBUTION WIDTH 16.6 % (12.0-15.0); WHITE BLOOD COUNT 6.7 x10^3/uL (4.8-10.8)
[2023-04-07 06:38] LABS: CALCIUM 8.9 mg/dL (8.5-10.3); CREATININE 1.2 mg/dL (0.6-1.3); MAGNESIUM 1.9 mg/dL (1.7-2.3); POTASSIUM 3.3 mmol/L (3.5-4.5)
[2023-04-07 10:57] LABS: % IRON SATURATION 10 % (20-50); IRON 23 ug/dL (50-212); TOTAL IRON BINDING CAPACITY 221 ug/dL (250-450); TRANSFERRIN 158 mg/dL (203-362)
[2023-04-07] MEDS: POTASSIUM CHLORIDE 10 MEQ CAPSULE PO SCH (11:42)
[2023-04-07] MEDS: LOPERAMIDE 2 MG CAPSULE PO PRN (13:06)
--- NOTE | 2023-04-07 19:09 | PROVIDER PROGRESS NOTE ---
Assessment/Plan - Problem List (1) Duodenal ulcer Assessment/Plan: She was on Xarelto which probably promoted GI bleeding. Her Xarelto has been on hold since admission. Her EGD showed a duodenal ulcer, it was not bleed at the time. There has been no further watery black diarrhea for several days She tolerates her diet being advanced w/out pain or N/V Plan: Continue on low fiber diet now and at discharge. Continue with p.o. Protonix On 04/06, I started her on Eliquis 5 mg p.o. twice daily and watch closely for recurrence of bleeding or Hgb drop. She needs to be discharged on Eliquis not Xarelto. I have already sent over the prescription to her outpatient pharmacy and it does not need prior authorization. (2) Anemia due to GI blood loss Her hemoglobin dropped to 6.5 yesterday, she got 1U PRBCs and the Hgb only roseto 7.2, so she got another U PRBCs. Then Hgb last night and this a.m. is 7.7 (all labs were reviewed) I thought she would need orthostatic vital signs checked, but she is hypertensive today, since she has been off several of her BP meds Plan: Continue treating the sources of her blood loss: her duodenal ulcer and her diverticulitis Follow her hemoglobin every 12 hours. Transfuse if hemoglobin drops below 7. (3) Diverticulitis Conclusion/Plan: Patient also had lower GI bleeding, since her BMs were reported to be both bloody and black, at presentation. Her CT abdomen showed she has diverticulitis We have her on IV Zosyn, as per Gen Surg rec Plan: Today I will change her IV Zosyn to p.o. Cipro and p.o. Flagyl Remain on minced and moist diet today and as we advance, I will make the diet low fiber (4) Diarrhea She had a recurrence of watery diarrhea, not smelling like blood, or like C diff. A C diff test was sent off and is neg. She had 7 liquidy BMs overnight. This is probably from her bowels moving from having her diet advanced for 3 days. Plan: Because of 7 diarrheal BMs, she is not yet ready for discharge. Started on Imodium DM 4 times daily as needed Monitor BMs (5) Anticoagulant long-term use Conclusion/Plan: Patient is on anticoagulation for her history of hypercoagulability and prior DVT and strokes. She was on Xarelto Plan: Xarelto has been on hold and she has been without stroke prophylaxis for 4 days. She is aware of no stroke prophylaxis w/out anticoagulants. As per the general surgeon's note, she recommended about 2 to 4 days to remain off anticoagulants. On 04/06, I started her on Eliquis 5 mg p.o. twice daily. We are watching closely for recurrence of bleeding or Hgb drop. Eliquis is chosen over resuming Xarelto since it has a proven lower risk of GI bleeds. I explained this to the patient and she was in full agreement. She will be on Eliquis after discharge, even if her prescription plan requires special authorization. She is not yet ready for discharge today, because of many watery BMs and we will be watching for recurrence of bleeding closely (5) HTN I thought she would need orthostatic vital signs checked, but she is hypertensive since 04/06, since she was off several of her BP meds Plan: Orthostatic vital sign checks not needed I have resumed her Minoxidil as pt's own med (6) Chronic renal insufficiency Conclusion/Plan: Her creatinine runs 1.4-1.6 and it is in that range now The BUN is more elevated than usual which is consistent with an acute GI bleed Plan: Avoid nephrotoxins I will taper her IV fluid down to off, since she is drinking well and the iv fluids may be causing HTN (7) Dementia Conclusion/Plan: Stable. She is very interactive, alert and oriented x 3 and is a good historian. Plan: Continue her usual Aricept - Current Meds Current Meds: Current Medications Generic Name Dose Route Start Last Admin Trade Name Freq PRN Reason Stop Dose Admin Acetaminophen 650 mg 04/02/23 11:42 04/07/23 11:42 Acetaminophen 325 Mg Tablet PO 650 mg Q4HR PRN Administration Pain 1 to 4, or Fever Apixaban 5 mg 04/06/23 09:01 04/07/23 09:24 Apixaban 5 Mg Tablet PO 5 mg BID VENTURA Administration Atorvastatin Calcium 40 mg 04/06/23 21:00 04/06/23 21:20 Atorvastatin 40 Mg Tablet PO 40 mg QPM VENTURA Administration Carboxymethylcellulose 2 drops 04/06/23 14:00 04/07/23 14:12 Carboxymethylcellulose Ophth Drops RIGHTEYE 2 drops TID VENTURA Administration Ciprofloxacin 250 mg 04/05/23 21:00 04/07/23 09:25 Ciprofloxacin 250 Mg Tablet PO 250 mg BID VENTURA Administration Donepezil HCl 10 mg 04/02/23 21:00 04/06/23 21:19 Donepezil 5 Mg Tablet PO 10 mg QPM VENTURA Administration Furosemide 20 mg 04/06/23 09:00 04/07/23 09:24 Furosemide 40 Mg Tablet PO 20 mg BID VENTURA Administration Isosorbide Mononitrate 60 mg 04/03/23 09:00 04/07/23 09:23 Isosorbide Mononitrate Er 30 Mg Tablet PO 60 mg DAILY VENTURA Administration Loperamide HCl 2 mg 04/07/23 10:36 04/07/23 13:06 Loperamide 2 Mg Capsule PO 2 mg QID PRN Administration Diarrhea Metronidazole 500 mg 04/05/23 12:00 04/07/23 17:38 Metronidazole 250 Mg Tablet PO 500 mg TIDWM VENTURA Administration Multi-Ingredient Ointment 1 applic 04/03/23 22:36 04/07/23 05:57 Zinc Oxide 20% Oint 30 Gm Tube TOP 1 applic PRN PRN Administration Skin Care Pantoprazole Sodium 40 mg 04/05/23 21:00 04/07/23 09:23 Pantoprazole 40 Mg Tablet PO 40 mg BID VENTURA Administration Patient Own Med ( 1 each 04/06/23 21:00 04/07/23 09:22 Minoxidil) PO 1 each BID VENTURA Administration Potassium Chloride 20 meq 04/07/23 11:00 04/07/23 11:42 Potassium Chloride 10 Meq Capsule PO 20 meq DAILYWM VENTURA Administration Sodium Chloride 10 ml 04/02/23 17:00 04/07/23 17:38 Sodium Chloride Flush 0.9% 10 Ml Syringe IVP 10 ml 0100,0900,1700 VENTURA Administration Sucralfate 1 gm 04/04/23 16:00 04/07/23 17:38 Sucralfate 1 Gm/10 Ml Udc PO 1 gm 0700,1100,1600,2200 VENTURA Administration Zinc Oxide 113 gm 04/03/23 22:35 04/07/23 05:57 Cod Liver Oil/Zinc Oxide 113 Gm Tube TOP 1 applic PRN PRN Administration Skin Care - Lab Result Fish Bone Diagrams: 04/07/23 06:15 04/07/23 06:15 - Additional Planning My Orders: My Active Orders 04/06/23 21:00 Atorvastatin [Lipitor] 40 mg PO QPM Patient Own Med 1 each PO BID 04/07/23 10:36 Loperamide [Imodium] 2 mg PO QID PRN 04/07/23 11:00 Potassium Chloride [Micro-K] 20 meq PO DAILYWM 04/08/23 05:00 CBC W/O DIFF (HEMOGRAM) [HEME] DAILYLAB Subjective - Subjective Patient Reports: Resting Comfortably Nursing Reports: Other (Diarrhea 7BMs overnight) Objective Vital Signs: Vital Signs - 24 hr 04/07/23 04/07/23 04/07/23 01:47 08:20 15:33 Temperature 36.7 C 36.4 C L 36.4 C L Heart Rate [ 56 L 48 L 59 L Brachial] Respiratory 20 18 18 Rate Blood Pressure 133/65 H 106/47 L [Left Brachial artery] Blood Pressure 140/61 H [Right Brachial artery] O2 Saturation 95 96 96 Oxygen O2 Source Room air I&O (Last 24 Hrs): Intake and Output Totals x24h 04/05/23 04/06/23 04/07/23 23:59 23:59 23:59 Intake Total 2880 3354 2530 Output Total 202 200 Balance 2678 3154 2530 General: Alert, No acute distress HEENT: EOMI, Mucous membr. moist/pink Neck: Supple, No JVD Neuro: Alert, Non Focal, Other (Poor memory. Speaks off topic.) Cardiovascular: Other (Irregularly irregular) Respiratory: No respiratory distress, Breath sounds nml Abdomen: Normal bowel sounds, Soft, No tenderness Extremities: No edema, No tenderness/swelling - Results Results: Laboratory Results WBC 6.7 x10^3/uL (4.8-10.8) 04/07/23 06:15 RBC 3.35 10^6/uL (4.20-5.40) L 04/07/23 06:15 Hgb 9.2 g/dL (12.0-16.0) L 04/07/23 06:15 Hct 29.4 % (37.0-47.0) L 04/07/23 06:15 MCV 87.8 fL (81.0-99.0) 04/07/23 06:15 MCH 27.5 pg (27.0-31.0) 04/07/23 06:15 MCHC 31.3 g/dL (32.0-36.0) L 04/07/23 06:15 RDW 16.6 % (12.0-15.0) H 04/07/23 06:15 Plt Count 143 10^3/uL (130-450) 04/07/23 06:15 MPV 10.5 fL (7.9-10.8) 04/07/23 06:15 Neut # (Auto) 4.8 10^3/uL (1.5-6.6) 04/06/23 05:10 Lymph # (Auto) 1.1 10^3/uL (1.5-3.5) L 04/06/23 05:10 [place] # (Auto) 0.4 10^3/uL (0.0-1.0) 04/06/23 05:10 Eos # (Auto) 0.2 10^3/uL (0.0-0.7) 04/06/23 05:10 Baso # (Auto) 0.0 10^3/uL (0.0-0.1) 04/06/23 05:10 Absolute Nucleated RBC 0.00 x10^3/uL 04/06/23 05:10 Nucleated RBC % 0.0 /100WBC 04/06/23 05:10 PT 13.8 secs (9.9-12.6) H 04/02/23 08:32 INR 1.3 (0.8-1.2) H 04/02/23 08:32 APTT 23.1 secs (24.9-33.3) L 04/02/23 08:32 Sodium 141 mmol/L (135-145) 04/07/23 06:15 Potassium 3.3 mmol/L (3.5-4.5) L 04/07/23 06:15 Chloride 108 mmol/L (101-111) 04/07/23 06:15 Carbon Dioxide 29 mmol/L (21-32) 04/07/23 06:15 Anion Gap 4.0 (6-13) L 04/07/23 06:15 BUN 9 mg/dL (6-20) 04/07/23 06:15 Creatinine 1.2 mg/dL (0.6-1.3) 04/07/23 06:15 Estimated GFR (MDRD) 44 (>89) L 04/07/23 06:15 Glucose 97 mg/dL (74-104) 04/07/23 06:15 Calcium 8.9 mg/dL (8.5-10.3) 04/07/23 06:15 Magnesium 1.9 mg/dL (1.7-2.3) 04/07/23 06:15 Iron 23 ug/dL (50-212) L 04/07/23 06:15 TIBC 221 ug/dL (250-450) L 04/07/23 06:15 % Saturation 10 % (20-50) L 04/07/23 06:15 Transferrin 158 mg/dL (203-362) L 04/07/23 06:15 Total Bilirubin 0.4 mg/dL (0.2-1.0) 04/05/23 04:58 AST 13 IU/L (10-42) 04/05/23 04:58 ALT 8 IU/L (10-60) L 04/05/23 04:58 Alkaline Phosphatase 35 IU/L (42-121) L 04/05/23 04:58 Total Protein 4.7 g/dL (6.4-8.9) L 04/05/23 04:58 Albumin 2.8 g/dL (3.2-5.5) L 04/05/23 04:58 Globulin 1.9 g/dL (2.1-4.2) L 04/05/23 04:58 Albumin/Globulin Ratio 1.5 (1.0-2.2) 04/05/23 04:58 Lipase 125 U/L (11-82) H 04/02/23 08:32 Stl C. diff Tox B Gene NEGATIVE (NEGATIVE) 04/06/23 10:15 Blood Type A POSITIVE 04/03/23 06:00 Blood Type Recheck A POSITIVE 04/02/23 09:08 Antibody Screen NEGATIVE 04/03/23 06:00 Crossmatch IS Only See Detail 04/03/23 06:00
[2023-04-08 05:50] LABS: MEAN CORPUSCULAR HEMOGLOBIN 27.2 pg (27.0-31.0); MEAN CORPUSCULAR VOLUME 87.6 fL (81.0-99.0); MEAN PLATELET VOLUME 10.4 fL (7.9-10.8); RED BLOOD COUNT 3.31 10^6/uL (4.20-5.40); RED CELL DISTRIBUTION WIDTH 16.6 % (12.0-15.0); WHITE BLOOD COUNT 6.2 x10^3/uL (4.8-10.8)
[2023-04-08] MEDS: hydrOXYzine PAMOATE 25 MG CAPSULE PO PRN (18:13)
--- NOTE | 2023-04-08 22:06 | PROVIDER PROGRESS NOTE ---
Assessment/Plan - Problem List (1) Duodenal ulcer Assessment/Plan: Upon admission, anticoagulation with Xarelto was discontinued. EGD revealed a duodenal ulcer. It was not actively bleeding. Continue Protonix. Continue to monitor hemoglobin and hematocrit. Patient has been transitioned to Eliquis 5 mg twice daily. (2) Anemia due to GI blood loss Continue to monitor hemoglobin/hematocrit. (3) Diverticulitis Conclusion/Plan: Patient completed a course of Zosyn and has been transition to metronidazole and ciprofloxacin. (4) Diarrhea Patient had multiple loose stools yesterday. Continue to monitor.If her hematocrit remained stable and her stool output decreases, consider discharge to [facility] facility.She is not ready for discharge given her multiple loose stools. (5) Anticoagulant long-term use Conclusion/Plan: Eliquis 5 mg twice daily. (5) HTN Continue isosorbide mononitrate, minoxidil and Lasix. (6) Chronic renal insufficiency Conclusion/Plan: Her creatinine runs 1.4-1.6 and it is in that range now The BUN is more elevated than usual which is consistent with an acute GI bleed Plan: Avoid nephrotoxins (7) Dementia Conclusion/Plan: Stable. She is very interactive, alert and oriented x 3 and is a good historian. Plan: Continue her usual Aricept - Current Meds Current Meds: Current Medications Generic Name Dose Route Start Last Admin Trade Name Cristiq PRN Reason Stop Dose Admin Acetaminophen 650 mg 04/02/23 11:42 04/08/23 00:21 Acetaminophen 325 Mg Tablet PO 650 mg Q4HR PRN Administration Pain 1 to 4, or Fever Apixaban 5 mg 04/06/23 09:01 04/08/23 20:57 Apixaban 5 Mg Tablet PO 5 mg BID VENTURA Administration Atorvastatin Calcium 40 mg 04/06/23 21:00 04/08/23 20:57 Atorvastatin 40 Mg Tablet PO 40 mg QPM VENTURA Administration Carboxymethylcellulose 2 drops 04/06/23 14:00 04/08/23 21:03 Carboxymethylcellulose Ophth Drops RIGHTEYE 2 drops TID VENTURA Administration Ciprofloxacin 250 mg 04/05/23 21:00 04/08/23 20:57 Ciprofloxacin 250 Mg Tablet PO 250 mg BID VENTURA Administration Donepezil HCl 10 mg 04/02/23 21:00 04/08/23 20:56 Donepezil 5 Mg Tablet PO 10 mg QPM VENTURA Administration Furosemide 20 mg 04/06/23 09:00 04/08/23 20:58 Furosemide 40 Mg Tablet PO 20 mg BID VENTURA Administration Hydroxyzine Pamoate 25 mg 04/02/23 11:45 04/08/23 18:13 Hydroxyzine Pamoate 25 Mg Capsule PO 25 mg HS PRN Administration ITCHING Isosorbide Mononitrate 60 mg 04/03/23 09:00 04/08/23 08:45 Isosorbide Mononitrate Er 30 Mg Tablet PO 60 mg DAILY VENTURA Administration Loperamide HCl 2 mg 04/07/23 10:36 04/07/23 13:06 Loperamide 2 Mg Capsule PO 2 mg QID PRN Administration Diarrhea Metronidazole 500 mg 04/05/23 12:00 04/08/23 16:52 Metronidazole 250 Mg Tablet PO 500 mg TIDWM VENTURA Administration Multi-Ingredient Ointment 1 applic 04/03/23 22:36 04/07/23 05:57 Zinc Oxide 20% Oint 30 Gm Tube TOP 1 applic PRN PRN Administration Skin Care Pantoprazole Sodium 40 mg 04/05/23 21:00 04/08/23 20:57 Pantoprazole 40 Mg Tablet PO 40 mg BID VENTURA Administration Patient Own Med ( 1 each 04/06/23 21:00 04/08/23 20:59 Minoxidil) PO 1 each BID VENTURA Administration Potassium Chloride 20 meq 04/07/23 11:00 04/08/23 08:46 Potassium Chloride 10 Meq Capsule PO 20 meq DAILYWM VENTURA Administration Sodium Chloride 10 ml 04/02/23 17:00 04/08/23 16:52 Sodium Chloride Flush 0.9% 10 Ml Syringe IVP 10 ml 0100,0900,1700 VENTURA Administration Sucralfate 1 gm 04/04/23 16:00 04/08/23 21:03 Sucralfate 1 Gm/10 Ml Udc PO 1 gm 0700,1100,1600,2200 VENTURA Administration Zinc Oxide 113 gm 04/03/23 22:35 04/08/23 08:43 Cod Liver Oil/Zinc Oxide 113 Gm Tube TOP 1 applic PRN PRN Administration Skin Care - Lab Result Fish Bone Diagrams: 04/08/23 05:35 04/07/23 06:15 Subjective - Subjective Patient Reports: Other (Alert. Following commands. She reports she had multiple loose stools yesterday.She denies chest pain, shortness of breath and abdominal pain.) Objective Vital Signs: Vital Signs - 24 hr 04/08/23 04/08/23 04/08/23 00:10 08:10 15:39 Temperature 37.2 C 36.7 C 36.1 C L Heart Rate [ 63 55 L 62 Brachial] Respiratory 16 18 18 Rate Blood Pressure 125/60 130/64 100/44 L [Right Brachial artery] O2 Saturation 96 93 98 04/08/23 16:46 Temperature Heart Rate [ Brachial] Respiratory Rate Blood Pressure 115/49 L [Right Brachial artery] O2 Saturation Oxygen O2 Source Room air I&O (Last 24 Hrs): Intake and Output Totals x24h 04/06/23 04/07/23 04/08/23 23:59 23:59 23:59 Intake Total 3354 2780 2260 Output Total 200 100 Balance 3154 2780 2160 General: Alert, No acute distress HEENT: Atraumatic Neck: No JVD Neuro: Alert, Non Focal Cardiovascular: Normal S1, Normal S2, No murmurs Respiratory: Other (Good air exchange in all lung cooney no wheezing no crackles.) Abdomen: Normal bowel sounds, Soft, No tenderness Extremities: No cyanosis, No edema Skin: No rashes - Results Results: Laboratory Results WBC 6.2 x10^3/uL (4.8-10.8) 04/08/23 05:35 RBC 3.31 10^6/uL (4.20-5.40) L 04/08/23 05:35 Hgb 9.0 g/dL (12.0-16.0) L 04/08/23 05:35 Hct 29.0 % (37.0-47.0) L 04/08/23 05:35 MCV 87.6 fL (81.0-99.0) 04/08/23 05:35 MCH 27.2 pg (27.0-31.0) 04/08/23 05:35 MCHC 31.0 g/dL (32.0-36.0) L 04/08/23 05:35 RDW 16.6 % (12.0-15.0) H 04/08/23 05:35 Plt Count 150 10^3/uL (130-450) 04/08/23 05:35 MPV 10.4 fL (7.9-10.8) 04/08/23 05:35 Neut # (Auto) 4.8 10^3/uL (1.5-6.6) 04/06/23 05:10 Lymph # (Auto) 1.1 10^3/uL (1.5-3.5) L 04/06/23 05:10 [place] # (Auto) 0.4 10^3/uL (0.0-1.0) 04/06/23 05:10 Eos # (Auto) 0.2 10^3/uL (0.0-0.7) 04/06/23 05:10 Baso # (Auto) 0.0 10^3/uL (0.0-0.1) 04/06/23 05:10 Absolute Nucleated RBC 0.00 x10^3/uL 04/06/23 05:10 Nucleated RBC % 0.0 /100WBC 04/06/23 05:10 PT 13.8 secs (9.9-12.6) H 04/02/23 08:32 INR 1.3 (0.8-1.2) H 04/02/23 08:32 APTT 23.1 secs (24.9-33.3) L 04/02/23 08:32 Sodium 141 mmol/L (135-145) 04/07/23 06:15 Potassium 3.3 mmol/L (3.5-4.5) L 04/07/23 06:15 Chloride 108 mmol/L (101-111) 04/07/23 06:15 Carbon Dioxide 29 mmol/L (21-32) 04/07/23 06:15 Anion Gap 4.0 (6-13) L 04/07/23 06:15 BUN 9 mg/dL (6-20) 04/07/23 06:15 Creatinine 1.2 mg/dL (0.6-1.3) 04/07/23 06:15 Estimated GFR (MDRD) 44 (>89) L 04/07/23 06:15 Glucose 97 mg/dL (74-104) 04/07/23 06:15 Calcium 8.9 mg/dL (8.5-10.3) 04/07/23 06:15 Magnesium 1.9 mg/dL (1.7-2.3) 04/07/23 06:15 Iron 23 ug/dL (50-212) L 04/07/23 06:15 TIBC 221 ug/dL (250-450) L 04/07/23 06:15 % Saturation 10 % (20-50) L 04/07/23 06:15 Transferrin 158 mg/dL (203-362) L 04/07/23 06:15 Ferritin 77.9 ng/mL (11.0-306.8) 04/08/23 05:35 Total Bilirubin 0.4 mg/dL (0.2-1.0) 04/05/23 04:58 AST 13 IU/L (10-42) 04/05/23 04:58 ALT 8 IU/L (10-60) L 04/05/23 04:58 Alkaline Phosphatase 35 IU/L (42-121) L 04/05/23 04:58 Total Protein 4.7 g/dL (6.4-8.9) L 04/05/23 04:58 Albumin 2.8 g/dL (3.2-5.5) L 04/05/23 04:58 Globulin 1.9 g/dL (2.1-4.2) L 04/05/23 04:58 Albumin/Globulin Ratio 1.5 (1.0-2.2) 04/05/23 04:58 Lipase 125 U/L (11-82) H 04/02/23 08:32 Stl C. diff Tox B Gene NEGATIVE (NEGATIVE) 04/06/23 10:15 Blood Type A POSITIVE 04/03/23 06:00 Blood Type Recheck A POSITIVE 04/02/23 09:08 Antibody Screen NEGATIVE 04/03/23 06:00 Crossmatch IS Only See Detail 04/03/23 06:00
[2023-04-09 05:15] LABS: BASOPHILS % (AUTO) 0.5 %; EOSINOPHILS # (AUTO) 0.2 10^3/uL (0.0-0.7); EOSINOPHILS % (AUTO) 2.7 %; HCT - HEMATOCRIT 28.3 % (37.0-47.0); HGB - HEMOGLOBIN 8.7 g/dL (12.0-16.0); LYMPHOCYTES # (AUTO) 1.3 10^3/uL (1.5-3.5); LYMPHOCYTES % (AUTO) 23.1 %; MEAN CORPUSCULAR HEMOGLOBIN 27.2 pg (27.0-31.0); MEAN CORPUSCULAR HGB CONC 30.7 g/dL (32.0-36.0); MEAN CORPUSCULAR VOLUME 88.4 fL (81.0-99.0); MEAN PLATELET VOLUME 10.1 fL (7.9-10.8); MONOCYTES # (AUTO) 0.4 10^3/uL (0.0-1.0); MONOCYTES % (AUTO) 6.7 %; NEUTROPHILS # (AUTO) 3.7 10^3/uL (1.5-6.6); NEUTROPHILS % (AUTO) 66.6 %; PLT - PLATELET COUNT 158 10^3/uL (130-450); RED CELL DISTRIBUTION WIDTH 16.8 % (12.0-15.0); WHITE BLOOD COUNT 5.5 x10^3/uL (4.8-10.8)
[2023-04-09 05:35] LABS: CALCIUM 8.8 mg/dL (8.5-10.3); CREATININE 1.3 mg/dL (0.6-1.3); MAGNESIUM 1.9 mg/dL (1.7-2.3); POTASSIUM 3.8 mmol/L (3.5-4.5)
[2023-04-09] MEDS ORDERED: LIDOCAINE PATCH 5% TOP PRN (16:52)
--- NOTE | 2023-04-09 21:26 | PROVIDER PROGRESS NOTE ---
Assessment/Plan - Problem List (1) Duodenal ulcer Assessment/Plan: Upon admission, anticoagulation with Xarelto was discontinued. EGD revealed a duodenal ulcer. It was not actively bleeding. Continue Protonix. Continue to monitor hemoglobin and hematocrit. Patient has been transitioned to Eliquis 5 mg twice daily. (2) Anemia due to GI blood loss Continue to monitor hemoglobin/hematocrit. (3) Diverticulitis Conclusion/Plan: Patient completed a course of Zosyn and has been transitioned to metronidazole and ciprofloxacin. (4) Diarrhea Patient had multiple loose stools yesterday. Continue to monitor. [facility].She is not ready for discharge given her multiple loose stools. (5) Anticoagulant long-term use Conclusion/Plan: Eliquis 5 mg twice daily. (5) HTN Continue isosorbide mononitrate, minoxidil and Lasix. (6) Chronic renal insufficiency Conclusion/Plan: Her creatinine runs 1.3-1.6 and it is in that range now The BUN is more elevated than usual which is consistent with an acute GI bleed Plan: Avoid nephrotoxins (7) Dementia Conclusion/Plan: Stable. Plan: Continue her usual Aricept - Current Meds Current Meds: Current Medications Generic Name Dose Route Start Last Admin Trade Name Freq PRN Reason Stop Dose Admin Acetaminophen 650 mg 04/02/23 11:42 04/08/23 00:21 Acetaminophen 325 Mg Tablet PO 650 mg Q4HR PRN Administration Pain 1 to 4, or Fever Apixaban 5 mg 04/06/23 09:01 04/09/23 21:08 Apixaban 5 Mg Tablet PO 5 mg BID VENTURA Administration Atorvastatin Calcium 40 mg 04/06/23 21:00 04/09/23 21:08 Atorvastatin 40 Mg Tablet PO 40 mg QPM VENTURA Administration Carboxymethylcellulose 2 drops 04/06/23 14:00 04/09/23 21:13 Carboxymethylcellulose Ophth Drops RIGHTEYE 2 drops TID VENTURA Administration Ciprofloxacin 250 mg 04/05/23 21:00 04/09/23 21:08 Ciprofloxacin 250 Mg Tablet PO 250 mg BID VENTURA Administration Donepezil HCl 10 mg 04/02/23 21:00 04/09/23 21:08 Donepezil 5 Mg Tablet PO 10 mg QPM VENTURA Administration Furosemide 20 mg 04/06/23 09:00 04/09/23 21:09 Furosemide 40 Mg Tablet PO 20 mg BID VENTURA Administration Hydroxyzine Pamoate 25 mg 04/02/23 11:45 04/08/23 18:13 Hydroxyzine Pamoate 25 Mg Capsule PO 25 mg HS PRN Administration ITCHING Isosorbide Mononitrate 60 mg 04/03/23 09:00 04/09/23 08:40 Isosorbide Mononitrate Er 30 Mg Tablet PO 60 mg DAILY VENTURA Administration Loperamide HCl 2 mg 04/07/23 10:36 04/07/23 13:06 Loperamide 2 Mg Capsule PO 2 mg QID PRN Administration Diarrhea Metronidazole 500 mg 04/05/23 12:00 04/09/23 16:28 Metronidazole 250 Mg Tablet PO 500 mg TIDWM VENTURA Administration Multi-Ingredient Ointment 1 applic 04/03/23 22:36 04/09/23 08:39 Zinc Oxide 20% Oint 30 Gm Tube TOP 1 applic PRN PRN Administration Skin Care Pantoprazole Sodium 40 mg 04/05/23 21:00 04/09/23 21:09 Pantoprazole 40 Mg Tablet PO 40 mg BID VENTURA Administration Patient Own Med ( 1 each 04/06/23 21:00 04/09/23 21:09 Minoxidil) PO 1 each BID VENTURA Administration Potassium Chloride 20 meq 04/07/23 11:00 04/09/23 08:40 Potassium Chloride 10 Meq Capsule PO 20 meq DAILYWM VENTURA Administration Sodium Chloride 10 ml 04/02/23 17:00 04/09/23 16:29 Sodium Chloride Flush 0.9% 10 Ml Syringe IVP 10 ml 0100,0900,1700 VENTURA Administration Sucralfate 1 gm 04/04/23 16:00 04/09/23 21:15 Sucralfate 1 Gm/10 Ml Udc PO 1 gm 0700,1100,1600,2200 VENTURA Administration Zinc Oxide 113 gm 04/03/23 22:35 04/09/23 08:39 Cod Liver Oil/Zinc Oxide 113 Gm Tube TOP 1 applic PRN PRN Administration Skin Care - Lab Result Fish Bone Diagrams: 04/09/23 04:54 04/09/23 04:54 Subjective - Subjective Patient Reports: Other (Alert. Following commands. Multiple loose stools have decreased in frequency. She denies chest pain, shortness of breath and abdominal pain. No other complaints at this time.) Objective Vital Signs: Vital Signs - 24 hr 04/09/23 04/09/23 04/09/23 06:24 08:03 18:00 Temperature 36.7 C 36.7 C 37.0 C Heart Rate [ 76 57 L 74 Brachial] Respiratory 18 18 22 Rate Blood Pressure 105/59 L [Left Brachial artery] Blood Pressure 125/60 119/54 L [Right Brachial artery] O2 Saturation 94 97 95 Oxygen O2 Source Room air I&O (Last 24 Hrs): Intake and Output Totals x24h 04/07/23 04/08/23 04/09/23 23:59 23:59 23:59 Intake Total 2780 2580 720 Output Total 100 575 Balance 2780 2480 145 General: Alert, No acute distress HEENT: Atraumatic Neck: No JVD, No thyromegaly Neuro: Alert, Non Focal Cardiovascular: Regular rate, Normal S1, Normal S2 Respiratory: Other (Good air exchange in all lung cooney no wheezing no crackles.) Extremities: No cyanosis, No edema Skin: No rashes - Results Results: Laboratory Results WBC 5.5 x10^3/uL (4.8-10.8) 04/09/23 04:54 RBC 3.20 10^6/uL (4.20-5.40) L 04/09/23 04:54 Hgb 8.7 g/dL (12.0-16.0) L 04/09/23 04:54 Hct 28.3 % (37.0-47.0) L 04/09/23 04:54 MCV 88.4 fL (81.0-99.0) 04/09/23 04:54 MCH 27.2 pg (27.0-31.0) 04/09/23 04:54 MCHC 30.7 g/dL (32.0-36.0) L 04/09/23 04:54 RDW 16.8 % (12.0-15.0) H 04/09/23 04:54 Plt Count 158 10^3/uL (130-450) 04/09/23 04:54 MPV 10.1 fL (7.9-10.8) 04/09/23 04:54 Neut # (Auto) 3.7 10^3/uL (1.5-6.6) 04/09/23 04:54 Lymph # (Auto) 1.3 10^3/uL (1.5-3.5) L 04/09/23 04:54 [place] # (Auto) 0.4 10^3/uL (0.0-1.0) 04/09/23 04:54 Eos # (Auto) 0.2 10^3/uL (0.0-0.7) 04/09/23 04:54 Baso # (Auto) 0.0 10^3/uL (0.0-0.1) 04/09/23 04:54 Absolute Nucleated RBC 0.00 x10^3/uL 04/09/23 04:54 Nucleated RBC % 0.0 /100WBC 04/09/23 04:54 PT 13.8 secs (9.9-12.6) H 04/02/23 08:32 INR 1.3 (0.8-1.2) H 04/02/23 08:32 APTT 23.1 secs (24.9-33.3) L 04/02/23 08:32 Sodium 140 mmol/L (135-145) 04/09/23 04:54 Potassium 3.8 mmol/L (3.5-4.5) 04/09/23 04:54 Chloride 109 mmol/L (101-111) 04/09/23 04:54 Carbon Dioxide 28 mmol/L (21-32) 04/09/23 04:54 Anion Gap 3.0 (6-13) L 04/09/23 04:54 BUN 18 mg/dL (6-20) 04/09/23 04:54 Creatinine 1.3 mg/dL (0.6-1.3) 04/09/23 04:54 Estimated GFR (MDRD) 40 (>89) L 04/09/23 04:54 Glucose 88 mg/dL (74-104) 04/09/23 04:54 Calcium 8.8 mg/dL (8.5-10.3) 04/09/23 04:54 Phosphorus 3.0 mg/dL (2.5-5.0) 04/09/23 04:54 Magnesium 1.9 mg/dL (1.7-2.3) 04/09/23 04:54 Iron 23 ug/dL (50-212) L 04/07/23 06:15 TIBC 221 ug/dL (250-450) L 04/07/23 06:15 % Saturation 10 % (20-50) L 04/07/23 06:15 Transferrin 158 mg/dL (203-362) L 04/07/23 06:15 Ferritin 77.9 ng/mL (11.0-306.8) 04/08/23 05:35 Total Bilirubin 0.4 mg/dL (0.2-1.0) 04/05/23 04:58 AST 13 IU/L (10-42) 04/05/23 04:58 ALT 8 IU/L (10-60) L 04/05/23 04:58 Alkaline Phosphatase 35 IU/L (42-121) L 04/05/23 04:58 Total Protein 4.7 g/dL (6.4-8.9) L 04/05/23 04:58 Albumin 2.8 g/dL (3.2-5.5) L 04/05/23 04:58 Globulin 1.9 g/dL (2.1-4.2) L 04/05/23 04:58 Albumin/Globulin Ratio 1.5 (1.0-2.2) 04/05/23 04:58 Lipase 125 U/L (11-82) H 04/02/23 08:32 Stl C. diff Tox B Gene NEGATIVE (NEGATIVE) 04/06/23 10:15 Blood Type A POSITIVE 04/03/23 06:00 Blood Type Recheck A POSITIVE 04/02/23 09:08 Antibody Screen NEGATIVE 04/03/23 06:00 Crossmatch IS Only See Detail 04/03/23 06:00
[2023-04-10 07:58] LABS: HCT - HEMATOCRIT 30.9 % (37.0-47.0); HGB - HEMOGLOBIN 9.3 g/dL (12.0-16.0)
--- NOTE | 2023-04-10 09:00 | Discharge Plan ---
"Discharge Plan for SNF / [facility] - Discharge Plan And Transition Orders Problem Reviewed?: Yes Disposition: 03 SNF DC/Xfer Condition: Stable Allergies and Adverse Reactions: Allergies Allergy/AdvReac Type Severity Reaction Status Date / Time aspirin Allergy Unknown Verified 04/02/23 08:32 cortisone Allergy Hives Verified 04/02/23 08:32 gabapentin [From Neurontin] Allergy Rash Verified 04/02/23 08:32 lisinopril Allergy Unknown Verified 04/02/23 08:32 Health Concerns: History of Present Illness per Dr. Shah on admission: This is a 72-year-old female with history of 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 MRI of the brain and CT of the brain confirmed previous bibasilar strokes. She had cognitive deficits, ataxia, weakness and went to live in an assisted living facility. She continues to take Xarelto. She was brought in today from the skilled nursing because she vomited blood and coffee-grounds, and also had a maroon bowel movement. In the ER her workup showed hemoglobin of 11.9, stable vital signs without tachycardia, stool guaiac test was positive. A repeat hemoglobin was done several hours later and remained stable at 11.9. Her abdomen CTA showed no areas of contrast extravasation and was read as having diverticulitis. The ED provider spoke to the General Surgeon who said she would do consultation and EGD. The ED provider then spoke to me on the Hospitalist service to have this patient brought in for evaluating and treating a GI bleed. I spoke to the patient about her CODE BLUE wishes and she wants to be a DNR. Hospital Course: The patient was admitted to the hospital and treatment was initiated for a gastrointestinal hemorrhage with IV Protonix. General surgery was consulted and it was Dr. Beti Caba impression that the patient should undergo a EGD. During her admission she received 2 unit of packed red blood cells. EGD demonstrated a duodenal ulcer and adjacent duodenitis, mild gastritis, and mild esophagitis. EGD did not demonstrate any evidence of active hemorrhage. Biopsies were taken of the duodenum, antrum and GE junction. Biopsy was negative for H. pylori. Gastroesophageal junction is negative for goblet cell metaplasia. CT scan of the abdomen pelvis performed on April 02, 2023 revealed a left colonic colitis most likely secondary to diverticulitis. Patient has completed a course of antibiotics in hospital. On hospital day #4, she was transitioned from IV Protonix to p.o. Protonix. Recommend 8 week course Protonix and Sucralfate and reevaluate the need for these medications at that time. Anticoagulation was reinitiated with Eliquis 5 mg twice daily. Her hematocrit has remained stable. During her hospitalization she was treated for diverticulitis initially with IV Zosyn and then transition to ciprofloxacin and metronidazole. She has completed her course of antibiotics. Hospital course was complicated by diarrhea of unknown etiology. Her symptoms have resolved. Patient has a history of a hypercoagulable state that resulted in stroke in the past and should remain on Eliquis unless there is a contraindication. Plan of Treatment: 1. Continue all medications a prescribed. Care Goals: Goals of care is to continue to work with PT/OT to improve level of functioning. She is most likely will continue to require a nursing facility and unlikely to return to home. Assessment: (1) Duodenal ulcer Assessment/Plan: Upon admission, anticoagulation with Xarelto was discontinued. EGD revealed a duodenal ulcer. It was not actively bleeding. Continue Protonix for 8 weeks. Patient has been transitioned to Eliquis 5 mg twice daily. Recommend monitoring hemoglobin and hematocrit in 3-5 days and as needed. (2) Anemia due to GI blood loss Continue to monitor hemoglobin/hematocrit as needed. (3) Diverticulitis Conclusion/Plan: Patient completed a course of Zosyn and has been transitioned to metronidazole and ciprofloxacin. She has completed her course of antibiotics. (4) Diarrhea Resolved. (5) Anticoagulant long-term use Conclusion/Plan: Eliquis 5 mg twice daily. (5) HTN Continue isosorbide mononitrate, minoxidil and Lasix. (6) Chronic renal insufficiency Conclusion/Plan: Her creatinine runs 1.3-1.6 and it is in that range now Avoid nephrotoxins - SNF / [facility] Transition Orders Admit to (Facility): [facility] Discharge Diagnosis: (1) Duodenal ulcer (2) Anemia due to GI blood loss (3) Diverticulitis (4) Diarrhea (5) Anticoagulant long-term use (6) HTN (7) Chronic renal insufficiency Medicare Certification Statement: I certify that Post Hospital long-term care is medically necessary on a continuing basis for any of the conditions for which she/he is receiving care during hospitalization. Notify PCP of admission and forward orders to primary provider for signature. Weight on admission and: Weekly Other Notification Orders: Call PCP immediately if patient develops dyspnea, chest pain/tightness or edema. House Bowel Program: Yes Additional Bowel Program Orders: If no BM after 2 days, nurse may give M.O.M. 30ml PO PRN and/or ducolax Supp 1 [place] and/or ANAHI 250mg P.O., and/or senna 1-2 tabs PO. On day 3 nurse may give repeat above order until residents constipation is resolved. Annual Influenza Vaccine (between Oct 11 and May 10): Yes Two-step PPD per [facility] [phone] or approved exception documents: Yes Medication Orders: PLEASE REFER TO THE DISCHARGE MEDICATION LIST. - Medications New Prescriptions: Sucralfate [Carafate] 1 gm PO 0700,1100,1600,2200 #12 ea Apixaban [Eliquis] 5 mg PO BID #60 tablet Pantoprazole [Protonix] 40 mg PO BID #60 tab - Diet Type: Soft Texture: Regular Liquids: Thin May have monthly special meal: Yes - Therapies | Activity Therapy: Evaluation | Treat if indicated: PT, OT Rehabilitation Potential: Maximize functional status Activity: Activity as Tolerated Weight Bearing: Full Weight Assistance Devices: Walker Follow Up: Follow-up with Sukhwinder Murphy"
[2023-04-10 12:12] VITALS: BP 146/62; O2SAT 94
--- NOTE | 2023-04-15 10:16 | DISCHARGE SUMMARY ---
"Discharge Summary Admit Date: 04/02/23 Discharge Date: 04/10/23 Discharging Provider: Casa Montes MD Code Status: Do Not Attempt Resuscitation Condition at Discharge: Stable Discharge Disposition: 03 SNF DC/Xfer Discharge Facility Name: [facility] - DIAGNOSES Admission Diagnoses: (1) Upper GI bleeding (2) Anticoagulant long-term use (3) Chronic renal insufficiency (4) Dementia (5) Diverticulitis Discharge Diagnoses with Status of Each Condition: (1) Duodenal ulcer (2) Anemia due to GI blood loss (3) Diverticulitis (4) Diarrhea (5) Anticoagulant long-term use (5) HTN (6) Chronic renal insufficiency (7) Dementia - HPI History of Present Illness: This is a 72-year-old female with history of 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 MRI of the brain and CT of the brain confirmed previous bibasilar strokes. She had cognitive deficits, ataxia, weakness and went to live in an assisted living facility. She continues to take Xarelto. She was brought in today from the retirement because she vomited blood and coffee-grounds, and also had a maroon bowel movement. In the ER her workup showed hemoglobin of 11.9, stable vital signs without tachycardia, stool guaiac test was positive. A repeat hemoglobin was done several hours later and remained stable at 11.9. Her abdomen CTA showed no areas of contrast extravasation and was read as having diverticulitis. The ED provider spoke to the General Surgeon who said she would do consultation and EGD. The ED provider then spoke to me on the Hospitalist service to have this patient brought in for evaluating and treating a GI bleed. I spoke to the patient about her CODE BLUE wishes and she wants to be a DNR. - CONSULTS | PROCEDURES Consultations: 04/02/2023 General Surgery (Dr. Beti Caba) Procedures: 04/02/2023 Endoscopy - HOSPITAL COURSE Hospital Course: The patient was admitted to the hospital and treatment was initiated for a gastrointestinal hemorrhage with IV Protonix. General surgery was consulted and it was Dr. Beti Caba impression that the patient should undergo a EGD. During her admission she received 2 unit of packed red blood cells. EGD demonstrated a duodenal ulcer and adjacent duodenitis, mild gastritis, and mild esophagitis. EGD did not demonstrate any evidence of active hemorrhage. Biopsies were taken of the duodenum, antrum and GE junction. Biopsy was negative for H. pylori. Gastroesophageal junction is negative for goblet cell metaplasia. CT scan of the abdomen pelvis performed on April 02, 2023 revealed a left colonic colitis most likely secondary to diverticulitis. Patient has completed a course of antibiotics in hospital. On hospital day #4, she was transitioned from IV Protonix to p.o. Protonix. Recommend 8 week course Protonix and Sucralfate and reevaluate the need for these medications at that time. Anticoagulation was reinitiated with Eliquis 5 mg twice daily. Her hematocrit has remained stable. During her hospitalization she was treated for diverticulitis initially with IV Zosyn and then transition to ciprofloxacin and metronidazole. She has completed her course of antibiotics. Hospital course was complicated by diarrhea of unknown etiology. Her symptoms have resolved. Patient has a history of a hypercoagulable state that resulted in stroke in the past and should remain on Eliquis unless there is a contraindication. - ALLERGIES Allergies/Adverse Reactions: Allergies Allergy/AdvReac Type Severity Reaction Status Date / Time aspirin Allergy Unknown Verified 04/02/23 08:32 cortisone Allergy Hives Verified 04/02/23 08:32 gabapentin [From Neurontin] Allergy Rash Verified 04/02/23 08:32 lisinopril Allergy Unknown Verified 04/02/23 08:32 - MEDICATIONS Home Medications: Ambulatory Orders Medication Instructions Recorded Confirmed Albuterol Sulf [Ventolin Hfa 1 - 2 puffs INH Q4HR PRN 03/14/22 04/02/23 Inhaler] Donepezil HCl [Aricept] 10 mg PO QPM 03/14/22 04/02/23 Isosorbide Mononitrate [Isosorbide 60 mg PO DAILY 03/14/22 04/02/23 Mononitrate ER] Potassium Chloride 20 meq PO DAILY 03/14/22 04/02/23 Atorvastatin [Lipitor] 40 mg PO QPM 05/22/22 04/02/23 Furosemide [Lasix] 20 mg PO BID 05/22/22 04/02/23 Acetaminophen [Tylenol] 650 mg PO Q4HR PRN tab 05/24/22 04/02/23 Senna [Senokot] 17.2 mg PO DAILY PRN 06/29/22 04/02/23 Lidocaine Patch 5% [Lidoderm Patch] 1 patch TOP DAILY PRN #10 patch 09/26/22 04/02/23 Bisacodyl Supp [Dulcolax Supp] 10 mg CO DAILY PRN 11/12/22 04/02/23 Melatonin 3 mg PO HS PRN 11/12/22 04/02/23 Mineral Oil [Mineral Oil Enema] 1 ea RC PRN PRN 11/12/22 04/02/23 Sertraline [Zoloft] 25 mg PO DAILY 11/12/22 04/02/23 polyethylene glycoL 3350 [Miralax] 17 gm PO DAILY PRN 11/12/22 04/02/23 Carboxymethylcellulose 1% Opht 2 drops RIGHTEYE TID 03/22/23 04/02/23 [Refresh 1% Ophth Drops] Ketotifen Fumarate [Eye Itch 2 drops RIGHTEYE TID 03/22/23 04/02/23 Relief] diphenhydrAMINE [Benadryl] 25 mg PO Q6H PRN 03/22/23 04/02/23 traMADol [Ultram] 25 mg PO DAILY PRN 03/22/23 04/02/23 guaiFENesin [Giltuss Ex] 200 mg PO Q4H PRN 04/02/23 04/02/23 Apixaban [Eliquis] 5 mg PO BID #60 tablet 04/03/23 Apixaban [Eliquis] 5 mg PO BID tab 04/10/23 Pantoprazole [Protonix] 40 mg PO BID #60 tab 04/10/23 Sucralfate [Carafate] 1 gm PO 0700,1100,1600,2200 #12 ea 04/10/23 - PHYSICAL EXAM AT DISCHARGE General Appearance: positive: No acute distress, Alert Eyes Bilateral: positive: No scleral icterus Neck: positive: Thyroid nml, No JVD, Trachea midline Respiratory: positive: Other (Good air exchange in all lung cooney no wheezing no crackles.) Cardiovascular: positive: Other (Positive S1-S2 no extra heart sounds.) Abdomen: positive: Other (Soft nontender nondistended positive bowel sounds) Skin: positive: No rash - LABS Result Diagrams: 04/10/23 07:53 04/09/23 04:54 - FOLLOW UP Follow Up: Follow-up with Sukhwinder Perez MD - TIME SPENT Time Spent in Discharge (Minutes): 28"
== END 2023-04-10 13:15 | DRG 378 ==
LOC: EDUNIT# → ED 08:24 → MS2 11:42 → OBSVTOIN 04-03 09:05
PROVIDERS: ADMIT Internal Medicine; ATTEND Internal Medicine
PROC: 30233N1 Transfusion of Nonautologous Red Blood Cells into Peripheral Vein, Percutaneous Approach (ICD-10-PCS; principal; 2023-04-04)
DX: K92.2 Gastrointestinal hemorrhage, unspecified (principal); K26.4 Chronic or unspecified duodenal ulcer with hemorrhage; D68.59 Other primary thrombophilia; G30.9 Alzheimer's disease, unspecified; F02.80 Dementia in other diseases classified elsewhere, unspecified severity, without behavioral disturbance, psychotic disturbance, mood disturbance, and anxiety; I13.0 Hypertensive heart and chronic kidney disease with heart failure and stage 1 through stage 4 chronic kidney disease, or unspecified chronic kidney disease; K57.33 Diverticulitis of large intestine without perforation or abscess with bleeding; K29.70 Gastritis, unspecified, without bleeding; K29.80 Duodenitis without bleeding; K20.90 Esophagitis, unspecified without bleeding; T45.515A Adverse effect of anticoagulants, initial encounter; Z86.73 Personal history of transient ischemic attack (TIA), and cerebral infarction without residual deficits; K44.9 Diaphragmatic hernia without obstruction or gangrene; D50.0 Iron deficiency anemia secondary to blood loss (chronic); R19.7 Diarrhea, unspecified; F03.90 Unspecified dementia, unspecified severity, without behavioral disturbance, psychotic disturbance, mood disturbance, and anxiety; E11.22 Type 2 diabetes mellitus with diabetic chronic kidney disease; N18.9 Chronic kidney disease, unspecified; I50.9 Heart failure, unspecified; Z79.82 Long term (current) use of aspirin; Z88.8 Allergy status to other drugs, medicaments and biological substances; Z86.718 Personal history of other venous thrombosis and embolism; Z66 Do not resuscitate; Z87.891 Personal history of nicotine dependence; Z79.01 Long term (current) use of anticoagulants
CPT/HCPCS: 36415; 74174; 80048; 80053; 82272; 82728; 83540; 83690; 83735; 84100; 84466; 85014; 85018; 85025; 85027; 85610; 85730; 86850; 86900; 86901; 86920; 87493; 96365; 96366; 96375; 96376; 97116; 97162; 97166; 97530; 99284; 99285; A9270; J7120; P9016; Q9967

== ENCOUNTER 2023-04-24 22:24 | Outpatient (CLI) | payer MEDICARE, OTHER | END 2023-04-24 23:59 | disposition critical access hospital (66) | LOC: EMS 22:24 | DX: S69.92XA Unspecified injury of left wrist, hand and finger(s), initial encounter (principal); W19.XXXA Unspecified fall, initial encounter | CPT/HCPCS: A0425; A0429 ==

== ENCOUNTER 2023-04-24 22:32 | Emergency (ER) | payer MEDICARE, OTHER ==
[2023-04-24 22:59] VITALS: O2SAT 99
--- NOTE | 2023-04-25 01:31 | ED Physician Documentation ---
History of Present Illness - Stated complaint Stated Complaint: FALL - Chief complaint Chief Complaint: Laceration - History obtained from History obtained from: Patient, EMS - Additonal information Additional information: 72-year-old woman presents status post mechanical trip and fall from [facility]. Patient states that she was try to go to the bathroom and tripped, skinning her left hand and falling on L buttock. denies injury. 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 : None HEENT: None Psych: None Musculoskeletal: Hemiplegia Derm: None - Past Surgical History Past Surgical History: Yes General: Other Ortho: Arthroscopic surgery /BLOW MOLDING MACHINE OPERATOR: Hysterectomy Neuro: Craniotomy - Present Medications Home Medications: Ambulatory Orders Medication Instructions Recorded Confirmed Albuterol Sulf [Ventolin Hfa 1 - 2 puffs INH Q4HR PRN 03/14/22 04/02/23 Inhaler] Donepezil HCl [Aricept] 10 mg PO QPM 03/14/22 04/02/23 Isosorbide Mononitrate [Isosorbide 60 mg PO DAILY 03/14/22 04/02/23 Mononitrate ER] Potassium Chloride 20 meq PO DAILY 03/14/22 04/02/23 Atorvastatin [Lipitor] 40 mg PO QPM 05/22/22 04/02/23 Furosemide [Lasix] 20 mg PO BID 05/22/22 04/02/23 Acetaminophen [Tylenol] 650 mg PO Q4HR PRN tab 05/24/22 04/02/23 Senna [Senokot] 17.2 mg PO DAILY PRN 06/29/22 04/02/23 Lidocaine Patch 5% [Lidoderm Patch] 1 patch TOP DAILY PRN #10 patch 09/26/22 04/02/23 Bisacodyl Supp [Dulcolax Supp] 10 mg [place] DAILY PRN 11/12/22 04/02/23 Melatonin 3 mg PO HS PRN 11/12/22 04/02/23 Mineral Oil [Mineral Oil Enema] 1 ea RC PRN PRN 11/12/22 04/02/23 Sertraline [Zoloft] 25 mg PO DAILY 11/12/22 04/02/23 polyethylene glycoL 3350 [Miralax] 17 gm PO DAILY PRN 11/12/22 04/02/23 Carboxymethylcellulose 1% Opht 2 drops RIGHTEYE TID 03/22/23 04/02/23 [Refresh 1% Ophth Drops] Ketotifen Fumarate [Eye Itch 2 drops RIGHTEYE TID 03/22/23 04/02/23 Relief] diphenhydrAMINE [Benadryl] 25 mg PO Q6H PRN 03/22/23 04/02/23 traMADol [Ultram] 25 mg PO DAILY PRN 03/22/23 04/02/23 guaiFENesin [Giltuss Ex] 200 mg PO Q4H PRN 04/02/23 04/02/23 Apixaban [Eliquis] 5 mg PO BID #60 tablet 04/03/23 Apixaban [Eliquis] 5 mg PO BID tab 04/10/23 Pantoprazole [Protonix] 40 mg PO BID #60 tab 04/10/23 Sucralfate [Carafate] 1 gm PO 0700,1100,1600,2200 #12 ea 04/10/23 - Allergies Allergies/Adverse Reactions: Allergies Allergy/AdvReac Type Severity Reaction Status Date / Time aspirin Allergy Unknown Verified 04/24/23 22:50 cortisone Allergy Hives Verified 04/24/23 22:50 gabapentin [From Neurontin] Allergy Rash Verified 04/24/23 22:50 lisinopril Allergy Unknown Verified 04/24/23 22:50 - Social History Does the pt smoke?: No Smoking Status: Never smoker Does the pt drink ETOH?: No Does the pt have substance abuse?: No - Immunizations Immunizations are current?: Yes - POLST Patient has POLST: No PD ED PE NORMAL - Vitals Vital signs reviewed: Yes - General General: Alert and oriented X 3, No acute distress, Well developed/nourished - HEENT HEENT: Atraumatic, PERRL, EOMI, Moist mucous membranes, Pharynx benign - Neck Neck: Supple, no meningeal sign, No bony TTP - Cardiac Cardiac: RRR - Respiratory Respiratory: No respiratory distress, Clear bilaterally - Abdomen Abdomen: Non tender, Non distended - Back Back: No spinal TTP - Derm Derm: Normal color, Warm and dry, Other (Abrasion to right dorsum of hand) - Extremities Extremities: No deformity, Other (CSM intact all extremities) Results - Vitals Vitals: Vital Signs - 24 hr 04/24/23 04/24/23 22:47 22:50 Temperature 36.5 C Heart Rate 73 53 L Respiratory 17 16 Rate Blood Pressure 158/71 H 158/71 H O2 Saturation 98 99 Oxygen O2 Source Room air PD Medical Decision Making - ED course ED course: 72-year-old woman presents status post mechanical fall with abrasion to left hand. No other injuries. Plan to discharge home to [facility]. Return precautions given. Departure - Departure Disposition: 01 Home, Self Care Clinical Impression: Skin tear, Fall from standing Condition: Stable Instructions: ED Abrasion Comments: You were seen in the emergency department for Medical evaluation after fall. Your tetanus is up-to-date as of 2014. Please monitor your skin tear for signs of infection. Please follow-up with your primary care provider and return to the emergency department if you have any new or worsening symptoms or other concerns. Forms: PCP List
[2023-04-25 04:15] VITALS: BP 150/63
== END 2023-04-25 02:45 | disposition home or self-care (01) ==
LOC: EDUNIT# → ED 22:32
DX: S60.512A Abrasion of left hand, initial encounter (principal); W01.0XXA Fall on same level from slipping, tripping and stumbling without subsequent striking against object, initial encounter; Y92.099 Unspecified place in other non-institutional residence as the place of occurrence of the external cause; G30.9 Alzheimer's disease, unspecified; F02.80 Dementia in other diseases classified elsewhere, unspecified severity, without behavioral disturbance, psychotic disturbance, mood disturbance, and anxiety; E11.9 Type 2 diabetes mellitus without complications; Z79.84 Long term (current) use of oral hypoglycemic drugs; Z79.01 Long term (current) use of anticoagulants; Z86.718 Personal history of other venous thrombosis and embolism
CPT/HCPCS: 99283

== ENCOUNTER 2023-04-25 02:35 | Outpatient (CLI) | payer MEDICARE, OTHER | END 2023-04-25 23:59 | LOC: EMS 02:35 | PROVIDERS: ATTEND Emergency Medicine | DX: Z91.81 History of falling (principal); Z74.01 Bed confinement status | CPT/HCPCS: A0425; A0428 ==

== ENCOUNTER 2023-09-09 15:35 | Outpatient (CLI) | payer MEDICARE, OTHER | END 2023-09-09 23:59 | disposition critical access hospital (66) | LOC: EMS 15:35 | DX: T40.711A Poisoning by cannabis, accidental (unintentional), initial encounter (principal); R42 Dizziness and giddiness; I95.89 Other hypotension; Y92.099 Unspecified place in other non-institutional residence as the place of occurrence of the external cause | CPT/HCPCS: A0425; A0427 ==

== ENCOUNTER 2023-09-09 15:56 | Emergency (ER) | payer MEDICARE, OTHER ==
[2023-09-09] MEDS: SODIUM CHLORIDE 0.9% 1,000 ML IV STA (16:50)
[2023-09-09 17:04] LABS: BASOPHILS % (AUTO) 0.4 %; EOSINOPHILS # (AUTO) 0.1 10^3/uL (0.0-0.7); HCT - HEMATOCRIT 40.9 % (37.0-47.0); HGB - HEMOGLOBIN 12.3 g/dL (12.0-16.0); LYMPHOCYTES # (AUTO) 1.3 10^3/uL (1.5-3.5); LYMPHOCYTES % (AUTO) 11.9 %; MEAN CORPUSCULAR HEMOGLOBIN 25.7 pg (27.0-31.0); MEAN CORPUSCULAR HGB CONC 30.1 g/dL (32.0-36.0); MEAN CORPUSCULAR VOLUME 85.4 fL (81.0-99.0); MEAN PLATELET VOLUME 11.6 fL (7.9-10.8); MONOCYTES # (AUTO) 0.5 10^3/uL (0.0-1.0); MONOCYTES % (AUTO) 4.9 %; NEUTROPHILS # (AUTO) 8.6 10^3/uL (1.5-6.6); NEUTROPHILS % (AUTO) 81.5 %; PLT - PLATELET COUNT 187 10^3/uL (130-450); RED BLOOD COUNT 4.79 10^6/uL (4.20-5.40); RED CELL DISTRIBUTION WIDTH 15.7 % (12.0-15.0); WHITE BLOOD COUNT 10.6 x10^3/uL (4.8-10.8)
[2023-09-09] MEDS: ONDANSETRON ODT 4 MG TABLET TL STA (17:06)
--- NOTE | 2023-09-09 17:11 | XRAY Report ---
PROCEDURE: Chest 1V INDICATIONS: sob, dizzy TECHNIQUE: One view of the chest was acquired. COMPARISON: 05/30/2022, 12/14/2022 FINDINGS: Surgical changes and devices: None. Lungs and pleura: No pleural effusions or pneumothorax. Lungs are clear. Mediastinum: Mediastinal contours appear normal. Heart size is normal. 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 Overlying soft tissues appear unremarkable. IMPRESSION: No acute cardiopulmonary process. Reviewed by: Clint Weems MD on 09/09/2023 5:10 PM PDT Approved by: Clint Weems MD on 09/09/2023 5:10 PM PDT Station ID: [id number]
[2023-09-09 17:20] LABS: ALBUMIN 3.6 g/dL (3.2-5.5); ALBUMIN/GLOBULIN RATIO 1.4 (1.0-2.2); BILIRUBIN,TOTAL 0.4 mg/dL (0.2-1.0); CALCIUM 9.3 mg/dL (8.5-10.3); CREATININE 1.5 mg/dL (0.6-1.3); MAGNESIUM 1.9 mg/dL (1.7-2.3); POTASSIUM 4.3 mmol/L (3.5-4.5); TOTAL PROTEIN 6.2 g/dL (6.4-8.9)
--- NOTE | 2023-09-09 17:21 | ED Physician Documentation ---
History of Present Illness - Stated complaint Stated Complaint: DIZZY/PALE POST EDIBLES - Chief complaint Chief Complaint: Neuro - History obtained from History obtained from: Patient - History of Present Illness Timing: Prior to arrival - Additonal information Additional information: Patient is a 72-year-old female coming to the emergency department from [facility] with past medical history of hyperlipidemia, hypertension presenting to the emergency department with persistent symptoms of dizziness after she took 3 doses of marijuana. She notes her friend got her edibles and she took 3 edibles felt very dizzy shortly after and EMS was called. Patient able to provide history reports persistent symptoms of dizziness and nausea but no episodes of vomiting she notes she was feeling fine prior to taking these edibles. She denies any fevers or chills. PD PAST MEDICAL HISTORY - Past Medical History Cardiovascular: Congestive heart failure, Coronary artery disease, Deep vein thrombosis Respiratory: None Neuro: Alzhiemer's, Dementia Endocrine/Autoimmune: Type 2 diabetes GI: None EYELETTER: None : None HEENT: None Psych: None Musculoskeletal: Hemiplegia Derm: None - Past Surgical History Past Surgical History: Yes General: Other Ortho: Arthroscopic surgery /EYELETTER: Hysterectomy Neuro: Craniotomy - Present Medications Home Medications: Ambulatory Orders Medication Instructions Recorded Confirmed Albuterol Sulf [Ventolin Hfa 1 - 2 puffs INH Q4HR PRN 03/14/22 04/02/23 Inhaler] Donepezil HCl [Aricept] 10 mg PO QPM 03/14/22 04/02/23 Isosorbide Mononitrate [Isosorbide 60 mg PO DAILY 03/14/22 04/02/23 Mononitrate ER] Potassium Chloride 20 meq PO DAILY 03/14/22 04/02/23 Atorvastatin [Lipitor] 40 mg PO QPM 05/22/22 04/02/23 Furosemide [Lasix] 20 mg PO BID 05/22/22 04/02/23 Acetaminophen [Tylenol] 650 mg PO Q4HR PRN tab 05/24/22 04/02/23 Senna [Senokot] 17.2 mg PO DAILY PRN 06/29/22 04/02/23 Lidocaine Patch 5% [Lidoderm Patch] 1 patch TOP DAILY PRN #10 patch 09/26/22 04/02/23 Bisacodyl Supp [Dulcolax Supp] 10 mg [place] DAILY PRN 11/12/22 04/02/23 Melatonin 3 mg PO HS PRN 11/12/22 04/02/23 Mineral Oil [Mineral Oil Enema] 1 ea RC PRN PRN 11/12/22 04/02/23 Sertraline [Zoloft] 25 mg PO DAILY 11/12/22 04/02/23 polyethylene glycoL 3350 [Miralax] 17 gm PO DAILY PRN 11/12/22 04/02/23 Carboxymethylcellulose 1% Opht 2 drops RIGHTEYE TID 03/22/23 04/02/23 [Refresh 1% Ophth Drops] Ketotifen Fumarate [Eye Itch 2 drops RIGHTEYE TID 03/22/23 04/02/23 Relief] diphenhydrAMINE [Benadryl] 25 mg PO Q6H PRN 03/22/23 04/02/23 traMADol [Ultram] 25 mg PO DAILY PRN 03/22/23 04/02/23 guaiFENesin [Giltuss Ex] 200 mg PO Q4H PRN 04/02/23 04/02/23 Apixaban [Eliquis] 5 mg PO BID #60 tablet 04/03/23 Pantoprazole [Protonix] 40 mg PO BID #60 tab 04/10/23 Sucralfate [Carafate] 1 gm PO 0700,1100,1600,2200 #12 ea 04/10/23 - Allergies Allergies/Adverse Reactions: Allergies Allergy/AdvReac Type Severity Reaction Status Date / Time aspirin Allergy Unknown Verified 09/09/23 16:20 cortisone Allergy Hives Verified 09/09/23 16:20 gabapentin [From Neurontin] Allergy Rash Verified 09/09/23 16:20 lisinopril Allergy Unknown Verified 09/09/23 16:20 - Social History Does the pt smoke?: No Smoking Status: Never smoker Does the pt drink ETOH?: No Does the pt have substance abuse?: No - Immunizations Immunizations are current?: Yes - POLST Patient has POLST: No Results - Vitals Vitals: Vital Signs - 24 hr 09/09/23 09/09/23 09/09/23 16:04 16:51 16:54 Temperature 36.3 C L Heart Rate 51 L 46 L 46 L Respiratory 15 16 17 Rate Blood Pressure 106/54 L 123/62 O2 Saturation 95 97 09/09/23 09/09/23 09/09/23 17:08 17:13 17:28 Temperature Heart Rate 51 L 46 L 42 L Respiratory 14 14 14 Rate Blood Pressure 134/59 H O2 Saturation 96 97 98 09/09/23 09/09/23 09/09/23 17:29 17:47 18:15 Temperature Heart Rate 42 L 45 L 41 L Respiratory 14 15 15 Rate Blood Pressure 104/62 O2 Saturation 98 97 98 09/09/23 09/09/23 18:30 18:44 Temperature Heart Rate 42 L 58 L Respiratory 16 14 Rate Blood Pressure 117/61 O2 Saturation 98 97 Oxygen O2 Source Room air - EKG (time done) 1637 EKG releavant findings:: EKG personally interpreted by author of this note. Relevant findings are: Rate: Rate (enter#), Joseph, Tachy, Other Rhythm: Sinus bradycardia [place]: Normal Intervals: Normal VT QRS: Normal Ischemia: Normal ST segments Other comments: Other comments (Prolonged Qtc) Compare to prior EKG: Old EKG unavailable Computer interpretation: Agree with computer - Labs Labs: Laboratory Tests 09/09/23 09/09/23 16:55 16:55 WBC 10.6 RBC 4.79 Hgb 12.3 Hct 40.9 MCV 85.4 MCH 25.7 L MCHC 30.1 L RDW 15.7 H Plt Count 187 MPV 11.6 H Neut # (Auto) 8.6 H Lymph # (Auto) 1.3 L [place] # (Auto) 0.5 Eos # (Auto) 0.1 Baso # (Auto) 0.0 Absolute Nucleated RBC 0.00 Nucleated RBC % 0.0 Sodium 136 Potassium 4.3 Chloride 104 Carbon Dioxide 28 Anion Gap 4.0 L BUN 28 H Creatinine 1.5 H Estimated GFR (MDRD) 34 L Glucose 158 H Calcium 9.3 Magnesium 1.9 Total Bilirubin 0.4 AST 12 ALT 6 L Alkaline Phosphatase 63 Troponin I High Sens 8.1 Total Protein 6.2 L Albumin 3.6 Globulin 2.6 Albumin/Globulin Ratio 1.4 - Rads (name of study) Chest X-ray Relevant Findings:: EMP independent interpretation of test (No acute cardiopulmonary process) PD Medical Decision Making - ED course Complexity details: reviewed old records, reviewed results, re-evaluated patient ED course: Patient is a 72-year-old female presenting to the emergency department after feeling dizzy after eating 3 gummy edibles. Patient has never done this before she wanted to take it to relax at home she currently lives in assisted living and causes her a lot of stress. Patient notes shortly after she felt very dizzy and nauseous no vomiting. She denies any fevers chills syncope she reports feeling lightheaded but no chest pain or shortness of breath. Vitals here in the emergency department are reassuring patient on arrival was heart rate 50 bpm afebrile normotensive normal respiratory rate saturating at 98% no focal neurodeficits patient able to follow commands ANO x 3 in no acute distress she is sitting up and drinking juice. Labs obtained here in the emergency department as well patient was waiting here in the emergency department she bradycardia down to 33 here in the emergency department and became hypotensive in the 70s normal saline was started and patient blood pressure slightly increased she is awake and alert during this. She is drinking apple juice and blood sugar was stable. Labs were obtained and EKG showed sinus bradycardia. Patient's bradycardia slightly resolved after few minutes pacer pads were applied to the wall patient was monitored here in the emergency department. Heart rate improved to the 60s here in the emergency department after few minutes of being monitored and fluids given patient's blood pressure improved to SBP in the 100s after receiving 1 L. Patient able to eat and drink here in the emergency department. Patient after eating and drinking blood pressure improved to the 120s and heart rate improved to the 70s. Patient resting in the emergency department in no acute distress. Labs showed no elevation in troponin no electrolyte abnormalities CBC is unremarkable. Patient ambulated here in the emergency department she appears fatigued but in no acute distress. Patient feels safe to go back to her facility and rest. Patient denies any nausea vomiting fevers ANO x 3 on discharge. Instructed patient to return with any persistent fatigue or new or worsening symptoms. Patient understands and is agreeable with this plan. Departure - Departure Disposition: 01 Home, Self Care Clinical Impression: Overdose of marijuana, Vasovagal episode, Bradycardia Condition: Good Comments: Your work up here in the ED showed Your heart rate went into a rhythm called bradycardia which means it was a low heart rate after you overdosed on cannabis. We have monitored you here your symptoms have improved you have eaten and received IV fluids here in the emergency department. Your labs appear stable otherwise and you are feeling significantly better I feel safe sending you home. Forms: PCP List
[2023-09-09 17:25] LABS: TROPONIN I HIGH SENSITIVITY 8.1 ng/L (2.3-14.8)
[2023-09-09 18:41] VITALS: BP 117/61
[2023-09-09 18:55] VITALS: O2SAT 97
== END 2023-09-09 23:27 | disposition home or self-care (01) ==
LOC: EDUNIT# → ED 15:56
DX: T40.711A Poisoning by cannabis, accidental (unintentional), initial encounter (principal); R55 Syncope and collapse; R00.1 Bradycardia, unspecified
CPT/HCPCS: 36415; 80053; 83735; 84484; 85025; 93005; 96360; 96361; 99284

== ENCOUNTER 2023-09-09 23:26 | Outpatient (CLI) | payer MEDICARE, OTHER | END 2023-09-09 23:27 | disposition home or self-care (01) | LOC: EMS 23:26 | PROVIDERS: ATTEND Physician Assistant | DX: R41.0 Disorientation, unspecified (principal); I95.9 Hypotension, unspecified | CPT/HCPCS: A0425; A0428 ==

== ENCOUNTER 2023-09-15 06:15 | Outpatient (CLI) | payer MEDICARE, OTHER | END 2023-09-15 23:59 | disposition short-term general hospital (02) | LOC: EMS 06:15 | DX: M25.552 Pain in left hip (principal); W01.0XXA Fall on same level from slipping, tripping and stumbling without subsequent striking against object, initial encounter; Y92.092 Bedroom in other non-institutional residence as the place of occurrence of the external cause | CPT/HCPCS: A0425; A0429 ==

== ENCOUNTER 2024-01-21 13:21 | Inpatient (IN) ==
--- NOTE | 2024-01-21 13:29 | ED Physician Documentation ---
History of Present Illness Stated complaint Stated Complaint: L NUMBNESS/TINGLING Chief complaint Chief Complaint: General Additonal information Additional information: 73-year-old female with history of dementia, hypertension, upper GI bleed, stroke, duodenal ulcer, CHF, renal insufficiency, diverticulitis, on apixaban presents with left-sided sensory changes. History clarified from triage notes. Since about 4:30 PM yesterday, patient has had left-sided decrease in sensation and strength in her left arm and leg. However, this is not new for patient. She had a similar episode in the past that lasted a few weeks and is being worked up outpatient for chronic neck abnormalities. No trauma. No fevers or chills, visual or hearing changes, chest or back or abdominal or flank pain, though patient does note mild left-sided neck pain. She is on anticoagulation as noted. No other new concerns. Per chart review, she was seen late December with falls in the setting of having a left-sided stroke in the past, usually using a walker though mostly wheelch air-bound. Review of Systems ROS Constitutional: no fever, no chills Eyes: no visual disturbance, no discharge Ears, Nose, Mouth, Throat: no rhinorrhea, no sore throat Cardiovascular: no chest pain, no palpitations Respiratory: no cough, no shortness of breath Gastrointestinal: no abdominal pain, no vomiting, no diarrhea Genitourinary: no dysuria, no hematuria Musculoskeletal: no back pain, no neck stiffness Skin: no rash, no wound Neurological: +focal weakness, focal numbness Meds/Allgy Home Medications Ambulatory Orders Medication Instructions Recorded Confirmed acetaminophen 325 mg capsule 325 mg PO Q6H PRN fever or pain 11/27/23 01/21/24 (Tylenol) albuterol sulfate 90 mcg/actuation 1 inh inhalation Q4-6H 11/27/23 01/21/24 aerosol inhaler (Ventolin HFA) apixaban 5 mg tablet (Eliquis) 5 mg PO BID #90 tabs 11/27/23 01/21/24 atorvastatin 40 mg tablet (Lipitor) 40 mg PO QDAY 11/27/23 01/21/24 azelastine 0.05 % eye drops 1 drp ophthalmic (eye) BID 11/27/23 01/21/24 carboxymethylcellulose sodium 1 % 2 drp ophthalmic (eye) BID 11/27/23 01/21/24 eye liquid gel drops (Refresh Liquigel) donepezil 10 mg tablet 10 mg PO QDAY 11/27/23 01/21/24 furosemide 20 mg tablet 20 mg PO QDAY 11/27/23 01/21/24 isosorbide mononitrate 60 mg 60 mg PO QDAY 11/27/23 01/21/24 tablet,extended release 24 hr loperamide 2 mg capsule 2 mg PO Q8H PRN loose stool 11/27/23 01/21/24 (Anti-Diarrheal (loperamide)) lorazepam 0.5 mg tablet 0.5 mg PO QDAY PRN anxiety 11/27/23 01/21/24 melatonin 3 mg capsule 3 mg PO HS PRN sleep 11/27/23 01/21/24 ondansetron 4 mg disintegrating 4 mg PO Q6H 11/27/23 01/21/24 tablet oxycodone 5 mg capsule 5 mg PO QID PRN pain 11/27/23 01/21/24 pantoprazole 20 mg tablet,delayed 20 mg PO QDAY 11/27/23 01/21/24 release psyllium husk 3.4 gram/5.4 gram 1 tbsp PO QDAY 11/27/23 01/21/24 oral powder (Metamucil) sennosides 8.6 mg capsule (senna) 8.6 mg PO BID 11/27/23 01/21/24 sertraline 25 mg tablet 25 mg PO QDAY 11/27/23 01/21/24 tramadol 25 mg tablet 25 mg PO Q6H PRN pain 11/27/23 01/21/24 duloxetine 30 mg capsule,delayed 30 mg PO QDAY #90 caps 12/31/23 01/21/24 release mecobalamin (vitamin B12) 1,000 1,000 mcg PO QDAY #90 tabs 01/15/24 01/21/24 mcg chewable tablet Allergies Allergies Allergy/AdvReac Type Severity Reaction Status Date / Time aspirin Allergy Unknown Verified 01/21/24 13:40 cortisone Allergy Hives Verified 01/21/24 13:40 gabapentin (From Neurontin) Allergy Rash Verified 01/21/24 13:40 lisinopril Allergy Unknown Verified 01/21/24 13:40 [facility] Medical History Medical History Hypercoagulable state Upper GI bleeding History of stroke with residual deficit Duodenal ulcer Chronic congestive heart failure Chronic renal insufficiency Anticoagulant long-term use Acute diverticulitis Cerebrovascular accident (CVA) Dementia Anxiety with depression Chronic diarrhea Dry eyes Dyshidrotic eczema Hypercoagulable state Social History Social History (Updated 01/21/24 @ 13:39 by Steffany Manrique RN) Smoking Status: Never smoker If you are a former smoker, when did you quit? (Date/Year): 2016 Number of Years Smoked: 30 How many cigarettes a day do you smoke? (20 cigarettes=1 Pk): 3 Do you dip or chew tobacco?: No Do you vape?: No Patient requests smoking cessation consult: No Initiate information on smoking cessation: No Living arrangement: Assisted living Living Condition: With friend(s) Relationship: Level: Assisted Home Mobility Equipment: Walker Do you feel safe in your home environment?: Yes Suffered physical, verbal, emotional, or financial abuse?: No History of Abuse: No ETOH Use: None POLST Patient has POLST: No Exam Exam Const: no acute distress, non toxic appearing; calm, conversant, pleasant; mildly confused at baseline Eyes: PERRLA, EOMI ENT: mucous membranes moist Neck: supple, non-tender Resp: no respiratory distress, clear to auscultation bilaterally Card: regular bradycardia to 50s, no murmurs Abd: non tender diffusely, no rigidity or rebound or guarding Back: no T or L spine tenderness, no CVA tenderness bilaterally Extrem: no deformities, no swelling bilateral lower extremities, 2+ distal pulses all extremities Neuro: ANOx4. 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 No rotatory or vertical nystagmus. Normal tone all extremities. Sensation intact to light touch RUE and RLE but mildly decreased LUE and LLE. No ankle clonus bilaterally. 5/5 motor strength RUE and RLE but 4/5 strength LUE and LLE. Normal coordination. No pronator drift. No dysarthria. No neglect. Grossly normal cognition. Skin: no rash, warm and dry Results Vitals Vitals: Vital Signs - 24 hr 01/21/24 13:34 01/21/24 15:40 01/21/24 17:40 Temperature 36.4 C L Temperature Source Temporal Artery Scan Pulse Rate 52 L 97 H 77 Respiratory Rate 20 18 18 Blood Pressure 151/72 H 149/75 H 165/105 H O2 Saturation 97 95 95 O2 Source Room air Room air Room air Pain Intensity 4 01/21/24 18:54 Temperature Temperature Source Pulse Rate 55 L Respiratory Rate 17 Blood Pressure 159/77 H O2 Saturation 96 O2 Source Room air Pain Intensity Oxygen O2 Source Room air Labs Labs: Laboratory Tests 01/21/24 01/21/24 01/21/24 14:40 15:05 17:19 WBC 6.2 RBC 5.05 Hgb 13.5 Hct 43.6 MCV 86.3 MCH 26.7 L MCHC 31.0 L RDW 14.3 Plt Count 199 MPV 11.2 H Neut # (Auto) 4.2 Lymph # (Auto) 1.3 L [place] # (Auto) 0.5 Eos # (Auto) 0.2 Baso # (Auto) 0.0 Absolute Nucleated RBC 0.00 Nucleated RBC % 0.0 PT 16.0 H INR 1.5 H APTT 31.4 Sodium 135 Potassium 4.2 Chloride 103 Carbon Dioxide 26 Anion Gap 6.0 BUN 18 Creatinine 1.4 H Estimated GFR (MDRD) 37 L Glucose 97 Calcium 9.2 Total Bilirubin 0.4 AST 13 ALT 8 L Alkaline Phosphatase 83 Troponin I High Sens 15.3 H* 13.6 Total Protein 6.8 Albumin 3.6 Globulin 3.2 Albumin/Globulin Ratio 1.1 Urine Color YELLOW Urine Clarity HAZY Urine pH 6.0 Ur Specific [place] 1.020 Urine Protein TRACE Urine Glucose (UA) NEGATIVE Urine Ketones NEGATIVE Urine Occult Blood NEGATIVE Urine Nitrite NEGATIVE Urine Bilirubin NEGATIVE Urine Urobilinogen 0.2 (NORMAL) Ur Leukocyte Esterase SMALL H Urine RBC 0-5 Urine WBC 6-10 H Ur Squamous Epith Cells FEW Squamous Urine Crystals 0-2 Calcium Oxalate Urine Bacteria Few Urine Culture Comments INDICATED PD Medical Decision Making ED course ED course: This patient presents with left-sided deficits starting yesterday, for which I have considered a broad differential including but not limited to recrudescence, stroke, peripheral neuropathy, vertebral or carotid artery dissection, intravascular volume depletion, electrolyte derangements, seizures, brain mass, among others. Note patient arrives well outside thrombolytic window, and I thi nk thrombectomy candidacy is unlikely in the setting of report of her having similar sympotms in the past that lasted days to weeks, with reported ongoing outpatient workup. Nonetheless, I am obtaining CT head, CT head and neck, along with EKG, chest x-ray, CBC, CMP, coags, troponin, urinalysis. I am giving 500mL normal saline and will closely reassess. EKG sinus bradycardia without acute ischemia or immediately concerning interval prolongation. Morphology similar to September 09, 2023 EKG. Labs: CBC with no leukocytosis, anemia, or thrombocytopenia. INR elevated to 1.5. PTT within normal limits. CMP with stable appearing creatinine, overall grossly reassuring. Troponin borderline elevated in the setting of no chest pain or clear acute EKG changes. We will trend this. Urine with a few bacteria, 6-10 white blood cells, however in the setting of no urinary symptoms. Urine culture still being sent, however this appears to be asymptomatic bacteruria currently. I agree with radiology reads of imaging on my independent review of imaging. Note delay in imaging due to difficult PIV access. CXR: "FINDINGS: Surgical changes and devices: None. Lungs and pleura: No pleural effusions or pneumothorax. Mild pulmonary edema.. Mediastinum: Mediastinal contours appear normal. Cardiomegaly.. Bones and chest wall: No suspicious bony lesions. Overlying soft tissues appea r unremarkable. IMPRESSION: Mild congestive heart failure exacerbation. Reviewed by: Be Winter MD on 01/21/2024 2:52 PM PST" Note no SOB, cough, hypoxia or chest pain here. CTA head/neck: "FINDINGS: Cerebral CT Angiogram: Internal carotid arteries: No acute findings. Intracranial ICA are patent with no significant stenosis. No occlusion. No aneurysm. Anterior cerebral arteries: Right A2 VERONICA occlusion at site of stenosis on the prior CT. Multifocal left A2 VERONICA stenosis Middle cerebral arteries: Multifocal and 2 MCA stenosis on the left, and M3 MCA on the right. Posterior cerebral arteries: Perimesencephalic bilateral PANMAN segments are quite diminished. There is flow present in the distal branches however. Basilar artery: Unremarkable. No significant stenosis. No occlusion. No aneurysm. Vertebral arteries: There is diminished flow in the the right V3 and V4 vertebral artery segments, new from prior exam. Left vertebral artery widely patent. Dural venous sinuses: Unremarkable given phase of enhancement. Other: Arterial phase appearance of the brain parenchyma is unremarkable. Prior sinus surgery noted. There is complete] ethmoid and anterior left ethmoid sinus opacification with debris filling both frontal sinuses. Mucosal thickening in the sphenoid sinus Neck CT Angiogram: Internal carotid arteries: Minimal atherosclerotic plaque in both proximal ICA without stenosis Common carotid arteries: Unremarkable. No significant stenosis. No dissection or occlusion. External carotid arteries: Unremarkable. No occlusion. Vertebral arteries: Unremarkable. No significant stenosis. No dissection or occlusion. Aortic Arch and Mediastinum: Partially visualized aortic arch unremarkable without evidence of aneurysm. Origins of the great vessels unremarkable. Other: Arterial phase soft tissues of the neck are unremarkable. 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 Left vert ebral artery widely patent. Multifocal stenosis involving both MCA and bilateral perimesencephalic PANMAN. [place] mucosal paranasal sinus disease. Reviewed by: Rasta Sanders MD on 01/21/2024 3:33 PM AKST Approved by: Rasta Sanders MD on 01/21/2024 3:33 PM AKST Station ID: [id number] Report Electronically Signed by Rasta Sanders MD 01/21/24 1620 01/21/24 1633" hCT: "FINDINGS: CSF spaces: Ventricles are appropriate in size and position. No hydrocephalus. Basal cisterns unremarkable. Brain: Multifocal old infarcts noted involving the right VERONICA and bilateral occipital lobes, similar prior exam. No intracranial hemorrhage or mass effect. Underlying atrophy and white matter chronic ischemic change Skull and face: Calvarium and skull base are unremarkable without suspicious lesion. Sinuses: Visualized sinuses and mastoids are clear. IMPRESSION: Stable atrophy, chronic ischemic change and multifocal old infarcts with gliosis is also stable from the prior. No intracranial hemorrhage or mass effect Reviewed by: Rasta Sanders MD on 01/21/2024 3:38 PM AKST" I am immediately requesting Stroke Neurology consult on my review of imaging read, at 1650. Note patient has aspirin allergy. I called Tejinder at , patient's family, to update him. We reviewed current updates; he is aware of and agrees with plan. Neurology consult: I spoke with Dr. Harper of [facility] at [phone], reviewing case. We reviewed presentation, CTA imaging, as well as hCT (the last of which does not show acute changes, which we would expect at this point if acute stroke present). NIHSS is currently 4. Note patient is consistent in stating she last felt normal yesterday afternoon, with symptoms starting at [address] Simpson will assess with teleneuro. Repeat troponin: downtrended, reassuring, still with no chest pain. Repeat EKG sinus bradycardia without acute ischemia or immediately concerning interval prolongation. Neurology: I spoke with Dr. Harper again at 1838, reviewing updates. He does note likely subacute stroke on HCT. She is not appropriate for thrombectomy (or thrombolytics as discussed). He does not recommend adding antiplatelet agents, rather admitting for brain MRI and further assessmenet. I am requesting hospitalist consult to admit, and also ordering TTE, lipids, Hgb A1c, and brain MRI. Statin ordered. Hospitalist consult requested. Signing out to bit grinder at 1900 with plan to complete admission. Discharge Plan Discharge Patient Disposition: 66 [facility] DC/Xfer Condition: Stable Clinical Impression: Focal neurological deficit Prescriptions: No Action carboxymethylcellulose sodium [Refresh Liquigel] 1 % drops, liquid gel 2 drp ophthalmic (eye) BID azelastine 0.05 % drops 1 drp ophthalmic (eye) BID pantoprazole 20 mg tablet,delayed release (DR/EC) 20 mg PO QDAY loperamide [Anti-Diarrheal (loperamide)] 2 mg capsule 2 mg PO Q8H PRN (Reason: loose stool) donepezil 10 mg tablet 10 mg PO QDAY furosemide 20 mg tablet 20 mg PO QDAY atorvastatin [Lipitor] 40 mg tablet 40 mg PO QDAY acetaminophen [Tylenol] 325 mg capsule 325 mg PO Q6H PRN (Reason: fever or pain) sertraline 25 mg tablet 25 mg PO QDAY lorazepam 0.5 mg tablet 0.5 mg PO QDAY PRN (Reason: anxiety) Metamucil 3.4 gram/5.4 gram powder 1 tbsp PO QDAY Rx Instructions: mix into at least 8 oz of water or juice before administering isosorbide mononitrate 60 mg tablet extended release 24 hr 60 mg PO QDAY albuterol sulfate [Ventolin HFA] 90 mcg/actuation HFA aerosol inhaler 1 inh inhalation Q4-6H tramadol 25 mg tablet 25 mg PO Q6H PRN (Reason: pain) senna 8.6 mg capsule 8.6 mg PO BID oxycodone 5 mg capsule 5 mg PO QID PRN (Reason: pain) ondansetron 4 mg tablet,disintegrating 4 mg PO Q6H melatonin 3 mg capsule 3 mg PO HS PRN (Reason: sleep) Eliquis 5 mg tablet 5 mg PO BID Qty: 90 1RF mecobalamin (vitamin B12) 1,000 mcg tablet,chewable 1,000 mcg PO QDAY Qty: 90 3RF duloxetine 30 mg capsule,delayed release(DR/EC) 30 mg PO QDAY Qty: 90 2RF Print Language: Romansh
[2024-01-21] MEDS: SODIUM CHLORIDE 0.9% 500 ML IV STA (14:18)
[2024-01-21 14:46] LABS: BASOPHILS % (AUTO) 0.5 %; EOSINOPHILS # (AUTO) 0.2 10^3/uL (0.0-0.7); EOSINOPHILS % (AUTO) 3.2 %; HCT - HEMATOCRIT 43.6 % (37.0-47.0); HGB - HEMOGLOBIN 13.5 g/dL (12.0-16.0); LYMPHOCYTES # (AUTO) 1.3 10^3/uL (1.5-3.5); LYMPHOCYTES % (AUTO) 20.3 %; MEAN CORPUSCULAR HEMOGLOBIN 26.7 pg (27.0-31.0); MEAN CORPUSCULAR VOLUME 86.3 fL (81.0-99.0); MEAN PLATELET VOLUME 11.2 fL (7.9-10.8); MONOCYTES # (AUTO) 0.5 10^3/uL (0.0-1.0); MONOCYTES % (AUTO) 8.2 %; NEUTROPHILS # (AUTO) 4.2 10^3/uL (1.5-6.6); NEUTROPHILS % (AUTO) 67.6 %; PLT - PLATELET COUNT 199 10^3/uL (130-450); RED BLOOD COUNT 5.05 10^6/uL (4.20-5.40); RED CELL DISTRIBUTION WIDTH 14.3 % (12.0-15.0); WHITE BLOOD COUNT 6.2 x10^3/uL (4.8-10.8)
--- NOTE | 2024-01-21 14:53 | XRAY Report ---
PROCEDURE: XR Chest 1V INDICATIONS: L sided numbness, weakness since yesterday TECHNIQUE: One view of the chest was acquired. COMPARISON: None. FINDINGS: Surgical changes and devices: None. Lungs and pleura: No pleural effusions or pneumothorax. Mild pulmonary edema.. Mediastinum: Mediastinal contours appear normal. Cardiomegaly.. Bones and chest wall: No suspicious bony lesions. Overlying soft tissues appear unremarkable. IMPRESSION: Mild congestive heart failure exacerbation. Reviewed by: Be Winter MD on 01/21/2024 2:52 PM PST Approved by: Be Winter MD on 01/21/2024 2:52 PM PST Station ID: [id number]
[2024-01-21 14:54] LABS: PARTIAL THROMBOPLASTIN TIME 31.4 secs (24.9-33.3)
[2024-01-21 14:58] LABS: INR 1.5 (0.8-1.2)
[2024-01-21 15:06] LABS: ALBUMIN 3.6 g/dL (3.2-5.5); ALBUMIN/GLOBULIN RATIO 1.1 (1.0-2.2); BILIRUBIN,TOTAL 0.4 mg/dL (0.2-1.0); CALCIUM 9.2 mg/dL (8.5-10.3); CREATININE 1.4 mg/dL (0.6-1.3); POTASSIUM 4.2 mmol/L (3.5-4.5); TOTAL PROTEIN 6.8 g/dL (6.4-8.9)
[2024-01-21 15:16] LABS: TROPONIN I HIGH SENSITIVITY 15.3 ng/L (2.3-14.8)
[2024-01-21] MEDS ORDERED: iohexoL-300 100 ML VIAL ONE (15:20)
[2024-01-21 15:23] LABS: BILIRUBIN,URINE NEGATIVE (NEGATIVE); GLUCOSE, URINE (UA) NEGATIVE (NEGATIVE); KETONES,URINE (UA) NEGATIVE (NEGATIVE); LEUKOCYTE ESTERASE, URINE SMALL (NEGATIVE); NITRITE,URINE NEGATIVE (NEGATIVE); OCCULT BLOOD,URINE NEGATIVE (NEGATIVE); PROTEIN,URINE TRACE mg/dL (NEGATIVE); UROBILINOGEN,URINE 0.2 (NORMAL) E.U./dL (NORMAL)
[2024-01-21 15:25] LABS: CLARITY,URINE HAZY (CLEAR)
[2024-01-21 15:36] LABS: BACTERIA,URINE Few /HPF (None Seen); CRYSTALS,URINE 0-2 Calcium Oxalate /LPF; RBC,URINE 0-5 /HPF (0-5); SQUAMOUS EPITHELIAL CELL,UR FEW Squamous (<= Few)
--- NOTE | 2024-01-21 16:34 | CT Report ---
PROCEDURE: CT Angio Head/Neck INDICATIONS: L sided numbness, weakness since yesterday TECHNIQUE: Helical axial CT of the head and neck was obtained during the arterial phase of a intrave nous contrast injection utilizing an angiographic protocol. Multiplanar traditional and MIP reformat s were also obtained. Dose reduction techniques included either automated exposure control or adjustm ent of exposure parameters. COMPARISON: 03/15/2022 FINDINGS: Cerebral CT Angiogram: Internal carotid arteries: No acute findings. Intracranial ICA are patent with no significant steno sis. No occlusion. No aneurysm. Anterior cerebral arteries: Right A2 VERONICA occlusion at site of stenosis on the prior CT. Multifocal le ft A2 VERONICA stenosis Middle cerebral arteries: Multifocal and 2 MCA stenosis on the left, and M3 MCA on the right. 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 There is flow present in the distal branches however. Basilar artery: Unremarkable. No significant stenosis. No occlusion. No aneurysm. Vertebral arteries: There is diminished flow in the the right V3 and V4 vertebral artery segments, ne w from prior exam. Left vertebral artery widely patent. Dural venous sinuses: Unremarkable given phase of enhancement. Other: Arterial phase appearance of the brain parenchyma is unremarkable. Prior sinus surgery noted. There is complete] ethmoid and anterior left ethmoid sinus opacification with debris filling both fro ntal sinuses. Mucosal thickening in the sphenoid sinus Neck CT Angiogram: Internal carotid arteries: Minimal atherosclerotic plaque in both proximal ICA without stenosis Common carotid arteries: Unremarkable. No significant stenosis. No dissection or occlusion. External carotid arteries: Unremarkable. No occlusion. Vertebral arteries: Unremarkable. No significant stenosis. No dissection or occlusion. Aortic Arch and Mediastinum: Partially visualized aortic arch unremarkable without evidence of aneury sm. Origins of the great vessels unremarkable. Other: Arterial phase soft tissues of the neck are unremarkable. 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 Left vertebral artery widely pat ent. 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 [place] mucosal paranasal sinus disease. Reviewed by: Rasta Sanders MD on 01/21/2024 3:33 PM AKST Approved by: Rasta Sanders MD on 01/21/2024 3:33 PM AKST Station ID: [id number]
--- NOTE | 2024-01-21 16:39 | CT Report ---
PROCEDURE: CT Head WO INDICATIONS: L sided numbness, weakness since yesterday TECHNIQUE: Helical axial CT of the brain was obtained without contrast and reformatted in multiple p lanes. Radiation dose reduction was achieved using automated exposure control or adjustment of mA and /or kV according to patient size. COMPARISON: 01/02/2024 FINDINGS: CSF spaces: Ventricles are appropriate in size and position. No hydrocephalus. Basal cisterns unre markable. Brain: Multifocal old infarcts noted involving the right VERONICA and bilateral occipital lobes, similar prior exam. No intracranial hemorrhage or mass effect. Underlying atrophy and white matter chronic is chemic change Skull and face: Calvarium and skull base are unremarkable without suspicious lesion. Sinuses: Visualized sinuses and mastoids are clear. IMPRESSION: Stable atrophy, chronic ischemic change and multifocal old infarcts with gliosis is also stable from the prior. No intracranial hemorrhage or mass effect Reviewed by: Rasta Sanders MD on 01/21/2024 3:38 PM AKST Approved by: Rasta Sanders MD on 01/21/2024 3:38 PM AKST Station ID: [id number]
[2024-01-21 19:37] LABS: CHOL/HDL RATIO 2.4 (<4.4); CHOLESTEROL 133 mg/dL; HDL CHOLESTEROL 55 mg/dL; LDL CHOLESTEROL,CALCULATED 51 mg/dL; LDL/HDL RATIO 0.9 (<4.4); TRIGLYCERIDES 136 mg/dL; VLDL CHOLESTEROL 27 mg/dL
[2024-01-21] MEDS ORDERED: hydrALAZINE INJ 20 MG/ML VIAL IVP PRN (19:50)
[2024-01-21] MEDS: ATORVASTATIN 40 MG TABLET PO STA (19:52)
--- NOTE | 2024-01-21 20:01 | HISTORY & PHYSICAL EXAMINATION ---
Chief Complaint Chief Complaint Chief Complaint: weakness History of Present Illness Admitted From Admitted From:: home History Obtained From Records Reviewed: yes History obtained from: patient, ED physician Exam Limitations: patient dementia, telemedicine evalaution History of Present Illness HPI Comment/Other: Mrs. Mooney is a pleasant 73yoF with a history of hypertension, hypelipidemia, DVT,PE on Eliquis, history of stroke with residual L sided weakness presented to the ED with increased fall and left sided numbness of a one day duration. In the ED she had a NIHSS of 4. CT head was negative for acute findings. CTA did show stenosis within the branches of the VERONICA and vertebral arteries. Due to timeframe of onset and patient being on anticoagulation, teleneurolgy did not feel she was a tPA or thrombectomy candidate. Due to worsening focal neurologic deficits from her baseline, I agreed to admit the patient to the ED for further management and evaluation of suspected acute stroke. during my evaluation at bedside, patient was in no acute distress. She still endorsed the left-sided numbness. she stated the weakness was unchanged from her baseline. Plan for admission to complete monitoring and workup was discussed with her and she agreed to plan of care and admission. This evaluation was performed utilizing tele-health tools including phone and live-video. Review of Systems Status of ROS: 10 or more systems reviewed and unremarkable except as noted in history and below [facility] Medical History Medical History Hypercoagulable state Upper GI bleeding History of stroke with residual deficit Duodenal ulcer Chronic congestive heart failure Chronic renal insufficiency Anticoagulant long-term use Acute diverticulitis Cerebrovascular accident (CVA) Dementia Anxiety with depression Chronic diarrhea Dry eyes Dyshidrotic eczema Hypercoagulable state Social History Social History (Updated 01/21/24 @ 13:39 by Steffany Manrique RN) Smoking Status: Never smoker If you are a former smoker, when did you quit? (Date/Year): 2016 Number of Years Smoked: 30 How many cigarettes a day do you smoke? (20 cigarettes=1 Pk): 3 Do you dip or chew tobacco?: No Do you vape?: No Patient requests smoking cessation consult: No Initiate information on smoking cessation: No Living arrangement: Assisted living Living Condition: With friend(s) Relationship: Level: Assisted Home Mobility Equipment: Walker Do you feel safe in your home environment?: Yes Suffered physical, verbal, emotional, or financial abuse?: No History of Abuse: No ETOH Use: None POLST Patient has POLST: No Meds/Allgy Home Medications Ambulatory Orders Medication Instructions Recorded Confirmed acetaminophen 325 mg capsule 325 mg PO Q6H PRN fever or pain 11/27/23 01/21/24 (Tylenol) albuterol sulfate 90 mcg/actuation 1 inh inhalation Q4-6H 11/27/23 01/21/24 aerosol inhaler (Ventolin HFA) apixaban 5 mg tablet (Eliquis) 5 mg PO BID #90 tabs 11/27/23 01/21/24 atorvastatin 40 mg tablet (Lipitor) 40 mg PO QDAY 11/27/23 01/21/24 azelastine 0.05 % eye drops 1 drp ophthalmic (eye) BID 11/27/23 01/21/24 carboxymethylcellulose sodium 1 % 2 drp ophthalmic (eye) BID 11/27/23 01/21/24 eye liquid gel drops (Refresh Liquigel) donepezil 10 mg tablet 10 mg PO QDAY 11/27/23 01/21/24 furosemide 20 mg tablet 20 mg PO QDAY 11/27/23 01/21/24 isosorbide mononitrate 60 mg 60 mg PO QDAY 11/27/23 01/21/24 tablet,extended release 24 hr loperamide 2 mg capsule 2 mg PO Q8H PRN loose stool 11/27/23 01/21/24 (Anti-Diarrheal (loperamide)) lorazepam 0.5 mg tablet 0.5 mg PO QDAY PRN anxiety 11/27/23 01/21/24 melatonin 3 mg capsule 3 mg PO HS PRN sleep 11/27/23 01/21/24 ondansetron 4 mg disintegrating 4 mg PO Q6H 11/27/23 01/21/24 tablet oxycodone 5 mg capsule 5 mg PO QID PRN pain 11/27/23 01/21/24 pantoprazole 20 mg tablet,delayed 20 mg PO QDAY 11/27/23 01/21/24 release psyllium husk 3.4 gram/5.4 gram 1 tbsp PO QDAY 11/27/23 01/21/24 oral powder (Metamucil) sennosides 8.6 mg capsule (senna) 8.6 mg PO BID 11/27/23 01/21/24 sertraline 25 mg tablet 25 mg PO QDAY 11/27/23 01/21/24 tramadol 25 mg tablet 25 mg PO Q6H PRN pain 11/27/23 01/21/24 duloxetine 30 mg capsule,delayed 30 mg PO QDAY #90 caps 12/31/23 01/21/24 release mecobalamin (vitamin B12) 1,000 1,000 mcg PO QDAY #90 tabs 01/15/24 01/21/24 mcg chewable tablet Allergies Allergies Allergy/AdvReac Type Severity Reaction Status Date / Time aspirin Allergy Unknown Verified 01/21/24 13:40 cortisone Allergy Hives Verified 01/21/24 13:40 gabapentin (From Neurontin) Allergy Rash Verified 01/21/24 13:40 lisinopril Allergy Unknown Verified 01/21/24 13:40 Prior Level of Functionality: patient utilized a walker and wheelchair. Lives in an assisted living facility. Exam Exam Examination, as recorded, was obtained from patient and staff reported information, as well as through peripheral observation. Constitutional normal general appearance and no apparent distress Eyes PERRL and EOMs intact bilaterally Chest inspection of chest normal Respiratory normal respiratory effort and no use of accessory muscles Cardiovascular normal heart rate noted and regular rhythm noted Gastrointestinal abdomen normal to inspection Extremities normal to inspection, abnormal ROM noted and no deformity Neurology tangible personal property appraiser II-XII intact, focal motor deficit noted, sensory deficit noted, gait abnormality noted, speech normal and GCS 15 NIHSS 4 Psychiatry mental status grossly normal and oriented x3 Conclusion/Plan Problem List (1) Cerebrovascular accident (CVA): Plan: Worsening weakness and numbness from baseline, similar to previous stroke concerning for acute vs subacute stroke. I will evaluate as follows: - CT head without contrast reviewed, no acute findings.CTA with noted stenosis in the VERONICA and MCA - I will order an MRI to evaluate further for an acute ischemic stroke - As discussed d with ED physician and teleneurologist, patient not a tPA or thrombectomy candidate, I will optimize medical management with increasing Lipitor dose. -Upon my review of patient's chart, noted that she is allergic to aspirin. will not start antiplatelets at this time. I will continue prescribed anticoagulation with Eliquis 5mg BID. -I will monitor drug levels as appropriate and clinical response to adjust for optimal medical treatment and to avoid toxicity or adverse affects. -I have ordered ECHO with bubble study to evaluate ventricular function - I have consulted physical therapy and occupational therapy to assess patient's needs for optimal recovery. Qualifiers: CVA mechanism: thrombosis Laterality of affected vessel: right (2) Essential (primary) hypertension: Plan: patient hypertensive, per neurology allowing permissive hypertension: - home medications reviewed. will resume isosorbide mononitrate 60mg daily -I have initiated as needed IV labetolol per CVA protocol to treat BP greater than 220/120 -additional coverage provided by IV hydralazine. -If not well controlled will initiated continuos drip of Nicardipine for optimized management of hypertension. Lab Results 01/21/24 14:40 01/21/24 14:40 Core Measures Anticipated LOS I expect patient to be DC'd or transferred within 96 hours.: Yes DVT/VTE - Prophylaxis VTE/DVT Device ordered at admit?: Yes VTE/DVT Prophylaxis med ordered at admit?: Yes Stroke - Rehab Assessment Rehab services assessment to be ordered?: Yes AMI - Statin at Admit Aspirin Prescribed on Admit: No Not Ordered - Medical Reason: Hx of drug allergy Telemedicine Consult Details Provider Location & Consult Time Telemedicine consultation conducted via videoconferencing?: Yes
[2024-01-21] MEDS ORDERED: SODIUM CHLORIDE FLUSH 0.9% 10 ML SYRINGE IVP PRN (20:45)
[2024-01-21] MEDS ORDERED: LABETALOL 20 MG/4 ML SYRINGE IVP PRN (20:45)
[2024-01-21] MEDS ORDERED: ONDANSETRON 4 MG/2 ML VIAL IVP PRN (20:45)
[2024-01-21] MEDS ORDERED: ACETAMINOPHEN 325 MG TABLET PO PRN (20:45)
[2024-01-21] MEDS ORDERED: ONDANSETRON ODT 4 MG TABLET TL PRN (20:45)
[2024-01-21] MEDS ORDERED: MELATONIN 3 MG TABLET PO PRN (20:50)
[2024-01-21] MEDS ORDERED: oxyCODONE 5 MG TABLET PO PRN (20:52)
[2024-01-21] MEDS: DULoxetine 30 MG CAPSULE PO SCH (21:21)
[2024-01-21] MEDS: DONEPEZIL 5 MG TABLET PO SCH (21:22)
[2024-01-21] MEDS: ISOSORBIDE MONONITRATE ER 30 MG TABLET PO SCH (21:22)
[2024-01-21] MEDS: APIXABAN 5 MG TABLET PO SCH (21:22)
[2024-01-21 21:23] LABS: ESTIMATED AVERAGE GLUCOSE 111 mg/dL (70-100); HEMOGLOBIN A1c% 5.5 % (4.27-6.07)
[2024-01-21] MEDS: SERTRALINE 25 MG TABLET PO SCH (21:23)
[2024-01-21] MEDS: SENNA 8.6 MG TABLET PO SCH (21:23)
[2024-01-22] MEDS: SODIUM CHLORIDE FLUSH 0.9% 10 ML SYRINGE IVP SCH (00:16)
[2024-01-22] MEDS: AZELASTINE 0.05% OP SCH (01:13)
[2024-01-22 05:46] LABS: BASOPHILS % (AUTO) 0.5 %; EOSINOPHILS # (AUTO) 0.3 10^3/uL (0.0-0.7); EOSINOPHILS % (AUTO) 4.2 %; HCT - HEMATOCRIT 41.5 % (37.0-47.0); HGB - HEMOGLOBIN 12.9 g/dL (12.0-16.0); LYMPHOCYTES # (AUTO) 1.3 10^3/uL (1.5-3.5); LYMPHOCYTES % (AUTO) 20.7 %; MEAN CORPUSCULAR HEMOGLOBIN 26.9 pg (27.0-31.0); MEAN CORPUSCULAR HGB CONC 31.1 g/dL (32.0-36.0); MEAN CORPUSCULAR VOLUME 86.5 fL (81.0-99.0); MEAN PLATELET VOLUME 11.1 fL (7.9-10.8); MONOCYTES # (AUTO) 0.4 10^3/uL (0.0-1.0); MONOCYTES % (AUTO) 6.1 %; NEUTROPHILS # (AUTO) 4.4 10^3/uL (1.5-6.6); NEUTROPHILS % (AUTO) 68.3 %; PLT - PLATELET COUNT 188 10^3/uL (130-450); RED CELL DISTRIBUTION WIDTH 14.4 % (12.0-15.0); WHITE BLOOD COUNT 6.4 x10^3/uL (4.8-10.8)
[2024-01-22 05:56] LABS: PARTIAL THROMBOPLASTIN TIME 31.1 secs (24.9-33.3)
[2024-01-22 05:59] LABS: ALBUMIN 3.5 g/dL (3.2-5.5); ALBUMIN/GLOBULIN RATIO 1.3 (1.0-2.2); BILIRUBIN,TOTAL 0.4 mg/dL (0.2-1.0); CALCIUM 9.1 mg/dL (8.5-10.3); CREATININE 1.2 mg/dL (0.6-1.3); POTASSIUM 3.9 mmol/L (3.5-4.5); TOTAL PROTEIN 6.3 g/dL (6.4-8.9)
[2024-01-22 06:00] LABS: INR 1.4 (0.8-1.2); PT - PROTHROMBIN TIME 15.1 secs (9.9-12.6)
[2024-01-22] MEDS: PANTOPRAZOLE 40 MG TABLET PO SCH (08:47)
[2024-01-22] MEDS: CARBOXYMETHYLCELLULOSE OPHTH DROPS EACHEYE SCH (08:50)
--- NOTE | 2024-01-22 10:58 | PHARMACY PROGRESS NOTE ---
Best Possible Medication History Admit Date and Time: 01/21/24 1950 Home Medications Medication Instructions Recorded Confirmed Type acetaminophen 325 mg capsule 325 mg PO Q6H PRN fever or pain 11/27/23 01/21/24 History (Tylenol) albuterol sulfate 90 mcg/actuation 1 inh inhalation Q4H PRN shortness 11/27/23 01/22/24 History aerosol inhaler (Ventolin HFA) of breath or wheezing apixaban 5 mg tablet (Eliquis) 5 mg PO BID #90 tabs 11/27/23 01/21/24 Rx atorvastatin 40 mg tablet (Lipitor) 40 mg PO QPM 11/27/23 01/22/24 History azelastine 0.05 % eye drops 1 drp ophthalmic (eye) BID 11/27/23 01/21/24 History carboxymethylcellulose sodium 1 % 1 drp ophthalmic (eye) .Q2-4H 11/27/23 01/22/24 History eye liquid gel drops (Refresh WHILE AWAKE Liquigel) donepezil 10 mg tablet 10 mg PO QDAY 11/27/23 01/21/24 History furosemide 20 mg tablet 20 mg PO QDAY 11/27/23 01/21/24 History isosorbide mononitrate 60 mg 60 mg PO QDAY 11/27/23 01/21/24 History tablet,extended release 24 hr loperamide 2 mg capsule 2 mg PO Q8H PRN loose stool 11/27/23 01/21/24 History (Anti-Diarrheal (loperamide)) lorazepam 0.5 mg tablet 0.5 mg PO QDAY PRN anxiety 11/27/23 01/21/24 History melatonin 3 mg capsule 3 mg PO HS PRN sleep 11/27/23 01/21/24 History ondansetron 4 mg disintegrating 4 mg PO Q6H PRN nausea and vomiting 11/27/23 01/22/24 History tablet oxycodone 5 mg capsule 5 mg PO QID PRN pain 11/27/23 01/21/24 History pantoprazole 20 mg tablet,delayed 20 mg PO QDAY 11/27/23 01/21/24 History release psyllium husk 3.4 gram/5.4 gram 1 tbsp PO QDAY 11/27/23 01/21/24 History oral powder (Metamucil) sennosides 8.6 mg capsule (senna) 17.2 mg PO DAILY PRN constipation 11/27/23 01/22/24 History sertraline 25 mg tablet 25 mg PO QDAY 11/27/23 01/21/24 History tramadol 25 mg tablet 25 mg PO Q6H PRN pain 11/27/23 01/21/24 History duloxetine 30 mg capsule,delayed 30 mg PO QDAY #90 caps 12/31/23 01/21/24 Rx release mecobalamin (vitamin B12) 1,000 1,000 mcg PO QDAY #90 tabs 01/15/24 01/21/24 Rx mcg chewable tablet diphenhydramine HCl 25 mg capsule 25 mg PO Q6H PRN itching 01/22/24 01/22/24 History (Allergy (diphenhydramine)) potassium chloride 10 mEq 10 meq PO DAILY 01/22/24 01/22/24 History tablet,extended release Processed by: Pharmacy Medications reviewed in ED?: No Medication History completed: Yes Patient Interview: Pt unable to participate Secondary Source(s): Facility MAR as ONLY source (MEDICATION LIST FROM [facility]) [facility] Statement: As the person ultimately responsible for medication therapy, providers are able to order a medication from an existing home medication list in [facility] via the "Reconcile Routine" prior to Confirmation of that medication by senior support analyst. Such practice is discouraged except when the physician, in their clinical judgment, deems that a medical need exists for a medication without regard to previous use.
[2024-01-22] MEDS: AZELASTINE 0.05% EACHEYE SCH (11:56)
--- NOTE | 2024-01-22 12:21 | MRI Report ---
PROCEDURE: MRI Brain WO INDICATIONS: stroke follow up TECHNIQUE: Noncontrast axial T1 spin echo, axial T2 fast spin echo, sagittal and axial FLAIR, coronal T2 fast sp in echo, axial gradient echo, axial diffusion and ADC through the brain. COMPARISON: Brain MRI dated 03/15/2022, head CT dated 01/21/2024, head CT dated 01/02/2024, head CT da gunner 03/27/2023. FINDINGS: Image quality: Excellent. CSF Spaces: Basal cisterns are patent. No extra-axial fluid collections. Ventricles are normal in size and shape. Brain: No intracranial masses or hemorrhage. Green/white matter interface is normal. Brainstem appe ars normal. Diffusion-weighted images demonstrate no acute ischemic insult. No chronic ischemic ins ults. There is age-related volume loss and progressive, severe periventricular white matter change co nsistent with small vessel ischemic change. Findings include development of a right anterior cerebral artery distribution chronic deep white matter infarct with resultant interval development of gliosis , which has occurred between the CTs of 03/27/2023 and 01/02/2024. Normal intravascular flow voids are present. Skull and face: Calvarium has normal marrow signal. Orbits appear normal. Sinuses: Sinuses and mastoids are clear. IMPRESSION: 1. No acute stroke identified. No acute intracranial process. 2. Progressive, severe small vessel ischemic change. 3. Findings include development of a right anterior cerebral artery distribution deep white matter in farct with resultant interval development of gliosis. This has occurred between the CT from 03/27/[address] from 01/02/2024. Reviewed by: Be Winter MD on 01/22/2024 12:20 PM PST Approved by: Be Winter MD on 01/22/2024 12:20 PM PST Station ID: [id number]
--- NOTE | 2024-01-22 13:31 | PROVIDER PROGRESS NOTE ---
Subjective Prog Note Date Prog Note Date: 01/22/24 Prog Note Time: 08:00 Subjective Pt reports feeling: No change Subjective: Patient tells me that she lives at [facility] (she actually lives at [facility]). She has a history of CVA with left sided weakness at baseline. Normally is wheelchair or walker dependent. Able to transfer independently. She has a history of falls. She is on Eliquis for history of DVT/PE with Protein C&S def as well as Leiden factor V mutation. States has been for 10 years, strongly affirms DNR status. POLST review confirms this. Her grandson Tejinder Sepulveda is her surrogate decision maker. Current Medications Current Medications Current Medications: Current Medications Generic Name Dose Route Start Last Admin Trade Name Freq PRN Reason Stop Dose Admin Acetaminophen 650 mg 01/21/24 20:45 Acetaminophen 325 Mg Tablet PO Q4HR PRN Pain 1 to 4, or Fever Apixaban 5 mg 01/21/24 21:00 01/22/24 08:46 Apixaban 5 Mg Tablet PO 5 mg BID VENTURA Administration Atorvastatin Calcium 80 mg 01/22/24 21:00 Atorvastatin 40 Mg Tablet PO QPM VENTURA Carboxymethylcellulose 2 drops 01/22/24 09:00 01/22/24 08:50 Carboxymethylcellulose Ophth Drops EACHEYE 2 drops BID VENTURA Administration Donepezil HCl 10 mg 01/21/24 20:45 01/22/24 08:48 Donepezil 5 Mg Tablet PO 10 mg DAILY VENTURA Administration Duloxetine HCl 30 mg 01/21/24 20:45 01/22/24 08:48 Duloxetine 30 Mg Capsule PO 30 mg DAILY VENTURA Administration Hydralazine HCl 5 mg 01/21/24 19:50 Hydralazine Inj 20 Mg/Ml Vial IVP Q4H PRN hyeprtension Isosorbide Mononitrate 60 mg 01/21/24 20:45 01/22/24 08:46 Isosorbide Mononitrate Er 30 Mg Tablet PO 60 mg DAILY VENTURA Administration Labetalol HCl 10 mg 01/21/24 20:45 Labetalol 20 Mg/4 Ml Syringe IVP Q10M PRN SBP >220 OR DBP>120 Protocol Melatonin 3 mg 01/21/24 20:50 Melatonin 3 Mg Tablet PO QPM PRN sleep Ondansetron HCl 4 mg 01/21/24 20:45 Ondansetron Odt 4 Mg Tablet TL Q6HR PRN Nausea / Vomiting Ondansetron HCl 4 mg 01/21/24 20:45 Ondansetron 4 Mg/2 Ml Vial IVP Q6HR PRN Nausea / Vomiting Oxycodone HCl 5 mg 01/21/24 20:52 Oxycodone 5 Mg Tablet PO QID PRN Moderate Pain (Level 4-6) Pantoprazole Sodium 20 mg 01/22/24 07:00 01/22/24 08:47 Pantoprazole 40 Mg Tablet PO 20 mg QDAC VENTURA Administration Patient Own Med ( 1 each 01/22/24 09:00 01/22/24 11:56 Azelastine 0.05 % EACHEYE Not Given Drops) BID VENTURA Senna 8.6 mg 01/21/24 21:00 01/22/24 08:49 Senna 8.6 Mg Tablet PO 8.6 mg BID VENTURA Administration Sertraline HCl 25 mg 01/21/24 20:45 01/22/24 08:47 Sertraline 25 Mg Tablet PO 25 mg DAILY VENTURA Administration Sodium Chloride 10 ml 01/21/24 20:45 Sodium Chloride Flush 0.9% 10 Ml Syringe IVP PRN PRN NEEDED PER PROVIDER ORDERS Sodium Chloride 10 ml 01/22/24 01:00 01/22/24 08:51 Sodium Chloride Flush 0.9% 10 Ml Syringe IVP 10 ml 0100,0900,1700 VENTURA Administration Objective Vital Signs/Intake & Output Reviewed Vital Signs: Yes Vital Signs: Vital Signs x48h Temp Pulse Resp BP Pulse Ox 01/22/24 09:00 36.7 C 60 20 145/73 H 96 01/22/24 05:45 36.5 C 65 20 154/77 H 95 Intake & Output: Intake & Output 01/19/24 01/20/24 01/21/24 01/22/24 23:59 23:59 23:59 23:59 Intake Total 500 / 500 320 / 320 Output Total 200 / 200 Balance 500 / 500 120 / 120 Weight (kg) 83.5 kg Objective General Appearance: positive No acute distress and Alert Eyes Bilateral: positive Normal inspection and PERRL ENT: positive ENT inspection nml Neck: positive Nml inspection Respiratory: positive Breath sounds nml Cardiovascular: positive Regular rate & rhythm Abdomen: positive No distention Skin: positive Color nml Extremities: positive Non-tender and No pedal edema Neurologic/Psychiatric: positive Disoriented to time (She says she is in the hospital in [facility], she does not know the day, month or year, but knows [place]udson is coming. ); negative Sensation nml (diffuse sensory deficit (mild) LLE and LUE. ) Lab Results 01/22/24 05:24 01/22/24 05:24 Other Labs: Lab Results x24hrs 01/22/24 01/21/24 01/21/24 Range/Units 05:24 17:19 15:05 WBC 6.4 (4.8-10.8) x10^3/uL RBC 4.80 (4.20-5.40) 10^6/uL Hgb 12.9 (12.0-16.0) g/dL Hct 41.5 (37.0-47.0) % MCV 86.5 (81.0-99.0) fL MCH 26.9 L (27.0-31.0) pg MCHC 31.1 L (32.0-36.0) g/dL RDW 14.4 (12.0-15.0) % Plt Count 188 (130-450) 10^3/uL MPV 11.1 H (7.9-10.8) fL Neut # (Auto) 4.4 (1.5-6.6) 10^3/uL Lymph # (Auto) 1.3 L (1.5-3.5) 10^3/uL [place] # (Auto) 0.4 (0.0-1.0) 10^3/uL Eos # (Auto) 0.3 (0.0-0.7) 10^3/uL Baso # (Auto) 0.0 (0.0-0.1) 10^3/uL Absolute Nucleated RBC 0.00 x10^3/uL Nucleated RBC % 0.0 /100WBC PT 15.1 H (9.9-12.6) secs INR 1.4 H (0.8-1.2) APTT 31.1 (24.9-33.3) secs Sodium 139 (135-145) mmol/L Potassium 3.9 (3.5-4.5) mmol/L Chloride 106 (101-111) mmol/L Carbon Dioxide 28 (21-32) mmol/L Anion Gap 5.0 L (6-13) BUN 22 H (6-20) mg/dL Creatinine 1.2 (0.6-1.3) mg/dL Estimated GFR (MDRD) 44 L (>89) Glucose 100 (74-104) mg/dL Estimat Average Glucose (70-100) mg/dL Hemoglobin A1c % (4.27-6.07) % Calcium 9.1 (8.5-10.3) mg/dL Total Bilirubin 0.4 (0.2-1.0) mg/dL AST 12 (10-42) IU/L ALT 8 L (10-60) IU/L Alkaline Phosphatase 77 (42-121) IU/L Troponin I High Sens 13.6 (2.3-14.8) ng/L Total Protein 6.3 L (6.4-8.9) g/dL Albumin 3.5 (3.2-5.5) g/dL Globulin 2.8 (2.1-4.2) g/dL Albumin/Globulin Ratio 1.3 (1.0-2.2) Triglycerides 136 mg/dL Cholesterol 133 ( - 200) mg/dL LDL Cholesterol, Calc 51 ( - 129) mg/dL VLDL Cholesterol 27 mg/dL HDL Cholesterol 55 L (60 - ) mg/dL LDL/HDL Ratio 0.9 (<4.4) Cholesterol/HDL Ratio 2.4 (<4.4) Urine Color YELLOW Urine Clarity HAZY (CLEAR) Urine pH 6.0 (5.0-7.5) PH Ur Specific [place] 1.020 (1.002-1.030) Urine Protein TRACE (NEGATIVE) mg/dL Urine Glucose (UA) NEGATIVE (NEGATIVE) mg/dL Urine Ketones NEGATIVE (NEGATIVE) mg/dL Urine Occult Blood NEGATIVE (NEGATIVE) Urine Nitrite NEGATIVE (NEGATIVE) Urine Bilirubin NEGATIVE (NEGATIVE) Urine Urobilinogen 0.2 (NORMAL) (NORMAL) E.U./dL Ur Leukocyte Esterase SMALL H (NEGATIVE) Urine RBC 0-5 (0-5) /HPF Urine WBC 6-10 H (0-5) /HPF Ur Squamous Epith Cells FEW Squamous (<= Few) Urine Crystals 0-2 Calcium Oxalate /LPF Urine Bacteria Few (None Seen) /HPF Urine Culture Comments INDICATED 01/21/24 Range/Units 14:40 WBC 6.2 (4.8-10.8) x10^3/uL RBC 5.05 (4.20-5.40) 10^6/uL Hgb 13.5 (12.0-16.0) g/dL Hct 43.6 (37.0-47.0) % MCV 86.3 (81.0-99.0) fL MCH 26.7 L (27.0-31.0) pg MCHC 31.0 L (32.0-36.0) g/dL RDW 14.3 (12.0-15.0) % Plt Count 199 (130-450) 10^3/uL MPV 11.2 H (7.9-10.8) fL Neut # (Auto) 4.2 (1.5-6.6) 10^3/uL Lymph # (Auto) 1.3 L (1.5-3.5) 10^3/uL [place]alle # (Auto) 0.5 (0.0-1.0) 10^3/uL Eos # (Auto) 0.2 (0.0-0.7) 10^3/uL Baso # (Auto) 0.0 (0.0-0.1) 10^3/uL Absolute Nucleated RBC 0.00 x10^3/uL Nucleated RBC % 0.0 /100WBC PT 16.0 H (9.9-12.6) secs INR 1.5 H (0.8-1.2) APTT 31.4 (24.9-33.3) secs Sodium 135 (135-145) mmol/L Potassium 4.2 (3.5-4.5) mmol/L Chloride 103 (101-111) mmol/L Carbon Dioxide 26 (21-32) mmol/L Anion Gap 6.0 (6-13) BUN 18 (6-20) mg/dL Creatinine 1.4 H (0.6-1.3) mg/dL Estimated GFR (MDRD) 37 L (>89) Glucose 97 (74-104) mg/dL Estimat Average Glucose 111 H (70-100) mg/dL Hemoglobin A1c % 5.5 (4.27-6.07) % Calcium 9.2 (8.5-10.3) mg/dL Total Bilirubin 0.4 (0.2-1.0) mg/dL AST 13 (10-42) IU/L ALT 8 L (10-60) IU/L Alkaline Phosphatase 83 (42-121) IU/L Troponin I High Sens 15.3 H* (2.3-14.8) ng/L Total Protein 6.8 (6.4-8.9) g/dL Albumin 3.6 (3.2-5.5) g/dL Globulin 3.2 (2.1-4.2) g/dL Albumin/Globulin Ratio 1.1 (1.0-2.2) Triglycerides mg/dL Cholesterol ( - 200) mg/dL LDL Cholesterol, Calc ( - 129) mg/dL VLDL Cholesterol mg/dL HDL Cholesterol (60 - ) mg/dL LDL/HDL Ratio (<4.4) Cholesterol/HDL Ratio (<4.4) Urine Color Urine Clarity (CLEAR) Urine pH (5.0-7.5) PH Ur Specific [place] (1.002-1.030) Urine Protein (NEGATIVE) mg/dL Urine Glucose (UA) (NEGATIVE) mg/dL Urine Ketones (NEGATIVE) mg/dL Urine Occult Blood (NEGATIVE) Urine Nitrite (NEGATIVE) Urine Bilirubin (NEGATIVE) Urine Urobilinogen (NORMAL) E.U./dL Ur Leukocyte Esterase (NEGATIVE) Urine RBC (0-5) /HPF Urine WBC (0-5) /HPF Ur Squamous Epith Cells (<= Few) Urine Crystals /LPF Urine Bacteria (None Seen) /HPF Urine Culture Comments Assessment/Plan Problem List (1) Cerebrovascular accident (CVA): Impression: new left sided numbness. She has chronic left sided weakness. She notices that it is somewhat better today. Echocardiogram is pending MRI shows development of a right anterior cerebral artery distribution deep white matter infarct with resultant interval development of gliosis. This has occurred between the CT from 03/27/[address] from 01/02/2024. So she therefore has had development of a right anterior cerebral artery distribution CVA between interval studies, however, this does not explain her acute onset of left-sided numbness with this hospitalization.The development of gliosis is a much more chronic process than what would happen in the 24 hours since she initially presented to our institution. Telemetry monitoring does not show arrhythmia. I have reviewed the strips. She lists an ASA allergy, but is on Eliquis chronically. This was continued on admission. I have some concerns about this with her fall risk. PT and OT evaluations are also pending. She is already on Atorvastatin 40mg daily. I will continue this. CTA with noted stenosis in the VERONICA and MCA Qualifiers: CVA mechanism: thrombosis Laterality of affected vessel: right (2) Essential (primary) hypertension: Impression: Selected Entries 01/21/24 13:34 01/21/24 15:40 01/21/24 17:40 Blood Pressure 151/72 H 149/75 H 165/105 H Blood Pressure [Right Brachial artery] 01/21/24 18:54 01/21/24 19:36 01/21/24 20:09 Blood Pressure 159/77 H 202/102 H 152/122 H Blood Pressure [Right Brachial artery] 01/21/24 20:20 01/22/24 00:05 01/22/24 05:45 Blood Pressure Blood Pressure [Right Brachial artery] 139/76 H 150/69 H 154/77 H 01/22/24 09:00 Blood Pressure Blood Pressure [Right Brachial artery] 145/73 H We will allow for permissive hypertension. Reviewing records from [facility]- she is on furosemide and isosorbide for CHF/CAD. She is not on any antihypertensives as an outpatient. Labetalol for >220/120 (3) Chronic congestive heart failure: Impression: not currently having any hypoxia or difficulty breathing. I will continue her furosemide, and watch her potassium. BMP in the AM. K= 3.9 today. Qualifiers: Heart failure type: systolic Qualified Code(s): I50.22 - Chronic systolic (congestive) heart failure (4) Chronic renal insufficiency: Impression: Cr 1.2 today. Baseline seems to be about that (5) Anticoagulant long-term use: Impression: Due to DVT/PE and Protein C&S def as well as Leiden Factor V, according to patient. (6) Dementia: Impression: I am unsure of her baseline orientation. Today she is oriented to place and self, but not to time. Donepezil 10 mg daily continued. Qualifiers: Dementia type: unspecified type Dementia severity: moderate Dementia behavioral or psychological symptom: without behavioral, psychotic, or mood disturbance or anxiety Qualified Code(s): F03.B0 - Unspecified dementia, moderate, without behavioral disturbance, psychotic disturbance, mood disturbance, and anxiety (7) Anxiety with depression: Impression: I fausto continue her Duloxtetine 30mg daily,as well as sertraline 25 mg daily. I have spent 51 minutes in the care of this patient today. This includes time [id number], review and ordering of diagnostic imaging and laboratory studies.. Monitoring the patient's signs symptoms, evaluation of medication effectiveness and patient's response to treatment.
[2024-01-22] MEDS ORDERED: ONDANSETRON ODT 4 MG TABLET PO PRN (14:11)
[2024-01-22] MEDS ORDERED: ACETAMINOPHEN 325 MG TABLET PO PRN (14:11)
[2024-01-22] MEDS ORDERED: diphenhydrAMINE 25 MG CAPSULE PO PRN (14:11)
[2024-01-22] MEDS ORDERED: NON FORMULARY MED (Albuterol Sulfate [Ventolin Hfa] 90 mcg/actuation HFA aerosol inhaler) INH PRN (14:11)
[2024-01-22] MEDS ORDERED: ALBUTEROL NEB 2.5 MG/3 ML INH PRN (14:17)
--- NOTE | 2024-01-22 15:23 | PT Plan of Care ---
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 Pt lives at [facility] in [place] and has h/o CVAs with L sided deficits. Baseline mobility of stand pivot transfer using FWW to wc. Upon PT eval, pt is able to complete transfers out of bed and onto b/s commode with min to modAx2. Pt requires maxA for pericare and brief change. Pt demonstrates stand pivot transfer and lateral steps at EOB w/ FWW and minAx1. Cognition, mobility, and coordination appear same as previous PT eval in March 2023. Pt is presenting at baseline level of mobility. When medically clear, PT rec dc back to [facility] care with increased CG support as needed. PATIENT/FAMILY GOALS Patient/Family Goals: return home GOALS Improve gait ability to:: CGA Advance Assistive Device to:: Front Wheeled Walker Increase distance walked to (in feet):: 50 Reduce verbal cues to:: 1 Improve Sitting Balance to:: Good PLAN Frequency: Evaluation only, no further P.T. Duration: Until goals are met DISCHARGE RECOMMENDATIONS Discharge Location: Previous Living Situation Support/Services Needed: With assist DC Equipment Recommended: Front wheeled walker and Wheelchair Other Discharge Equipment: has FWW and wc Transport Needs at Discharge: BLS vs wc van Other: BLS d/t confusion, limited stand pivot capacity, nearly chair bound at baseline.
--- NOTE | 2024-01-22 15:29 | OT Plan of Care ---
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 A&O to person and time with choices. Met sitting EOB, performed sit to stand and SPT bed to commode MIN A using RW - MIN A perineal hygiene. At baseline pt requires ax1 all ADL's and ambulation. No acute deficits noted at this time requiring cont OT services. Rec pt d/c back to [facility] with prior level of care. OT Inpatient Plan PLAN Treatment Frequency: Evaluation only, no further O.T. -Discharge Recommendations Discharge Location: Previous Living Situation Support/Services Needed: With assist Recommended Equipment: Raised Toilet Seat, Commode, Grab bars, Shower/bath chair, Adaptive Self Care Devices and Other Transport Needs at Discharge: BLS vs van
[2024-01-22] MEDS: FUROSEMIDE 20 MG TABLET PO SCH (15:45)
[2024-01-22] MEDS: ZINC OXIDE 20% OINT 30 GM TUBE TOP PRN (19:30)
[2024-01-22] MEDS ORDERED: ATORVASTATIN 40 MG TABLET PO SCH (21:00)
--- NOTE | 2024-01-22 21:13 | PROVIDER PROGRESS NOTE ---
Canoe Inspector Final Note Canoe Inspector Final Note Canoe Inspector Final Note: Called by RN stating " Dx: Stroke eval Patient has had three episodes of diarrhea the last two hours. The first two were liquid and third one was soft and loose. Would you like to order a C diff stool sample? Pt is also requesting an antidiarrhea medication. Thank you" Chart briefly reviewed, have ordered Imodium for now discussed with RN
[2024-01-22] MEDS: ATORVASTATIN 40 MG TABLET PO SCH (21:33)
[2024-01-22] MEDS: LOPERAMIDE 2 MG CAPSULE PO PRN (21:33)
[2024-01-23 05:45] LABS: BASOPHILS % (AUTO) 0.6 %; EOSINOPHILS # (AUTO) 0.2 10^3/uL (0.0-0.7); EOSINOPHILS % (AUTO) 2.4 %; HCT - HEMATOCRIT 41.7 % (37.0-47.0); HGB - HEMOGLOBIN 13.1 g/dL (12.0-16.0); LYMPHOCYTES # (AUTO) 1.7 10^3/uL (1.5-3.5); LYMPHOCYTES % (AUTO) 27.4 %; MEAN CORPUSCULAR HGB CONC 31.4 g/dL (32.0-36.0); MEAN PLATELET VOLUME 11.2 fL (7.9-10.8); MONOCYTES # (AUTO) 0.5 10^3/uL (0.0-1.0); MONOCYTES % (AUTO) 7.5 %; NEUTROPHILS # (AUTO) 3.9 10^3/uL (1.5-6.6); NEUTROPHILS % (AUTO) 61.9 %; PLT - PLATELET COUNT 176 10^3/uL (130-450); RED BLOOD COUNT 4.85 10^6/uL (4.20-5.40); RED CELL DISTRIBUTION WIDTH 14.5 % (12.0-15.0); WHITE BLOOD COUNT 6.2 x10^3/uL (4.8-10.8)
[2024-01-23 06:01] LABS: CALCIUM 9.2 mg/dL (8.5-10.3); CREATININE 1.2 mg/dL (0.6-1.3); POTASSIUM 3.7 mmol/L (3.5-4.5)
[2024-01-23] MEDS: POTASSIUM CHLORIDE 10 MEQ CAPSULE PO SCH (08:48)
[2024-01-23] MEDS: CYANOCOBALAMIN 500 MCG TABLET PO SCH (08:49)
[2024-01-23 09:16] VITALS: BP 152/71; TEMP 98.1; O2SAT 93
[2024-01-23] MEDS: CYANOCOBALAMIN 1,000 MCG/ML VIAL SUBQ ONE (10:56)
--- NOTE | 2024-01-23 12:39 | Discharge Summary ---
"Discharge Summary Admit Date: 01/21/24 Discharge Date: 01/23/24 Discharging Provider: Michelle Vargas PA-C Primary Care Provider: DESTINEY Lynn Code Status: Do Not Attempt Resuscitation Discharge Facility Name: [facility] DIAGNOSES Discharge Diagnoses with Status of Each Condition: CVA, ruled out. Essential hypertension Chronic congestive heart failure Chronic renal insufficiency Long-term anticoagulant use Dementia Anxiety with depression HPI History of Present Illness: Mrs. Mooney is a pleasant 73yoF with a history of hypertension, hypelipidemia, DVT,PE on Eliquis, history of stroke with residual L sided weakness presented to the ED with increased fall and left sided numbness of a one day duration. In the ED she had a NIHSS of 4. CT head was negative for acute findings. CTA did show stenosis within the branches of the VERONICA and vertebral arteries. Due to timeframe of onset and patient being on anticoagulation, teleneurolgy did not feel she was a tPA or thrombectomy candidate. Due to worsening focal neurologic deficits from her baseline, I agreed to admit the patient to the ED for further management and evaluation of suspected acute stroke. during my evaluation at bedside, patient was in no acute distress. She still endorsed the left-sided numbness. she stated the weakness was unchanged from her baseline. Plan for admission to complete monitoring and workup was discussed with her and she agreed to plan of care and admission. This evaluation was performed utilizing tele-health tools including phone and live-video. CONSULTS | PROCEDURES Consultations: Telestroke neurology by [facility]. Recommendation was to admit for stroke fan Procedures: Chest x-ray: Mild congestive heart failure Head CT: No acute intracranial pathology or significant changes from previous study CTA of the head neck: Occlusion of the right A2 VERONICA and right intradural vertebral artery. Left vertebral artery is widely patent. 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 Singleton mucosal paranasal sinus disease Brain MRI: No acute stroke identified. No acute intracranial process. Progressive small vessel ischemic change which is severe. Interval development of a right anterior cerebral distribution deep white matter infarct with resultant interval development of gliosis. This is not an acute CVA. Echocardiogram: Normal LV size and systolic function with left ventricular ejection fraction of 65 to 70%. Dilated RV size and normal systolic function. Mild to moderate mitral regurgitation. No PFO. HOSPITAL COURSE Hospital Course: (1) Cerebrovascular accident (CVA): Impression: new left sided numbness. She has chronic left sided weakness. She notices that it is somewhat improved on HD #2.. Echocardiogram completed. MRI shows development of a right anterior cerebral artery distribution deep white matter infarct with resultant interval development of gliosis. This has occurred between the CT from 03/27/[address] from 01/02/2024. So she therefore has had development of a right anterior cerebral artery distribution CVA between interval studies, however, this does not explain her acute onset of left-sided numbness with this hospitalization.The development of gliosis is a much more chronic process than what would happen in the 24 hours since she initially presented to our institution. Telemetry monitoring does not show arrhythmia. I have reviewed the strips. She lists an ASA allergy, but is on Eliquis chronically. This was continued on admission. I have some concerns about this with her fall risk. PT and OT recommend return to memory care with increased caregiver support as needed She is already on Atorvastatin 40mg daily. I will continue this. CTA with noted stenosis in the VERONICA and MCA Qualifiers: CVA mechanism: thrombosis Laterality of affected vessel: right (2) Essential (primary) hypertension: Impression: Selected Entries 01/20/2413:34 01/20/2415:40 01/20/2417:40 Blood Pressure 151/72 H 149/75 H 165/105 H Blood Pressure [Right Brachial artery] 01/20/2418:54 01/20/2419:36 01/21/2420:09 Blood Pressure 159/77 H 202/102 H 152/122 H Blood Pressure [Right Brachial artery] 01/21/2420:20 01/22/2400:05 01/21/2405:45 Blood Pressure Blood Pressure [Right Brachial artery] 139/76 H 150/69 H 154/77 H 01/21/2409:00 Blood Pressure Blood Pressure [Right Brachial artery] 145/73 H We allow permissive hypertension for 48 hours.. Reviewing records from [facility]- she is on furosemide and isosorbide for CHF/CAD. She is not on any antihypertensives as an outpatient. Labetalol for >220/120 (3) Chronic congestive heart failure: Impression: not currently having any hypoxia or difficulty breathing. I will continue her furosemide, Potassium 3.7 prior to dc. Qualifiers: Heart failure type: systolic Qualified Code(s): I50.22 - Chronic systolic (congestive) heart failure (4) Chronic renal insufficiency: Impression: Cr 1.2f, baseline (5) Anticoagulant long-term use: Impression: Due to DVT/PE and Protein C&S def as well as Leiden Factor V, according to patient. (6) Dementia: Impression: I am unsure of her baseline orientation. Today she is oriented to place and self, but not to time. Donepezil 10 mg daily continued. Qualifiers: Dementia type: unspecified type Dementia severity: moderate Dementia behavioral or psychological symptom: without behavioral, psychotic, or mood disturbance or anxiety Qualified Code(s): F03.B0 - Unspecified dementia, moderate, without behavioral disturbance, psychotic disturbance, mood disturbance, and anxiety (7) Anxiety with depression: Impression: I fausto continue her Duloxtetine 30mg daily,as well as sertraline 25 mg daily. ALLERGIES Allergies Allergy/AdvReac Type Severity Reaction Status Date / Time aspirin Allergy Unknown Verified 01/21/24 13:40 cortisone Allergy Hives Verified 01/21/24 13:40 gabapentin (From Neurontin) Allergy Rash Verified 01/21/24 13:40 lisinopril Allergy Unknown Verified 01/21/24 13:40 MEDICATIONS Ambulatory Orders Medication Instructions Recorded Confirmed acetaminophen 325 mg capsule 325 mg PO Q6H PRN fever or pain 11/27/23 01/21/24 (Tylenol) albuterol sulfate 90 mcg/actuation 1 inh inhalation Q4H PRN shortness 11/27/23 01/22/24 aerosol inhaler (Ventolin HFA) of breath or wheezing apixaban 5 mg tablet (Eliquis) 5 mg PO BID #90 tabs 11/27/23 01/21/24 atorvastatin 40 mg tablet (Lipitor) 40 mg PO QPM 11/27/23 01/22/24 azelastine 0.05 % eye drops 1 drp ophthalmic (eye) BID 11/27/23 01/21/24 carboxymethylcellulose sodium 1 % 1 drp ophthalmic (eye) .Q2-4H 11/27/23 01/22/24 eye liquid gel drops (Refresh WHILE AWAKE Liquigel) donepezil 10 mg tablet 10 mg PO QDAY 11/27/23 01/21/24 furosemide 20 mg tablet 20 mg PO QDAY 11/27/23 01/21/24 isosorbide mononitrate 60 mg 60 mg PO QDAY 11/27/23 01/21/24 tablet,extended release 24 hr loperamide 2 mg capsule 2 mg PO Q8H PRN loose stool 11/27/23 01/21/24 (Anti-Diarrheal (loperamide)) lorazepam 0.5 mg tablet 0.5 mg PO QDAY PRN anxiety 11/27/23 01/21/24 melatonin 3 mg capsule 3 mg PO HS PRN sleep 11/27/23 01/21/24 ondansetron 4 mg disintegrating 4 mg PO Q6H PRN nausea and vomiting 11/27/23 01/22/24 tablet oxycodone 5 mg capsule 5 mg PO QID PRN pain 11/27/23 01/21/24 pantoprazole 20 mg tablet,delayed 20 mg PO QDAY 11/27/23 01/21/24 release psyllium husk 3.4 gram/5.4 gram 1 tbsp PO QDAY 11/27/23 01/21/24 oral powder (Metamucil) sennosides 8.6 mg capsule (senna) 17.2 mg PO DAILY PRN constipation 11/27/23 01/22/24 sertraline 25 mg tablet 25 mg PO QDAY 11/27/23 01/21/24 tramadol 25 mg tablet 25 mg PO Q6H PRN pain 11/27/23 01/21/24 duloxetine 30 mg capsule,delayed 30 mg PO QDAY #90 caps 12/31/23 01/21/24 release mecobalamin (vitamin B12) 1,000 1,000 mcg PO QDAY #90 tabs 01/15/24 01/21/24 mcg chewable tablet diphenhydramine HCl 25 mg capsule 25 mg PO Q6H PRN itching 01/22/24 01/22/24 (Allergy (diphenhydramine)) potassium chloride 10 mEq 10 meq PO DAILY 01/22/24 01/22/24 tablet,extended release PHYSICAL EXAM AT DISCHARGE General Appearance: positive No acute distress and Alert Eyes Bilateral: positive Normal inspection and PERRL ENT: positive ENT inspection nml Neck: positive Nml inspection Respiratory: positive No respiratory distress and Breath sounds nml Cardiovascular: positive Regular rate & rhythm Abdomen: positive No distention Back: positive Nml inspection Skin: positive Color nml Extremities: positive Non-tender and No pedal edema Neurologic/Psychiatric: positive Oriented x3 LABS 01/23/24 05:15 01/23/24 05:15 FOLLOW UP Follow Up: PCP 7-10 days TIME SPENT Time Spent in Discharge (Minutes): 45 Discharge Plan Discharge Condition: Stable Prescriptions: Continued carboxymethylcellulose sodium [Refresh Liquigel] 1 % drops, liquid gel 1 drp ophthalmic (eye) .Q2-4H WHILE AWAKE azelastine 0.05 % drops 1 drp ophthalmic (eye) BID pantoprazole 20 mg tablet,delayed release (DR/EC) 20 mg PO QDAY loperamide [Anti-Diarrheal (loperamide)] 2 mg capsule 2 mg PO Q8H PRN (Reason: loose stool) donepezil 10 mg tablet 10 mg PO QDAY furosemide 20 mg tablet 20 mg PO QDAY atorvastatin [Lipitor] 40 mg tablet 40 mg PO QPM acetaminophen [Tylenol] 325 mg capsule 325 mg PO Q6H PRN (Reason: fever or pain) sertraline 25 mg tablet 25 mg PO QDAY lorazepam 0.5 mg tablet 0.5 mg PO QDAY PRN (Reason: anxiety) Metamucil 3.4 gram/5.4 gram powder 1 tbsp PO QDAY Rx Instructions: mix into at least 8 oz of water or juice before administering isosorbide mononitrate 60 mg tablet extended release 24 hr 60 mg PO QDAY albuterol sulfate [Ventolin HFA] 90 mcg/actuation HFA aerosol inhaler 1 inh inhalation Q4H PRN (Reason: shortness of breath or wheezing) tramadol 25 mg tablet 25 mg PO Q6H PRN (Reason: pain) senna 8.6 mg capsule 17.2 mg PO DAILY PRN (Reason: constipation) oxycodone 5 mg capsule 5 mg PO QID PRN (Reason: pain) ondansetron 4 mg tablet,disintegrating 4 mg PO Q6H PRN (Reason: nausea and vomiting) melatonin 3 mg capsule 3 mg PO HS PRN (Reason: sleep) Eliquis 5 mg tablet 5 mg PO BID Qty: 90 1RF mecobalamin (vitamin B12) 1,000 mcg tablet,chewable 1,000 mcg PO QDAY Qty: 90 3RF potassium chloride 10 mEq tablet extended release 10 meq PO DAILY Patient Comments: take 1 tab daily w/ furosemide diphenhydramine HCl [Allergy (diphenhydramine)] 25 mg capsule 25 mg PO Q6H PRN (Reason: itching) duloxetine 30 mg capsule,delayed release(DR/EC) 30 mg PO QDAY Qty: 90 2RF Activity Restrictions: Activity as Tolerated Diet: Regular Health Concerns: You came in with new numbness on your left side. It did get better. Imaging showed that you had not had an acute stroke. You had an echocardiogram which is an ultrasound on your heart which was normal. We have continued you on your Eliquis medication. You have an allergy to aspirin so we we have not started you on that. You need to continue to take your blood pressure medicine and all of your other home medications. Print Language: [place] Follow-up Care: Lizzeth Mora ARNP [Provider Admit Priv/Credential] -"
== END 2024-01-23 13:35 | DRG 92 ==
LOC: MS2 13:21 → ED 13:21
PROVIDERS: ADMIT Hospitalist; ATTEND Hospitalist
DX: E78.5 Hyperlipidemia, unspecified; Z86.711 Personal history of pulmonary embolism; I69.354 Hemiplegia and hemiparesis following cerebral infarction affecting left non-dominant side; R20.2 Paresthesia of skin; Z91.81 History of falling; F32.A Depression, unspecified; R79.89 Other specified abnormal findings of blood chemistry; R20.0 Anesthesia of skin; G93.89 Other specified disorders of brain; N18.9 Chronic kidney disease, unspecified; Z79.01 Long term (current) use of anticoagulants; Z79.899 Other long term (current) drug therapy; R00.1 Bradycardia, unspecified; I65.01 Occlusion and stenosis of right vertebral artery; I66.11 Occlusion and stenosis of right anterior cerebral artery; R19.7 Diarrhea, unspecified; I50.22 Chronic systolic (congestive) heart failure; I13.0 Hypertensive heart and chronic kidney disease with heart failure and stage 1 through stage 4 chronic kidney disease, or unspecified chronic kidney disease; F03.B0 Unspecified dementia, moderate, without behavioral disturbance, psychotic disturbance, mood disturbance, and anxiety; Z87.891 Personal history of nicotine dependence; I63.30 Cerebral infarction due to thrombosis of unspecified cerebral artery; I10 Essential (primary) hypertension; Z86.718 Personal history of other venous thrombosis and embolism; F41.9 Anxiety disorder, unspecified